=== PATIENT | male | born 1975 | race Caucasian/White ===

== ENCOUNTER 2017-03-20 07:12 | Emergency (ER) | payer BC ==
[~2017-03-20] VITALS: Ht 182.9 cm; Wt 77.1 kg
[~2017-03-20 07:12] MED LIST: HYDR-34 PO
[2017-03-20] MEDS ORDERED: ALTEPLASE 100 MG/VIAL (ACTIVASE) IV ONE ×2 (07:16→08:15)
[2017-03-20 07:35] LABS: BASOPHILS % (AUTO) 0 % (0-10); EOSINOPHILS # (AUTO) 0.2 10^3/uL (0.0-0.3); EOSINOPHILS % (AUTO) 2 % (0-10); LYMPHOCYTES # (AUTO) 3.6 X 10^3 (1.0-4.0); LYMPHOCYTES % (AUTO) 45 % (12-44); MEAN CORPUSCULAR HEMOGLOBIN 32 PG (25-34); MEAN CORPUSCULAR HGB CONC 35 G/DL (32-36); MEAN CORPUSCULAR VOLUME 90 FL (80-99); MEAN PLATELET VOLUME 10.1 FL (7.4-10.4); MONOCYTES # (AUTO) 0.6 X 10^3 (0.0-1.0); MONOCYTES % (AUTO) 8 % (0-12); NEUTROPHILS # (AUTO) 3.6 X 10^3 (1.8-7.8); NEUTROPHILS % (AUTO) 45 % (42-75); PLATELET COUNT 295 10^3/uL (130-400); RED BLOOD COUNT 5.49 10^6/uL (4.35-5.85); RED CELL DISTRIBUTION WIDTH 12.6 % (10.0-14.5)
[2017-03-20 07:51] LABS: PROTHROMBIN TIME PATIENT 13.3 SEC (12.2-14.7)
--- NOTE | 2017-03-20 07:51 | ED Neurological Problem ---
General Stated Complaint: POSS STROKE Source: patient, family, EMS Exam Limitations: physical impairment History of Present Illness Time seen by provider: 07:12 Initial Comments This 41-year-old Lebanese presents to the emergency room with acute strokelike symptoms that started abruptly at approximately 06:15. He had no symptoms upon waking this morning and developed these symptoms in the bathroom. Symptoms include right-sided gaze preference, draw of the head to the right, flaccid left upper extremity, and profound left-sided facial droop with dysarthria. Patient did fall after onset of symptoms but denies any injury. Stroke activation was paged prior to patient arrival based on EMS report. Patient was taken directly to CT upon arrival. Vital signs were stable. Fingerstick blood sugar was 140 per EMS. Allergies and Home Medications Allergies Coded Allergies: No Known Drug Allergies (Unverified , 12/28/09) Home Medications No Active Prescriptions or Reported Meds Constitutional: no symptoms reported Eyes: No Symptoms Reported Ears, Nose, Mouth, Throat: no symptoms reported Respiratory: no symptoms reported Cardiovascular: no symptoms reported Gastrointestinal: no symptoms reported Genitourinary: no symptoms reported Musculoskeletal: no symptoms reported Skin: no symptoms reported Psychiatric/Neurological: See HPI Endocrine: No Symptoms Reported Past Vvxxlzj-Dxamqd-Zzhqdg Hx Patient Social History Recent Foreign Travel: No Contact w/Someone Who Travel: No Surgeries History of Surgeries: Yes (cyst removed from chest) Surgeries: Abdominal (umbilical hernia repair) Respiratory History of Respiratory Disorde: No Cardiovascular History of Cardiac Disorders: Yes Cardiac Disorders: Deep Vein Thrombosis (after leg fracture) Neurological History of Neurological Disord: No Reproductive System Hx Reproductive Disorders: No Genitourinary History of Genitourinary Disor: No Gastrointestinal History of Gastrointestinal Di: No Endocrine History of Endocrine Disorders: Yes (hypo-testosterone) HEENT History of HEENT Disorders: No Cancer History of Cancer: No Psychosocial History of Psychiatric Problem: No Integumentary History of Skin or Integumenta: No Physical Exam Vital Signs Vital Sign - Last 12Hours 03/20/17 07:12 Temp 98.1 Pulse 79 Resp 18 B/P (MAP) 154/82 (106) Pulse Ox 98 Capillary Refill : General Appearance: WD/WN, mild distress HEENT: PERRL/EOMI, normal ENT inspection Neck: normal inspection Respiratory: lungs clear, normal breath sounds, no respiratory distress, no accessory muscle use Cardiovascular: regular rate, rhythm, no edema, no murmur Gastrointestinal: normal bowel sounds, non tender, soft Extremities: normal inspection, no pedal edema Neurologic/Psychiatric: alert, oriented x 3, abnormal executive director II-XII (left-sided facial droop causing dysarthria), EOM palsy (right-sided gaze preference, difficulty tracking to the left), facial droop, motor weakness (flaccid left upper extremity. Minimal weakness of the left leg) Crainal Nerves: normal hearing, PERRL, abnormal eye position, abnormal speech Coordination/Gait: ABN nose to finger (L) Motor/Sensory: sensory deficit (left upper extremity), weak motor strength LUE Skin: normal color, warm/dry Stroke NIH Stroke Scale Assessment Select: Initial Level of Consciousness: 0=Alert (0), Level of Consciousness- Questions: 0=Answers both month/age (0), LOC Commands: 0=Performs both tasks (0) , Gaze: Partial Gaze Palsy (1), Visual Disla: 2=Complete hemianopia (2), Facial Movement (Facial Paresis): 3=Complete paralysis (3), Motor Function-Arms Right: 0=No drift (0), Motor Function-Arms Left: 4=No movement (4), Motor Function-Legs Right: 0=No drift (0), Motor Function-Legs Left: 0=No drift (0), Limb Ataxia: 0=Absent (0), Sensory: 1=Mild to Moderate loss (1), Best Language: 0=No aphasia (0), Dysarthria: 1=Mild to moderate loss (1), Extinction & Inattention: 0=No abnormality (0), Total: 12 Progress/Results/Core Measures Results/Orders Lab Results Laboratory Tests Test 03/20/17 07:20 03/20/17 08:13 Range/Units White Blood Count 8.0 4.3-11.0 10^3/uL Red Blood Count 5.49 4.35-5.85 10^6/uL Hemoglobin 17.5 13.3-17.7 G/DL Hematocrit 50 40-54 % Mean Corpuscular Volume 90 80-99 FL Mean Corpuscular Hemoglobin 32 25-34 PG Mean Corpuscular Hemoglobin Concent 35 32-36 G/DL Red Cell Distribution Width 12.6 10.0-14.5 % Platelet Count 295 130-400 10^3/uL Mean Platelet Volume 10.1 7.4-10.4 FL Neutrophils (%) (Auto) 45 42-75 % Lymphocytes (%) (Auto) 45 H 12-44 % Monocytes (%) (Auto) 8 0-12 % Eosinophils (%) (Auto) 2 0-10 % Basophils (%) (Auto) 0 0-10 % Neutrophils # (Auto) 3.6 1.8-7.8 X 10^3 Lymphocytes # (Auto) 3.6 1.0-4.0 X 10^3 Monocytes # (Auto) 0.6 0.0-1.0 X 10^3 Eosinophils # (Auto) 0.2 0.0-0.3 10^3/uL Basophils # (Auto) 0.0 0.0-0.1 10^3/uL Prothrombin Time 13.3 12.2-14.7 SEC INR Comment 1.0 0.8-1.4 Activated Partial Thromboplast Time 23 L 24-35 SEC D-Dimer 0.50 H 0.00-0.49 UG/ML Sodium Level 139 135-145 MMOL/L Potassium Level 3.8 3.6-5.0 MMOL/L Chloride Level 105 98-107 MMOL/L Carbon Dioxide Level 22 21-32 MMOL/L Anion Gap 12 5-14 MMOL/L Blood Urea Nitrogen 14 7-18 MG/DL Creatinine 0.96 0.60-1.30 MG/DL Estimat Glomerular Filtration Rate > 60 BUN/Creatinine Ratio 15 Glucose Level 130 H 70-105 MG/DL Calcium Level 9.1 8.5-10.1 MG/DL Total Bilirubin 0.8 0.1-1.0 MG/DL Aspartate Amino Transf (AST/SGOT) 24 5-34 U/L Alanine Aminotransferase (ALT/SGPT) 35 0-55 U/L Alkaline Phosphatase 47 40-136 U/L Troponin I < 0.30 <0.30 NG/ML Total Protein 7.6 6.4-8.2 GM/DL Albumin 4.0 3.2-4.5 GM/DL Urine Color YELLOW Urine Clarity CLEAR Urine pH 7 5-9 Urine Specific Brownell 1.010 L 1.016-1.022 Urine Protein 1+ H NEGATIVE Urine Glucose (UA) NEGATIVE NEGATIVE Urine Ketones NEGATIVE NEGATIVE Urine Nitrite NEGATIVE NEGATIVE Urine Bilirubin NEGATIVE NEGATIVE Urine Urobilinogen NORMAL NORMAL MG/DL Urine Leukocyte Esterase 1+ H NEGATIVE Urine RBC (Auto) NEGATIVE NEGATIVE Urine RBC NONE /HPF Urine WBC RARE /HPF Urine Squamous Epithelial Cells RARE /HPF Urine Crystals NONE /LPF Urine Bacteria NEGATIVE /HPF Urine Casts NONE /LPF Urine Mucus NEGATIVE /LPF Urine Culture Indicated NO My Orders Orders - ANTHONY GRAVES MD Cbc With Automated Diff (03/20/17 07:16) Protime With Inr (03/20/17 07:16) Partial Thromboplastin Time (03/20/17 07:16) Comprehensive Metabolic Panel (03/20/17 07:16) Fibrin Degradation Products (03/20/17 07:16) Troponin I (03/20/17 07:16) Ua Culture If Indicated (03/20/17 07:16) Chest 1 View, Ap/Pa Only (03/20/17 07:16) Catheter(Urinary) Insert & Ass 03,15 (03/20/17 07:16) Ekg Tracing (03/20/17 07:16) Accucheck Stat ONCE (03/20/17 07:16) Saline Lock/Iv-Start (03/20/17 07:16) Saline Lock/Iv-Start (03/20/17 07:16) Vital Signs - Stroke Q15M (03/20/17 07:16) Ct Head Wo-R/O Stroke (03/20/17 07:16) O2 (03/20/17 07:16) Intake & Output 06,14,22 (03/20/17 07:16) Monitor-Rhythm Ecg Trace Only (03/20/17 07:16) Dysphagia Screening Tool (03/20/17 07:16) Post Thrombolytic Adminstratio (03/20/17 07:16) Alteplase (Activase) (Activase Injection (03/20/17 07:16) Ct Angio Head/Neck (03/20/17 07:19) Alteplase (Activase) (Activase Injection (03/20/17 08:15) Post Thrombolytic Adminstratio (03/20/17 08:03) Medications Given in ED Vital Signs/I&O Vital Sign - Last 12Hours 12/13/17 12/13/17 07:12 09:28 Temp 98.1 98.0 Pulse 79 81 Resp 18 16 B/P (MAP) 154/82 (106) Pulse Ox 98 97 ECG Initial ECG Impression Date: Mar 20, 2017 Initial ECG Impression Time: 07:41 Initial ECG Rate: 76 Initial ECG Rhythm: Normal Sinus Initial ECG Intervals: Normal Initial ECG Impression: Normal Comment Normal sinus rhythm with no ST elevation or depression. No abnormal intervals or axis deviation. Diagnostic Imaging Diagonstic Imaging: CT Plain Films/CT/US/NM/MRI: head Comments CT head viewed by me and report reviewed. See report below: NAME: [facility] REC#: [id number] PT STATUS: REG ER : 1975 PHYSICIAN: ANTHONY GRAVES MD ADMIT DATE: 03/20/17/ER Signed Date of Exam: 03/20/17 CT HEAD WO-R/O STROKE INDICATION: Right-sided deviation. Left-sided weakness. Drooling. Images of the head were obtained without contrast. The ventricles are normal in size, shape and position. There is no acute parenchymal hemorrhage, edema or mass. There is no extra-axial mass or hemorrhage. IMPRESSION: Normal CT of the head. Dictated by: Dictated on workstation # [id number] Dict: 03/20/17 075 Trans: 03/20/17 0755 Interpreted by: DAVID MICHAELS MD Electronically signed by: DAVID MICHAELS MD 03/20/17 0755 Diagonstic Imaging: Xray Plain Films/CT/US/NM/MRI: chest Comments NAME: [facility] REC#: [id number] PT STATUS: REG ER : 1975 PHYSICIAN: ANTHONY GRAVES MD ADMIT DATE: 03/20/17/ER Signed Date of Exam: 03/20/17 CHEST 1 VIEW, AP/PA ONLY EXAMINATION: Portable upright radiograph of the chest. INDICATION: Left-sided weakness. FINDINGS: There is slight rotation of the patient's position to the right side. The lungs are clear. The heart size is normal. No effusion or pneumothorax The mediastinum and lonny appear unremarkable. IMPRESSION: Unremarkable exam. Dictated by: Dictated on workstation # [id number] Dict: 03/20/17 08 Trans: 03/20/17852 Interpreted by: WENCESLAO BHAKTA MD Electronically signed by: WENCESLAO BHAKTA MD 03/20/1753 Diagonstic Imaging: CT Plain Films/CT/US/NM/MRI: other (angiogram of head and neck) Comments CT angiogram head and neck viewed by me and report reviewed. See report below: NAME: [facility] REC#: [id number] PT STATUS: REG ER : 1975 PHYSICIAN: ANTHONY GRAVES MD ADMIT DATE: 03/20/17/ER Signed Date of Exam: 03/20/17 CT ANGIO HEAD/NECK PROCEDURE: CT angiography of the head and CT angiography of the neck with and without contrast. TECHNIQUE: Contiguous noncontrast images were obtained from the skull base through the vertex. After intravenous contrast administration, helical CT angiography of the neck was performed. Source data was reformatted into multiple MIP projections. Delayed post contrast acquisition was also obtained. INDICATION: Right-sided weakness. Head is turned to the right. Muscle spasms. There are normal origins of the brachiocephalic vessels. The carotid and vertebral arteries are widely patent. There is no stenosis, occlusion or dissection in the cervical vessels. The right vertebral artery is diminutive compared to the left and appears to end in a PICA. Intracranial view shows the distal internal carotid and basilar arteries to be widely patent. There is no evidence for aneurysm, AVM, neovascularity or major vessel occlusion. The ventricles are normal in size, shape and position. There is no acute parenchymal hemorrhage, edema, mass or abnormal parenchymal enhancement. There is no extra-axial mass or hemorrhage. IMPRESSION: Normal CT angiography of the head and neck. Dictated by: Dictated on workstation # [id number] Dict: 03/20/17 0749 Trans: 03/20/17755 Interpreted by: DAVID MICHAELS MD Electronically signed by: DAVID MICHAELS MD 03/20/17755 Departure Impression Impression: Primary Impression: Acute right MCA stroke Disposition: 02 XFER SHT-TRM HOSP Condition: Stable Transfer Time Spoke to Accepting Phy: 08:03 Transfer Progress Notes 08:45 - Dr. Craven called back and stated patient does have an occlusion of the right M2 identified. Transfer to [facility] has been recommended. Patient and family agree and helicopter has been launched. Transfer Time: 09:28 Transfer Facility: [place], [place] Method of Transfer: Air Departure-Patient Inst. Referrals: EUSEBIA DEAL MD (PCP/Family) Primary Care Physician Scripts No Active Prescriptions or Reported Meds Critical Care Note Critical Care Start Time: 07:12 Progress 08:15 - Patient was taken immediately to CT scan upon arrival. CT was followed by CT angiogram of the head and neck. NIH stroke score was 12. TPA was immediately prepped. Stroke activation was paged prior to patient arrival. Patient cleared to the TPA exclusion criteria. CT of the head was read as normal. Risks and benefits of TPA were discussed with patient and his . Risks include up to a 6 percent chance of life-threatening bleed. They both expressed understanding and requested TPA administration. TPA is presently infusing. TPA bolus was administered at 08:04. I discussed the case with Dr. Craven, [facility] stroke neurologist. Results of imaging were reviewed with her. CT angiogram was also read as negative with no evidence of large vessel occlusion. Dr. Craven requested the images be clouded to her for review. That process is underway. 08:36 - Dr. Craven notified this provider that she identified no large thrombus on the CT angiogram. She will have the neuroradiologist review as well. Patient is having some improvement in head movement and sensation of the left upper extremity. 08:45 - Dr. Craven states the neuroradiologist at [facility] was able to identify an occlusion of the right TM 2. Patient has consented to transfer to [facility]. Symptoms are improving. 09:08 - Helicopter has just arrived for transfer. Most recent NIH was 5 and symptoms continue to improve. ANTHONY GRAVES MD Mar 20, 2017 07:51
--- NOTE | 2017-03-20 07:56 | Diagnostic Imaging Report ---
INDICATION: Right-sided deviation. Left-sided weakness. Drooling. Images of the head were obtained without contrast. The ventricles are normal in size, shape and position. There is no acute parenchymal hemorrhage, edema or mass. There is no extra-axial mass or hemorrhage. IMPRESSION: Normal CT of the head. Dictated by: Dictated on workstation # [id number]
--- NOTE | 2017-03-20 07:56 | Diagnostic Imaging Report ---
PROCEDURE: CT angiography of the head and CT angiography of the neck with and without contrast. TECHNIQUE: Contiguous noncontrast images were obtained from the skull base through the vertex. After intravenous contrast administration, helical CT angiography of the neck was performed. Source data was reformatted into multiple MIP projections. Delayed post contrast acquisition was also obtained. INDICATION: Right-sided weakness. Head is turned to the right. Muscle spasms. There are normal origins of the brachiocephalic vessels. The carotid and vertebral arteries are widely patent. There is no stenosis, occlusion or dissection in the cervical vessels. The right vertebral artery is diminutive compared to the left and appears to end in a PICA. Intracranial view shows the distal internal carotid and basilar arteries to be widely patent. There is no evidence for aneurysm, AVM, neovascularity or major vessel occlusion. The ventricles are normal in size, shape and position. There is no acute parenchymal hemorrhage, edema, mass or abnormal parenchymal enhancement. There is no extra-axial mass or hemorrhage. IMPRESSION: Normal CT angiography of the head and neck. Dictated by: Dictated on workstation # [id number]
[2017-03-20 07:57] LABS: ALANINE AMINOTRANSFERASE 35 U/L (0-55); ANION GAP 12 MMOL/L (5-14); ASPARTATE AMINO TRANSFERASE 24 U/L (5-34); BILIRUBIN,TOTAL 0.8 MG/DL (0.1-1.0); BLOOD UREA NITROGEN 14 MG/DL (7-18); BUN/CREATININE RATIO 15; CALCIUM 9.1 MG/DL (8.5-10.1); CARBON DIOXIDE 22 MMOL/L (21-32); CHLORIDE 105 MMOL/L (98-107); CREATININE SERUM 0.96 MG/DL (0.60-1.30); GFR ESTIMATED > 60; GLUCOSE 130 MG/DL (70-105); POTASSIUM 3.8 MMOL/L (3.6-5.0); SODIUM 139 MMOL/L (135-145); TOTAL PROTEIN 7.6 GM/DL (6.4-8.2)
[2017-03-20 08:03] LABS: TROPONIN I < 0.30 NG/ML (<0.30)
--- NOTE | 2017-03-20 08:03 | Diagnostic Imaging Report ---
EXAMINATION: Portable upright radiograph of the chest. INDICATION: Left-sided weakness. FINDINGS: There is slight rotation of the patient's position to the right side. The lungs are clear. The heart size is normal. No effusion or pneumothorax The mediastinum and lonny appear unremarkable. IMPRESSION: Unremarkable exam. Dictated by: Dictated on workstation # [id number]
[2017-03-20 08:25] LABS: BILIRUBIN,URINE NEGATIVE (NEGATIVE); KETONES,URINE NEGATIVE (NEGATIVE); LEUKOCYTE ESTERASE ,URINE 1+ (NEGATIVE); NITRITE,URINE NEGATIVE (NEGATIVE); PH,URINE 7 (5-9); PROTEIN,URINE 1+ (NEGATIVE); UROBILINOGEN,URINE NORMAL (NORMAL)
[2017-03-20 08:35] LABS: SQUAMOUS EPITHELIAL CELL,UR RARE /HPF; WBC,URINE RARE /HPF
[2017-03-20 09:28] VITALS: BP 143/85
== END 2017-03-20 09:28 | disposition short-term general hospital (02) ==
LOC: EDUNIT# 07:12 → ER 07:13
DX: I63.411 Cerebral infarction due to embolism of right middle cerebral artery (principal); Z87.19 Personal history of other diseases of the digestive system; Z86.718 Personal history of other venous thrombosis and embolism
CPT/HCPCS: 36415; 51702; 70450; 70496; 70498; 71010; 80053; 81000; 84484; 85025; 85379; 85610; 85730; 93005; 93041

== ENCOUNTER → 2017-07-24 | Day surgery (SDC) | payer BC ==
[~2017-07-24] VITALS: Ht 188 cm; Wt 76.2 kg
[~2017-07-24] MED LIST changes: +LIDOCAINE 1% INJ 50 ML (XYLOCAINE) VIAL ONE
--- OUTSIDE RECORDS SUMMARY | 2017-07-24 15:01 | XMS REPORT | Encounter Summary ---
Author Author [facility] Organization [facility] Address Unknown Phone Unavailable Care Team Providers Care Abrasive Mixer Name Role Phone No Pcp, Na PCP Unavailable Reason for Visit * Reason Comments Post-hospital Follow Up Encounter Details Date Type Department Care Team Description 05/23/2017 Office Visit [facility] Shruthi Santana MD Cerebral infarction due [facility] [address] to thrombosis of right [facility] 2012 middle cerebral artery [address] [place] [address] (HCC) (Primary Dx) [place], [place] [phone] [id number] Social History Tobacco Use Types Packs/Day Years Used Date Never Smoker Smokeless Tobacco: Never Used Alcohol Use Drinks/Week oz/Week Comments No Sex Assigned at Date Recorded Not on file as of this encounter Last Filed Vital Signs Vital Sign Reading Time Taken Blood Pressure 124/72 05/23/2017 1:26 PM CIVIL CLERK Pulse 64 05/23/2017 1:26 PM CIVIL CLERK Temperature - - Respiratory Rate - - Oxygen Saturation - - Inhaled Oxygen - - Concentration Weight 76.2 kg (168 lb) 05/23/2017 1:26 PM CIVIL CLERK Height 188 cm (6' 2") 05/23/2017 1:26 PM CIVIL CLERK Body Mass Index 21.57 05/23/2017 1:26 PM CIVIL CLERK in this encounter Functional Status Functional Status Response Date of Assessment Does the patient have a hearing impairment: No 03/29/2017 Does the patient have a visual impairment: Yes 03/28/2017 Does the patient have impaired ambulation: Yes 03/28/2017 Does the patient have an activity of daily living Yes 03/28/2017 (ADL) impairment: Does the patient have an instrumental activity of Yes 03/28/2017 daily living (IADL) impairment: Cognitive Status Response Date of Assessment Does the patient have a cognitive impairment: Yes 03/28/2017 as of this encounter Instructions * Patient Instructions - Shruthi Santana MD - 05/23/2017 1:30 PM CIVIL CLERK Increase gabapentin to 300 mg twice daily x 4 days, then increase to 300 mg three times daily. Email [email or web address], in this encounter Progress Notes * Shruthi Santana MD - 05/23/2017 1:30 PM CIVIL CLERK Formatting of this note may be different from the original. Date of Service: 05/23/2017 Subjective: Thomas Osei is a 41 y.o. male. Patient was admitted 03/20/17 to at [facility]. On 03/20 AM patient developed acute onset of left facial droop and left UE weakness, initial NIHSS 12. He received IV tPA and had a CTA showing right M2 occlusion. He was transferred to [facility] for mechanical thrombectomy, however unfortunately this was unsuccessful. He was taken to NEICU with an NIHSS of 19. Stroke remained cryptogenic after expanded work-up ( hypercoagulable panel negative, TTE unremarkable, NICKO unremarkable, OSH CTA H/N without significant atherosclerosis, telemetry without atrial fibrillation). Patient was discharged to Rehab on 03/28, with new prescriptions of ASA 325 mg, atorvastatin 40, fluoxetine 20 mg qday. At time of discharge to Rehab, patient continued to have 0/5 strength in LUE, LLE, left sided extinction, left visual field cut. History of Present Illness Discharged from Rehab 05/01/2017. He continues in outpatient therapies, seeing PT /OT/Speech three times per week. Remains on ASA 325 mg tablet daily and atorvastatin 40 mg qday, tolerating both. No significant return of movement of LUE proximally, distally he has some ability to extend his wrist now. Continues to have LLE weakness with foot drop, he received his AFO last week. Last Saturday noted that he had more difficulty with stiffness in the jaw; this gets worse the more he chews or the longer he is speaking. Continues to have sharp, shooting pains intermittently in his left lower extremity; sometimes these are to the point of preventing sleep. 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 Review of Systems Musculoskeletal: Pain Neurological: Positive for speech difficulty, weakness and numbness. All other systems reviewed and are negative. Objective: aspirin 325 mg tablet Take 1 tablet by mouth daily. Take with food. atorvastatin (LIPITOR) 40 mg tablet Take 1 tablet by mouth daily. baclofen (LIORESAL) 20 mg tablet Take 1 tablet by mouth three times daily. docusate (COLACE) 100 mg capsule Take 1 capsule by mouth twice daily. fluoxetine (PROZAC) 20 mg capsule Take 1 capsule by mouth daily. gabapentin (NEURONTIN) 300 mg capsule Take 1 capsule by mouth at bedtime daily. melatonin 5 mg tab Take 1 tablet by mouth at bedtime daily. methocarbamol (ROBAXIN) 750 mg tablet Take 1 tablet by mouth three times daily as needed for Spasms. pantoprazole DR (PROTONIX) 40 mg tablet Take 1 tablet by mouth daily. senna (SENOKOT) 8.6 mg tablet Take 1 tablet by mouth twice daily. traZODone (DESYREL) 50 mg tablet Take 1 tablet by mouth at bedtime as needed. Vitals: 05/23/17 1326 BP: 124/72 Pulse: 64 Weight: 76.2 kg (168 lb) Height: 188 cm (74") Body mass index is 21.57 kg/m. Physical Exam General: Alert, does not appear in acute distress. HEENT: EOMI, nares patent, oropharynx unobstructed. CV: Distal pulses palpable. Capillary refill <2 seconds. Lungs: Non-labored respirations. Symmetric chest rise. No audible wheezing. Abdomen: Soft, non-tender, non-distended. Extremities: No clubbing, cyanosis or edema. Skin: Warm, dry, intact. Neuro: Mentation: Alert, oriented x 4. Speech: Mild dysarthria, diminished prosody of speech, however fluent with intact comprehension, object naming intact. CN: Visual villatoro with restriction of left visual villatoro compared to right however improved from admission exam, EOMI without nystagmus, continued left lower facial droop and mild left upper facial weakness, hearing grossly intact to conversation, palatal elevation symmetric, no SCM/trapezius atrophy, tongue is midline without atrophy. Motor: Normal bulk bilaterally. Mild spasticity LUE, normal tone RUE/RLE. Strength remains 1/5 LUE proximally and distally, 2/5 LHF, could not test distal lower extremity with AFO. RUE/RLE 5/5 strength throughout. Sensation: Intact to light touch, neglect improved. Coordination: RUE finger to nose without ataxia, not tested on left. Reflexes: 3/4 hyper-reflexia on left biceps, brachioradialis, patellar. 2/4 throughout right. Gait: Not tested, patient primarily in wheelchair. Assessment: 41 y/o male with right M2 occlusion on 03/20 resulting in moderate right MCA distribution stroke. Patient received IV tPA initially however had unsuccessful thrombectomy, with ongoing deficits of left sided weakness face and arm > leg. Overall is stable and remains working with outpatient physical/occupation/ speech therapies. No significant return of movement on left side, and remains wheelchair bound. Spasticity and neuropathic pain has been an ongoing issue; patient complains of "tightness" in left jaw and more difficulty speaking and swallowing after prolonged activity. Believe this is more related to spasticity than affects of new stroke, however advised patient to contact if this does not improve or worsens and will need to reconsider imaging. Stroke work-up thus far , including expanded hypercoagulable panel has been negative. Patient is presently wearing a 30-day event monitor, discussed need for implantable loop recorder in the future. Plan: 1) Right MCA Stroke - Continue ASA 325 mg qday - Continue atorvastatin 40 mg qday, LDL 118 with goal <70 - HbA1c within goal at 5.2% - BP stable at 124/72, patient is not on any anti-hypertensives. Advised to spot -check this at home with BP monitor. - Never smoker, encouraged continued cessation - Continue baclofen 20 mg TID for post-stroke spasticity. Increase gabapentin to 300 mg TID. - Can increase melatonin to 10 mg QHS for insomnia. - Will discuss implantable loop recorder at next visit if 30-day event monitor is unremarkable. - Patient is to contact clinic if dsyarthria/dysphagia difficulties starting last Saturday do not improve for consideration of repeat MRI Brain. Patient seen and discussed with Dr. Bird. Shruthi Santana MD Stroke Fellow in this encounter Plan of Treatment Not on fileas of this encounter Visit Diagnoses Diagnosis Cerebral infarction due to thrombosis of right middle cerebral artery (HCC) - Primary Cerebral thrombosis with cerebral infarction
--- OUTSIDE RECORDS SUMMARY | 2017-07-24 15:01 | XMS REPORT | Encounter Summary ---
Author Author [facility] Organization [facility] Address Unknown Phone Unavailable Care Team Providers Care Foster Care Case Manager Name Role Phone No Pcp, Na PCP Unavailable Reason for Referral * Consult, Test & Treat (Routine) Status Reason Specialty Diagnoses / Referred By Referred To Procedures Contact Contact Closed Specialty Cardiology Diagnoses [facility] Cerebrovascular MD Kyler [address] Required accident (CVA) [address] due to embolism [address] of right middle MS 2011 [place] [address] (HCC) [phone] Phone: Scheduling Instructions Within the next 1-2 weeks. Encounter Details Date Type Department Care Team Description 07/09/2017 Orders Only [facility] Shruthi Santana MD Cerebrovascular accident Physicians-Neurology [address] (CVA) due to embolism of [facility] ON [address] [place] [address] right middle cerebral [address] [place] [address] artery (HCC) (Primary Dx) [place], [place] [phone] Social History Tobacco Use Types Packs/Day Years Used Date Never Smoker Smokeless Tobacco: Never Used Alcohol Use Drinks/Week oz/Week Comments No Sex Assigned at Date Recorded Not on file as of this encounter Functional Status Functional Status Response [...] impairment: Yes 03/28/2017 as of this encounter Plan of Treatment Name Priority Associated Diagnoses Order Schedule AMB REFERRAL TO ADULT CARDIOLOGY Routine Cerebrovascular accident Ordered: 07/09/2017 (CVA) due to embolism of right middle cerebral artery (HCC) as of this encounter Visit Diagnoses Diagnosis Cerebrovascular accident (CVA) due to embolism of right middle cerebral artery (HCC) - Primary
--- OUTSIDE RECORDS SUMMARY | 2017-07-24 15:01 | XMS REPORT | Encounter Summary ---
Author Author [facility] Organization [facility] Address Unknown Phone Unavailable Care Team Providers Care High Lighter Name Role Phone No Pcp, Na PCP Unavailable Encounter Details Date Type Department Care Team Description 06/18/2017 [facility] Cardiology Uvaldo Alas MD Encounter [address] [place] [address] [place] [address] MS [address] [place], [place] [phone] Social History Tobacco Use Types Packs/Day Years [...] impairment: Yes 03/28/2017 as of this encounter Medications at Time of Discharge Medication Sig. Disp. Refills Start Date End Date aspirin 325 mg tablet Take 1 tablet by mouth 03/28/2017 daily. Take with food. atorvastatin (LIPITOR) 40 Take 1 tablet by mouth 30 tablet 1 2017 mg tablet daily. baclofen (LIORESAL) 20 mg Take 1 tablet by mouth 90 tablet 1 2017 tablet three times daily. docusate (COLACE) 100 mg Take 1 capsule by mouth 180 capsule 3 2016 capsule twice daily. fluoxetine (PROZAC) 20 mg Take 1 capsule by mouth 30 capsule 1 2017 capsule daily. gabapentin (NEURONTIN) Take 1 capsule by mouth 30 capsule 2017 300 mg capsule at bedtime daily. melatonin 5 mg tab Take 1 tablet by mouth at 60 each 3 05/01/2017 bedtime daily. methocarbamol (ROBAXIN) Take 1 tablet by mouth 60 tablet 3 05/01/2017 750 mg tablet three times daily as needed for Spasms. pantoprazole DR Take 1 tablet by mouth 30 tablet 1 05/01/2017 (PROTONIX) 40 mg tablet daily. senna (SENOKOT) 8.6 mg Take 1 tablet by mouth 90 tablet 3 03/28/2017 tablet twice daily. traZODone (DESYREL) 50 mg Take 1 tablet by mouth at 90 tablet 3 2017 tablet bedtime as needed. as of this encounter Plan of Treatment Not on fileas of this encounter Visit Diagnoses Not on filein this encounter
--- OUTSIDE RECORDS SUMMARY | 2017-07-24 15:01 | XMS REPORT | Encounter Summary ---
Author Author [facility] Organization [facility] Address Unknown Phone Unavailable Care Team Providers Care Housekeeper/Laundry Assistant Name Role Phone No Pcp, Na PCP Unavailable Encounter Details Date Type Department Care Team Description 05/23/2017 Documentation [facility] Shruthi Santana MD Physicians-Neurology [address] [facility] [address] [place] [address] [place] [address] [place], [place] [phone] Social History Tobacco Use Types Packs/Day Years [...]
--- OUTSIDE RECORDS SUMMARY | 2017-07-24 15:01 | XMS REPORT | Encounter Summary ---
Author Author [facility] Organization [facility] Address Unknown Phone Unavailable Care Team Providers Care Cryptography Teacher Name Role Phone No Pcp, Na PCP Unavailable Reason for Visit * Reason Comments General Question Encounter Details Date Type Department Care Team Description 05/09/2017 Telephone [facility] - Alaina Holloway MD General Question Rehabilitation Medicine [address] [facility] [address] [place] [address] [address] [facility] MED [phone] [place] [address] Social History Tobacco Use Types Packs/Day Years [...] impairment: Yes 03/28/2017 as of this encounter Miscellaneous Notes * Telephone Encounter - Merly Sales MA - 05/09/2017 11:07 AM SHOE WORKER Received a call from lisa assembly repairer for mr mckeon asking a question about him being on a heart monitor. After reviewing the pts chart Dr Holloway was not involved with any cardiology care and I gave her the number to the cardiology department. She was fine with this information. Call ended. in this encounter Plan of Treatment Not on fileas of this encounter Visit Diagnoses Not on filein this encounter
--- OUTSIDE RECORDS SUMMARY | 2017-07-24 15:01 | XMS REPORT | Clinical Summary ---
Author Author [facility] Organization [facility] Address Unknown Phone Unavailable Care Team Providers Care French Drawer Name Role Phone No Pcp, Na PCP Unavailable Source Comments Some departments are not documenting in the electronic medical record. If you do not see the information that you expected, contact Release of Information in the Health Information Management department at [phone] for further assistance in locating additional records.[facility] Allergies No Known Allergies Current Medications Prescription Sig. Disp. Refills Start End Date Status Date aspirin 325 mg tablet Take 1 tablet by mouth 03/28/20 Active daily. Take with food. 17 docusate (COLACE) 100 mg Take 1 capsule by mouth 180 capsule 3 Active capsule twice daily. 17 senna (SENOKOT) 8.6 mg Take 1 tablet by mouth 90 tablet 3 03/28/20 Active tablet twice daily. 17 gabapentin (NEURONTIN) Take 1 capsule by mouth 30 capsule 1 05/01/19 Active 300 mg capsule at bedtime daily. 18 atorvastatin (LIPITOR) 40 Take 1 tablet by mouth 30 tablet 05/01/19 Active mg tablet daily. 18 baclofen (LIORESAL) 20 mg Take 1 tablet by mouth 90 tablet 1 05/01/19 Active tablet three times daily. 18 fluoxetine (PROZAC) 20 mg Take 1 capsule by mouth 30 capsule 1 Active capsule daily. [address] Take 1 tablet by mouth 30 tablet 1 05/01/19 Active (PROTONIX) 40 mg tablet daily. 18 melatonin 5 mg tab Take 1 tablet by mouth at 60 each 3 05/01/19 Active bedtime daily. 18 traZODone (DESYREL) 50 mg Take 1 tablet by mouth at 90 tablet 3 Active tablet bedtime as needed. 18 methocarbamol (ROBAXIN) Take 1 tablet by mouth 60 tablet 3 05/01/19 Active 750 mg tablet three times daily as 18 needed for Spasms. 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 Therefore he does not have an indication for therapeutic anticoagulation and should be continued on aspirin therapy. He can follow up with us on a PRN basis. Patient seen and discussed with Dr. Esparza. Left-sided neglect 03/28/2017 Impaired mobility and ADLs 03/28/2017 Left hemiparesis (HCC) 03/23/2017 Cerebrovascular accident (CVA) due to thrombosis of right middle cerebral artery (HCC) Stroke (cerebrum) (HCC) 03/20/2017 Resolved Problems Problem Noted Date Resolved Date Hyponatremia 03/29/2017 04/19/2017 UTI (urinary tract infection) 03/28/2017 04/19/2017 Urinary retention 03/28/2017 04/19/2017 Cerebral edema (HCC) 03/25/2017 03/28/2017 Clonus 03/23/2017 03/28/2017 Oropharyngeal dysphagia 03/23/2017 03/28/2017 Hypokalemia 03/23/2017 03/28/2017 DVT (deep venous thrombosis) (HCC) 03/21/2017 03/28/2017 Overview: Hx of left leg thrombus following traumatic fracture. Was on warfarin x 3 months. Encounters Date Type Specialty Care Team Description 07/09/2017 Telephone Neurology Shruthi Santana MD Referral 07/09/2017 Orders Only Neurology Shruthi Santana MD Cerebrovascular accident (CVA) due to embolism of right middle cerebral artery (HCC) (Primary Dx) 07/03/2017 Lucina Riggins, heel nailing machine operator Only 07/03/2017 Lucina Riggins RN Documentation Only 06/19/2017 Telephone Rehabilitation Medicine Alaina Holloway MD Records Request 06/18/2017 Hospital Cardiology Uvaldo Alas MD Encounter 05/23/2017 Office Visit Neurology Shruthi Santana MD Cerebral infarction due to thrombosis of right middle cerebral artery (HCC) (Primary Dx) 05/23/2017 Documentation Neurology Shruthi Santana MD 05/15/2017 Office Visit Oncology Melodie Esparza MD Cerebrovascular accident (CVA) due to thrombosis of right middle cerebral artery (HCC); History of DVT (deep vein thrombosis) 05/09/2017 Telephone Rehabilitation Medicine Alaina Holloway MD General Question 04/30/2017 Procedure Pass Rehabilitation 03/28/2017 Hospital Rehabilitation Alaina Holloway MD Cerebrovascular accident - Encounter (CVA) due to thrombosis 05/01/2017 of right middle cerebral artery (HCC) from Last 3 Months Family History Medical History Relation Name Comments Stroke Mother Relation Name Status Comments Father Alive Mother Alive Social History Tobacco Use Types Packs/Day Years Used Date Never Smoker Smokeless Tobacco: Never Used Alcohol Use Drinks/Week oz/Week Comments No Sex Assigned at Date Recorded Not on file Last Filed Vital Signs Vital Sign Reading Time Taken Blood Pressure 124/72 05/23/2017 1:26 PM PILLING MACHINE OPERATOR Pulse 64 05/23/2017 1:26 PM PILLING MACHINE OPERATOR Temperature 36.9 C (98.5 F) 05/15/2017 2:37 PM PILLING MACHINE OPERATOR Respiratory Rate 20 05/15/2017 2:37 PM PILLING MACHINE OPERATOR Oxygen Saturation 97% 05/01/2017 6:32 AM PILLING MACHINE OPERATOR Inhaled Oxygen - - Concentration Weight 76.2 kg (168 lb) 05/23/2017 1:26 PM PILLING MACHINE OPERATOR Height 188 cm (6' 2") 05/23/2017 1:26 PM PILLING MACHINE OPERATOR Body Mass Index 21.57 05/23/2017 1:26 PM PILLING MACHINE OPERATOR Plan of Treatment Health Maintenance Due Date Last Done Comments PHYSICAL (COMPREHENSIVE) 1984 EXAM PERTUSSIS VACCINE 1988 HIV SCREENING 1992 TETANUS VACCINE 1994 INFLUENZA VACCINE 01/06/2018 Implants Implanted Type Area Nuclear Medicine Medical Director Device Expiration Model / Identifier Date Serial / Lot Device Closure 70cm 8fr .038in Right: TERUMO:TERUMO [id number] 2017 [id number] / Angio-Seal Vip [employer]-Plus - Sn/A Femoral MED 1813 N/A / Implanted: Qty: 1 on 03/20/2017 by Artery [id number] Arben Diaz MD Results * EVENT MONITOR (06/18/2017 10:59 AM) Component Value Ref Range Referring Provider Iris Santana Specimen Performing Laboratory OTHER OUTSIDE LAB Narrative 1.The patient is monitored for 35 days with a cardio labs auto triggered looping event monitor for evaluation of bradycardia 2.There are 2 transmissions.No symptoms reported with either transmission.On both occasions the patient is in sinus bradycardia with heart rates of 55-60 bpm with no pauses.On one recording there are occasional PVCs. 3.There are no symptomatic recordings 4.There are no pauses.There is no bradycardia identified other than sinus bradycardia.There are no significant arrhythmias.There are only 2 transmissions Prabhjot Bates MD * UA REFLEX CULTURE LABEL (04/30/2017 5:45 PM) Component Value Ref Range UA Reflex Culture LAB LABEL Specimen Performing Laboratory [facility] [address] [place], [place] [id number] * URINALYSIS MICROSCOPIC REFLEX TO CULTURE (04/30/2017 5:45 PM) Component Value Ref Range WBCs,UA 0-2 0 - 2 /HPF RBCs,UA 0-2 0 - 3 /HPF Comment,UA Urine submitted for reflex culture if criteria are met:WBC>10, positive nitrite and/or >=1+ leukocyte esterase. If quantity is not sufficient, an addendum will follow. Hyaline Cast 0-2 Specimen Performing Laboratory U[facility] MAIN [facility] [address] [place] [id number] * URINALYSIS DIPSTICK REFLEX TO CULTURE (04/30/2017 5:45 PM) Component Value Ref Range Color,UA YELLOW Turbidity,UA CLEAR CLEAR-CLEAR Specific Hiko-Urine 1.019 1.003 - 1.035 pH,UA 6.0 5.0 - 8.0 Protein,UA NEG NEG-NEG Glucose,UA NEG NEG-NEG Ketones,UA NEG NEG-NEG Bilirubin,UA NEG NEG-NEG Blood,UA NEG NEG-NEG Urobilinogen,UA NORMAL NORM-NORMAL Nitrite,UA NEG NEG-NEG Leukocytes,UA NEG NEG-NEG Urine Ascorbic Acid, UA NEG NEG-NEG Specimen Performing Laboratory U[facility] MAIN LAB [address] [place] [id number] * CT HEAD WO CONTRAST (04/30/2017 11:12 AM) Specimen Performing Laboratory [facility] RAD RESULTS Impressions 1. Expected evolution of the large right subacute to chronic right MCA territory infarct with resolution of associated mass effect. 2. Subtle decreased density in the right thalamus is likely related to Wallerian degeneration. New right thalamic ischemia is considered less likely. Approved by Xiang Ruffin D.O. on 04/30/2017 11:53 AM By my electronic signature, I attest that I have personally reviewed the images for this examination and formulated the interpretations and opinions expressed in this report Finalized by Nathan Lazo M.D. on 04/30/2017 11:54 AM. Dictated by Xiang Ruffin D.O. on 04/30/2017 11:18 AM. Narrative EXAM: CT HEAD HISTORY: Male, 41 years old. Functional decline, increased difficulty with motor initiation. TECHNIQUE: Multiple contiguous axial images were obtained of the brain without intravenous contrast. COMPARISON: Multiple prior CT head examinations including the most recent dated 03/23/2017 FINDINGS: Expected evolution of the large now late subacute to chronic right MCA territory infarct, with resolution of mass effect and developing mild associated ex vacuo dilatation of the right lateral ventricle. Subtle decreased density in the right thalamus is likely related to Wallerian degeneration. Small posterior right cerebellar infarct is unchanged. There is no midline shift or mass effect. The lora white matter interfaces are otherwise maintained. The basal cisterns are patent. There is no evidence of acute intracranial hemorrhage or extra-axial fluid collection. The mastoid air cells and visualized paranasal sinuses are well-aerated. Procedure Note Interface, Radiant Results - 04/30/2017 11:57 AM PILLING MACHINE OPERATOR EXAM: CT HEAD HISTORY: Male, 41 years old. Functional decline, increased difficulty with motor initiation. TECHNIQUE: Multiple contiguous axial images were obtained of the brain without intravenous contrast. COMPARISON: Multiple prior CT head examinations including the most recent dated 03/23/2017 FINDINGS: Expected evolution of the large now late subacute to chronic right MCA territory infarct, with resolution of mass effect and developing mild associated ex vacuo dilatation of the right lateral ventricle. Subtle decreased density in the right thalamus is likely related to Wallerian degeneration. Small posterior right cerebellar infarct is unchanged. There is no midline shift or mass effect. The lora white matter interfaces are otherwise maintained. The basal cisterns are patent. There is no evidence of acute intracranial hemorrhage or extra-axial fluid collection. The mastoid air cells and visualized paranasal sinuses are well-aerated. IMPRESSION 1. Expected evolution of the large right subacute to chronic right MCA territory infarct with resolution of associated mass effect. 2. Subtle decreased density in the right thalamus is likely related to Wallerian degeneration. New right thalamic ischemia is considered less likely. Approved by Xiang Ruffin D.O. on 04/30/2017 11:53 AM By my electronic signature, I attest that I have personally reviewed the images for this examination and formulated the interpretations and opinions expressed in this report Finalized by Nathan Lazo M.D. on 04/30/2017 11:54 AM. Dictated by Xiang Ruffin D.O. on 04/30/2017 11:18 AM. * CBC (04/30/2017 8:47 AM) Component Value Ref Range White Blood Cells 5.8 4.5 - 11.0 K/UL RBC 5.12 4.4 - 5.5 M/UL Hemoglobin 16.3 13.5 - 16.5 GM/DL Hematocrit 47.7 40 - 50 % MCV 93.1 80 - 100 FL MCH 31.8 26 - 34 PG MCHC 34.2 32.0 - 36.0 G/DL RDW 12.9 11 - 15 % Platelet Count 200 150 - 400 K/UL MPV 8.5 7 - 11 FL Specimen Performing Laboratory Blood [facility] [address] [place] [id number] * BASIC METABOLIC PANEL (04/30/2017 8:47 AM) Component Value Ref Range Sodium 137 137 - 147 MMOL/L Potassium 3.7 3.5 - 5.1 MMOL/L Chloride 104 98 - 110 MMOL/L CO2 26 21 - 30 MMOL/L Anion Gap 7 3 - 12 Glucose 99 70 - 100 MG/DL Blood Urea Nitrogen 14 7 - 25 MG/DL Creatinine 0.84 0.4 - 1.24 MG/DL Calcium 9.8 8.5 - 10.6 MG/DL eGFR Non >60 >60 mL/min Comment: The eGFR is not validated for use in drug dosing adjustments.Continue to use estimated creatinine clearance per dosing reference text.Please contact the Clinical Pharmacist for questions. eGFR >60 >60 mL/min Comment: The eGFR is not validated for use in drug dosing adjustments.Continue to use estimated creatinine clearance per dosing reference text.Please contact the Clinical Pharmacist for questions. Specimen Performing Laboratory Blood [facility] [address] [place] [address] from Last 3 Months
--- OUTSIDE RECORDS SUMMARY | 2017-07-24 15:01 | XMS REPORT | Continuity of Care Document ---
Author Author [facility] Organization [facility] Address Unknown Phone Unavailable Care Team Providers Care Principal Software Engineer Name Role Phone [employer] Unavailable Unavailable Problems Medications Allergies, Adverse Reactions, Alerts Immunizations Results Vital Signs Encounters Location Location Details Encounter Type Encounter Number Reason For Visit Attending Provider ADM Date DC Date Status Source INPATIENT [id number] GRISELDA LOZANO 03/20/20172016 Active [facility] REHAB [id number] GEOVANNY LINK V 03/28/20172017 Active [facility] CA SERIES [id number] ABDMAHSA CAPRI 04/17/2017 Active [facility] [place] SER[place] [id number] ABDULRAGABRIELLEEM CAPRI 05/15/2017 Active [facility] OUTPATIENT [id number] GENARO FARMER 05/23/2017 Active [facility] OUTPATIENT [id number] MAU HICKMAN 05/28/2017 Active [facility] OUTPATIENT [id number] GRISELDA LOZANO 06/18/20172017 Active [facility] O GEOVANNY LINK V 07/29/2017 Active [facility] Procedures Plan of Care Social History Assessment and Plan Family History Advance Directives Functional Status
--- OUTSIDE RECORDS SUMMARY | 2017-07-24 15:01 | XMS REPORT | Encounter Summary ---
Author Author [facility] Organization [facility] Address Unknown Phone Unavailable Care Team Providers Care Economics Faculty Member Name Role Phone No Pcp, Na PCP Unavailable Reason for Visit * Reason Comments Records Request Encounter Details Date Type Department Care Team Description 06/19/2017 Telephone [facility] - Alaina Holloway MD Records Request Rehabilitation Medicine [address] [place] [address] MED [phone] [place] [address] Social History Tobacco Use Types [...] Telephone Encounter - Merly Sales MA - 06/19/2017 10:10 AM CDT Per pt request last 3 notes from when the pt was admitted sent over by fax to [phone]. in this encounter Plan of Treatment Not on fileas of this encounter Visit Diagnoses Not on filein this encounter
--- OUTSIDE RECORDS SUMMARY | 2017-07-24 15:01 | XMS REPORT | Encounter Summary ---
Author Author [facility] Organization [facility] Address Unknown Phone Unavailable Care Team Providers Care Liquid Natural Gas Plant Operator Name Role Phone No Pcp, Na PCP Unavailable Encounter Details Date Type Department Care Team Description 07/03/2017 Hosp [facility] Lucina Donnelly, community development manager [address] [place] [address] Social History Tobacco Use Types Packs/Day Years [...] impairment: Yes 03/28/2017 as of this encounter Progress Notes * Lucina Donnelly, CHARLIE - 07/03/2017 10:40 AM CDT 3 month follow up phone call completed with patient who reports that he has been attending day program at [facility] 3 days a week, planning to transition to outpatient therapy close to home in July. Patient is ambulating with a cane in last few weeks and doesn't need a wheelchair for mobility now. He has some return in his shoulder muscle of left arm, no use of left hand. His sets up his medications. He wore an event monitor but isn't sure whether he needs further cardiac rhythm assessment. Emailed Dr Santana/Pelon to inquire about further cardiac workup and medication frequency for gabapentin/baclofen. Reviewed stroke education. Estimated mRS of 3. in this encounter Plan of Treatment Not on fileas of this encounter Visit Diagnoses Not on filein this encounter
--- OUTSIDE RECORDS SUMMARY | 2017-07-24 15:01 | XMS REPORT | Encounter Summary ---
Author Author [facility] Organization [facility] Address Unknown Phone Unavailable Care Team Providers Care District Court Justice Name Role Phone No Pcp, Na PCP Unavailable Reason for Visit * Reason Comments Referral Encounter Details Date Type Department Care Team Description 07/09/2017 Telephone [facility] Shruthi Santana MD Referral Physicians-Neurology [address] [facility] [address] [place] [address] [place], [place] [phone] Social History Tobacco Use Types Packs/Day Years [...]
--- OUTSIDE RECORDS SUMMARY | 2017-07-24 15:01 | XMS REPORT | Encounter Summary ---
Author Author [facility] Organization [facility] Address Unknown Phone Unavailable Care Team Providers Care Historian Research Assistant Name Role Phone No Pcp, Na PCP Unavailable Encounter Details Date Type Department Care Team Description 07/03/2017 Hosp Medical Telemetry Lucina Donnelly RN Documentation [address] [place] [address] Social History Tobacco Use Types Packs/Day Years [...]
--- OUTSIDE RECORDS SUMMARY | 2017-07-24 15:01 | XMS REPORT | Encounter Summary ---
Author Author [facility] Organization [facility] Address Unknown Phone Unavailable Care Team Providers Care Disk Recoater Name Role Phone No Pcp, Na PCP Unavailable Reason for Visit * Reason Comments Heme/Onc Care New Patient * Consult, Test & Treat (Routine) Status Reason Specialty Diagnoses / Referred By Referred To Procedures Contact Contact New Request Internal Medicine Diagnoses Isaias Martino, / Oncology PAY, Dx: Melodie Peterson MD Hypercoag [employer] [address], [address] Referral: [address] [place] [address] [place], [address] Phone: Insurance: [facility] PPO EILEEN Scott [phone] P Fax: rocedures [phone] -NEW PATIENT Encounter Details Date Type Department Care Team Description 05/15/2017 Office Visit [facility] Melodie Esparza MD [facility] Exam [address] (CVA) due to thrombosis [address] [place] [address] [place] [address] artery (HCC); [phone] History of DVT (deep vein thrombosis) Social History Tobacco Use Types Packs/Day Years Used Date Never Smoker Smokeless Tobacco: Never Used Alcohol Use Drinks/Week oz/Week Comments No Sex Assigned at Date Recorded Not on file as of this encounter Last Filed Vital Signs Vital Sign Reading Time Taken Blood Pressure 136/82 05/15/2017 2:37 PM DIRECTOR OF ENTERTAINMENT Pulse 62 05/15/2017 2:37 PM DIRECTOR OF ENTERTAINMENT Temperature 36.9 C (98.5 F) 05/15/2017 2:37 PM DIRECTOR OF ENTERTAINMENT Respiratory Rate 20 05/15/2017 2:37 PM DIRECTOR OF ENTERTAINMENT Oxygen Saturation - - Inhaled Oxygen - - Concentration Weight - - Height 188 cm (6' 2") 05/15/2017 2:37 PM DIRECTOR OF ENTERTAINMENT Body Mass Index - - in this encounter Functional Status Functional Status [...] this encounter Instructions * Patient Instructions - Sil Johnson RN - 05/15/2017 2:40 PM DIRECTOR OF ENTERTAINMENT We understand that your time is important and want your visit to be as timely as possible. In order for your appointments to occur as closely as possible to the scheduled time, please review the following additional instructions. ? Please arrive 15 minutes prior to your first scheduled appointment time to complete the registration process. ? Bring your photo ID and insurance card with you to check in o If your first appointment is with lab (blood draw) or with your provider, check in on the second floor (Main level). o If your appointment is for lab (blood draw) only, check in on the third floor. in this encounter Progress Notes * Melodie Esparza MD - 05/15/2017 2:40 PM DIRECTOR OF ENTERTAINMENT Formatting of this note may be different from the original. Name: Thomas Osei : 1975 AGE: 41 y.o. DATE OF SERVICE: 05/15/2017 Subjective: Reason for Visit: Follow up stroke and thrombophilia workup Heme/Onc Care and New Patient Thomas Osei is a 41 y.o. male. No matching staging information was found for the patient. Mr. Osei is a 41 year old male with past medical history of remote provoked DVT LE after trauma to his leg. He was seen initially during 03/28 - hospitalization for development of a large right sided MCA stroke. It is unclear why this happened and patient had hemorrhagic conversion. He went to [facility] rehab afterwards and has had some improvement but still marked left sided weakness. He also has some left cheek and tongue numbness. Denies fever, chills , nausea or vomiting. He has no other symptoms today. He is here with his . Review of Systems HENT: Negative. Respiratory: Negative. Cardiovascular: Negative. Gastrointestinal: Negative. Genitourinary: Negative. Musculoskeletal: Negative. Skin: Negative. Neurological: Positive for weakness and numbness. Hematological: Negative. Psychiatric/Behavioral: Negative. Objective: aspirin 325 mg tablet Take 1 [...] by mouth at bedtime as needed. Vitals: 05/15/17 1437 BP: 136/82 Pulse: 62 Resp: 20 Temp: 36.9 C (98.5 F) Height: 188 cm (74") There is no height or weight on file to calculate BMI. Pain Score: Zero Pain Addressed: N/A Patient Evaluated for a Clinical Trial: Patient not eligible for a treatment trial (including not needing treatment, needs palliative care, in remission). Eastern Cooperative Oncology Group performance status is 0, Fully active, able to carry on all pre-disease performance without restriction.. Physical Exam Constitutional: He is oriented to person, place, and time. He appears well- developed and well-nourished. HENT: Head: Normocephalic and atraumatic. Eyes: EOM are normal. Pupils are equal, round, and reactive to light. Neck: Normal range of motion. Neck supple. Cardiovascular: Normal rate and regular rhythm. No murmur heard. Pulmonary/Chest: Effort normal and breath sounds normal. No respiratory distress. He has no wheezes. Abdominal: Soft. Bowel sounds are normal. He exhibits no distension. Musculoskeletal: Normal range of motion. He exhibits no edema. Neurological: He is alert and oriented to person, place, and time. Left sided UE 0/5 weakness and LE 1-2/5 weakness. Left cheek numbness. Some delayed speech. Skin: Skin is warm and dry. No erythema. Psychiatric: He has a normal mood and affect. 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 Therefore he does not have an indication for therapeutic anticoagulation and should be continued on aspirin therapy. He can follow up with us on a PRN basis. Patient seen and discussed with Dr. Esparza. ATTESTATION I personally performed the lima portions of the E/M visit, discussed case with resident and concur with resident documentation of history, physical exam, assessment, and treatment plan unless otherwise noted. Staff name: Melodie sEparza MD Date: 05/15/2017 in this encounter Miscellaneous Notes * Assessment & Plan Note - Krzysztof Hurtado DO - 05/15/2017 4:09 PM DIRECTOR OF ENTERTAINMENT Associated Problem(s): History of DVT (deep vein thrombosis) While he had an extensive acute CVA thrombophilia workup is negative. Therefore he does not have an indication for therapeutic anticoagulation and should be continued on aspirin therapy. He can follow up with us on a PRN basis. Patient seen and discussed with Dr. Esparza. in this encounter Plan of Treatment Not on fileas of this encounter Visit Diagnoses Diagnosis Cerebrovascular accident (CVA) due to thrombosis of right middle cerebral artery (HCC) History of DVT (deep vein thrombosis) Personal history of venous thrombosis and embolism
--- OUTSIDE RECORDS SUMMARY | 2017-07-24 15:04 | XMS REPORT | Encounter Summary ---
Author Author [facility] Organization [facility] Address Unknown Phone Unavailable Care Team Providers Care Fuel Injection Servicer Name Role Phone No Pcp, Na PCP Unavailable Reason for Visit * Auth/Cert Status Reason Specialty Diagnoses / Referred By Referred To Procedures Contact Contact Diagnoses STORKE Stroke (HCC) Encounter Details Date Type Department Care Team Description 03/28/2017 Hospital R ACUTE REHAB UNIT Geovanny Holloway MD Cerebrovascular accident - Encounter [address] (CVA) due to thrombosis 05/01/2017 [place] [address] of right middle cerebral [phone] artery (HCC) Social History Tobacco Use Types Packs/Day Years Used Date Never Smoker Smokeless Tobacco: Never Used Alcohol Use Drinks/Week oz/Week Comments No Sex Assigned at Date Recorded Not on file as of this encounter Last Filed Vital Signs Vital Sign Reading Time Taken Blood Pressure 144/89 05/01/2017 6:32 AM 3D MODELER Pulse 99 05/01/2017 6:32 AM 3D MODELER Temperature 36.6 C (97.9 F) 05/01/2017 6:32 AM 3D MODELER Respiratory Rate - - Oxygen Saturation 97% 05/01/2017 6:32 AM 3D MODELER Inhaled Oxygen - - Concentration Weight 77.6 kg (171 lb) 04/29/2017 6:00 AM 3D MODELER Height 188 cm (6' 2.02") 03/28/2017 3:28 PM 3D MODELER Body Mass Index 21.95 04/29/2017 6:00 AM 3D MODELER in this encounter Functional Status Functional Status [...] impairment: Yes 03/28/2017 as of this encounter Discharge Summaries * Brielle Rowe - 05/01/2017 11:15 AM 3D MODELER Formatting of this note may be different from the original. ATTESTATION: I have reviewed the discharge summary and agree with the resident's documentation. The patient was seen on the date of discharge and remained stable for discharge. The patient discharged home with assistance from family. Follow up instructions including appointments were provided and prescriptions were provided. Patient and/or family understands signs to look out for that would require to call a doctor(s) and/or call 911. 41 y.o. 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 Patient met overall goal of min assist with at household level by time of rehab discharge. Discharge to home with ongoing outpatient PT/OT/NURSING CARE PARTNER. Patient knows to follow up as detailed below. Patient knows not to drive or return to work until cleared by outpatient physicians. Family training was completed prior to discharge. Staff name: Geovanny Holloway MD Physician Discharge Summary Name: Thomas Osei Date Of : 1975 Age: 41 years Admit date: 03/28/2017 Discharge date: 05/01/2017 Attending Physician: Service: Rehab Medicine Physician Summary completed by: Luigi Galicia DO Reason for hospitalization: R MCA CVA Significant PMH: Past Medical History: Diagnosis Date DVT (deep venous thrombosis) (HCC) following traumatic leg fracture. completed 3 month course of warfarin Allergies: Patient has no known allergies. Admission Physical Exam notable for: Gen: Alert & Oriented X 3, No Acute Distress HEENT: NCAT, PERRL, MMM, L neglect Heart: Regular Rate & Rhythm, no m/g/r Lungs: Clear to auscultation bilaterally, no w/r/r Abdomen: Soft, non-tender, non-distended, +BS : no [place] Skin: no rashes or lesions present Ext: no c/c/e MS: Root Right Left Shoulder Abduction C5 5 0 Elbow Flexion C5 5 0 Elbow Extension C7 5 0 Wrist Extension C6 5 0 Finger Flexion C8 5 0 Finger Abduction T1 5 0 Hip Flexion L2 5 0 Knee Flexion L5/S1 5 0 Knee Extension L3 5 0 Dorsiflexion L4 5 0 Plantarflexion S1 5 0 Neuro: Cranial Nerves Left facial droop, left sided neglect [place] Normal on right Finger to Nose Normal on right Rapid Alternating Movements Normal on right Upper Extremity Tone Normal on BUE Lower Extremity Tone Normal on BLE Upper Extremity Sensation Intact to light touch on right, mildly decreased on left Lower Extremity Sensation Intact to light touch on right, mildly decreased on left Clonus Negative Bilaterally Memory/Cognition/Speech oriented x 3. Dysarthric speech. Some answers not entirely appropriate. Cognition appears poor. Admission Lab/Radiology studies notable for: Basic Metabolic Profile Lab Results Component Value Date/Time NA 133 (L) 03/28/2017 01:45 PM K 3.8 03/28/2017 05:10 AM CA 9.1 03/28/2017 05:10 AM CL 101 03/28/2017 05:10 AM CO2 26 03/28/2017 05:10 AM Lab Results Component Value Date/Time BUN 19 03/28/2017 05:10 AM CR 0.91 03/28/2017 05:10 AM GLU 114 (H) 03/28/2017 05:10 AM CBC w/Diff Lab Results Component Value Date/Time WBC 18.0 (H) 03/28/2017 05:10 AM RBC 5.00 03/28/2017 05:10 AM HGB 16.0 03/28/2017 05:10 AM HCT 45.5 03/28/2017 05:10 AM MCV 91.0 03/28/2017 05:10 AM MCH 32.0 03/28/2017 05:10 AM RDW 13.2 03/28/2017 05:10 AM PLTCT 239 03/28/2017 05:10 AM MPV 8.4 03/28/2017 05:10 AM Lab Results Component Value Date/Time NEUT 83 (H) 03/28/2017 05:10 AM ANC 14.80 (H) 03/28/2017 05:10 AM LYMA 8 (L) 03/28/2017 05:10 AM ALC 1.50 03/28/2017 05:10 AM IKE 9 03/28/2017 05:10 AM AMC 1.70 (H) 03/28/2017 05:10 AM EOSA 0 03/28/2017 05:10 AM AEC 0.00 03/28/2017 05:10 AM BASA 0 03/28/2017 05:10 AM ABC 0.00 03/28/2017 05:10 AM Brief Hospital Course: The patient was admitted and the following issues were addressed during this hospitalization: (with pertinent details). is a 41 y/o male who was admitted to [facility] after suffering R MCA stroke. Pt continued to make progress in therapies during his stay. Pt gained some function of his left upper and lower extremities prior to discharge. Pt had significant L sided spasms and eventually baclofen was titrated to 20mg TID. Their was some concern for regression in therapies around time of discharge CT head and UA were unremarkable for acute pathology. He was discharge home with the below functional assistance required and plans for ongoing outpatient therapies. Evaluation FIMS Current FIMS Eating FIM: 7 - Complete independence Grooming FIM: 4 - Minimal contact assistance, patient performs 75% or more of grooming/bathing/dressing/toileting tasks Bathing FIM: 1 - Total assistance, requires 2 staff to assist Dressing - Upper Body FIM: 2 - Maximal assistance, patient performs 25-49% of grooming/bathing/dressing/toileting tasks Dressing - Lower Body FIM: 1 - Total assistance, patient performs less than 25% of grooming/bathing/dressing/toileting tasks Toileting FIM: 1 - Total assistance, patient performs less than 25% of grooming/ bathing/dressing/toileting tasks Bladder FIM: 3 - Moderate assistance to maintain an external device Bowel FIM: 4 - Administering enema Transfers FIM: 1 - Total assistance, two or more people Toilet Transfers FIM: 1 - Total assistance, two or more people Shower Transfers FIM: 1 - Total assistance, two or more people Gait: 1 - Toal assistance, two or more people, < 50 feet Wheelchair FIM: 0 - Activity did not occur - Other (comment) Stairs FIM: 0 - Activity did not occur - Unable due to motor control Comprehension FIM: 6 - Modified independence - only mild difficulty understaing complex/abstract information, no prompting required Expression FIM: 6 - Modified independence - Able to express abstract information , mild difficulty but no prompting Social Interaction FIM: 6 - Modified independence - Able to interact in most situations and no prompting required Problem Solving FIM: 6 - Modified independence - Able to recognize problems with only mild difficulty, makes appropriate decisions, initiates and carries out a sequence of steps to solve complex problems, no prompting Memory FIM: 4 - Minimal prompting - Able to recognize people frequently encountered, remembers daily routines, responds to requests of others 50-74% of the time, needs promting less than half of the time Eating FIM: 6 - Modified independence - Extra Time (3 times normal) Grooming FIM: 6 - Modified independence - Extra Time (3 times normal) Bathing FIM: 4 - Minimal contact assistance, patient performs 75% or more of grooming/bathing/dressing/toileting tasks Dressing - Upper Body FIM: 6 - Modified independence - Extra Time (3 times normal) Dressing - Lower Body FIM: 6 - Modified independence - Extra Time (3 times normal) Toileting FIM: 6 - Modified independence - Safety Concern Bladder FIM: 5 - Supervision Bowel FIM: 6 - No bowel movement, medication Transfers FIM: 4 - Minimal assistance, patient performs 75% or more of transferring tasks Toilet Transfers FIM: 4 - Minimal assistance, patient performs 75% or more of transferring tasks Shower Transfers FIM: 3 - Moderate assistance, patient performs 50-74% of transferring tasks (lifting required) Gait: 4 - Minimal contact assistance, patient expends 75% or more effort, greater than or equal to 150 feet Wheelchair FIM: 6 - Modified independence - Wheelchair, greater than or equal to 150 feet Stairs FIM: 4 - Minimal assistance, patient expends 75% or more effort Comprehension FIM: 6 - Modified independence - only mild difficulty understaing complex/abstract information, no prompting required Expression FIM: 6 - Modified independence - Able to express abstract information , mild difficulty but no prompting Social Interaction FIM: 5 - Supervision required - Able to interact appropriately >90% of the time, prompting <10% Problem Solving FIM: 5 - Standby prompting - Able to recognize problems, make appropriate decisions, initiates and carries out a sequence of steps to solve routine problems >90% of the time, prompting <10% Memory FIM: 4 - Minimal prompting - Able to recognize people frequently encountered, remembers daily routines, responds to requests of others 50-74% of the time, needs promting less than half of the time Physical Therapy Current Recommendations/Plan/Goals Plan PT Plan: Balance/vestibular training, Bed mobility training, Body weight support , E-stim, Family / caregiver training, Gait training, Home program, Neuromuscular re-education, Soft tissue mobilization, Stair training, Therapeutic exercise, Transfer training, Wheelchair mobility Comments: facilitation of hamstring contraction, gait, reciprocal stairs for neuro re-ed, repeat sit to stands with forced LLE use, LLE forced use activities , standing balance, 4- point, tall kneeling, pivot transfers, pilates reformer Recommendations PT Discharge Recommendations: Home with Assistance, Day program Equipment Recommendations: Wheelchair cushion, Wheelchair - Manual Expected Discharge Date: 05/01/17 Weekly Goals Weekly Bed Mobility Goals: Patient will perform sit to supine with, Patient will perform supine to sit with Patient will perform sit to supine with: Modified independent, Achieved Patient will perform supine to sit with: Modified independent, Achieved Weekly Transfer Goals: Patient will complete sit to stand transfer with, Patient will complete stand to sit transfer with, Patient will complete stand pivot transfer with Patient will complete sit to stand transfer with: Stand by assistance, Adequate for discharge Patient will complete stand to sit transfer with: Stand by assistance, Adequate for discharge Patient will complete stand pivot transfer with: Minimum assistance, Achieved Weekly Ambulation/Stairs Goals: Patient will ambulate, Patient will ascend/ descend Patient will ambulate: 50 feet, Moderate assistance, Achieved Patient will ascend/descend: 2 stairs, Moderate assistance, No rail, Adequate for discharge Patient will propel manual wheelchair on level surfaces with: Modified Williams, Achieved Goal(s) for the Stay Patient will perform: household mobility, at wheelchair level, Minimum assistance, With caregiver assistance, Achieved Occupational Therapy Current Recommendations/Plan/Goals Recommendations OT Discharge Recommendations: Day program, To address deficits, maximize function and improve safety. OT Equipment Recommendations: Patient owns necessary equipment Expected Discharge Date: 05/01/17 Recommendations OT Discharge Recommendations: Day program, To address deficits, maximize function and improve safety. OT Equipment Recommendations: Patient owns necessary equipment Expected Discharge Date: 05/01/17 ADL Goals: Dressing UE, Dressing LE, Grooming, Eating Goals for the stay Pt will perform basic care and transfer with: Stand by assistance, Wheelchair level, Adequate for discharge Condition at Discharge: Stable Discharge Diagnoses: Problem List Active Problems * (Principal)Cerebrovascular accident (CVA) due to thrombosis of right middle cerebral artery (HCC) Stroke (cerebrum) (HCC) Left hemiparesis (HCC) Left-sided neglect Impaired mobility and ADLs Resolved Problems RESOLVED: Clonus RESOLVED: Oropharyngeal dysphagia RESOLVED: Hypokalemia RESOLVED: Cerebral edema (HCC) RESOLVED: UTI (urinary tract infection) RESOLVED: Urinary retention RESOLVED: Hyponatremia Surgical Procedures: None Significant Diagnostic Studies and Procedures: noted in brief hospital course Consults: None Patient Disposition: Home Patient instructions/medications: Activity as Tolerated It is important to keep increasing your activity level after you leave the hospital. Moving around can help prevent blood clots, lung infection (pneumonia ) and other problems. Gradually increasing the number of times you are up moving around will help you return to your normal activity level more quickly. Continue to increase the number of times you are up to the chair and walking daily to return to your normal activity level. Begin to work toward your normal activity level at discharge Report These Signs and Symptoms Please contact your doctor if you have any of the following symptoms: temperature higher than 100 degrees F, uncontrolled pain, persistent nausea and/ or vomiting, difficulty breathing, chest pain, severe abdominal pain or headache Questions About Your Stay For questions or concerns regarding your hospital stay. Call [phone] Discharging attending physician: GEOVANNY HOLLOWAY V [[id number]] Regular Diet You have no dietary restriction. Please continue with a healthy balanced diet. Current Discharge Medication List START taking these medications Details gabapentin (NEURONTIN) 300 mg capsule Take 1 capsule by mouth at bedtime daily. Qty: 30 capsule, Refills: 1 PRESCRIPTION TYPE: Normal This prescription was faxed to the pharmacy Pharmacy: [facility] [address] AT [address] [place] [address] (Ph #: [phone]) melatonin 5 mg tab Take 1 tablet by mouth at bedtime daily. Qty: 60 each, Refills: 3 PRESCRIPTION TYPE: Normal This prescription was faxed to the pharmacy Pharmacy: [facility] [address] AT [address] [place] [address] (Ph #: [phone]) methocarbamol (ROBAXIN) 750 mg tablet Take 1 tablet by mouth three times daily as needed for Spasms. Qty: 60 tablet, Refills: 3 PRESCRIPTION TYPE: Normal This prescription was faxed to the pharmacy Pharmacy: [address] AT [address] [place] [address] & [facility] (Ph #: [phone]) traZODone (DESYREL) 50 mg tablet Take 1 tablet by mouth at bedtime as needed. Qty: 90 tablet, Refills: 3 PRESCRIPTION TYPE: Normal This prescription was faxed to the pharmacy Pharmacy: [address] AT [address] [place] [address] & [facility] (Ph #: [phone]) CONTINUE these medications which have been CHANGED or REFILLED Details atorvastatin (LIPITOR) 40 mg tablet Take 1 tablet by mouth daily. Qty: 30 tablet, Refills: 1 PRESCRIPTION TYPE: Normal This prescription was faxed to the pharmacy Pharmacy: [address] AT [address] [place] [address] & [facility] (Ph #: [phone]) baclofen (LIORESAL) 20 mg tablet Take 1 tablet by mouth three times daily. Qty: 90 tablet, Refills: 1 PRESCRIPTION TYPE: Normal This prescription was faxed to the pharmacy Pharmacy: [address] AT [address] [place] [address] & [facility] (Ph #: [phone]) fluoxetine (PROZAC) 20 mg capsule Take 1 capsule by mouth daily. Qty: 30 capsule, Refills: 1 PRESCRIPTION TYPE: Normal This prescription was faxed to the pharmacy Pharmacy: [facility] [address] AT [address] [place] [address] & [facility] (Ph #: [phone]) pantoprazole DR (PROTONIX) 40 mg tablet Take 1 tablet by mouth daily. Qty: 30 tablet, Refills: 1 PRESCRIPTION TYPE: Normal This prescription was faxed to the pharmacy Pharmacy: [facility] [address] AT [address] [place] [address] & [facility] (Ph #: [phone]) CONTINUE these medications which have NOT CHANGED Details aspirin 325 mg tablet Take 1 tablet by mouth daily. Take with food. PRESCRIPTION TYPE: No Print docusate (COLACE) 100 mg capsule Take 1 capsule by mouth twice daily. Qty: 180 capsule, Refills: 3 PRESCRIPTION TYPE: No Print senna (SENOKOT) 8.6 mg tablet Take 1 tablet by mouth twice daily. Qty: 90 tablet, Refills: 3 PRESCRIPTION TYPE: No Print The following medications were removed from your list. This list includes medications discontinued this stay and those removed from your prior med list in our system bisacodyl (DULCOLAX) 10 mg rectal suppository doxazosin (CARDURA) 2 mg tablet fosfomycin tromethamine 3 gram packet lidocaine (LIDODERM) 5 % topical patch milk of magnesia (CONC) 2,400 mg/10 mL oral suspension naproxen (NAPROSYN) 250 mg tablet sodium chloride(#) inj for po 4 mEq/mL Scheduled appointments: May 15, 2017 2:40 PM 3D MODELER (Arrive by 2:25 PM) New Patient with Melodie Esparza MD [facility] Exam (CC Exam) [address] [facility] [id number] May 23, 2017 1:30 PM 3D MODELER Return Patient with Shruthi Santana MD [facility] ([facility] Neurology) [facility] [address] [facility] [phone] Jun 11, 2017 8:15 AM 3D MODELER Clinical Support with Oly Michaels MS [facility] ([facility] Psychiatry) 6th Floor Pod [address] [facility] Med Office [facility] [phone] Jul 29, 2017 1:30 PM CDT Return Patient with Geovanny Pierre MD [facility] - Rehabilitation Medicine ([facility] Rehab Medicine) 2nd Floor Pod [address] [facility] Med Office [facility] [phone] Pending items needing follow up: Signed: Luigi Galicia DO 05/03/2017 cc: Primary Care Physician: Na No PCP Verified Referring physicians: Self, Referral Additional provider(s): in this encounter Discharge Instructions * Rehab Team Tray Line Supervisor/Case Management Support/Ongoing Services/DME - MalgorzataaugustoLesa hung - 04/02/2017 9:05 AM 3D MODELER Pt will begin Ability [place] on 05/01/17 a few times a week. will provide consistent supervision to pt at home.Family has obtained needed dme and ramp. Type of Residence: Home, independent Living Arrangements: Spouse/significant other, Children (Pt lives with Dasia and their 2 dgts both 9.) Bathroom Shower / Tub: Tub/Shower Unit, Walk-in Shower (Pt will use tub/shower as walk in shower is very small.) Bathroom Toilet: Standard Bathroom Accessibility: Accessible via Walker (Pt's weber bath with tub/shower is rw accessible, however master fiber optic technician bath is not rw accessible, however will need to use at night for toileting.) How many levels in the residence?: 2 (Pt has 2 steps to enter home and 1 step to master fiber optic technician. Pt would like to climb 12 steps to reach dgt's fiber optic technician with bannister half way and no rail further.) Can patient live on one level if needed?: No (Pt has 1 step to fiber optic technician.) Support Systems: Spouse/Partner ( Dasia is primary support and she reports she can take some time off and do some network director upon initial dc. 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 Malcolm Childers in [place], [place] . DME DME at home: None Home Health Receiving home health: No * Rehab Team Physician - Luigi Galicia DO - 04/02/2017 8:21 AM 3D MODELER Dx: R MCA stroke Deficits: Left hemiplegia, Left neglect, Left facial droop, spasticity, cognitive impairment - Stroke: Unsure of cause. Cont ASA, atorvastatin, fluoxetine - Spasticity/spasms/neuropathic pain: baclofen 20mg TID, gabapentin 300mg qhs. - UTI: Completed Abx 04/04 - Urinary retention: tapered off doxazosin, no signs of retention - Hyponatremia: tapered off salt tabs - TMJ pain - stable, may need f/u with his dentist * Rehab Team Weekly Goals - Kirstin Balbuena - 03/31/2017 3:34 PM 3D MODELER Encourage attention/scanning to left side Proper positioning of LUE/LLE in chair/bed, please follow mally positioning sheet Encourage pt to perform dressing, grooming tasks Encourage pt to participate in all toileting tasks * Rehab Team PT Barriers and Concerns - Kirstin Balbuena - 03/31/2017 3:32 PM 3D MODELER Moderate burden of care for ADLs and related transfers Decreased initiation with transfers, has taken over 40 minutes to initiate 1 transfer from bed to wheelchair. Reports he will be alone at times while spouse is at work Continues to require assist for toileting, LE dressing tasks and tasks in standing Patient just informed therapists that bathroom door width is not wide enough for his wheelchair * Rehab Team PT Progression - Kirstin Balbuena - 03/31/2017 3:31 PM 3D MODELER Upper body dressing progressing to SBA/Megan (varied consistency with task); tavo good understanding of mally-dressing technique Improved visual scanning/attention to L side Stand pivot transfer with minimal assistance x1 Squat pivot transfer with standby assist x1 R biceps, adductors, internal rotation and grasp activation noted LLE muscle activation with closed chain and open chain activities Wheelchair propulsion is modified independent Continued family training for transfers/self-care tasks in standing, with pt progressing to Megan with caregiver assist Improved ease with toileting/toilet transfers with use of BSC placed over existing toilet to increase height and provide armrest support * Rehab Team DC Planning - Danielle Whitehead OT - 03/31/2017 12:58 PM 3D MODELER Plan Home with family assist and Day Program OT/PT/ST vs outpatient therapies if unable to secure housing in [place] area DME Manual wheelchair with cushion (eval completed), tub transfer bench, grab bars, BSC * Rehab Team Speech Therapy Progression - Joyce Trivedi MA - 03/31/2017 12:11 PM 3D MODELER Patient is aware of his deficits and understands left hemisphere dysfunction. When tasks are broken down into short segments and breaks are provided, performance notes mild improvement. * Rehab Team Speech Therapy Barriers and Concerns - Joyce Trivedi MA - 2016 12:10 PM 3D MODELER Reduced initiation and poor sustained attention impacts performance on cognitive tasks. Patient becomes frustrated easily when attention impacts his ability to perform simple tasks (such as simple single digit addition and subtraction). in this encounter Medications at Time of Discharge [...] capsule by mouth 30 capsule 1 2017 300 mg capsule at bedtime daily. [...] bedtime as needed. as of this encounter Progress Notes * Luigi Galicia DO - 05/01/2017 9:43 AM 3D MODELER Formatting of this note may be different from the original. Physical Medicine & Rehabilitation Progress Note Today's Date: 05/01/2017 Admission Date: 03/28/2017 LOS: 34 days Principal Problem: Cerebrovascular accident (CVA) due to thrombosis of right middle cerebral artery (HCC) Active Problems: Left hemiparesis (HCC) Left-sided neglect Impaired mobility and ADLs Assessment/Plan: Thomas Osei is a 41 y.o. male admitted to [facility] on 03/28/2017 with the following issues: stroke Rehabilitation Plan Rehabilitation Diagnosis: ischemic stroke Current Therapy: PT, OT, ST, neuropsych Goals: home; min-A Tentative discharge date: 05/01/17 Discharge Therapy: Day Program/Outpatient PT/OT DME: Manual wheelchair with cushion (eval completed), tub transfer bench, grab bars. -Due to patients functional limitations they require a manual wheelchair for independent mobility in the home. A therapy evaluation was completed during their inpatient rehab stay to assess the most appropriate wheelchair for the patient. He will be able to propel an ultralightweight wheelchair and cannot independently propel a standard wheelchair. Daily Functional Update: Transfers Device Sit to Stand Transfer: Assistive Device: None (04/28/2017 2:00 PM) No Data Recorded Gait Device Assist Required Distance Gait: Assistive Device: Quad Cane (R ankle wrapped for dorsiflexion) (04/30/2017 2:00 PM) No Data Recorded Gait Distance: 175 feet (04/30/2017 2:00 PM) Toileting Assist Required Equipment Toilet Transfer Toileting Assist: Minimal Assist (04/30/2017 7:00 AM) Toileting Equipment: Commode - bedside (04/22/2017 9:00 AM) Toilet Transfer Assist: Moderate assist (04/30/2017 7:00 AM) Dressing Lower Body LE Dressing Assist: Minimal Assist (04/30/2017 7:00 AM) Cognition - 04/25 Patient did not need cues to scan information to the left side of the page. Patient completed both pages by orally reading text and required x5 cues when he missed a sentence or was unable to resume reading information where he left of during discussion. Patient identified top 3 characteristics of RH injury as vision/vision neglect, difficulty with memory and learning and reasoning skills. Right MCA CVA (M2 occlusion) - cryptogenic, as per workup so far - ongoing left upper and lower extremity paresis, left facial droop, dysarthria , left neglect - LDL 118 - HbA1c- 5.2 - ECHO (TTE) - EF 55%, mild hypokinesis of basal to mid anteroseptal ji, normal atria size, no PFO - Hypercoagulable workup so far: Cardiolipin IgG :13, Cardiolipin IgM :13, Activated Protein C Resistance: 2.6, Factor 2 Mutation : negative, Negative immunophenotypic study, no evidence of paroxysmal nocturnal hemoglobinuria, BCR/ ABL1 normal - NICKO- no evidence of interarterial shunting. No thrombus. Plan: > ASA 325mg Qday > Atorvastatin 40mg Qday > Fluoxetine 20mgQday for motor recovery > Hematology follow up (Dr. Esparza 05/15/17) > Neurology stroke clinic follow up (05/23/17) > Rehab f/u with 07/29/17 Left sided hemiplegia Left neglect Impaired mobility and ADLs - PT/OT - on fluoxetine for motor recovery after stroke Regression in therapies -Therapy team concerned for regression in therapies during team meeting 04/30 -CT head 04/30 w/o evidence of acute pathology -UA w/o evidence of infection Muscle spasms Spasticity LLE shooting pain - baclofen 20mg TID - gabapentin 300mg qhs -Robaxin PRN Cognitive impairment - NURSING CARE PARTNER cognitive remediation Back Pain - acute on chronic > Lidocaine patches Pain Management: Scheduled tylenol 1g TID. Oxycodone, lidocaine, robaxin PRN . Skin: There are no pressure sores currently. Bowel: continent of bowel, constipated, may need enema today Bladder: continent of bladder, most recent BVIs without concern for urinary retention Nutrition: Current diet: regular Mental Health: consult neuropsychology to provide support / counseling DVT Prophylaxis: Regulo Galicia DO Pager [phone] Subjective No events overnight Pt in WC in room when seen this am. Pt eager to be d/c today and will be going straight to [facility] CT head an UA yesterday both negative. Pt had no concerns when seen. Pain well controlled. Objective Vital Signs: Last Filed Vital Signs: 24 Hour Range BP: 144/89 (05/01 631) Temp: 36.6 C (97.9 F) (05/01 631) Pulse: 99 (05/01 631) Respirations: 18 PER MINUTE (05/01 631) SpO2: 97 % (05/01 631) O2 Delivery: None (Room Air) (05/01 631) BP: (127-144)/(82-89) Temp: [36.6 C (97.8 F)-36.6 C (97.9 F)] Pulse: [68-99] Respirations: [16 PER MINUTE-18 PER MINUTE] SpO2: [97 %-98 %] O2 Delivery: None (Room Air) Vitals: 04/22/17 0606 04/23/17 0547 04/29/17 0600 Weight: 72.8 kg (160 lb 7.9 oz) 73.1 kg (161 lb 2.5 oz) 77.6 kg (171 lb) Intake/Output Summary: (Last 24 hours) Intake/Output Summary (Last 24 hours) at 05/01/17 0943 Last data filed at 04/30/17 1300 Gross per 24 hour Intake 240 ml Output 0 ml Net 240 ml Stool Occurrence: 1 Oral Diet Order: Regular Last BM Date: 04/29/17 Lab: Results for orders placed or performed during the hospital encounter of (from the past 24 hour(s)) URINALYSIS DIPSTICK REFLEX TO CULTURE Collection Time: 04/30/17 5:45 PM # # Low-High Color,UA YELLOW Turbidity,UA CLEAR CLEAR-CLEAR Specific Bradley-Urine 1.019 1.003 - 1.035 pH,UA 6.0 5.0 - 8.0 Protein,UA NEG NEG-NEG Glucose,UA NEG NEG-NEG Ketones,UA NEG NEG-NEG Bilirubin,UA NEG NEG-NEG Blood,UA NEG NEG-NEG Urobilinogen,UA NORMAL NORM-NORMAL Nitrite,UA NEG NEG-NEG Leukocytes,UA NEG NEG-NEG Urine Ascorbic Acid, UA NEG NEG-NEG URINALYSIS MICROSCOPIC REFLEX TO CULTURE Collection Time: 04/30/17 5:45 PM # # Low-High WBCs,UA 0-2 0 - 2 /HPF RBCs,UA 0-2 0 - 3 /HPF Comment,UA Urine submitted for reflex culture if criteria are met:WBC>10, positive nitrite and/or >=1+ leukocyte esterase. If quantity is not sufficient, an addendum will follow. Hyaline Cast 0-2 Physical Exam VS: BP 144/89 (BP Source: Arm, Right) | Pulse 99 | Temp 36.6 C (97.9 F) | Ht 188 cm (74.02") | Wt 77.6 kg (171 lb) | SpO2 97% | BMI 21.95 kg/m2 General: Patient appears stated age, in no acute distress HEENT: Normocephalic, atraumatic Neck: full AROM with improving right gaze preference Cardiovascular: Well perfused Pulmonary: Unlabored respirations Extremities: No cyanosis, clubbing, or edema Skin: Warm and dry Psychiatric: Appropriate mood and affect Musculoskeletal: No atrophy Neurologic: Mental Status: alert Cognition: normal processing speed for casual conversation Speech: mildly dysarthric but clear Cranial Nerves: L facial droop, L neglect improving - no cues to attend left Motor: Right sided strength 5/5, Extensor thrust present LLE Therapy Notes & Labs Reviewed. Luigi Galicia DO [id number] Associated attestation - Geovanny Holloway MD - 05/01/2017 9:34 PM 3D MODELER Formatting of this note may be different from the original. ATTESTATION I personally observed the resident performing the E/M, discussed case with resident, and concur with resident documentation of history, physical assessment and treatment plan unless otherwise noted. -Labs and vitals reviewed and stable. -patient seen today at bedside for discharge education, all questions answered -discharge arrangements coordinated with SW/ CM -medically and functionally stable for discharge Staff name: Geovanny Holloway MD Date: 05/01/2017 * Sindy Mccloud, PhD - 05/01/2017 9:02 AM 3D MODELER [id number] Pt was seen for follow-up with no family or significant others present. Pt was alert, oriented, and open/responsive to inquiry. The utility of this service was discussed and pt agreed to participate. Speech was WNL and thought processes were connected and logical to content of conversation. Eye contact was within social norms and non-verbal behaviors were appropriate to context. Mood and affect were congruent and euthymic. Pt discussed discharge to [facility]. Supportive therapy was provided to pt. I encouraged pt to meet with Rehab Psychology team at [facility], which he was open and agreeable to. Pts progress, utilization of coping skills, and goals for rehab therapies were supported. Julia Chakraborty, Ph.D. Neurorehabilitation Psychology Postdoctoral Fellow Pager #: [phone] ATTESTATION: I discussed this session and pt's care with the fellow and agree with her note above. Plan to see pt for outpatient neuropsych eval. Joann Mccloud, PhD, ABPP * Joyce Trivedi, STANTON - 04/30/2017 3:18 PM 3D MODELER SPEECH-LANGUAGE PATHOLOGY REHAB SPEECH DAILY/DISCHARGE NOTE SUMMARY: Patient was seen for two 30 min therapy sessions. Patient has made progress since admit. Mr. Skinner is now able to read fluently w/ min cues, improved insight/awareness of his deficits, beginning to utilize strategies to self correct, improved motivation. Short term memory, attention and mathematical reasoning skills continued to need to be addressed at the next level of care. Patient was discussed in team conference. PLAN: Patient is discharging home tomorrow with his . He will receive ongoing speech therapy at [facility] FREQUENCY TODAY: 2 ACTIVITIES FOR THE DAY: Sustained Attention/Visual Search: Crossword Puzzle: X2: 80% accy min cues. Identifying Differences in Abstract Designs: 4/10 w/ mod cues. (improved sustained attention) Divided Attention: Trails task x2: 80% accy min cues Provided feedback and discussed strategies/approach for each task. Patient requested additional activities he can work on over the weekend. Speech Care Home Goals Will improve attention skills necessary for safety in the home with: Achieved Will improve skills necessary for KENNY's and safety in the home with: Achieved Speech Short Term Goals Will demonstrate higher level reasoning skills for return home with: Achieved Will demonstrate mathematical problem solving skills for ADLs with: Adequate for discharge, Progressing Will demonstrate visual scanning skills with: Achieved Will demonstrate functional reading skills for ADLs with: Achieved Will demonstrate memory for safety sequences for transfer and ADLs with: Achieved Will demonstrate sustained attention for task performance with: Achieved Therapist: Joyce Akins/MAE/NURSING CARE PARTNER Date: 03/30/2017 * Luigi Galicia DO - 04/30/2017 3:06 PM 3D MODELER Formatting of this note may be different from the original. Physical Medicine & Rehabilitation Progress Note Today's Date: 04/30/2017 Admission Date: 03/28/2017 LOS: 33 days Principal Problem: Cerebrovascular accident (CVA) due to thrombosis of right middle cerebral artery (HCC) Active Problems: Left hemiparesis (HCC) Left-sided neglect Impaired mobility and ADLs Assessment/Plan: Thomas Osei is a 41 y.o. male admitted to [facility] on 03/28/2017 with the following issues: stroke Rehabilitation Plan Rehabilitation Diagnosis: ischemic stroke Current Therapy: PT, OT, ST, neuropsych Goals: home; min-A Tentative discharge date: 05/01/17 Discharge Therapy: Day Program/Outpatient PT/OT DME: Manual wheelchair with cushion (eval completed), tub transfer bench, grab bars. -Due to patients functional limitations they require a manual wheelchair for independent mobility in the home. A therapy evaluation was completed during their inpatient rehab stay to assess the most appropriate wheelchair for the patient. He will be able to propel an ultralightweight wheelchair and cannot independently propel a standard wheelchair. Daily Functional Update: Transfers Device Sit to Stand Transfer: Assistive Device: None (04/28/2017 2:00 PM) No Data Recorded Gait Device Assist Required Distance Gait: Assistive Device: None (04/28/2017 2:00 PM) No Data Recorded Gait Distance: 150 feet (x1, 100'x1, 25'x1) (04/28/2017 2:00 PM) Toileting Assist Required Equipment Toilet Transfer Toileting Assist: Minimal Assist (04/30/2017 7:00 AM) Toileting Equipment: Commode - bedside (04/22/2017 9:00 AM) Toilet Transfer Assist: Moderate assist (04/30/2017 7:00 AM) Dressing Lower Body LE Dressing Assist: Minimal Assist (04/25/2017 7:45 AM) Cognition - 04/25 Patient did not need cues to scan information to the left side of the page. Patient completed both pages by orally reading text and required x5 cues when he missed a sentence or was unable to resume reading information where he left of during discussion. Patient identified top 3 characteristics of RH injury as vision/vision neglect, difficulty with memory and learning and reasoning skills. Right MCA CVA (M2 occlusion) - cryptogenic, as per workup so far - ongoing left upper and lower extremity paresis, left facial droop, dysarthria , left neglect - LDL 118 - HbA1c- 5.2 - ECHO (TTE) - EF 55%, mild hypokinesis of basal to mid anteroseptal ji, normal atria size, no PFO - Hypercoagulable workup so far: Cardiolipin IgG :13, Cardiolipin IgM :13, Activated Protein C Resistance: 2.6, Factor 2 Mutation : negative, Negative immunophenotypic study, no evidence of paroxysmal nocturnal hemoglobinuria, BCR/ ABL1 normal - NICKO- no evidence of interarterial shunting. No thrombus. Plan: > ASA 325mg Qday > Atorvastatin 40mg Qday > Fluoxetine 20mgQday for motor recovery > Hematology follow up (Dr. Esparza 05/15/17) > Neurology stroke clinic follow up (05/23/17) Left sided hemiplegia Left neglect Impaired mobility and ADLs - PT/OT - on fluoxetine for motor recovery after stroke Regression in therapies -Therapy team concerned for regression in therapies during team meeting 04/30 -CT head 04/30 w/o evidence of acute pathology >F/u UA to r/o infection Muscle spasms Spasticity LLE shooting pain - baclofen 20mg TID - gabapentin 300mg qhs -Robaxin PRN Cognitive impairment - NURSING CARE PARTNER cognitive remediation Back Pain - acute on chronic > Lidocaine patches Pain Management: Scheduled tylenol 1g TID. Oxycodone, lidocaine, robaxin PRN . Skin: There are no pressure sores currently. Bowel: continent of bowel, constipated, may need enema today Bladder: continent of bladder, most recent BVIs without concern for urinary retention Nutrition: Current diet: regular Mental Health: consult neuropsychology to provide support / counseling DVT Prophylaxis: Regulo Galicia DO Pager [phone] Subjective No acute events overnight. Pt seen in in in hallway on rounds. Pt stated that he slept well last night, jaw pain and spasms stable. Concern raised during team meeting for regression in therapies. CT head obtained and unremarkable for acute pathology. F/u UA. Objective Vital Signs: Last Filed Vital Signs: 24 Hour Range BP: 127/82 (04/30 1500) Temp: 36.6 C (97.8 F) (04/30 1500) Pulse: 68 (04/30 1500) Respirations: 16 PER MINUTE (04/30 1500) SpO2: 98 % (04/30 1500) O2 Delivery: None (Room Air) (04/30 1499) BP: (122-134)/(66-82) Temp: [36.4 C (97.6 F)-36.7 C (98 F)] Pulse: [56-68] Respirations: [16 PER MINUTE-18 PER MINUTE] SpO2: [97 %-98 %] O2 Delivery: None (Room Air) Intensity Pain Scale 0-10 (Pain 1): 5 (04/29/172036) Vitals: 04/22/17 0606 04/23/17 0547 04/29/17 0600 Weight: 72.8 kg (160 lb 7.9 oz) 73.1 kg (161 lb 2.5 oz) 77.6 kg (171 lb) Intake/Output Summary: (Last 24 hours) Intake/Output Summary (Last 24 hours) at 04/30/17 1506 Last data filed at 04/30/17 1300 Gross per 24 hour Intake 480 ml Output 475 ml Net 5 ml Stool Occurrence: 1 Oral Diet Order: Regular Last BM Date: 04/29/17 Lab: Results for orders placed or performed during the hospital encounter of (from the past 24 hour(s)) CBC Collection Time: 04/30/17 8:47 AM # # Low-High White Blood Cells 5.8 4.5 - 11.0 K/UL RBC 5.12 4.4 - 5.5 M/UL Hemoglobin 16.3 13.5 - 16.5 GM/DL Hematocrit 47.7 40 - 50 % MCV 93.1 80 - 100 FL MCH 31.8 26 - 34 PG MCHC 34.2 32.0 - 36.0 G/DL RDW 12.9 11 - 15 % Platelet Count 200 150 - 400 K/UL MPV 8.5 7 - 11 FL BASIC METABOLIC PANEL Collection Time: 04/30/17 8:47 AM # # Low-High Sodium 137 137 - 147 MMOL/L Potassium 3.7 3.5 - 5.1 MMOL/L Chloride 104 98 - 110 MMOL/L CO2 26 21 - 30 MMOL/L Anion Gap 7 3 - 12 Glucose 99 70 - 100 MG/DL Blood Urea Nitrogen 14 7 - 25 MG/DL Creatinine 0.84 0.4 - 1.24 MG/DL Calcium 9.8 8.5 - 10.6 MG/DL eGFR Non >60 >60 mL/min eGFR >60 >60 mL/min Physical Exam VS: BP 127/82 (BP Source: Arm, Right) | Pulse 68 | Temp 36.6 C (97.8 F) | Ht 188 cm (74.02") | Wt 77.6 kg (171 lb) | SpO2 98% | BMI 21.95 kg/m2 General: Patient appears stated age, in no acute distress HEENT: Normocephalic, atraumatic Neck: full AROM with improving right gaze preference Cardiovascular: Well perfused Pulmonary: Unlabored respirations Extremities: No cyanosis, clubbing, or edema Skin: Warm and dry Psychiatric: Appropriate mood and affect Musculoskeletal: No atrophy Neurologic: Mental Status: alert Cognition: normal processing speed for casual conversation Speech: mildly dysarthric but clear Cranial Nerves: L facial droop, L neglect improving - no cues to attend left Motor: Right sided strength 5/5, Extensor thrust present LLE Therapy Notes & Labs Reviewed. Luigi Galicia DO 0037 Associated attestation - Geovanny Holloway MD - 04/30/2017 9:22 PM 3D MODELER Formatting of this note may be different from the original. ATTESTATION I personally observed the resident performing the E/M, discussed case with resident, and concur with resident documentation of history, physical assessment and treatment plan unless otherwise noted. -Labs and vitals reviewed and stable. -Therapy reporting increased difficulty with initiation over the last few days. Head CT obtained and was without acute changes. Will check UA to r/o recurrent UTI. Staff name: Geovanny Holloway MD Date: 04/30/2017 * Joyce Trivedi MA - 04/29/2017 12:17 PM 3D MODELER SPEECH-LANGUAGE PATHOLOGY REHAB SPEECH DAILY NOTE SUMMARY: Patient was seen for two 30 min therapy sessions. 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 FREQUENCY TODAY: 2 ACTIVITIES FOR THE DAY: Sustained Attention/Maintaining a Response: Single digit addition: 84% accy mod cues. Visual Scanning/Divided Attention: Trails task: 90% accy min to mod cues. Simple Crossword Puzzle x2: Task 1: 8/8 min cues. Task 2: 13/16 min to mod cues. Cues to initiate and respond. Oral Reading of News Articles x2: Scanning x2 each article. Retention of Material: 60% mod cues. Reading Weather Forecast: Response to questions: moderately delayed. Accuracy 80% accy Patient was seen for session 2 in the [facility] d/t patient unable to initiate a transfer with OT at the end of their session back into his wheelchair. At the end of speech therapy, OT returned and pt was able to initiate a transfer back into his wheelchair. Patient was able to verbalize what and why he is having so much difficulty. He stated is was like standing at "the edge of a diving board." Speech Campaign Worker Goals Will improve attention skills necessary for safety in the home with: Minimal to Moderate assist Will improve skills necessary for KENNY's and safety in the home with: Minimal to Moderate assist Speech Short Term Goals Will demonstrate higher level reasoning skills for return home with: Progressing Will demonstrate mathematical problem solving skills for ADLs with: Progressing Will demonstrate visual scanning skills with: Progressing Will demonstrate functional reading skills for ADLs with: Progressing Will demonstrate memory for safety sequences for transfer and ADLs with: Progressing Will demonstrate sustained attention for task performance with: Progressing Therapist: Joyce Akins/MAE/NURSING CARE PARTNER Date: 03/30/2017 * Geovanny Holloway MD - 04/29/2017 8:26 AM 3D MODELER Formatting of this note may be different from the original. ATTESTATION I personally observed the resident performing the E/M, discussed case with resident, and concur with resident documentation of history, physical assessment and treatment plan unless otherwise noted. Labs and vitals reviewed and stable. Progressing towards discharge 05/01. Jaw pain and spasms are improved. Staff name: Geovanny Holloway MD Date: 04/29/2017 Physical Medicine & Rehabilitation Progress Note Today's Date: 04/29/2017 Admission Date: 03/28/2017 LOS: 32 days Principal Problem: Cerebrovascular accident (CVA) due to thrombosis of right middle cerebral artery (HCC) Active Problems: Left hemiparesis (HCC) Left-sided neglect Impaired mobility and ADLs Assessment/Plan: Thomas Osei is a 41 y.o. male admitted to [facility] on 03/28/2017 with the following issues: stroke Rehabilitation Plan Rehabilitation Diagnosis: ischemic stroke Current Therapy: PT, OT, ST, neuropsych Goals: home; min-A Tentative discharge date: 05/01/17 Discharge Therapy: Day Program/Outpatient PT/OT DME: Manual wheelchair with cushion (eval completed), tub transfer bench, grab bars. -Due to patients functional limitations they require a manual wheelchair for independent mobility in the home. A therapy evaluation was completed during their inpatient rehab stay to assess the most appropriate wheelchair for the patient. He will be able to propel an ultralightweight wheelchair and cannot independently propel a standard wheelchair. Daily Functional Update: Transfers Device Sit to Stand Transfer: Assistive Device: None (04/28/2017 2:00 PM) No Data Recorded Gait Device Assist Required Distance Gait: Assistive Device: None (04/28/2017 2:00 PM) No Data Recorded Gait Distance: 150 feet (x1, 100'x1, 25'x1) (04/28/2017 2:00 PM) Toileting Assist Required Equipment Toilet Transfer Toileting Assist: Moderate Assist (04/22/2017 9:00 AM) Toileting Equipment: Commode - bedside (04/22/2017 9:00 AM) Toilet Transfer Assist: Moderate assist (04/23/2017 7:00 AM) Dressing Lower Body LE Dressing Assist: Minimal Assist (04/25/2017 7:45 AM) Cognition - 04/25 Patient did not need cues to scan information to the left side of the page. Patient completed both pages by orally reading text and required x5 cues when he missed a sentence or was unable to resume reading information where he left of during discussion. Patient identified top 3 characteristics of RH injury as vision/vision neglect, difficulty with memory and learning and reasoning skills. Right MCA CVA (M2 occlusion) - cryptogenic, as per workup so far - ongoing left upper and lower extremity paresis, left facial droop, dysarthria , left neglect - LDL 118 - HbA1c- 5.2 - ECHO (TTE) - EF 55%, mild hypokinesis of basal to mid anteroseptal ji, normal atria size, no PFO - Hypercoagulable workup so far: Cardiolipin IgG :13, Cardiolipin IgM :13, Activated Protein C Resistance: 2.6, Factor 2 Mutation : negative, Negative immunophenotypic study, no evidence of paroxysmal nocturnal hemoglobinuria, BCR/ ABL1 normal - NICKO- no evidence of interarterial shunting. No thrombus. Plan: > ASA 325mg Qday > Atorvastatin 40mg Qday > Fluoxetine 20mgQday for motor recovery > Hematology follow up (Dr. Esparza 05/15/17) > Neurology stroke clinic follow up (05/23/17) Left sided hemiplegia Left neglect Impaired mobility and ADLs - PT/OT - on fluoxetine for motor recovery after stroke Muscle spasms Spasticity LLE shooting pain - baclofen 20mg TID - gabapentin 300mg qhs -Robaxin PRN Cognitive impairment - NURSING CARE PARTNER cognitive remediation Back Pain - acute on chronic > Lidocaine patches Pain Management: Scheduled tylenol 1g TID. Oxycodone, lidocaine, robaxin PRN . Skin: There are no pressure sores currently. Bowel: continent of bowel, constipated, may need enema today Bladder: continent of bladder, most recent BVIs without concern for urinary retention Nutrition: Current diet: regular Mental Health: consult neuropsychology to provide support / counseling DVT Prophylaxis: Regulo Galicia DO Pager [phone] Subjective No acute events overnight or over the weekend. Pt seen in hallway in about to go to therapies this am. Pt complaining of TMJ pain over the weekend which he stated started some time last week. His stated he jaw pain was not present this am however. Stated spasms in his legs have improved. No other questions/ concerns when seen. Sleeping well, pain well controlled. Objective Vital Signs: Last Filed Vital Signs: 24 Hour Range BP: 135/82 (04/29 599) Temp: 36.5 C (97.7 F) (04/29 599) Pulse: 57 (04/29 599) Respirations: 18 PER MINUTE (04/29 599) SpO2: 96 % (04/29 599) O2 Delivery: None (Room Air) (04/29 599) BP: (127-135)/(82) Temp: [36.4 C (97.5 F)-36.5 C (97.7 F)] Pulse: [57-66] Respirations: [18 PER MINUTE] SpO2: [96 %-97 %] O2 Delivery: None (Room Air) Vitals: 04/22/17 0606 04/23/17 0547 04/29/17 0600 Weight: 72.8 kg (160 lb 7.9 oz) 73.1 kg (161 lb 2.5 oz) 77.6 kg (171 lb) Intake/Output Summary: (Last 24 hours) Intake/Output Summary (Last 24 hours) at 04/29/17 0826 Last data filed at 04/29/17 0600 Gross per 24 hour Intake 1040 ml Output 500 ml Net 540 ml Stool Occurrence: 1 Oral Diet Order: Regular Last BM Date: 04/28/17 Lab: No results found for this visit on 03/28/17 (from the past 24 hour(s)). Physical Exam VS: BP 135/82 (BP Source: Arm, Right) | Pulse 57 | Temp 36.5 C (97.7 F) | Ht 188 cm (74.02") | Wt 77.6 kg (171 lb) | SpO2 96% | BMI 21.95 kg/m2 General: Patient appears stated age, in no acute distress HEENT: Normocephalic, atraumatic Neck: full AROM with improving right gaze preference Cardiovascular: Well perfused Pulmonary: Unlabored respirations Extremities: No cyanosis, clubbing, or edema Skin: Warm and dry Psychiatric: Appropriate mood and affect Musculoskeletal: No atrophy Neurologic: Mental Status: alert Cognition: normal processing speed for casual conversation Speech: mildly dysarthric but clear Cranial Nerves: L facial droop, L neglect improving - no cues to attend left Motor: Right sided strength 5/5, Extensor thrust present LLE Therapy Notes & Labs Reviewed. Luigi Galicia DO [id number] * Zechariah Gutierrez - 04/28/2017 2:49 PM [facility] PHYSICAL THERAPY MOBILITY NOTE Patient participated in supplemental activity with a rehabilitation counsellor as directed by a rehabilitation therapist. Aide: Zechariah Gutierrez Date: 04/28/2017 * Alpa Danielle MD - 04/28/2017 11:25 AM [facility] Formatting of this note may be different from the original. Physical Medicine & Rehabilitation Progress Note Today's Date: 04/28/2017 Admission Date: 03/28/2017 LOS: 31 days Principal Problem: Cerebrovascular accident (CVA) due to thrombosis of right middle cerebral artery (HCC) Active Problems: Left hemiparesis (HCC) Left-sided neglect Impaired mobility and ADLs Assessment/Plan: Rehab Weekend Plan: Sat:NTD Sun: NTD Thomas Osei is a 41 y.o. male admitted to [facility] on 03/28/2017 with the following issues: stroke Rehabilitation Plan Rehabilitation Diagnosis: ischemic stroke Current Therapy: PT, OT, ST, neuropsych Goals: home; min-A Tentative discharge date: 05/01/17 Discharge Therapy: Day Program/Outpatient PT/OT DME: Manual wheelchair with cushion (eval completed), tub transfer bench, grab bars. -Due to patients functional limitations they require a manual wheelchair for independent mobility in the home. A therapy evaluation was completed during their inpatient rehab stay to assess the most appropriate wheelchair for the patient. He will be able to propel an ultralightweight wheelchair and cannot independently propel a standard wheelchair. Daily Functional Update: Transfers Device Sit to Stand Transfer: Assistive Device: None (04/25/2017 8:30 AM) No Data Recorded Gait Device Assist Required Distance Gait: Assistive Device: None (FreshOffice for LLE dorsiflexion assist) (04/26/2017 9 :15 AM) No Data Recorded Gait Distance: 175 feet (100 x 2) (04/26/2017 9:15 AM) Toileting Assist Required Equipment Toilet Transfer Toileting Assist: Moderate Assist (04/22/2017 9:00 AM) Toileting Equipment: Commode - bedside (04/22/2017 9:00 AM) Toilet Transfer Assist: Moderate assist (04/23/2017 7:00 AM) Dressing Lower Body LE Dressing Assist: Minimal Assist (04/25/2017 7:45 AM) Cognition - 04/25 Patient did not need cues to scan information to the left side of the page. Patient completed both pages by orally reading text and required x5 cues when he missed a sentence or was unable to resume reading information where he left of during discussion. Patient identified top 3 characteristics of RH injury as vision/vision neglect, difficulty with memory and learning and reasoning skills. Right MCA CVA (M2 occlusion) - cryptogenic, as per workup so far - ongoing left upper and lower extremity paresis, left facial droop, dysarthria , left neglect - LDL 118 - HbA1c- 5.2 - ECHO (TTE) - EF 55%, mild hypokinesis of basal to mid anteroseptal ji, normal atria size, no PFO - Hypercoagulable workup so far: Cardiolipin IgG :13, Cardiolipin IgM :13, Activated Protein C Resistance: 2.6, Factor 2 Mutation : negative, Negative immunophenotypic study, no evidence of paroxysmal nocturnal hemoglobinuria, BCR/ ABL1 normal - NICKO- no evidence of interarterial shunting. No thrombus. Plan: > ASA 325mg Qday > Atorvastatin 40mg Qday > Fluoxetine 20mgQday for motor recovery > Hematology follow up (Dr. Esparza 05/15/17) > Neurology stroke clinic follow up (05/23/17) Left sided hemiplegia Left neglect Impaired mobility and ADLs - PT/OT - on fluoxetine for motor recovery after stroke Muscle spasms Spasticity LLE shooting pain - baclofen 20mg TID - gabapentin 300mg qhs -Robaxin PRN Cognitive impairment - NURSING CARE PARTNER cognitive remediation Back Pain - acute on chronic > Lidocaine patches Pain Management: Scheduled tylenol 1g TID. Oxycodone, lidocaine, robaxin PRN . Skin: There are no pressure sores currently. Bowel: continent of bowel, constipated, may need enema today Bladder: continent of bladder, most recent BVIs without concern for urinary retention Nutrition: Current diet: regular Mental Health: consult neuropsychology to provide support / counseling DVT Prophylaxis: Regulo Danielle MD Subjective No acute events overnight. Having TMJ pain when he wakes up for the past week. No SOB, chest pain, nausea emesis, headache. Objective Vital Signs: Last Filed Vital Signs: 24 Hour Range BP: 116/65 (04/28 503) Temp: 36.2 C (97.2 F) (04/28 503) Pulse: 59 (04/28 503) Respirations: 16 PER MINUTE (04/28 503) SpO2: 97 % (04/28 503) O2 Delivery: None (Room Air) (04/28 503) BP: (116-122)/(65) Temp: [36.2 C (97.2 F)-36.7 C (98.1 F)] Pulse: [58-59] Respirations: [16 PER MINUTE] SpO2: [96 %-97 %] O2 Delivery: None (Room Air) Vitals: 04/21/17 0624 04/22/17 0606 04/23/17 0547 Weight: 73 kg (160 lb 15 oz) 72.8 kg (160 lb 7.9 oz) 73.1 kg (161 lb 2.5 oz) Intake/Output Summary: (Last 24 hours) Intake/Output Summary (Last 24 hours) at 04/28/17 1126 Last data filed at 04/28/17 0900 Gross per 24 hour Intake 340 ml Output 225 ml Net 115 ml Stool Occurrence: 1 Oral Diet Order: Regular Last BM Date: 04/26/17 Lab: No results found for this visit on 03/28/17 (from the past 24 hour(s)). Physical Exam VS: BP 116/65 (BP Source: Arm, Right) | Pulse 59 | Temp 36.2 C (97.2 F) | Ht 188 cm (74.02") | Wt 73.1 kg (161 lb 2.5 oz) | SpO2 97% | BMI 20.68 kg/m2 General: Patient appears stated age, in no acute distress HEENT: Normocephalic, atraumatic Neck: full AROM with improving right gaze preference Cardiovascular: Well perfused Pulmonary: Unlabored respirations Extremities: No cyanosis, clubbing, or edema Skin: Warm and dry Psychiatric: Appropriate mood and affect Musculoskeletal: No atrophy Neurologic: Mental Status: alert Cognition: normal processing speed for casual conversation Speech: mildly dysarthric but clear Cranial Nerves: L facial droop, L neglect improving - no cues to attend left Motor: Right sided strength 5/5, Extensor thrust present LLE Therapy Notes & Labs Reviewed. Alpa Danielle MD *[phone] Associated attestation - Joon Owen MD - 04/28/2017 7:23 PM [facility] Rehabilitation Medicine Attending Physician Attestation: I personally performed lima portions of the history and exam. I discussed the case with the resident and concur with the resident's documentation of history, physical assessment and treatment plan unless otherwise noted. Joon Owen MD * Zechariah Gutierrez - 04/27/2017 12:56 PM [facility] PHYSICAL THERAPY MOBILITY NOTE Patient participated in supplemental activity with a rehabilitation counsellor as directed by a rehabilitation therapist. Aide: Zechariah Gutierrez Date: 04/27/2017 * Alpa Danielle MD - 04/27/2017 11:18 AM [employer] Formatting of this note may be different from the original. Physical Medicine & Rehabilitation Progress Note Today's Date: 04/27/2017 Admission Date: 03/28/2017 LOS: 30 days Principal Problem: Cerebrovascular accident (CVA) due to thrombosis of right middle cerebral artery (HCC) Active Problems: Left hemiparesis (HCC) Left-sided neglect Impaired mobility and ADLs Assessment/Plan: Rehab Plan: Sat:NTD Thomas Osei is a 41 y.o. male admitted to [facility] on 03/28/2017 with the following issues: stroke Rehabilitation Plan Rehabilitation Diagnosis: ischemic stroke Current Therapy: PT, OT, ST, neuropsych Goals: home; min-A Tentative discharge date: 05/01/17 Discharge Therapy: Day Program/Outpatient PT/OT DME: Manual wheelchair with cushion (eval completed), tub transfer bench, grab bars. -Due to patients functional limitations they require a manual wheelchair for independent mobility in the home. A therapy evaluation was completed during their inpatient rehab stay to assess the most appropriate wheelchair for the patient. He will be able to propel an ultralightweight wheelchair and cannot independently propel a standard wheelchair. Daily Functional Update: Transfers Device Sit to Stand Transfer: Assistive Device: None (04/25/2017 8:30 AM) No Data Recorded Gait Device Assist Required Distance Gait: Assistive Device: None (FreshOffice for LLE dorsiflexion assist) (04/26/2017 9 :15 AM) No Data Recorded Gait Distance: 175 feet (100 x 2) (04/26/2017 9:15 AM) Toileting Assist Required Equipment Toilet Transfer Toileting Assist: Moderate Assist (04/22/2017 9:00 AM) Toileting Equipment: Commode - bedside (04/22/2017 9:00 AM) Toilet Transfer Assist: Moderate assist (04/23/2017 7:00 AM) Dressing Lower Body LE Dressing Assist: Minimal Assist (04/25/2017 7:45 AM) Cognition - 04/25 Patient did not need cues to scan information to the left side of the page. Patient completed both pages by orally reading text and required x5 cues when he missed a sentence or was unable to resume reading information where he left of during discussion. Patient identified top 3 characteristics of RH injury as vision/vision neglect, difficulty with memory and learning and reasoning skills. Right MCA CVA (M2 occlusion) - cryptogenic, as per workup so far - ongoing left upper and lower extremity paresis, left facial droop, dysarthria , left neglect - LDL 118 - HbA1c- 5.2 - ECHO (TTE) - EF 55%, mild hypokinesis of basal to mid anteroseptal ji, normal atria size, no PFO - Hypercoagulable workup so far: Cardiolipin IgG :13, Cardiolipin IgM :13, Activated Protein C Resistance: 2.6, Factor 2 Mutation : negative, Negative immunophenotypic study, no evidence of paroxysmal nocturnal hemoglobinuria, BCR/ ABL1 normal - NICKO- no evidence of interarterial shunting. No thrombus. Plan: > ASA 325mg Qday > Atorvastatin 40mg Qday > Fluoxetine 20mgQday for motor recovery > Hematology follow up (Dr. Esparza 05/15/17) > Neurology stroke clinic follow up (05/23/17) Left sided hemiplegia Left neglect Impaired mobility and ADLs - PT/OT - on fluoxetine for motor recovery after stroke Muscle spasms Spasticity LLE shooting pain - baclofen 20mg TID - gabapentin 300mg qhs -Robaxin PRN Cognitive impairment - NURSING CARE PARTNER cognitive remediation Back Pain - acute on chronic > Lidocaine patches Pain Management: Scheduled tylenol 1g TID. Oxycodone, lidocaine, robaxin PRN . Skin: There are no pressure sores currently. Bowel: continent of bowel, constipated, may need enema today Bladder: continent of bladder, most recent BVIs without concern for urinary retention Nutrition: Current diet: regular Mental Health: consult neuropsychology to provide support / counseling DVT Prophylaxis: Regulo Danielle MD Subjective No acute events overnight. No SOB, chest pain, nausea, emesis, headache. Objective Vital Signs: Last Filed Vital Signs: 24 Hour Range BP: 142/89 (04/26 1629) Temp: 36.6 C (97.9 F) (04/26 1629) Pulse: 59 (04/26 1629) Respirations: 16 PER MINUTE (04/26 1629) SpO2: 95 % (04/26 1629) O2 Delivery: None (Room Air) (04/26 1630) BP: (142)/(89) Temp: [36.6 C (97.9 F)] Pulse: [59] Respirations: [16 PER MINUTE] SpO2: [95 %] O2 Delivery: None (Room Air) Vitals: 04/21/17 0624 04/22/17 0606 04/23/17 0547 Weight: 73 kg (160 lb 15 oz) 72.8 kg (160 lb 7.9 oz) 73.1 kg (161 lb 2.5 oz) Intake/Output Summary: (Last 24 hours) Intake/Output Summary (Last 24 hours) at 04/27/17 1118 Last data filed at 04/27/17 1000 Gross per 24 hour Intake 480 ml Output 900 ml Net -420 ml Stool Occurrence: 1 Oral Diet Order: Regular Last BM Date: 04/26/17 Lab: No results found for this visit on 03/28/17 (from the past 24 hour(s)). Physical Exam VS: BP 142/89 (BP Source: Arm, Right) | Pulse 59 | Temp 36.6 C (97.9 F) | Ht 188 cm (74.02") | Wt 73.1 kg (161 lb 2.5 oz) | SpO2 95% | BMI 20.68 kg/m2 General: Patient appears stated age, in no acute distress HEENT: Normocephalic, atraumatic Neck: full AROM with improving right gaze preference Cardiovascular: Well perfused Pulmonary: Unlabored respirations Extremities: No cyanosis, clubbing, or edema Skin: Warm and dry Psychiatric: Appropriate mood and affect Musculoskeletal: No atrophy Neurologic: Mental Status: alert Cognition: normal processing speed for casual conversation Speech: mildly dysarthric but clear Cranial Nerves: L facial droop, L neglect improving - no cues to attend left Motor: Right sided strength 5/5, Extensor thrust present LLE Therapy Notes & Labs Reviewed. Alpa Danielle MD *[phone] Associated attestation - Joon Owen MD - 04/28/2017 1:34 AM [facility] Rehabilitation Medicine Attending Physician Attestation: I personally performed lima portions of the history and exam. I discussed the case with the resident and concur with the resident's documentation of history, physical assessment and treatment plan unless otherwise noted. Joon Owen MD * Luisa Rubyah - 04/26/2017 7:24 PM [facility] Activity Therapy Patient and therapist completed a 1:1 wellness session today to follow up on service dog information and discuss patients progress in therapy. * Joyce Trivedi MA - 04/26/2017 4:06 PM [facility] SPEECH-LANGUAGE PATHOLOGY REHAB SPEECH DAILY NOTE SUMMARY: Patient was seen for one 30 min therapy session by this clinician. Education with patient regarding right hemisphere dysfunction. 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 FREQUENCY TODAY: 2 ACTIVITIES FOR THE DAY: Patient verbalizing frustration with recovery from his CVA. Provided encouragement and suggestions for ongoing therapy. Worked the entire session on sustained/alteranting attention, having the patient perform simple single digit addition and subtraction problems. Moderate difficulty noted w/ alternating attention. 80% accy mod cues. Pt reported mild improvement over the course of the task with simple addition/ subtraction however sustaining attention was difficult. Provided feedback and support. Speech Campaign Worker Goals Will improve attention skills necessary for safety in the home with: Minimal to Moderate assist Will improve skills necessary for KENNY's and safety in the home with: Minimal to Moderate assist Speech Short Term Goals Will demonstrate higher level reasoning skills for return home with: Progressing Will demonstrate mathematical problem solving skills for ADLs with: Progressing Will demonstrate visual scanning skills with: Progressing Will demonstrate functional reading skills for ADLs with: Progressing Will demonstrate memory for safety sequences for transfer and ADLs with: Progressing Will demonstrate sustained attention for task performance with: Progressing Therapist: Joyce Akins/MAE/NURSING CARE PARTNER Date: 03/30/2017 * Елена Amaya - 04/26/2017 3:22 PM [facility] SPEECH-LANGUAGE PATHOLOGY REHAB SPEECH DAILY NOTE SUMMARY: Patient seen for 30 min of speech therapy this date by this clinician. PLAN: Continue current therapy plan. FREQUENCY TODAY: 1x by this NURSING CARE PARTNER ACTIVITIES FOR THE DAY: Completed reading comprehension tasks this date. No significant difficulty noted with scanning to L side of page during reading. Pt able to answer 75% (across 3 reading activities) of reading comprehension questions after independently reading mid-level reading material. Pt states he would like to continue to address reading, as he often has to read for work. Pt encouraged to read outside of therapy to maximize progress. Speech Campaign Worker Goals Will improve attention skills necessary for safety in the home with: Minimal to Moderate assist Will improve skills necessary for KENNY's and safety in the home with: Minimal to Moderate assist Speech Short Term Goals Will demonstrate higher level reasoning skills for return home with: Progressing Will demonstrate mathematical problem solving skills for ADLs with: Progressing Will demonstrate visual scanning skills with: Progressing Will demonstrate functional reading skills for ADLs with: Progressing Will demonstrate memory for safety sequences for transfer and ADLs with: Progressing Will demonstrate sustained attention for task performance with: Progressing Therapist: Marilyn Rodriguez/ORALIA-NURSING CARE PARTNER [phone] Date: 04/26/2017 * Asha Giron - 04/26/2017 2:12 PM [facility] CLINICAL NUTRITION Clinical Nutrition Re-Eval Summary Nutrition Assessment of Patient: Current Oral Intake: Adequate Oral Diet Order: Regular 41 yo M with no significant PMH, admitted to [facility] on 03/28/17 s/p stroke due to thrombosis of R middle cerebral artery. BMI 21 and LDL 118. Pt and spouse previously educated on heart healthy diet strategies. Pt continues to eat well with no nutrition concerns, consuming 80-100% of recent meals, 3 meals/day. Ate 90% of breakfast this morning. Pt reports appetite can be marginally affected by presence of canker sores in his mouth. Reports he is generally choosing softer foods but tolerated roast beef fine. Encouraged him to try protein shakes if chewing is too painful or between meals if needed. He denies n/v/d/c. LBM was this morning per pt. Bowel regimen onboard. Wt is -4.9 kg since admit with -11.8 L per I/Os. No pressure injuries or edema noted. Not currently at nutritional risk. Will continue to monitor. Recommendation: Continue currently ordered diet. Recommend Magic Mouthwash for reported mouth sores. Asha Giron, BS-NDTR Dietitian [employer] *[phone] * Geovanny Holloway MD - 04/26/2017 1:47 PM 3D [facility] Formatting of this note may be different from the original. ATTESTATION I personally observed the resident performing the E/M, discussed case with resident, and concur with resident documentation of history, physical assessment and treatment plan unless otherwise noted. Labs and vitals reviewed and stable. Progressing well towards discharge next week. New extensor thrust in the left lower limb now able to be volitionally activated in isolation outside of dynamic motor activity. Neglect and impaired insight improving. Staff name: Geovanny Holloway MD Date: 04/26/2017 Physical Medicine & Rehabilitation Progress Note Today's Date: 04/26/2017 Admission Date: 03/28/2017 LOS: 29 days Principal Problem: Cerebrovascular accident (CVA) due to thrombosis of right middle cerebral artery (HCC) Active Problems: Left hemiparesis (HCC) Left-sided neglect Impaired mobility and ADLs Assessment/Plan: Thomas Osei is a 41 y.o. male admitted to [facility] on 03/28/2017 with the following issues: stroke Rehabilitation Plan Rehabilitation Diagnosis: ischemic stroke Current Therapy: PT, OT, ST, neuropsych Goals: home; min-A Tentative discharge date: 05/01/17 Discharge Therapy: Day Program/Outpatient PT/OT DME: Manual wheelchair with cushion (eval completed), tub transfer bench, grab bars. -Due to patients functional limitations they require a manual wheelchair for independent mobility in the home. A therapy evaluation was completed during their inpatient rehab stay to assess the most appropriate wheelchair for the patient. He will be able to propel an ultralightweight wheelchair and cannot independently propel a standard wheelchair. Daily Functional Update: Transfers Device Sit to Stand Transfer: Assistive Device: None (04/25/2017 8:30 AM) No Data Recorded Gait Device Assist Required Distance Gait: Assistive Device: None (Murray wrap to LLE for dorsiflexion assist) (2017 8:30 AM) No Data Recorded Gait Distance: 30 feet (04/25/2017 8:30 AM) Toileting Assist Required Equipment Toilet Transfer Toileting Assist: Moderate Assist (04/22/2017 9:00 AM) Toileting Equipment: Commode - bedside (04/22/2017 9:00 AM) Toilet Transfer Assist: Moderate assist (04/23/2017 7:00 AM) Dressing Lower Body LE Dressing Assist: Minimal Assist (04/25/2017 7:45 AM) Cognition - 04/25 Patient did not need cues to scan information to the left side of the page. Patient completed both pages by orally reading text and required x5 cues when he missed a sentence or was unable to resume reading information where he left of during discussion. Patient identified top 3 characteristics of RH injury as vision/vision neglect, difficulty with memory and learning and reasoning skills. Right MCA CVA (M2 occlusion) - cryptogenic, as per workup so far - ongoing left upper and lower extremity paresis, left facial droop, dysarthria , left neglect - LDL 118 - HbA1c- 5.2 - ECHO (TTE) - EF 55%, mild hypokinesis of basal to mid anteroseptal ji, normal atria size, no PFO - Hypercoagulable workup so far: Cardiolipin IgG :13, Cardiolipin IgM :13, Activated Protein C Resistance: 2.6, Factor 2 Mutation : negative, Negative immunophenotypic study, no evidence of paroxysmal nocturnal hemoglobinuria, BCR/ ABL1 normal - NICKO- no evidence of interarterial shunting. No thrombus. Plan: > ASA 325mg Qday > Atorvastatin 40mg Qday > Fluoxetine 20mgQday for motor recovery > Hematology follow up (Dr. Esparza 05/15/17) > Neurology stroke clinic follow up (05/23/17) Left sided hemiplegia Left neglect Impaired mobility and ADLs - PT/OT - on fluoxetine for motor recovery after stroke Muscle spasms Spasticity LLE shooting pain - baclofen 20mg TID - gabapentin 300mg qhs -Robaxin PRN Cognitive impairment - NURSING CARE PARTNER cognitive remediation Back Pain - acute on chronic > Lidocaine patches Pain Management: Scheduled tylenol 1g TID. Oxycodone, lidocaine, robaxin PRN . Skin: There are no pressure sores currently. Bowel: continent of bowel, constipated, may need enema today Bladder: continent of bladder, most recent BVIs without concern for urinary retention Nutrition: Current diet: regular Mental Health: consult neuropsychology to provide support / counseling DVT Prophylaxis: Regulo Galicia DO Subjective No acute events overnight. Pt seen in gym about to start therapies when seen this am. Pt encouraged with strength he's gaining in his LLE. No concerns when seen. Spasms/pain well controlled. Objective Vital Signs: Last Filed Vital Signs: 24 Hour Range BP: 132/86 (04/26 436) Temp: 36.8 C (98.2 F) (04/26 436) Pulse: 57 (04/26 436) Respirations: 17 PER MINUTE (04/26 436) SpO2: 96 % (04/26 436) O2 Delivery: None (Room Air) (04/26 436) BP: (132-142)/(86-87) Temp: [36.8 C (98.2 F)-36.9 C (98.4 F)] Pulse: [57-61] Respirations: [17 PER MINUTE] SpO2: [95 %-96 %] O2 Delivery: None (Room Air) Vitals: 04/21/17 0624 04/22/17 0606 04/23/17 0547 Weight: 73 kg (160 lb 15 oz) 72.8 kg (160 lb 7.9 oz) 73.1 kg (161 lb 2.5 oz) Intake/Output Summary: (Last 24 hours) Intake/Output Summary (Last 24 hours) at 04/26/17 1347 Last data filed at 04/26/17 0900 Gross per 24 hour Intake 240 ml Output 350 ml Net -110 ml Stool Occurrence: 1 Oral Diet Order: Regular Last BM Date: 04/26/17 (per pt) Lab: No results found for this visit on 03/28/17 (from the past 24 hour(s)). Physical Exam VS: BP 132/86 (BP Source: Arm, Right) | Pulse 57 | Temp 36.8 C (98.2 F) | Ht 188 cm (74.02") | Wt 73.1 kg (161 lb 2.5 oz) | SpO2 96% | BMI 20.68 kg/m2 General: Patient appears stated age, in no acute distress HEENT: Normocephalic, atraumatic Neck: full AROM with improving right gaze preference Cardiovascular: Well perfused Pulmonary: Unlabored respirations Extremities: No cyanosis, clubbing, or edema Skin: Warm and dry Psychiatric: Appropriate mood and affect Musculoskeletal: No atrophy Neurologic: Mental Status: alert Cognition: normal processing speed for casual conversation Speech: mildly dysarthric but clear Cranial Nerves: L facial droop, L neglect improving - no cues to attend left Motor: Right sided strength 5/5, Extensor thrust present LLE Therapy Notes & Labs Reviewed. Luigi Galicia DO * Kortney Ruby - 04/25/2017 6:53 PM 3D MODELER Activity Therapy At 1405 therapist completed a 1:1 with patient to assist in gathering information about qualifying for and acquiring a service dog. * Kortney Ruby - 04/25/2017 6:50 PM 3D MODELER Activity Therapy At 1400 patient participated in a pet therapy session with a volunteer, volunteers dog and this activity therapist. * Geovanny Holloway MD - 04/25/2017 9:57 AM 3D MODELER Formatting of this note may be different from the original. ATTESTATION I personally performed the lima portions of the E/M visit, discussed case with resident and concur with resident documentation of history, physical exam, assessment, and treatment plan unless otherwise noted. Labs and vitals reviewed and stable. Staff name: Geovanny Holloway MD Date: 04/25/2017 Physical Medicine & Rehabilitation Progress Note Today's Date: 04/25/2017 Admission Date: 03/28/2017 LOS: 28 days Principal Problem: Cerebrovascular accident (CVA) due to thrombosis of right middle cerebral artery (HCC) Active Problems: Left hemiparesis (HCC) Left-sided neglect Impaired mobility and ADLs Assessment/Plan: Thomas Osei is a 41 y.o. male admitted to [facility] on 03/28/2017 with the following issues: stroke Rehabilitation Plan Rehabilitation Diagnosis: ischemic stroke Current Therapy: PT, OT, ST, neuropsych Goals: home; min-A Tentative discharge date: 05/01/17 Discharge Therapy: Day Program/Outpatient PT/OT DME: Manual wheelchair with cushion (eval completed), tub transfer bench, grab bars. -Due to patients functional limitations they require a manual wheelchair for independent mobility in the home. A therapy evaluation was completed during their inpatient rehab stay to assess the most appropriate wheelchair for the patient. He will be able to propel an ultralightweight wheelchair and cannot independently propel a standard wheelchair. Daily Functional Update: Transfers Device Sit to Stand Transfer: Assistive Device: None (04/22/2017 2:30 PM) No Data Recorded Gait Device Assist Required Distance Gait: Assistive Device: None (bioness) (04/24/2017 8:30 AM) No Data Recorded Gait Distance: 150 feet (04/24/2017 8:30 AM) Toileting Assist Required Equipment Toilet Transfer Toileting Assist: Moderate Assist (04/22/2017 9:00 AM) Toileting Equipment: Commode - bedside (04/22/2017 9:00 AM) Toilet Transfer Assist: Moderate assist (04/23/2017 7:00 AM) Dressing Lower Body LE Dressing Assist: Minimal Assist (04/23/2017 7:00 AM) Cognition - 04/18 Sustained/Alternating Attention/Visual Scanning: Single digit "+" and "-" 1) 03/27 correct, errors x5 in left field. Impulsive responding, did not pay attention to the sign. 2) 1820 correct, max cues to attend to the sign. *Patient exhibited difficulty with adding numbers that resulted in double digits. Right MCA CVA (M2 occlusion) - cryptogenic, as per workup so far - ongoing left upper and lower extremity paresis, left facial droop, dysarthria , left neglect - LDL 118 - HbA1c- 5.2 - ECHO (TTE) - EF 55%, mild hypokinesis of basal to mid anteroseptal ji, normal atria size, no PFO - Hypercoagulable workup so far: Cardiolipin IgG :13, Cardiolipin IgM :13, Activated Protein C Resistance: 2.6, Factor 2 Mutation : negative, Negative immunophenotypic study, no evidence of paroxysmal nocturnal hemoglobinuria, BCR/ ABL1 normal - NICKO- no evidence of interarterial shunting. No thrombus. Plan: > ASA 325mg Qday > Atorvastatin 40mg Qday > Fluoxetine 20mgQday for motor recovery > Hematology follow up (Dr. Esparza 05/15/17) > Neurology stroke clinic follow up (05/23/17) Left sided hemiplegia Left neglect Impaired mobility and ADLs - PT/OT - on fluoxetine for motor recovery after stroke Muscle spasms Spasticity LLE shooting pain - baclofen 20mg TID - gabapentin 300mg qhs - Restart robaxin PRN 2/2 persistent spasms Cognitive impairment - NURSING CARE PARTNER cognitive remediation UTI - resolved Urinary retention - resolved - likely related to UTI, last cath 03/27 > s/p cipro, ended 04/04 > D/c doxazosin 04/10; Repeat BVI's 04/15 w/o retention Back Pain - acute on chronic > Lidocaine patches Pain Management: Scheduled tylenol 1g TID. Oxycodone, lidocaine, robaxin PRN . Skin: There are no pressure sores currently. Bowel: continent of bowel, constipated, may need enema today Bladder: continent of bladder, most recent BVIs without concern for urinary retention Nutrition: Current diet: regular Mental Health: consult neuropsychology to provide support / counseling DVT Prophylaxis: Regulo Galicia, Subjective No issues/events overnight. Pt seen in in the gym this am. Pt inquired about scheduled maalox which he has been taking for heart burn. Pt stated he is no longer having heartburn, will make maalox prn. Pt continued to endorse spasms in his LLE but improved after he stretches it. No other concerns when seen. Objective Vital Signs: Last Filed Vital Signs: 24 Hour Range BP: 119/82 (04/25 943) Temp: 36.4 C (97.6 F) (04/25 555) Pulse: 56 (04/25 555) Respirations: 18 PER MINUTE (04/25 555) SpO2: 100 % (04/25 555) O2 Delivery: None (Room Air) (04/25 555) BP: (119-131)/(76-83) Temp: [36.4 C (97.6 F)-36.7 C (98 F)] Pulse: [56-63] Respirations: [18 PER MINUTE] SpO2: [97 %-100 %] O2 Delivery: None (Room Air) Vitals: 04/21/17 0624 04/22/17 0606 04/23/17 0547 Weight: 73 kg (160 lb 15 oz) 72.8 kg (160 lb 7.9 oz) 73.1 kg (161 lb 2.5 oz) Intake/Output Summary: (Last 24 hours) Intake/Output Summary (Last 24 hours) at 04/25/17 0957 Last data filed at 04/25/17 0900 Gross per 24 hour Intake 440 ml Output 300 ml Net 140 ml Stool Occurrence: 1 Oral Diet Order: Regular Last BM Date: 04/24/17 Lab: No results found for this visit on 03/28/17 (from the past 24 hour(s)). Physical Exam VS: BP 119/82 (BP Source: Arm, Right) | Pulse 56 | Temp 36.4 C (97.6 F) | Ht 188 cm (74.02") | Wt 73.1 kg (161 lb 2.5 oz) | SpO2 100% | BMI 20.68 kg/m2 General: Patient appears stated age, in no acute distress HEENT: Normocephalic, atraumatic Neck: full AROM with improving right gaze preference Cardiovascular: Well perfused Pulmonary: Unlabored respirations Extremities: No cyanosis, clubbing, or edema Skin: Warm and dry Psychiatric: Appropriate mood and affect Musculoskeletal: No atrophy Neurologic: Mental Status: alert Cognition: normal processing speed for casual conversation Speech: mildly dysarthric but clear Cranial Nerves: L facial droop, L neglect improving - needs some cues to attend left - improving Motor: Right sided strength 5/5, Left sided strength 0/5 in all myotomes (some dynamic movement noted) Gait: able to walk with x1 assistance with therapies. Eversion of L foot after he gets tired Therapy Notes & Labs Reviewed. Luigi Galicia DO * Sindy Mccloud, PhD - 04/25/2017 9:45 AM 3D MODELER [phone] Pt was seen for follow-up with no family or significant others present. Pt was alert, oriented, and open/responsive to inquiry. The utility of this service was discussed and pt agreed to participate. Speech was grossly WNL and thought processes were connected and logical to content of conversation. Eye contact was within social norms and non-verbal behaviors were appropriate to context. Mood and affect were congruent and euthymic. Pt reported noticing some improvement in his physical functioning and noted he has been tracking intermittently some of his daily progress via [employer] (speech to text) for some things on his cell phone. He discussed goals of returning to work and some of the accommodations that may be necessary when he does return to work. He reported some of his co-workers would be visiting him this afternoon. He examined some of his goals for returning to work that may enhance his work-life balance. He discussed engaging in self-reflection at night before going to sleep. Supportive and processing therapy was provided to pt. Cognitive behavioral strategies were used to review and reinforce pt's goals. Pt's coping strategies were reinforced and reviewed and I encouraged pt to practice coping skills such as relaxed breathing and mindfulness techniques as needed. Pts progress, utilization of coping skills, and goals for rehab therapies were supported. Will continue to follow and assess cognition, mood, pain management, and coping. Julia Chakraborty, Ph.D. Neurorehabilitation Psychology Postdoctoral Fellow Pager #: [phone] ATTESTATION: I discussed this session and pt's care with the fellow and agree with her note above. We will continue to follow prn until [facility] d/c. Joann Mccloud, PhD, ABPP * Myranda Steele MA - 04/25/2017 7:43 AM 3D MODELER SPEECH-LANGUAGE PATHOLOGY REHAB SPEECH DAILY NOTE SUMMARY: Patient seen for 1 hour of speech therapy this date. PLAN: Continue current therapy plan. FREQUENCY TODAY: 1x ACTIVITIES FOR THE DAY: Reviewed session from yesterday to see if patient had opportunity to reflect on organization task related to return to work; patient continues to focus on return to work intently. Per patient report, he wants to ask physician for a date; discussed that per previous report, the physicians at [facility] program will be determining the return date and encouraged patient to focus on skills needed for optimal recovery at this time Provided patient with Krames education for Right Hemisphere Brain Damage in which print had been enlarged to assist patient with reading information.Patient did not need cues to scan information to the left side of the page. Patient completed both pages by orally reading text and required x5 cues when he missed a sentence or was unable to resume reading information where he left of during discussion. Patient identified top 3 characteristics of RH injury as vision/vision neglect, difficulty with memory and learning and reasoning skills. Provided examples of each of these. Patient demonstrated good insight into situations in which these might occur but they always pertain to work; encouraged the patient to think about situations currently "in order to practice" some of these skills (difficulty with memory) such as writing information down "to clear" his mind while he increases focused attention on tasks. Patient appears resistive to use of compensatory strategies at this time even though he reports that "I know I will have to write more things down when I am at work". Patient requested copies of the information to share with his co-workers Speech Campaign Worker Goals Will improve attention skills necessary for safety in the home with: Minimal to Moderate assist Will improve skills necessary for KENNY's and safety in the home with: Minimal to Moderate assist Speech Short Term Goals Will demonstrate higher level reasoning skills for return home with: Progressing Will demonstrate mathematical problem solving skills for ADLs with: Progressing Will demonstrate visual scanning skills with: Progressing Will demonstrate functional reading skills for ADLs with: Progressing Will demonstrate memory for safety sequences for transfer and ADLs with: Progressing Will demonstrate sustained attention for task performance with: Progressing Therapist: STANTON Villalobos/CCC-NURSING CARE PARTNER Date: 04/25/2017 * Luigi Galicia DO - 04/24/2017 2:48 PM 3D MODELER Formatting of this note may be different from the original. Physical Medicine & Rehabilitation Progress Note Today's Date: 04/24/2017 Admission Date: 03/28/2017 LOS: 27 days Principal Problem: Cerebrovascular accident (CVA) due to thrombosis of right middle cerebral artery (HCC) Active Problems: Left hemiparesis (HCC) Left-sided neglect Impaired mobility and ADLs Assessment/Plan: Thomas Osei is a 41 y.o. male admitted to [facility] on 03/28/2017 with the following issues: stroke Rehabilitation Plan Rehabilitation Diagnosis: ischemic stroke Current Therapy: PT, OT, ST, neuropsych Goals: home; min-A Tentative discharge date: 05/01/17 Discharge Therapy: Day Program/Outpatient PT/OT DME: Manual wheelchair with cushion (eval completed), tub transfer bench, grab bars. -Due to patients functional limitations they require a manual wheelchair for independent mobility in the home. A therapy evaluation was completed during their inpatient rehab stay to assess the most appropriate wheelchair for the patient. He will be able to propel an ultralightweight wheelchair and cannot independently propel a standard wheelchair. Daily Functional Update: Transfers Device Sit to Stand Transfer: Assistive Device: None (04/22/2017 2:30 PM) No Data Recorded Gait Device Assist Required Distance Gait: Assistive Device: None (bioness) (04/24/2017 8:30 AM) No Data Recorded Gait Distance: 150 feet (04/24/2017 8:30 AM) Toileting Assist Required Equipment Toilet Transfer Toileting Assist: Moderate Assist (04/22/2017 9:00 AM) Toileting Equipment: Commode - bedside (04/22/2017 9:00 AM) Toilet Transfer Assist: Moderate assist (04/23/2017 7:00 AM) Dressing Lower Body LE Dressing Assist: Minimal Assist (04/23/2017 7:00 AM) Cognition - 04/18 Sustained/Alternating Attention/Visual Scanning: Single digit "+" and "-" 1) 12/20 correct, errors x5 in left field. Impulsive responding, did not pay attention to the sign. 2) 18/20 correct, max cues to attend to the sign. *Patient exhibited difficulty with adding numbers that resulted in double digits. Right MCA CVA (M2 occlusion) - cryptogenic, as per workup so far - ongoing left upper and lower extremity paresis, left facial droop, dysarthria , left neglect - LDL 118 - HbA1c- 5.2 - ECHO (TTE) - EF 55%, mild hypokinesis of basal to mid anteroseptal ji, normal atria size, no PFO - Hypercoagulable workup so far: Cardiolipin IgG :13, Cardiolipin IgM :13, Activated Protein C Resistance: 2.6, Factor 2 Mutation : negative, Negative immunophenotypic study, no evidence of paroxysmal nocturnal hemoglobinuria, BCR/ ABL1 normal - NICKO- no evidence of interarterial shunting. No thrombus. Plan: > ASA 325mg Qday > Atorvastatin 40mg Qday > Fluoxetine 20mgQday for motor recovery > Hematology follow up (Dr. Esparza 04/17/17) > Neurology stroke clinic follow up Left sided hemiplegia Left neglect Impaired mobility and ADLs - PT/OT - on fluoxetine for motor recovery after stroke Muscle spasms Spasticity LLE shooting pain - baclofen 20mg TID - gabapentin 300mg qhs - Restart robaxin PRN 2/2 persistent spasms Cognitive impairment - NURSING CARE PARTNER cognitive remediation UTI - resolved Urinary retention - resolved - likely related to UTI, last cath 03/27 > s/p cipro, ended 04/04 > D/c doxazosin 04/10; Repeat BVI's 04/15 w/o retention Back Pain - acute on chronic > Lidocaine patches Pain Management: Scheduled tylenol 1g TID. Oxycodone, lidocaine, robaxin PRN . Skin: There are no pressure sores currently. Bowel: continent of bowel, constipated, may need enema today Bladder: continent of bladder, most recent BVIs without concern for urinary retention Nutrition: Current diet: regular Mental Health: consult neuropsychology to provide support / counseling DVT Prophylaxis: Regulo Galicia, DO Subjective No acute events overnight. Pt seen in gym about to trial E-stim to help with dorsiflexion to his L foot. Pt informed that his d/c pushed back to 05/01 due to his great progress shown in therapies. Pt continued to complain of spasm in his L ankle but stated that they were tolerable. No other concerns when seen. Objective Vital Signs: Last Filed Vital Signs: 24 Hour Range BP: 134/85 (04/24 599) Temp: 36.7 C (98 F) (04/24 599) Pulse: 63 (04/24 599) Respirations: 18 PER MINUTE (04/24 599) SpO2: 97 % (04/24 599) O2 Delivery: None (Room Air) (04/24 599) BP: (132-134)/(85-87) Temp: [36.7 C (98 F)-36.8 C (98.2 F)] Pulse: [59-63] Respirations: [17 PER MINUTE-18 PER MINUTE] SpO2: [97 %] O2 Delivery: None (Room Air) Vitals: 04/21/17 0624 04/22/17 0606 04/23/17 0547 Weight: 73 kg (160 lb 15 oz) 72.8 kg (160 lb 7.9 oz) 73.1 kg (161 lb 2.5 oz) Intake/Output Summary: (Last 24 hours) Intake/Output Summary (Last 24 hours) at 04/24/17 1448 Last data filed at 04/24/17 1300 Gross per 24 hour Intake 600 ml Output 950 ml Net -350 ml Stool Occurrence: 1 Oral Diet Order: Regular Last BM Date: 04/23/17 Lab: No results found for this visit on 03/28/17 (from the past 24 hour(s)). Physical Exam VS: BP 134/85 (BP Source: Arm, Right) | Pulse 63 | Temp 36.7 C (98 F) | Ht 188 cm (74.02") | Wt 73.1 kg (161 lb 2.5 oz) | SpO2 97% | BMI 20.68 kg/m2 General: Patient appears stated age, in no acute distress, seen resting in bed. HEENT: Normocephalic, atraumatic Neck: full AROM with right gaze preference Cardiovascular: Well perfused Pulmonary: Unlabored respirations Extremities: No cyanosis, clubbing, or edema Skin: Warm and dry Psychiatric: Appropriate mood and affect Musculoskeletal: No atrophy Neurologic: Mental Status: alert Cognition: normal processing speed for casual conversation Speech: mildly dysarthric but clear Cranial Nerves: L facial droop, L neglect improving - needs some cues to attend left - improving Motor: Right sided strength 5/5, Left sided strength 0/5 in all myotomes Gait: able to walk with x1 assistance with therapies. Eversion of L foot after he gets tired Therapy Notes & Labs Reviewed. Luigi Galicia DO Associated attestation - Geovanny Holloway MD - 04/24/2017 9:34 PM 3D MODELER Formatting of this note may be different from the original. ATTESTATION I personally observed the resident performing the E/M, discussed case with resident, and concur with resident documentation of history, physical assessment and treatment plan unless otherwise noted. Labs and vitals reviewed and stable. Patient continues to have motor return positive affecting gait. Gait mechanics respond well to left lower limb e-stim supporting ankle dorsiflexion. Staff name: Geovanny Holloway MD Date: 04/24/2017 * Myranda Steele MA - 04/24/2017 12:32 PM 3D MODELER SPEECH-LANGUAGE PATHOLOGY REHAB SPEECH DAILY NOTE SUMMARY: Patient was seen for 1 hour of speech therapy this date in ST office. PLAN: Continue current therapy plan. FREQUENCY TODAY: 1x ACTIVITIES FOR THE DAY: Patient reported that he discussed with medical providers re: return to work and when that date might be. Per patient report, he was told that patient's physician at [facility] would make that determination. Patient was very interested in when he is able to return to work. In effort to assist with task for organization of steps involved with return to work, the following information was formulated by patient with focus on current challenges to return to work at this time 1. Transportation: it is likely patient may not be driving at the time he may be returning to work and discussed how he would get to work; per his report, he and drive to work together; patient reported that he might have difficulty with getting the door open to his work and would need to have assistance with that; this is assuming that he may still be in a wheel chair 2. When he gets into work , there is a ramp in which he can get to his office; once he is in his office, he likely would have difficulty getting access to his computer on his desk as it "is a tight fit"; discussed ways office furniture may be re-arranged and what type of assistance he might need to accomplish this 3. Discussed if patient might need assistance with toileting needs depending upon how functional transfers are at that time and how he might access the restroom at work 4. Discussed that he might want to consider initiating a schedule for 1/2 days at the beginning as he may not have full return of endurance and stamina; patient is used to working 12 hour days and not taking lunch or snacks; discussed that he might want to consider a healthier lifestyle change including lunch and snacks to have maximal energy 5. Patient stated "I think I am going to have to help people understand where I am now"; this is considered very insightful by this patient. He reported that staff are used to "popping in my office and telling me something and I was able to remember everything and follow-up"; discussed what other ways he could manage this and he said to keep a calendar with requests by staff and writing everything down; this was positively reinforced as this is an excellent strategy to recall information and then not have to "keep everything" in his head. Discussed how he might communicate with staff about the changes and he discussed either by e-mail and/or by personal contact or both; also he discussed that staff is used to scanning information to him via computer but we also discussed that he may have to flag some of this information as he may be getting lots of information to sort through; patient reported that he is concerned about his lack of attention to detail at this time; 6. Discussed using a reference point on his computer of a bright post-it along the left rim of the computer screen to encourage him to scan to the left side consistently; he discussed that he could use bold parameters on spread sheet to highlight items on the left side 7. Patient also discussed importance of "having patience with myself" and others "having patience" with me; this appears to be challenging for this patient 8. Overall focus of discussion was "you want to be successful when you return to work so you may have to do things differently than you did previously" so you can be successful Patient appreciated the discussion and beginning to formulate a plan to return to work Speech Care Home Goals Will improve attention skills necessary for safety in the home with: Minimal to Moderate assist Will improve skills necessary for KENNY's and safety in the home with: Minimal to Moderate assist Speech Short Term Goals Will demonstrate higher level reasoning skills for return home with: Progressing Will demonstrate mathematical problem solving skills for ADLs with: Progressing Will demonstrate visual scanning skills with: Progressing Will demonstrate functional reading skills for ADLs with: Progressing Will demonstrate memory for safety sequences for transfer and ADLs with: Progressing Will demonstrate sustained attention for task performance with: Progressing Therapist: STANTON Villalobos/CCC-NURSING CARE PARTNER Date: 04/24/2017 * Julia Chakraborty - 04/24/2017 9:15 AM 3D MODELER 0915 Attempted follow-up with pt for follow-up; however, pt was in gym for therapies. Will attempt to follow-up with pt at a later time. Julia Chakraborty, PhD Neurorehabilitation Psychology Postdoctoral Fellow Pager: [phone] * Geovanny Holloway MD - 04/23/2017 2:07 PM 3D MODELER Formatting of this note may be different from the original. ATTESTATION I personally observed the resident performing the E/M, discussed case with resident, and concur with resident documentation of history, physical assessment and treatment plan unless otherwise noted. -Labs and vitals reviewed and stable. -Patient observed during therapy with voluntary dynamic activation of hip flexion during gait activities. Patient is making significant functional gains and stay will be extended to 05/01 due to these gains. Staff name: Geovanny Holloway MD Date: 04/23/2017 Physical Medicine & Rehabilitation Progress Note Today's Date: 04/23/2017 Admission Date: 03/28/2017 LOS: 26 days Principal Problem: Cerebrovascular accident (CVA) due to thrombosis of right middle cerebral artery (HCC) Active Problems: Left hemiparesis (HCC) Left-sided neglect Impaired mobility and ADLs Assessment/Plan: Thoams Osei is a 41 y.o. male admitted to [facility] on 03/28/2017 with the following issues: stroke Rehabilitation Plan Rehabilitation Diagnosis: ischemic stroke Current Therapy: PT, OT, ST, neuropsych Goals: home; min-A Tentative discharge date: 04/26/17 Discharge Therapy: Day Program/Outpatient PT/OT DME: Shower chair, wheelchair -Due to patients functional limitations they require a manual wheelchair for independent mobility in the home. A therapy evaluation was completed during their inpatient rehab stay to assess the most appropriate wheelchair for the patient. He will be able to propel an ultralightweight wheelchair and cannot independently propel a standard wheelchair. Daily Functional Update: Transfers Device Sit to Stand Transfer: Assistive Device: None (04/22/2017 2:30 PM) No Data Recorded Gait Device Assist Required Distance Gait: Assistive Device: None (Murray wrap for ankle) (04/22/2017 2:30 PM) No Data Recorded Gait Distance: 200 feet (04/22/2017 2:30 PM) Toileting Assist Required Equipment Toilet Transfer Toileting Assist: Moderate Assist (04/22/2017 9:00 AM) Toileting Equipment: Commode - bedside (04/22/2017 9:00 AM) Toilet Transfer Assist: Moderate assist (04/22/2017 9:00 AM) Dressing Lower Body LE Dressing Assist: Minimal Assist (04/19/2017 7:00 AM) Cognition - 04/18 Sustained/Alternating Attention/Visual Scanning: Single digit "+" and "-" 1) 12/20 correct, errors x5 in left field. Impulsive responding, did not pay attention to the sign. 2) 18/20 correct, max cues to attend to the sign. *Patient exhibited difficulty with adding numbers that resulted in double digits. Right MCA CVA (M2 occlusion) - cryptogenic, as per workup so far - ongoing left upper and lower extremity paresis, left facial droop, dysarthria , left neglect - LDL 118 - HbA1c- 5.2 - ECHO (TTE) - EF 55%, mild hypokinesis of basal to mid anteroseptal ji, normal atria size, no PFO - Hypercoagulable workup so far: Cardiolipin IgG :13, Cardiolipin IgM :13, Activated Protein C Resistance: 2.6, Factor 2 Mutation : negative, Negative immunophenotypic study, no evidence of paroxysmal nocturnal hemoglobinuria, BCR/ ABL1 normal - NICKO- no evidence of interarterial shunting. No thrombus. Plan: > ASA 325mg Qday > Atorvastatin 40mg Qday > Fluoxetine 20mgQday for motor recovery > Hematology follow up (Dr. Esparza 04/17/17) > Neurology stroke clinic follow up Left sided hemiplegia Left neglect Impaired mobility and ADLs - PT/OT - on fluoxetine for motor recovery after stroke Muscle spasms Spasticity LLE shooting pain - baclofen 20mg TID - gabapentin 300mg qhs - Restart robaxin PRN 2/2 persistent spasms Cognitive impairment - NURSING CARE PARTNER cognitive remediation UTI - resolved Urinary retention - resolved - likely related to UTI, last cath 03/27 > s/p cipro, ended 04/04 > D/c doxazosin 04/10; Repeat BVI's 04/15 w/o retention Back Pain - acute on chronic > Lidocaine patches > Naproxen Sodium Pain Management: Scheduled tylenol 1g TID. Oxycodone, lidocaine, robaxin PRN . Skin: There are no pressure sores currently. Bowel: continent of bowel, constipated, may need enema today Bladder: continent of bladder, most recent BVIs without concern for urinary retention Nutrition: Current diet: regular Mental Health: consult neuropsychology to provide support / counseling DVT Prophylaxis: Regulo Galicia, DO Subjective No issues overnight. Pt seen in gym working with therapies on gait when seen on rounds. Pt able to ambulate with x1 helper, per therapies he is able to activate his LLE. Pt continued to endorse pain/spasms in his L shoulder and L ankle but overall controlled on current regimen. No other complaints when seen. Objective Vital Signs: Last Filed Vital Signs: 24 Hour Range BP: 135/89 (04/23 546) Temp: 36.6 C (97.9 F) (04/23 546) Pulse: 60 (04/23 546) Respirations: 18 PER MINUTE (04/23 546) SpO2: 96 % (04/23 546) O2 Delivery: None (Room Air) (04/23 546) BP: (135)/(89) Temp: [36.6 C (97.9 F)] Pulse: [60] Respirations: [18 PER MINUTE] SpO2: [96 %] O2 Delivery: None (Room Air) Intensity Pain Scale 0-10 (Pain 1): 6 (04/23/17 1200) Vitals: 04/21/17 0624 04/22/17 0606 04/23/17 0547 Weight: 73 kg (160 lb 15 oz) 72.8 kg (160 lb 7.9 oz) 73.1 kg (161 lb 2.5 oz) Intake/Output Summary: (Last 24 hours) Intake/Output Summary (Last 24 hours) at 04/23/17 1407 Last data filed at 04/23/17 1200 Gross per 24 hour Intake 680 ml Output 500 ml Net 180 ml Stool Occurrence: 1 Oral Diet Order: Regular Last BM Date: 04/23/17 Lab: No results found for this visit on 03/28/17 (from the past 24 hour(s)). Physical Exam VS: BP 135/89 (BP Source: Arm, Right) | Pulse 60 | Temp 36.6 C (97.9 F) | Ht 188 cm (74.02") | Wt 73.1 kg (161 lb 2.5 oz) | SpO2 96% | BMI 20.68 kg/m2 General: Patient appears stated age, in no acute distress, seen resting in bed. HEENT: Normocephalic, atraumatic Neck: full AROM with right gaze preference Cardiovascular: Well perfused Pulmonary: Unlabored respirations Extremities: No cyanosis, clubbing, or edema Skin: Warm and dry Psychiatric: Appropriate mood and affect Musculoskeletal: No atrophy Neurologic: Mental Status: alert Cognition: normal processing speed for casual conversation Speech: mildly dysarthric but clear Cranial Nerves: L facial droop, L neglect improving - needs some cues to attend left - improving Motor: Right sided strength 5/5, Left sided strength 0/5 in all myotomes Clonus at ankle on left side Therapy Notes & Labs Reviewed. DO Tess Ferrari Candice, MA - 04/23/2017 8:54 AM 3D MODELER SPEECH-LANGUAGE PATHOLOGY REHAB SPEECH DAILY NOTE SUMMARY: Patient was seen for 1 hour of speech therapy this date. Education continued with patient regarding R hemisphere dysfunction. PLAN: Continue current therapy plan. 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 FREQUENCY TODAY: 1x ACTIVITIES FOR THE DAY: Reading short news article: requested that patient read as much as needed with goal of answering 5 questions without looking back at the article; patient read x1 (1 minute 10 seconds) and did refer several times to the article; 80% accy 2/ 2 to patient not answering 1 of the questions; asked patient what he might do differently next time and he reported "I was not interested in the topic"; discussed that focus is on using strategies/techniques to generalize to work tasks (reading carefully and slowly and repeating if necessary, focusing on lima concepts) Functional Reading from [facility] [employer] luz: 90% accy and mild cues on level 1 task; increased difficulty to level 2 and completed with 60% accy; reviewed how to improve and discussed that perhaps reading questions aloud might be of help Patient appeared very stressed and reported that he is a type A personality and he is contacting staff at work to see "how things are going"; he reported that his boss requested that he not do this; reinforced importance of patient focusing on his recovery at this time which appears to be difficult for him to do Speech Campaign Worker Goals Will improve attention skills necessary for safety in the home with: Minimal to Moderate assist Will improve skills necessary for KENNY's and safety in the home with: Minimal to Moderate assist Speech Short Term Goals Will demonstrate higher level reasoning skills for return home with: Progressing Will demonstrate mathematical problem solving skills for ADLs with: Progressing Will demonstrate visual scanning skills with: Progressing Will demonstrate functional reading skills for ADLs with: Progressing Will demonstrate memory for safety sequences for transfer and ADLs with: Progressing Will demonstrate sustained attention for task performance with: Progressing Therapist: STANTON Villalobos/MAE-NURSING CARE PARTNER Date: 04/23/2017 * Lindsey Frey - 04/22/2017 4:26 PM 3D MODELER SPEECH-LANGUAGE PATHOLOGY REHAB SPEECH DAILY NOTE SUMMARY: Patient was seen for two 30 min therapy sessions. Education with patient regarding right hemisphere dysfunction. 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 FREQUENCY TODAY: 2 ACTIVITIES FOR THE DAY: Pt reports difficulty with [employer] Sl[employer] Expander Luz: encouraged pt to explore luz this evening and then provide NURSING CARE PARTNER w/ questions tomorrow. Additionally provided education on possibly utilizing [id number] that should be available on his phone. Per previous NURSING CARE PARTNER note, pt was able to utilize luz to make a call, text, and access his calendar. Functional math from constant therapy luz: 44% with moderate cues: pt demonstrated difficulty w/ attention & reasoning, along with self-monitoring of errors/typing on calculator Reading short news article w/ questions: Pt required moderate cues to read full paragraph, initially was unable to answer 0/5 questions on first article, however with second reading and use of article, was able to answer 5/5, pt answered 5/5 questions correctly for second article with article available for reference. Speech Campaign Worker Goals Will improve attention skills necessary for safety in the home with: Minimal to Moderate assist Will improve skills necessary for KENNY's and safety in the home with: Minimal to Moderate assist Speech Short Term Goals Will demonstrate higher level reasoning skills for return home with: Progressing Will demonstrate mathematical problem solving skills for ADLs with: Progressing Will demonstrate visual scanning skills with: Progressing Will demonstrate functional reading skills for ADLs with: Progressing Will demonstrate memory for safety sequences for transfer and ADLs with: Progressing Will demonstrate sustained attention for task performance with: Progressing Therapist: Lindsey Frey M.A. CF-NURSING CARE PARTNER Pager: [phone] Weekend Acute Pager: [phone] Date: 04/22/2016 * Елена Looney MD - 04/22/2017 8:47 AM 3D MODELER Formatting of this note may be different from the original. Physical Medicine & Rehabilitation Progress Note Today's Date: 04/22/2017 Admission Date: 03/28/2017 LOS: 25 days Principal Problem: Cerebrovascular accident (CVA) due to thrombosis of right middle cerebral artery (HCC) Active Problems: Left hemiparesis (HCC) Left-sided neglect Impaired mobility and ADLs Assessment/Plan: Thomas Osei is a 41 y.o. male admitted to [facility] on 03/28/2017 with the following issues: stroke Rehabilitation Plan Rehabilitation Diagnosis: ischemic stroke Current Therapy: PT, OT, ST, neuropsych Goals: home; min-A Tentative discharge date: 04/26/17 Discharge Therapy: Day Program/Outpatient PT/OT DME: Shower chair, wheelchair -Due to patients functional limitations they require a manual wheelchair for independent mobility in the home. A therapy evaluation was completed during their inpatient rehab stay to assess the most appropriate wheelchair for the patient. He will be able to propel an ultralightweight wheelchair and cannot independently propel a standard wheelchair. Daily Functional Update: Transfers Device Sit to Stand Transfer: Assistive Device: None (04/21/2017 12:00 PM) No Data Recorded Gait Device Assist Required Distance Gait: Assistive Device: None (Murray wrap to assist dorsiflexion) (04/19/2017 9:15 AM) No Data Recorded Gait Distance: 60 feet (x1, 50'x1) (04/21/2017 12:00 PM) Toileting Assist Required Equipment Toilet Transfer Toileting Assist: Maximum Assist (04/21/2017 10:00 AM) Toileting Equipment: Commode - bedside (04/21/2017 10:00 AM) Toilet Transfer Assist: Moderate assist (04/21/2017 10:00 AM) Dressing Lower Body LE Dressing Assist: Minimal Assist (04/19/2017 7:00 AM) Cognition - 04/18 Sustained/Alternating Attention/Visual Scanning: Single digit "+" and "-" 1) 03/27 correct, errors x5 in left field. Impulsive responding, did not pay attention to the sign. 2) correct, max cues to attend to the sign. *Patient exhibited difficulty with adding numbers that resulted in double digits. Right MCA CVA (M2 occlusion) - cryptogenic, as per workup so far - ongoing left upper and lower extremity paresis, left facial droop, dysarthria , left neglect - LDL 118 - HbA1c- 5.2 - ECHO (TTE) - EF 55%, mild hypokinesis of basal to mid anteroseptal ji, normal atria size, no PFO - Hypercoagulable workup so far: Cardiolipin IgG :13, Cardiolipin IgM :13, Activated Protein C Resistance: 2.6, Factor 2 Mutation : negative, Negative immunophenotypic study, no evidence of paroxysmal nocturnal hemoglobinuria, BCR/ ABL1 normal - NICKO- no evidence of interarterial shunting. No thrombus. Plan: > ASA 325mg Qday > Atorvastatin 40mg Qday > Fluoxetine 20mgQday for motor recovery > Hematology follow up (Dr. Esparza 04/17/17) > Neurology stroke clinic follow up Left sided hemiplegia Left neglect Impaired mobility and ADLs - PT/OT - on fluoxetine for motor recovery after stroke Muscle spasms Spasticity LLE shooting pain - baclofen 20mg TID - gabapentin 300mg qhs - 04/16 D/c robaxin (hasn't been using) Cognitive impairment - NURSING CARE PARTNER cognitive remediation UTI - resolved Urinary retention - resolved - likely related to UTI, last cath 03/27 > s/p cipro, ended 04/04 > D/c doxazosin 04/10; Repeat BVI's 04/15 w/o retention Back Pain - acute on chronic > Lidocaine patches > Naproxen Sodium Pain Management: Scheduled tylenol 1g TID. Oxycodone, robaxin, lidocaine patch , robaxin, naproxen all are prn Skin: There are no pressure sores currently. Bowel: continent of bowel, constipated, may need enema today Bladder: continent of bladder, most recent BVIs without concern for urinary retention Nutrition: Current diet: regular Mental Health: consult neuropsychology to provide support / counseling DVT Prophylaxis: Regulo Looney MD Saturday: No changes. Saturday: add lidocaine patch to L shoulder. D/c docusate and decreased senna to 1 tablet. Saturday: no changes. Ankle spasms overnight. Subjective Patient seen in his room this morning eating breakfast. Reports lidoderm patch improved pain yesterday, as well as massage with PT. Reports spasms in his ankle this morning that improved with stretching. Last BM 04/20. Objective Vital Signs: Last Filed Vital Signs: 24 Hour Range BP: 130/71 (04/22 605) Temp: 36.6 C (97.8 F) (04/22 605) Pulse: 87 (04/22 605) Respirations: 18 PER MINUTE (04/22 605) SpO2: 97 % (04/22 605) O2 Delivery: None (Room Air) (04/22 605) BP: (130-134)/(68-71) Temp: [36.6 C (97.8 F)-36.7 C (98.1 F)] Pulse: [58-87] Respirations: [18 PER MINUTE] SpO2: [97 %-98 %] O2 Delivery: None (Room Air) Vitals: 04/20/17 0623 04/21/17 0624 04/22/17 0606 Weight: 72.2 kg (159 lb 2.8 oz) 73 kg (160 lb 15 oz) 72.8 kg (160 lb 7.9 oz) Intake/Output Summary: (Last 24 hours) Intake/Output Summary (Last 24 hours) at 04/22/17 0847 Last data filed at 04/22/17 0607 Gross per 24 hour Intake 120 ml Output 650 ml Net -530 ml Stool Occurrence: 1 Oral Diet Order: Regular Last BM Date: 04/20/17 Lab: No results found for this visit on 03/28/17 (from the past 24 hour(s)). Physical Exam VS: BP 130/71 (BP Source: Arm, Right) | Pulse 87 | Temp 36.6 C (97.8 F) | Ht 188 cm (74.02") | Wt 72.8 kg (160 lb 7.9 oz) | SpO2 97% | BMI 20.6 kg/m2 General: Patient appears stated age, in no acute distress, seen resting in bed. HEENT: Normocephalic, atraumatic Neck: full AROM with right gaze preference Cardiovascular: Well perfused Pulmonary: Unlabored respirations Extremities: No cyanosis, clubbing, or edema Skin: Warm and dry Psychiatric: Appropriate mood and affect Musculoskeletal: No atrophy Neurologic: Mental Status: alert Cognition: normal processing speed for casual conversation Speech: mildly dysarthric but clear Cranial Nerves: L facial droop, L neglect improving - needs some cues to attend left - improving Motor: Right sided strength 5/5, Left sided strength 0/5 in all myotomes Clonus at ankle on left side Therapy Notes & Labs Reviewed. Елена Looney MD Associated attestation - Geovanny Holloway MD - 04/22/2017 6:00 PM 3D MODELER Formatting of this note may be different from the original. ATTESTATION I personally performed the lima portions of the E/M visit, discussed case with resident and concur with resident documentation of history, physical exam, assessment, and treatment plan unless otherwise noted. PT manual therapy helped left shoulder pain. -Exam: stable left hemiplegia, ttp left rhomboids and trap -Lab and vitals reviewed and stable. -Patient remains medically and functionally stable for continued rehabilitation participation. Staff name: Geovanny Holloway MD Date: 04/22/2017 * Zechariah uGtierrez - 04/21/2017 4:19 PM 3D MODELER PHYSICAL THERAPY MOBILITY NOTE Patient participated in supplemental activity with a rehabilitation counsellor as directed by a rehabilitation therapist. Aide: Zechariah Gutierrez Date: 04/21/2017 * Kortney Ruby - 04/21/2017 12:52 PM 3D MODELER Activity Therapy At 11:55 patient participated in a pet therapy session with a volunteer, volunteers dog and this activity therapist. * Елена Looney MD - 04/21/2017 9:13 AM 3D MODELER Formatting of this note may be different from the original. Physical Medicine & Rehabilitation Progress Note Today's Date: 04/21/2017 Admission Date: 03/28/2017 LOS: 24 days Principal Problem: Cerebrovascular accident (CVA) due to thrombosis of right middle cerebral artery (HCC) Active Problems: Left hemiparesis (HCC) Left-sided neglect Impaired mobility and ADLs Assessment/Plan: Thomas Osei is a 41 y.o. male admitted to [facility] on 03/28/2017 with the following issues: stroke Rehabilitation Plan Rehabilitation Diagnosis: ischemic stroke Current Therapy: PT, OT, ST, neuropsych Goals: home; min-A Tentative discharge date: 04/26/17 Discharge Therapy: Day Program/Outpatient PT/OT DME: Shower chair, wheelchair -Due to patients functional limitations they require a manual wheelchair for independent mobility in the home. A therapy evaluation was completed during their inpatient rehab stay to assess the most appropriate wheelchair for the patient. He will be able to propel an ultralightweight wheelchair and cannot independently propel a standard wheelchair. Daily Functional Update: Transfers Device Sit to Stand Transfer: Assistive Device: None (04/19/2017 9:15 AM) No Data Recorded Gait Device Assist Required Distance Gait: Assistive Device: None (Murray wrap to assist dorsiflexion) (04/19/2017 9:15 AM) No Data Recorded Gait Distance: 150 feet (04/19/2017 9:15 AM) Toileting Assist Required Equipment Toilet Transfer Toileting Assist: Minimal Assist (04/19/2017 7:00 AM) No Data Recorded Toilet Transfer Assist: Maximum assist (04/19/2017 7:00 AM) Dressing Lower Body LE Dressing Assist: Minimal Assist (04/19/2017 7:00 AM) Cognition - 04/18 Sustained/Alternating Attention/Visual Scanning: Single digit "+" and "-" 1) 03/27 correct, errors x5 in left field. Impulsive responding, did not pay attention to the sign. 2) 18/20 correct, max cues to attend to the sign. *Patient exhibited difficulty with adding numbers that resulted in double digits. Right MCA CVA (M2 occlusion) - cryptogenic, as per workup so far - ongoing left upper and lower extremity paresis, left facial droop, dysarthria , left neglect - LDL 118 - HbA1c- 5.2 - ECHO (TTE) - EF 55%, mild hypokinesis of basal to mid anteroseptal ji, normal atria size, no PFO - Hypercoagulable workup so far: Cardiolipin IgG :13, Cardiolipin IgM :13, Activated Protein C Resistance: 2.6, Factor 2 Mutation : negative, Negative immunophenotypic study, no evidence of paroxysmal nocturnal hemoglobinuria, BCR/ ABL1 normal - NICKO- no evidence of interarterial shunting. No thrombus. Plan: > ASA 325mg Qday > Atorvastatin 40mg Qday > Fluoxetine 20mgQday for motor recovery > Hematology follow up (Dr. Esparza 04/17/17) > Neurology stroke clinic follow up Left sided hemiplegia Left neglect Impaired mobility and ADLs - PT/OT - on fluoxetine for motor recovery after stroke Muscle spasms Spasticity LLE shooting pain - baclofen 20mg TID - gabapentin 300mg qhs - 04/16 D/c robaxin (hasn't been using) Cognitive impairment - NURSING CARE PARTNER cognitive remediation UTI - resolved Urinary retention - resolved - likely related to UTI, last cath 03/27 > s/p cipro, ended 04/04 > D/c doxazosin 04/10; Repeat BVI's 04/15 w/o retention Back Pain - acute on chronic > Lidocaine patches > Naproxen Sodium Pain Management: Scheduled tylenol 1g TID. Oxycodone, robaxin, lidocaine patch , robaxin, naproxen all are prn Skin: There are no pressure sores currently. Bowel: continent of bowel, constipated, may need enema today Bladder: continent of bladder, most recent BVIs without concern for urinary retention Nutrition: Current diet: regular Mental Health: consult neuropsychology to provide support / counseling DVT Prophylaxis: Regulo Looney MD Saturday: No changes. Saturday: add lidocaine patch to L shoulder. D/c docusate and decreased senna to 1 tablet. Subjective Patient seen in the weber this morning with therapy. Reports increased shoulder pain, says it is a chronic issue. Agrees to lidocaine patch. Reported diarrhea and asked to decrease bowel regimen. Objective Vital Signs: Last Filed Vital Signs: 24 Hour Range BP: 126/85 (04/21 623) Temp: 36.3 C (97.3 F) (04/21 623) Pulse: 63 (04/21 623) Respirations: 18 PER MINUTE (04/21 623) SpO2: 97 % (04/21 623) O2 Delivery: None (Room Air) (04/21 623) BP: (126-133)/(84-85) Temp: [36.3 C (97.3 F)-36.9 C (98.5 F)] Pulse: [60-63] Respirations: [18 PER MINUTE] SpO2: [97 %] O2 Delivery: None (Room Air) Vitals: 04/19/17 0615 04/20/17 0623 04/21/17 0624 Weight: 75.2 kg (165 lb 12.6 oz) 72.2 kg (159 lb 2.8 oz) 73 kg (160 lb 15 oz) Intake/Output Summary: (Last 24 hours) Intake/Output Summary (Last 24 hours) at 04/21/17 0913 Last data filed at 04/20/17 2225 Gross per 24 hour Intake 0 ml Output 200 ml Net -200 ml Stool Occurrence: 1 Oral Diet Order: Regular Last BM Date: 04/20/17 Lab: No results found for this visit on 03/28/17 (from the past 24 hour(s)). Physical Exam VS: BP 126/85 (BP Source: Arm, Right) | Pulse 63 | Temp 36.3 C (97.3 F) | Ht 188 cm (74.02") | Wt 73 kg (160 lb 15 oz) | SpO2 97% | BMI 20.65 kg/m2 General: Patient appears stated age, in no acute distress, seen resting in bed. HEENT: Normocephalic, atraumatic Neck: full AROM with right gaze preference Cardiovascular: Well perfused Pulmonary: Unlabored respirations Extremities: No cyanosis, clubbing, or edema Skin: Warm and dry Psychiatric: Appropriate mood and affect Musculoskeletal: No atrophy Neurologic: Mental Status: alert Cognition: normal processing speed for casual conversation Speech: mildly dysarthric but clear Cranial Nerves: L facial droop, L neglect improving - needs some cues to attend left - improving Motor: Right sided strength 5/5, Left sided strength 0/5 in all myotomes Clonus at ankle on left side Therapy Notes & Labs Reviewed. Елена Looney MD Associated attestation - Geovanny Holloway MD - 04/21/2017 9:52 PM 3D MODELER Formatting of this note may be different from the original. ATTESTATION I personally performed the lima portions of the E/M visit, discussed case with resident and concur with resident documentation of history, physical exam, assessment, and treatment plan unless otherwise noted. Complains of left shoulder pain. Would like his stool softeners decreased. -Exam: left hemiplegia stable, left shoulder subluxation -Lab and vitals reviewed and stable. -Start lidocaine patch for left shoulder. -Patient remains medically and functionally stable for continued rehabilitation participation. Staff name: Geovanny Holloway MD Date: 04/21/2017 * Kortney Ruby - 04/20/2017 5:24 PM 3D MODELER Activity Therapy From 13:30 to 14:30 patient attended workshop group today with this activity therapist and other patients to complete a simple furnature assembly task. * Zechariah Gutierrez - 04/20/2017 9:07 AM 3D MODELER PHYSICAL THERAPY MOBILITY NOTE Patient participated in supplemental activity with a rehabilitation counsellor as directed by a rehabilitation therapist. Aide: Zechariah Gutierrez Date: 04/20/2017 * Елена Looney MD - 04/20/2017 8:48 AM 3D MODELER Formatting of this note may be different from the original. Physical Medicine & Rehabilitation Progress Note Today's Date: 04/20/2017 Admission Date: 03/28/2017 LOS: 23 days Principal Problem: Cerebrovascular accident (CVA) due to thrombosis of right middle cerebral artery (HCC) Active Problems: Left hemiparesis (HCC) Left-sided neglect Impaired mobility and ADLs Assessment/Plan: Thomas Osei is a 41 y.o. male admitted to [facility] on 03/28/2017 with the following issues: stroke Rehabilitation Plan Rehabilitation Diagnosis: ischemic stroke Current Therapy: PT, OT, ST, neuropsych Goals: home; min-A Tentative discharge date: 04/26/17 Discharge Therapy: Day Program/Outpatient PT/OT DME: Shower chair, wheelchair -Due to patients functional limitations they require a manual wheelchair for independent mobility in the home. A therapy evaluation was completed during their inpatient rehab stay to assess the most appropriate wheelchair for the patient. He will be able to propel an ultralightweight wheelchair and cannot independently propel a standard wheelchair. Daily Functional Update: Transfers Device Sit to Stand Transfer: Assistive Device: None (04/19/2017 9:15 AM) No Data Recorded Gait Device Assist Required Distance Gait: Assistive Device: None (Murray wrap to assist dorsiflexion) (04/19/2017 9:15 AM) No Data Recorded Gait Distance: 150 feet (04/19/2017 9:15 AM) Toileting Assist Required Equipment Toilet Transfer Toileting Assist: Minimal Assist (04/19/2017 7:00 AM) No Data Recorded Toilet Transfer Assist: Maximum assist (04/19/2017 7:00 AM) Dressing Lower Body LE Dressing Assist: Minimal Assist (04/19/2017 7:00 AM) Cognition - 04/18 Sustained/Alternating Attention/Visual Scanning: Single digit "+" and "-" 1) 03/27 correct, errors x5 in left field. Impulsive responding, did not pay attention to the sign. 2) correct, max cues to attend to the sign. *Patient exhibited difficulty with adding numbers that resulted in double digits. Right MCA CVA (M2 occlusion) - cryptogenic, as per workup so far - ongoing left upper and lower extremity paresis, left facial droop, dysarthria , left neglect - LDL 118 - HbA1c- 5.2 - ECHO (TTE) - EF 55%, mild hypokinesis of basal to mid anteroseptal ji, normal atria size, no PFO - Hypercoagulable workup so far: Cardiolipin IgG :13, Cardiolipin IgM :13, Activated Protein C Resistance: 2.6, Factor 2 Mutation : negative, Negative immunophenotypic study, no evidence of paroxysmal nocturnal hemoglobinuria, BCR/ ABL1 normal - NICKO- no evidence of interarterial shunting. No thrombus. Plan: > ASA 325mg Qday > Atorvastatin 40mg Qday > Fluoxetine 20mgQday for motor recovery > Hematology follow up (Dr. Esparza 04/17/17) > Neurology stroke clinic follow up Left sided hemiplegia Left neglect Impaired mobility and ADLs - PT/OT - on fluoxetine for motor recovery after stroke Muscle spasms Spasticity LLE shooting pain - baclofen 20mg TID - gabapentin 300mg qhs - 04/16 D/c robaxin (hasn't been using) Cognitive impairment - NURSING CARE PARTNER cognitive remediation UTI - resolved Urinary retention - resolved - likely related to UTI, last cath 03/27 > s/p cipro, ended 04/04 > D/c doxazosin 04/10; Repeat BVI's 04/15 w/o retention Back Pain - acute on chronic > Lidocaine patches > Naproxen Sodium Pain Management: Scheduled tylenol 1g TID. Oxycodone, robaxin, lidocaine patch , robaxin, naproxen all are prn Skin: There are no pressure sores currently. Bowel: continent of bowel, constipated, may need enema today Bladder: continent of bladder, most recent BVIs without concern for urinary retention Nutrition: Current diet: regular Mental Health: consult neuropsychology to provide support / counseling DVT Prophylaxis: Regulo Looney MD Saturday: No changes. Subjective Patient seen in bed this AM. No acute overnight events. Denies nausea, vomiting , diarrhea, constipation, CP, or SOB. Discussed baclofen and recommended that he stay on the amount he has. Objective Vital Signs: Last Filed Vital Signs: 24 Hour Range BP: 129/79 (04/20 631) Temp: 36.4 C (97.6 F) (04/20 631) Pulse: 55 (04/20 631) Respirations: 18 PER MINUTE (04/20 631) SpO2: 97 % (04/20 631) O2 Delivery: None (Room Air) (04/20 631) BP: (129)/(79) Temp: [36.4 C (97.6 F)] Pulse: [55] Respirations: [18 PER MINUTE] SpO2: [97 %] O2 Delivery: None (Room Air) Vitals: 04/18/17 0500 04/19/17 0615 04/20/17 0623 Weight: 75.4 kg (166 lb 3.2 oz) 75.2 kg (165 lb 12.6 oz) 72.2 kg (159 lb 2.8 oz ) Intake/Output Summary: (Last 24 hours) Intake/Output Summary (Last 24 hours) at 04/20/17 0848 Last data filed at 04/19/17 1300 Gross per 24 hour Intake 280 ml Output 0 ml Net 280 ml Stool Occurrence: 1 Oral Diet Order: Regular Last BM Date: 04/19/17 Lab: No results found for this visit on 03/28/17 (from the past 24 hour(s)). Physical Exam VS: BP 129/79 (BP Source: Arm, Right) | Pulse 55 | Temp 36.4 C (97.6 F) | Ht 188 cm (74.02") | Wt 72.2 kg (159 lb 2.8 oz) | SpO2 97% | BMI 20.43 kg/m2 General: Patient appears stated age, in no acute distress, seen resting in bed. HEENT: Normocephalic, atraumatic Neck: full AROM with right gaze preference Cardiovascular: Well perfused Pulmonary: Unlabored respirations Extremities: No cyanosis, clubbing, or edema Skin: Warm and dry Psychiatric: Appropriate mood and affect Musculoskeletal: No atrophy Neurologic: Mental Status: alert Cognition: normal processing speed for casual conversation Speech: mildly dysarthric but clear Cranial Nerves: L facial droop, L neglect improving - needs some cues to attend left - improving Motor: Right sided strength 5/5, Left sided strength 0/5 in all myotomes Clonus at ankle on left side Therapy Notes & Labs Reviewed. Елена Looney MD Associated attestation - Geovanny Holloway MD - 04/20/2017 6:55 PM 3D MODELER Formatting of this note may be different from the original. ATTESTATION I personally performed the lima portions of the E/M visit, discussed case with resident and concur with resident documentation of history, physical exam, assessment, and treatment plan unless otherwise noted. -Exam: stable left hemiplegia -Lab and vitals reviewed and stable. -Patient remains medically and functionally stable for continued rehabilitation participation. Staff name: Geovanny Holloway MD Date: 04/20/2017 * FloriKortney - 04/19/2017 7:24 PM 3D MODELER Activity Therapy Patient participated in an activity therapy 1:1 for wellness through conversation about personal interests. * Kortney Ruby - 04/19/2017 7:22 PM 3D MODELER Activity Therapy Patient participated in cooking a pasta dinner with this activity therapist and other patients from 16:30-18:30. * Joyce Trivedi MA - 04/19/2017 4:46 PM 3D MODELER SPEECH-LANGUAGE PATHOLOGY REHAB SPEECH DAILY NOTE SUMMARY: Patient was seen for two 30 min therapy sessions. Education with patient regarding right hemisphere dysfunction. 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 FREQUENCY TODAY: 2 ACTIVITIES FOR THE DAY: Discussed journaling to assist with memory and suggestion from neuropsych to work on coping strategies. Mr. Osei has refused a journal or memory book. Identified [employer] Luz as a possible avenue for journaling daily. Mr. Osei downloaded luz on his phone and pad. Practiced using the luz to make a call, text and access his calendar. Task took mod cueing. Steps needed to be simplified.Recommended patient download a free note luz which he will need to be able to access to make note daily about things he needs to remember, journal and set goals for himself. Directed Cognitive Task: Alternating Word Ordering: Level 1: 65% accy mod to max cues. Speech Care Home Goals Will improve attention skills necessary for safety in the home with: Minimal to Moderate assist Will improve skills necessary for KENNY's and safety in the home with: Minimal to Moderate assist Speech Short Term Goals Will demonstrate higher level reasoning skills for return home with: Progressing Will demonstrate mathematical problem solving skills for ADLs with: Progressing Will demonstrate visual scanning skills with: Progressing Will demonstrate functional reading skills for ADLs with: Progressing Will demonstrate memory for safety sequences for transfer and ADLs with: Progressing Will demonstrate sustained attention for task performance with: Progressing Therapist: Joyce Akins/MAE/NURSING CARE PARTNER Date: 03/30/2017 * Theodora Gabriel - 04/19/2017 4:22 PM 3D MODELER CLINICAL NUTRITION Clinical Nutrition Re-Eval Summary Nutrition Assessment of Patient: Current Oral Intake: Adequate Oral Diet Order: Regular 41 yo M with no significant PMH, admitted to [facility] on 03/28/17 s/p stroke due to thrombosis of R middle cerebral artery. BMI 21 and LDL 118. Pt and spouse previously educated on heart healthy diet strategies. Pt continues to eat well with no nutrition concerns (PO intakes 90-100% x most meals, 3 meals/day). Weight is stable with previous weight; overall decreased from admit, but reflective in Net I/O of -10.7L. No pressure injuries. Last BM 04/19; bowel meds on board. Labs/meds reviewed. Pt continues not be a risk. Will continue to monitor. Recommendation: Recommendation: Continue current diet. Theodora Gabriel, RD, LD *[id number] * Flori Kortney - 04/19/2017 3:29 PM 3D MODELER Activity Therapy At 1420 patient participated in a pet therapy session with a volunteer, volunteers dog and this activity therapist. * Geovanny Holloway MD - 04/19/2017 2:23 PM 3D MODELER Formatting of this note may be different from the original. ATTESTATION I personally observed the resident performing the E/M, discussed case with resident, and concur with resident documentation of history, physical assessment and treatment plan unless otherwise noted. Labs and vitals reviewed and stable. Staff name: Geovanny Holloway MD Date: 04/19/2017 Physical Medicine & Rehabilitation Progress Note Today's Date: 04/19/2017 Admission Date: 03/28/2017 LOS: 22 days Principal Problem: Cerebrovascular accident (CVA) due to thrombosis of right middle cerebral artery (HCC) Active Problems: Left hemiparesis (HCC) Left-sided neglect Impaired mobility and ADLs Assessment/Plan: Thomas Osei is a 41 y.o. male admitted to [facility] on 03/28/2017 with the following issues: stroke Rehabilitation Plan Rehabilitation Diagnosis: ischemic stroke Current Therapy: PT, OT, ST, neuropsych Goals: home; min-A Tentative discharge date: 04/26/17 Discharge Therapy: Day Program/Outpatient PT/OT DME: Shower chair, wheelchair -Due to patients functional limitations they require a manual wheelchair for independent mobility in the home. A therapy evaluation was completed during their inpatient rehab stay to assess the most appropriate wheelchair for the patient. He will be able to propel an ultralightweight wheelchair and cannot independently propel a standard wheelchair. Daily Functional Update: Transfers Device Sit to Stand Transfer: Assistive Device: None (04/18/2017 9:00 AM) No Data Recorded Gait Device Assist Required Distance Gait: Assistive Device: Hand Hold Assist (Murray wrap to LLE for dorsiflexion) (04/15 10:00 AM) No Data Recorded Gait Distance: 100 feet (75) (04/18/2017 9:00 AM) Toileting Assist Required Equipment Toilet Transfer Toileting Assist: Minimal Assist (04/19/2017 7:00 AM) No Data Recorded Toilet Transfer Assist: Maximum assist (04/19/2017 7:00 AM) Dressing Lower Body LE Dressing Assist: Minimal Assist (04/19/2017 7:00 AM) Cognition - 04/18 Sustained/Alternating Attention/Visual Scanning: Single digit "+" and "-" 1) 03/27 correct, errors x5 in left field. Impulsive responding, did not pay attention to the sign. 2) correct, max cues to attend to the sign. *Patient exhibited difficulty with adding numbers that resulted in double digits. Right MCA CVA (M2 occlusion) - cryptogenic, as per workup so far - ongoing left upper and lower extremity paresis, left facial droop, dysarthria , left neglect - LDL 118 - HbA1c- 5.2 - ECHO (TTE) - EF 55%, mild hypokinesis of basal to mid anteroseptal ji, normal atria size, no PFO - Hypercoagulable workup so far: Cardiolipin IgG :13, Cardiolipin IgM :13, Activated Protein C Resistance: 2.6, Factor 2 Mutation : negative, Negative immunophenotypic study, no evidence of paroxysmal nocturnal hemoglobinuria, BCR/ ABL1 normal - NICKO- no evidence of interarterial shunting. No thrombus. Plan: > ASA 325mg Qday > Atorvastatin 40mg Qday > Fluoxetine 20mgQday for motor recovery > Hematology follow up (Dr. Esparza 04/17/17) > Neurology stroke clinic follow up Left sided hemiplegia Left neglect Impaired mobility and ADLs - PT/OT - on fluoxetine for motor recovery after stroke Muscle spasms Spasticity LLE shooting pain - baclofen 20mg TID - gabapentin 300mg qhs - 04/16 D/c robaxin (hasn't been using) Cognitive impairment - NURSING CARE PARTNER cognitive remediation UTI - resolved Urinary retention - resolved - likely related to UTI, last cath 03/27 > s/p cipro, ended 04/04 > D/c doxazosin 04/10; Repeat BVI's 04/15 w/o retention Back Pain - acute on chronic > Lidocaine patches > Naproxen Sodium Pain Management: Scheduled tylenol 1g TID. Oxycodone, robaxin, lidocaine patch , robaxin, naproxen all are prn Skin: There are no pressure sores currently. Bowel: continent of bowel, constipated, may need enema today Bladder: continent of bladder, most recent BVIs without concern for urinary retention Nutrition: Current diet: regular Mental Health: consult neuropsychology to provide support / counseling DVT Prophylaxis: Lovenox Luigi Galicia, DO Subjective No issues overnight. Pt resting comfortably in WC when seen on rounds this am. Pt stated that he slept throughout the night and didn't wake up in the middle of night which had happened the previous 2 nights. Pt did endorse some spasms in this L foot which was tolerable. Denied generalized pain, insomnia. Objective Vital Signs: Last Filed Vital Signs: 24 Hour Range BP: 123/68 (04/19 614) Temp: 36.4 C (97.5 F) (04/19 614) Pulse: 57 (04/19 614) Respirations: 18 PER MINUTE (04/19 614) SpO2: 95 % (04/19 614) O2 Delivery: None (Room Air) (04/19 614) BP: (123-137)/(68-79) Temp: [36.4 C (97.5 F)-36.7 C (98 F)] Pulse: [57-62] Respirations: [18 PER MINUTE] SpO2: [95 %-98 %] O2 Delivery: None (Room Air) Vitals: 04/17/17 0400 04/18/17 0500 04/19/17 0615 Weight: 74.5 kg (164 lb 3.9 oz) 75.4 kg (166 lb 3.2 oz) 75.2 kg (165 lb 12.6 oz ) Intake/Output Summary: (Last 24 hours) Intake/Output Summary (Last 24 hours) at 04/19/17 1423 Last data filed at 04/19/17 1300 Gross per 24 hour Intake 600 ml Output 350 ml Net 250 ml Stool Occurrence: 1 Oral Diet Order: Regular Last BM Date: 04/19/17 Lab: No results found for this visit on 03/28/17 (from the past 24 hour(s)). Physical Exam VS: BP 123/68 (BP Source: Arm, Right) | Pulse 57 | Temp 36.4 C (97.5 F) | Ht 188 cm (74.02") | Wt 75.2 kg (165 lb 12.6 oz) | SpO2 95% | BMI 21.28 kg/m2 General: Patient appears stated age, in no acute distress, seen in manual wheelchair in room HEENT: Normocephalic, atraumatic Neck: full AROM with right gaze preference Cardiovascular: Well perfused Pulmonary: Unlabored respirations Extremities: No cyanosis, clubbing, or edema Skin: Warm and dry Psychiatric: Appropriate mood and affect Musculoskeletal: No atrophy Neurologic: Mental Status: alert Cognition: normal processing speed for casual conversation Speech: mildly dysarthric but clear Cranial Nerves: L facial droop, L neglect improving - needs some cues to attend left - improving Motor: Right sided strength 5/5, Left sided strength 0/5 in all myotomes Clonus at wrist and ankle on left side Therapy Notes & Labs Reviewed. Luigi Galicia DO * Kortney Ruby - 04/18/2017 7:10 PM 3D MODELER Activity Therapy At 18:00 today patient participated in an activity therapy discussion about patients personal interests, and level of desire to participate in activity therapy program while on rehabilitation unit. * Geovanny Holloway MD - 04/18/2017 11:18 AM 3D MODELER Formatting of this note may be different from the original. ATTESTATION I personally performed the lima portions of the E/M visit, discussed case with resident and concur with resident documentation of history, physical exam, assessment, and treatment plan unless otherwise noted. Labs and vitals reviewed and stable. Staff name: Geovanny Holloway MD Date: 04/18/2017 Physical Medicine & Rehabilitation Progress Note Today's Date: 04/18/2017 Admission Date: 03/28/2017 LOS: 21 days Principal Problem: Cerebrovascular accident (CVA) due to thrombosis of right middle cerebral artery (HCC) Active Problems: Left hemiparesis (HCC) UTI (urinary tract infection) Urinary retention Left-sided neglect Impaired mobility and ADLs Hyponatremia Assessment/Plan: Thomas Osei is a 41 y.o. male admitted to [facility] on 03/28/2017 with the following issues: stroke Rehabilitation Plan Rehabilitation: Patient will continue with comprehensive therapies including physical therapy, occupational therapy, speech & language pathology, specialized rehab nursing, neuropsychology and physiatry oversight. Goals: min-A Tentative discharge date: 04/26/17 Plan: Home with family assist and Day Program/Outpatient PT/OT DME: Shower chair, wheelchair -Due to patients functional limitations they require a manual wheelchair for independent mobility in the home. A therapy evaluation was completed during their inpatient rehab stay to assess the most appropriate wheelchair for the patient. He will be able to propel an ultralightweight wheelchair and cannot independently propel a standard wheelchair. Daily Functional Update: Transfers Device Sit to Stand Transfer: Assistive Device: None (04/17/2017 1:45 PM) No Data Recorded Gait Device Assist Required Distance Gait: Assistive Device: Hand Hold Assist (Murray wrap to LLE for dorsiflexion) (04/15 10:00 AM) No Data Recorded Gait Distance: 120 feet (04/17/2017 1:45 PM) Toileting Assist Required Equipment Toilet Transfer Toileting Assist: Moderate Assist (04/17/2017 7:00 AM) No Data Recorded Toilet Transfer Assist: Moderate assist (04/17/2017 7:00 AM) Dressing Lower Body LE Dressing Assist: Moderate Assist (04/16/2017 7:00 AM) Cognition - 04/11 Remembering Numbers: 7.50 sec. 4/8. 50% accy. 3.00 sec. 04/27 5% accy. 5 sec. 01/17 83% accy. Right MCA CVA (M2 occlusion) - cryptogenic, as per workup so far - ongoing left upper and lower extremity paresis, left facial droop, dysarthria , left neglect - LDL 118 - HbA1c- 5.2 - ECHO (TTE) - EF 55%, mild hypokinesis of basal to mid anteroseptal ji, normal atria size, no PFO - Hypercoagulable workup so far: Cardiolipin IgG :13, Cardiolipin IgM :13, Activated Protein C Resistance: 2.6, Factor 2 Mutation : negative, Negative immunophenotypic study, no evidence of paroxysmal nocturnal hemoglobinuria, BCR/ ABL1 normal - NICKO- no evidence of interarterial shunting. No thrombus. Plan: > ASA 325mg Qday > Atorvastatin 40mg Qday > Fluoxetine 20mgQday for motor recovery > Hematology follow up (Dr. Esparza 04/17/17) > Neurology stroke clinic follow up Left sided hemiplegia Left neglect Impaired mobility and ADLs - PT/OT - on fluoxetine for motor recovery after stroke Muscle spasms Spasticity LLE shooting pain - baclofen 20mg TID - gabapentin 300mg qhs - 04/16 D/c robaxin (hasn't been using) Cognitive impairment - NURSING CARE PARTNER cognitive remediation UTI - resolved > s/p cipro, ended 04/04 Urinary retention - resolved - likely related to UTI - last cath 03/27 > D/c doxazosin 1/3 > Repeat x3 BVI's to r/o retention: volumes 233, 38 mL and 282. Repeat BVI's 04/15 w/o retention Hyponatremia - resolved - secondary to CVA > NaCl d/c 04/09 > Will monitor Back Pain - acute on chronic > Lidocaine patches > Naproxen Sodium Pain Management: Scheduled tylenol 1g TID. Oxycodone, robaxin, lidocaine patch , robaxin, naproxen all are prn Skin: There are no pressure sores currently. Bowel: continent of bowel, constipated, may need enema today Bladder: continent of bladder, BVIs 03/28-03/29 without concern for urinary retention Nutrition: Current diet: regular Mental Health: consult neuropsychology to provide support / counseling DVT Prophylaxis: Regulo Galicia, DO Subjective No acute events overnight. Pt seen working with therapies on e-stimm to his LUE. Pt stated he slept better last night, didn't wake up in the middle of the night. Pain and spasms well controlled. Objective Vital Signs: Last Filed Vital Signs: 24 Hour Range BP: 121/63 (04/18 499) Temp: 36.6 C (97.8 F) (04/18 499) Pulse: 55 (04/18 499) Respirations: 18 PER MINUTE (04/18 499) SpO2: 94 % (04/18 499) O2 Delivery: None (Room Air) (04/18 499) BP: (121)/(63) Temp: [36.6 C (97.8 F)] Pulse: [55] Respirations: [18 PER MINUTE] SpO2: [94 %] O2 Delivery: None (Room Air) Vitals: 04/16/17 0433 04/17/17 0400 04/18/17 0500 Weight: 75.5 kg (166 lb 7.2 oz) 74.5 kg (164 lb 3.9 oz) 75.4 kg (166 lb 3.2 oz) Intake/Output Summary: (Last 24 hours) Intake/Output Summary (Last 24 hours) at 04/18/17 1118 Last data filed at 04/18/17 0710 Gross per 24 hour Intake 680 ml Output 650 ml Net 30 ml Stool Occurrence: 1 Oral Diet Order: Regular Last BM Date: 04/17/17 Lab: Results for orders placed or performed during the hospital encounter of (from the past 24 hour(s)) BASIC METABOLIC PANEL Collection Time: 04/18/17 8:10 AM # # Low-High Sodium 137 137 - 147 MMOL/L Potassium 4.0 3.5 - 5.1 MMOL/L Chloride 102 98 - 110 MMOL/L CO2 27 21 - 30 MMOL/L Anion Gap 8 3 - 12 Glucose 99 70 - 100 MG/DL Blood Urea Nitrogen 25 7 - 25 MG/DL Creatinine 0.92 0.4 - 1.24 MG/DL Calcium 9.7 8.5 - 10.6 MG/DL eGFR Non >60 >60 mL/min eGFR >60 >60 mL/min CBC Collection Time: 04/18/17 8:10 AM # # Low-High White Blood Cells 6.0 4.5 - 11.0 K/UL RBC 5.29 4.4 - 5.5 M/UL Hemoglobin 16.2 13.5 - 16.5 GM/DL Hematocrit 47.9 40 - 50 % MCV 90.6 80 - 100 FL MCH 30.7 26 - 34 PG MCHC 33.9 32.0 - 36.0 G/DL RDW 12.9 11 - 15 % Platelet Count 316 150 - 400 K/UL MPV 7.6 7 - 11 FL Physical Exam VS: BP 121/63 (BP Source: Arm, Right) | Pulse 55 | Temp 36.6 C (97.8 F) | Ht 188 cm (74.02") | Wt 75.4 kg (166 lb 3.2 oz) | SpO2 94% | BMI 21.33 kg/m2 General: Patient appears stated age, in no acute distress HEENT: Normocephalic, atraumatic Neck: No thyroidmegaly Cardiovascular: Well perfused Pulmonary: Unlabored respirations Extremities: No cyanosis, clubbing, or edema Skin: Warm and dry Psychiatric: Appropriate mood and affect Musculoskeletal: No atrophy Neurologic: Mental Status: alert Cognition: normal processing speed for casual conversation Speech: mildly dysarthric but clear Cranial Nerves: L facial droop, L neglect improving - still needs some cues to attend left - improving Motor: Right sided strength 5/5, Left sided strength 0/5 in all myotomes Clonus at wrist and ankle on left side Therapy Notes & Labs Reviewed. Luigi Galicia DO * Sindy Mccolud, PhD - 04/18/2017 11:17 AM 3D MODELER [phone]; [phone] Pt was seen for follow-up with no family or significant others present. Pt was alert, oriented, and open/responsive to inquiry. The utility of this service was discussed and pt agreed to participate. Speech was grossly WNL and thought processes were connected and logical to content of conversation. Eye contact was within social norms and non-verbal behaviors were appropriate to context. Mood and affect were congruent and euthymic. Pt reported feeling frustrated with his progress in therapies and expressed that he has some discrepancy between his rate of recovery and the rate at which he had hoped to recover. He indicated he is choosing to be active in the recovery process and putting forth his best effort in therapies. He discussed that he tends to hold himself to high standards and can place high demands on himself, which sometimes impacts his view of success and failure. He reported he "can be hard on himself." He reported he is very goal-oriented and that he benefits from progress indicators. He reported using coping strategies of self- reflection. Supportive therapy was provided to pt. Cognitive behavioral strategies were used to examine and challenge some of pt's core beliefs related to success/ failure. We discussed evidence for and against pt's beliefs to increase discrepancy to encourage pt to practice acceptance and self-compassion. Pt's locus of control was also discussed, and I encouraged pt to reflect on and acknowledge his intentional choice and efforts put forth during the recovery process to increase feelings of internal locus of control. Mindfulness strategies were explored and I encouraged pt to practice acceptance-based strategies to increase contact with the present such as identifying 3 daily gratitudes or finding one thing each day to highlight gains in the recovery process. Pt was open and agreeable to trying this. I also encouraged pt to consider keeping record of his recovery journey as a reliable method to reflect on growth made in therapies. I also provided pt with information regarding outpatient Neuropsychology evaluation with Dr. Sindy Mccloud on 06/13/17, 8:15 am in [facility] [place] 6th floor Psychiatry , to which he was open and agreeable to. Pts progress, utilization of coping skills, and goals for rehab therapies were supported. Will continue to follow and assess cognition, mood, pain management, and coping. Julia Chakraborty, Ph.D. Neurorehabilitation Psychology Postdoctoral Fellow Pager #: [phone] ATTESTATION: I discussed this session and pt's care with the fellow and agree with her note as amended above. We will continue to follow prn until [facility] d/ c. Joann Mccloud, PhD, ABPP * Joyce Trivedi MA - 04/18/2017 9:32 AM 3D MODELER SPEECH-LANGUAGE PATHOLOGY REHAB SPEECH DAILY NOTE SUMMARY: Patient was seen for two 30 min therapy sessions. Education with patient regarding right hemisphere dysfunction. 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 FREQUENCY TODAY: Continue plan of care. ACTIVITIES FOR THE DAY: Sustained/Alternating Attention/Visual Scanning: Single digit "+" and "-" 1) 12/20 correct, errors x5 in left field. Impulsive responding, did not pay attention to the sign. 2) 18/20 correct, max cues to attend to the sign. *Patient exhibited difficulty with adding numbers that resulted in double digits. Functional Reading/Scanning: Calendar Tasks: 1) 09/11 2) Filling in dates/ appointments: 80% accy mod cues to input on left side in box on calendar. * Patient uses [employer] calendar. Discussed which days of the week he will more apt to miss appointments (early in the week/items on the left). Patient will need to use an anchor to help him scan left. Math/money problems for ADL's. Mod cues to perform the math. Ongoing Speech Care Home Goals Will improve attention skills necessary for safety in the home with: Minimal to Moderate assist Will improve skills necessary for KENNY's and safety in the home with: Minimal to Moderate assist Speech Short Term Goals Will demonstrate higher level reasoning skills for return home with: Progressing Will demonstrate mathematical problem solving skills for ADLs with: Progressing Will demonstrate visual scanning skills with: Progressing Will demonstrate functional reading skills for ADLs with: Progressing Will demonstrate memory for safety sequences for transfer and ADLs with: Progressing Will demonstrate sustained attention for task performance with: Progressing Therapist: Joyce Akins/MAE/NURSING CARE PARTNER Date: 03/30/2017 * Kortney Lennon MD - 04/17/2017 11:48 AM 3D MODELER Formatting of this note may be different from the original. ATTESTATION I personally performed the lima portions of the E/M visit, discussed case with resident and concur with resident documentation of history, physical exam, assessment, and treatment plan unless otherwise noted. Staff name: Kortney Lennon MD Date: 04/17/2017 Physical Medicine & Rehabilitation Progress Note Today's Date: 04/17/2017 Admission Date: 03/28/2017 LOS: 20 days Principal Problem: Cerebrovascular accident (CVA) due to thrombosis of right middle cerebral artery (HCC) Active Problems: Left hemiparesis (HCC) UTI (urinary tract infection) Urinary retention Left-sided neglect Impaired mobility and ADLs Hyponatremia Assessment/Plan: Thomas Osei is a 41 y.o. male admitted to [facility] on 03/28/2017 with the following issues: stroke Rehabilitation Plan Rehabilitation: Patient will continue with comprehensive therapies including physical therapy, occupational therapy, speech & language pathology, specialized rehab nursing, neuropsychology and physiatry oversight. Goals: min-A Tentative discharge date: 04/26/17 Plan: Home with family assist and Day Program/Outpatient PT/OT DME: Shower chair, wheelchair -Due to patients functional limitations they require a manual wheelchair for independent mobility in the home. A therapy evaluation was completed during their inpatient rehab stay to assess the most appropriate wheelchair for the patient. He will be able to propel an ultralightweight wheelchair and cannot independently propel a standard wheelchair. Daily Functional Update: Transfers Device Sit to Stand Transfer: Assistive Device: None (04/16/2017 11:00 AM) No Data Recorded Gait Device Assist Required Distance Gait: Assistive Device: Hand Hold Assist (Murray wrap to LLE for dorsiflexion) (04/15 10:00 AM) No Data Recorded Gait Distance: 60 feet (04/15/2017 10:00 AM) Toileting Assist Required Equipment Toilet Transfer Toileting Assist: Maximum Assist (04/15/2017 7:30 AM) No Data Recorded Toilet Transfer Assist: Maximum assist (04/15/2017 7:30 AM) Dressing Lower Body LE Dressing Assist: Moderate Assist (04/16/2017 7:00 AM) Cognition - 04/11 Remembering Numbers: 7.50 sec. 4/8. 50% accy. 3.00 sec. 04/27 5% accy. 5 sec. 01/17 83% accy. Right MCA CVA (M2 occlusion) - cryptogenic, as per workup so far - ongoing left upper and lower extremity paresis, left facial droop, dysarthria , left neglect - LDL 118 - HbA1c- 5.2 - ECHO (TTE) - EF 55%, mild hypokinesis of basal to mid anteroseptal ji, normal atria size, no PFO - Hypercoagulable workup so far: Cardiolipin IgG :13, Cardiolipin IgM :13, Activated Protein C Resistance: 2.6, Factor 2 Mutation : negative, Negative immunophenotypic study, no evidence of paroxysmal nocturnal hemoglobinuria, BCR/ ABL1 normal - NICKO- no evidence of interarterial shunting. No thrombus. Plan: > ASA 325mg Qday > Atorvastatin 40mg Qday > Fluoxetine 20mgQday for motor recovery > Hematology follow up (Dr. Esparza 05/15/17) > Neurology stroke clinic follow up Left sided hemiplegia Left neglect Impaired mobility and ADLs - PT/OT - on fluoxetine for motor recovery after stroke Muscle spasms Spasticity LLE shooting pain - baclofen 20mg TID - gabapentin 300mg qhs - Robaxin discontinued 04/16 Cognitive impairment - NURSING CARE PARTNER cognitive remediation UTI - resolved > s/p cipro, ended 04/04 Urinary retention - resolved - likely related to UTI - last cath 03/27 > D/c doxazosin 04/10 > Repeat x3 BVI's to r/o retention: volumes 233, 38 mL and 282. Repeat BVI's 04/15 w/o retention Hyponatremia - resolved - secondary to CVA > NaCl d/c 04/09 > Will monitor Back Pain - acute on chronic > Lidocaine patches > Naproxen Sodium Pain Management: Scheduled tylenol 1g TID. lidocaine patch. Gabapentin Skin: There are no pressure sores currently. Bowel: continent of bowel, constipated, may need enema today Bladder: continent of bladder, BVIs 03/28-03/29 without concern for urinary retention Nutrition: Current diet: regular Mental Health: consult neuropsychology to provide support / counseling DVT Prophylaxis: Regulo Galicia, Subjective No acute events overnight. Pt stated that he didn't sleep great last night. A nurse walked into his room around 2 am at their was a light on in his room which made it difficult for him to sleep. Pt endorsed mild L shoulder spasms. No other questions or concerns when seen. Pain well controlled. Objective Vital Signs: Last Filed Vital Signs: 24 Hour Range BP: 120/82 (04/17 307) Temp: 36.7 C (98.1 F) (04/17 307) Pulse: 67 (04/17 307) Respirations: 18 PER MINUTE (04/17 307) SpO2: 94 % (04/17 307) O2 Delivery: None (Room Air) (04/17 307) BP: (119-120)/(82-91) Temp: [36.7 C (98.1 F)] Pulse: [67] Respirations: [18 PER MINUTE] SpO2: [94 %] O2 Delivery: None (Room Air) Intensity Pain Scale 0-10 (Pain 1): 8 (04/16/172016) Vitals: 04/14/17 0600 04/16/17 0433 04/17/17 0400 Weight: 75.5 kg (166 lb 7.2 oz) 75.5 kg (166 lb 7.2 oz) 74.5 kg (164 lb 3.9 oz) Intake/Output Summary: (Last 24 hours) Intake/Output Summary (Last 24 hours) at 04/17/17 1150 Last data filed at 04/17/17 0900 Gross per 24 hour Intake 360 ml Output 1425 ml Net -1065 ml Stool Occurrence: 1 (with therapy) BVI (Bladder Scan)(mL): 59 milliliters (PVI) (04/17/17 0637) Oral Diet Order: Regular Last BM Date: 04/16/17 Lab: No results found for this visit on 03/28/17 (from the past 24 hour(s)). Physical Exam VS: BP 120/82 (BP Source: Arm, Right) | Pulse 67 | Temp 36.7 C (98.1 F) | Ht 188 cm (74.02") | Wt 74.5 kg (164 lb 3.9 oz) | SpO2 94% | BMI 21.08 kg/m2 General: Patient appears stated age, in no acute distress HEENT: Normocephalic, atraumatic Neck: No thyroidmegaly Cardiovascular: Well perfused Pulmonary: Unlabored respirations Extremities: No cyanosis, clubbing, or edema. Sling to L shoulder Skin: Warm and dry Psychiatric: Appropriate mood and affect Musculoskeletal: No atrophy Neurologic: Mental Status: alert Cognition: normal processing speed for casual conversation Speech: mildly dysarthric but clear Cranial Nerves: L facial droop, L neglect improving - still needs some cues to attend left - improving Motor: Right sided strength 5/5, Left sided strength 0/5 in all myotomes Clonus at wrist and ankle on left side Therapy Notes & Labs Reviewed. DO Tess Ferrari Diane, MA - 04/17/2017 9:36 AM 3D MODELER SPEECH-LANGUAGE PATHOLOGY REHAB SPEECH DAILY NOTE SUMMARY: Patient was seen for two 30 min therapy sessions. Education with patient regarding right hemisphere dysfunction. 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 FREQUENCY TODAY: Continue plan of care. ACTIVITIES FOR THE DAY: Talked about goals and progress. Patient frustrated that he was unable to find information on his disability form. Identified information was slightly past midline on left. Continued with scanning of information on forms. Patient exhibited mild difficulty with information in center field. Discussed use of anchors and scanning strategies. Mr. Mayen having some difficulty that strategies will be his new norm for awhile. Continued with visual scanning tasks. Provided strategy to use to improve performance from yesterday. Alternating Symbol Matching: Level 2: 89% accy min cues. Clock Reading: Level 2: 100% accy mild response delay Functional Reading: Level 2: 100% accy min cues. Simple Word Math Problems: 0/3. Patient exhibited difficulty with simple carry function. Significant response delay Worked with patient on using his cell phone. Patient reported difficulty texting and locating numbers. Practiced voice activation to text and make calls. Patient had difficulty, wanting to return to what he had done prior to his stroke. Situational problem solving: locating his doctors number to cancel an appointment. Problem solving was poor, required mod cues to identify ways he could find the number. Speech Campaign Worker Goals Will improve attention skills necessary for safety in the home with: Minimal to Moderate assist Will improve skills necessary for KENNY's and safety in the home with: Minimal to Moderate assist Speech Short Term Goals Will demonstrate higher level reasoning skills for return home with: Progressing Will demonstrate mathematical problem solving skills for ADLs with: Progressing Will demonstrate visual scanning skills with: Progressing Will demonstrate functional reading skills for ADLs with: Progressing Will demonstrate memory for safety sequences for transfer and ADLs with: Progressing Will demonstrate sustained attention for task performance with: Progressing Therapist: Joyce Akins/MAE/NURSING CARE PARTNER Date: 03/30/2017 * Kortney Lennon MD - 04/16/2017 3:34 PM 3D MODELER Formatting of this note may be different from the original. ATTESTATION I personally performed the lima portions of the E/M visit, discussed case with resident and concur with resident documentation of history, physical exam, assessment, and treatment plan unless otherwise noted. Labs and VS reviewed and stable. Pain and spasms controlled on current meds. Not taking robaxin or oxy, so d/c. Per d/w rehab team at conference, patient making progress towards goal of SBA with manual wheelchair. Tentative discharge date 04/26/17. Progress this week, max A toileting, SBA UE dressing, min to mod A transfers, improving L neglect. Recommending Day rehab therapies at time of discharge from rehab. Staff name: Kortney Lennon MD Date: 04/16/2017 Physical Medicine & Rehabilitation Progress Note Today's Date: 04/16/2017 Admission Date: 03/28/2017 LOS: 19 days Principal Problem: Cerebrovascular accident (CVA) due to thrombosis of right middle cerebral artery (HCC) Active Problems: Left hemiparesis (HCC) UTI (urinary tract infection) Urinary retention Left-sided neglect Impaired mobility and ADLs Hyponatremia Assessment/Plan: Thomas Osei is a 41 y.o. male admitted to [facility] on 03/28/2017 with the following issues: stroke Rehabilitation Plan Rehabilitation: Patient will continue with comprehensive therapies including physical therapy, occupational therapy, speech & language pathology, specialized rehab nursing, neuropsychology and physiatry oversight. Goals: min-A Tentative discharge date: 04/26/17 Plan: Home with family assist and Day Program/Outpatient PT/OT DME: Shower chair, wheelchair -Due to patients functional limitations they require a manual wheelchair for independent mobility in the home. A therapy evaluation was completed during their inpatient rehab stay to assess the most appropriate wheelchair for the patient. He will be able to propel an ultralightweight wheelchair and cannot independently propel a standard wheelchair. Daily Functional Update: Transfers Device Sit to Stand Transfer: Assistive Device: None (04/16/2017 11:00 AM) No Data Recorded Gait Device Assist Required Distance Gait: Assistive Device: Hand Hold Assist (Murray wrap to LLE for dorsiflexion) (04/15 10:00 AM) No Data Recorded Gait Distance: 60 feet (04/15/2017 10:00 AM) Toileting Assist Required Equipment Toilet Transfer Toileting Assist: Maximum Assist (04/15/2017 7:30 AM) No Data Recorded Toilet Transfer Assist: Maximum assist (04/15/2017 7:30 AM) Dressing Lower Body LE Dressing Assist: Moderate Assist (04/16/2017 7:00 AM) Cognition - 04/11 Remembering Numbers: 7.50 sec. 4/8. 50% accy. 3.00 sec. 04/27 5% accy. 5 sec. 01/17 83% accy. Right MCA CVA (M2 occlusion) - cryptogenic, as per workup so far - ongoing left upper and lower extremity paresis, left facial droop, dysarthria , left neglect - LDL 118 - HbA1c- 5.2 - ECHO (TTE) - EF 55%, mild hypokinesis of basal to mid anteroseptal ji, normal atria size, no PFO - Hypercoagulable workup so far: Cardiolipin IgG :13, Cardiolipin IgM :13, Activated Protein C Resistance: 2.6, Factor 2 Mutation : negative, Negative immunophenotypic study, no evidence of paroxysmal nocturnal hemoglobinuria, BCR/ ABL1 normal - NICKO- no evidence of interarterial shunting. No thrombus. Plan: > ASA 325mg Qday > Atorvastatin 40mg Qday > Fluoxetine 20mgQday for motor recovery > Hematology follow up (Dr. Esparza 04/17/17) > Neurology stroke clinic follow up Left sided hemiplegia Left neglect Impaired mobility and ADLs - PT/OT - on fluoxetine for motor recovery after stroke Muscle spasms Spasticity LLE shooting pain - baclofen 20mg TID - gabapentin 300mg qhs - 04/16 D/c robaxin (hasn't been using) Cognitive impairment - NURSING CARE PARTNER cognitive remediation UTI - resolved > s/p cipro, ended 04/04 Urinary retention - resolved - likely related to UTI - last cath 03/27 > D/c doxazosin 04/10 > Repeat x3 BVI's to r/o retention: volumes 233, 38 mL and 282. Repeat BVI's 04/15 w/o retention Hyponatremia - resolved - secondary to CVA > NaCl d/c 04/09 > Will monitor Back Pain - acute on chronic > Lidocaine patches > Naproxen Sodium Pain Management: Scheduled tylenol 1g TID. Oxycodone, robaxin, lidocaine patch , robaxin, naproxen all are prn Skin: There are no pressure sores currently. Bowel: continent of bowel, constipated, may need enema today Bladder: continent of bladder, BVIs 03/28-03/29 without concern for urinary retention Nutrition: Current diet: regular Mental Health: consult neuropsychology to provide support / counseling DVT Prophylaxis: Regulo Galicia, Subjective No events overnight. Pt seen in gym working with therapies on stairs. Pt overall encouraged with his progress in therapies. Pain and spasms well controlled, will d/c robaxin as he hasn't been using it. No questions/concerns when seen. Objective Vital Signs: Last Filed Vital Signs: 24 Hour Range BP: 119/91 (04/16 1200) Temp: 36.7 C (98.1 F) (04/16 412) Pulse: 54 (04/16 412) Respirations: 18 PER MINUTE (04/16 412) SpO2: 96 % (04/16 412) O2 Delivery: None (Room Air) (04/16 412) BP: (119-128)/(79-91) Temp: [36.7 C (98.1 F)] Pulse: [54-65] Respirations: [18 PER MINUTE] SpO2: [96 %] O2 Delivery: None (Room Air) Intensity Pain Scale 0-10 (Pain 1): 0 (04/16/17 1030) Vitals: 04/13/17 0600 04/14/17 0600 04/16/17 0433 Weight: 75.3 kg (166 lb) 75.5 kg (166 lb 7.2 oz) 75.5 kg (166 lb 7.2 oz) Intake/Output Summary: (Last 24 hours) Intake/Output Summary (Last 24 hours) at 04/16/17 1534 Last data filed at 04/16/17 0900 Gross per 24 hour Intake 980 ml Output 1025 ml Net -45 ml Stool Occurrence: 1 (with therapy) Oral Diet Order: Regular Last BM Date: 04/16/17 Lab: No results found for this visit on 03/28/17 (from the past 24 hour(s)). Physical Exam VS: BP (!) 119/91 (BP Source: Arm, Right) Comment: RN notified | Pulse 54 | Temp 36.7 C (98.1 F) | Ht 188 cm (74.02") | Wt 75.5 kg (166 lb 7.2 oz) | SpO2 96% | BMI 21.36 kg/m2 General: Patient appears stated age, in no acute distress HEENT: Normocephalic, atraumatic Neck: No thyroidmegaly Cardiovascular: Well perfused Pulmonary: Unlabored respirations Extremities: No cyanosis, clubbing, or edema Skin: Warm and dry Psychiatric: Appropriate mood and affect Musculoskeletal: No atrophy Neurologic: Mental Status: alert Cognition: normal processing speed for casual conversation Speech: mildly dysarthric but clear Cranial Nerves: L facial droop, L neglect improving - still needs some cues to attend left - improving Motor: Right sided strength 5/5, Left sided strength 0/5 in all myotomes Clonus at wrist and ankle on left side Therapy Notes & Labs Reviewed. DO Tess Ferrari Diane, MA - 04/16/2017 1:02 PM 3D MODELER SPEECH-LANGUAGE PATHOLOGY REHAB SPEECH DAILY NOTE SUMMARY: Patient was seen for one 60 min therapy session. Education with patient regarding right hemisphere dysfunction. Patient was discussed in team conference. 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 FREQUENCY TODAY: Continue plan of care. ACTIVITIES FOR THE DAY: Administered two sub-tests from the APT (Attention Process Training Test): Sustained Attention - Level 1: (Mean for patient's age=29.9) Complex Sustained Attention - Level 2 10/05 (Mean for patient's age=25.1) Visual Scanning - Sustained Attention: Alternating Symbol Matching: CT Luz. - Visual Task 1) Level 1: 92% accy modcues. 2) Level 2: 79% accy mod to max cues. 3) Level 2: 89% accy mod cues. 4) Level 2: 87% accy min cues. Visual Reasonin% accy. Auditory Commands: Level 2: 83% accy. Working Memory: 60% accy mod cues. Speech Campaign Worker Goals Will improve attention skills necessary for safety in the home with: Minimal to Moderate assist Will improve skills necessary for KENNY's and safety in the home with: Minimal to Moderate assist Speech Short Term Goals Will demonstrate higher level reasoning skills for return home with: Progressing Will demonstrate mathematical problem solving skills for ADLs with: Progressing Will demonstrate visual scanning skills with: Progressing Will demonstrate functional reading skills for ADLs with: Progressing Will demonstrate memory for safety sequences for transfer and ADLs with: Progressing Will demonstrate sustained attention for task performance with: Progressing Therapist: Joyce Akins/MAE/NURSING CARE PARTNER Date: 03/30/2017 * Joyce Trivedi MA - 04/15/2017 11:53 AM 3D MODELER SPEECH-LANGUAGE PATHOLOGY REHAB SPEECH DAILY NOTE SUMMARY: Patient was seen for one 60 min therapy session. Education with patient regarding right hemisphere dysfunction. 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 FREQUENCY TODAY: Continue plan of care. ACTIVITIES FOR THE DAY: Visual Scanning - Functional Task: Balancing Registers: Distractible. Mod cues to place items in the correct place. Patient stopped mid task, reportedly he had difficulty maintaining attention. Word Problems with Pictures: 3/5 min to mod cues. Written Calendar: 90% accy min cues. Calendar Task: CT Luz: level 2: 100% accy min cues. Patient required breaks during the session today. *Patient completed homework assignments from the weekend, visual scanning and functional math problems:100% accy. Patient reported everything has been a struggle today, even scanning left to locate items on his food tray. Speech Campaign Worker Goals Will improve attention skills necessary for safety in the home with: Minimal to Moderate assist Will improve skills necessary for KENNY's and safety in the home with: Minimal to Moderate assist Speech Short Term Goals Will demonstrate higher level reasoning skills for return home with: Progressing Will demonstrate mathematical problem solving skills for ADLs with: Progressing Will demonstrate visual scanning skills with: Progressing Will demonstrate functional reading skills for ADLs with: Progressing Will demonstrate memory for safety sequences for transfer and ADLs with: Progressing Will demonstrate sustained attention for task performance with: Progressing Therapist: Joyce Akins/CCC/NURSING CARE PARTNER Date: 03/30/2017 * Kortney Lennon MD - 04/15/2017 8:15 AM 3D MODELER Formatting of this note may be different from the original. ATTESTATION I personally performed the lima portions of the E/M visit, discussed case with resident and concur with resident documentation of history, physical exam, assessment, and treatment plan unless otherwise noted. Labs and VS reviewed and stable. Monitor cognition, fatigue on current dose baclofen. BVIs negative. SW working on outpatient therapy plan. Cont PT, OT, NURSING CARE PARTNER. Staff name: Kortney Lennon MD Date: 04/15/2017 Physical Medicine & Rehabilitation Progress Note Today's Date: 04/15/2017 Admission Date: 03/28/2017 LOS: 18 days Principal Problem: Cerebrovascular accident (CVA) due to thrombosis of right middle cerebral artery (HCC) Active Problems: Left hemiparesis (HCC) UTI (urinary tract infection) Urinary retention Left-sided neglect Impaired mobility and ADLs Hyponatremia Assessment/Plan: Thomas Osei is a 41 y.o. male admitted to [facility] on 03/28/2017 with the following issues: stroke Rehabilitation Plan Rehabilitation: Patient will continue with comprehensive therapies including physical therapy, occupational therapy, speech & language pathology, specialized rehab nursing, neuropsychology and physiatry oversight. Goals: min-A Tentative discharge date: 04/26/17 Plan: Home with family assist and Day Program/Outpatient PT/OT DME: Shower chair, wheelchair TBD Daily Functional Update: Transfers Device Sit to Stand Transfer: Assistive Device: None (04/14/2017 5:00 PM) No Data Recorded Gait Device Assist Required Distance Gait: Assistive Device: Hand Hold Assist (MURRAY wrapped on LLE for dorsiflexion assist) (04/14/2017 5:00 PM) No Data Recorded Gait Distance: 60 feet (x2) (04/14/2017 5:00 PM) Toileting Assist Required Equipment Toilet Transfer Toileting Assist: Maximum Assist (04/09/2017 10:30 AM) No Data Recorded Toilet Transfer Assist: Maximum assist (04/09/2017 10:30 AM) Dressing Lower Body LE Dressing Assist: Moderate Assist (04/14/2017 10:45 AM) Cognition - 04/11 Remembering Numbers: 7.50 sec. 4/8. 50% accy. 3.00 sec. 04/27 5% accy. 5 sec. 01/17 83% accy. Right MCA CVA (M2 occlusion) - cryptogenic, as per workup so far - ongoing left upper and lower extremity paresis, left facial droop, dysarthria , left neglect - LDL 118 - HbA1c- 5.2 - ECHO (TTE) - EF 55%, mild hypokinesis of basal to mid anteroseptal ji, normal atria size, no PFO - Hypercoagulable workup so far: Cardiolipin IgG :13, Cardiolipin IgM :13, Activated Protein C Resistance: 2.6, Factor 2 Mutation : negative, Negative immunophenotypic study, no evidence of paroxysmal nocturnal hemoglobinuria, BCR/ ABL1 normal - NICKO- no evidence of interarterial shunting. No thrombus. Plan: > ASA 325mg Qday > Atorvastatin 40mg Qday > Fluoxetine 20mgQday for motor recovery > Hematology follow up (Dr. Esparza 04/17/17) > Neurology stroke clinic follow up Left sided hemiplegia Left neglect Impaired mobility and ADLs - PT/OT - on fluoxetine for motor recovery after stroke Muscle spasms Spasticity LLE shooting pain - baclofen 20mg TID - gabapentin 300mg qhs - robaxin TID prn Cognitive impairment - NURSING CARE PARTNER cognitive remediation UTI - resolved > s/p cipro, ended 04/04 Urinary retention - resolved - likely related to UTI - last cath 03/27 > D/c doxazosin 04/10 > Repeat x3 BVI's to r/o retention: volumes 233, 38 mL and 282. Repeat BVI's 04/15 Hyponatremia - resolved - secondary to CVA > NaCl d/c 04/09 > Will monitor Back Pain - acute on chronic > Lidocaine patches > Naproxen Sodium Pain Management: Scheduled tylenol 1g TID. Oxycodone, robaxin, lidocaine patch , robaxin, naproxen all are prn Skin: There are no pressure sores currently. Bowel: continent of bowel, constipated, may need enema today Bladder: continent of bladder, BVIs 03/28-03/29 without concern for urinary retention Nutrition: Current diet: regular Mental Health: consult neuropsychology to provide support / counseling DVT Prophylaxis: Lovenox Luigi Galicia, DO Subjective No events overnight. Pt resting in bed with at bedside when seen on rounds. Pt stated that he felt more tired today this am, wasn't sure if it was related therapies at 7am today. Will continue to monitor. Pain and spasms tolerable. Objective Vital Signs: Last Filed Vital Signs: 24 Hour Range BP: 130/72 (04/15 539) Temp: 36.9 C (98.4 F) (04/15 539) Pulse: 64 (04/15 539) Respirations: 18 PER MINUTE (04/15 539) SpO2: 98 % (04/15 539) O2 Delivery: None (Room Air) (04/15 539) BP: (126-130)/(72-73) Temp: [36.8 C (98.3 F)-36.9 C (98.4 F)] Pulse: [62-64] Respirations: [18 PER MINUTE] SpO2: [96 %-98 %] O2 Delivery: None (Room Air) Vitals: 04/12/17 0401 04/13/17 0600 04/14/17 0600 Weight: 74.6 kg (164 lb 7.4 oz) 75.3 kg (166 lb) 75.5 kg (166 lb 7.2 oz) Intake/Output Summary: (Last 24 hours) Intake/Output Summary (Last 24 hours) at 04/15/17 0815 Last data filed at 04/14/17 1900 Gross per 24 hour Intake 1300 ml Output 0 ml Net 1300 ml Stool Occurrence: 1 Oral Diet Order: Regular Last BM Date: 04/14/17 Lab: No results found for this visit on 03/28/17 (from the past 24 hour(s)). Physical Exam VS: BP 130/72 (BP Source: Arm, Right) | Pulse 64 | Temp 36.9 C (98.4 F) | Ht 188 cm (74.02") | Wt 75.5 kg (166 lb 7.2 oz) | SpO2 98% | BMI 21.36 kg/m2 General: Patient appears stated age, in no acute distress HEENT: Normocephalic, atraumatic Neck: No thyroidmegaly Cardiovascular: Well perfused Pulmonary: Unlabored respirations Extremities: No cyanosis, clubbing, or edema Skin: Warm and dry Psychiatric: Appropriate mood and affect Musculoskeletal: No atrophy Neurologic: Mental Status: alert Cognition: normal processing speed for casual conversation Speech: mildly dysarthric but clear Cranial Nerves: L facial droop, L neglect improving - still needs some cues to attend left - improving Motor: Right sided strength 5/5, Left sided strength 0/5 in all myotomes Clonus at wrist and ankle on left side Therapy Notes & Labs Reviewed. Luigi Galicia DO * Abril, Nathan Wiley DO - 04/14/2017 8:33 AM 3D MODELER Formatting of this note may be different from the original. Physical Medicine & Rehabilitation Progress Note Today's Date: 04/14/2017 Admission Date: 03/28/2017 LOS: 17 days Principal Problem: Cerebrovascular accident (CVA) due to thrombosis of right middle cerebral artery (HCC) Active Problems: Left hemiparesis (HCC) UTI (urinary tract infection) Urinary retention Left-sided neglect Impaired mobility and ADLs Hyponatremia Assessment/Plan: Thomas Osei is a 41 y.o. male admitted to [facility] on 03/28/2017 with the following issues: stroke Rehabilitation Plan Rehabilitation: Patient will continue with comprehensive therapies including physical therapy, occupational therapy, speech & language pathology, specialized rehab nursing, neuropsychology and physiatry oversight. Goals: min-A Tentative discharge date: 04/26/17 Plan: Home with family assist and Day Program/Outpatient PT/OT DME: Shower chair, wheelchair TBD Daily Functional Update: Transfers Device Sit to Stand Transfer: Assistive Device: None (04/12/2017 11:15 AM) No Data Recorded Gait Device Assist Required Distance Gait: Assistive Device: Hand Hold Assist (04/12/2017 11:15 AM) No Data Recorded Gait Distance: 45 feet (x2) (04/12/2017 11:15 AM) Toileting Assist Required Equipment Toilet Transfer Toileting Assist: Maximum Assist (04/09/2017 10:30 AM) No Data Recorded Toilet Transfer Assist: Maximum assist (04/09/2017 10:30 AM) Dressing Lower Body LE Dressing Assist: Moderate Assist (04/10/2017 8:45 AM) Cognition - 04/11 Remembering Numbers: 7.50 sec. 4/8. 50% accy. 3.00 sec. 04/27 5% accy. 5 sec. 01/17 83% accy. Right MCA CVA (M2 occlusion) - cryptogenic, as per workup so far - ongoing left upper and lower extremity paresis, left facial droop, dysarthria , left neglect - LDL 118 - HbA1c- 5.2 - ECHO (TTE) - EF 55%, mild hypokinesis of basal to mid anteroseptal ji, normal atria size, no PFO - Hypercoagulable workup so far: Cardiolipin IgG :13, Cardiolipin IgM :13, Activated Protein C Resistance: 2.6, Factor 2 Mutation : negative, Negative immunophenotypic study, no evidence of paroxysmal nocturnal hemoglobinuria, BCR/ ABL1 normal - NICKO- no evidence of interarterial shunting. No thrombus. Plan: > ASA 325mg Qday > Atorvastatin 40mg Qday > Fluoxetine 20mgQday for motor recovery > Hematology follow up (Dr. Esparza 04/17/17) > Neurology stroke clinic follow up Left sided hemiplegia Left neglect Impaired mobility and ADLs - PT/OT - on fluoxetine for motor recovery after stroke Muscle spasms Possible spasticity LLE shooting pain - baclofen 20mg TID - gabapentin 300mg qhs - robaxin TID prn Cognitive impairment - NURSING CARE PARTNER cognitive remediation UTI - resolved > s/p cipro, ended 04/04 Urinary retention - resolved - likely related to UTI - last cath 03/27 > D/c doxazosin 04/10 > Repeat x3 BVI's to r/o retention: volumes 233 and 38 mL, will trend Hyponatremia - resolved - secondary to CVA > NaCl d/c 04/09 > Will monitor Back Pain - acute on chronic > Lidocaine patches > Naproxen Sodium Pain Management: Scheduled tylenol 1g TID. Oxycodone, robaxin, lidocaine patch , robaxin, naproxen all are prn Skin: There are no pressure sores currently. Bowel: continent of bowel, constipated, may need enema today Bladder: continent of bladder, BVIs 03/28-03/29 without concern for urinary retention Nutrition: Current diet: regular Mental Health: consult neuropsychology to provide support / counseling DVT Prophylaxis: Lovenox No change to plan. Nathan Samuels, Subjective Patient seen resting comfortably at bedside this morning without any signs of acute distress. No significant events noted overnight by nursing staff. Patient denies headache, chest pain, shortness of breath, abdominal pain, or myalgia. Objective Vital Signs: Last Filed Vital Signs: 24 Hour Range BP: 125/80 (04/14 599) Temp: 36.5 C (97.7 F) (04/14 599) Pulse: 54 (04/14 599) Respirations: 18 PER MINUTE (04/14 599) SpO2: 97 % (04/14 599) O2 Delivery: None (Room Air) (04/14 599) BP: (125)/(80) Temp: [36.5 C (97.7 F)] Pulse: [54] Respirations: [18 PER MINUTE] SpO2: [97 %] O2 Delivery: None (Room Air) Vitals: 04/12/17 0401 04/13/17 0600 04/14/17 0600 Weight: 74.6 kg (164 lb 7.4 oz) 75.3 kg (166 lb) 75.5 kg (166 lb 7.2 oz) Intake/Output Summary: (Last 24 hours) Intake/Output Summary (Last 24 hours) at 04/14/17 0833 Last data filed at 04/13/17 1541 Gross per 24 hour Intake 600 ml Output 905 ml Net -305 ml Stool Occurrence: 1 Oral Diet Order: Regular Last BM Date: 04/12/17 Lab: No results found for this visit on 03/28/17 (from the past 24 hour(s)). Physical Exam VS: BP 125/80 (BP Source: Arm, Right) | Pulse 54 | Temp 36.5 C (97.7 F) | Ht 188 cm (74.02") | Wt 75.5 kg (166 lb 7.2 oz) | SpO2 97% | BMI 21.36 kg/m2 General: Patient appears stated age, in no acute distress HEENT: Normocephalic, atraumatic Neck: No thyroidmegaly Cardiovascular: Well perfused Pulmonary: Unlabored respirations Extremities: No cyanosis, clubbing, or edema Skin: Warm and dry Psychiatric: Appropriate mood and affect Musculoskeletal: No atrophy Neurologic: Mental Status: alert Cognition: normal processing speed for casual conversation Speech: mildly dysarthric but clear Cranial Nerves: L facial droop, L neglect improving - still needs some cues to attend left - improving Motor: Right sided strength 5/5, Left sided strength 0/5 in all myotomes Clonus on left persists No change on examination today. Therapy Notes & Labs Reviewed. DO Tess Calloway Marcus - 04/13/2017 12:21 PM 3D [facility]DEL[facility] PHYSICAL THERAPY MOBILITY NOTE Patient participated in supplemental activity with a rehabilitation counsellor as directed by a rehabilitation therapist. Aide: Zechariah Gutierrez Date: 04/13/2017 * Nathan Samuels DO - 04/13/2017 8:47 AM 3D MODELER Formatting of this note may be different from the original. Physical Medicine & Rehabilitation Progress Note Today's Date: 04/13/2017 Admission Date: 03/28/2017 LOS: 16 days Principal Problem: Cerebrovascular accident (CVA) due to thrombosis of right middle cerebral artery (HCC) Active Problems: Left hemiparesis (HCC) UTI (urinary tract infection) Urinary retention Left-sided neglect Impaired mobility and ADLs Hyponatremia Assessment/Plan: Thomas Osei is a 41 y.o. male admitted to [facility] on 03/28/2017 with the following issues: stroke Rehabilitation Plan Rehabilitation: Patient will continue with comprehensive therapies including physical therapy, occupational therapy, speech & language pathology, specialized rehab nursing, neuropsychology and physiatry oversight. Goals: min-A Tentative discharge date: 04/26/17 Plan: Home with family assist and Day Program/Outpatient PT/OT DME: Shower chair, wheelchair TBD Daily Functional Update: Transfers Device Sit to Stand Transfer: Assistive Device: None (04/12/2017 8:45 AM) No Data Recorded Gait Device Assist Required Distance Gait: Assistive Device: None (L ankle wrapped) (04/10/2017 1:45 PM) No Data Recorded Gait Distance: 30 feet (04/11/2017 9:15 AM) Toileting Assist Required Equipment Toilet Transfer Toileting Assist: Maximum Assist (04/09/2017 10:30 AM) No Data Recorded Toilet Transfer Assist: Maximum assist (04/09/2017 10:30 AM) Dressing Lower Body LE Dressing Assist: Moderate Assist (04/10/2017 8:45 AM) Cognition - 04/11 Remembering Numbers: 7.50 sec. 4/8. 50% accy. 3.00 sec. 04/27 5% accy. 5 sec. 01/17 83% accy. Right MCA CVA (M2 occlusion) - cryptogenic, as per workup so far - ongoing left upper and lower extremity paresis, left facial droop, dysarthria , left neglect - LDL 118 - HbA1c- 5.2 - ECHO (TTE) - EF 55%, mild hypokinesis of basal to mid anteroseptal ji, normal atria size, no PFO - Hypercoagulable workup so far: Cardiolipin IgG :13, Cardiolipin IgM :13, Activated Protein C Resistance: 2.6, Factor 2 Mutation : negative, Negative immunophenotypic study, no evidence of paroxysmal nocturnal hemoglobinuria, BCR/ ABL1 normal - NICKO- no evidence of interarterial shunting. No thrombus. Plan: > ASA 325mg Qday > Atorvastatin 40mg Qday > Fluoxetine 20mgQday for motor recovery > Hematology follow up (Dr. Esparza 04/17/17) > Neurology stroke clinic follow up Left sided hemiplegia Left neglect Impaired mobility and ADLs - PT/OT - on fluoxetine for motor recovery after stroke Muscle spasms Possible spasticity LLE shooting pain - baclofen 20mg TID - gabapentin 300mg qhs - robaxin TID prn Cognitive impairment - NURSING CARE PARTNER cognitive remediation UTI - resolved > s/p cipro, ended 04/04 Urinary retention - resolved - likely related to UTI - last cath 03/27 > D/c doxazosin 04/10 > Repeat x3 BVI's to r/o retention: volumes 233 and 38 mL, will trend Hyponatremia - resolved - secondary to CVA > NaCl d/c 04/09 > Will monitor Back Pain - acute on chronic > Lidocaine patches > Naproxen Sodium Pain Management: Scheduled tylenol 1g TID. Oxycodone, robaxin, lidocaine patch , robaxin, naproxen all are prn Skin: There are no pressure sores currently. Bowel: continent of bowel, constipated, may need enema today Bladder: continent of bladder, BVIs 03/28-03/29 without concern for urinary retention Nutrition: Current diet: regular Mental Health: consult neuropsychology to provide support / counseling DVT Prophylaxis: Lovenox No change to plan DO Thomas Calloway Patient seen during therapy this morning without any signs of acute distress. No significant events noted overnight by nursing staff. Patient denies headache , chest pain, shortness of breath, abdominal pain, or myalgia. Objective Vital Signs: Last Filed Vital Signs: 24 Hour Range BP: 123/68 (04/13 599) Temp: 36.7 C (98.1 F) (04/13 599) Pulse: 60 (04/13 599) Respirations: 18 PER MINUTE (04/13 599) SpO2: 96 % (04/13 599) O2 Delivery: None (Room Air) (04/13 599) BP: (123)/(68) Temp: [36.7 C (98.1 F)] Pulse: [60] Respirations: [18 PER MINUTE] SpO2: [96 %] O2 Delivery: None (Room Air) Vitals: 04/11/17 0600 04/12/17 0401 04/13/17 0600 Weight: 74.7 kg (164 lb 10.9 oz) 74.6 kg (164 lb 7.4 oz) 75.3 kg (166 lb) Intake/Output Summary: (Last 24 hours) Intake/Output Summary (Last 24 hours) at 04/13/17 0847 Last data filed at 04/12/17 2013 Gross per 24 hour Intake 560 ml Output 500 ml Net 60 ml Stool Occurrence: 1 BVI (Bladder Scan)(mL): 282 milliliters (04/12/17 1409) Oral Diet Order: Regular Last BM Date: 04/12/17 Lab: No results found for this visit on 03/28/17 (from the past 24 hour(s)). Physical Exam VS: BP 123/68 (BP Source: Arm, Right) | Pulse 60 | Temp 36.7 C (98.1 F) | Ht 188 cm (74.02") | Wt 75.3 kg (166 lb) | SpO2 96% | BMI 21.3 kg/m2 General: Patient appears stated age, in no acute distress HEENT: Normocephalic, atraumatic Neck: No thyroidmegaly Cardiovascular: Well perfused Pulmonary: Unlabored respirations Extremities: No cyanosis, clubbing, or edema Skin: Warm and dry Psychiatric: Appropriate mood and affect Musculoskeletal: No atrophy Neurologic: Mental Status: alert Cognition: normal processing speed for casual conversation Speech: mildly dysarthric but clear Cranial Nerves: L facial droop, L neglect improving - still needs some cues to attend left - improving Motor: Right sided strength 5/5, Left sided strength 0/5 in all myotomes Clonus on left persists Therapy Notes & Labs Reviewed. DO Tess Calloway Tara - 04/12/2017 3:08 PM 3D [facility]DEL[facility] CLINICAL NUTRITION Clinical Nutrition Re-Eval Summary Nutrition Assessment of Patient: Current Oral Intake: Adequate Oral Diet Order: Regular 41 yo M with no significant PMH, admitted to [facility] on 03/28/17 s/p stroke of unknown etiology. BMI 21 and LDL 118. Pt and spouse previously educated on heart healthy diet strategies per request. Pt continues to eat well with no nutrition concerns. Weight is down 8#, but is reflective in Net I/O of -11.9L since admit. No pressure injuries. Last BM 04/10; bowel meds on board. Hyponatremia resolving; Na+ @ 136. Pt continues not be a risk. Will continue to monitor. Recommendation: Recommendation: Continue current diet order Theodora Gabriel RD, LD *[id number] * Joyce Trivedi MA - 04/12/2017 10:58 AM 3D MODELER SPEECH-LANGUAGE PATHOLOGY REHAB SPEECH DAILY NOTE SUMMARY: Patient was seen for two 30 min therapy sessions. Education with patient regarding right hemisphere dysfunction. 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 FREQUENCY TODAY: Continue plan of care. ACTIVITIES FOR THE DAY: Visual Scanning - Functional Task: Sustained Attention/Visual Scanning: Oral Reading News Articles: Large print, material was highlighted 1) Cued x4 to continue reading, patient stopped reading frequently requiring cues to continue. Scanning left did not appear to be a problem. Response to questions: 3/3 2) Cued x1 left. Mild to moderate difficulty with maintaining left/right scanning. Response to questions: 3/3. 3) Cued x2. left. Response to questions: 3/3. 4) Cued x3 let. Response to questions: 3/3. Patient reported chest pains. Informed RN, vitals were normal. Suspected problems with indigestion. Assisted patient back to bed. Continued attention tasks with working memory: 90% accy mod cues. Patient was able to self correct majority of errors. *Patient was provided with functional reading activities to complete over the weekend. Speech Campaign Worker Goals Will improve attention skills necessary for safety in the home with: Minimal to Moderate assist Will improve skills necessary for KENNY's and safety in the home with: Minimal to Moderate assist Speech Short Term Goals Will demonstrate higher level reasoning skills for return home with: Progressing Will demonstrate mathematical problem solving skills for ADLs with: Progressing Will demonstrate visual scanning skills with: Progressing Will demonstrate functional reading skills for ADLs with: Progressing Will demonstrate memory for safety sequences for transfer and ADLs with: Progressing Will demonstrate sustained attention for task performance with: Progressing Therapist: Joyce Akins/MAE/NURSING CARE PARTNER Date: 03/30/2017 * Geovanny Holloway MD - 04/12/2017 10:01 AM 3D MODELER Formatting of this note may be different from the original. ATTESTATION I personally performed the lima portions of the E/M visit, discussed case with resident and concur with resident documentation of history, physical exam, assessment, and treatment plan unless otherwise noted. Labs and vitals reviewed and stable. Follow-up repeat BVIs since discontinuation of Cardura. Staff name: Geovanny Holloway MD Date: 04/12/2017 Physical Medicine & Rehabilitation Progress Note Today's Date: 04/12/2017 Admission Date: 03/28/2017 LOS: 15 days Principal Problem: Cerebrovascular accident (CVA) due to thrombosis of right middle cerebral artery (HCC) Active Problems: Left hemiparesis (HCC) UTI (urinary tract infection) Urinary retention Left-sided neglect Impaired mobility and ADLs Hyponatremia Assessment/Plan: Thomas Osei is a 41 y.o. male admitted to [facility] on 03/28/2017 with the following issues: stroke Rehabilitation Plan Rehabilitation: Patient will continue with comprehensive therapies including physical therapy, occupational therapy, speech & language pathology, specialized rehab nursing, neuropsychology and physiatry oversight. Goals: min-A Tentative discharge date: 04/26/17 Plan: Home with family assist and Day Program/Outpatient PT/OT DME: Shower chair, wheelchair TBD Daily Functional Update: Transfers Device Sit to Stand Transfer: Assistive Device: None (04/11/2017 9:15 AM) No Data Recorded Gait Device Assist Required Distance Gait: Assistive Device: None (L ankle wrapped) (04/10/2017 1:45 PM) No Data Recorded Gait Distance: 30 feet (04/11/2017 9:15 AM) Toileting Assist Required Equipment Toilet Transfer Toileting Assist: Maximum Assist (04/09/2017 10:30 AM) No Data Recorded Toilet Transfer Assist: Maximum assist (04/09/2017 10:30 AM) Dressing Lower Body LE Dressing Assist: Moderate Assist (04/10/2017 8:45 AM) Cognition - 04/11 Remembering Numbers: 7.50 sec. 4/8. 50% accy. 3.00 sec. 04/27 5% accy. 5 sec. 01/17 83% accy. Right MCA CVA (M2 occlusion) - cryptogenic, as per workup so far - ongoing left upper and lower extremity paresis, left facial droop, dysarthria , left neglect - LDL 118 - HbA1c- 5.2 - ECHO (TTE) - EF 55%, mild hypokinesis of basal to mid anteroseptal ji, normal atria size, no PFO - Hypercoagulable workup so far: Cardiolipin IgG :13, Cardiolipin IgM :13, Activated Protein C Resistance: 2.6, Factor 2 Mutation : negative, Negative immunophenotypic study, no evidence of paroxysmal nocturnal hemoglobinuria, BCR/ ABL1 normal - NICKO- no evidence of interarterial shunting. No thrombus. Plan: > ASA 325mg Qday > Atorvastatin 40mg Qday > Fluoxetine 20mgQday for motor recovery > Hematology follow up (Dr. Esparza 04/17/17) > Neurology stroke clinic follow up Left sided hemiplegia Left neglect Impaired mobility and ADLs - PT/OT - on fluoxetine for motor recovery after stroke Muscle spasms Possible spasticity LLE shooting pain - baclofen 20mg TID - gabapentin 300mg qhs - robaxin TID prn Cognitive impairment - NURSING CARE PARTNER cognitive remediation UTI - resolved > s/p cipro, ended 04/04 Urinary retention - resolved - likely related to UTI - last cath 03/27 > D/c doxazosin 1/3 > Repeat x3 BVI's to r/o retention: volumes 233 and 38 mL, will trend Hyponatremia - resolved - secondary to CVA > NaCl d/c 1/2 > Will monitor Back Pain - acute on chronic > Lidocaine patches > Naproxen Sodium Pain Management: Scheduled tylenol 1g TID. Oxycodone, robaxin, lidocaine patch , robaxin, naproxen all are prn Skin: There are no pressure sores currently. Bowel: continent of bowel, constipated, may need enema today Bladder: continent of bladder, BVIs 03/28-03/29 without concern for urinary retention Nutrition: Current diet: regular Mental Health: consult neuropsychology to provide support / counseling DVT Prophylaxis: Regulo Galicia, DO Subjective No issues overnight. Pt sitting up in chair watching dog the [employer]. 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 Pain well controlled, denied insomnia. Objective Vital Signs: Last Filed Vital Signs: 24 Hour Range BP: 137/73 (04/12 400) Temp: 36.4 C (97.6 F) (04/12 400) Pulse: 59 (04/12 400) Respirations: 18 PER MINUTE (04/12 400) SpO2: 99 % (04/12 400) O2 Delivery: None (Room Air) (04/12 400) BP: (134-137)/(73-75) Temp: [36.4 C (97.6 F)-36.6 C (97.9 F)] Pulse: [57-59] Respirations: [16 PER MINUTE-18 PER MINUTE] SpO2: [98 %-99 %] O2 Delivery: None (Room Air) Intensity Pain Scale 0-10 (Pain 1): 0 (04/11/17 1555) Vitals: 04/10/17 0611 04/11/17 0600 04/12/17 0401 Weight: 75 kg (165 lb 5.5 oz) 74.7 kg (164 lb 10.9 oz) 74.6 kg (164 lb 7.4 oz) Intake/Output Summary: (Last 24 hours) Intake/Output Summary (Last 24 hours) at 04/12/17 1001 Last data filed at 04/12/17 0830 Gross per 24 hour Intake 540 ml Output 1700 ml Net -1160 ml Stool Occurrence: 1 BVI (Bladder Scan)(mL): 38 milliliters (04/11/17 1625) Oral Diet Order: Regular Last BM Date: 04/10/17 Lab: Results for orders placed or performed during the hospital encounter of (from the past 24 hour(s)) CBC Collection Time: 04/12/17 8:35 AM # # Low-High White Blood Cells 8.6 4.5 - 11.0 K/UL RBC 5.13 4.4 - 5.5 M/UL Hemoglobin 15.9 13.5 - 16.5 GM/DL Hematocrit 47.0 40 - 50 % MCV 91.7 80 - 100 FL MCH 30.9 26 - 34 PG MCHC 33.7 32.0 - 36.0 G/DL RDW 12.4 11 - 15 % Platelet Count 388 150 - 400 K/UL MPV 7.6 7 - 11 FL BASIC METABOLIC PANEL Collection Time: 04/12/17 8:35 AM # # Low-High Sodium 136 (L) 137 - 147 MMOL/L Potassium 4.0 3.5 - 5.1 MMOL/L Chloride 103 98 - 110 MMOL/L CO2 24 21 - 30 MMOL/L Anion Gap 9 3 - 12 Glucose 99 70 - 100 MG/DL Blood Urea Nitrogen 24 7 - 25 MG/DL Creatinine 0.85 0.4 - 1.24 MG/DL Calcium 9.6 8.5 - 10.6 MG/DL eGFR Non >60 >60 mL/min eGFR >60 >60 mL/min Physical Exam VS: BP 137/73 (BP Source: Arm, Right) | Pulse 59 | Temp 36.4 C (97.6 F) | Ht 188 cm (74.02") | Wt 74.6 kg (164 lb 7.4 oz) | SpO2 99% | BMI 21.11 kg/m2 GEN: awake, alert, NAD HEAD: normocephalic, atraumatic CV: RRR, no murmur RESP: CTAB, no w/r ABD: non-distended, +BS EXT: no edema or erythema in bilateral lower limbs SKIN: skin tears C/D/I NEURO: Mental Status: alert Cognition: normal processing speed for casual conversation Speech: mildly dysarthric but clear Cranial Nerves: L facial droop, L neglect improving - still needs some cues to attend left - improving Motor: Right sided strength 5/5, Left sided strength 0/5 in all myotomes Clonus on left persists Therapy Notes & Labs Reviewed. Luigi Galicia DO * Kortney Ruby - 04/11/2017 3:55 PM 3D MODELER Activity Therapy Patient participated in a pet therapy session with a volunteer, volunteers dog and this activity therapist. * Joyce Trivedi MA - 04/11/2017 10:25 AM 3D MODELER SPEECH-LANGUAGE PATHOLOGY REHAB SPEECH DAILY NOTE SUMMARY: Patient was seen for two 30 min therapy sessions. Education with patient regarding right hemisphere dysfunction. 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 FREQUENCY TODAY: Continue plan of care. ACTIVITIES FOR THE DAY: Visual Scanning - Functional Task: Sustained Attention: Auditory Commands: CT Luz - Level 2: 2-part commands: 98% accy mod cues to wait to respond. Moderate impulsivity. Level 3: 3-part commands: 82% accy moderate - max cues to wait and listen to commands. Level 3: 3-part commands: 94% accy no cues. Level 4: 2 part commands with conditions: 90% no cues. Education on sustained attention and strategies. Provided literature on Memory and Attention. Patient to read by tomorrow's session. Fit Brains: Count Rain Drops: Auditory/Visual Memory-Attention: Response Time: 3.44 sec. 8/10 80% accy. 2.69 sec. 6/10 60% accy. Remembering Numbers: 7.50 sec. 4/8. 50% accy. 3.00 sec. 1/20 5% accy. 5 sec. 10/12 83% accy. Feedback regarding therapy activities and performance. Provided strategies and encouragement. Speech Campaign Worker Goals Will improve attention skills necessary for safety in the home with: Minimal to Moderate assist Will improve skills necessary for KENNY's and safety in the home with: Minimal to Moderate assist Speech Short Term Goals Will demonstrate higher level reasoning skills for return home with: Progressing Will demonstrate mathematical problem solving skills for ADLs with: Progressing Will demonstrate visual scanning skills with: Progressing Will demonstrate functional reading skills for ADLs with: Progressing Will demonstrate memory for safety sequences for transfer and ADLs with: Progressing Will demonstrate sustained attention for task performance with: Progressing Therapist: Joyce Akins/MAE/SP Date: 03/30/2017 * Geovanny Holloway MD - 04/11/2017 9:19 AM 3D MODELER Formatting of this note may be different from the original. ATTESTATION I personally performed the lima portions of the E/M visit, discussed case with resident and concur with resident documentation of history, physical exam, assessment, and treatment plan unless otherwise noted. Labs and vitals reviewed and stable. Patient with skin tears related to kinesiotape, will provide daily dressing change with non-adherent dressing and loose tape to protect from further local injury. Staff name: Geovanny Holloway MD Date: 04/11/2017 Physical Medicine & Rehabilitation Progress Note Today's Date: 04/11/2017 Admission Date: 03/28/2017 LOS: 14 days Principal Problem: Cerebrovascular accident (CVA) due to thrombosis of right middle cerebral artery (HCC) Active Problems: Left hemiparesis (HCC) UTI (urinary tract infection) Urinary retention Left-sided neglect Impaired mobility and ADLs Hyponatremia Assessment/Plan: Thomas Osei is a 41 y.o. male admitted to [facility] on 03/28/2017 with the following issues: stroke Rehabilitation Plan Rehabilitation: Patient will continue with comprehensive therapies including physical therapy, occupational therapy, speech & language pathology, specialized rehab nursing, neuropsychology and physiatry oversight. Goals: min-A Tentative discharge date: 04/26/17 Plan: Home with family assist and Day Program/Outpatient PT/OT DME: Shower chair, wheelchair TBD Daily Functional Update: Transfers Device Sit to Stand Transfer: Assistive Device: None (04/10/2017 1:45 PM) No Data Recorded Gait Device Assist Required Distance Gait: Assistive Device: None (L ankle wrapped) (04/10/2017 1:45 PM) No Data Recorded Gait Distance: 30 feet (04/10/2017 1:45 PM) Toileting Assist Required Equipment Toilet Transfer Toileting Assist: Maximum Assist (04/09/2017 10:30 AM) No Data Recorded Toilet Transfer Assist: Maximum assist (04/09/2017 10:30 AM) Dressing Lower Body LE Dressing Assist: Moderate Assist (04/10/2017 8:45 AM) Cognition - 04/04 Patient up in the chair for his AM session. Reported back pain, informed nursing. Visual-Spatial: Writing Practice to Left Margin: Personal bio information - 6/7 min cues. Bold margin provided as a visual cue Sustained Attention/Working Memory: Simple - unscrambling 3 letters to form a word: 10/10 (noted increased difficulty and delayed response by 8th response. Visual Attention/Scanning: Right vs Left Hemisphere Luz Sorted Sequences: Trial 1: Level 1: 5/10 max cues. Trial 2: Level 1: 7/10 mod cues. Trial 3: Level 1: 9/10 min to mod cues Visual Scanning Luz: 2 targets: Trial 1: 76% accy 1 min 1 sec. 26 targets. Trial 2: Elevated Scanning Material: Min to mod cues ~60% accy patient missed last 3 rows and discontinued task. Oral Reading - Large Print short articles 1-3 short paragraphs: Articles x10, cued left x5. Response to questions: 80% accy min cues Map Readin% accy max cues. Speech Campaign Worker Goals Will improve attention skills necessary for safety in the home with: Minimal to Moderate assist. Progressing Will improve skills necessary for KENNY's and safety in the home with: Minimal to Moderate assist. Progressing Right MCA CVA (M2 occlusion) - cryptogenic, as per workup so far - ongoing left upper and lower extremity paresis, left facial droop, dysarthria , right gaze preference - LDL 118 - HbA1c- 5.2 - ECHO (TTE) - EF 55%, mild hypokinesis of basal to mid anteroseptal ji, normal atria size, no PFO - Hypercoagulable workup so far: Cardiolipin IgG :13, Cardiolipin IgM :13, Activated Protein C Resistance: 2.6, Factor 2 Mutation : negative, Negative immunophenotypic study, no evidence of paroxysmal nocturnal hemoglobinuria, BCR/ ABL1 normal - NICKO- no evidence of interarterial shunting. No thrombus. Plan: > ASA 325mg Qday > Atorvastatin 40mg Qday > Fluoxetine 20mgQday for motor recovery > Hematology follow up (Dr. Esparza 04/17/17) > Neurology stroke clinic follow up Left sided hemiplegia Left neglect Impaired mobility and ADLs - PT/OT - on fluoxetine for motor recovery after stroke Muscle spasms Possible spasticity LLE shooting pain - baclofen 20mg TID - gabapentin 300mg qhs - robaxin TID prn Cognitive impairment - NURSING [employer]ARE [employer]NER cognitive remediation UTI - resolved > s/p cipro, ended 04/04 Urinary retention - resolved - likely related to UTI - last cath 03/27 > D/c doxazosin 04/10 > Repeat x3 BVI's to r/o retention Hyponatremia - resolved - secondary to CVA > NaCl d/c 04/09 > Will monitor Back Pain - acute on chronic > Lidocaine patches > Naproxen Sodium Pain Management: Scheduled tylenol 1g TID. Oxycodone, robaxin, lidocaine patch , robaxin, naproxen all are prn Skin: There are no pressure sores currently. Bowel: continent of bowel, constipated, may need enema today Bladder: continent of bladder, BVIs 03/28-03/29 without concern for urinary retention Nutrition: Current diet: regular Mental Health: consult neuropsychology to provide support / counseling DVT Prophylaxis: Lovenox Luigi Galicia DO Subjective No acute events overnight. Pt and SO sleeping in room when seen on rounds. Pt nor SO had any questions or concerns when seen. Slept well last night, pain controlled. Objective Vital Signs: Last Filed Vital Signs: 24 Hour Range BP: 121/63 (04/11 599) Temp: 36.7 C (98 F) (04/11 599) Pulse: 58 (04/11 599) Respirations: 18 PER MINUTE (04/11 599) SpO2: 96 % (04/11 599) O2 Delivery: None (Room Air) (04/11 599) BP: (121-124)/(63-74) Temp: [36.1 C (97 F)-36.7 C (98 F)] Pulse: [58-62] Respirations: [18 PER MINUTE] SpO2: [96 %-98 %] O2 Delivery: None (Room Air) Vitals: 04/09/17 0543 04/10/17 0611 04/11/17599 Weight: 75.1 kg (165 lb 9.1 oz) 75 kg (165 lb 5.5 oz) 74.7 kg (164 lb 10.9 oz) Intake/Output Summary: (Last 24 hours) Intake/Output Summary (Last 24 hours) at 04/11/17 0920 Last data filed at 04/11/17 0900 Gross per 24 hour Intake 240 ml Output 0 ml Net 240 ml Stool Occurrence: 1 Oral Diet Order: Regular Last BM Date: 04/10/17 Lab: No results found for this visit on 03/28/17 (from the past 24 hour(s)). Physical Exam VS: BP 121/63 (BP Source: Arm, Right) | Pulse 58 | Temp 36.7 C (98 F) | Ht 188 cm (74.02") | Wt 74.7 kg (164 lb 10.9 oz) | SpO2 96% | BMI 21.14 kg/m2 GEN: awake, alert, NAD HEAD: normocephalic, atraumatic CV: RRR, no murmur RESP: CTAB, no w/r ABD: non-distended, +BS EXT: no edema or erythema in bilateral lower limbs SKIN: no obvious rashes or lesions NEURO: Mental Status: alert Cognition: normal processing speed for casual conversation Speech: mildly dysarthric but clear Cranial Nerves: L facial droop, L neglect improving - still needs some cues to attend left - improving Motor: Right sided strength 5/5, Left sided strength 0/5 in all myotomes Clonus on left persists Therapy Notes & Labs Reviewed. Luigi Galicia DO * Geovanny Holloway MD - 04/10/2017 10:37 AM 3D MODELER Formatting of this note may be different from the original. ATTESTATION I personally observed the resident performing the E/M, discussed case with resident, and concur with resident documentation of history, physical assessment and treatment plan unless otherwise noted. Labs and vitals reviewed and stable. Na 138. Discussed prognosis after stroke and discharge planning with patient and . Patient no longer with urinary retention, will discontinue Cardura and repeat bladder scans. Staff name: Geovanny Holloway MD Date: 04/10/2017 Physical Medicine & Rehabilitation Progress Note Today's Date: 04/10/2017 Admission Date: 03/28/2017 LOS: 13 days Principal Problem: Cerebrovascular accident (CVA) due to thrombosis of right middle cerebral artery (HCC) Active Problems: Left hemiparesis (HCC) UTI (urinary tract infection) Urinary retention Left-sided neglect Impaired mobility and ADLs Hyponatremia Assessment/Plan: Thomas Osei is a 41 y.o. male admitted to [facility] on 03/28/2017 with the following issues: stroke Rehabilitation Plan Rehabilitation: Patient will continue with comprehensive therapies including physical therapy, occupational therapy, speech & language pathology, specialized rehab nursing, neuropsychology and physiatry oversight. Goals: min-A Tentative discharge date: 04/26/17 Plan: Home with family assist and Day Program/Outpatient PT/OT DME: Shower chair, wheelchair TBD Daily Functional Update: Transfers Device Sit to Stand Transfer: Assistive Device: None (04/09/2017 8:35 AM) No Data Recorded Gait Device Assist Required Distance Gait: Assistive Device: Hand Hold Assist (on right) (04/09/2017 8:35 AM) No Data Recorded Gait Distance: 20 feet (04/09/2017 8:35 AM) Toileting Assist Required Equipment Toilet Transfer Toileting Assist: Maximum Assist (04/09/2017 10:30 AM) No Data Recorded Toilet Transfer Assist: Maximum assist (04/09/2017 10:30 AM) Dressing Lower Body LE Dressing Assist: Maximum Assist (04/08/2017 10:30 AM) Cognition - 04/04 Patient up in the chair for his AM session. Reported back pain, informed nursing. Visual-Spatial: Writing Practice to Left Margin: Personal bio information - 6/7 min cues. Bold margin provided as a visual cue Sustained Attention/Working Memory: Simple - unscrambling 3 letters to form a word: 10/10 (noted increased difficulty and delayed response by 8th response. Visual Attention/Scanning: Right vs Left Hemisphere Luz Sorted Sequences: Trial 1: Level 1: 5/10 max cues. Trial 2: Level 1: 7/10 mod cues. Trial 3: Level 1: 9/10 min to mod cues Visual Scanning Luz: 2 targets: Trial 1: 76% accy 1 min 1 sec. 26 targets. Trial 2: Elevated Scanning Material: Min to mod cues ~60% accy patient missed last 3 rows and discontinued task. Oral Reading - Large Print short articles 1-3 short paragraphs: Articles x10, cued left x5. Response to questions: 80% accy min cues Map Readin% accy max cues. Speech Care Home Goals Will improve attention skills necessary for safety in the home with: Minimal to Moderate assist. Progressing Will improve skills necessary for KENNY's and safety in the home with: Minimal to Moderate assist. Progressing Right MCA CVA (M2 occlusion) - cryptogenic, as per workup so far - ongoing left upper and lower extremity paresis, left facial droop, dysarthria , right gaze preference - LDL 118 - HbA1c- 5.2 - ECHO (TTE) - EF 55%, mild hypokinesis of basal to mid anteroseptal ji, normal atria size, no PFO - Hypercoagulable workup so far: Cardiolipin IgG :13, Cardiolipin IgM :13, Activated Protein C Resistance: 2.6, Factor 2 Mutation : negative, Negative immunophenotypic study, no evidence of paroxysmal nocturnal hemoglobinuria, BCR/ ABL1 normal - NICKO- no evidence of interarterial shunting. No thrombus. Plan: > ASA 325mg Qday > Atorvastatin 40mg Qday > Fluoxetine 20mgQday for motor recovery > Hematology follow up (Dr. Esparza 04/17/17) > Neurology stroke clinic follow up Left sided hemiplegia Left neglect Impaired mobility and ADLs - PT/OT - on fluoxetine for motor recovery after stroke Muscle spasms Possible spasticity LLE shooting pain - baclofen 20mg TID - gabapentin 300mg qhs - robaxin TID prn Cognitive impairment - NURSING [employer]ARE [employer]NER cognitive remediation UTI - resolved > s/p cipro, ended 04/04 Urinary retention - resolved - likely related to UTI - last cath 03/27 > D/c doxazosin, will likely repeat x3 BVI's 04/11 Hyponatremia - resolved - secondary to CVA > NaCl d/c 04/09 > will monitor Back Pain - acute on chronic > Lidocaine patches > Naproxen Sodium Pain Management: Scheduled tylenol 1g TID. Oxycodone, robaxin, lidocaine patch , robaxin, naproxen all are prn Skin: There are no pressure sores currently. Bowel: continent of bowel, constipated, may need enema today Bladder: continent of bladder, BVIs 03/28-03/29 without concern for urinary retention Nutrition: Current diet: regular Mental Health: consult neuropsychology to provide support / counseling DVT Prophylaxis: Lovenox Luigi Galicia, DO Subjective No events overnight. Pt resting in WC with family at bedside in room when seen on rounds. Pt informed that he would no longer have to take salt supplementation which he was excited about. Pt had several questions regarding his stroke which were all answered. No other questions or concerns when seen. Objective Vital Signs: Last Filed Vital Signs: 24 Hour Range BP: 123/65 (04/10 610) Temp: 36.7 C (98.1 F) (04/10 610) Pulse: 56 (04/10 610) Respirations: 17 PER MINUTE (04/10 610) SpO2: 97 % (04/10 610) O2 Delivery: None (Room Air) (04/10 610) BP: (123-124)/(65-79) Temp: [36.4 C (97.5 F)-36.7 C (98.1 F)] Pulse: [56-62] Respirations: [16 PER MINUTE-17 PER MINUTE] SpO2: [97 %-99 %] O2 Delivery: None (Room Air) Vitals: 04/08/17 0657 04/09/17 0543 04/10/1711 Weight: 73.1 kg (161 lb 3.2 oz) 75.1 kg (165 lb 9.1 oz) 75 kg (165 lb 5.5 oz) Intake/Output Summary: (Last 24 hours) Intake/Output Summary (Last 24 hours) at 04/10/17 1038 Last data filed at 04/10/17 0900 Gross per 24 hour Intake 480 ml Output 0 ml Net 480 ml Stool Occurrence: 1 Oral Diet Order: Regular Last BM Date: 04/08/17 Lab: Results for orders placed or performed during the hospital encounter of (from the past 24 hour(s)) CBC Collection Time: 04/10/17 7:58 AM # # Low-High White Blood Cells 8.3 4.5 - 11.0 K/UL RBC 4.77 4.4 - 5.5 M/UL Hemoglobin 14.9 13.5 - 16.5 GM/DL Hematocrit 44.4 40 - 50 % MCV 93.1 80 - 100 FL MCH 31.3 26 - 34 PG MCHC 33.7 32.0 - 36.0 G/DL RDW 12.6 11 - 15 % Platelet Count 375 150 - 400 K/UL MPV 7.3 7 - 11 FL BASIC METABOLIC PANEL Collection Time: 04/10/17 7:58 AM # # Low-High Sodium 138 137 - 147 MMOL/L Potassium 4.2 3.5 - 5.1 MMOL/L Chloride 104 98 - 110 MMOL/L CO2 27 21 - 30 MMOL/L Anion Gap 7 3 - 12 Glucose 97 70 - 100 MG/DL Blood Urea Nitrogen 19 7 - 25 MG/DL Creatinine 0.85 0.4 - 1.24 MG/DL Calcium 9.4 8.5 - 10.6 MG/DL eGFR Non >60 >60 mL/min eGFR >60 >60 mL/min Physical Exam VS: BP 123/65 (BP Source: Arm, Right) | Pulse 56 | Temp 36.7 C (98.1 F) | Ht 188 cm (74.02") | Wt 75 kg (165 lb 5.5 oz) | SpO2 97% | BMI 21.22 kg/m2 GEN: awake, alert, NAD HEAD: normocephalic, atraumatic CV: RRR, no murmur RESP: CTAB, no w/r ABD: non-distended, +BS EXT: no edema or erythema in bilateral lower limbs SKIN: no obvious rashes or lesions NEURO: Mental Status: alert Cognition: normal processing speed for casual conversation Speech: mildly dysarthric but clear Cranial Nerves: L facial droop, L neglect improving - still needs some cues to attend left - improving Motor: Right sided strength 5/5, Left sided strength 0/5 in all myotomes Clonus on left Therapy Notes & Labs Reviewed. Luigi Galicia DO * Joyce Trivedi MA - 04/10/2017 10:17 AM 3D MODELER SPEECH-LANGUAGE PATHOLOGY REHAB SPEECH DAILY NOTE SUMMARY: Patient was seen for two 30 min therapy sessions. Education with patient regarding right hemisphere dysfunction. 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 FREQUENCY TODAY: Continue plan of care. ACTIVITIES FOR THE DAY: Visual Scanning - Functional Task: Writing Practice: Writing a check x2: 1) 4/6 w/ min cues. 2) 5/6 min cues. Checkbook Management/Balancin/3. Feedback provided. Patient verbalized concern regarding the difficulty he had on this task. Visual Reasoning/Attention: Which Shape is Different - complex shapes. 3/10 mod to max cues. Response time was slow. Task was difficult for pt. Patient verbalized concern with difficulty of task and expressed worry about returning to work. Sustained Attention: Word Math Problems: 81% accy. Patient required repetition of math problems an average of 2-3 times. Mr. Osei was able to use a calculator *Awareness training and education ongoing. Speech Care Home Goals Will improve attention skills necessary for safety in the home with: Minimal to Moderate assist Will improve skills necessary for KENNY's and safety in the home with: Minimal to Moderate assist Speech Short Term Goals Will demonstrate higher level reasoning skills for return home with: Progressing Will demonstrate mathematical problem solving skills for ADLs with: Progressing Will demonstrate visual scanning skills with: Progressing Will demonstrate functional reading skills for ADLs with: Progressing Will demonstrate memory for safety sequences for transfer and ADLs with: Progressing Will demonstrate sustained attention for task performance with: Progressing Therapist: Joyce Akins/MAE/SP Date: 03/30/2017 * Joyce Trivedi, STANTON - 04/09/2017 9:38 AM 3D MODELER SPEECH-LANGUAGE PATHOLOGY REHAB SPEECH DAILY NOTE SUMMARY: Patient was seen for two 30 min therapy sessions. Education with patient regarding right hemisphere dysfunction. Patient discussed in team conference. 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 FREQUENCY TODAY: Continue plan of care. ACTIVITIES FOR THE DAY: Visual Scanning - Functional Task: Writing Practice: Thank You Note: no difficulty going to the left margin. Spelling errors x2. Patient able to correct when cued. Short paragraph about his children: Patient formulated 2 sentences. Minor spelling errors, patient self corrected. Ticket Number: Right vs Left Hemisphere Luz: level 1: 5/5 min cues. Level 2: 3/5. Sustained Attention: Quick Count: Level 2-1: 05/18. Level 1-2: 09/15. Which Side has More: Level 1: 12/16. Level 1-2: 12/16. Level 2-3: 12/16 Oral Reading of lengthy news article: Scanning errors x5. Recall of information: 70% accy.min to mod cues. Feedback provided each session regarding rationale for tasks and performance. Education ongoing regarding RHD. Speech Care Home Goals Will improve attention skills necessary for safety in the home with: Minimal to Moderate assist Will improve skills necessary for KENNY's and safety in the home with: Minimal to Moderate assist Speech Short Term Goals Will demonstrate higher level reasoning skills for return home with: Progressing Will demonstrate mathematical problem solving skills for ADLs with: Progressing Will demonstrate visual scanning skills with: Progressing Will demonstrate functional reading skills for ADLs with: Progressing Will demonstrate memory for safety sequences for transfer and ADLs with: Progressing Will demonstrate sustained attention for task performance with: Progressing Therapist: Joyce Akins/MAE/SP Date: 03/30/2017 * Geovanny Holloway MD - 04/09/2017 9:28 AM 3D MODELER Formatting of this note may be different from the original. ATTESTATION I personally observed the resident performing the E/M, discussed case with resident, and concur with resident documentation of history, physical assessment and treatment plan unless otherwise noted. Labs and vitals reviewed and stable. Tolerating hand splint. Na improved, will discontinue NaCl. Left hemiplegia, stable. Staff name: Geovanny Holloway MD Date: 04/09/2017 Physical Medicine & Rehabilitation Progress Note Today's Date: 04/09/2017 Admission Date: 03/28/2017 LOS: 12 days Principal Problem: Cerebrovascular accident (CVA) due to thrombosis of right middle cerebral artery (HCC) Active Problems: Left hemiparesis (HCC) UTI (urinary tract infection) Urinary retention Left-sided neglect Impaired mobility and ADLs Hyponatremia Assessment/Plan: Thomas Osei is a 41 y.o. male admitted to [facility] on 03/28/2017 with the following issues: stroke Rehabilitation Plan Rehabilitation: Patient will continue with comprehensive therapies including physical therapy, occupational therapy, speech & language pathology, specialized rehab nursing, neuropsychology and physiatry oversight. Goals: min-A Tentative discharge date: 04/26/17 Plan: Home with family assist and Day Program/Outpatient PT/OT DME: Shower chair, wheelchair TBD Daily Functional Update: Transfers Device Sit to Stand Transfer: Assistive Device: None (04/08/2017 4:00 PM) No Data Recorded Gait Device Assist Required Distance Gait: Assistive Device: Hand Hold Assist;Shopping Cart (Ambulation around elevated mat with RUE) (04/03/2017 8:30 AM) No Data Recorded Gait Distance: 50 feet (04/04/2017 8:30 AM) Standing Balance Static Dynamic No Data Recorded No Data Recorded Toileting Assist Required Equipment Toilet Transfer Toileting Assist: Maximum Assist (04/03/2017 8:45 AM) No Data Recorded Toilet Transfer Assist: Maximum assist (block R knee, weightshifting, verbal cues) (04/03/2017 8:45 AM) Dressing Lower Body LE Dressing Assist: Maximum Assist (04/08/2017 10:30 AM) Cognition - 04/04 Patient up in the chair for his AM session. Reported back pain, informed nursing. Visual-Spatial: Writing Practice to Left Margin: Personal bio information - 6/7 min cues. Bold margin provided as a visual cue Sustained Attention/Working Memory: Simple - unscrambling 3 letters to form a word: 10/10 (noted increased difficulty and delayed response by 8th response. Visual Attention/Scanning: Right vs Left Hemisphere Luz Sorted Sequences: Trial 1: Level 1: 5/10 max cues. Trial 2: Level 1: 7/10 mod cues. Trial 3: Level 1: 9/10 min to mod cues Visual Scanning Luz: 2 targets: Trial 1: 76% accy 1 min 1 sec. 26 targets. Trial 2: Elevated Scanning Material: Min to mod cues ~60% accy patient missed last 3 rows and discontinued task. Oral Reading - Large Print short articles 1-3 short paragraphs: Articles x10, cued left x5. Response to questions: 80% accy min cues Map Readin% accy max cues. Speech Care Home Goals Will improve attention skills necessary for safety in the home with: Minimal to Moderate assist. Progressing Will improve skills necessary for KENNY's and safety in the home with: Minimal to Moderate assist. Progressing Right MCA CVA (M2 occlusion) - cryptogenic, as per workup so far - ongoing left upper and lower extremity paresis, left facial droop, dysarthria , right gaze preference - LDL 118 - HbA1c- 5.2 - ECHO (TTE) - EF 55%, mild hypokinesis of basal to mid anteroseptal ji, normal atria size, no PFO - Hypercoagulable workup so far: Cardiolipin IgG :13, Cardiolipin IgM :13, Activated Protein C Resistance: 2.6, Factor 2 Mutation : negative, Negative immunophenotypic study, no evidence of paroxysmal nocturnal hemoglobinuria, BCR/ ABL1 normal - NICKO- no evidence of interarterial shunting. No thrombus. Plan: > ASA 325mg Qday > Atorvastatin 40mg Qday > Fluoxetine 20mgQday for motor recovery > Hematology follow up (Dr. Esparza 04/17/17) > Neurology stroke clinic follow up Left sided hemiplegia Left neglect Impaired mobility and ADLs - PT/OT - on fluoxetine for motor recovery after stroke Muscle spasms Possible spasticity LLE shooting pain - baclofen 20mg TID - gabapentin 300mg qhs - robaxin TID prn Cognitive impairment - NURSING CARE PARTNER cognitive remediation UTI - resolved - WBC 18 on 03/28 - Afebrile, no tachycardia noted, no other signs of infection - CXR - normal - UA - many bacteria, 1+ leukocytes, nitrite neg - Started Fosfomycin at acute hospitalization - Urine cx jimenez sensitive Plan > due to male sex and straight caths required from urinary retention, will treat this as complicated UTI > s/p cipro, ended 04/04 Urinary retention - resolved - likely related to UTI - last cath 03/27 > doxazosin 2mg PO Qday; may wean as able Hyponatremia - improving - secondary to CVA > Na 04/09 138. Will d/c NaCl 17meq qday > will monitor > can titrate off completely starting 04/09/17 Back Pain - acute on chronic > Lidocaine patches > Naproxen Sodium Pain Management: Scheduled tylenol 1g TID. Oxycodone, robaxin, lidocaine patch , robaxin, naproxen all are prn Skin: There are no pressure sores currently. Bowel: continent of bowel, constipated, may need enema today Bladder: continent of bladder, BVIs 03/28-03/29 without concern for urinary retention Nutrition: Current diet: regular Mental Health: consult neuropsychology to provide support / counseling DVT Prophylaxis: Regulo Galicia, DO Subjective No events overnight. Pt seen in hallway working with therapies. Pt stated he has been wearing his night splint all night and it has been fitting well. No other complaints when seen. Objective Vital Signs: Last Filed Vital Signs: 24 Hour Range BP: 129/69 (04/09 531) Temp: 36.2 C (97.2 F) (04/09 531) Pulse: 55 (04/09 531) Respirations: 18 PER MINUTE (04/09 531) SpO2: 95 % (04/09 531) O2 Delivery: None (Room Air) (04/09 531) BP: (129-134)/(69-82) Temp: [36.2 C (97.2 F)-36.5 C (97.7 F)] Pulse: [55-67] Respirations: [18 PER MINUTE] SpO2: [95 %-98 %] O2 Delivery: None (Room Air) Vitals: 04/07/17 0700 04/08/17 0657 04/09/17 0543 Weight: 77 kg (169 lb 12.1 oz) 73.1 kg (161 lb 3.2 oz) 75.1 kg (165 lb 9.1 oz) Intake/Output Summary: (Last 24 hours) Intake/Output Summary (Last 24 hours) at 04/09/17 0929 Last data filed at 04/09/17 0758 Gross per 24 hour Intake 440 ml Output 350 ml Net 90 ml Stool Occurrence: 1 Oral Diet Order: Regular Last BM Date: 04/07/17 Lab: No results found for this visit on 03/28/17 (from the past 24 hour(s)). Physical Exam VS: BP 129/69 (BP Source: Arm, Right) | Pulse 55 | Temp 36.2 C (97.2 F) | Ht 188 cm (74.02") | Wt 75.1 kg (165 lb 9.1 oz) | SpO2 95% | BMI 21.25 kg/m2 No changes in exam from yesterday GEN: awake, alert, NAD HEAD: normocephalic, atraumatic CV: RRR, no murmur RESP: CTAB, no w/r ABD: non-distended, +BS EXT: no edema or erythema in bilateral lower limbs SKIN: no obvious rashes or lesions MSK: MAS 1 L shoulder, MAS 2+ L HF, 1+ L KE and WE NEURO: Mental Status: alert Orientation: fully oriented Cognition: normal processing speed for casual conversation Speech: mildly dysarthric but clear Cranial Nerves: L facial droop, L neglect improving - still needs some cues to attend left - improving Motor: Right sided strength 5/5, Left sided strength 0/5 in all myotomes Clonus on left Therapy Notes & Labs Reviewed. Luigi Galicia DO * Lindsey Frey - 04/08/2017 1:15 PM 3D [facility]DEL[facility] SPEECH-LANGUAGE PATHOLOGY REHAB SPEECH DAILY NOTE SUMMARY: Patient was seen for one 60 min therapy sessions. 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 FREQUENCY TODAY: Continue plan of care. ACTIVITIES FOR THE DAY: Alternating Attention: Pt completed card sorting task sorting even/odd cards. NURSING CARE PARTNER instructed pt to begin with placing only even cards down and then when NURSING CARE PARTNER said "switch" to then only place odd cards down. Pt completed task with 70% accuracy and moderate cues Functional reading task on Constant therapy luz: 90% accuracy with minimal cues Inference reading task: 85% accuracy with minimal cues Visual-spatial/attention Word search targeting neglect: 85% completed independently with min-mod cues Pattern recreation: 78% with moderate-max cues: pt demonstrated difficulty with impulsivity Symbol matching constant therapy: 92% with mod cues, symbol matching worksheet: 8/10 with minimal cues Speech Short Term Goals Will demonstrate higher level reasoning skills for return home with: Progressing Will demonstrate mathematical problem solving skills for ADLs with: Progressing Will demonstrate visual scanning skills with: Progressing Will demonstrate functional reading skills for ADLs with: Progressing Will demonstrate memory for safety sequences for transfer and ADLs with: Progressing Will demonstrate sustained attention for task performance with: Progressing Therapist: Lindsey Frey M.A. [facility]ARE [facility] Pager: [phone] Date: 04/08/17 * Kortney Lennon MD - 04/08/2017 7:00 AM 3D [employer]DEL[employer] Formatting of this note may be different from the original. ATTESTATION I personally performed the lima portions of the E/M visit, discussed case with resident and concur with resident documentation of history, physical exam, assessment, and treatment plan unless otherwise noted. Labs and VS reviewed and stable. L WHO overnight and at rest. Staff name: Kortney Lennon MD Date: 04/08/2017 Physical Medicine & Rehabilitation Progress Note Today's Date: 04/08/2017 Admission Date: 03/28/2017 LOS: 11 days Principal Problem: Cerebrovascular accident (CVA) due to thrombosis of right middle cerebral artery (HCC) Active Problems: Left hemiparesis (HCC) UTI (urinary tract infection) Urinary retention Left-sided neglect Impaired mobility and ADLs Hyponatremia 04/06: Will work with OT to get a brace wearing schedule for his L hand splint. 04/07: No changes 04/08: No changes Assessment/Plan: Thomas Osei is a 41 y.o. male admitted to [facility] on 03/28/2017 with the following issues: stroke Rehabilitation Plan Rehabilitation: Patient will continue with comprehensive therapies including physical therapy, occupational therapy, speech & language pathology, specialized rehab nursing, neuropsychology and physiatry oversight. Goals: min-A Tentative discharge date: 04/26/17 Plan: Home with family assist and Day Program/Outpatient PT/OT DME: Shower chair, wheelchair TBD Daily Functional Update: Transfers Device Sit to Stand Transfer: Assistive Device: None (04/07/2017 11:00 AM) No Data Recorded Gait Device Assist Required Distance Gait: Assistive Device: Hand Hold Assist;Shopping Cart (Ambulation around elevated mat with RUE) (04/03/2017 8:30 AM) No Data Recorded Gait Distance: 50 feet (04/04/2017 8:30 AM) Standing Balance Static Dynamic No Data Recorded No Data Recorded Toileting Assist Required Equipment Toilet Transfer Toileting Assist: Maximum Assist (04/03/2017 8:45 AM) No Data Recorded Toilet Transfer Assist: Maximum assist (block R knee, weightshifting, verbal cues) (04/03/2017 8:45 AM) Dressing Lower Body LE Dressing Assist: Moderate Assist (04/07/2017 9:30 AM) Cognition - 04/04 Patient up in the chair for his AM session. Reported back pain, informed nursing. Visual-Spatial: Writing Practice to Left Margin: Personal bio information - 6/7 min cues. Bold margin provided as a visual cue Sustained Attention/Working Memory: Simple - unscrambling 3 letters to form a word: 10/10 (noted increased difficulty and delayed response by 8th response. Visual Attention/Scanning: Right vs Left Hemisphere Luz Sorted Sequences: Trial 1: Level 1: 5/10 max cues. Trial 2: Level 1: 7/10 mod cues. Trial 3: Level 1: 9/10 min to mod cues Visual Scanning Luz: 2 targets: Trial 1: 76% accy 1 min 1 sec. 26 targets. Trial 2: Elevated Scanning Material: Min to mod cues ~60% accy patient missed last 3 rows and discontinued task. Oral Reading - Large Print short articles 1-3 short paragraphs: Articles x10, cued left x5. Response to questions: 80% accy min cues Map Readin% accy max cues. Speech Campaign Worker Goals Will improve attention skills necessary for safety in the home with: Minimal to Moderate assist. Progressing Will improve skills necessary for KENNY's and safety in the home with: Minimal to Moderate assist. Progressing Right MCA CVA (M2 occlusion) - cryptogenic, as per workup so far - ongoing left upper and lower extremity paresis, left facial droop, dysarthria , right gaze preference - LDL 118 - HbA1c- 5.2 - ECHO (TTE) - EF 55%, mild hypokinesis of basal to mid anteroseptal ji, normal atria size, no PFO - Hypercoagulable workup so far: Cardiolipin IgG :13, Cardiolipin IgM :13, Activated Protein C Resistance: 2.6, Factor 2 Mutation : negative, Negative immunophenotypic study, no evidence of paroxysmal nocturnal hemoglobinuria, BCR/ ABL1 normal - NICKO- no evidence of interarterial shunting. No thrombus. Plan: > ASA 325mg Qday > Atorvastatin 40mg Qday > Fluoxetine 20mgQday for motor recovery > Hematology follow up (Dr. Esparza 04/17/17) > Neurology stroke clinic follow up Left sided hemiplegia Left neglect Impaired mobility and ADLs - PT/OT - on fluoxetine for motor recovery after stroke Muscle spasms Possible spasticity LLE shooting pain - baclofen 20mg TID - gabapentin 300mg qhs - robaxin TID prn Cognitive impairment - NURSING CARE PARTNER cognitive remediation UTI - resolved - WBC 18 on 03/28 - Afebrile, no tachycardia noted, no other signs of infection - CXR - normal - UA - many bacteria, 1+ leukocytes, nitrite neg - Started Fosfomycin at acute hospitalization - Urine cx jimenez sensitive Plan > due to male sex and straight caths required from urinary retention, will treat this as complicated UTI > s/p cipro, ended 04/04 Urinary retention - resolved - likely related to UTI - last cath 03/27 > doxazosin 2mg PO Qday; may wean as able Hyponatremia - improving - secondary to CVA > NaCl 17meq qday > will monitor > can titrate off completely starting 04/09/17 Back Pain - acute on chronic > Lidocaine patches > Naproxen Sodium Pain Management: Scheduled tylenol 1g TID. Oxycodone, robaxin, lidocaine patch , robaxin, naproxen all are prn Skin: There are no pressure sores currently. Bowel: continent of bowel, constipated, may need enema today Bladder: continent of bladder, BVIs 03/28-03/29 without concern for urinary retention Nutrition: Current diet: regular Mental Health: consult neuropsychology to provide support / counseling DVT Prophylaxis: Heparin Jomar Sargent MD Subjective NEON. Pt reports having a good night, slept well. He had some muscle spasms in his leg that woke him up, but was able to fall back asleep. He's wearing his wrist brace overnight - it's going well. Objective Vital Signs: Last Filed Vital Signs: 24 Hour Range BP: 114/67 (04/08 599) Temp: 36.7 C (98.1 F) (04/08 599) Pulse: 80 (04/08 599) Respirations: 18 PER MINUTE (04/08 599) SpO2: 98 % (04/08 599) O2 Delivery: None (Room Air) (04/08 599) BP: (110-114)/(67-69) Temp: [36.7 C (98.1 F)-36.9 C (98.5 F)] Pulse: [75-80] Respirations: [16 PER MINUTE-18 PER MINUTE] SpO2: [95 %-98 %] O2 Delivery: None (Room Air) Intensity Pain Scale 0-10 (Pain 1): 6 (04/07/17 0815) Vitals: 04/06/17 0500 04/07/17 0700 04/08/17 0657 Weight: 79.4 kg (175 lb) 77 kg (169 lb 12.1 oz) 73.1 kg (161 lb 3.2 oz) Intake/Output Summary: (Last 24 hours) Intake/Output Summary (Last 24 hours) at 04/08/17 0700 Last data filed at 04/08/17 0200 Gross per 24 hour Intake 240 ml Output 1060 ml Net -820 ml Stool Occurrence: 1 Oral Diet Order: Regular Last BM Date: 04/07/17 Lab: No results found for this visit on 03/28/17 (from the past 24 hour(s)). Physical Exam VS: BP 114/67 (BP Source: Arm, Right) | Pulse 80 | Temp 36.7 C (98.1 F) | Ht 188 cm (74.02") | Wt 73.1 kg (161 lb 3.2 oz) | SpO2 98% | BMI 20.69 kg/m2 No changes in exam from yesterday GEN: awake, alert, NAD HEAD: normocephalic, atraumatic CV: RRR, no murmur RESP: CTAB, no w/r ABD: non-distended, +BS EXT: no edema or erythema in bilateral lower limbs SKIN: no obvious rashes or lesions MSK: MAS 1 L shoulder, MAS 2+ L HF, 1+ L KE and WE NEURO: Mental Status: alert Orientation: fully oriented Cognition: normal processing speed for casual conversation Speech: mildly dysarthric but clear Cranial Nerves: L facial droop, L neglect improving - still needs some cues to attend left - improving Motor: Right sided strength 5/5, Left sided strength 0/5 in all myotomes Clonus on left Therapy Notes & Labs Reviewed. Jomar Sargent MD * Kortney Lennon MD - 04/07/2017 7:00 AM 3D [employer]DEL[employer] Formatting of this note may be different from the original. ATTESTATION I personally performed the lima portions of the E/M visit, discussed case with resident and concur with resident documentation of history, physical exam, assessment, and treatment plan unless otherwise noted. Staff name: Kortney Lennon MD Date: 04/07/2017 Physical Medicine & Rehabilitation Progress Note Today's Date: 04/07/2017 Admission Date: 03/28/2017 LOS: 10 days Principal Problem: Cerebrovascular accident (CVA) due to thrombosis of right middle cerebral artery (HCC) Active Problems: Left hemiparesis (HCC) UTI (urinary tract infection) Urinary retention Left-sided neglect Impaired mobility and ADLs Hyponatremia 04/06: Will work with OT to get a brace wearing schedule for his L hand splint. 04/07: No changes Assessment/Plan: Thomas Osei is a 41 y.o. male admitted to [facility] on 03/28/2017 with the following issues: stroke Rehabilitation Plan Rehabilitation: Patient will continue with comprehensive therapies including physical therapy, occupational therapy, speech & language pathology, specialized rehab nursing, neuropsychology and physiatry oversight. Goals: min-A Tentative discharge date: 04/26/17 Plan: Home with family assist and Day Program/Outpatient PT/OT DME: Shower chair, wheelchair TBD Daily Functional Update: Transfers Device Sit to Stand Transfer: Assistive Device: None (04/05/2017 8:30 AM) No Data Recorded Gait Device Assist Required Distance Gait: Assistive Device: Hand Hold Assist;Shopping Cart (Ambulation around elevated mat with RUE) (04/03/2017 8:30 AM) No Data Recorded Gait Distance: 50 feet (04/04/2017 8:30 AM) Standing Balance Static Dynamic No Data Recorded No Data Recorded Toileting Assist Required Equipment Toilet Transfer Toileting Assist: Maximum Assist (04/03/2017 8:45 AM) No Data Recorded Toilet Transfer Assist: Maximum assist (block R knee, weightshifting, verbal cues) (04/03/2017 8:45 AM) Dressing Lower Body LE Dressing Assist: Moderate Assist (04/03/2017 8:45 AM) Cognition - 04/04 Patient up in the chair for his AM session. Reported back pain, informed nursing. Visual-Spatial: Writing Practice to Left Margin: Personal bio information - 6/7 min cues. Bold margin provided as a visual cue Sustained Attention/Working Memory: Simple - unscrambling 3 letters to form a word: 10/10 (noted increased difficulty and delayed response by 8th response. Visual Attention/Scanning: Right vs Left Hemisphere Luz Sorted Sequences: Trial 1: Level 1: 5/10 max cues. Trial 2: Level 1: 7/10 mod cues. Trial 3: Level 1: 9/10 min to mod cues Visual Scanning Luz: 2 targets: Trial 1: 76% accy 1 min 1 sec. 26 targets. Trial 2: Elevated Scanning Material: Min to mod cues ~60% accy patient missed last 3 rows and discontinued task. Oral Reading - Large Print short articles 1-3 short paragraphs: Articles x10, cued left x5. Response to questions: 80% accy min cues Map Readin% accy max cues. Speech Campaign Worker Goals Will improve attention skills necessary for safety in the home with: Minimal to Moderate assist. Progressing Will improve skills necessary for KENNY's and safety in the home with: Minimal to Moderate assist. Progressing Right MCA CVA (M2 occlusion) - cryptogenic, as per workup so far - ongoing left upper and lower extremity paresis, left facial droop, dysarthria , right gaze preference - LDL 118 - HbA1c- 5.2 - ECHO (TTE) - EF 55%, mild hypokinesis of basal to mid anteroseptal ji, normal atria size, no PFO - Hypercoagulable workup so far: Cardiolipin IgG :13, Cardiolipin IgM :13, Activated Protein C Resistance: 2.6, Factor 2 Mutation : negative, Negative immunophenotypic study, no evidence of paroxysmal nocturnal hemoglobinuria, BCR/ ABL1 normal - NICKO- no evidence of interarterial shunting. No thrombus. Plan: > ASA 325mg Qday > Atorvastatin 40mg Qday > Fluoxetine 20mgQday for motor recovery > Hematology follow up (Dr. Esparza 04/17/17) > Neurology stroke clinic follow up Left sided hemiplegia Left neglect Impaired mobility and ADLs - PT/OT - on fluoxetine for motor recovery after stroke Muscle spasms Possible spasticity LLE shooting pain - baclofen 20mg TID - gabapentin 300mg qhs - robaxin TID prn Cognitive impairment - NURSING CARE PARTNER cognitive remediation UTI - resolved - WBC 18 on 03/28 - Afebrile, no tachycardia noted, no other signs of infection - CXR - normal - UA - many bacteria, 1+ leukocytes, nitrite neg - Started Fosfomycin at acute hospitalization - Urine cx jimenez sensitive Plan > due to male sex and straight caths required from urinary retention, will treat this as complicated UTI > s/p cipro, ended 04/04 Urinary retention - resolved - likely related to UTI - last cath 03/27 > doxazosin 2mg PO Qday; may wean as able Hyponatremia - improving - secondary to CVA > NaCl 17meq qday > will monitor > can titrate off completely starting 04/09/17 Back Pain - acute on chronic > Lidocaine patches > Naproxen Sodium Pain Management: Scheduled tylenol 1g TID. Oxycodone, robaxin, lidocaine patch , robaxin, naproxen all are prn Skin: There are no pressure sores currently. Bowel: continent of bowel, constipated, may need enema today Bladder: continent of bladder, BVIs 03/28-03/29 without concern for urinary retention Nutrition: Current diet: regular Mental Health: consult neuropsychology to provide support / counseling DVT Prophylaxis: Heparin Jomar Sargent MD Subjective NEON. Seen sleeping this morning, reports being a little tired today. Denies any other acute complaints. Objective Vital Signs: Last Filed Vital Signs: 24 Hour Range BP: 130/74 (04/07 644) Temp: 36.6 C (97.8 F) (04/07 644) Pulse: 53 (04/07 644) Respirations: 18 PER MINUTE (04/07 644) SpO2: 96 % (04/07 644) O2 Delivery: None (Room Air) (04/07 644) BP: (130-146)/(74-78) Temp: [36.5 C (97.7 F)-36.6 C (97.8 F)] Pulse: [53-65] Respirations: [18 PER MINUTE] SpO2: [96 %-97 %] O2 Delivery: None (Room Air) Intensity Pain Scale 0-10 (Pain 1): 10 (04/06/17 0830) Vitals: 04/04/17 0450 04/05/17 0438 04/06/17 0500 Weight: 71.4 kg (157 lb 6.5 oz) 73.4 kg (161 lb 13.1 oz) 79.4 kg (175 lb) Intake/Output Summary: (Last 24 hours) Intake/Output Summary (Last 24 hours) at 04/07/17 0700 Last data filed at 04/07/17 0644 Gross per 24 hour Intake 580 ml Output 1050 ml Net -470 ml Stool Occurrence: 1 Oral Diet Order: Regular Last BM Date: 04/06/17 Lab: No results found for this visit on 03/28/17 (from the past 24 hour(s)). Physical Exam VS: BP 130/74 (BP Source: Arm, Right) | Pulse 53 | Temp 36.6 C (97.8 F) | Ht 188 cm (74.02") | Wt 79.4 kg (175 lb) | SpO2 96% | BMI 22.46 kg/m2 No changes in exam from yesterday GEN: awake, alert, NAD HEAD: normocephalic, atraumatic CV: RRR, no murmur RESP: CTAB, no w/r ABD: non-distended, +BS EXT: no edema or erythema in bilateral lower limbs SKIN: no obvious rashes or lesions MSK: MAS 1 L shoulder, MAS 2+ L HF, 1+ L KE and WE NEURO: Mental Status: alert Orientation: fully oriented Cognition: normal processing speed for casual conversation Speech: mildly dysarthric but clear Cranial Nerves: L facial droop, L neglect improving - still needs some cues to attend left Motor: Right sided strength 5/5, Left sided strength 0/5 in all myotomes Clonus on left Therapy Notes & Labs Reviewed. Jomar Sargent MD * Kortney Lennon MD - 04/06/2017 7:14 AM 3D MODELER Formatting of this note may be different from the original. ATTESTATION I personally performed the lima portions of the E/M visit, discussed case with resident and concur with resident documentation of history, physical exam, assessment, and treatment plan unless otherwise noted. Staff name: Kortney Lennon MD Date: 04/06/2017 Physical Medicine & Rehabilitation Progress Note Today's Date: 04/06/2017 Admission Date: 03/28/2017 LOS: 9 days Principal Problem: Cerebrovascular accident (CVA) due to thrombosis of right middle cerebral artery (HCC) Active Problems: Left hemiparesis (HCC) UTI (urinary tract infection) Urinary retention Left-sided neglect Impaired mobility and ADLs Hyponatremia 04/06: Will work with OT to get a brace wearing schedule for his L hand splint. Assessment/Plan: Thomas Osei is a 41 y.o. male admitted to [facility] on 03/28/2017 with the following issues: stroke Rehabilitation Plan Rehabilitation: Patient will continue with comprehensive therapies including physical therapy, occupational therapy, speech & language pathology, specialized rehab nursing, neuropsychology and physiatry oversight. Goals: min-A Tentative discharge date: 04/26/17 Plan: Home with family assist and Day Program/Outpatient PT/OT DME: Shower chair, wheelchair TBD Daily Functional Update: Transfers Device Sit to Stand Transfer: Assistive Device: None (04/05/2017 8:30 AM) No Data Recorded Gait Device Assist Required Distance Gait: Assistive Device: Hand Hold Assist;Shopping Cart (Ambulation around elevated mat with RUE) (04/03/2017 8:30 AM) No Data Recorded Gait Distance: 50 feet (04/04/2017 8:30 AM) Standing Balance Static Dynamic No Data Recorded No Data Recorded Toileting Assist Required Equipment Toilet Transfer Toileting Assist: Maximum Assist (04/03/2017 8:45 AM) No Data Recorded Toilet Transfer Assist: Maximum assist (block R knee, weightshifting, verbal cues) (04/03/2017 8:45 AM) Dressing Lower Body LE Dressing Assist: Moderate Assist (04/03/2017 8:45 AM) Cognition - 04/04 Patient up in the chair for his AM session. Reported back pain, informed nursing. Visual-Spatial: Writing Practice to Left Margin: Personal bio information - 6/7 min cues. Bold margin provided as a visual cue Sustained Attention/Working Memory: Simple - unscrambling 3 letters to form a word: 10/10 (noted increased difficulty and delayed response by 8th response. Visual Attention/Scanning: Right vs Left Hemisphere Luz Sorted Sequences: Trial 1: Level 1: 5/10 max cues. Trial 2: Level 1: 7/10 mod cues. Trial 3: Level 1: 9/10 min to mod cues Visual Scanning Ulz: 2 targets: Trial 1: 76% accy 1 min 1 sec. 26 targets. Trial 2: Elevated Scanning Material: Min to mod cues ~60% accy patient missed last 3 rows and discontinued task. Oral Reading - Large Print short articles 1-3 short paragraphs: Articles x10, cued left x5. Response to questions: 80% accy min cues Map Readin% accy max cues. Speech Care Home Goals Will improve attention skills necessary for safety in the home with: Minimal to Moderate assist. Progressing Will improve skills necessary for KENNY's and safety in the home with: Minimal to Moderate assist. Progressing Right MCA CVA (M2 occlusion) - cryptogenic, as per workup so far - ongoing left upper and lower extremity paresis, left facial droop, dysarthria , right gaze preference - LDL 118 - HbA1c- 5.2 - ECHO (TTE) - EF 55%, mild hypokinesis of basal to mid anteroseptal ji, normal atria size, no PFO - Hypercoagulable workup so far: Cardiolipin IgG :13, Cardiolipin IgM :13, Activated Protein C Resistance: 2.6, Factor 2 Mutation : negative, Negative immunophenotypic study, no evidence of paroxysmal nocturnal hemoglobinuria, BCR/ ABL1 normal - NICKO- no evidence of interarterial shunting. No thrombus. Plan: > ASA 325mg Qday > Atorvastatin 40mg Qday > Fluoxetine 20mgQday for motor recovery > Hematology follow up (Dr. Esparza 04/17/17) > Neurology stroke clinic follow up Left sided hemiplegia Left neglect Impaired mobility and ADLs - PT/OT - on fluoxetine for motor recovery after stroke Muscle spasms Possible spasticity LLE shooting pain - baclofen 20mg TID - gabapentin 300mg qhs - robaxin TID prn Cognitive impairment - NURSING CARE PARTNER cognitive remediation UTI - resolved - WBC 18 on 03/28 - Afebrile, no tachycardia noted, no other signs of infection - CXR - normal - UA - many bacteria, 1+ leukocytes, nitrite neg - Started Fosfomycin at acute hospitalization - Urine cx jimenez sensitive Plan > due to male sex and straight caths required from urinary retention, will treat this as complicated UTI > s/p cipro, ended 04/04 Urinary retention - resolved - likely related to UTI - last cath 03/27 > doxazosin 2mg PO Qday; may wean as able Hyponatremia - improving - secondary to CVA > NaCl 17meq qday > will monitor > can titrate off completely starting 04/09/17 Back Pain - acute on chronic > Lidocaine patches > Naproxen Sodium Pain Management: Scheduled tylenol 1g TID. Oxycodone, robaxin, lidocaine patch , robaxin, naproxen all are prn Skin: There are no pressure sores currently. Bowel: continent of bowel, constipated, may need enema today Bladder: continent of bladder, BVIs 03/28-03/29 without concern for urinary retention Nutrition: Current diet: regular Mental Health: consult neuropsychology to provide support / counseling DVT Prophylaxis: Heparin Jomar Sargent MD Subjective NEON. Pt feels good this morning. Pain/spasms doing better. Reports having his hand close more - wore splint overnight. Denies any other acute complaints. Objective Vital Signs: Last Filed Vital Signs: 24 Hour Range BP: 117/66 (04/06 0500) Temp: 36.4 C (97.5 F) (04/06 0500) Pulse: 52 (04/06 0500) Respirations: 18 PER MINUTE (04/06 0500) SpO2: 98 % (04/06 0500) O2 Delivery: None (Room Air) (04/06 0500) BP: (117-135)/(66-79) Temp: [36.4 C (97.5 F)-36.6 C (97.9 F)] Pulse: [52-57] Respirations: [18 PER MINUTE] SpO2: [98 %] O2 Delivery: None (Room Air) Intensity Pain Scale 0-10 (Pain 1): 10 (04/05/17 0830) Vitals: 04/04/17 0450 04/05/17 0438 04/06/17 0500 Weight: 71.4 kg (157 lb 6.5 oz) 73.4 kg (161 lb 13.1 oz) 79.4 kg (175 lb) Intake/Output Summary: (Last 24 hours) Intake/Output Summary (Last 24 hours) at 04/06/17 0714 Last data filed at 04/06/17 0500 Gross per 24 hour Intake 240 ml Output 1630 ml Net -1390 ml Stool Occurrence: 1 Oral Diet Order: Regular Last BM Date: 04/05/17 Lab: Results for orders placed or performed during the hospital encounter of (from the past 24 hour(s)) CBC Collection Time: 04/05/17 7:56 AM # # Low-High White Blood Cells 9.6 4.5 - 11.0 K/UL RBC 4.75 4.4 - 5.5 M/UL Hemoglobin 14.9 13.5 - 16.5 GM/DL Hematocrit 44.2 40 - 50 % MCV 93.1 80 - 100 FL MCH 31.4 26 - 34 PG MCHC 33.7 32.0 - 36.0 G/DL RDW 12.5 11 - 15 % Platelet Count 399 150 - 400 K/UL MPV 7.4 7 - 11 FL BASIC METABOLIC PANEL Collection Time: 04/05/17 7:56 AM # # Low-High Sodium 133 (L) 137 - 147 MMOL/L Potassium 3.9 3.5 - 5.1 MMOL/L Chloride 101 98 - 110 MMOL/L CO2 24 21 - 30 MMOL/L Anion Gap 8 3 - 12 Glucose 112 (H) 70 - 100 MG/DL Blood Urea Nitrogen 20 7 - 25 MG/DL Creatinine 0.85 0.4 - 1.24 MG/DL Calcium 9.3 8.5 - 10.6 MG/DL eGFR Non >60 >60 mL/min eGFR >60 >60 mL/min Physical Exam VS: BP 117/66 (BP Source: Arm, Right) | Pulse 52 | Temp 36.4 C (97.5 F) | Ht 188 cm (74.02") | Wt 79.4 kg (175 lb) | SpO2 98% | BMI 22.46 kg/m2 No changes in exam from yesterday GEN: awake, alert, NAD HEAD: normocephalic, atraumatic CV: RRR, no murmur RESP: CTAB, no w/r ABD: non-distended, +BS EXT: no edema or erythema in bilateral lower limbs SKIN: no obvious rashes or lesions MSK: MAS 1 L shoulder, MAS 2+ L HF, 1+ L KE and WE NEURO: Mental Status: alert Orientation: fully oriented Cognition: normal processing speed for casual conversation Speech: mildly dysarthric but clear Cranial Nerves: L facial droop, L neglect improving - still needs some cues to attend left Motor: Right sided strength 5/5, Left sided strength 0/5 in all myotomes Clonus on left Therapy Notes & Labs Reviewed. Jomar Sargent MD * Theodora Gabriel - 04/05/2017 3:24 PM 3D [facility] CLINICAL NUTRITION Clinical Nutrition Education & Re-Eval Summary Nutrition Assessment of Patient: Current Oral Intake: Adequate Oral Diet Order: Regular 41 yo M with no significant PMH, admitted to [facility] on 03/28/17 s/p stroke of unknown etiology. Per previous RD notes, pt spouse with request for nutrition education. Some education received on acute side. Followed up today for further education and was present. Encouraged increased healthy fats, limiting saturated fats, increased fiber with fruits, vegetables, and whole grains, and using the MyPlate method for building meals. Provided tips/examples of quick meal ideas for pt with stressful, busy work schedule and skipped lunches. Left materials and RD contact info. Pt with healthy BMI of 21 and no wt loss to report. 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 PO intakes of 90-100% x 3 meals/day. No shakes needed. Pt has no nutrition concerns. No pressure injuries or GI distress. Trace edema present. Labs/meds reviewed. Pt is not an acute nutrition risk; will continue to monitor. Recommendation: Continue current diet. Intervention / Plan: Provided follow up stroke education for pt and spouse Theodora Gabriel RD, LD *[id number] * Joyce Trivedi MA - 04/05/2017 8:32 AM 3D MODEL[facility] SPEECH-LANGUAGE PATHOLOGY REHAB SPEECH DAILY NOTE SUMMARY: Patient was seen for two 30 min therapy sessions. Education with patient regarding right hemisphere dysfunction. 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 FREQUENCY TODAY: Continue plan of care. ACTIVITIES FOR THE DAY: Patient up in the chair for both therapy sessions. Reported back pain, informed nursing during AM session. No report of pain during session 2. Visual-Spatial/Reasoning: Visual Reasoning: Matching shapes field of 4 - 90% accy Word Search: 1) 6 words, 6x6 grid: 100% accy mod cues. 2) 9 words, 6x6 grid: 9/9 mod cues. 3) 8 words 6x6 grid: 8/8 mod cues Visual Scanning - Functional Task: Oral reading articles of interest to the patient (cycling) Articles x4 1) Smaller print that was slightly enlarged. Moderate- max cues to scan left. Patient distracted by article because he was interested in the material. 2) Print was slightly larger: Moderate cues, scanning slightly improved. Good retention of material. 3) No change in size of font, shorter article, mod cues to attend and complete, continued to be distracted because of interest in article. 4) No change in size of font, shorter paragraphs: Min to mod cues to scan left. *Good activity for patient when articles of interest to him. Noted improvement in visual scanning over trials. Speech Short Term Goals Will demonstrate higher level reasoning skills for return home with: Progressing Will demonstrate mathematical problem solving skills for ADLs with: Progressing Will demonstrate visual scanning skills with: Progressing Will demonstrate functional reading skills for ADLs with: Progressing Will demonstrate memory for safety sequences for transfer and ADLs with: Progressing Will demonstrate sustained attention for task performance with: Progressing Therapist: Joyce Akins/MAE/SP Date: 03/30/2017 * Geovanny Holloway MD - 04/05/2017 7:17 AM 3D MODEL[employer] Formatting of this note may be different from the original. ATTESTATION I personally observed the resident performing the E/M, discussed case with resident, and concur with resident documentation of history, physical assessment and treatment plan unless otherwise noted. Labs and vitals reviewed and stable. Left sided pain still a barrier, titrating baclofen and Neurontin. Continue modalities, taping, positioning, stretching with therapy. Staff name: Geovanny Holloway MD Date: 04/05/2017 Physical Medicine & Rehabilitation Progress Note Today's Date: 04/05/2017 Admission Date: 03/28/2017 LOS: 8 days Principal Problem: Cerebrovascular accident (CVA) due to thrombosis of right middle cerebral artery (HCC) Active Problems: Left hemiparesis (HCC) UTI (urinary tract infection) Urinary retention Left-sided neglect Impaired mobility and ADLs Hyponatremia Assessment/Plan: Thomas Osei is a 41 y.o. male admitted to [facility] on 03/28/2017 with the following issues: stroke Rehabilitation Plan Rehabilitation: Patient will continue with comprehensive therapies including physical therapy, occupational therapy, speech & language pathology, specialized rehab nursing, neuropsychology and physiatry oversight. Goals: min-A Tentative discharge date: 04/26/17 Plan: Home with family assist and Day Program/Outpatient PT/OT DME: Shower chair, wheelchair TBD Daily Functional Update: Transfers Device Sit to Stand Transfer: Assistive Device: None (04/04/2017 8:30 AM) No Data Recorded Gait Device Assist Required Distance Gait: Assistive Device: Hand Hold Assist;Shopping Cart (Ambulation around elevated mat with RUE) (04/03/2017 8:30 AM) No Data Recorded Gait Distance: 50 feet (04/04/2017 8:30 AM) Standing Balance Static Dynamic No Data Recorded No Data Recorded Toileting Assist Required Equipment Toilet Transfer Toileting Assist: Maximum Assist (04/03/2017 8:45 AM) No Data Recorded Toilet Transfer Assist: Maximum assist (block R knee, weightshifting, verbal cues) (04/03/2017 8:45 AM) Dressing Lower Body LE Dressing Assist: Moderate Assist (04/03/2017 8:45 AM) Cognition - 04/04 Patient up in the chair for his AM session. Reported back pain, informed nursing. Visual-Spatial: Writing Practice to Left Margin: Personal bio information - 6/7 min cues. Bold margin provided as a visual cue Sustained Attention/Working Memory: Simple - unscrambling 3 letters to form a word: 10/10 (noted increased difficulty and delayed response by 8th response. Visual Attention/Scanning: Right vs Left Hemisphere Luz Sorted Sequences: Trial 1: Level 1: 5/10 max cues. Trial 2: Level 1: 7/10 mod cues. Trial 3: Level 1: 9/10 min to mod cues Visual Scanning Luz: 2 targets: Trial 1: 76% accy 1 min 1 sec. 26 targets. Trial 2: Elevated Scanning Material: Min to mod cues ~60% accy patient missed last 3 rows and discontinued task. Oral Reading - Large Print short articles 1-3 short paragraphs: Articles x10, cued left x5. Response to questions: 80% accy min cues Map Readin% accy max cues. Speech Campaign Worker Goals Will improve attention skills necessary for safety in the home with: Minimal to Moderate assist. Progressing Will improve skills necessary for KENNY's and safety in the home with: Minimal to Moderate assist. Progressing Right MCA CVA (M2 occlusion) - cryptogenic, as per workup so far - ongoing left upper and lower extremity paresis, left facial droop, dysarthria , right gaze preference - LDL 118 - HbA1c- 5.2 - ECHO (TTE) - EF 55%, mild hypokinesis of basal to mid anteroseptal ji, normal atria size, no PFO - Hypercoagulable workup so far: Cardiolipin IgG :13, Cardiolipin IgM :13, Activated Protein C Resistance: 2.6, Factor 2 Mutation : negative, Negative immunophenotypic study, no evidence of paroxysmal nocturnal hemoglobinuria, BCR/ ABL1 normal - NICKO- no evidence of interarterial shunting. No thrombus. Plan: > ASA 325mg Qday > Atorvastatin 40mg Qday > Fluoxetine 20mgQday for motor recovery > Hematology follow up (Dr. Esparza 04/17/17) > Neurology stroke clinic follow up Left sided hemiplegia Left neglect Impaired mobility and ADLs - PT/OT - on fluoxetine for motor recovery after stroke Muscle spasms Possible spasticity LLE shooting pain - baclofen 20mg TID - gabapentin 300mg qhs - robaxin TID prn Cognitive impairment - NURSING CARE PARTNER cognitive remediation UTI - resolved - WBC 18 on 03/28 - Afebrile, no tachycardia noted, no other signs of infection - CXR - normal - UA - many bacteria, 1+ leukocytes, nitrite neg - Started Fosfomycin at acute hospitalization - Urine cx jimenez sensitive Plan > due to male sex and straight caths required from urinary retention, will treat this as complicated UTI > s/p cipro, ended 04/04 Urinary retention - resolved - likely related to UTI - last cath 03/27 > doxazosin 2mg PO Qday; may wean as able Hyponatremia - improving - secondary to CVA > NaCl 17meq qday > will monitor > can titrate off completely starting 04/09/17 Back Pain - acute on chronic > Lidocaine patches > Naproxen Sodium Pain Management: Scheduled tylenol 1g TID. Oxycodone, robaxin, lidocaine patch , robaxin, naproxen all are prn Skin: There are no pressure sores currently. Turn patient every 2 hours while in bed and perform pressure relief in wheelchair every 20 minutes for 20 seconds. Bowel: continent of bowel, constipated, may need enema today Bladder: continent of bladder, BVIs 03/28-03/29 without concern for urinary retention Nutrition: Current diet: regular Mental Health: consult neuropsychology to provide support / counseling DVT Prophylaxis: Heparin Jomar Sargent MD Subjective No overnight events. Patient denies any spasms last night. Pt had large BM after prn bowel meds given. Pt without any other complaints this morning. Objective Vital Signs: Last Filed Vital Signs: 24 Hour Range BP: 125/72 (04/05 438) Temp: 36.7 C (98.1 F) (04/05 438) Pulse: 53 (04/05 438) Respirations: 18 PER MINUTE (04/05 438) SpO2: 96 % (04/05 438) O2 Delivery: None (Room Air) (04/05 438) BP: (124-133)/(72-94) Temp: [36.4 C (97.5 F)-36.7 C (98.1 F)] Pulse: [53-88] Respirations: [18 PER MINUTE] SpO2: [96 %] O2 Delivery: None (Room Air) Intensity Pain Scale 0-10 (Pain 1): 2 (04/04/17 1200) Vitals: 04/02/17 0600 04/04/17 0450 04/05/17 0438 Weight: 77.1 kg (169 lb 15.6 oz) 71.4 kg (157 lb 6.5 oz) 73.4 kg (161 lb 13.1 oz ) Intake/Output Summary: (Last 24 hours) Intake/Output Summary (Last 24 hours) at 04/05/17 0717 Last data filed at 04/05/17 0700 Gross per 24 hour Intake 600 ml Output 2000 ml Net -1400 ml Stool Occurrence: 1 Last BM Date: 04/04/17 Lab: Results for orders placed or performed during the hospital encounter of (from the past 24 hour(s)) CBC Collection Time: 04/05/17 7:56 AM # # Low-High White Blood Cells 9.6 4.5 - 11.0 K/UL RBC 4.75 4.4 - 5.5 M/UL Hemoglobin 14.9 13.5 - 16.5 GM/DL Hematocrit 44.2 40 - 50 % MCV 93.1 80 - 100 FL MCH 31.4 26 - 34 PG MCHC 33.7 32.0 - 36.0 G/DL RDW 12.5 11 - 15 % Platelet Count 399 150 - 400 K/UL MPV 7.4 7 - 11 FL BASIC METABOLIC PANEL Collection Time: 04/05/17 7:56 AM # # Low-High Sodium 133 (L) 137 - 147 MMOL/L Potassium 3.9 3.5 - 5.1 MMOL/L Chloride 101 98 - 110 MMOL/L CO2 24 21 - 30 MMOL/L Anion Gap 8 3 - 12 Glucose 112 (H) 70 - 100 MG/DL Blood Urea Nitrogen 20 7 - 25 MG/DL Creatinine 0.85 0.4 - 1.24 MG/DL Calcium 9.3 8.5 - 10.6 MG/DL eGFR Non >60 >60 mL/min eGFR >60 >60 mL/min Physical Exam VS: BP 125/72 (BP Source: Arm, Right) | Pulse 53 | Temp 36.7 C (98.1 F) | Ht 188 cm (74.02") | Wt 73.4 kg (161 lb 13.1 oz) | SpO2 96% | BMI 20.77 kg/m2 GEN: awake, alert, NAD, seen working with therapy HEAD: normocephalic, atraumatic CV: RRR, no murmur RESP: CTAB, no w/r ABD: non-distended, +BS EXT: no edema or erythema in bilateral lower limbs SKIN: no obvious rashes or lesions MSK: MAS 1 L shoulder, MAS 2+ L HF, 1+ L KE and WE NEURO: Mental Status: alert Orientation: fully oriented Cognition: normal processing speed for casual conversation Speech: mildly dysarthric but clear Cranial Nerves: L facial droop, L neglect improving - still needs some cues to attend left Motor: Right sided strength 5/5, Left sided strength 0/5 in all myotomes Clonus on left Therapy Notes & Labs Reviewed. Jomar Sargent MD * Julia Chakraborty - 04/04/2017 10:20 AM 3D MODELER [id number] Pt was seen for mood and cog screening with no family or significant others present. Pt was alert, oriented, and open/responsive to inquiry. The utility of testing was discussed and pt agreed to participate. Pt was cooperative and appeared to put forth adequate effort. Speech was WNL and thought processes were connected and logical to content of conversation. Pt was distractible at times, but benefited from reminders or cues to task at hand. Eye contact was within social norms and non-verbal behaviors were appropriate to context. Mood and affect were congruent and euthymic. Pt reported mood as "okay." He discussed spending [place] with his family in the hospital and reported spending time with his family as a pleasant, relaxing experience. He reported his legs have been cramping at night, which has resulted in some difficulty relaxing. He reported having a "positive mindset" and cited "getting back to normal" as one of his goals for recovery. The [place] Cognitive Assessment (MoCA) was administered and indicated mild cognitive impairment (MoCA=20/30) with errors in cognitive switching, figure copy, clock drawing, auditory attention (serial 7s, go/no go), sentence repetition, verbal fluency, delayed recall (3/5; pt improved with category/ multiple choice cuing), and orientation to day of week. Screen of anxiety and depressive symptomology was administered and results were unremarkable (KANG-7=4; GDS-15=1). Pt endorsed anxiety symptoms over the last 2 weeks of difficulty controlling worries nearly every day and feeling nervous for several days. He reported depression symptoms over the last week of loss of interest. Screening feedback was provided to pt and pt was open and receptive to feedback. Cognitive compensatory strategies were reviewed and discussed to include using environmental cues to assist with orientation, memory book or chunking of information, taking notes or asking for handouts, taking breaks as needed, and breaking tasks into smaller pieces. Pt's coping strategies were reinforced and reviewed and I encouraged pt to practice coping skills such as relaxed breathing as needed. Pts progress, utilization of coping skills, and goals for rehab therapies were supported. Will continue to follow and assess cognition, mood, pain management, and coping. Diagnosis: R41.89 Cognitive Impairment; I63.311 CVA d/t thrombosis of R middle cerebral artery Recommendations: 1) Post discharge pt will need to follow up with provider(s) regarding cognitive impairment. Pt should not return to work or driving until/unless cleared by physician(s). 2) Pt should not be expected to remember detailed information, make complex decisions without assistance, or independently report on physical/mental health. Pt may benefit from reminders to use cognitive compensatory strategies ( such as a memory book, taking additional time, breaking tasks into smaller steps , or chunking of information). Julia Chakraborty, Ph.D. Neurorehabilitation Psychology Postdoctoral Fellow Pager #: [phone] * Joyce Trivedi MA - 04/04/2017 8:02 AM 3D [employer] SPEECH-LANGUAGE PATHOLOGY REHAB SPEECH DAILY NOTE SUMMARY: Patient was seen for two 30 min therapy sessions. Education with patient regarding right hemisphere dysfunction. 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 FREQUENCY TODAY: Continue plan of care. ACTIVITIES FOR THE DAY: Patient up in the chair for his AM session. Reported back pain, informed nursing. Visual-Spatial: Writing Practice to Left Margin: Personal bio information - 6/7 min cues. Bold margin provided as a visual cue Sustained Attention/Working Memory: Simple - unscrambling 3 letters to form a word: 10/10 (noted increased difficulty and delayed response by 8th response. Visual Attention/Scanning: Right vs Left Hemisphere Luz Sorted Sequences: Trial 1: Level 1: 5/10 max cues. Trial 2: Level 1: 7/10 mod cues. Trial 3: Level 1: 9/10 min to mod cues Visual Scanning Luz: 2 targets: Trial 1: 76% accy 1 min 1 sec. 26 targets. Trial 2: Elevated Scanning Material: Min to mod cues ~60% accy patient missed last 3 rows and discontinued task. Oral Reading - Large Print short articles 1-3 short paragraphs: Articles x10, cued left x5. Response to questions: 80% accy min cues Map Readin% accy max cues. Speech Campaign Worker Goals Will improve attention skills necessary for safety in the home with: Minimal to Moderate assist. Progressing Will improve skills necessary for KENNY's and safety in the home with: Minimal to Moderate assist. Progressing Speech Short Term Goals Will demonstrate higher level reasoning skills for return home with: Progressing Will demonstrate mathematical problem solving skills for ADLs with: Progressing Will demonstrate visual scanning skills with: Progressing Will demonstrate functional reading skills for ADLs with: Progressing Will demonstrate memory for safety sequences for transfer and ADLs with: Progressing Will demonstrate sustained attention for task performance with: Progressing Therapist: Joyce Akins/MAE/SP Date: 03/30/2017 * Geovanny Holloway MD - 04/04/2017 7:12 AM 3D [employer]DEL[employer] Formatting of this note may be different from the original. ATTESTATION I personally performed the lima portions of the E/M visit, discussed case with resident and concur with resident documentation of history, physical exam, assessment, and treatment plan unless otherwise noted. Labs and vitals reviewed and stable. Patient slept better last night with the increase in baclofen and initiation of Neurontin. Staff name: Geovanny Holloway MD Date: 04/04/2017 Physical Medicine & Rehabilitation Progress Note Today's Date: 04/04/2017 Admission Date: 03/28/2017 LOS: 7 days Principal Problem: Cerebrovascular accident (CVA) due to thrombosis of right middle cerebral artery (HCC) Active Problems: Left hemiparesis (HCC) UTI (urinary tract infection) Urinary retention Left-sided neglect Impaired mobility and ADLs Hyponatremia Assessment/Plan: Thomas Osei is a 41 y.o. male admitted to [facility] on 03/28/2017 with the following issues: stroke Rehabilitation Plan Rehabilitation: Patient will continue with comprehensive therapies including physical therapy, occupational therapy, speech & language pathology, specialized rehab nursing, neuropsychology and physiatry oversight. Goals: min-A Tentative discharge date: 04/26/17 Plan: Home with family assist and Day Program/Outpatient PT/OT DME: Shower chair, wheelchair TBD Daily Functional Update: Transfers Device Sit to Stand Transfer: Assistive Device: None (04/03/2017 8:45 AM) No Data Recorded Gait Device Assist Required Distance Gait: Assistive Device: Hand Hold Assist;Shopping Cart (Ambulation around elevated mat with RUE) (04/03/2017 8:30 AM) No Data Recorded Gait Distance: 30 feet (x2 AM session, x3 PM session and 45 feet x 1 pM) (2016 8:30 AM) Standing Balance Static Dynamic No Data Recorded No Data Recorded Toileting Assist Required Equipment Toilet Transfer Toileting Assist: Maximum Assist (04/03/2017 8:45 AM) No Data Recorded Toilet Transfer Assist: Maximum assist (block R knee, weightshifting, verbal cues) (04/03/2017 8:45 AM) Dressing Lower Body LE Dressing Assist: Moderate Assist (04/03/2017 8:45 AM) Cognition - 04/02 Discussed right hemisphere dysfunction at the onset of the session, reviewed again at the end of each session. Working with patient on awareness training of impulsive responding and left neglect. Visual-Spatial: Right vs Left Hemisphere Luz: Delivery Route: Trial 1: Level 2: 0/4. Level 1:09/11. Trial 2: Level 2: 0/3. Level 1: 05/15 Sorted Sequences: 4/10 mod cues. Right MCA CVA (M2 occlusion) - cryptogenic, as per workup so far - ongoing left upper and lower extremity paresis, left facial droop, dysarthria , right gaze preference - LDL 118 - HbA1c- 5.2 - ECHO (TTE) - EF 55%, mild hypokinesis of basal to mid anteroseptal ji, normal atria size, no PFO - Hypercoagulable workup so far: Cardiolipin IgG :13, Cardiolipin IgM :13, Activated Protein C Resistance: 2.6, Factor 2 Mutation : negative, Negative immunophenotypic study, no evidence of paroxysmal nocturnal hemoglobinuria, BCR/ ABL1 normal - NICKO- no evidence of interarterial shunting. No thrombus. Plan: > ASA 325mg Qday > Atorvastatin 40mg Qday > Fluoxetine 20mgQday for motor recovery > Hematology follow up (Dr. Esparza 04/17/17) > Neurology stroke clinic follow up Left sided hemiplegia Left neglect Impaired mobility and ADLs - PT/OT - on fluoxetine for motor recovery after stroke Muscle spasms Possible spasticity LLE shooting pain - baclofen 20mg TID - gabapentin 300mg qhs Cognitive impairment - [facility]SING [employer]ARE [employer]NER cognitive remediation UTI - WBC 18 on 03/28 - Afebrile, no tachycardia noted, no other signs of infection - CXR - normal - UA - many bacteria, 1+ leukocytes, nitrite neg - Started Fosfomycin at acute hospitalization - Urine cx jimenez sensitive Plan > due to male sex and straight caths required from urinary retention, will treat this as complicated UTI > ciprofloxacin 500mg BID x 7 days, to end 04/04 Urinary retention - resolved - likely related to UTI - last cath 03/27 > doxazosin 2mg PO Qday; may wean as able Hyponatremia - improving - secondary to CVA > NaCl 17meq BID > will monitor Back Pain - acute on chronic > Lidocaine patches > Naproxen Sodium Pain Management: Scheduled tylenol 1g TID. Oxycodone, robaxin, lidocaine patch , robaxin, naproxen all are prn Skin: There are no pressure sores currently. Turn patient every 2 hours while in bed and perform pressure relief in wheelchair every 20 minutes for 20 seconds. Bowel: continent of bowel, constipated, may need enema today Bladder: continent of bladder, BVIs 03/28-03/29 without concern for urinary retention Nutrition: Current diet: regular Mental Health: consult neuropsychology to provide support / counseling DVT Prophylaxis: Heparin Jomar Sargent MD Subjective Continued left leg spasms overnight - will discuss anything further we can do. Still no BM, last was 03/30. Will give prn meds and if none by this afternoon, he will likely need an enema. Pt without any other complaints this morning. Objective Vital Signs: Last Filed Vital Signs: 24 Hour Range BP: 126/82 (12/28 0450) Temp: 36.8 C (98.2 F) (04/04 450) Pulse: 122 (04/04 450) Respirations: 18 PER MINUTE (04/04 450) SpO2: 96 % (04/04 450) O2 Delivery: None (Room Air) (04/04 450) BP: (121-126)/(73-82) Temp: [36.6 C (97.9 F)-36.8 C (98.2 F)] Pulse: [63-122] Respirations: [16 PER MINUTE-18 PER MINUTE] SpO2: [96 %-98 %] O2 Delivery: None (Room Air) Vitals: 04/01/17 0450 04/02/17 0600 04/04/17449 Weight: 77 kg (169 lb 12.1 oz) 77.1 kg (169 lb 15.6 oz) 71.4 kg (157 lb 6.5 oz) Intake/Output Summary: (Last 24 hours) Intake/Output Summary (Last 24 hours) at 04/04/17 0712 Last data filed at 04/04/17 0450 Gross per 24 hour Intake 462 ml Output 2425 ml Net -1963 ml Stool Occurrence: 0 Last BM Date: 03/30/17 Lab: No results found for this visit on 03/28/17 (from the past 24 hour(s)). Physical Exam VS: BP 126/82 (BP Source: Arm, Left) | Pulse (!) 122 | Temp 36.8 C (98.2 F) | Ht 188 cm (74.02") | Wt 71.4 kg (157 lb 6.5 oz) | SpO2 96% | BMI 20.2 kg/m2 GEN: awake, alert, NAD, seen at breakfast HEAD: normocephalic, atraumatic CV: RRR, no murmur RESP: CTAB, no w/r ABD: non-distended, +BS EXT: no edema or erythema in bilateral lower limbs SKIN: no obvious rashes or lesions MSK: MAS 1 shoulder hypertonicity, MAS 2+ L HF, 1+ L KE. L hemiplegia NEURO: Mental Status: alert Orientation: fully oriented Cognition: normal processing speed for casual conversation Speech: mildly dysarthric but clear Cranial Nerves: L facial droop, L neglect improving - crossed midline with extraocular eye movement testing Motor: Right sided strength 5/5, Left sided strength 0/5 in all myotomes Clonus on left Therapy Notes & Labs Reviewed. Jomar Sargent MD * Joyce Trivedi MA - 04/03/2017 8:32 AM 3D MODELER SPEECH-LANGUAGE PATHOLOGY REHAB SPEECH DAILY NOTE SUMMARY: Patient was seen for two 30 min therapy sessions. Education with patient regarding right hemisphere dysfunction. 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 FREQUENCY TODAY: Continue plan of care. ACTIVITIES FOR THE DAY: Discussed right hemisphere dysfunction at the onset of the session, reviewed again at the end of each session. Working with patient on awareness training of impulsive responding and left neglect. Visual-Spatial: Right vs Left Hemisphere Luz: Delivery Route: Trial 1: Level 2: 0/4. Level 1:6/6. Trial 2: Level 2: 0/3. Level 1: 2/7 Sorted Sequences: 4/10 mod cues. and his two daughters were bedside at the onset of the session. Patient had received a smart watch for [employer]. Assisted patient in setting up voice activation on his cell phone and identifying capabilities of his new watch. Patient observed to be impulsive in responding and and pushing buttons. Voice activation will assist patient in being able to make calls using hands free technology, as well as setting a timer and keeping trach of the time. Speech Campaign Worker Goals Will improve attention skills necessary for safety in the home with: Minimal to Moderate assist Will improve skills necessary for KENNY's and safety in the home with: Minimal to Moderate assist Speech Short Term Goals Will demonstrate higher level reasoning skills for return home with: Progressing Will demonstrate mathematical problem solving skills for ADLs with: Progressing Will demonstrate visual scanning skills with: Progressing Will demonstrate functional reading skills for ADLs with: Progressing Will demonstrate memory for safety sequences for transfer and ADLs with: Progressing Therapist: Joyce Akins/MAE/SP Date: 03/30/2017 * Geovanny Holloway MD - 04/03/2017 7:38 AM 3D MODELER Formatting of this note may be different from the original. ATTESTATION I personally observed the resident performing the E/M, discussed case with resident, and concur with resident documentation of history, physical assessment and treatment plan unless otherwise noted. Labs and vitals reviewed and stable. Left sided pain remains a barrier in therapy. Patient describes painful spasms. Will increase baclofen and start Neurontin. Staff name: Geovanny Holloway MD Date: 04/03/2017 Physical Medicine & Rehabilitation Progress Note Today's Date: 04/03/2017 Admission Date: 03/28/2017 LOS: 6 days Principal Problem: Cerebrovascular accident (CVA) due to thrombosis of right middle cerebral artery (HCC) Active Problems: Left hemiparesis (HCC) UTI (urinary tract infection) Urinary retention Left-sided neglect Impaired mobility and ADLs Hyponatremia Assessment/Plan: Thomas Osei is a 41 y.o. male admitted to [facility] on 03/28/2017 with the following issues: stroke Rehabilitation Plan Rehabilitation: Patient will continue with comprehensive therapies including physical therapy, occupational therapy, speech & language pathology, specialized rehab nursing, neuropsychology and physiatry oversight. Goals: min-A Tentative discharge date: 04/26/17 Plan: Home with family assist and Day Program/Outpatient PT/OT DME: Shower chair, wheelchair TBD Daily Functional Update: Transfers Device Sit to Stand Transfer: Assistive Device: None (04/02/2017 8:30 AM) No Data Recorded Gait Device Assist Required Distance Gait: Assistive Device: Rail;Wheelchair Follow (03/29/2017 9:00 AM) No Data Recorded Gait Distance: 15 feet (03/29/2017 9:00 AM) Standing Balance Static Dynamic No Data Recorded No Data Recorded Toileting Assist Required Equipment Toilet Transfer Toileting Assist: Total Assist (03/29/2017 1:00 PM) No Data Recorded No Data Recorded Dressing Lower Body LE Dressing Assist: Moderate Assist (04/02/2017 10:15 AM) Cognition - 04/02 Patient consistently looked left when people entered his room. Eye contact, when clinician was on the left, inconsistent. Patient would immediately correct when cued. was bedside for education regarding Right Hemisphere Dysfunction. Discussed goals and progress in therapy. Right MCA CVA (M2 occlusion) - cryptogenic, as per workup so far - ongoing left upper and lower extremity paresis, left facial droop, dysarthria , right gaze preference - LDL 118 - HbA1c- 5.2 - ECHO (TTE) - EF 55%, mild hypokinesis of basal to mid anteroseptal ji, normal atria size, no PFO - Hypercoagulable workup so far: Cardiolipin IgG :13, Cardiolipin IgM :13, Activated Protein C Resistance: 2.6, Factor 2 Mutation : negative, Negative immunophenotypic study, no evidence of paroxysmal nocturnal hemoglobinuria, BCR/ ABL1 normal - NICKO- no evidence of interarterial shunting. No thrombus. Plan: > ASA 325mg Qday > Atorvastatin 40mg Qday > Fluoxetine 20mgQday for motor recovery > Hematology follow up (Dr. Esparza 04/17/17) > Neurology stroke clinic follow up Left sided hemiplegia Left neglect Impaired mobility and ADLs - PT/OT - on fluoxetine for motor recovery after stroke Muscle spasms Possible spasticity LLE shooting pain - baclofen 20mg TID - gabapentin 300mg qhs Cognitive impairment - [facility]SING [employer]ARE [employer]NER cognitive remediation Hiccups - improving - discharged from acute hospitalization on baclofen 20mg TID UTI - WBC 18 on 03/28 - Afebrile, no tachycardia noted, no other signs of infection - CXR - normal - UA - many bacteria, 1+ leukocytes, nitrite neg - Started Fosfomycin at acute hospitalization - Urine cx jimenez sensitive Plan > due to male sex and straight caths required from urinary retention, will treat this as complicated UTI > ciprofloxacin 500mg BID x 7 days, to end 04/04 Urinary retention - resolved - likely related to UTI - last cath 03/27 > doxazosin 2mg PO Qday -may wean as able Hyponatremia - improving - secondary to CVA > NaCl 17meq BID > will monitor Back Pain - acute on chronic > Lidocaine patches > Naproxen Sodium Pain Management: Scheduled tylenol 1g TID. Oxycodone, robaxin, lidocaine patch , robaxin, naproxen all are prn Skin: There are no pressure sores currently. Turn patient every 2 hours while in bed and perform pressure relief in wheelchair every 20 minutes for 20 seconds. Bowel: continent of bowel Bladder: continent of bladder, BVIs x3 until <125ml and ISC for >300ml Nutrition: Current diet: regular Mental Health: consult neuropsychology to provide support / counseling DVT Prophylaxis: Heparin Jomar Sargent MD Subjective No overnight events. Patient claims of having some muscle spasms in the left foot and some left shooting pain down his leg in the evening. We will increase his baclofen and start gabapentin 300 mg at night. Otherwise, the patient reports no acute complaints. Still having some constipation, will give as needed bowel meds today. Objective Vital Signs: Last Filed Vital Signs: 24 Hour Range BP: 130/82 (04/03 533) Temp: 36.3 C (97.3 F) (04/03 533) Pulse: 63 (04/03 533) Respirations: 18 PER MINUTE (04/03 533) SpO2: 98 % (04/03 533) O2 Delivery: None (Room Air) (04/03 533) BP: (118-130)/(68-82) Temp: [36.3 C (97.3 F)-36.3 C (97.4 F)] Pulse: [63-80] Respirations: [17 PER MINUTE-18 PER MINUTE] SpO2: [98 %] O2 Delivery: None (Room Air) Vitals: 03/31/17 0435 04/01/17 0450 04/02/17 0600 Weight: 72.8 kg (160 lb 7.9 oz) 77 kg (169 lb 12.1 oz) 77.1 kg (169 lb 15.6 oz) Intake/Output Summary: (Last 24 hours) Intake/Output Summary (Last 24 hours) at 04/03/17 0738 Last data filed at 04/03/17 0533 Gross per 24 hour Intake 790 ml Output 2100 ml Net -1310 ml Stool Occurrence: 0 Last BM Date: 03/30/17 Lab: Results for orders placed or performed during the hospital encounter of (from the past 24 hour(s)) CBC Collection Time: 04/02/17 7:40 AM # # Low-High White Blood Cells 10.6 4.5 - 11.0 K/UL RBC 4.84 4.4 - 5.5 M/UL Hemoglobin 15.3 13.5 - 16.5 GM/DL Hematocrit 44.3 40 - 50 % MCV 91.5 80 - 100 FL MCH 31.6 26 - 34 PG MCHC 34.6 32.0 - 36.0 G/DL RDW 12.7 11 - 15 % Platelet Count 291 150 - 400 K/UL MPV 7.6 7 - 11 FL BASIC METABOLIC PANEL Collection Time: 04/02/17 7:40 AM # # Low-High Sodium 136 (L) 137 - 147 MMOL/L Potassium 4.1 3.5 - 5.1 MMOL/L Chloride 103 98 - 110 MMOL/L CO2 23 21 - 30 MMOL/L Anion Gap 10 3 - 12 Glucose 150 (H) 70 - 100 MG/DL Blood Urea Nitrogen 22 7 - 25 MG/DL Creatinine 0.80 0.4 - 1.24 MG/DL Calcium 9.3 8.5 - 10.6 MG/DL eGFR Non >60 >60 mL/min eGFR >60 >60 mL/min Physical Exam VS: BP 130/82 (BP Source: Arm, Right) | Pulse 63 | Temp 36.3 C (97.3 F) | Ht 188 cm (74.02") | Wt 77.1 kg (169 lb 15.6 oz) | SpO2 98% | BMI 21.81 kg/m2 GEN: awake, alert, NAD HEAD: normocephalic, atraumatic CV: RRR, no murmur RESP: CTAB, no w/r ABD: non-distended, +BS EXT: no edema or erythema in bilateral lower limbs SKIN: no obvious rashes or lesions MSK: MAS 1 shoulder hypertonicity, MAS 2+ L HF, 1+ L KE. L hemiplegia NEURO: Mental Status: alert Orientation: fully oriented Cognition: normal processing speed for casual conversation Speech: mildly dysarthric but clear Cranial Nerves: L facial droop, L neglect improving - crossed midline with extraocular eye movement testing Motor: Right sided strength 5/5, Left sided strength 0/5 in all myotomes Clonus on left Therapy Notes & Labs Reviewed. Jomar Sargent MD * Joyce Trivedi MA - 04/02/2017 9:05 AM 3D MODEL[employer] SPEECH-LANGUAGE PATHOLOGY REHAB SPEECH DAILY NOTE SUMMARY: Patient was seen for two 30 min therapy sessions. Patient discussed in team conference. 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 FREQUENCY TODAY: Pt seen for 2, 30 minute sessions. ACTIVITIES FOR THE DAY: Patient consistently looked left when people entered his room. Eye contact, when clinician was on the left, inconsistent. Patient would immediately correct when cued. was bedside for education regarding Right Hemisphere Dysfunction. Discussed goals and progress in therapy. Visual-Spatial: Visual Scanning: Test - 1 target: 100% accy. 2 targets: 92% accy. Symbol Matching: CT Luz: Level 1: 92% accy mod cues. Level 1: Trial 2: 100% accy no cues. Counting Currency: Level 4: 50% accy mod to max cues. Avg. Response Time: 97.4 sec. Patient highly distractible. Patient with poor insight/awareness, stated he has always had problems with attention. Provided support and education regarding cognitive impairment associated with right hemisphere stroke. Speech Campaign Worker Goals Will improve attention skills necessary for safety in the home with: Minimal to Moderate assist Will improve skills necessary for KENNY's and safety in the home with: Minimal to Moderate assist Speech Short Term Goals Will demonstrate higher level reasoning skills for return home with: Progressing Will demonstrate mathematical problem solving skills for ADLs with: Progressing Will demonstrate visual scanning skills with: Progressing Will demonstrate functional reading skills for ADLs with: Progressing Will demonstrate memory for safety sequences for transfer and ADLs with: Progressing Therapist: Joyce Akins/MAE/SP Date: 03/30/2017 * Jomar Sargent MD - 04/02/2017 8:22 AM 3D MODELER Formatting of this note may be different from the original. Physical Medicine & Rehabilitation Progress Note Today's Date: 04/02/2017 Admission Date: 03/28/2017 LOS: 5 days Principal Problem: Cerebrovascular accident (CVA) due to thrombosis of right middle cerebral artery (HCC) Active Problems: Left hemiparesis (HCC) UTI (urinary tract infection) Urinary retention Left-sided neglect Impaired mobility and ADLs Hyponatremia Assessment/Plan: Thomas Osei is a 41 y.o. male admitted to [facility] on 03/28/2017 with the following issues: stroke Rehabilitation Plan Rehabilitation: Patient will continue with comprehensive therapies including physical therapy, occupational therapy, speech & language pathology, specialized rehab nursing, neuropsychology and physiatry oversight. Goals: TBD Tentative discharge date: 04/26/17 Recommended therapy and equipment: TBD Daily Functional Update: Transfers Device Sit to Stand Transfer: Assistive Device: None (03/31/2017 2:00 PM) No Data Recorded Gait Device Assist Required Distance Gait: Assistive Device: Rail;Wheelchair Follow (03/29/2017 9:00 AM) No Data Recorded Gait Distance: 15 feet (03/29/2017 9:00 AM) Standing Balance Static Dynamic No Data Recorded No Data Recorded Toileting Assist Required Equipment Toilet Transfer Toileting Assist: Total Assist (03/29/2017 1:00 PM) No Data Recorded No Data Recorded Dressing Lower Body LE Dressing Assist: Total Assist (03/31/2017 2:00 PM) Right MCA CVA (M2 occlusion) - cryptogenic, as per workup so far - ongoing left upper and lower extremity paresis, left facial droop, dysarthria , right gaze preference - LDL 118 - HbA1c- 5.2 - ECHO (TTE) - EF 55%, mild hypokinesis of basal to mid anteroseptal ji, normal atria size, no PFO - Hypercoagulable workup so far: Cardiolipin IgG :13, Cardiolipin IgM :13, Activated Protein C Resistance: 2.6, Factor 2 Mutation : negative, Negative immunophenotypic study, no evidence of paroxysmal nocturnal hemoglobinuria, BCR/ ABL1 normal - NICKO- no evidence of interarterial shunting. No thrombus. Plan: > ASA 325mg Qday > Atorvastatin 40mg Qday > Fluoxetine 20mgQday for motor recovery > Hematology follow up (Dr. 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 Hiccups - improving - discharged from acute hospitalization on baclofen 20mg TID UTI - WBC 18 on 03/28 - Afebrile, no tachycardia noted, no other signs of infection - CXR - normal - UA - many bacteria, 1+ leukocytes, nitrite neg - Started Fosfomycin at acute hospitalization - Urine cx jimenez sensitive Plan > due to male sex and straight caths required from urinary retention, will treat this as complicated UTI > ciprofloxacin 500mg BID x 7 days, to end 04/04 Urinary retention - resolved - likely related to UTI - last cath 03/27 > doxazosin 2mg PO Qday Hyponatremia - improving - secondary to CVA > NaCl 17meq BID > will monitor Back Pain - acute on chronic > Lidocaine patches > Naproxen Sodium Pain Management: Scheduled tylenol 1g TID. Oxycodone, robaxin, lidocaine patch , robaxin, naproxen all are prn Skin: There are no pressure sores currently. Turn patient every 2 hours while in bed and perform pressure relief in wheelchair every 20 minutes for 20 seconds. Bowel: continent of bowel Bladder: continent of bladder, BVIs x3 until <125ml and ISC for >300ml Nutrition: Current diet: regular Mental Health: consult neuropsychology to provide support / counseling DVT Prophylaxis: Heparin Jomar Sargent MD Subjective No events overnight. Patient having some muscle spasms - increased baclofen to 15mg TID. No other acute complaints this morning. Objective Vital Signs: Last Filed Vital Signs: 24 Hour Range BP: 126/78 (04/02 546) Temp: 36.6 C (97.8 F) (04/02 546) Pulse: 55 (04/02 546) Respirations: 17 PER MINUTE (04/02 546) SpO2: 98 % (04/02 546) O2 Delivery: None (Room Air) (04/02 546) BP: (126-139)/(74-78) Temp: [36.6 C (97.8 F)-36.9 C (98.4 F)] Pulse: [55-73] Respirations: [17 PER MINUTE-18 PER MINUTE] SpO2: [95 %-98 %] O2 Delivery: None (Room Air) Vitals: 03/31/17 0435 04/01/17 0450 04/02/17 0600 Weight: 72.8 kg (160 lb 7.9 oz) 77 kg (169 lb 12.1 oz) 77.1 kg (169 lb 15.6 oz) Intake/Output Summary: (Last 24 hours) Intake/Output Summary (Last 24 hours) at 04/02/17 0822 Last data filed at 04/02/17 0546 Gross per 24 hour Intake 1440 ml Output 2180 ml Net -740 ml Stool Occurrence: 0 Last BM Date: 03/30/17 Lab: Results for orders placed or performed during the hospital encounter of (from the past 24 hour(s)) CBC Collection Time: 04/01/17 9:05 AM # # Low-High White Blood Cells 7.6 4.5 - 11.0 K/UL RBC 4.65 4.4 - 5.5 M/UL Hemoglobin 14.6 13.5 - 16.5 GM/DL Hematocrit 42.4 40 - 50 % MCV 91.3 80 - 100 FL MCH 31.5 26 - 34 PG MCHC 34.5 32.0 - 36.0 G/DL RDW 12.8 11 - 15 % Platelet Count 231 150 - 400 K/UL MPV 7.9 7 - 11 FL BASIC METABOLIC PANEL Collection Time: 04/01/17 9:05 AM # # Low-High Sodium 135 (L) 137 - 147 MMOL/L Potassium 3.8 3.5 - 5.1 MMOL/L Chloride 103 98 - 110 MMOL/L CO2 25 21 - 30 MMOL/L Anion Gap 7 3 - 12 Glucose 139 (H) 70 - 100 MG/DL Blood Urea Nitrogen 20 7 - 25 MG/DL Creatinine 0.96 0.4 - 1.24 MG/DL Calcium 8.9 8.5 - 10.6 MG/DL eGFR Non >60 >60 mL/min eGFR >60 >60 mL/min Physical Exam VS: BP 126/78 (BP Source: Arm, Right) | Pulse 55 | Temp 36.6 C (97.8 F) | Ht 188 cm (74.02") | Wt 77.1 kg (169 lb 15.6 oz) | SpO2 98% | BMI 21.81 kg/m2 GEN: awake, alert, NAD HEAD: normocephalic, atraumatic CV: RRR, no murmur RESP: CTAB, no w/r ABD: non-distended, +BS EXT: no edema or erythema in bilateral lower limbs SKIN: no obvious rashes or lesions MSK: mild shoulder hypertonicity, L hemiplegia NEURO: Mental Status: alert Orientation: fully oriented Cognition: normal processing speed for casual conversation Speech: mildly dysarthric but clear Cranial Nerves: L facial droop, L neglect improving - crossed midline with extraocular eye movement testing Motor: Right sided strength 5/5, Left sided strength 0/5 in all myotomes Therapy Notes & Labs Reviewed. Jomar Sargent MD Associated attestation - Maximo Sheriff MD - 04/02/2017 12:11 PM 3D MODELER Rehabilitation Medicine Attending Physician Attestation: I personally performed lima portions of the history and exam. I discussed the case with the resident and agree with the resident's documentation of history, physical assessment and treatment plan unless otherwise noted. Thank you for allowing us to participate in the care of this patient. Maximo Sheriff MD 04/02/2017 12:11 PM Attending physician * Catalina Menchaca - 04/01/2017 5:47 PM 3D MODELER Structural Designer me twiht patient and his family this evening. Structural Designer provided a blessing candle and discussion on the holiday evening. Structural Designer met children and and offered encouragement and blessing. * Kyler Zamarripa, CHARLIE - 04/01/2017 4:53 PM 3D MODELER Pt eating , drinking better, Improved mood noted. He has been using his phone to communicate with family and friends a lot today. Family in room at this time. extremely supportive. He was able to feed self today, with set up assist, some supervision. Pt states that the heat pad on left upper leg, knee area has helped with his spasms. He did take his lidoderm patch on lower back today, states some relief. He has required encouragement to take the Heparin injection , this afternoon, he declined his Heparin shot.He has a dressing on the right side of neck from old PICC, continues in place., guaze and tegaderm * Luigi Galicia DO - 04/01/2017 8:33 AM 3D MODELER Formatting of this note may be different from the original. Physical Medicine & Rehabilitation Progress Note Today's Date: 04/01/2017 Admission Date: 03/28/2017 LOS: 4 days Principal Problem: Cerebrovascular accident (CVA) due to thrombosis of right middle cerebral artery (HCC) Active Problems: Left hemiparesis (HCC) UTI (urinary tract infection) Urinary retention Left-sided neglect Impaired mobility and ADLs Hyponatremia 03/30 - Had multiple large BM's (first since 03/24). Urine Cx jimenez sensitive. 03/31 - increased QHS baclofen to 15mg 04/01 - no changes Assessment/Plan: Thomas Osei is a 41 y.o. male admitted to [facility] on 03/28/2017 with the following issues: stroke Rehabilitation Plan Rehabilitation: Patient will continue with comprehensive therapies including physical therapy, occupational therapy, speech & language pathology, specialized rehab nursing, neuropsychology and physiatry oversight. Goals: TBD Tentative discharge date: TBD Recommended therapy and equipment: TBD Daily Functional Update: Transfers Device Sit to Stand Transfer: Assistive Device: None (03/31/2017 2:00 PM) No Data Recorded Gait Device Assist Required Distance Gait: Assistive Device: Rail;Wheelchair Follow (03/29/2017 9:00 AM) No Data Recorded Gait Distance: 15 feet (03/29/2017 9:00 AM) Standing Balance Static Dynamic No Data Recorded No Data Recorded Toileting Assist Required Equipment Toilet Transfer Toileting Assist: Total Assist (03/29/2017 1:00 PM) No Data Recorded No Data Recorded Dressing Lower Body LE Dressing Assist: Total Assist (03/31/2017 2:00 PM) Right MCA CVA (M2 occlusion) - cryptogenic, as per workup so far - ongoing left upper and lower extremity paresis, left facial droop, dysarthria , right gaze preference - LDL 118 - HbA1c- 5.2 - ECHO (TTE) - EF 55%, mild hypokinesis of basal to mid anteroseptal ji, normal atria size, no PFO - Hypercoagulable workup so far: Cardiolipin IgG :13, Cardiolipin IgM :13, Activated Protein C Resistance: 2.6, Factor 2 Mutation : negative, Negative immunophenotypic study, no evidence of paroxysmal nocturnal hemoglobinuria, BCR/ ABL1 normal - NICKO- no evidence of interarterial shunting. No thrombus. Plan: > ASA 325mg Qday > Atorvastatin 40mg Qday > Fluoxetine 20mgQday for motor recovery > Hematology follow up (Dr. Esparza 04/17/17) > Neurology stroke clinic follow up Left sided hemiplegia Left neglect Impaired mobility and ADLs - PT/OT - on fluoxetine for motor recovery after stroke Cognitive impairment - NURSING [facility]ARE [employer]NER cog eval and remediation Hiccups - discharged from acute hospitalization on baclofen 20mg TID > decreased to 10mg TID 03/29 UTI - WBC 18 on 03/28 - Afebrile, no tachycardia noted, no other signs of infection - CXR - normal - UA - many bacteria, 1+ leukocytes, nitrite neg - Started Fosfomycin at acute hospitalization - Urine cx jimenez sensitive Plan > due to male sex and straight caths required from urinary retention, will treat this as complicated UTI > ciprofloxacin 500mg BID x 7 days Urinary retention - likely related to UTI - requiring multiple straight catheterizations > doxazosin 2mg PO Qday Hyponatremia - secondary to CVA > NaCl 17meq BID > will monitor. May consider fluid restriction if worsens Back Pain - acute on chronic > Lidocaine patches > Naproxen Sodium Pain Management: Scheduled tylenol 1g TID. Oxycodone, robaxin, lidocaine patch , robaxin, naproxen all are prn Skin: There are no pressure sores currently. Turn patient every 2 hours while in bed and perform pressure relief in wheelchair every 20 minutes for 20 seconds. Bowel: continent of bowel Bladder: continent of bladder, BVIs x3 until <125ml and ISC for >300ml Nutrition: Current diet: regular Mental Health: consult neuropsychology to provide support / counseling DVT Prophylaxis: Heparin Luigi Galicia, DO Subjective No events overnight. Pt stated he couldn't tell a difference with increased dose of baclofen last night. Stated however his spasms/pain improved with heating pad. No other complaints when seen. Objective Vital Signs: Last Filed Vital Signs: 24 Hour Range BP: 125/75 (04/01 450) Temp: 36.8 C (98.2 F) (04/01 450) Pulse: 55 (04/01 450) Respirations: 18 PER MINUTE (04/01 450) SpO2: 96 % (04/01 450) O2 Delivery: None (Room Air) (04/01 450) BP: (106-125)/(57-75) Temp: [36.5 C (97.7 F)-36.8 C (98.2 F)] Pulse: [55-62] Respirations: [18 PER MINUTE] SpO2: [96 %-98 %] O2 Delivery: None (Room Air) Vitals: 03/30/17 0700 03/31/17 0435 04/01/17 0450 Weight: 80 kg (176 lb 5.9 oz) 72.8 kg (160 lb 7.9 oz) 77 kg (169 lb 12.1 oz) Intake/Output Summary: (Last 24 hours) Intake/Output Summary (Last 24 hours) at 04/01/17 0833 Last data filed at 04/01/17 0500 Gross per 24 hour Intake 662 ml Output 2430 ml Net -1768 ml Stool Occurrence: 0 Last BM Date: 03/30/17 Lab: No results found for this visit on 03/28/17 (from the past 24 hour(s)). Physical Exam VS: BP 125/75 (BP Source: Arm, Right) | Pulse 55 | Temp 36.8 C (98.2 F) | Ht 188 cm (74.02") | Wt 77 kg (169 lb 12.1 oz) | SpO2 96% | BMI 21.79 kg/m2 GEN: awake, alert, NAD HEAD: normocephalic, atraumatic CV: RRR, no murmur RESP: CTAB, no w/r ABD: non-distended, +BS EXT: no edema or erythema in bilateral lower limbs SKIN: no obvious rashes or lesions MSK: no hypo/hypertonicity noted, L hemiplegia, pain L shoulder with PROM NEURO: Mental Status: alert Orientation: fully oriented Cognition: normal processing speed for casual conversation Speech: mildly dysarthric but clear Cranial Nerves: L facial droop, L neglect improving Motor: Right sided strength 5/5, Left sided strength 0/5 in all myotomes Therapy Notes & Labs Reviewed. Luigi Galicia DO Associated attestation - Carlos Boothe MD - 04/02/2017 11:40 AM 3D MODELER Formatting of this note may be different from the original. ATTESTATION I personally observed the resident performing the E/M, discussed case with resident, and concur with resident documentation of history, physical assessment and treatment plan unless otherwise noted. Leg spasms were not helped by medication, but were helped by heating pad. He reports feeling better. Staff name: Carlos Boothe MD Date: 04/01/2017 * Tiarra Jose - 03/31/2017 9:29 AM 3D MODELER SPEECH-LANGUAGE PATHOLOGY REHAB SPEECH DAILY NOTE SUMMARY: Cognitive tx completed this date to address RHD. Moderate latency in response time with flat affected noted. Continued left neglect. 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 FREQUENCY TODAY: Pt seen for one 60-minute sessions. ACTIVITIES FOR THE DAY: Math/Time Concepts: 2/2 Latent responses Visual-Spatial: Visual scanning tasks, pt requiring moderate-maximal cueing to "go to left". Max cues to look at the daily schedule in his room. Pt also demo' ed difficulty with read paragraph level tasks. He required moderate cues to look left and achieved 6/8 accy. Drawing line to left or placing object to left , reading items aloud, and using paper to block other lines were successful in increasing accuracy. Speech Campaign Worker Goals Will improve attention skills necessary for safety in the home with: Minimal to Moderate assist Will improve skills necessary for KENNY's and safety in the home with: Minimal to Moderate assist Speech Short Term Goals Will demonstrate higher level reasoning skills for return home with: 80% accuracy, Minimal to Moderate cues Will demonstrate mathematical problem solving skills for ADLs with: 80% accuracy , Minimal to Moderate cues Will demonstrate visual scanning skills with: 80% accuracy, Minimal to Moderate cues Will demonstrate functional reading skills for ADLs with: 80% accuracy, Minimal to Moderate cues Will demonstrate memory for safety sequences for transfer and ADLs with: 80% accuracy, Minimal to Moderate cues Therapist: Tiarra Jose MS, L/CCC-NURSING CARE [facility]NER, [id number] Date: 03/30/2017 * Luigi Galicia, - 03/31/2017 8:44 AM 3D MODELER Formatting of this note may be different from the original. Physical Medicine & Rehabilitation Progress Note Today's Date: 03/31/2017 Admission Date: 03/28/2017 LOS: 3 days Principal Problem: Cerebrovascular accident (CVA) due to thrombosis of right middle cerebral artery (HCC) Active Problems: Left hemiparesis (HCC) UTI (urinary tract infection) Urinary retention Left-sided neglect Impaired mobility and ADLs Hyponatremia 03/30 - Had multiple large BM's (first since 03/24). Urine Cx jimenez sensitive. 03/31 - increased QHS baclofen to 15mg Assessment/Plan: Thomas Osei is a 41 y.o. male admitted to [facility] on 03/28/2017 with the following issues: stroke Rehabilitation Plan Rehabilitation: Patient will continue with comprehensive therapies including physical therapy, occupational therapy, speech & language pathology, specialized rehab nursing, neuropsychology and physiatry oversight. Goals: TBD Tentative discharge date: TBD Recommended therapy and equipment: TBD Daily Functional Update: Transfers Device Sit to Stand Transfer: Assistive Device: None (03/30/2017 11:00 AM) No Data Recorded Gait Device Assist Required Distance Gait: Assistive Device: Rail;Wheelchair Follow (03/29/2017 9:00 AM) No Data Recorded Gait Distance: 15 feet (03/29/2017 9:00 AM) Standing Balance Static Dynamic No Data Recorded No Data Recorded Toileting Assist Required Equipment Toilet Transfer Toileting Assist: Total Assist (03/29/2017 1:00 PM) No Data Recorded No Data Recorded Dressing Lower Body LE Dressing Assist: Total Assist (03/30/2017 10:00 AM) Right MCA CVA (M2 occlusion) - cryptogenic, as per workup so far - ongoing left upper and lower extremity paresis, left facial droop, dysarthria , right gaze preference - LDL 118 - HbA1c- 5.2 - ECHO (TTE) - EF 55%, mild hypokinesis of basal to mid anteroseptal ji, normal atria size, no PFO - Hypercoagulable workup so far: Cardiolipin IgG :13, Cardiolipin IgM :13, Activated Protein C Resistance: 2.6, Factor 2 Mutation : negative, Negative immunophenotypic study, no evidence of paroxysmal nocturnal hemoglobinuria, BCR/ ABL1 normal - NICKO- no evidence of interarterial shunting. No thrombus. Plan: > ASA 325mg Qday > Atorvastatin 40mg Qday > Fluoxetine 20mgQday for motor recovery > Hematology follow up (Dr. Esparza 04/17/17) > Neurology stroke clinic follow up Left sided hemiplegia Left neglect Impaired mobility and ADLs - PT/OT - on fluoxetine for motor recovery after stroke Cognitive impairment - [facility] [employer]ARE [employer]NER cog eval and remediation Hiccups - discharged from acute hospitalization on baclofen 20mg TID > decreased to 10mg TID 03/29 UTI - WBC 18 on 03/28 - Afebrile, no tachycardia noted, no other signs of infection - CXR - normal - UA - many bacteria, 1+ leukocytes, nitrite neg - Started Fosfomycin at acute hospitalization - Urine cx jimenez sensitive Plan > due to male sex and straight caths required from urinary retention, will treat this as complicated UTI > ciprofloxacin 500mg BID x 7 days Urinary retention - likely related to UTI - requiring multiple straight catheterizations > doxazosin 2mg PO Qday Hyponatremia - secondary to CVA > NaCl 17meq BID > will monitor. May consider fluid restriction if worsens Back Pain - acute on chronic > Lidocaine patches > Naproxen Sodium Pain Management: Scheduled tylenol 1g TID. Oxycodone, robaxin, lidocaine patch , robaxin, naproxen all are prn Skin: There are no pressure sores currently. Turn patient every 2 hours while in bed and perform pressure relief in wheelchair every 20 minutes for 20 seconds. Bowel: continent of bowel Bladder: continent of bladder, BVIs x3 until <125ml and ISC for >300ml Nutrition: Current diet: regular Mental Health: consult neuropsychology to provide support / counseling DVT Prophylaxis: Heparin Luigi Grayson, DO Subjective No events overnight. Pt resting comfortably in chair when seen this am. Pt stated that he much more comfortably after having multiple BM's yesterday. No other concerns when seen. Objective Vital Signs: Last Filed Vital Signs: 24 Hour Range BP: 122/72 (03/31 435) Temp: 36.7 C (98 F) (03/31 435) Pulse: 60 (03/31 435) Respirations: 18 PER MINUTE (03/31 435) SpO2: 95 % (03/31 435) O2 Delivery: None (Room Air) (03/31 435) BP: (122-124)/(66-72) Temp: [36.3 C (97.3 F)-36.7 C (98 F)] Pulse: [60-73] Respirations: [18 PER MINUTE] SpO2: [95 %-97 %] O2 Delivery: None (Room Air) Vitals: 03/28/17 1528 03/30/17 0700 03/31/17 0435 Weight: 78 kg (172 lb) 80 kg (176 lb 5.9 oz) 72.8 kg (160 lb 7.9 oz) Intake/Output Summary: (Last 24 hours) Intake/Output Summary (Last 24 hours) at 03/31/17 0845 Last data filed at 03/31/17 0652 Gross per 24 hour Intake 1360 ml Output 1640 ml Net -280 ml Stool Occurrence: 0 Last BM Date: 03/30/17 Lab: Results for orders placed or performed during the hospital encounter of (from the past 24 hour(s)) CBC Collection Time: 03/31/17 7:15 AM # # Low-High White Blood Cells 6.0 4.5 - 11.0 K/UL RBC 4.70 4.4 - 5.5 M/UL Hemoglobin 14.8 13.5 - 16.5 GM/DL Hematocrit 42.7 40 - 50 % MCV 90.8 80 - 100 FL MCH 31.4 26 - 34 PG MCHC 34.5 32.0 - 36.0 G/DL RDW 12.7 11 - 15 % Platelet Count 233 150 - 400 K/UL MPV 7.8 7 - 11 FL BASIC METABOLIC PANEL Collection Time: 03/31/17 7:15 AM # # Low-High Sodium 133 (L) 137 - 147 MMOL/L Potassium 4.0 3.5 - 5.1 MMOL/L Chloride 101 98 - 110 MMOL/L CO2 25 21 - 30 MMOL/L Anion Gap 7 3 - 12 Glucose 112 (H) 70 - 100 MG/DL Blood Urea Nitrogen 20 7 - 25 MG/DL Creatinine 0.83 0.4 - 1.24 MG/DL Calcium 9.1 8.5 - 10.6 MG/DL eGFR Non >60 >60 mL/min eGFR >60 >60 mL/min Physical Exam VS: BP 122/72 (BP Source: Arm, Right) | Pulse 60 | Temp 36.7 C (98 F) | Ht 188 cm (74.02") | Wt 72.8 kg (160 lb 7.9 oz) | SpO2 95% | BMI 20.6 kg/m2 GEN: awake, alert, NAD HEAD: normocephalic, atraumatic CV: RRR, no murmur RESP: CTAB, no w/r ABD: non-distended, +BS EXT: no edema or erythema in bilateral lower limbs SKIN: no obvious rashes or lesions MSK: no hypo/hypertonicity noted, L hemiplegia, pain L shoulder with PROM NEURO: Mental Status: alert Orientation: fully oriented Cognition: normal processing speed for casual conversation Speech: mildly dysarthric but clear Cranial Nerves: L facial droop, L neglect improving Motor: Right sided strength 5/5, Left sided strength 0/5 in all myotomes Therapy Notes & Labs Reviewed. Luigi Galicia DO Associated attestation - Carlos Boothe MD - 04/01/2017 1:15 PM 3D MODELER Formatting of this note may be different from the original. ATTESTATION I personally observed the resident performing the E/M, discussed case with resident, and concur with resident documentation of history, physical assessment and treatment plan unless otherwise noted. Leg spasms worse at night. Will increase medication offered as well as heating pat. Staff name: Carlos Boothe MD Date: 03/31/2017 * Kyler Zamarripa RN - 03/30/2017 6:53 PM 3D MODELER Pt had several large bowel movements today, states he feels a lot better. Continues with sad affect, but has smiled some today. supportive, pt had dark urine and poor appetite this am, but has eaten 100 % supper and taken a lot more fluids this afternoon. * Celina Jade - 03/30/2017 8:30 AM 3D MODELER SPEECH-LANGUAGE PATHOLOGY REHAB SPEECH DAILY NOTE SUMMARY: Patient and spouse reporting abdominal discomfort but patient participating in treatment session. Moderate latency in response time with flat affected noted. Continued left neglect. 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 FREQUENCY TODAY: Pt seen for 2, 30 minute sessions. ACTIVITIES FOR THE DAY: Sequencing/Organization: Attempted to organize detailed steps to "putting gas in car." Pt able to list 8 appropriate details, however, poor topic maintenance 2/2 limited attention at end of session as pt stated "transverse approach". When questioned, pt unsure of statement. Problem Solving: (Divergent): Latency in response time. 3/3 accuracy for abstract task. Pt demonstrating some perseveration as continued to offer choices despite completing at 3. (Convergent): 1/2 (Safety): 9/10 accuracy for safety problem solving questions. Latency in response time. No eye contact. Reasoning: (General): 5/5 (Inductive): 3/3 Latent responses (Abstract Analogies): 1/2 (Inferences): 1/3 Math/Time Concepts: 2/6 Latent responses Reading Comprehension: Pt able to read 5 words aloud without difficulty. Pt read 3 paragraphs of information, only 4/10 accuracy in responses Visual-Spatial: Visual scanning tasks, pt requiring moderate-maximal cueing to "go to left". 16 errors on first puzzle. 3 errors on matching letters and 3 for matching words when blow supports were added. Pt demonstrating errors on missing parts of sentence 20% of time, stating, my eyes are darting around. Drawing line to left or placing object to left, reading items aloud, and using paper to block other lines were successful in increasing accuracy. Speech Campaign Worker Goals Will improve attention skills necessary for safety in the home with: Minimal to Moderate assist Will improve skills necessary for KENNY's and safety in the home with: Minimal to Moderate assist Speech Short Term Goals Will demonstrate higher level reasoning skills for return home with: 80% accuracy, Minimal to Moderate cues Will demonstrate mathematical problem solving skills for ADLs with: 80% accuracy , Minimal to Moderate cues Will demonstrate visual scanning skills with: 80% accuracy, Minimal to Moderate cues Will demonstrate functional reading skills for ADLs with: 80% accuracy, Minimal to Moderate cues Will demonstrate memory for safety sequences for transfer and ADLs with: 80% accuracy, Minimal to Moderate cues Therapist: Celina Jade MA, L/CCC-NURSING CARE PARTNER [phone] Date: 03/30/2017 * Luigi Galicia DO - 03/30/2017 8:27 AM 3D MODELER Formatting of this note may be different from the original. Physical Medicine & Rehabilitation Progress Note Today's Date: 03/30/2017 Admission Date: 03/28/2017 LOS: 2 days Principal Problem: Cerebrovascular accident (CVA) due to thrombosis of right middle cerebral artery (HCC) Active Problems: Left hemiparesis (HCC) UTI (urinary tract infection) Urinary retention Left-sided neglect Impaired mobility and ADLs Hyponatremia 03/30 - Had multiple large BM's (first since 03/24). Urine Cx jimenez sensitive. Assessment/Plan: Thomas Osei is a 41 y.o. male admitted to [facility] on 03/28/2017 with the following issues: stroke Rehabilitation Plan Rehabilitation: Patient will continue with comprehensive therapies including physical therapy, occupational therapy, speech & language pathology, specialized rehab nursing, neuropsychology and physiatry oversight. Goals: TBD Tentative discharge date: TBD Recommended therapy and equipment: TBD Daily Functional Update: Transfers Device Sit to Stand Transfer: Assistive Device: None (03/29/2017 9:00 AM) No Data Recorded Gait Device Assist Required Distance Gait: Assistive Device: Rail;Wheelchair Follow (03/29/2017 9:00 AM) No Data Recorded Gait Distance: 15 feet (03/29/2017 9:00 AM) Standing Balance Static Dynamic No Data Recorded No Data Recorded Toileting Assist Required Equipment Toilet Transfer Toileting Assist: Total Assist (03/29/2017 1:00 PM) No Data Recorded No Data Recorded Dressing Lower Body LE Dressing Assist: Total Assist (03/29/2017 1:00 PM) Right MCA CVA (M2 occlusion) - cryptogenic, as per workup so far - ongoing left upper and lower extremity paresis, left facial droop, dysarthria , right gaze preference - LDL 118 - HbA1c- 5.2 - ECHO (TTE) - EF 55%, mild hypokinesis of basal to mid anteroseptal ji, normal atria size, no PFO - Hypercoagulable workup so far: Cardiolipin IgG :13, Cardiolipin IgM :13, Activated Protein C Resistance: 2.6, Factor 2 Mutation : negative, Negative immunophenotypic study, no evidence of paroxysmal nocturnal hemoglobinuria, BCR/ ABL1 normal - NICKO- no evidence of interarterial shunting. No thrombus. Plan: > ASA 325mg Qday > Atorvastatin 40mg Qday > Fluoxetine 20mgQday for motor recovery > Hematology follow up (Dr. Esparza 04/17/17) > Neurology stroke clinic follow up Left sided hemiplegia Left neglect Impaired mobility and ADLs - PT/OT - on fluoxetine for motor recovery after stroke Cognitive impairment - NURSING CARE PARTNER cog eval and remediation Hiccups - discharged from acute hospitalization on baclofen 20mg TID > decreased to 10mg TID 03/29 UTI - WBC 18 on 03/28 - Afebrile, no tachycardia noted, no other signs of infection - CXR - normal - UA - many bacteria, 1+ leukocytes, nitrite neg - Started Fosfomycin at acute hospitalization - Urine cx jimenez sensitive Plan > due to male sex and straight caths required from urinary retention, will treat this as complicated UTI > ciprofloxacin 500mg BID x 7 days Urinary retention - likely related to UTI - requiring multiple straight catheterizations > doxazosin 2mg PO Qday Hyponatremia - secondary to CVA > NaCl 17meq BID > will monitor. May consider fluid restriction if worsens Back Pain - acute on chronic > Lidocaine patches > Naproxen Sodium Pain Management: Scheduled tylenol 1g TID. Oxycodone, robaxin, lidocaine patch , robaxin, naproxen all are prn Skin: There are no pressure sores currently. Turn patient every 2 hours while in bed and perform pressure relief in wheelchair every 20 minutes for 20 seconds. Bowel: continent of bowel Bladder: continent of bladder, BVIs x3 until <125ml and ISC for >300ml Nutrition: Current diet: regular Mental Health: consult neuropsychology to provide support / counseling DVT Prophylaxis: Heparin Luigi Grayson, DO Subjective No events overnight. Pt seen working with therapies in gym this am. Pt concerned about not having BM since 03/24. Pt eventually had BM later in the morning. Objective Vital Signs: Last Filed Vital Signs: 24 Hour Range BP: 130/70 (03/30 810) Temp: 36.8 C (98.3 F) (03/30 810) Pulse: 63 (03/30 0810) Respirations: 18 PER MINUTE (03/30 810) SpO2: 95 % (03/30 810) O2 Delivery: None (Room Air) (03/30 810) BP: (125-149)/(70-85) Temp: [36.3 C (97.3 F)-37.4 C (99.3 F)] Pulse: [63-94] Respirations: [16 PER MINUTE-18 PER MINUTE] SpO2: [93 %-98 %] O2 Delivery: None (Room Air) Intensity Pain Scale 0-10 (Pain 1): 6 (03/30/17 0500) Vitals: 03/28/17 1528 03/30/17 0700 Weight: 78 kg (172 lb) 80 kg (176 lb 5.9 oz) Intake/Output Summary: (Last 24 hours) Intake/Output Summary (Last 24 hours) at 03/30/17 0827 Last data filed at 03/29/17 2000 Gross per 24 hour Intake 350 ml Output 925 ml Net -575 ml Stool Occurrence: 0 BVI (Bladder Scan)(mL): 43 milliliters (PV) (03/29/17 1110) Last BM Date: 03/24/17 Lab: No results found for this visit on 03/28/17 (from the past 24 hour(s)). Physical Exam VS: BP 130/70 (BP Source: Arm, Right) | Pulse 63 | Temp 36.8 C (98.3 F) | Ht 188 cm (74.02") | Wt 80 kg (176 lb 5.9 oz) | SpO2 95% | BMI 22.63 kg/m2 GEN: awake, alert, NAD HEAD: normocephalic, atraumatic CV: RRR, no murmur RESP: CTAB, no w/r ABD: non-distended, +BS EXT: no edema or erythema in bilateral lower limbs SKIN: no obvious rashes or lesions MSK: no hypo/hypertonicity noted, L hemiplegia, pain L shoulder with PROM NEURO: Mental Status: alert Orientation: fully oriented Cognition: normal processing speed for casual conversation Speech: mildly dysarthric but clear Cranial Nerves: L facial droop, L neglect improving Motor: Right sided strength 5/5, Left sided strength 0/5 in all myotomes Therapy Notes & Labs Reviewed. Luigi Galicia DO Associated attestation - Carlos Boothe MD - 03/31/2017 11:36 AM 3D MODELER Formatting of this note may be different from the original. ATTESTATION I personally observed the resident performing the E/M, discussed case with resident, and concur with resident documentation of history, physical assessment and treatment plan unless otherwise noted. No BM since 03/24/17 and feeling sick. Tried commode just after rounding and productive, so no need for changes in bowel regimen. Staff name: Carlos Boothe MD Date: 03/30/2017 * Sara Razo RN - 03/30/2017 3:26 AM 3D MODELER No solid Bm this far, only smear as recorded in the doc flow sheet. No complains of discomfort at this time. * Sammie Selby, CHARLIE - 03/29/2017 4:34 PM 3D MODELER No documented BM since 03/24. PRN suppository, MOM, and all stool softeners given. Fleets enema given at 1610. Small liquid BM - most likely the saline from enema. Attempted BSC several times with no results. Pt became diaphoretic and uncomfortable - transferred back to bed with max assist x2. Vitals WNL, see doc flowsheet. Paged salesperson sewing machines MD. Orders to give magnesium citrate. 1840 - still no BM, only passing liquid. Paged MD for possible KUB. * Joyce Trivedi MA - 03/29/2017 12:06 PM 3D MODELER SPEECH-LANGUAGE PATHOLOGY COGNITIVE ASSESSMENT EVALUATION SUMMARY Summary* Overall Cognitive Severity Level: Mod Cog Func Summary: Patient was seen for a cognitive-linguistic evaluation. Results suggest moderate cognitive impairment primarily with attention, mathematical reasoning and left sided neglect, consistent with right hemisphere stroke. Patient exhibited significant fatigue during this evaluation. Assessment will be ongoing and treatment objects outlined with patient. Dysarthria appears to be resolving. Speech intelligibility was >95%. Patient exhibited a flax affect and speech was monotone. Reduced awareness/insight into his cognitive deficits however patient verbalized motivation to address cognitive deficits. Prognosis: Good (patient with good motivation.) Plan: Continue Treatment Daily, 60 min per day. Results Reported to Physician: (EMR) PRAGMATICS Comments*: Reduced initiation and topic maintenance most likely associated with fatigue. Patient however judged to have mild pragmatic impairment associated with his stroke. BEHAVIOR Comments*: Affect was flat, reduced insight/awareness. Patient was very fatigued however wanting to participate. AUDITORY COMPREHENSION Comments*: No focal language deficits. Followed simple 1-2 part commands, demonstrated comprehension for simple task instructions during the evaluation. Impaired attention skills will impact auditory comprehension as input increases in length and complexity. ORIENTATION Comments*: Oriented to person, place and mostly to time. Patient verbalized some awareness of his current deficits. Patient open to education. AUDITORY ATTENTION/WORKING MEMORY Comments*: Moderate impairment noted with auditory attention and working memory. Digits Forward: 5. Reversed: 2. Counting by Intervals: unable to complete due to the number of errors. Mild to moderate difficulty performing complex automatic sequence tasks. 3 word memory: immediate: 3/3 no cues. Delayed 3 min: 3/3 no cues. AUDITORY MEMORY/SUSTAINED ATTENTION Comments*: WFL's for short paragraphs: 48 words: 4/4. 57 words: 4/5. Discontinued passages of increasing length and complexity on this date due to fatigue. NEW LEARNING: Comments*: To be assessed. Informal assessment suggests due to deficits with attention patient will need much repetition and practice. SEQUENCING/ORGANIZATION Comments*: No difficulty noted with simple functional sequences for ADL's. Abstract sequencing noted increased difficulty due to deficits with working memory: 2/4. Word Fluency: patient generated 17 concrete items within 1 min ( 15=WNL's) Mild perseveration observed. PROBLEM SOLVING Comments*: Verbal problem solving, Hypothetical Questions: 10/13. Thought flexibility judged to be fair+ on verbal problem solving task. REASONING Comments*: Patient performed WFL's on concrete reasoning tasks for ADL's. Deductive Reasonin/4. Inductive Reasonin/6. Figurative Language/ Abstract Reasonin/4. Analogies: 08/10. Idioms: 07/10. MATH/MONEY SKILLS Comments*: Mode anny impairment with mathematical reasoning skills: word math problems: 04/11. Assessment ongoing due to patient fatigue. VISUAL PERCEPTUAL Comments*: Left neglect was apparent. Patient wears glasses. He was asked to read single words: mild to moderate difficulty seeing material. Able to read large print words: 09/11. Sentences: read midline to end, neglecting first part of the sentence. Objective* Relevant Med Background: Information taken from the medical record. The patient is 41 y.o. male with PMH of DVT who was admitted upon transfer from [facility] after developing acute onset left sided weakness on 03/20/2017. He underwent IV tPa and was found to have concerns for right M2 occlusion on imaging studies. He was transferred to [facility] and underwent emergent cerebral angiography which confirmed right M1 and M2 occlusion, although thrombectomy was attempted and unsuccessful. He has experienced an acute right MCA stroke, with resulting dense left flaccid hemiplegia, left sensory deficits, right gaze preference, dysarthria, dysphagia, likely cognitive deficits and significant functional deficits as noted. HEAD CT W/O CONTRAST 03/23/17 FINDINGS: Large subacute right MCA territory infarct is not significantly changed. No evidence of obvious hemorrhagic transformation. There is continued mass effect in the right cerebral hemisphere with diffuse sulcal effacement, effacement of the lateral ventricles, and right to left midline shift measuring approximately 5 mm, previously 4 to 5 mm. Hyperdense right M1 and M2 segments are again noted, consistent with thrombosis. Stable old right cerebellar infarct is noted. Scalp electrodes remain in place, contributing to mild streak artifact which mildly limits evaluation of the jose-white interfaces. No evidence of acute intracranial hemorrhage or extra-axial fluid collection. Visualized paranasal sinuses and mastoid air cells are well aerated. IMPRESSION 1. No significant change in large subacute right MCA territory infarct with unchanged mass effect and mild midline shift. 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 Psychosocial Status: Willing and Cooperative to Participate Persons Present: None Subjective* Pain: Patient has no complaint of pain Trach Presence: No Feeding Tube Present During Eval: None Education* Persons Educated: Patient Barriers To Learning: Cognitive Deficits, Family Not Present Teaching Methods: Verbal Topics: Memory, Discussed cognitive deficits typically associated with right hemisphere stroke Patient Response: Verbalized Understanding, More Instruction Required Goal Formulation: With Patient Speech Campaign Worker Goals Will improve attention skills necessary for safety in the home with: Minimal to Moderate assist Will improve skills necessary for KENNY's and safety in the home with: Minimal to Moderate assist Speech Short Term Goals Will demonstrate higher level reasoning skills for return home with: 80% accuracy, Minimal to Moderate cues Will demonstrate mathematical problem solving skills for ADLs with: 80% accuracy , Minimal to Moderate cues Will demonstrate visual scanning skills with: 80% accuracy, Minimal to Moderate cues Will demonstrate functional reading skills for ADLs with: 80% accuracy, Minimal to Moderate cues Will demonstrate memory for safety sequences for transfer and ADLs with: 80% accuracy, Minimal to Moderate cues Therapist: JACK Prakash/MAE/NURSING CARE PARTNER Date: 03/29/2017 * Geovanny Holloway MD - 03/29/2017 6:50 AM 3D MODELER Formatting of this note may be different from the original. ATTESTATION I personally observed the resident performing the E/M, discussed case with resident, and concur with resident documentation of history, physical assessment and treatment plan unless otherwise noted. -Labs and vitals reviewed and stable. Leukocytosis improved to 14.3. Na stable 132. -Urinary Tract Infection: treating with ciprofloxacin, follow-up sensitivities Staff name: Geovanny Holloway MD Date: 03/29/2017 Physical Medicine & Rehabilitation Progress Note Today's Date: 03/29/2017 Admission Date: 03/28/2017 LOS: 1 day Principal Problem: Cerebrovascular accident (CVA) due to thrombosis of right middle cerebral artery (HCC) Active Problems: Left hemiparesis (HCC) UTI (urinary tract infection) Urinary retention Left-sided neglect Impaired mobility and ADLs Hyponatremia Assessment/Plan: Thomas Osei is a 41 y.o. male admitted to [facility] on 03/28/2017 with the following issues: stroke Rehabilitation Plan Rehabilitation: Patient will continue with comprehensive therapies including physical therapy, occupational therapy, speech & language pathology, specialized rehab nursing, neuropsychology and physiatry oversight. Goals: TBD Tentative discharge date: TBD Recommended therapy and equipment: TBD Daily Functional Update: Transfers Device Sit to Stand Transfer: Assistive Device: None (03/27/2017 1:00 PM) No Data Recorded Gait Device Assist Required Distance Gait: Assistive Device: Hand Hold Assist (03/21/2017 10:00 AM) No Data Recorded Gait Distance: 10 feet (03/21/2017 10:00 AM) Standing Balance Static Dynamic No Data Recorded No Data Recorded Toileting Assist Required Equipment Toilet Transfer Toileting Assist: Total Assist (03/27/2017 3:00 PM) No Data Recorded No Data Recorded Dressing Lower Body No Data Recorded Right MCA CVA (M2 occlusion) - cryptogenic, as per workup so far - ongoing left upper and lower extremity paresis, left facial droop, dysarthria , right gaze preference - LDL 118 - HbA1c- 5.2 - ECHO (TTE) - EF 55%, mild hypokinesis of basal to mid anteroseptal ji, normal atria size, no PFO - Hypercoagulable workup so far: Cardiolipin IgG :13, Cardiolipin IgM :13, Activated Protein C Resistance: 2.6, Factor 2 Mutation : negative, Negative immunophenotypic study, no evidence of paroxysmal nocturnal hemoglobinuria, BCR/ ABL1 normal - NICKO- no evidence of interarterial shunting. No thrombus. Plan: > ASA 325mg Qday > Atorvastatin 40mg Qday > Fluoxetine 20mgQday for motor recovery > Hematology follow up (Dr. Esparza 04/17/17) > Neurology stroke clinic follow up Left sided hemiplegia Left neglect Impaired mobility and ADLs - PT/OT - on fluoxetine for motor recovery after stroke Cognitive impairment - NURSING CARE PARTNER cog eval and remediation Hiccups - discharged from acute hospitalization on baclofen 20mg TID > decreased to 10mg TID 03/29 UTI - WBC 18 on 03/28 - Afebrile, no tachycardia noted, no other signs of infection - CXR - normal - UA - many bacteria, 1+ leukocytes, nitrite neg - Started Fosfomycin at acute hospitalization Plan > due to male sex and straight caths required from urinary retention, will treat this as complicated UTI > ciprofloxacin 500mg BID x 7 days > will f/u with cultures Urinary retention - likely related to UTI - requiring multiple straight catheterizations > doxazosin 2mg PO Qday Hyponatremia - secondary to CVA > NaCl 17meq BID > will monitor. May consider fluid restriction if worsens Back Pain - acute on chronic > Lidocaine patches > Naproxen Sodium Pain Management: Scheduled tylenol 1g TID. Oxycodone, robaxin, lidocaine patch , robaxin, naproxen all are prn Skin: There are no pressure sores currently. Turn patient every 2 hours while in bed and perform pressure relief in wheelchair every 20 minutes for 20 seconds. Bowel: continent of bowel Bladder: continent of bladder, BVIs x3 until <125ml and ISC for >300ml Nutrition: Current diet: regular Mental Health: consult neuropsychology to provide support / counseling DVT Prophylaxis: Heparin Jomar Sargent MD Pager [phone] Subjective No overnight events. Patient didn't sleep very well overnight. He complains of some L hip and L shoulder pain today. No other acute complaints. He's ready to get working with therapy today. Objective Vital Signs: Last Filed Vital Signs: 24 Hour Range BP: 129/69 (03/29 413) Temp: 36.3 C (97.3 F) (03/29 413) Pulse: 65 (03/29 413) Respirations: 18 PER MINUTE (03/29 413) SpO2: 96 % (03/29 413) O2 Delivery: None (Room Air) (03/29 413) Height: 188 cm (74.02") (03/28 1528) BP: (112-135)/(60-75) Temp: [36.3 C (97.3 F)-37.1 C (98.7 F)] Pulse: [65-79] Respirations: [16 PER MINUTE-18 PER MINUTE] SpO2: [96 %-98 %] O2 Delivery: None (Room Air) Intensity Pain Scale 0-10 (Pain 1): 4 (03/28/17 1900) Vitals: 03/28/17 1528 Weight: 78 kg (172 lb) Intake/Output Summary: (Last 24 hours) Intake/Output Summary (Last 24 hours) at 03/29/17 0650 Last data filed at 03/29/17 0437 Gross per 24 hour Intake 400 ml Output 800 ml Net -400 ml Stool Occurrence: 0 BVI (Bladder Scan)(mL): 5 milliliters (03/29/17 0437) Last BM Date: 03/25/17 Lab: No results found for this visit on 03/28/17 (from the past 24 hour(s)). Physical Exam VS: BP 129/69 (BP Source: Arm, Right) | Pulse 65 | Temp 36.3 C (97.3 F) | Ht 188 cm (74.02") | Wt 78 kg (172 lb) | SpO2 96% | BMI 22.07 kg/m2 GEN: awake, alert, NAD HEAD: normocephalic, atraumatic CV: RRR, no murmur RESP: CTAB, no w/r ABD: non-distended, +BS EXT: no edema or erythema in bilateral lower limbs SKIN: no obvious rashes or lesions MSK: no hypo/hypertonicity noted, L hemiplegia, pain L shoulder with PROM NEURO: Mental Status: alert Orientation: fully oriented Cognition: normal processing speed for casual conversation Speech: mildly dysarthric but clear Cranial Nerves: L facial droop, L neglect improving Motor: Right sided strength 5/5, Left sided strength 0/5 in all myotomes Therapy Notes & Labs Reviewed. Jomar Sargent MD * Dasia Sheth, RT - 03/28/2017 5:24 PM 3D MODELER Formatting of this note may be different from the original. RESPIRATORY THERAPY ADULT PROTOCOL EVALUATION RESPIRATORY PROTOCOL PLAN Medications Note: If indicated by protocol, medication orders will be placed by therapist. Procedures PATIENT EVALUATION RESULTS Chart Review * Pulmonary Hx: No pulmonary diagnosis OR no smoking hx * Surgical Hx: No surgery OR last surgery > 6 weeks ago OR trach/stoma (BA) * Chest X-Ray: Clear OR not available * PFT/Oxygenation: FEV1, PEFR > 80% predicted OR physically unable to perform OR Pa02 >80 RA OR Sp02 >95% RA Patient Assessment * Respiratory Pattern: Regular pattern and rate OR good chest excursion with deep breathing * Breath Sounds: Clear and able to auscultate bases posteriorly * Cough / Sputum: Strong, effective cough OR nonproductive * Mental Status: Alert, oriented, cooperative * Activity Level: Ambulatory with assistance Priority Index Total Points: 1 Points * Priority Index: 1 PRIORITY INDEX GUIDELINES* Priority Points 1 0-9 points 2 9-18 points 3 > 18 points + Pulm Dx or Home Rx *Higher points indicate higher acuity. Therapist: DASIA SHETH, RT Date: 03/28/2017 [place] AC=Airway clearance AM=Aerosolized medication BA=Sunol aerosol DB&C=Deep breathe & cough FEV1=Forced expiratory volume in first second) IC=Inspiratory capacity LE=Lung expansion MDI=Metered dose inhaler Neb=Nebulizer O2=Oxygen Oxim=Oximetry PEFR=Peak expiratory flow rate TAX PROFESSIONAL=Rapid Response Team * Timbo Nichols RN - 03/28/2017 3:47 PM 3D MODELER Patient arrived on unit via EMS accompanied by EMS personel. . Patient transferred to the bed with assistance. Assessment completed, refer to flowsheet for details. Orders released, reviewed, and implemented as appropriate. Oriented to surroundings, call light within reach. Plan of care reviewed. Will continue to monitor and assess. in this encounter H&P Notes * Geovanny Holloway MD - 03/28/2017 3:57 PM 3D MODELER Formatting of this note may be different from the original. ATTESTATION I personally performed the lima portions of the E/M visit, discussed case with resident and concur with resident documentation of history, physical exam, assessment, and treatment plan unless otherwise noted. The patient was seen and personally examined by me within 24 hours of admission to the inpatient rehabilitation unit. The patient was seen by me on 03/28/2017 at 4:30 PM. I have made adjustments and additions directly to the text below when indicated. I have the following additional comments: In brief summary, this is a 41 y.o. male without a past significant past medical history who presents for inpatient rehabilitation s/p R MCA stroke. The prior functional status was independent. Current impairments include left hemiparesis, left neglect/ visual field cut, dysarthria. Patient is currently requiring max assist for basic mobility and self-care. This patient meets medical necessity and has functional deficits requiring the intensity of therapy available at an IRF level of care. The patient can participate in and can fully benefit from the services offered in the IRF setting including 24 hour rehabilitation nursing, daily physician oversight, and complex interdisciplinary rehabilitation including PT, OT, ST totaling at 3 hours per day, 5 days per week of therapy. The ELOS is 14-21 days with a goal for a modified impendent to min assist functional level at the time of discharge. Their rehab potential is good and I do not expect their medical co- morbidities to interfere with full rehabilitation participation. Staff name: Geovanny Holloway MD Date: 03/28/2017 Physical Medicine & Rehabilitation History & Physical Note Date of Service: 03/28/2017 Thomas Osei is a 41 y.o. male. : 1975 Primary Insurance: [employer] Financial Class: [employer] Date of Admission: 03/28/2017 Precautions: Fall Weight bearing Precautions: none Active Problems Principal Problem: Cerebrovascular accident (CVA) due to thrombosis of right middle cerebral artery (HCC) Active Problems: Left hemiparesis (HCC) UTI (urinary tract infection) Urinary retention Left-sided neglect Impaired mobility and ADLs Assessment & Plan Thomas Osei is a 41 y.o. male admitted to [facility] on 03/28/2017 with the following issues: stroke Impairments: cognitive impairments, dysarthria, hemiplegia, neglect, neurogenic bladder, poor activity tolerance and spasticity Activity Limitations: grooming, bathing, dressing - lower, toileting, transfers , ambulation, wheelchair, stairs, comprehension and problem solving Participation Restrictions: unable to return home safely Rehabilitation Plan Patient will be admitted to inpatient rehabilitation for comprehensive therapies to include Physical therapy, Occupational therapy and Speech therapy Rehabilitation Prognosis: Fair to good Tolerance for three hours of therapy a day: Fair to good Goals/Barriers/Facilitators Family / Patient Goals: return home with family assistance Mobility Goals: min-A Activities of Daily Living (ADLs) Goals: min-A Cognition / Communication Goals: Speech therapy will evaluate and treat cognition and communication deficits and assess for safe swallow Barriers: High burden of care and Poor family/social support Facilitators: patient motivation, improving strength / endurance and improving medical condition Current Medical Problems/Risks of Medical Complications/Management Hospital problems and plan: Right MCA CVA (M2 occlusion) - cryptogenic, as per workup so far - ongoing left upper and lower extremity paresis, left facial droop, dysarthria , right gaze preference - LDL 118 - HbA1c- 5.2 - ECHO (TTE) - EF 55%, mild hypokinesis of basal to mid anteroseptal ji, normal atria size, no PFO - Hypercoagulable workup so far: Cardiolipin IgG :13, Cardiolipin IgM :13, Activated Protein C Resistance: 2.6, Factor 2 Mutation : negative, Negative immunophenotypic study, no evidence of paroxysmal nocturnal hemoglobinuria, BCR/ ABL1 normal - NICKO- no evidence of interarterial shunting. No thrombus. Plan: > ASA 325mg Qday > Atorvastatin 40mg Qday > Fluoxetine 20mg Qday for motor recovery > Hematology follow up ( Dr Esparza 04/17/17) > Neurology stroke clinic follow up Left sided hemiplegia Left neglect Impaired mobility and ADLs - PT/OT -consider SSRI (fluoxetine) for motor recovery after stroke Cognitive impairment - NURSING CARE PARTNER cog eval and remediation ? Spasticity - discharged from acute hospitalization on baclofen 20mg TID - will continue for now, though on admission exam, pt is fairly loose UTI - WBC 18 this am (10 yesterday) - Afebrile, no tachycardia noted, no other signs of infection - CXR - normal - UA - many bacteria, 1+ leukocytes, nitrite neg - Started Fosfomycin at acute hospitalization Plan > due to male sex and straight caths required from urinary retention, will treat this as complicated UTI > ciprofloxacin 500mg BID x 7 days > will f/u with cultures Urinary retention - likely related to UTI - requiring multiple straight catheterizations > doxazosin 2mg PO Qday Hyponatremia - secondary to CVA > NaCl 17meq BID > will monitor. May consider fluid restriction if worsens Back Pain - acute on chronic > Lidocaine patches > Naproxen Sodium Pain Management: tylenol, norco, lidocain patch, robaxin, naproxen all on JUN Skin: There are no pressure sores currently. and Turn patient every 2 hours while in bed and perform pressure relief in wheerchair every 20 minutes for 20 seconds. Bowel: continent of bowel Bladder: continent of bladder, BVIs x3 until <125ml and ISC for >300ml Nutrition: Current diet: regular Mental Health: consult neuropsychology to provide support / counseling DVT Prophylaxis: Heparin History of Present Illness Hospital Course: Mr. Osei is a 41 year old male with no significant PMH with sudden onset left sided weakness, facial droop, dysarthria, presented to [facility] on 03/20. Found to have a right M2 occlusion there. Received tPA, which briefly improved symptoms during transport to . On arrival here, NIHSS fluctuated 6-12. Thrombectomy attempted, but unsuccessful. Today, the patient is complaining of some chronic low back pain. Otherwise, he denies any COY, CP, SOB, n/v/abdominal pain. He does endorse difficulty with constipation and also urinary retention. Progressed to regular diet. He is frustrated with continued left sided weakness. Past Medical History Past Medical History: Diagnosis Date DVT (deep venous thrombosis) (HCC) following traumatic leg fracture. completed 3 month course of warfarin Past Surgical History No past surgical history on file. Family\\Social History Social History Social History Marital status: Spouse name: N/A Number of children: 2 Years of education: N/A Social History Main Topics Smoking status: Never Smoker Smokeless tobacco: Never Used Alcohol use Not on file Drug use: Not on file Sexual activity: Not on file Other Topics Concern Not on file Social History Narrative Family History Problem Relation Age of Onset Stroke Mother Medications: [START ON 03/29/2017] aspirin tablet 325 mg 325 mg Oral QDAY [START ON 03/29/2017] atorvastatin (LIPITOR) tablet 40 mg 40 mg Oral QDAY baclofen (LIORESAL) tablet 20 mg 20 mg Oral TID ciprofloxacin (CIPRO) tablet 500 mg 500 mg Oral BID(02-26) docusate (COLACE) capsule 100 mg 100 mg Oral BID [START ON 03/29/2017] doxazosin (CARDURA) tablet 2 mg 2 mg Oral QDAY [START ON 03/29/2017] fluoxetine (PROZAC) capsule 20 mg 20 mg Oral QDAY heparin (porcine) PF syringe 5,000 Units 5,000 Units Subcutaneous Q8H [START ON 03/29/2017] lidocaine (LIDODERM) 5 % topical patch 1-2 patch 1-2 patch Topical QDAY methocarbamol (ROBAXIN) tablet 1,000 mg 1,000 mg Oral TID pantoprazole DR (PROTONIX) tablet 40 mg 40 mg Oral QDAY() senna (SENOKOT) tablet 2 tablet 2 tablet Oral QHS sodium chloride(#) inj for po solution 17 mEq 17 mEq Oral BID PRN Medications: acetaminophen Q4H PRN, aluminum/magnesium hydroxide Q4H PRN, bisacodyl QDAY PRN , HYDROcodone/acetaminophen Q6H PRN, milk of magnesia (CONC) Q4H PRN, naproxen BID PRN, ondansetron Q4H PRN Allergies: No Known Allergies Prior Level of Function Self-Care/ADLs: independent Mobility: independent Home Environment Home Situation: Lives with Family (03/27/2017 1:00 PM) Patient Owned Equipment: None (03/27/2017 1:00 PM) Type of Home: House (03/27/2017 1:00 PM) Entry Stairs: 1-2 Stairs (03/27/2017 1:00 PM) In-Home Stairs: 1-2 Stairs (03/27/2017 1:00 PM) Comments: Patient was independent prior to admission with no history of falls. Patient and spouse have 2 - 9year old daugthters. (03/21/2017 10:00 AM) No Data Recorded Support System: Lives with spouse and young daughter Current Level of Function Physical Therapy: Mobility Progressive Mobility Level: Sit on edge of bed Level of Assistance: Assist X1 Assistive Device: None Time Tolerated: 31-60 minutes Activity Limited By: Weakness;Fatigue;Patient request to stop Bed Mobility/Transfers Bed Mobility: Rolling: Maximum Assist Bed Mobility: Supine to Sit: Maximum Assist Bed Mobility: Sit to Supine: Maximum Assist Transfer Type: Sit to/from Stand (1/2 stand) Transfer: Assistance Level: From;Bed;Maximal Assist Transfer: Assistive Device: None Transfers: Type Of Assistance: For Strength Deficit;For Balance Occupational Therapy: ADL's Grooming Assist: Stand By Assist Grooming Deficits: Wash/Dry Face Toileting Assist: Total Assist Functional Transfer Assist: Total Assist Comment: Assists with rolling but requires assist X2, dependent lift transfer to chair. Pt impulsive and requires repeated cueing to lean back in chair as pt suddenly reaching/pulling self forward or to side before brakes of chair are locked and before pillows positioned for postural support. Once positioned, pt washed face, then requested to be reclined in chair. This was done. PADS alarm set, [place] strap in place and call light in reach. Speech Therapy: Summary: A motor speech evaluation and dysphagia tx session were completed this date w/ pt's spouse present. Pt presents w/ mild dysarthria and characteristics observed appear to be most consistent with unilateral upper motor neuron dysarthria. Pt currently presenting w/ mild oropharyngeal dysphagia 2* impaired ROM and weakness. Please see below for additional documentation. RECOMMENDATIONS: Advance to regular solids & continue w/ thin liquids given 100% supervision w/ p.o. intake to ensure pt following swallow strategies. Pills w/ thin liquids. Ongoing speech tx for dysphagia, cognitive, and dysarthria tx 3-5x/wk during acute hospitalization & at next level of care. Good oral care to minimize pt's risk of aspirating bacteria in oral secretions. Discussed pt w/ RN and primary team paged. Consistent supervision recommendedupon dischargeas anticipate patient's impaired memory &attention will potentially impacthissafety. Assist w/ finance & medication management and meal preparation upon discharge secondary topatient'simpaired attention and/or memory. Review of Systems A 10 point review of systems was negative except for: those stated in HPI. Physical Exam BP: 131/67 (03/28 1528) Temp: 36.7 C (98 F) (03/28 1528) Pulse: 70 (03/28 152) Respirations: 18 PER MINUTE (03/28 1528) SpO2: 96 % (03/28 152) O2 Delivery: None (Room Air) (03/28 1528) Height: 188 cm (74.02") (03/28 1528) Body mass index is 22.07 kg/(m^2). Gen: Alert & Oriented X 3, No Acute Distress HEENT: NCAT, PERRL, MMM, L neglect Heart: Regular Rate & Rhythm, no m/g/r Lungs: Clear to auscultation bilaterally, no w/r/r Abdomen: Soft, non-tender, non-distended, +BS : no [place] Skin: no rashes or lesions present Ext: no c/c/e MS: Root Right Left Shoulder Abduction C5 5 0 Elbow Flexion C5 5 0 Elbow Extension C7 5 0 Wrist Extension C6 5 0 Finger Flexion C8 5 0 Finger Abduction T1 5 0 Hip Flexion L2 5 0 Knee Flexion L5/S1 5 0 Knee Extension L3 5 0 Dorsiflexion L4 5 0 Plantarflexion S1 5 0 Neuro: Cranial Nerves Left facial droop, left sided neglect [place] Normal on right Finger to Nose Normal on right Rapid Alternating Movements Normal on right Upper Extremity Tone Normal on BUE Lower Extremity Tone Normal on BLE Upper Extremity Sensation Intact to light touch on right, mildly decreased on left Lower Extremity Sensation Intact to light touch on right, mildly decreased on left Clonus Negative Bilaterally Memory/Cognition/Speech oriented x 3. Dysarthric speech. Some answers not entirely appropriate. Cognition appears poor. Intake/Output Summary: No intake or output data in the 24 hours ending 03/28/17 1557 Stool Occurrence: 1 (03/24/2017 7:00 AM) Last BM Date: 03/25/17 (03/28/2017 9:03 AM) BVI (Bladder Scan)(mL): 0 milliliters (03/28/2017 3:49 AM) Straight Cath (mL): 350 (03/27/2017 4:14 PM) Bowel Accident: 1 (03/24/2017 7:00 AM) No Data Recorded Oral Diet Order: Full Liquid;Lampeter Thick Liquids (NPO prior to procedure) ( 2:00 PM) Basic Metabolic Profile Lab Results Component Value Date/Time NA 133 (L) 03/28/2017 01:45 PM K 3.8 03/28/2017 05:10 AM CA 9.1 03/28/2017 05:10 AM CL 101 03/28/2017 05:10 AM CO2 26 03/28/2017 05:10 AM Lab Results Component Value Date/Time BUN 19 03/28/2017 05:10 AM CR 0.91 03/28/2017 05:10 AM GLU 114 (H) 03/28/2017 05:10 AM CBC w/Diff Lab Results Component Value Date/Time WBC 18.0 (H) 03/28/2017 05:10 AM RBC 5.00 03/28/2017 05:10 AM HGB 16.0 03/28/2017 05:10 AM HCT 45.5 03/28/2017 05:10 AM MCV 91.0 03/28/2017 05:10 AM MCH 32.0 03/28/2017 05:10 AM RDW 13.2 03/28/2017 05:10 AM PLTCT 239 03/28/2017 05:10 AM MPV 8.4 03/28/2017 05:10 AM Lab Results Component Value Date/Time NEUT 83 (H) 03/28/2017 05:10 AM ANC 14.80 (H) 03/28/2017 05:10 AM LYMA 8 (L) 03/28/2017 05:10 AM ALC 1.50 03/28/2017 05:10 AM IKE 9 03/28/2017 05:10 AM AMC 1.70 (H) 03/28/2017 05:10 AM EOSA 0 03/28/2017 05:10 AM AEC 0.00 03/28/2017 05:10 AM BASA 0 03/28/2017 05:10 AM ABC 0.00 03/28/2017 05:10 AM Radiology: 03/20 CT head IMPRESSION 1. Right lateral frontal and insular decreased cerebral blood volume corresponding to loss of jose-white differentiation compatible with completed infarct. This is less than one third of the right MCA vascular distribution. 2. Large right MCA distribution decreased cerebral blood flow suggesting tissue at risk. 3. Hyperdense vessel in the right sylvian fissure most likely right middle cerebral artery thrombus within an M2 branch. 03/20 MRI head IMPRESSION 1. Subacute (6 hours to 7 days in age) right MCA distribution infarct without mass effect or hemorrhagic transformation. 2. Loss of normal flow voids within the right sylvian fissure compatible with thrombus. 3. Old right cerebellar lacunar infarcts. 03/23 CT head IMPRESSION 1. No significant change in large subacute right MCA territory infarct with unchanged mass effect and mild midline shift. 03/28 CXR IMPRESSION Table chest radiograph demonstrating no acute cardiopulmonary abnormalities. 03/28 CT maxifacial/sinus IMPRESSION 1. Several tiny maxillary sinus mucus retention cysts or polyps. 2. No significant change in the large subacute right MCA territory infarct. 03/26 ECHO Normal chamber sizes, Normal LVEF 55% Mild basal to mid anteroseptal hypokinesis noted No intracardiac or LA appendage thrombus visualized Normal cardiac valve structure and function Bubble study or color flow demonstrated no evidence of interatrial shunting. Late appearance of bubbles in the RA is likely 2/2 transpulmonary shunting as part of normal physiology. in this encounter Consult Notes * Sindy Mccloud, PhD - 03/29/2017 5:21 PM 3D MODELER Associated Order(s): CONSULT NEUROREHABILITATION PSYCHOLOGY Pt seen b/s [id number] with his also present and participating in initial clinical interview with pt's consent. Dx: I63.311 CVA due to thrombus of R MCA; r/o cognitive impairment Requesting Physician: Buddy Reason for Request: coping Relevant History: The following history was taken from available medical records unless otherwise indicated. Pt is a 41 year old male with no significant PMH with sudden onset left sided weakness, facial droop, dysarthria , who initially presented to [facility] on 03/20. He was found to have a right M2 occlusion and received tPA, which briefly improved symptoms during transport to . On arrival here, NIHSS fluctuated 6-12. Thrombectomy attempted , but unsuccessful. He was transferred to [facility] on 03/28/17 for continued acute medical management, nursing cares, and comprehensive therapy services. Medical/Surgical History: unremarkable Family Medical History: Unremarkable per pt Social/Vocational History: Pt lives with his and their two 9 yo daughters. 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 He was previously very active (swimming, cycling). He does not smoke, consume alcohol, or use illicit drugs. Psychiatric history is reportedly negative for formal diagnosis or treatment. Findings: Pt was awake, alert, pleasant, and cooperative. He appeared to be able to provide details regarding his personal history without difficulty and his corroborated and provided collateral information. At times, pt was slow to respond. He had quiet voice. Thought processes appeared logical and goal-oriented. Affect was somewhat blunted. Pt reported no changes or difficulties regarding mood. He said his pain is managed okay, but he has problems with sleep due to spasms and restlessness at night. They said a sedative medication was added for him to trial tonight; he said he trialed melatonin and it was not helpful. He reported chronic LBP and some recent hip pain. He was having significant headaches after admission but those have been mild and tolerable recently and his said that leaving the lights off or low helps to reduce his spotty vision and therefore his headaches. He reported trouble initiating his thoughts and responses at times, which he said he shared with ST who did a cog eval earlier today. He reported no difficulties with appetite. I described and recommended relaxed breathing and visualization (both of which he was familiar with, as well as biofeedback) to assist with pain management. He verbalized understanding and agreement to trial. His was interested in use of these techniques as well. The purpose and method of the neurorehabilitation psychology service was described to the pt and his . He verbalized understanding and agreement to participate. Rehabilitation Recommendations: 1. Pt's mood, coping, and pain management will be monitored with treatment initiated as indicated. 2. Pt and his family will be provided with feedback and education as appropriate. 3. This service will return to administer cognitive and mood screens ( described to pt and and they agreed to this). 4. He may benefit from reminders to use relaxation techniques to assist with pain management. Expected Outcomes. 1. Pt will participate appropriately in rehabilitation therapy services. 2. Pt will likely require assistance at home to be provided by family. Thank you for asking our advice and opinion regarding the care of this pleasant pt. Please contact me at [phone] if I can assist further. Joann Mccloud, PhD, ABPP in this encounter Miscellaneous Notes * Case Mgmt DC Plan - Lesa Henry - 04/30/2017 5:41 PM 3D MODELER Case Management Progress Note NAME:Thomas Osei : AGE: 41 y.o. ADMISSION DATE: 03/28/2017 DAYS ADMITTED: LOS: 33 days Todays Date: 04/30/2017 Plan Anticipated dc to home tomorrow 05/01at amb level min A with wc near 11am. [facility] and travel a few times a week for therapy. Pt will receive PT/OT/ST. Interventions ? Support Support: Pt/Family Updates re:POC or DC Plan LIVIER spoke with pt to finalize dc plans. LIVIER addressed all questions and concerns. LIVIER contacted pt's Dasia [phone] to finalize dc plans. SW confirmed plan to arrive here after dropping kids off at school. Dasia stated she will likely arrive near 10:30am and they will dc directly to [facility] for evaluation. Dasia requested medications be sent to [facility] in [place]. confirmed she has needed dme and ramp at home. ? Info or Referral Information or Referral to Community Resources: Lodging and/or Detention, General Community Resources (LIVIER provided family with [employer] application, lodging resources and short lease apartment resources. SW also provided family with private duty caregiver list.) ? Discharge Planning Discharge Planning: Durable Medical Equipment and Supplies ([facility] PT/OT/ST) ? Medication Needs ? Financial ? Legal ? Other Disposition ? Expected Discharge Expected Discharge Date: 05/01/17 Expected Discharge Time: 1100 ? Discharge Disposition Lesa Henry [facility] *[phone] * Rehab Team Conference - Kortney Gonsalves - 04/30/2017 10:06 AM 3D MODELER Formatting of this note may be different from the original. Team Conference Note Date of Admission: 03/28/2017 Date of Team Conference: 04/30/2017 Thomas Osei is a 41 y.o. male. : 1975 Team Conference Attendees:Geovanny Holloway MD, Attending Physician; Grayson Meyers MD Resident Physician; Alpa Danielle MD, Resident Physician; Lesa Henry [facility], Social Work; Cornelius Fragoso RNfire lieutenant marine; Kortney Gonsalves TAQUERIA/Marilyn LE, Criminal Intelligence Analyst; Jazz Richmond RN, Nurse Ticketing Agent; Karolina Boss RN, Rehab Top Precipitator Operator Helper Sindy Mccloud PhD, ABPP, Neuropsychology; Julia Chakraborty PhD, Post Doctoral Fellow, Neuropsychology;Viji Cota MA, Institutional Custodian; Oly Rodriguez PharmD, Pharmacy;Theodora Gabriel RD LD, Dietary ; Asha Garcia NURSING CARE PARTNER, Speech Therapy; Danielle Whitehead OTR, Occupational Therapy; Kirstin Baker DPT, Physical Therapy; Dunia Meraz RN, Nursing Medical Update: Dx: R MCA stroke Deficits: Left hemiplegia, Left neglect, Left facial droop, spasticity, cognitive impairment - Stroke: Unsure of cause. Cont ASA, atorvastatin, fluoxetine - Spasticity/spasms/neuropathic pain: baclofen 20mg TID, gabapentin 300mg qhs. - UTI: Completed Abx 04/04 - Urinary retention: tapered off doxazosin, no signs of retention - Hyponatremia: tapered off salt tabs - TMJ pain - stable, may need f/u with his dentist Team Goal: Patient will perform: household mobility, at wheelchair level, Minimum assistance, With caregiver assistance Pt will perform basic care and transfer with: Stand by assistance, Progressing Discharge Planning Discharge Date: 05/01/17 Pt will begin [facility] [place] on 05/01/17 a few times a week. will provide consistent supervision to pt at home.Family has obtained needed dme and ramp. Type of Residence: Home, independent Living Arrangements: Spouse/significant other, Children (Pt lives with Dasia and their 2 dgts both 9.) Bathroom Shower / Tub: Tub/Shower Unit, Walk-in Shower (Pt will use tub/shower as walk in shower is very small.) Bathroom Toilet: Standard Bathroom Accessibility: Accessible via Walker (Pt's weber bath with tub/shower is rw accessible, however master fiber optic technician bath is not rw accessible, however will need to use at night for toileting.) How many levels in the residence?: 2 (Pt has 2 steps to enter home and 1 step to master fiber optic technician. Pt would like to climb 12 steps to reach dgt's fiber optic technician with bannister half way and no rail further.) Can patient live on one level if needed?: No (Pt has 1 step to fiber optic technician.) Support Systems: Spouse/Partner ( Dasia is primary support and she reports she can take some time off and do some network director upon initial dc. 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 Malcolm Childers in [place], [place] . DME DME at home: None Home Health Receiving home health: No Plan Home with family assist and Day Program OT/PT/ST vs outpatient therapies if unable to secure housing in [place] area. Neuropsych eval DME Manual wheelchair with cushion (eval completed), tub transfer bench, grab bars, BSC Rehabilitation Plan Progress Upper body dressing progressing to SBA/Megan (varied consistency with task); demos good understanding of mally-dressing technique Improved visual scanning/attention to L side Stand pivot transfer with minimal assistance x1 Squat pivot transfer with standby assist x1 R biceps, adductors, internal rotation and grasp activation noted LLE muscle activation with closed chain and open chain activities Wheelchair propulsion is modified independent Continued family training for transfers/self-care tasks in standing, with pt progressing to Megan with caregiver assist Improved ease with toileting/toilet transfers with use of BSC placed over existing toilet to increase height and provide armrest support Patient is aware of his deficits and understands left hemisphere dysfunction. When tasks are broken down into short segments and breaks are provided, performance notes mild improvement. Barriers/Concerns Moderate burden of care for ADLs and related transfers Decreased initiation with transfers, has taken over 40 minutes to initiate 1 transfer from bed to wheelchair. Reports he will be alone at times while spouse is at work Continues to require assist for toileting, LE dressing tasks and tasks in standing Patient just informed therapists that bathroom door width is not wide enough for his wheelchair Reduced initiation and poor sustained attention impacts performance on cognitive tasks. Patient becomes frustrated easily when attention impacts his ability to perform simple tasks (such as simple single digit addition and subtraction). Plan facilitation of hamstring contraction, gait, reciprocal stairs for neuro re-ed, repeat sit to stands with forced LLE use, LLE forced use activities, standing balance, 4- point, tall kneeling, pivot transfers, pilates reformer Speech therapy will continue to follow for Right Hemisphere Dysfunction Spasms to the left arm and left leg, prn robaxin.Patient requests not to take Tylenol. CT of head due to decreased initiation. Encourage attention/scanning to left side Proper positioning of LUE/LLE in chair/bed, please follow mally positioning sheet Encourage pt to perform dressing, grooming tasks Encourage pt to participate in all toileting tasks Monitor mood and coping Graduation Day today Goals Speech Campaign Worker Goals Will improve attention skills necessary for safety in the home with: Minimal to Moderate assist Will improve skills necessary for KENNY's and safety in the home with: Minimal to Moderate assist Weekly Goals Weekly Bed Mobility Goals: Patient will perform sit to supine with, Patient will perform supine to sit with Patient will perform sit to supine with: Modified independent, Progressing Patient will perform supine to sit with: Modified independent, Progressing Weekly Transfer Goals: Patient will complete sit to stand transfer with, Patient will complete stand to sit transfer with, Patient will complete stand pivot transfer with Patient will complete sit to stand transfer with: Stand by assistance, Progressing Patient will complete stand to sit transfer with: Stand by assistance, Progressing Patient will complete stand pivot transfer with: Minimum assistance, Achieved Weekly Ambulation/Stairs Goals: Patient will ambulate, Patient will ascend/ descend Patient will ambulate: 50 feet, Moderate assistance, Achieved Patient will ascend/descend: 2 stairs, Moderate assistance, No rail, Progressing Patient will propel manual wheelchair on level surfaces with: Modified Williams, Achieved Weekly Goals ADL Goals: Dressing UE, Dressing LE, Grooming, Eating Patient Will Perform Eating: w/ Stand By Assist, Met, Modified Williams Patient Will Perform UE Dressing: w/ Minimum Assist, Met, Modified Independent Patient Will Perform LE Dressing: w/ Maximum Assist, Met, w/ Minimum Assist Patient Will Perform Grooming: Met, in Chair, w/ Stand By Assist Pt will demonstrate simple kitchen management with ___ at ___: Minimum assistance, Progressing Pt will scan environment: 100% of the time, With minimal cues, Progressing Speech Short Term Goals Will demonstrate higher level reasoning skills for return home with: Progressing Will demonstrate mathematical problem solving skills for ADLs with: Progressing Will demonstrate visual scanning skills with: Progressing Will demonstrate functional reading skills for ADLs with: Progressing Will demonstrate memory for safety sequences for transfer and ADLs with: Progressing Will demonstrate sustained attention for task performance with: Progressing Nursing Short Term Goals Bladder Management: Yes Patient / Caregiver will verbalize signs & symptoms of urinary tract infection and what action to do with: Progressing Patient will follow time voiding program independently with: Progressing Bowel Management: Yes Will be able to verbalize dietary regimen that will regulate bowel function with : Progressing Medication Management: Yes Will verbalize reason for medication with: Progressing Skin Integrity: Yes Will be free of Stage 1 Pressure Ulcers by performing positioning techniques with: Progressing Will verbalize optimal skin care routine with: Progressing Will verbalize 2-3 risk factors for pressure ulcers with: Progressing Pain Management: Yes Will verbalize pain level at or between ____ at rest: Progressing, 0 Safety: Yes Will demonstrate understanding of mobility precautions with: Progressing Will demonstrate understanding of own limitations with: Progressing Disease Knowledge: Yes Will verbalize risk factors of disease process with: Progressing Nutrition: Yes Patient / Caregiver will be able to verbalize knowledge of proper nutrition to prevent fluid overload with: Progressing Functional Williams Measures Eating FIM: 5 - Set up with containers Grooming FIM: 6 - Modified independence - Extra Time (3 times normal) Bathing FIM: 4 - Minimal contact assistance, patient performs 75% or more of grooming/bathing/dressing/toileting tasks Dressing - Upper Body FIM: 5 - Verbal cues or coaxing Dressing - Lower Body FIM: 4 - Minimal contact assistance, patient performs 75% or more of grooming/bathing/dressing/toileting tasks Toileting FIM: 4 - Minimal contact assistance, patient performs 75% or more of grooming/bathing/dressing/toileting tasks Bladder FIM: 5 - Supervision Bowel FIM: 6 - No bowel movement, medication Transfers FIM: 4 - Minimal assistance, patient performs 75% or more of transferring tasks Toilet Transfers FIM: 3 - Moderate assistance, patient performs 50-74% of transferring tasks (lifting required) Shower Transfers FIM: 3 - Moderate assistance, patient performs 50-74% of transferring tasks (lifting required) Gait: 3 - Moderate assistance, patient expends 50-74% effort, greater than or equal to 150 feet Wheelchair FIM: 6 - Modified independence - Wheelchair, greater than or equal to 150 feet Stairs FIM: 0 - Activity did not occur - Other (comment) (not performed this date) Comprehension FIM: 6 - Modified independence - only mild difficulty understaing complex/abstract information, no prompting required Expression FIM: 5 - Standy prompting - Able to express abstract and/or basic information >90% of the time, prompting <10% Social Interaction FIM: 5 - Supervision required - Able to interact appropriately >90% of the time, prompting <10% Problem Solving FIM: 5 - Standby prompting - Able to recognize problems, make appropriate decisions, initiates and carries out a sequence of steps to solve routine problems >90% of the time, prompting <10% Memory FIM: 5 - Supervision - Able to recognize people frequently encountered, remembers daily routines, responds to requests of others requiring prompting only under stressful or unfamiliar conditions, no more than 10% of time Associated attestation - Geovanny Holloway MD - 04/30/2017 10:14 AM 3D MODELER I personally led the interdisciplinary team meeting and concur with all decisions made by the interdisciplinary team. Geovanny Holloway MD * Case Mgmt DC Ciarra - Lesa Henry - 04/25/2017 4:20 PM 3D MODELER Case Management Progress Note NAME:Thomas Osei : AGE: 41 y.o. ADMISSION DATE: 03/28/2017 DAYS ADMITTED: LOS: 28 days Todays Date: 04/25/2017 Plan Anticipated dc to home on 05/01 at amb level min A with wc. Pt will dc directly to [facility] assessment on 05/01 and travel a few times a week for therapy. Pt will receive PT/OT/ST. Interventions ? Support Support: Pt/Family Updates re:POC or DC Plan LIVIER spoke with pt's Dasia and she verbalized agreement with plan for dc on and transition to [facility] for evaluation on day of dc. Dasia explained she will arrive on rehab unit on 05/01 near 10:30am after dropping their girls off at school. ? Info or Referral Information or Referral to Community Resources: Lodging and/or Detention, General Community Resources (SW provided family with [employer] application, lodging resources and short lease apartment resources. SW also provided family with private duty caregiver list.) ? Discharge Planning Discharge Planning: Durable Medical Equipment and Supplies ([facility] PT/OT/ST) ? Medication Needs ? Financial ? Legal ? Other Disposition ? Expected Discharge Expected Discharge Date: 05/01/17 ? Discharge Disposition Lesa Henry LMSW *[phone] * Case Mgmt DC Plan - Lesa Henry - 04/24/2017 2:20 PM 3D MODELER Case Management Progress Note NAME:Thomas Osei : AGE: 41 y.o. ADMISSION DATE: 03/28/2017 DAYS ADMITTED: LOS: 27 days Todays Date: 04/24/2017 Plan Anticipated dc to home on 05/01 at amb level min A with wc. Pt will dc directly to [facility] assessment on 05/01 and travel a few times a week for therapy. Pt will receive PT/OT/ST. Interventions ? Support Support: Pt/Family Updates re:POC or DC Plan LIVIER met with pt and he shared he spoke with his Dasia and she will need to drop the kids off at school on 05/01 prior to picking him up and taking him to [facility], however they are in agreement with dcing on 05/01 directly to [facility]. Pt shared they plan to get a hotel room on 05/01 to go to therapy the following day. LIVIER met with pt and [facility] liaison Brock and she will clarify with their staff pt can arrive later then originally planned as will likely not arrive on unit until 10:30 or 11am after dropping the kids at school. Brock stated they will try to do what they can to accommodate pt and family needs due to the long distance they are traveling. SW will f/u with pt and pt's Dasia once start time determined at [facility]. Pt scheduled for neuropsych follow up with Dr. Mccloud. ? Info or Referral Information or Referral to Community Resources: Lodging and/or Detention, General Community Resources (SW provided family with [employer] application, lodging resources and short lease apartment resources. SW also provided family with private duty caregiver list.) ? Discharge Planning Discharge Planning: Durable Medical Equipment and Supplies ([facility] PT/OT/ST) ? Medication Needs ? Financial ? Legal ? Other Disposition ? Expected Discharge Expected Discharge Date: 05/02/17 ? Discharge Disposition Lesa Henry [facility] *[phone] * Rehab Team Conference - Kortney Gonsalves - 04/23/2017 10:12 AM 3D MODELER Formatting of this note may be different from the original. Team Conference Note Date of Admission: 03/28/2017 Date of Team Conference: 04/23/2017 Thomas Osei is a 41 y.o. male. : 1975 Team Conference Attendees:Geovanny Holloway MD, Attending Physician; Grayson Meyers MD Resident Physician; Alpa Danielle MD, Resident Physician; Lesa Henry [facility], Social Work; Cornelius Fragoso RNfire lieutenant marine; Kortney MENG/Marilyn LE, Forester Aide; Jazz Richmond RN, Nurse Ticketing Agent; Sindy Mccloud PhD, ABPP, Neuropsychology; Julia Chakraborty PhD, Post Doctoral Fellow, Neuropsychology; Oly Rodriguez PharmD, Pharmacy;Theodora Gabriel RD LD, Dietary ; Asha Garcia NURSING CARE PARTNER, Speech Therapy; Danielle Whitehead OTR, Occupational Therapy; Kirstin Baker DPT, Physical Therapy; Dunia Meraz RN, Nursing Medical Update: Dx: R MCA stroke Deficits: Left hemiplegia, Left neglect, Left facial droop, spasticity, cognitive impairment - Stroke: Unsure of cause. Cont ASA, atorvastatin, fluoxetine - Spasticity/spasms/neuropathic pain: baclofen 20mg TID, gabapentin 300mg qhs. D /c robaxin - UTI: Completed Abx 04/04 - Urinary retention: tapered off doxazosin, no signs of retention - Hyponatremia: tapered off salt tabs - Wearing hand splint at night Team Goal: Patient will perform: household mobility, at wheelchair level, Minimum assistance, With caregiver assistance Pt will perform basic care and transfer with: Stand by assistance, Progressing Discharge Planning Discharge Date: 05/01/17 Pt will begin [facility] on 05/01/17 a few times a week. will provide consistent supervision to pt at home. Type of Residence: Home, independent Living Arrangements: Spouse/significant other, Children (Pt lives with marley Gonzalez and their 2 dgts both 9.) Bathroom Shower / Tub: Tub/Shower Unit, Walk-in Shower (Pt will use tub/shower as walk in shower is very small.) Bathroom Toilet: Standard Bathroom Accessibility: Accessible via Walker (Pt's weber bath with tub/shower is rw accessible, however master fiber optic technician bath is not rw accessible, however will need to use at night for toileting.) How many levels in the residence?: 2 (Pt has 2 steps to enter home and 1 step to master fiber optic technician. Pt would like to climb 12 steps to reach dgt's fiber optic technician with bannister half way and no rail further.) Can patient live on one level if needed?: No (Pt has 1 step to fiber optic technician.) Support Systems: Spouse/Partner ( Dasia is primary support and she reports she can take some time off and do some network director upon initial dc. 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 Malcolm Childers in [place], [place] . DME DME at home: None Home Health Receiving home health: No Plan Home with family assist and Day Program OT/PT/ST vs outpatient therapies if unable to secure housing in [facility] Neuropsych evaluation DME Manual wheelchair with cushion (eval completed), tub transfer bench, grab bars. Rehabilitation Plan Progress Upper body dressing progressing to SBA/Megan (varied consistency with task); demos good understanding of mally-dressing technique Improved visual scanning/attention to L side Stand pivot transfer with moderate assistance x1 Squat pivot transfer with standby assist x1 R biceps, adductors, internal rotation and grasp activation noted LLE muscle activation with closed chain and open chain activities Wheelchair propulsion is modified independent Continued family training for transfers/self-care tasks in standing, with pt progressing to Megan with caregiver assist Patient's spouse reporting ramp to be put in this week Improved ease with toileting/toilet transfers with use of BSC placed over existing toilet to increase height and provide armrest support Improved ability to attend to task with less distractibility Improved frequency of self correction on visual scanning tasks. Patient is beginning to self monitor and identify when he is losing focused attention. Completes assigned tasks from therapist: I.e. Downloading [employer] luz. Skin tear to left shoulder in healing stage Barriers/Concerns Moderate burden of care for ADLs and related transfers Impulsive in standing at times (i.e. Sits abruptly) Reports he will be alone at times while spouse is at work Continues to require assist for toileting, LE dressing tasks and tasks in standing Pt reports securing housing in [facility] is cost-prohibitive at this time Patient verbalizes awareness of his deficits. He exhibits difficulty the understanding of the full impact on return to work at this time Patient continues to display difficulty with simple sustained attention. Plan family training and car transfer, gait, reciprocal stairs for neuro re-ed with assist of 2, repeat sit to stands with forced LLE use, LLE forced use activities , wheelchair propulsion, standing balance, 4- point, tall kneeling, pivot transfers, pilates reformer Pt follows commands well with cues and extra time, pt needs safety cues due to impulsiveness however motiviated to be independent Speech therapy will continue to follow for Right Hemisphere Dysfunction Encourage attention/scanning to left side Proper positioning of LUE/LLE in chair/bed, please follow mally positioning sheet Encourage pt to perform dressing, grooming tasks Up to chair for 3/3 meals Encourage fluid intake Goals Speech Care Home Goals Will improve attention skills necessary for safety in the home with: Minimal to Moderate assist Will improve skills necessary for KENNY's and safety in the home with: Minimal to Moderate assist Weekly Goals Weekly Bed Mobility Goals: Patient will perform sit to supine with, Patient will perform supine to sit with Patient will perform sit to supine with: Minimum assistance, Achieved, Modified independent Patient will perform supine to sit with: Minimum assistance, Achieved, Modified independent Weekly Transfer Goals: Patient will complete sit to stand transfer with, Patient will complete stand to sit transfer with, Patient will complete stand pivot transfer with Patient will complete sit to stand transfer with: Minimum assistance, Achieved, Stand by assistance Patient will complete stand to sit transfer with: Minimum assistance, Achieved, Stand by assistance Patient will complete stand pivot transfer with: Minimum assistance, Progressing Weekly Ambulation/Stairs Goals: Patient will ambulate, Patient will ascend/ descend Patient will ambulate: 50 feet, Maximum assistance, Achieved, Moderate assistance Patient will ascend/descend: 2 stairs, Moderate assistance, No rail, Progressing Patient will propel manual wheelchair on level surfaces with: Minimum assistance , Achieved, Modified Williams Weekly Goals ADL Goals: Dressing UE, Dressing LE, Grooming, Eating Patient Will Perform Eating: w/ Stand By Assist, Met, Modified Williams Patient Will Perform UE Dressing: w/ Minimum Assist, Met, Modified Independent Patient Will Perform LE Dressing: w/ Maximum Assist, Met, w/ Minimum Assist Patient Will Perform Grooming: Met, in Chair, w/ Stand By Assist Pt will demonstrate simple kitchen management with ___ at ___: Minimum assistance, Progressing Pt will scan environment: 100% of the time, With minimal cues, Progressing Speech Short Term Goals Will demonstrate higher level reasoning skills for return home with: Progressing Will demonstrate mathematical problem solving skills for ADLs with: Progressing Will demonstrate visual scanning skills with: Progressing Will demonstrate functional reading skills for ADLs with: Progressing Will demonstrate memory for safety sequences for transfer and ADLs with: Progressing Will demonstrate sustained attention for task performance with: Progressing Nursing Short Term Goals Bladder Management: Yes Patient / Caregiver will verbalize signs & symptoms of urinary tract infection and what action to do with: Minimum verbal cues, Progressing Patient will follow time voiding program independently with: Progressing, No verbal cues Bowel Management: Yes Will be able to verbalize dietary regimen that will regulate bowel function with : Minimum verbal cues, Progressing Medication Management: Yes Will verbalize reason for medication with: Progressing Skin Integrity: Yes Will be free of Stage 1 Pressure Ulcers by performing positioning techniques with: Minimum verbal cues, Progressing Will verbalize optimal skin care routine with: Minimum verbal cues, Progressing Will verbalize 2-3 risk factors for pressure ulcers with: Minimum verbal / written cues, Progressing Pain Management: Yes Will verbalize pain level at or between ____ at rest: Progressing Safety: Yes Will demonstrate understanding of mobility precautions with: Minimum verbal cues , Progressing Will demonstrate understanding of own limitations with: Minimum verbal cues, Progressing Disease Knowledge: Yes Will verbalize risk factors of disease process with: Progressing Nutrition: Yes Patient / Caregiver will be able to verbalize knowledge of proper nutrition to prevent fluid overload with: Progressing Functional Williams Measures Eating FIM: 5 - Set up with containers Grooming FIM: 6 - Modified independence - Extra Time (3 times normal) Bathing FIM: 4 - Minimal contact assistance, patient performs 75% or more of grooming/bathing/dressing/toileting tasks Dressing - Upper Body FIM: 4 - Minimal contact assistance, patient performs 75% or more of grooming/bathing/dressing/toileting tasks Dressing - Lower Body FIM: 4 - Minimal contact assistance, patient performs 75% or more of grooming/bathing/dressing/toileting tasks Toileting FIM: 3 - Moderate assistance, patient performs 50-74% or more of grooming/bathing/dressing/toileting tasks Bladder FIM: 5 - Emptying device by staff Bowel FIM: 6 - No bowel movement, medication Transfers FIM: 4 - Minimal assistance, patient performs 75% or more of transferring tasks Toilet Transfers FIM: 3 - Moderate assistance, patient performs 50-74% of transferring tasks (lifting required) Shower Transfers FIM: 3 - Moderate assistance, patient performs 50-74% of transferring tasks (lifting required) Gait: 2 - Maximal assistance, patient expends 25-49% effort, requires one person assist, greater than or equal to 50-149 feet Wheelchair FIM: 6 - Modified independence - Wheelchair, greater than or equal to 150 feet Stairs FIM: 3 - Moderate assitance, patient expends 50-74% effort, greater than or equal to 12 stairs Comprehension FIM: 5 - Standby prompting. Understands abstract and/or basic information greater than 90% of the time, prompting less than 10% Expression FIM: 5 - Standy prompting - Able to express abstract and/or basic information >90% of the time, prompting <10% Social Interaction FIM: 6 - Modified independence - Able to interact in most situations and no prompting required Problem Solving FIM: 5 - Standby prompting - Able to recognize problems, make appropriate decisions, initiates and carries out a sequence of steps to solve routine problems >90% of the time, prompting <10% Memory FIM: 5 - Supervision - Able to recognize people frequently encountered, remembers daily routines, responds to requests of others requiring prompting only under stressful or unfamiliar conditions, no more than 10% of time Associated attestation - Geovanny Holloway MD - 04/23/2017 8:38 PM 3D MODELER I personally led the interdisciplinary team meeting and concur with all decisions made by the interdisciplinary team. Geovanny Holloway MD * Case Mgmt DC Plan - Lesa Henry - 04/19/2017 1:22 PM 3D MODELER Case Management Progress Note NAME:Thomas Osei : AGE: 41 y.o. ADMISSION DATE: 03/28/2017 DAYS ADMITTED: LOS: 22 days Todays Date: 04/19/2017 Plan Anticipated dc to home on 04/26 at [facility] level min A with wc. Pt will dc home and travel to [facility] a few times a week for therapy with start date of 05/01/17. Pt will receive PT/OT/St and neuropsych. Interventions ? Support Support: Pt/Family Updates re:POC or DC Plan ? Info or Referral Information or Referral to Community Resources: Lodging and/or Detention, General Community Resources (LIVIER provided family with [employer] application, lodging resources and short lease apartment resources. LIVIER also provided family with private duty caregiver list.) ? Discharge Planning Discharge Planning: Durable Medical Equipment and Supplies ([facility] PT/OT/ST) LIVIER faxed updated clinical to [facility] F:[phone] per request. Pt will begin on 05/01/17. ? Medication Needs ? Financial ? Legal ? Other Disposition ? Expected Discharge Expected Discharge Date: 04/26/17 ? Discharge Disposition Lesa Henry LMSW *[phone] * Case Mgmt DC Plan - Cornelius Fragoso RN - 04/18/2017 1:23 PM 3D MODELER Case Management Progress Note NAME:Thomas Osei : AGE: 41 y.o. ADMISSION DATE: 03/28/2017 DAYS ADMITTED: LOS: 21 days Todays Date: 04/18/2017 Plan DME planning Interventions ? Support Support: Pt/Family Updates re:POC or DC Plan NCM spoke with patient about Discharge Equipment needs NCM provided patient with [facility] for Access, , form to get Equipment before discharge Pt will need TTB and GB for d/c. NCm will continue to assess and follow for any new Equipment needs before discharge Cornelius Fragoso RN- [phone] ? Info or Referral Information or Referral to Community Resources: Lodging and/or Detention, General Community Resources (SW provided family with [employer] application, lodging resources and short lease apartment resources. SW also provided family with private duty caregiver list.) ? Discharge Planning Discharge Planning: Durable Medical Equipment and Supplies ([facility] PT/OT/ST) ? Medication Needs ? Financial ? Legal ? Other Disposition ? Discharge Preparation When ready for discharge, who will be responsible for transporting?: Type of Residence: Private residence Patient expects to be discharged to: Private residence Was the patient receiving home care services?: No ? Expected Discharge Expected Discharge Date: 04/26/17 ? Discharge Disposition ? Next Level Care * Case Mgmt DC Plan - Lesa Henry - 04/18/2017 1:11 PM 3D MODELER Case Management Progress Note NAME:Thomas Osei : AGE: 41 y.o. ADMISSION DATE: 03/28/2017 DAYS ADMITTED: LOS: 21 days Todays Date: 04/18/2017 Plan Anticipated dc to home on 04/26 at [facility] level min A with wc. Pt and are considering dcing home and traveling back and forth for [facility] therapy in [place]. Pt recommended for PT/OT/ST and neuropsych(will need to f/u with Dr. Mccloud if not going to [facility]). Interventions ? Support Support: Pt/Family Updates re:POC or DC Plan SW returned Dasia's call to provide team conference updates. Dasia explained she is working on obtaining tub transfer bench and grab bars for the shower. SW provided recommendation to check with [employer] on whether they may assist with donating some lumbar for the ramp. Dasia explained she has friends to help build this. Dasia shared she and her friend who is a NURSING CARE PARTNER visited [place] outpt yesterday and were impressed, but still feel [facility] would be more beneficial 3 days a week. Dasia inquired if pt could go to [place] following [facility]. SW educated it is likely pt can as long as he still have therapy days available, however SW educated they would contact [facility] to clarify. SW will f/u with once information is obtained. ? Info or Referral Information or Referral to Community Resources: Lodging and/or Detention, General Community Resources (SW provided family with [employer] application, lodging resources and short lease apartment resources. SW also provided family with private duty caregiver list.) ? Discharge Planning Discharge Planning: Durable Medical Equipment and Supplies ([facility] PT/OT/ST) SW spoke with Brock of [facility] and inquired about pt transitioning to [place] following their services. Brock shared pt has a combined 90 visits for PT/OT/ST and they will need to check with insurance to see how they will bill and how many visits they will use with visiting 3 days a week. Brock verbalized she would have their insurance individual double check tomorrow when she is back in the office and Brock stated she will call pt's Dasia to update. ? Medication Needs ? Financial ? Legal ? Other Disposition ? Expected Discharge Expected Discharge Date: 04/26/17 ? Discharge Disposition Lesa Henry LMSW *[phone] * Case Mgmt DC Plan - Lesa Henry - 04/17/2017 3:26 PM 3D MODELER Case Management Progress Note NAME:Thomas Osei : AGE: 41 y.o. ADMISSION DATE: 03/28/2017 DAYS ADMITTED: LOS: 20 days Todays Date: 04/17/2017 Plan Anticipated dc to home on 04/26 at [facility] level min A with wc. Pt and are considering dcing home and traveling back and forth for [facility] therapy in [place]. Pt recommended for PT/OT/ST and neuropsych(will need to f/u with Dr. Mccloud if not going to [facility]). Interventions ? Support Support: Pt/Family Updates re:POC or DC Plan SW met with pt to provide team conference updates. Pt verbalized his is busy touring therapy locations today and SW will f/u will her tomorrow to give updates. Pt explained a ramp is getting installed and his is purchasing the tub transfer bench and grab bars. SW also assisted pt with questions related to [employer] Disability. ? Info or Referral Information or Referral to Community Resources: Lodging and/or Detention, General Community Resources (SW provided family with [employer] application, lodging resources and short lease apartment resources. SW also provided family with private duty caregiver list.) ? Discharge Planning Discharge Planning: Durable Medical Equipment and Supplies ([facility] PT/OT/ST) ? Medication Needs ? Financial SW contacted [employer] [phone] to check on whether they needed further documentation for pt's disability. Sw provided Medical records fax number, no other needs were identified. ? Legal ? Other Disposition ? Expected Discharge Expected Discharge Date: 04/26/17 ? Discharge Disposition Lesa Henry [facility] *[phone] * Rehab Team Conference - Kortney Gonsalves - 04/16/2017 10:10 AM 3D MODELER Formatting of this note may be different from the original. Team Conference Note Date of Admission: 03/28/2017 Date of Team Conference: 04/16/2017 Thomas Osei is a 41 y.o. male. : 1975 Team Conference Attendees: Kortney Lennon MD, Attending Physician; Attending Physician; Grayson Meyers MD Resident Physician; Alpa Danielle MD, Resident Physician; Lesa Henry [facility], Social Work; Cornelius Fragoso RNfire lieutenant marine; Kortney MENG/Marilyn LE, Forester Aide;Kailyn Jama RN, Clinical Television Repair Teacher; Jazz Richmond RN, Nurse Ticketing Agent; Karolina Boss RN, Rehab Top Precipitator Operator Helper; Sindy Mccloud PhD, ABPP, Neuropsychology; Julia Chakraborty PhD , Post Doctoral Fellow, Neuropsychology; Sy Denny PhD, Neuropsychology Fellow ; Oly Rodriguez PharmD, Pharmacy Joyce Trivedi NURSING CARE PARTNER, Speech Therapy; Danielle Whitehead OTR, Occupational Therapy; Kirstin Baker DPT, Physical Therapy; Akua Medrano RN, Nursing Medical Update: Dx: R MCA stroke Deficits: Left hemiplegia, Left neglect, Left facial droop, ?spasticity, cognitive impairment - UTI: Completed Abx 04/04 - Urinary retention: tapered off doxazosin, no signs of retention - Hyponatremia: tapered off salt tabs - h/o back pain - Wearing hand splint at night Team Goal: Patient will perform: household mobility, at wheelchair level, Minimum assistance, With caregiver assistance Pt will perform basic care and transfer with: Stand by assistance, Progressing Discharge Planning Discharge Date: 04/26/17 Pt and family are considering [facility] and will travel back and forth from [place] vs outpt therapy at [facility] in [place] closer to their home. plans to provide consistent supervision to pt. Type of Residence: Home, independent Living Arrangements: Spouse/significant other, Children (Pt lives with marley Gonzalez and their 2 dgts both 9.) Bathroom Shower / Tub: Tub/Shower Unit, Walk-in Shower (Pt will use tub/shower as walk in shower is very small.) Bathroom Toilet: Standard Bathroom Accessibility: Accessible via Walker (Pt's weber bath with tub/shower is rw accessible, however master fiber optic technician bath is not rw accessible, however will need to use at night for toileting.) How many levels in the residence?: 2 (Pt has 2 steps to enter home and 1 step to master fiber optic technician. Pt would like to climb 12 steps to reach dgt's fiber optic technician with bannister half way and no rail further.) Can patient live on one level if needed?: No (Pt has 1 step to fiber optic technician.) Support Systems: Spouse/Partner (Marley Gonzalez is primary support and she reports she can take some time off and do some network director upon initial dc. 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 Malcolm Childers in [place], [place] . DME DME at home: None Home Health Receiving home health: No Plan Home with family assist and Day Program OT/PT/ST vs outpatient therapies if unable to secure housing in area Outpatient Neuropsychology assessment DME Manual wheelchair with cushion (scheduling a wheelchair eval), tub transfer bench, grab bars. Rehabilitation Plan Progress Upper body dressing consistently stand by assist Improved visual scanning/attention to L side Stand pivot transfer with maximal assistance x1 Squat pivot transfer with min assist x1 R biceps activation noted following e-stim treatment, pt reports shoulder internal rotation activation LLE muscle activation consistently noted during pilates exercises Improved LLE weightbearing during gait activities Able to propel manual wheelchair standby assist 150 feet Have initiated family training for transfers Patient's spouse reporting that they are getting a ramp for the house Improved frequency of self correction on visual scanning tasks. Patient is beginning to self monitor and identify when he is losing focused attention. Completes assigned tasks from therapist. Patient verbalizes awareness of his deficits. Barriers/Concerns Distractible requiring consistent redirection to task High burden of care for ADLs and related transfers Impulsive in standing at times (i.e. Sits abruptly) Decrease safety awareness with squat pivot transfers due to L inattention 2 person assist to complete stairs Patient exhibits difficulty the understanding of the full impact on return to work at this time Patient continues to display difficulty with simple sustained attention. Plan gait with assist of 2, stairs with assist of 2, repeat sit to stands with forced LLE use, LLE forced use activities, wheelchair propulsion, standing balance, 4- point, tall kneeling, pivot transfers, pilates reformer, vector Speech therapy will continue to follow for Right Hemisphere Dysfunction Scheduled tylenol. Dsg to LUE intact, prafo boot to LLE and a spllint to LUE, Q 2hr turn. . Encourage attention/scanning to left side Proper positioning of LUE/LLE in chair/bed, please follow mally positioning sheet Encourage pt to perform dressing, grooming tasks Encourage patient to perform perihygiene with toileting Up to chair for 3/3 meals Monitor mood/coping Goals Speech Campaign Worker Goals Will improve attention skills necessary for safety in the home with: Minimal to Moderate assist Will improve skills necessary for KENNY's and safety in the home with: Minimal to Moderate assist Weekly Goals Weekly Bed Mobility Goals: Patient will perform sit to supine with, Patient will perform supine to sit with Patient will perform sit to supine with: Minimum assistance, Progressing Patient will perform supine to sit with: Minimum assistance, Progressing Weekly Transfer Goals: Patient will complete sit to stand transfer with, Patient will complete stand to sit transfer with, Patient will complete stand pivot transfer with Patient will complete sit to stand transfer with: Minimum assistance, Progressing Patient will complete stand to sit transfer with: Minimum assistance, Progressing Patient will complete stand pivot transfer with: Minimum assistance, Progressing Weekly Ambulation/Stairs Goals: Patient will ambulate, Patient will ascend/ descend Patient will ambulate: 50 feet, Maximum assistance, Progressing Patient will ascend/descend: 2 stairs, Moderate assistance, No rail, Progressing Patient will propel manual wheelchair on level surfaces with: Minimum assistance , Achieved, Modified Williams Weekly Goals ADL Goals: Dressing UE, Dressing LE, Grooming, Eating Patient Will Perform Eating: w/ Stand By Assist, Met, Modified Williams Patient Will Perform UE Dressing: w/ Minimum Assist, Met, Modified Independent Patient Will Perform LE Dressing: w/ Maximum Assist, Met, w/ Minimum Assist Patient Will Perform Grooming: w/ Stand By Assist, in Chair, Not Met Pt will demonstrate simple kitchen management with ___ at ___: Minimum assistance, Progressing Pt will scan environment: 100% of the time, With minimal cues, Progressing Speech Short Term Goals Will demonstrate higher level reasoning skills for return home with: Progressing Will demonstrate mathematical problem solving skills for ADLs with: Progressing Will demonstrate visual scanning skills with: Progressing Will demonstrate functional reading skills for ADLs with: Progressing Will demonstrate memory for safety sequences for transfer and ADLs with: Progressing Will demonstrate sustained attention for task performance with: Progressing Nursing Short Term Goals Bladder Management: Yes Patient / Caregiver will verbalize signs & symptoms of urinary tract infection and what action to do with: Minimum verbal cues, Progressing Patient will follow time voiding program independently with: Minimum verbal cues , Progressing Bowel Management: Yes Will be able to verbalize dietary regimen that will regulate bowel function with : Minimum verbal cues, Progressing Medication Management: Yes Will verbalize reason for medication with: Minimum verbal / written cues, Progressing Skin Integrity: Yes Will be free of Stage 1 Pressure Ulcers by performing positioning techniques with: Minimum verbal cues, Progressing Will verbalize optimal skin care routine with: Minimum verbal cues, Progressing Will verbalize 2-3 risk factors for pressure ulcers with: Minimum verbal / written cues, Progressing Pain Management: Yes Will verbalize pain level at or between ____ at rest: 1-3, Progressing Safety: Yes Will demonstrate understanding of mobility precautions with: Minimum verbal cues , Progressing Will demonstrate understanding of own limitations with: Minimum verbal cues, Progressing Disease Knowledge: Yes Will verbalize risk factors of disease process with: Minimum verbal cues, Progressing Nutrition: Yes Patient / Caregiver will be able to verbalize knowledge of proper nutrition to prevent fluid overload with: Progressing Functional Williams Measures Eating FIM: 5 - Set up with containers Grooming FIM: 3 - Moderate assistance, patient performs 50-74% or more of grooming/bathing/dressing/toileting tasks Bathing FIM: 3 - Moderate assistance, patient performs 50-74% or more of grooming/bathing/dressing/toileting tasks Dressing - Upper Body FIM: 5 - Set up Dressing - Lower Body FIM: 3 - Moderate assistance, patient performs 50-74% or more of grooming/bathing/dressing/toileting tasks Toileting FIM: 2 - Maximal assistance, patient performs 25-49% of grooming/ bathing/dressing/toileting tasks Bladder FIM: 5 - Emptying device by staff Bowel FIM: 6 - Modified independence - Medication Transfers FIM: 2 - Maximal assistance, patient performs 25-49% of transferring tasks Toilet Transfers FIM: 2 - Maximal assistance, patient performs 25-49% of transferring tasks Shower Transfers FIM: 2 - Maximal assistance, patient performs 25-49% of transferring tasks Gait: 1 - Toal assistance, two or more people, < 50 feet Wheelchair FIM: 5 - Supervision, greater than or equal to 150 feet Stairs FIM: 1 - Total assistance, requires two or more people Comprehension FIM: 5 - Standby prompting. Understands abstract and/or basic information greater than 90% of the time, prompting less than 10% Expression FIM: 5 - Standy prompting - Able to express abstract and/or basic information >90% of the time, prompting <10% Social Interaction FIM: 5 - Supervision required - Able to interact appropriately >90% of the time, prompting <10% Problem Solving FIM: 4 - Minimal prompting - Able to solve routine problems 75- 90% Memory FIM: 4 - Minimal prompting - Able to recognize people frequently encountered, remembers daily routines, responds to requests of others 50-74% of the time, needs promting less than half of the time Associated attestation - Kortney Lennon MD - 04/16/2017 3:07 PM 3D MODELER I personally led the interdisciplinary team meeting and concur with all decisions made by the interdisciplinary team. Kortney Lennon MD * Case Mgmt DC Plan - Lesa Henry - 04/15/2017 1:20 PM 3D MODELER Case Management Progress Note NAME:Thomas Osei : AGE: 41 y.o. ADMISSION DATE: 03/28/2017 DAYS ADMITTED: LOS: 18 days Todays Date: 04/15/2017 Plan Anticipated dc to home on 04/26 at [facility] level min A with wc. Pt and are considering dcing home and traveling back and forth for [facility] vs [facility] outpt therapy in [place]. Interventions ? Support Support: Pt/Family Updates re:POC or DC Plan LIVIER met with pt's Dasia and provided her with only resource LIVIER was able to find in [facility] for financial support. Dasia verbalized she was aware of the resource LIVIER provided, however knows they are not eligible. Dasia explained they plan to visit [facility] outpt therapy in [place] to see whether it compares at all to [facility] and if not they will make it work to travel back and forth to [facility] a few times a week. 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 Dasia verbalized now that she will network director she wouldn't need to travel as they live in [place]. Dasia verbalized no further concerns at this time. LIVIER offered support and reminded her of contact information for LIVIER. ? Info or Referral Information or Referral to Community Resources: Lodging and/or Detention, General Community Resources (SW provided family with [facility] application, lodging resources and short lease apartment resources. SW also provided family with private duty caregiver list.) ? Discharge Planning Discharge Planning: Durable Medical Equipment and Supplies ([facility] PT/OT/ST) ? Medication Needs ? Financial ? Legal ? Other Disposition ? Expected Discharge Expected Discharge Date: 04/26/17 ? Discharge Disposition Lesa Carl [facility] *[phone] * Case Mgmt DC Plan - Lesa Henry - 04/10/2017 11:08 AM 3D MODELER Case Management Progress Note NAME:Thomas Osei : AGE: 41 y.o. ADMISSION DATE: 03/28/2017 DAYS ADMITTED: LOS: 13 days Todays Date: 04/10/2017 Plan Anticipated dc to home or potential friend's home in area on 04/26 at amb level min A with wc. Pt and are considering speaking with a friend regarding staying in [facility] or finding lodging to attend [facility]. Interventions ? Support Support: Pt/Family Updates re:POC or DC Plan LIVIER met with pt and pt's Dasia to provide team conference updates. Dasia and pt verbalized understanding of need for assistance at home due to pt's impulsivity and physical assistance. Dasia explained she does not have any support and she is unsure what they are going to do. Dasia verbalized she wants him to go to [facility], however there is no one in the area who would be able to get him up and around and transport him to [facility]. Dasia also expressed they do not have a place to stay. LIVIER inquired into whether they could potentially hire someone to assist or if they may want to speak with financial counseling to check on medicaid eligibility. Dasia explained they would not qualify for medicaid, however verbalized interest in private duty caregiver list. SW also offered and supplied with [facility] [place] [facility], as well as, community lodging and [facility] application(pt requires local address for application). Dasia also asked about financial assistance and LIVIER suggested she call the phone number on the medical bill and explain they are having a financial hardship and they can assist with a payment plan. ? Info or Referral Information or Referral to Community Resources: Lodging and/or Detention, General Community Resources (SW provided family with [employer] application, lodging resources and short lease apartment resources. SW also provided family with private duty caregiver list.) ? Discharge Planning Discharge Planning: Durable Medical Equipment and Supplies ([facility] PT/OT/ST) ? Medication Needs ? Financial ? Legal ? Other Disposition ? Expected Discharge Expected Discharge Date: 04/26/17 ? Discharge Disposition Lesa Henry LMSW *[phone] * Rehab Team Conference - Geovanny Holloway MD - 04/09/2017 10:07 AM 3D MODELER Formatting of this note may be different from the original. I personally led the interdisciplinary team meeting and concur with all decisions made by the interdisciplinary team. Geovanny Holloway MD Team Conference Note Date of Admission: 03/28/2017 Date of Team Conference: 04/09/2017 Thomas Osei is a 41 y.o. male. : 1975 Team Conference Attendees: Geovanny Holloway MD, Attending Physician; Grayson Meyers MD Resident Physician; Alpa Danielle MD, Resident Physician; Lesa Henry [facility], Social Work; Cornelius Fragoso RNfire lieutenant marine; Kortney MENG/Marilyn LE, Forester Aide; Theodora Gabriel RD LD, Dietary; Jazz Richmond RN, Nurse Ticketing Agent; Karolina Boss RN, Rehab Top Precipitator Operator Helper;Sindy Mccloud PhD, ABPP, Neuropsychology; Julia Chakraborty PhD, Post Doctoral Fellow, Neuropsychology ; Joyce Trivedi NURSING CARE PARTNER, Speech Therapy; Danielle Whitehead OTR, Occupational Therapy; Kirstin Baker DPT, Physical Therapy; Gianfranco Jones RN, Nursing Medical Update: Dx: R MCA stroke Deficits: Left hemiplegia, Left neglect, Left facial droop, ?spasticity, cognitive impairment - UTI: complicated, on cipro 500mg BID, cxs pending - Urinary retention: likely d/t stroke and UTI, on cipro and doxazosin - Hyponatremia: NaCl 17meq BID - h/o back pain - Wearing hand splint at night NeuroPsych: Patient did not endorse mood symptoms. Team Goal: Patient will perform: household mobility, Minimum assistance, at wheelchair level, With caregiver assistance, Progressing Pt will perform basic care and transfer with: Stand by assistance Discharge Planning Discharge Date: 04/26/17 Pt and family are considering [facility] if they are able to identify someone to stay with in [place] area. Type of Residence: Home, independent Living Arrangements: Spouse/significant other, Children (Pt lives with marley Gonzalez and their 2 dgts both 9.) Bathroom Shower / Tub: Tub/Shower Unit, Walk-in Shower (Pt will use tub/shower as walk in shower is very small.) Bathroom Toilet: Standard Bathroom Accessibility: Accessible via Walker (Pt's weber bath with tub/shower is rw accessible, however master fiber optic technician bath is not rw accessible, however will need to use at night for toileting.) How many levels in the residence?: 2 (Pt has 2 steps to enter home and 1 step to master fiber optic technician. Pt would like to climb 12 steps to reach dgt's fiber optic technician with bannister half way and no rail further.) Can patient live on one level if needed?: No (Pt has 1 step to fiber optic technician.) Support Systems: Spouse/Partner ( Dasia is primary support and she reports she can take some time off and do some network director upon initial dc. 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 Malcolm Childers in [place], [place] . DME DME at home: None Home Health Receiving home health: No Plan Home with family assist and Day Program OT/PT/ST DME Manual wheelchair with cushion, Shower chair, TBD Rehabilitation Plan Progress Upper body dressing consistently minimal assistance Improved visual scanning/attention to L side Stand pivot transfer with maximal assistance x1 LLE muscle activation consistently noted during pilates exercises (most prominently in hamstrings, glutes, hip adductors) Improved LLE weightbearing during gait activities Able to propel manual wheelchair 150 feet with minimal assist Improved visual scanning for reading and environmental awareness. Mild improvement with eye contact during conversation. Barriers/Concerns Distractible requiring consistent redirection to task Unable to elicit active movement in LUE - c/o pain during external rotation High burden of care for ADLs and related transfers Impulsive in standing at times (i.e. Sits abruptly) L-sided in attention causes patient to run wheelchair into ji/door frames Have been unable to progress to trial of stairs and has two to enter his home Limited awareness of deficits. Staff can assist by continuing to provide education re: RHD. Plan repeat sit to stands with forced LLE use, LLE forced use activities, wheelchair propulsion, standing balance, 4- point, tall kneeling, pivot transfers, pilates reformer, vector Speech therapy will continue to follow for Right Hemisphere Dysfunction C/o cramps /spasms on the LLE taking PRN and scheduled muscle relaxants . Encourage attention/scanning to left side Proper positioning of LUE/LLE in chair/bed, please follow mally positioning sheet Up to chair for 3/3 meals Hand splint at night. Goals Speech Campaign Worker Goals Will improve attention skills necessary for safety in the home with: Minimal to Moderate assist Will improve skills necessary for KENNY's and safety in the home with: Minimal to Moderate assist Weekly Goals Weekly Bed Mobility Goals: Patient will perform sit to supine with, Patient will perform supine to sit with Patient will perform sit to supine with: Moderate assistance, Achieved (new goal , min assist) Patient will perform supine to sit with: Moderate assistance, Achieved (new goal , min assist) Weekly Transfer Goals: Patient will complete sit to stand transfer with, Patient will complete stand to sit transfer with, Patient will complete stand pivot transfer with Patient will complete sit to stand transfer with: Moderate assistance, Achieved (new goal, min assist) Patient will complete stand to sit transfer with: Moderate assistance, Achieved (new goal, min assist) Patient will complete stand pivot transfer with: Moderate assistance, Achieved ( though inconsistently, new goal, min assist) Weekly Ambulation/Stairs Goals: Patient will ambulate, Patient will ascend/ descend Patient will ambulate: 50 feet, Maximum assistance, Progressing Patient will ascend/descend: 2 stairs, Moderate assistance, No rail, Progressing Patient will propel manual wheelchair on level surfaces with: Minimum assistance Weekly Goals ADL Goals: Dressing UE, Dressing LE, Grooming, Eating Patient Will Perform Eating: w/ Stand By Assist Patient Will Perform UE Dressing: w/ Minimum Assist Patient Will Perform LE Dressing: w/ Maximum Assist Patient Will Perform Grooming: w/ Stand By Assist, in Chair Pt will demonstrate simple kitchen management with ___ at ___: Minimum assistance Pt will scan environment: 100% of the time, With minimal cues Speech Short Term Goals Will demonstrate higher level reasoning skills for return home with: Progressing Will demonstrate mathematical problem solving skills for ADLs with: Progressing Will demonstrate visual scanning skills with: Progressing Will demonstrate functional reading skills for ADLs with: Progressing Will demonstrate memory for safety sequences for transfer and ADLs with: Progressing Will demonstrate sustained attention for task performance with: Progressing Nursing Short Term Goals Bladder Management: Yes Patient / Caregiver will verbalize signs & symptoms of urinary tract infection and what action to do with: No verbal cues, Progressing Patient will follow time voiding program independently with: No verbal cues, Progressing Bowel Management: Yes Will be able to verbalize dietary regimen that will regulate bowel function with : Minimum verbal cues, Progressing Medication Management: Yes Will verbalize reason for medication with: Minimum verbal / written cues, Progressing Skin Integrity: Yes Will be free of Stage 1 Pressure Ulcers by performing positioning techniques with: Minimum verbal cues, Progressing Will verbalize optimal skin care routine with: Minimum verbal cues, Progressing Will verbalize 2-3 risk factors for pressure ulcers with: Minimum verbal / written cues, Progressing Pain Management: Yes Will verbalize pain level at or between ____ at rest: Not progressing (chronic back pain per pt) Safety: Yes Will demonstrate understanding of mobility precautions with: Minimum verbal cues , Progressing Will demonstrate understanding of own limitations with: Minimum verbal cues, Progressing Disease Knowledge: Yes Will verbalize risk factors of disease process with: Minimum verbal cues, Progressing Nutrition: Yes Patient / Caregiver will be able to verbalize knowledge of proper nutrition to prevent fluid overload with: No verbal cues, Progressing Functional Williams Measures Eating FIM: 5 - Supervision Grooming FIM: 5 - Verbal cues or coaxing Bathing FIM: 3 - Moderate assistance, patient performs 50-74% or more of grooming/bathing/dressing/toileting tasks Dressing - Upper Body FIM: 3 - Moderate assistance, patient performs 50-74% or more of grooming/bathing/dressing/toileting tasks Dressing - Lower Body FIM: 3 - Moderate assistance, patient performs 50-74% or more of grooming/bathing/dressing/toileting tasks Toileting FIM: 1 - Total assistance, patient performs less than 25% of grooming/ bathing/dressing/toileting tasks Bladder FIM: 5 - Emptying device by staff Bowel FIM: 6 - Modified independence - Medication Transfers FIM: 2 - Maximal assistance, lifting assistance to initiate and complete transfer Toilet Transfers FIM: 1 - Total assistance, two or more people Shower Transfers FIM: 1 - Total assistance, two or more people Gait: 0 - Activity did not occur - Other Wheelchair FIM: 4 - Minimal contact assistance, patient expends 75% or more effort, greater than or equal to 150 feet Stairs FIM: 0 - Activity did not occur - Unable due to motor control Comprehension FIM: 4 - Minimal prompting. Understands directions/conversation about basic daily needs 75-90% Expression FIM: 4 - Minimal prompting - Expresses directions/conversation about basic daily needs 75-90% Social Interaction FIM: 5 - Supervision required - Able to interact appropriately >90% of the time, prompting <10% Problem Solving FIM: 4 - Minimal prompting - Able to solve routine problems 75- 90% Memory FIM: 4 - Minimal prompting - Able to recognize people frequently encountered, remembers daily routines, responds to requests of others 50-74% of the time, needs promting less than half of the time * Case Mgmt DC Plan - Lesa Henry - 04/02/2017 3:12 PM 3D MODELER Case Management Progress Note NAME:Thomas Osei : AGE: 41 y.o. ADMISSION DATE: 03/28/2017 DAYS ADMITTED: LOS: 5 days Todays Date: 04/02/2017 Plan Anticipated dc to home or potential friend's home in area on 04/26 at amb level min A with least restrictive device vs wc. Pt and are considering speaking with a friend regarding staying in area to attend Ability . Interventions ? Support Support: Pt/Family Updates re:POC or DC Plan SW met with pt and pt's Dasia and 2 children to provide team conference updates. Pt verbalized he wants to go soon, however also verbalized understanding he requires for therapy to become more independent. verbalized agreement with plan and wants pt to be as independent as possible. SW discussed recommendation of [facility] [place] and pt and plan to check with family or friends in [place] area to see whether they can stay with them. Pt and agreed to SW sending referral and setting up visit wit Darrius FONSECA. and pt h ad no further questions at this time. ? Info or Referral ? Discharge Planning Discharge Planning: Durable Medical Equipment and Supplies (Darrius FONSECA PT/OT/ST) SW sent referral to [facility] [place] and liaison plans to meet with pt on 04/04 at 4pm. ? Medication Needs ? Financial ? Legal ? Other Disposition ? Expected Discharge Expected Discharge Date: 04/26/17 ? Discharge Disposition Lesa Henry [facility] [place] [facility] *[phone] * Rehab Team Conference - MajorLuisaah - 04/02/2017 9:04 AM 3D MODELER Formatting of this note may be different from the original. Team Conference Note Date of Admission: 03/28/2017 Date of Team Conference: 04/02/2017 Thomas Osei is a 41 y.o. male. : 1975 Team Conference Attendees: Maximo Collier MD, Attending Physician; Jomar Sargent MD Resident Physician; Lesa Henry [facility] [place], Social Work; Cornelius Fragoso RNfire lieutenant marine; Kortney MENG/Marilyn LE, Forester Aide; Theodora Gabriel RD LD, Dietary; Jazz Richmond RN, Nurse Ticketing Agent; Joyce Trivedi NURSING CARE PARTNER, Speech Therapy; Danielle Whitehead OTR, Occupational Therapy; Kirstin Baker DPT, Physical Therapy; Sophie Cazares, RN, Nursing Medical Update: Dx: R MCA stroke Deficits: Left hemiplegia, Left neglect, Left facial droop, ?spasticity, cognitive impairment - UTI: complicated, on cipro 500mg BID, cxs pending - Urinary retention: likely d/t stroke and UTI, on cipro and doxazosin - Hyponatremia: NaCl 17meq BID - h/o back pain Team Goal: Patient will perform: household mobility, at ambulation level, Minimum assistance Pt will perform basic care and transfer with: Stand by assistance Discharge Planning Discharge Date: 04/26/17 Type of Residence: Home, independent Living Arrangements: Spouse/significant other, Children (Pt lives with Dasia and their 2 dgts both 9.) Bathroom Shower / Tub: Tub/Shower Unit, Walk-in Shower (Pt will use tub/shower as walk in shower is very small.) Bathroom Toilet: Standard Bathroom Accessibility: Accessible via Walker (Pt's weber bath with tub/shower is rw accessible, however master fiber optic technician bath is not rw accessible, however will need to use at night for toileting.) How many levels in the residence?: 2 (Pt has 2 steps to enter home and 1 step to master fiber optic technician. Pt would like to climb 12 steps to reach dgt's fiber optic technician with bannister half way and no rail further.) Can patient live on one level if needed?: No (Pt has 1 step to fiber optic technician.) Support Systems: Spouse/Partner ( Dasia is primary support and she reports she can take some time off and do some network director upon initial dc. 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 Malcolm Childers in [place], [place] . DME DME at home: None Home Health Receiving home health: No Plan Home with family assist and Day Program/Outpatient PT/OT DME Shower chair, wheelchair TBD Rehabilitation Plan Progress Bathing has progressed from total to moderate assistance. Upper body dressing improved from maximal to moderate assistance. Squat pivot transfer max assist x 1, prior need for 2 people assist Progressing with all goals Barriers/Concerns Flaccid LUE/LLE and left sided inattention Frequent spasms in left LE, throughout entire extremity - pt states often prior to sleeping Flat affect Symptomatic orthostasis Left glute pain - pt states "feels like it is torn" Limited awareness of deficits. Staff can assist by continuing to provide education re: RHD. Decreased sensation on the left side of body Plan outcome measure, orientation to midline, left attention, forced use of left side , vector, gait training, pilates, transfer training Pt follows commands well with cues and extra time, pt needs safety cues due to impulsiveness however motiviated to be independent Speech therapy will continue to follow for Right Hemisphere Dysfunction Pt c/o left leg spasms and cramps that are helped by scheduled and PRN muscle relaxants Encourage attention/scanning to left side Proper positioning of LUE/LLE in chair/bed, please follow mally positioning sheet Goals Speech Care Home Goals Will improve attention skills necessary for safety in the home with: Minimal to Moderate assist Will improve skills necessary for KENNY's and safety in the home with: Minimal to Moderate assist Weekly Goals Weekly Bed Mobility Goals: Patient will perform sit to supine with, Patient will perform supine to sit with Patient will perform sit to supine with: Moderate assistance Patient will perform supine to sit with: Moderate assistance Weekly Transfer Goals: Patient will complete sit to stand transfer with, Patient will complete stand to sit transfer with, Patient will complete stand pivot transfer with Patient will complete sit to stand transfer with: Moderate assistance Patient will complete stand to sit transfer with: Moderate assistance Patient will complete stand pivot transfer with: Moderate assistance Weekly Ambulation/Stairs Goals: Patient will ambulate, Patient will ascend/ descend Patient will ambulate: 50 feet, Maximum assistance Patient will ascend/descend: 2 stairs, Moderate assistance, No rail Weekly Goals ADL Goals: Dressing UE, Dressing LE, Grooming, Eating Patient Will Perform Eating: w/ Stand By Assist Patient Will Perform UE Dressing: w/ Minimum Assist Patient Will Perform LE Dressing: w/ Maximum Assist Patient Will Perform Grooming: w/ Stand By Assist, in Chair Pt will demonstrate simple kitchen management with ___ at ___: Minimum assistance Pt will scan environment: 100% of the time, With minimal cues Speech Short Term Goals Will demonstrate higher level reasoning skills for return home with: Progressing Will demonstrate mathematical problem solving skills for ADLs with: Progressing Will demonstrate visual scanning skills with: Progressing Will demonstrate functional reading skills for ADLs with: Progressing Will demonstrate memory for safety sequences for transfer and ADLs with: Progressing Nursing Short Term Goals Bladder Management: Yes Patient / Caregiver will verbalize signs & symptoms of urinary tract infection and what action to do with: Progressing Patient will follow time voiding program independently with: Progressing Bowel Management: Yes Will be able to verbalize dietary regimen that will regulate bowel function with : Moderate verbal cues Medication Management: Yes Will verbalize reason for medication with: Progressing Skin Integrity: Yes Will be free of Stage 1 Pressure Ulcers by performing positioning techniques with: Moderate verbal cues Will verbalize optimal skin care routine with: Moderate verbal cues Will verbalize 2-3 risk factors for pressure ulcers with: Moderate verbal / written cues Pain Management: Yes Will verbalize pain level at or between ____ at rest: Progressing Safety: Yes Will demonstrate understanding of mobility precautions with: Moderate verbal cues Will demonstrate understanding of own limitations with: Moderate verbal cues Disease Knowledge: Yes Will verbalize risk factors of disease process with: Progressing Nutrition: Yes Patient / Caregiver will be able to verbalize knowledge of proper nutrition to prevent fluid overload with: Progressing Functional Williams Measures Eating FIM: 5 - Set up with containers Grooming FIM: 1 - Total assistance, requires 2 staff to assist Bathing FIM: 3 - Moderate assistance, patient performs 50-74% or more of grooming/bathing/dressing/toileting tasks Dressing - Upper Body FIM: 3 - Moderate assistance, patient performs 50-74% or more of grooming/bathing/dressing/toileting tasks Dressing - Lower Body FIM: 1 - Total assistance, patient performs less than 25% of grooming/bathing/dressing/toileting tasks Toileting FIM: 1 - Total assistance, requires 2 staff to assist Bladder FIM: 3 - Moderate assistance to maintain an external device Bowel FIM: 6 - Modified independence - Medication Transfers FIM: 2 - Maximal assistance, lifting assistance to initiate and complete transfer Toilet Transfers FIM: 2 - Maximal assistance, lifting assistance to initiate and complete transfer Shower Transfers FIM: 1 - Total assistance, two or more people Gait: 0 - Activity did not occur - Unable due to motor control Wheelchair FIM: 0 - Acitivity did not occur - Unable due to motor control Stairs FIM: 0 - Activity did not occur - Unable due to motor control Comprehension FIM: 5 - Standby prompting. Understands abstract and/or basic information greater than 90% of the time, prompting less than 10% Expression FIM: 5 - Standy prompting - Able to express abstract and/or basic information >90% of the time, prompting <10% Social Interaction FIM: 5 - Supervision required - Requires encouragement to initiate participation Problem Solving FIM: 3 - Moderate prompting - Able to solve routine problems 50- 74%. Needs direction less than half of the time to initiate, plan or complete daily activities Memory FIM: 3 - Moderate promting - Able to recognize people frequently encountered, remembers daily routines, responds to requests of others 50-74% of the time, needs prompting less than half of the time Associated attestation - Maximo Sheriff MD - 04/02/2017 11:54 AM 3D MODELER I personally led the interdisciplinary team meeting and concur with all decisions made by the interdisciplinary team. Maximo Sheriff MD * Case Mgmt DC Plan - MalgorzatarandolphLesa bedoya - 03/29/2017 1:29 PM 3D MODELER Formatting of this note may be different from the original. Case Management Admission Assessment NAME:Thomas Osei : AGE: 41 y.o. ADMISSION DATE: 03/28/2017 DAYS ADMITTED: LOS: 1 day Todays Date: 03/29/2017 Source of Information: Patient and Dasia Plan Plan: CM Assessment, Assist PRN with /NCM Services, Discharge Planning for Home Anticipated Emergency Contact Extended Emergency Contact Information Primary Emergency Contact: Dasia Weber Address: [address] [place] [address] Relation: Spouse DPOA None, not interested at this time. Transportation Does the patient need discharge transport arranged?: No Transportation Name, Phone and Availability #1: marley Gonzalez [phone] Does the patient use Medicaid Transportation?: No Expected Discharge Expected Discharge Date: 04/26/17 Living Situation Prior to Admission ? Living Arrangements Type of Residence: Home, independent Living Arrangements: Spouse/significant other, Children (Pt lives with Dasia and their 2 dgts both 9.) Bathroom Shower / Tub: Tub/Shower Unit, Walk-in Shower (Pt will use tub/shower as walk in shower is very small.) Bathroom Toilet: Standard Bathroom Accessibility: Accessible via Walker (Pt's weber bath with tub/shower is rw accessible, however master fiber optic technician bath is not rw accessible, however will need to use at night for toileting.) How many levels in the residence?: 2 (Pt has 2 steps to enter home and 1 step to master fiber optic technician. Pt would like to climb 12 steps to reach dgt's fiber optic technician with bannister half way and no rail further.) Can patient live on one level if needed?: No (Pt has 1 step to fiber optic technician.) Support Systems: Spouse/Partner ( Dasia is primary support and she reports she can take some time off and do some network director upon initial dc. states there is no other family in the area to assist.) Assistance Needed: Yes Who provides assistance or could if needed?: Dasia initially Are they in good health?: Yes Can support system provide 24/7 care if needed?: Yes ( Dasia can provide initially, however not retirement.) Home Care Services: No ? 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 Cognitive Abilities Cognitive Abilities: Alert and Oriented, Continue to Assess Financial Resources ? Coverage Primary Insurance: Commercial insurance (BCBS) Secondary Insurance: No insurance Additional Coverage: RX ? 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 Financial Assistance Needed? None Current/Previous Services ? PCP Pt sees Dr. Malcolm Childers in [place], [place] . ? DME DME at home: None ? Home Health Receiving home health: No ? HD or PD Undergoing hemodialysis or peritoneal dialysis: No ? Tube/Enteral Feeds Receive tube/enteral feeds: No ? Infusion Receive infusions: No ? Private Duty Private duty help used: No ? HCBS Home and community based services: No ? Thomas White Thomas White: N/A ? Hospice Hospice: No ? Outpatient Therapy PT: No OT: No NURSING CARE PARTNER: No ? SNF/NH SNF: No NH: No ? IPR IPR: No ? LTACH LTACH: No ? Acute Hospital Stay Acute Hospital Stay: Yes Was patient's stay within the last 30 days?: Yes When did patient receive care?: 03/20/17 until transfer to [facility] Name of hospital: [facility] Psychosocial Needs ? Mental Health Mental Health History: No ( reports pt is hard on himself so the stroke has been hard on him. 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 Substance History History Smoking Status Never Smoker Smokeless Tobacco Never Used History Alcohol Use No History Drug Use No ? Abuse/Sexual Assault Have You Ever Been Hit, Hurt Or Threatened In Any Way In The Past 5 Years?: Unable to Assess Lesa Henry LMSW *[phone] in this encounter Plan of Treatment Not on fileas of this encounter Results * UA REFLEX CULTURE LABEL (04/30/2017 5:45 PM) Component Value Ref Range UA Reflex Culture LAB LABEL Specimen Performing Laboratory [facility] [address] [place] [address] * URINALYSIS MICROSCOPIC REFLEX TO CULTURE (04/30/2017 5:45 PM) Component Value Ref Range WBCs,UA 0-2 0 - 2 /HPF RBCs,UA 0-2 0 - 3 /HPF Comment,UA Urine submitted for reflex culture if criteria are met:WBC>10, positive nitrite and/or >=1+ leukocyte esterase. If quantity is not sufficient, an addendum will follow. Hyaline Cast 0-2 Specimen Performing Laboratory Urine [facility] [address] [place] [address] * URINALYSIS DIPSTICK REFLEX TO CULTURE (04/30/2017 5:45 PM) Component Value Ref Range Color,UA YELLOW Turbidity,UA CLEAR CLEAR-CLEAR Specific Bradley-Urine 1.019 1.003 - 1.035 pH,UA 6.0 5.0 - 8.0 Protein,UA NEG NEG-NEG Glucose,UA NEG NEG-NEG Ketones,UA NEG NEG-NEG Bilirubin,UA NEG NEG-NEG Blood,UA NEG NEG-NEG Urobilinogen,UA NORMAL NORM-NORMAL Nitrite,UA NEG NEG-NEG Leukocytes,UA NEG NEG-NEG Urine Ascorbic Acid, UA NEG NEG-NEG Specimen Performing Laboratory [facility] [address] [place] [address] * CT HEAD WO CONTRAST (04/30/2017 11:12 [...] no midline shift or mass effect. The jose white matter interfaces are otherwise maintained. The basal cisterns are patent. There is no evidence of acute intracranial hemorrhage or extra-axial fluid collection. The mastoid air cells and visualized paranasal sinuses are well-aerated. Procedure Note Interface, Radiant Results - 04/30/2017 11:57 AM 3D MODELER EXAM: CT HEAD HISTORY: Male, 41 years [...] no midline shift or mass effect. The jose white matter interfaces are otherwise maintained. The [...] Ruffin D.O. on 04/30/2017 11:18 AM. * BASIC METABOLIC PANEL (04/30/2017 8:47 AM) [...] Pharmacist for questions. Specimen Performing Laboratory [facility] [address] [place] [address] * CBC (04/30/2017 8:47 AM) Component Value [...] - 11 FL Specimen Performing Laboratory [facility] [address] [place] [address] * CBC (04/22/2017 8:24 AM) Component Value Ref Range White Blood Cells 5.8 4.5 - 11.0 K/UL RBC 5.01 4.4 - 5.5 M/UL Hemoglobin 15.6 13.5 - 16.5 GM/DL Hematocrit 45.7 40 - 50 % MCV 91.3 80 - 100 FL MCH 31.0 26 - 34 PG MCHC 34.0 32.0 - 36.0 G/DL RDW 12.8 11 - 15 % Platelet Count 231 150 - 400 K/UL MPV 8.0 7 - 11 FL Specimen Performing Laboratory [facility] [address] [place] [address] * BASIC METABOLIC PANEL (04/22/2017 8:24 AM) Component Value Ref Range Sodium 139 137 - 147 MMOL/L Potassium 4.3 3.5 - 5.1 MMOL/L Chloride 105 98 - 110 MMOL/L CO2 29 21 - 30 MMOL/L Anion Gap 5 3 - 12 Glucose 99 70 - 100 MG/DL Blood Urea Nitrogen 16 7 - 25 MG/DL Creatinine 0.99 0.4 - 1.24 MG/DL Calcium 9.4 8.5 - 10.6 MG/DL eGFR Non >60 [...] Pharmacist for questions. Specimen Performing Laboratory [facility] [address] [place] [address] * CBC (04/18/2017 8:10 AM) Component Value Ref Range White Blood Cells 6.0 4.5 - 11.0 K/UL RBC 5.29 4.4 - 5.5 M/UL Hemoglobin 16.2 13.5 - 16.5 GM/DL Hematocrit 47.9 40 - 50 % MCV 90.6 80 - 100 FL MCH 30.7 26 - 34 PG MCHC 33.9 32.0 - 36.0 G/DL RDW 12.9 11 - 15 % Platelet Count 316 150 - 400 K/UL MPV 7.6 7 - 11 FL Specimen Performing Laboratory [facility] [address] [place] [address] * BASIC METABOLIC PANEL (04/18/2017 8:10 AM) Component Value Ref Range Sodium 137 137 - 147 MMOL/L Potassium 4.0 3.5 - 5.1 MMOL/L Chloride 102 98 - 110 MMOL/L CO2 27 21 - 30 MMOL/L Anion Gap 8 3 - 12 Glucose 99 70 - 100 MG/DL Blood Urea Nitrogen 25 7 - 25 MG/DL Creatinine 0.92 0.4 - 1.24 MG/DL Calcium 9.7 8.5 - 10.6 MG/DL eGFR Non >60 [...] Pharmacist for questions. Specimen Performing Laboratory [facility] [address] [place] [address] * CBC (04/15/2017 8:20 AM) Component Value Ref Range White Blood Cells 5.9 4.5 - 11.0 K/UL RBC 4.85 4.4 - 5.5 M/UL Hemoglobin 15.6 13.5 - 16.5 GM/DL Hematocrit 44.6 40 - 50 % MCV 92.1 80 - 100 FL MCH 32.3 26 - 34 PG MCHC 35.0 32.0 - 36.0 G/DL RDW 12.5 11 - 15 % Platelet Count 318 150 - 400 K/UL MPV 7.3 7 - 11 FL Specimen Performing Laboratory [facility] [address] [place] [address] * BASIC METABOLIC PANEL (04/15/2017 8:20 AM) Component Value Ref Range Sodium 139 137 - 147 MMOL/L Potassium 4.1 3.5 - 5.1 MMOL/L Chloride 104 98 - 110 MMOL/L CO2 29 21 - 30 MMOL/L Anion Gap 6 3 - 12 Glucose 95 70 - 100 MG/DL Blood Urea Nitrogen 22 7 - 25 MG/DL Creatinine 0.89 0.4 - 1.24 MG/DL Calcium 9.6 8.5 - 10.6 MG/DL eGFR Non >60 [...] Pharmacist for questions. Specimen Performing Laboratory [facility] [address] [place] [address] * BASIC METABOLIC PANEL (04/12/2017 8:35 AM) Component Value Ref Range Sodium 136 (L) 137 - 147 MMOL/L Potassium 4.0 3.5 - 5.1 MMOL/L Chloride 103 98 - 110 MMOL/L CO2 24 21 - 30 MMOL/L Anion Gap 9 3 - 12 Glucose 99 70 - 100 MG/DL Blood Urea Nitrogen 24 7 - 25 MG/DL Creatinine 0.85 0.4 - 1.24 MG/DL Calcium 9.6 8.5 - 10.6 MG/DL eGFR Non >60 [...] Pharmacist for questions. Specimen Performing Laboratory [facility] [address] [place] [address] * CBC (04/12/2017 8:35 AM) Component Value Ref Range White Blood Cells 8.6 4.5 - 11.0 K/UL RBC 5.13 4.4 - 5.5 M/UL Hemoglobin 15.9 13.5 - 16.5 GM/DL Hematocrit 47.0 40 - 50 % MCV 91.7 80 - 100 FL MCH 30.9 26 - 34 PG MCHC 33.7 32.0 - 36.0 G/DL RDW 12.4 11 - 15 % Platelet Count 388 150 - 400 K/UL MPV 7.6 7 - 11 FL Specimen Performing Laboratory [facility] [address] [place] [address] * BASIC METABOLIC PANEL (04/10/2017 7:58 AM) Component Value Ref Range Sodium 138 137 - 147 MMOL/L Potassium 4.2 3.5 - 5.1 MMOL/L Chloride 104 98 - 110 MMOL/L CO2 27 21 - 30 MMOL/L Anion Gap 7 3 - 12 Glucose 97 70 - 100 MG/DL Blood Urea Nitrogen 19 7 - 25 MG/DL Creatinine 0.85 0.4 - 1.24 MG/DL Calcium 9.4 8.5 - 10.6 MG/DL eGFR Non >60 [...] Pharmacist for questions. Specimen Performing Laboratory [facility] [address] [place] [address] * CBC (04/10/2017 7:58 AM) Component Value Ref Range White Blood Cells 8.3 4.5 - 11.0 K/UL RBC 4.77 4.4 - 5.5 M/UL Hemoglobin 14.9 13.5 - 16.5 GM/DL Hematocrit 44.4 40 - 50 % MCV 93.1 80 - 100 FL MCH 31.3 26 - 34 PG MCHC 33.7 32.0 - 36.0 G/DL RDW 12.6 11 - 15 % Platelet Count 375 150 - 400 K/UL MPV 7.3 7 - 11 FL Specimen Performing Laboratory [facility] [address] [place] [address] * BASIC METABOLIC PANEL (04/08/2017 8:29 AM) Component Value Ref Range Sodium 138 137 - 147 MMOL/L Potassium 4.2 3.5 - 5.1 MMOL/L Chloride 105 98 - 110 MMOL/L CO2 24 21 - 30 MMOL/L Anion Gap 9 3 - 12 Glucose 110 (H) 70 - 100 MG/DL Blood Urea Nitrogen 22 7 - 25 MG/DL Creatinine 0.93 0.4 - 1.24 MG/DL Calcium 9.1 8.5 - 10.6 MG/DL eGFR Non >60 [...] Pharmacist for questions. Specimen Performing Laboratory [facility] [address] [place] [address] * CBC (04/08/2017 8:29 AM) Component Value Ref Range White Blood Cells 9.9 4.5 - 11.0 K/UL RBC 4.85 4.4 - 5.5 M/UL Hemoglobin 15.3 13.5 - 16.5 GM/DL Hematocrit 44.6 40 - 50 % MCV 92.0 80 - 100 FL MCH 31.5 26 - 34 PG MCHC 34.2 32.0 - 36.0 G/DL RDW 12.6 11 - 15 % Platelet Count 417 (H) 150 - 400 K/UL MPV 7.2 7 - 11 FL Specimen Performing Laboratory [facility] [address] [place] [address] * BASIC METABOLIC PANEL (04/05/2017 7:56 AM) Component Value Ref Range Sodium 133 (L) 137 - 147 MMOL/L Potassium 3.9 3.5 - 5.1 MMOL/L Chloride 101 98 - 110 MMOL/L CO2 24 21 - 30 MMOL/L Anion Gap 8 3 - 12 Glucose 112 (H) 70 - 100 MG/DL Blood Urea Nitrogen 20 7 - 25 MG/DL Creatinine 0.85 0.4 - 1.24 MG/DL Calcium 9.3 8.5 - 10.6 MG/DL eGFR Non >60 [...] Pharmacist for questions. Specimen Performing Laboratory [facility] [address] [place] [address] * CBC (04/05/2017 7:56 AM) Component Value Ref Range White Blood Cells 9.6 4.5 - 11.0 K/UL RBC 4.75 4.4 - 5.5 M/UL Hemoglobin 14.9 13.5 - 16.5 GM/DL Hematocrit 44.2 40 - 50 % MCV 93.1 80 - 100 FL MCH 31.4 26 - 34 PG MCHC 33.7 32.0 - 36.0 G/DL RDW 12.5 11 - 15 % Platelet Count 399 150 - 400 K/UL MPV 7.4 7 - 11 FL Specimen Performing Laboratory [facility] [address] [place] [address] * BASIC METABOLIC PANEL (04/03/2017 7:51 AM) Component Value Ref Range Sodium 135 (L) 137 - 147 MMOL/L Potassium 4.1 3.5 - 5.1 MMOL/L Chloride 101 98 - 110 MMOL/L CO2 27 21 - 30 MMOL/L Anion Gap 7 3 - 12 Glucose 118 (H) 70 - 100 MG/DL Blood Urea Nitrogen 16 7 - 25 MG/DL Creatinine 0.77 0.4 - 1.24 MG/DL Calcium 9.3 8.5 - 10.6 MG/DL eGFR Non >60 [...] Pharmacist for questions. Specimen Performing Laboratory [facility] [address] [place] [address] * CBC (04/03/2017 7:51 AM) Component Value Ref Range White Blood Cells 10.4 4.5 - 11.0 K/UL RBC 4.82 4.4 - 5.5 M/UL Hemoglobin 15.4 13.5 - 16.5 GM/DL Hematocrit 43.9 40 - 50 % MCV 91.1 80 - 100 FL MCH 31.9 26 - 34 PG MCHC 35.0 32.0 - 36.0 G/DL RDW 12.5 11 - 15 % Platelet Count 331 150 - 400 K/UL MPV 7.8 7 - 11 FL Specimen Performing Laboratory [facility] [address] [place] [address] * BASIC METABOLIC PANEL (04/02/2017 7:40 AM) Component Value Ref Range Sodium 136 (L) 137 - 147 MMOL/L Potassium 4.1 3.5 - 5.1 MMOL/L Chloride 103 98 - 110 MMOL/L CO2 23 21 - 30 MMOL/L Anion Gap 10 3 - 12 Glucose 150 (H) 70 - 100 MG/DL Blood Urea Nitrogen 22 7 - 25 MG/DL Creatinine 0.80 0.4 - 1.24 MG/DL Calcium 9.3 8.5 - 10.6 MG/DL eGFR Non >60 [...] Pharmacist for questions. Specimen Performing Laboratory [facility] [address] [place] [address] * CBC (04/02/2017 7:40 AM) Component Value Ref Range White Blood Cells 10.6 4.5 - 11.0 K/UL RBC 4.84 4.4 - 5.5 M/UL Hemoglobin 15.3 13.5 - 16.5 GM/DL Hematocrit 44.3 40 - 50 % MCV 91.5 80 - 100 FL MCH 31.6 26 - 34 PG MCHC 34.6 32.0 - 36.0 G/DL RDW 12.7 11 - 15 % Platelet Count 291 150 - 400 K/UL MPV 7.6 7 - 11 FL Specimen Performing Laboratory [facility] [address] [place] [address] * BASIC METABOLIC PANEL (04/01/2017 9:05 AM) Component Value Ref Range Sodium 135 (L) 137 - 147 MMOL/L Potassium 3.8 3.5 - 5.1 MMOL/L Chloride 103 98 - 110 MMOL/L CO2 25 21 - 30 MMOL/L Anion Gap 7 3 - 12 Glucose 139 (H) 70 - 100 MG/DL Blood Urea Nitrogen 20 7 - 25 MG/DL Creatinine 0.96 0.4 - 1.24 MG/DL Calcium 8.9 8.5 - 10.6 MG/DL eGFR Non >60 [...] Pharmacist for questions. Specimen Performing Laboratory [facility] [address] [place] [address] * CBC (04/01/2017 9:05 AM) Component Value Ref Range White Blood Cells 7.6 4.5 - 11.0 K/UL RBC 4.65 4.4 - 5.5 M/UL Hemoglobin 14.6 13.5 - 16.5 GM/DL Hematocrit 42.4 40 - 50 % MCV 91.3 80 - 100 FL MCH 31.5 26 - 34 PG MCHC 34.5 32.0 - 36.0 G/DL RDW 12.8 11 - 15 % Platelet Count 231 150 - 400 K/UL MPV 7.9 7 - 11 FL Specimen Performing Laboratory [facility] [address] [place] [address] * BASIC METABOLIC PANEL (03/31/2017 7:15 AM) Component Value Ref Range Sodium 133 (L) 137 - 147 MMOL/L Potassium 4.0 3.5 - 5.1 MMOL/L Chloride 101 98 - 110 MMOL/L CO2 25 21 - 30 MMOL/L Anion Gap 7 3 - 12 Glucose 112 (H) 70 - 100 MG/DL Blood Urea Nitrogen 20 7 - 25 MG/DL Creatinine 0.83 0.4 - 1.24 MG/DL Calcium 9.1 8.5 - 10.6 MG/DL eGFR Non >60 [...] Pharmacist for questions. Specimen Performing Laboratory [facility] [address] [place] [address] * CBC (03/31/2017 7:15 AM) Component Value Ref Range White Blood Cells 6.0 4.5 - 11.0 K/UL RBC 4.70 4.4 - 5.5 M/UL Hemoglobin 14.8 13.5 - 16.5 GM/DL Hematocrit 42.7 40 - 50 % MCV 90.8 80 - 100 FL MCH 31.4 26 - 34 PG MCHC 34.5 32.0 - 36.0 G/DL RDW 12.7 11 - 15 % Platelet Count 233 150 - 400 K/UL MPV 7.8 7 - 11 FL Specimen Performing Laboratory [facility] [address] [place] [address] * BASIC METABOLIC PANEL (03/30/2017 8:11 AM) Component Value Ref Range Sodium 132 (L) 137 - 147 MMOL/L Potassium 4.1 3.5 - 5.1 MMOL/L Chloride 101 98 - 110 MMOL/L CO2 23 21 - 30 MMOL/L Anion Gap 8 3 - 12 Glucose 136 (H) 70 - 100 MG/DL Blood Urea Nitrogen 27 (H) 7 - 25 MG/DL Creatinine 0.86 0.4 - 1.24 MG/DL Calcium 9.1 8.5 - 10.6 MG/DL eGFR Non >60 [...] Performing Laboratory [facility] [address] [place] [address] * CBC (03/30/2017 8:11 AM) Component Value Ref Range White Blood Cells 9.5 4.5 - 11.0 K/UL RBC 4.91 4.4 - 5.5 M/UL Hemoglobin 15.6 13.5 - 16.5 GM/DL Hematocrit 45.2 40 - 50 % MCV 92.0 80 - 100 FL MCH 31.7 26 - 34 PG MCHC 34.4 32.0 - 36.0 G/DL RDW 13.3 11 - 15 % Platelet Count 239 150 - 400 K/UL MPV 7.8 7 - 11 FL Specimen Performing Laboratory [facility] [address] [place] [address] * ABDOMEN AP ONLY (03/29/2017 7:25 PM) Specimen Performing Laboratory [facility] RAD RESULTS Impressions Scattered gas-filled loops of large and small bowel throughout the abdomen with mildly prominent gas-filled loops of small bowel within the left upper quadrant. Findings are likely due to an ileus. Approved by Rachel Hudson M.D. on 03/30/2017 8:37 AM By my electronic signature, I attest that I have personally reviewed the images for this examination and formulated the interpretations and opinions expressed in this report Finalized by JORGE LUIS QUEVEDO M.D. on 03/30/2017 10:51 AM. Dictated by Rachel Hudson M.D. on 03/30/2017 7:03 AM. Narrative Procedure: ABDOMEN AP ONLY Clinical Indication: No bowel movement for 5 days Comparison: AP abdomen 03/21/2017 Findings: Scattered gas-filled loops of large and small bowel are noted throughout the abdomen with mildly prominent gas filled loops of small bowel within the left upper quadrant. No obvious pneumoperitoneum. Procedure Note Interface, Radiant Results - 03/30/2017 10:54 AM 3D MODELER Procedure: ABDOMEN AP ONLY Clinical Indication: No bowel movement for 5 days Comparison: AP abdomen 03/21/2017 Findings: Scattered gas-filled loops of large and small bowel are noted throughout the abdomen with mildly prominent gas filled loops of small bowel within the left upper quadrant. No obvious pneumoperitoneum. IMPRESSION Scattered gas-filled loops of large and small bowel throughout the abdomen with mildly prominent gas-filled loops of small bowel within the left upper quadrant. Findings are likely due to an ileus. Approved by Rachel Hudson M.D. on 03/30/2017 8:37 AM By my electronic signature, I attest that I have personally reviewed the images for this examination and formulated the interpretations and opinions expressed in this report Finalized by JORGE LUIS QUEVEDO M.D. on 03/30/2017 10:51 AM. Dictated by Rachel Hudson M.D. on 03/30/2017 7:03 AM. * HIP 2-3 VIEWS W PELVIS LT (03/29/2017 12:10 PM) Specimen Performing Laboratory [facility] RESULTS Impressions Findings/Impression: No acute fracture or dislocation identified. Bilateral hip joint alignment is normal. Joint spaces are maintained. Approved by Ramírez Finch M.D. on 03/29/2017 2:47 PM By my electronic signature, I attest that I have personally reviewed the images for this examination and formulated the interpretations and opinions expressed in this report Finalized by Yan Wolfe M.D. on 03/29/2017 5:30 PM. Dictated by Ramírez Finch M.D. on 03/29/2017 1:19 PM. Narrative HIP 2-3 VIEWS W PELVIS LT Clinical Indication: Male, 41 years old. Left hip pain. Comparison: None Procedure Note Interface, Radiant Results - 03/29/2017 5:33 PM 3D MODELER HIP 2-3 VIEWS W PELVIS LT Clinical Indication: Male, 41 years old. Left hip pain. Comparison: None IMPRESSION Findings/Impression: No acute fracture or dislocation identified. Bilateral hip joint alignment is normal. Joint spaces are maintained. Approved by Ramírez Finch M.D. on 03/29/2017 2:47 PM By my electronic signature, I attest that I have personally reviewed the images for this examination and formulated the interpretations and opinions expressed in this report Finalized by Yan Wolfe M.D. on 03/29/2017 5:30 PM. Dictated by Ramírez Finch M.D. on 03/29/2017 1:19 PM. * BASIC METABOLIC PANEL (03/29/2017 7:48 AM) Component Value Ref Range Sodium 132 (L) 137 - 147 MMOL/L Potassium 3.8 3.5 - 5.1 MMOL/L Chloride 102 98 - 110 MMOL/L CO2 23 21 - 30 MMOL/L Anion Gap 7 3 - 12 Glucose 98 70 - 100 MG/DL Blood Urea Nitrogen 24 7 - 25 MG/DL Creatinine 0.75 0.4 - 1.24 MG/DL Calcium 8.8 8.5 - 10.6 MG/DL eGFR Non >60 [...] Performing Laboratory [facility] [address] [place] [address] * CBC (03/29/2017 7:48 AM) Component Value Ref Range White Blood Cells 14.3 (H) 4.5 - 11.0 K/UL RBC 4.83 4.4 - 5.5 M/UL Hemoglobin 15.2 13.5 - 16.5 GM/DL Hematocrit 45.1 40 - 50 % MCV 93.4 80 - 100 FL MCH 31.5 26 - 34 PG MCHC 33.7 32.0 - 36.0 G/DL RDW 12.6 11 - 15 % Platelet Count 235 150 - 400 K/UL MPV 8.4 7 - 11 FL Specimen Performing Laboratory [facility] [address] [place] [address] in this encounter Visit Diagnoses Diagnosis Cerebrovascular accident (CVA) due to thrombosis of right middle cerebral artery (HCC) - Primary Impaired mobility and ADLs Mechanical problems with limbs Left hemiparesis (HCC) Hemiplegia, unspecified, affecting unspecified side Left-sided neglect Neurological neglect syndrome UTI (urinary tract infection) Urinary tract infection, site not specified Urinary retention Retention of urine, unspecified Hyponatremia Hyposmolality and/or hyponatremia Admitting Diagnoses Diagnosis STORKE Stroke (HCC) Administered Medications Medication Order MAR Action Action Date Dose Rate Site acetaminophen (TYLENOL) tablet 1,000 mg Given 04/29/2017 1,000 mg 1,000 mg, Oral, EVERY 8 HOURS, First 06:28 3D [facility]DELER dose on Sat03/29/17 at 1400, Until Discontinued, TOTAL ACETAMINOPHEN DOSE NOT TO EXCEED 4GM DAILY Given 04/29/2017 1,000 mg 14:57 3D MODELER Given 04/29/2017 1,000 mg 20:40 3D MODELER acetaminophen (TYLENOL) tablet 1,000 mg 1,000 mg, Oral, EVERY 8 HOURS PRN, Starting Sat04/30/17 at 1000, Until Sat05/01/17 at 1318, Pain non-opioid: may be used alone or in combination with opioid analgesia, TOTAL ACETAMINOPHEN DOSE NOT TO EXCEED 4GM DAILY aluminum/magnesium hydroxide (MAALOX) Given 03/28/2017 30 mL oral suspension 30 mL 17:50 3D MODELER 30 mL, Oral, EVERY 4 HOURS PRN, Starting Tanya 03/28/17 at 1545, Until Sat03/29/17 at 0923, Indigestion/Heartburn Given 03/29/2017 30 mL 07:55 3D MODELER aluminum/magnesium hydroxide (MAALOX) Given 04/24/2017 30 mL oral suspension 30 mL 12:28 3D MODELER 30 mL, Oral, THREE TIMES DAILY WITH MEALS, First dose on Sat03/29/17 at 1200, Until Discontinued Given 04/24/2017 30 mL 17:35 3D MODELER Given 04/25/2017 30 mL 07:51 3D MODELER aluminum/magnesium hydroxide (MAALOX) Given 04/27/2017 30 mL oral suspension 30 mL 09:19 3D MODELER 30 mL, Oral, THREE TIMES DAILY WITH MEALS PRN, Starting Tanya 18 at 1100, Until Sat05/01/17 at 1318, Indigestion/Heartburn aspirin tablet 325 mg Given 04/29/2017 325 mg 325 mg, Oral, DAILY, First dose on Sat 08:07 3D [facility]DELER 03/29/17 at 0900, Until Discontinued Given 04/30/2017 325 mg 08:28 3D MODELER Given 05/01/2017 325 mg 09:50 3D MODELER atorvastatin (LIPITOR) tablet 40 mg Given 04/29/2017 40 mg 40 mg, Oral, DAILY, First dose on Sat 08:07 3D [facility]DELER 03/29/17 at 0900, Until Discontinued Given 04/30/2017 40 mg 08:28 3D MODELER Given 05/01/2017 40 mg 09:50 3D MODELER baclofen (LIORESAL) tablet 10 mg Given 03/30/2017 10 mg 10 mg, Oral, THREE TIMES DAILY, First 14:15 3D MODELER dose on Sat03/29/17 at 1500, Until Discontinued Given 03/30/2017 10 mg 20:08 3D MODELER Given 03/31/2017 10 mg 08:13 3D MODELER baclofen (LIORESAL) tablet 10 mg Given 04/01/2017 10 mg 10 mg, Oral, TWICE DAILY, First dose on 08:04 3[facility] MODELER 03/31/17 at 1500, Until Discontinued Given 04/01/2017 10 mg 14:14 3D MODELER Given 04/02/2017 10 mg 09:22 3D MODELER baclofen (LIORESAL) tablet 15 mg Given 03/31/2017 15 mg 15 mg, Oral, AT BEDTIME DAILY, First 21:15 3D MODELER dose on Sat03/31/17 at 2100, Until Discontinued Given 04/01/2017 15 mg 20:16 3D MODELER baclofen (LIORESAL) tablet 15 mg Given 04/02/2017 15 mg 15 mg, Oral, THREE TIMES DAILY, First 14:15 3D MODELER dose on Tu04/02/17 at 1500, Until Discontinued Given 04/02/2017 15 mg 21:47 3D MODELER Given 04/03/2017 15 mg 08:41 3D MODELER baclofen (LIORESAL) tablet 20 mg Given 03/28/2017 20 mg 20 mg, Oral, THREE TIMES DAILY, First 20:10 3D MODELER dose on Tanya 03/28/17 at 2100, Until Discontinued baclofen (LIORESAL) tablet 20 mg Given 04/30/2017 20 mg 20 mg, Oral, THREE TIMES DAILY, First 15:48 3D MODELER dose on Sat04/03/17 at 1500, Until Discontinued Given 04/30/2017 20 mg 21:41 3D MODELER Given 05/01/2017 20 mg 09:50 3D MODELER bisacodyl (DULCOLAX) rectal suppository Given 03/29/2017 10 mg 10 mg 14:04 3D MODELER 10 mg, Rectal, DAILY PRN, Starting Tanya 03/28/17 at 1551, Until Sat05/01/17 at 1318, Constipation [place], Do not order suppository for neutropenic and/or thrombocytopenic patients. carboxymethylcellulose (REFRESH PLUS) Given 04/02/2017 1 drop 0.5 % ophthalmic solution 1 drop 06:44 3D MODELER 1 drop, Both Eyes, DAILY PRN, Starting 04/02/17 at 0606, Until Sat05/01/17 at 1318, Dry Eyes, Irritated Eyes ciprofloxacin (CIPRO) tablet 500 mg Given 04/03/2017 500 mg 500 mg, Oral, TWICE DAILY, 14 doses, 10:14 3D MODELER First dose on Tanya 03/28/17 at 2100, Last dose on Tanya 04/04/17 at 1100, NURSING: Please educate patient and document: Give 1 hour before or 2 hours after meals. If patient is receiving tube feedings, hold tube feedings 1 hour before and 2 hours after dose. Do not give within 2 hours of antacids, magnesium, calcium, iron, zinc, or vitamins containing these minerals. Given 04/03/2017 500 mg 21:38 3D MODELER Given 04/04/2017 500 mg 10:51 3D MODELER docusate (COLACE) capsule 100 mg Given 04/20/2017 100 mg 100 mg, Oral, TWICE DAILY, First dose on 08:46 3D [facility] 03/28/17 at 2100, Until Discontinued, Hold for loose stools Given 04/20/2017 100 mg 21:00 3D MODELER Given 04/21/2017 100 mg 08:35 3D MODELER doxazosin (CARDURA) tablet 2 mg Given 04/08/2017 2 mg 2 mg, Oral, DAILY, First dose on Sat 08:38 3D MODELER 03/29/17 at 0900, Until Discontinued Given 04/09/2017 2 mg 09:24 3D MODELER Given 04/10/2017 2 mg 08:29 3D MODELER enoxaparin (LOVENOX) syringe 40 mg Given 04/28/2017 40 mg Abdominal 40 mg, Subcutaneous, DAILY, First dose 21:22 3D MODELER Tissue on 04/06/17 at 2100, Until Discontinued, For patients undergoing surgery: Consult physician in advance -- enoxaparin is an anticoagulant and may need to be held for 12hr prior to surgery or invasive procedures. NOTE: This is a HIGH ALERT Medication. Given 04/29/2017 40 mg Abdomen:RUQ 20:40 3D MODELER Given 04/30/2017 40 mg Abdomen:RLQ 21:41 3D MODELER fluoxetine (PROZAC) capsule 20 mg Given 04/29/2017 20 mg 20 mg, Oral, DAILY, First dose on Sat 08:07 3D MODELER 03/29/17 at 0900, Until Discontinued Given 04/30/2017 20 mg 08:28 3D MODELER Given 05/01/2017 20 mg 09:50 3D MODELER gabapentin (NEURONTIN) capsule 300 mg Given 04/28/2017 300 mg 300 mg, Oral, AT BEDTIME DAILY, First 21:22 3D MODELER dose on Sat04/03/17 at 2100, Until Discontinued Given 04/29/2017 300 mg 20:41 3D MODELER Given 04/30/2017 300 mg 21:41 3D MODELER heparin (porcine) PF syringe 5,000 Units Given 04/05/2017 5,000 Units Arm, Right 5,000 Units, Subcutaneous, EVERY 8 06:41 3D MODELER HOURS, 25 doses, First dose on Tanya 03/28/17 at 2200, Last dose on Sat04/05/17 at 2200, NOTE: This is a HIGH ALERT Medication. Given 04/05/2017 5,000 Units Abdominal 14:51 3D MODELER Tissue Given 04/05/2017 5,000 Units Arm, Right 22:05 3D MODELER HYDROcodone/acetaminophen (NORCO) 5/325 Given 03/28/2017 1 tablet mg tablet 1 tablet 19:28 3D MODELER 1 tablet, Oral, EVERY 6 HOURS PRN, Starting Tanya 03/28/17 at 1529, Until Sat03/29/17 at 0923, Pain PO, TOTAL ACETAMINOPHEN DOSE NOT TO EXCEED 4GM DAILY NOTE: This is a HIGH ALERT Medication. Given 03/29/2017 1 tablet 06:53 3D MODELER lidocaine (LIDODERM) 5 % topical patch 1 Patch 04/29/2017 1 patch Shoulder, patch Applied 08:10 3D MODELER Left 1 patch, Topical, Administer over 12 Hours, DAILY, First dose on 04/21/17 at 1030, Until Discontinued, NURSING PLEASE NOTE: Apply patch ONCE DAILY to L shoulder and REMOVE after designated duration. Apply only to intact skin. Patch may be cut to fit affected area. Patch Applied 04/30/2017 1 patch Shoulder, 08:28 3D MODELER Left Patch Applied 05/01/2017 1 patch Shoulder, 09:50 3D MODELER Left lidocaine (LIDODERM) 5 % topical patch Patch 04/20/2017 1 patch Back, Upper 1-2 patch Applied 08:46 3D MODELER Left 1-2 patch, Topical, Administer over 12 Hours, DAILY, First dose on Sat03/29/17 at 0900, Until Discontinued, NURSING PLEASE NOTE: Apply patch ONCE DAILY to lower back or shoulder and REMOVE after designated duration. Apply only to intact skin. Patch may be cut to fit affected area. Patch Applied 04/21/2017 1 patch Back, Lower 08:34 3D MODELER Left Patch Applied 04/22/2017 1 patch Back, Lower 08:48 3D MODELER Left magnesium citrate oral solution 296 mL Given 03/29/2017 296 mL 296 mL, Oral, ONCE, 1 dose, Sat03/29/17 17:29 3D MODELER at 1730 melatonin tablet 5 mg Given 04/28/2017 5 mg 5 mg, Oral, AT BEDTIME DAILY, First dose 21:22 3D MODELER on Sat03/29/17 at 2100, Until Discontinued Given 04/29/2017 5 mg 20:40 3D MODELER Given 04/30/2017 5 mg 21:41 3D MODELER methocarbamol (ROBAXIN) tablet 1,000 mg Given 03/28/2017 1,000 mg 1,000 mg, Oral, THREE TIMES DAILY, First 20:09 3D MODELER dose on Tanay 03/28/17 at 2000, Until Discontinued Given 03/29/2017 1,000 mg 03:52 3D MODELER methocarbamol (ROBAXIN) tablet 1,000 mg Given 03/31/2017 1,000 mg 1,000 mg, Oral, THREE TIMES DAILY PRN, 22:51 3D MODELER Starting Sat03/29/17 at 0800, Until Sat04/16/17 at 1009, Muscle Cramps, Spasms Given 04/01/2017 1,000 mg 20:16 3D MODELER Given 04/04/2017 1,000 mg 02:11 3D MODELER methocarbamol (ROBAXIN) tablet 750 mg Given 04/29/2017 750 mg 750 mg, Oral, TWICE DAILY PRN, Starting 20:40 3D MODELER Sat04/23/17 at 1407, Until Sat05/01/17 at 1318, Spasms milk of magnesia (CONC) oral suspension Given 03/29/2017 10 mL 10 mL 20:48 3D MODELER 10 mL, Oral, EVERY 4 HOURS PRN, Starting Tanya 03/28/17 at 1551, Until Sat05/01/17 at 1318, Constipation PO, 10 mL CONC=30 mL MOM Given 04/03/2017 10 mL 13:49 3D MODELER Given 04/04/2017 10 mL 10:51 3D MODELER naproxen (NAPROSYN) tablet 250 mg Given 04/11/2017 250 mg 250 mg, Oral, TWICE DAILY PRN, Starting 06:37 3D MODELER Tanya 03/28/17 at 1530, Until Sat04/23/17 at 1016, Pain non-opioid: may be used alone or in combination with opioid analgesia, back pain Given 04/12/2017 250 mg 08:40 3D MODELER Given 04/12/2017 250 mg 18:30 3D MODELER oxyCODONE (ROXICODONE, OXY-IR) tablet 5 Given 03/30/2017 5 mg mg 05:01 3D MODELER 5 mg, Oral, EVERY 4 HOURS PRN, Starting Sat03/29/17 at 0917, Until Sat04/16/17 at 1009, Pain PO pantoprazole DR (PROTONIX) tablet 40 mg Given 04/28/2017 40 mg 40 mg, Oral, DAILY, First dose on Tanya :22 3D MODELER 03/28/17 at 2100, Until Discontinued, Do not crush or chew tablet. Given 04/29/2017 40 mg 20:41 3D MODELER Given 04/30/2017 40 mg 21:41 3D MODELER polyethylene glycol 3350 (MIRALAX) Given 04/24/2017 17 g packet 17 g 21:28 3D MODELER 17 g (1 packet), Oral, TWICE DAILY, First dose on Sat04/04/17 at 0900, Until Discontinued, 8.5 GRAMS=0.5 PACKET 17 GRAMS=1 PACKET 34 GRAMS=2 PACKETS Given 04/25/2017 17 g 09:46 3D MODELER Given 04/25/2017 17 g 21:09 3D MODELER polyethylene glycol 3350 (MIRALAX) packet 17 g 17 g (1 packet), Oral, TWICE DAILY PRN, Starting Sat04/26/17 at 1615, Until Sat05/01/17 at 1318, Constipation PO, 8.5 GRAMS=0.5 PACKET 17 GRAMS=1 PACKET 34 GRAMS=2 PACKETS senna (SENOKOT) tablet 1 tablet Given 04/27/2017 1 tablet 1 tablet, Oral, AT BEDTIME DAILY, First 22:06 3D MODELER dose on Sat04/21/17 at 2100, Until Discontinued, Hold for loose stools Given 04/28/2017 1 tablet 21:22 3D MODELER Given 04/29/2017 1 tablet 20:41 3D MODELER senna (SENOKOT) tablet 1 tablet 1 tablet, Oral, AT BEDTIME PRN, Starting Sat04/30/17 at 1000, Until Sat05/01/17 at 1318, Constipation PO, Hold for loose stools senna (SENOKOT) tablet 2 tablet Given 04/18/2017 2 tablets 2 tablet, Oral, AT BEDTIME DAILY, First 22:03 3D MODELER dose on Sat03/28/17 at 2100, Until Discontinued, Hold for loose stools Given 04/19/2017 2 tablets 21:57 3D MODELER Given 04/20/2017 2 tablets 21:00 3D MODELER sodium chloride(#) inj for po solution Given 04/03/2017 17 mEq 17 mEq 21:37 3D MODELER 17 mEq, Oral, TWICE DAILY, First dose on Tanya 03/28/17 at 2100, Until Discontinued Given 04/04/2017 17 mEq 08:33 3D MODELER Given 04/04/2017 17 mEq 21:29 3D MODELER sodium chloride(#) inj for po solution Given 04/07/2017 17 mEq 17 mEq 08:02 3D MODELER 17 mEq, Oral, DAILY, First dose on Sat04/05/17 at 0900, Until Discontinued Given 04/08/2017 17 mEq 08:38 3D MODELER Given 04/09/2017 17 mEq 09:26 3D MODELER traZODone (DESYREL) tablet 50 mg Given 04/28/2017 50 mg 50 mg, Oral, AT BEDTIME PRN, Starting 21:26 3D MODELER Sat03/29/17 at 0922, Until Sat05/01/17 at 1318, Insomnia Given 04/29/2017 50 mg 20:52 3D MODELER Given 04/30/2017 50 mg 21:41 3D MODELER in this encounter
--- OUTSIDE RECORDS SUMMARY | 2017-07-24 15:05 | XMS REPORT | Encounter Summary ---
Author Author [facility] Organization [facility] Address Unknown Phone Unavailable Care Team Providers Care Franchise Broker Name Role Phone No Pcp, Na PCP Unavailable Encounter Details Date Type Department Care Team Description 04/30/2017 Procedure Pass [facility] [address] [place] [address] Social History Tobacco Use Types Packs/Day Years [...]
--- OUTSIDE RECORDS SUMMARY | 2017-07-24 15:05 | XMS REPORT ---
Author Author Nathan Childers [facility] Address [address] [place], [place] [id number] Care Team Providers Care Construction Superintendent Name Role Phone Nathan Childers PCP Unavailable Nathan Childers PreferredProvider Unavailable Allergies and Adverse Reactions Name Reaction Notes NO KNOWN DRUG ALLERGIES Bee Stings Plan of Treatment Not available. Medications Active Name Start Date Estimated Completion Date SIG Comments testosterone cypionate 200 mg/mL intramuscular oil 08/16/2016 inject 1 ml monthly Name Start Date Expiration Date SIG Comments Claritin Oral tablet 10 mg take 1 tablet (10 mg) by oral route once daily Zithromax Z-Hunter oral tablet 250 mg 03/09/2013 03/14/2013 take 2 tablets (500 mg) by oral route once daily for 1 day then 1 tablet (250 mg) by oral route once daily for 4 days Problem List Description Status Onset Testosterone deficiency Active Vital Signs Date Time BP-Sys(mm[Hg] BP-Pricilla(mm[Hg]) HR(bpm) RR(rpm) Temp WT HT HC BMI BSA BMI Percentile O2 Sat(%) 07/31/2016 8:35:00 AM 122 mmHg 68 mmHg 57 bpm 18 rpm 98 F 173.5 lbs 74 in 22.28 kg/m2 2.03 m2 100 % 12/15/2012 8:39:00 AM 124 mmHg 76 mmHg 56 bpm 16 rpm 98.2 F 158 lbs 74 in 20.2858 kg/m 1.9344 m 04/17/2010 1:33:00 PM 120 mmHg 76 mmHg 70 bpm 98.5 F Social History Name Description Comments Tobacco Never smoker denies smoking denies alcohol use History of Procedures Date Ordered Description Order Status 07/31/2016 12:00 AM COMPLETE CBC W/AUTO DIFF WBC Reviewed 07/31/2016 12:00 AM COMPREHEN METABOLIC PANEL Reviewed 07/31/2016 12:00 AM LIPID PANEL Reviewed 07/31/2016 12:00 AM ASSAY THYROID STIM HORMONE Reviewed 07/31/2016 12:00 AM VITAMIN B-12 Reviewed 07/31/2016 12:00 AM ASSAY OF TOTAL TESTOSTERONE Reviewed 07/31/2016 12:00 AM ASSAY OF FREE TESTOSTERONE Reviewed 12/15/2012 12:00 AM COMPLETE CBC W/AUTO DIFF WBC Reviewed 12/15/2012 12:00 AM COMPREHEN METABOLIC PANEL Reviewed 12/15/2012 12:00 AM ASSAY OF FREE TESTOSTERONE Reviewed 12/15/2012 12:00 AM ASSAY OF TOTAL TESTOSTERONE Reviewed Results Summary Date and Description Results 12/15/2012 9:15 AM WBC 5.8 RBC 5.04 HGB 16.10 g/dLHCT 46.10 %MCV 92.0 fLMCH 31.90 pgMCHC 34.90 g/dLRDW SD 41 RDW CV 12.30 %MPV 9.90 fLPLT 245 NRBC# 0.00 NRBC% 0.0 %NEUT 51.10 %%LYMP 37.90 %%MONO 7.10 %%EOS 3.60 %%BASO 0.30 %#NEUT 2.97 #LYMP 2.20 #MONO 0.41 #EOS 0.21 #BASO 0.02 MANUAL DIFF NOT IND GLUCOSE 70.0 mg/dLSODIUM 139.0 mmol/LPOTASSIUM 3.80 mmol/LCHLORIDE 103.0 mmol/LCO2 28.0 mmol/LBUN 17.0 mg/dLCREATININE 0.80 mg/dLSGOT/AST 25.0 IU/LSGPT/ALT 27.0 IU/ LALK PHOS 72.0 IU/LTOTAL PROTEIN 7.50 g/dLALBUMIN 4.10 g/dLTOTAL BILI 1.0 mg/ dLCALCIUM 9.30 mg/dLAGE 36 GFR NonAA 111 GFR AA 135 eGFR 60 eGFR AA* 60 07/31/2016 9:00 AM GLUCOSE 105.0 mg/dLSODIUM 138.0 mmol/LPOTASSIUM 3.80 mmol/ LCHLORIDE 101.0 mmol/LCO2 24.0 mmol/LBUN 14.0 mg/dLCREATININE 1.0 mg/dLSGOT/AST 28.0 IU/LSGPT/ALT 35.0 IU/LALK PHOS 71.0 IU/LTOTAL PROTEIN 8.70 g/dLALBUMIN 4.60 g/dLTOTAL BILI 1.10 mg/dLCALCIUM 9.70 mg/dLAGE 40 GFR NonAA 84 GFR AA 102 eGFR >60 mL/min/1.73meGFR AA* >60 TRIGLYCERIDES 196.0 mg/dLCHOLESTEROL 229.0 mg/dLHDL 47.0 mg/dLTOT CHOL/HDL 4.9 LDL (CALC) 143.0 mg/dLTSH 1.690 uIU/mLWBC 6.1 RBC 5.71 HGB 18.10 g/dLHCT 51.60 %MCV 90.0 fLMCH 31.70 pgMCHC 35.10 g/dLRDW SD 39 RDW CV 12.0 %MPV 9.60 fLPLT 300 NRBC# 0.00 NRBC% 0.0 %NEUT 54.70 %%LYMP 36.70 %%MONO 5.90 %%EOS 2.10 %%BASO 0.30 %#NEUT 3.33 #LYMP 2.24 #MONO 0.36 #EOS 0.13 #BASO 0.02 MANUAL DIFF SEE BELOW SEGS 58 BANDS 0 LYMPHS 37 MONOS 4 EOS 1.0 %VITAMIN B12 646.0 pg/mLTestosterone, Serum 230.0 ng/dLTestosterone,Free 7.38 ng /dL% Free Testosterone 3.210 % History Of Immunizations Not available. History of Past Illness Name Date of Onset Comments Seasonal Allergies Testosterone deficiency Bronchitis Apr 17 2010 1:40PM Low Testosterone Dec 15 2012 8:46AM Fatigue Dec 15 2012 8:46AM Fatigue Jul 31 2016 8:36AM Ischemic heart disease screen Jul 31 2016 8:36AM Low testosterone Jul 31 2016 8:36AM Payers Insurance Name Company Name Plan Name Plan Number Policy Number Policy Group Number Start Date [facility] [id number] N/A [employer] 0 N/A [facility] [id number] N/A History of Encounters Visit Date Visit Type Provider 07/31/2016 Office visit Nathan Childers MD 12/15/2012 Office visit Nathan Childers MD 04/17/2010 Office visit Tim Corley PA-C
--- OUTSIDE RECORDS SUMMARY | 2017-07-24 15:05 | XMS REPORT ---
Author Author Raina Foley [facility] Address [address] [place], [place] [id number] Care Team Providers Care Chief Librarian Branch Or Department Name Role Phone Raina Foley PCP Unavailable Nathan Childers PreferredProvider Unavailable Allergies and Adverse Reactions Name Reaction Notes NO KNOWN DRUG ALLERGIES Bee Stings Plan of Treatment Not available. Medications Active Name Start Date Estimated Completion Date SIG Comments testosterone cypionate 200 mg/mL intramuscular oil 08/16/2016 inject 1 ml monthly Bactrim DS 800-160 mg oral tablet 10/11/2016 10/18/2016 take 1 tablet by oral route every 12 hours for 7 days mupirocin 2 % topical ointment 10/11/2016 apply a small amount to the affected area by topical route 3 times per day Name Start Date Expiration Date SIG Comments [...] HC BMI BSA BMI Percentile O2 Sat(%) 10/11/2016 11:03:00 AM 130 mmHg 73 mmHg 60 bpm 18 rpm 98.1 F 177 lbs 74 in 22.73 kg/m2 2.05 m2 98 % 07/31/2016 8:35:00 AM 122 mmHg 68 mmHg 57 bpm 18 rpm 98 F 173.5 lbs 74 in 22.2759 kg/m 2.0271 m 100 % 12/15/2012 8:39:00 AM 124 mmHg 76 mmHg 56 bpm 16 rpm 98.2 F 158 lbs 74 in 20.29 kg/m2 1.93 m2 04/17/2010 1:33:00 PM 120 mmHg 76 mmHg [...] Testosterone deficiency Bronchitis Apr 17 2010 1:40PM MRSA Low Testosterone Dec 15 2012 8:46AM Fatigue Dec 15 2012 8:46AM Fatigue Jul 31 2016 8:36AM Ischemic heart disease screen Jul 31 2016 8:36AM Low testosterone Jul 31 2016 8:36AM Cellulitis of left lower extremity Oct 11 2016 11:05AM Payers Insurance Name Company Name Plan Name Plan Number Policy Number Policy Group Number [id number]A History of Encounters Visit Date Visit Type Provider 10/11/2016 Office visit Raina Foley APRN 07/31/2016 Office visit Nathan Childers MD 12/15/2012 Office visit Nathan Childers MD 04/17/2010 Office visit Tim Corley PA-C
--- OUTSIDE RECORDS SUMMARY | 2017-07-24 15:05 | XMS REPORT ---
Author Author Nathan Childers [facility] Address [address] [place], [place] [id number] Care Team Providers Care Visual Presentation Manager Name Role Phone Nathan Childers PCP Unavailable Allergies and Adverse Reactions Name Reaction Notes NO KNOWN DRUG ALLERGIES Bee Stings Plan of Treatment Planned Activity Comments Planned Date Planned Time Plan/Goal CBC With Auto Differential 07/31/2016 12:00 AM CMP 07/31/2016 12:00 AM Lipid profile 07/31/2016 12:00 AM Thyroid stimulating hormone (TSH) 07/31/2016 12:00 AM Vitamin B12 07/31/2016 12:00 AM TESTOSTERONE TOTAL 07/31/2016 12:00 AM TESTOSTERONE FREE 07/31/2016 12:00 AM Medications Name Start Date Expiration Date SIG Comments Claritin Oral tablet 10 mg take 1 tablet (10 mg) by oral route once daily Zithromax Z-Hunter oral tablet 250 mg 03/09/2013 03/14/2013 take 2 tablets (500 mg) by oral route once daily for 1 day then 1 tablet (250 mg) by oral route once daily for 4 days Problem List Not available. Vital Signs Date Time BP-Sys(mm[Hg] BP-Pricilla(mm[Hg]) HR(bpm) [...] of Procedures Date Ordered Description Order Status 12/15/2012 12:00 AM COMPLETE CBC W/AUTO DIFF WBC Reviewed 12/15/2012 12:00 AM COMPREHEN METABOLIC PANEL Reviewed 12/15/2012 12:00 AM ASSAY OF FREE TESTOSTERONE Reviewed 12/15/2012 12:00 AM ASSAY OF TOTAL TESTOSTERONE Reviewed Results Summary Data and Description Results 12/15/2012 9:15 AM WBC [...] AA 135 eGFR 60 eGFR AA* 60 History Of Immunizations Not available. History of [...] Policy Number Policy Group Number Start Date [facility] [id number] N/A [employer] [facility] 0 N/A [facility] [id number] N/A History of Encounters Visit Date Visit Type Provider 07/31/2016 Office visit Nathan Childers MD 12/15/2012 Office visit Nathan Childers MD 04/17/2010 Office visit Tim Corley PA-C
--- OUTSIDE RECORDS SUMMARY | 2017-07-24 15:06 | XMS REPORT | Continuity of Care Document ---
Author Author [facility] Organization [facility] Address Unknown Phone Unavailable Allergies Active Description Code Type Severity Reaction Onset Reported/Identified Relationship to Patient Clinical Status Yes No Known Drug Allergies [id number] Drug Allergy Unknown N/A 12/28/2009 Medications There is no data. Problems Date Dx Coded Attending Type Code Diagnosis Diagnosed By 03/20/2017 ISH CRAWFORD APRN Ot 789.00 ABDOMINAL PAIN, UNSPECIFIED SITE 03/20/2017 ISH CRAWFORD APRN Ot 789.2 SPLENOMEGALY 03/20/2017 ISH CRAWFORD APRN Ot 789.00 ABDOMINAL PAIN, UNSPECIFIED SITE 03/20/2017 ISH CRAWFORD APRN Ot 793.6 NOSP (ABN) FINDINGS ON RADIOLOGICAL OT 03/20/2017 ANTHONY GRAVES MD Ot I63.411 CEREB INFRC DUE TO EMBOLISM OF RIGHT MID 03/20/2017 ANTHONY GRAVES MD Ot R29.818 OTHER SYMPTOMS AND SIGNS INVOLVING THE N 03/20/2017 ANTHONY GRAVES MD Ot Z86.718 PERSONAL HISTORY OF OTHER VENOUS THROMBO 03/20/2017 ANTHONY GRAVES MD, Ot Z87.19 PERSONAL HISTORY OF OTHER DISEASES OF TH Procedures There is no data. Results Test Result Range Complete blood count (CBC) with automated white blood cell (WBC) differential - 03/20/17 07:20 Blood leukocytes automated count (number/volume) 8.0 10*3/uL 4.3-11.0 Blood erythrocytes automated count (number/volume) 5.49 10*6/uL 4.35-5.85 Venous blood hemoglobin measurement (mass/volume) 17.5 g/dL 13.3-17.7 Blood hematocrit (volume fraction) 50 % 40-54 Automated erythrocyte mean corpuscular volume 90 [foz_us] 80-99 Automated erythrocyte mean corpuscular hemoglobin (mass per erythrocyte) 32 pg 25-34 Automated erythrocyte mean corpuscular hemoglobin concentration measurement ( mass/volume) 35 g/dL 32-36 Automated erythrocyte distribution width ratio 12.6 % 10.0-14.5 Automated blood platelet count (count/volume) 295 10*3/uL 130-400 Automated blood platelet mean volume measurement 10.1 [foz_us] 7.4-10.4 Automated blood neutrophils/100 leukocytes 45 % 42-75 Automated blood lymphocytes/100 leukocytes 45 % 12-44 Blood monocytes/100 leukocytes 8 % 0-12 Automated blood eosinophils/100 leukocytes 2 % 0-10 Automated blood basophils/100 leukocytes 0 % 0-10 Blood neutrophils automated count (number/volume) 3.6 10*3 1.8-7.8 Blood lymphocytes automated count (number/volume) 3.6 10*3 1.0-4.0 Blood monocytes automated count (number/volume) 0.6 10*3 0.0-1.0 Automated eosinophil count 0.2 10*3/uL 0.0-0.3 Automated blood basophil count (count/volume) 0.0 10*3/uL 0.0-0.1 Comprehensive metabolic panel - 03/20/17 07:20 Serum or plasma sodium measurement (moles/volume) 139 mmol/L 135-145 Serum or plasma potassium measurement (moles/volume) 3.8 mmol/L 3.6-5.0 Serum or plasma chloride measurement (moles/volume) 105 mmol/L 98-107 Carbon dioxide 22 mmol/L 21-32 Serum or plasma anion gap determination (moles/volume) 12 mmol/L 5-14 Serum or plasma urea nitrogen measurement (mass/volume) 14 mg/dL 7-18 Serum or plasma creatinine measurement (mass/volume) 0.96 mg/dL 0.60-1.30 Serum or plasma urea nitrogen/creatinine mass ratio 15 NRG Serum or plasma creatinine measurement with calculation of estimated glomerular filtration rate > NRG Serum or plasma glucose measurement (mass/volume) 130 mg/dL 70-105 Serum or plasma calcium measurement (mass/volume) 9.1 mg/dL 8.5-10.1 Serum or plasma total bilirubin measurement (mass/volume) 0.8 mg/dL 0.1-1.0 Serum or plasma alkaline phosphatase measurement (enzymatic activity/volume) 47 U/L 40-136 Serum or plasma aspartate aminotransferase measurement (enzymatic activity/ volume) 24 U/L 5-34 Serum or plasma alanine aminotransferase measurement (enzymatic activity/volume ) 35 U/L 0-55 Serum or plasma protein measurement (mass/volume) 7.6 g/dL 6.4-8.2 Serum or plasma albumin measurement (mass/volume) 4.0 g/dL 3.2-4.5 PT panel in platelet poor plasma by coagulation assay - 03/20/17 07:20 Prothrombin time (PT) in platelet poor plasma by coagulation assay 13.3 s 12.2-14.7 INR in platelet poor plasma or blood by coagulation assay 1.0 0.8-1.4 Activated partial thromboplastin time (aPTT) in platelet poor plasma bycoagulation assay - 03/20/17 07:20 Activated partial thromboplastin time (aPTT) in platelet poor plasma bycoagulation assay 23 s 24-35 Fibrin D-dimer FEU measurement in platelet poor plasma (mass/volume) - 07:20 Fibrin D-dimer FEU measurement in platelet poor plasma (mass/volume) 0.50 ug/mL 0.00-0.49 Serum or plasma troponin i.cardiac measurement (mass/volume) - 03/20/17 07:20 Serum or plasma troponin i.cardiac measurement (mass/volume) < ng/ mL <0.30 Complete urinalysis with reflex to culture - 03/20/17 08:13 Urine color determination YELLOW NRG Urine clarity determination CLEAR NRG Urine pH measurement by test strip 7 5-9 Specific gravity of urine by test strip 1.010 1.016- 1.022 Urine protein assay by test strip, semi-quantitative 1+ NEGATIVE Urine glucose detection by automated test strip NEGATIVE NEGATIVE Erythrocytes detection in urine sediment by light microscopy NEGATIVE NEGATIVE Urine ketones detection by automated test strip NEGATIVE NEGATIVE Urine nitrite detection by test strip NEGATIVE NEGATIVE Urine total bilirubin detection by test strip NEGATIVE NEGATIVE Urine urobilinogen measurement by automated test strip (mass/volume) NORMAL NORMAL Urine leukocyte esterase detection by dipstick 1+ NEGATIVE Automated urine sediment erythrocyte count by microscopy (number/high power field) NONE NRG Automated urine sediment leukocyte count by microscopy (number/high power field ) RARE NRG Bacteria detection in urine sediment by light microscopy NEGATIVE NRG Squamous epithelial cells detection in urine sediment by light microscopy RARE NRG Crystals detection in urine sediment by light microscopy NONE NRG Casts detection in urine sediment by light microscopy NONE NRG Mucus detection in urine sediment by light microscopy NEGATIVE NRG Complete urinalysis with reflex to culture NO NRG Encounters ACCT No. Visit Date/Time Discharge Status Pt. Type Provider Facility Loc./Unit Complaint [id number] 04/25/2017 15:20:00 04/25/2017 23:59:59 CLS Preadmit OTHER, UNLISTED [facility] REHAB CVA [id number] 03/20/2017 07:13:00 03/20/2017 09:28:00 DIS Emergency ELY RANGEL, ANTHONY [place] [facility] ER POSS STROKE [id number] 11/11/2013 14:18:00 11/11/2013 23:59:59 CLS Outpatient ISH CRAWFORD APRN [facility] RAD ABD PAIN [id number] 11/11/2013 06:51:00 11/11/2013 23:59:59 CLS Outpatient ISH CRAWFORD APRN [facility] RAD ABD PAIN [id number] 10/11/2016 12:01:17 10/11/2016 23:59:59 CLS Outpatient Raina Foley [id number] 07/31/2016 09:24:08 07/31/2016 23:59:59 CLS Outpatient Nathan Childers
[2017-07-24 15:33] VITALS: BP 142/96
--- NOTE | 2017-07-24 16:03 | Implantation of Loop Monitor ---
Implant of Loop Monitior IMPLANTATION OF LOOP MONITOR REPORT DATE OF PROCEDURE: 07/24/17 PREOP DIAGNOSIS: cryptogenic stroke POSTOP DIAGNOSIS: cryptogenic stroke PROCEDURE DETAILS: The patient is a 41 male with history of paroxysmal atrial fibrillation requiring long-term surveillance. Therefore implantable loop recorder was discussed and agreed with the patient. Informed consent was taken. All risks and complications were discussed at length. The patient was draped and prepped in the usual sterile fashion. Local anesthesia was lidocaine, which was given in the substernal area close to the 4th intercostal space. Loop monitor [employer] with serial number [id number] implanted according to the protocol. Steri-Strips were placed at the end of the procedure. There were no complications and the patient tolerated the procedure well. The device was interrogated with a voltage of. ANESTHESIA: Local anesthesia with lidocaine. COMPLICATIONS: None CONTRAST/FLUOROSCOPY: None CONCLUSION: successful reveal Linq device implantation with no complication FINAL DIAGNOSIS: cryptogenic stroke ALFREDO SU MD Jul 24, 2017 16:03
== END | disposition home or self-care (01) ==
LOC: CATH 14:55
PROVIDERS: ATTEND Internal Medicine Cardiovascular Disease
DX: I63.9 Cerebral infarction, unspecified (principal); I48.0 Paroxysmal atrial fibrillation; Z86.718 Personal history of other venous thrombosis and embolism; E78.5 Hyperlipidemia, unspecified; K21.9 Gastro-esophageal reflux disease without esophagitis
CPT/HCPCS: 33282

== ENCOUNTER 2017-12-26 17:18 | Emergency (ER) | payer BC ==
[~2017-12-26] VITALS: Ht 188 cm; Wt 74.4 kg
[~2017-12-26 17:18] MED LIST changes: -LIDOCAINE 1% INJ 50 ML (XYLOCAINE) VIAL ONE
--- OUTSIDE RECORDS SUMMARY | 2017-12-26 17:22 | XMS REPORT | Clinical Summary ---
Author Author [facility] Organization [facility] Address Unknown Phone Unavailable Care Team Providers Care Key Attendant Name Role Phone Nathan Lee MD PCP Source Comments Some departments are not documenting in the electronic medical record. If you do not see the information that you expected, contact Release of Information in the Health Information Management department at [phone] for further assistance in locating additional records.[facility] Allergies No Known Allergies Current Medications Prescription Sig. Disp. Refills Start End Date Status Date aspirin 325 mg tablet Take 1 tablet by mouth 03/28/20 Active daily. Take with food. 17 gabapentin (NEURONTIN) Take 1 capsule by mouth 30 capsule 1 05/01/19 Active 300 mg capsule at bedtime daily. 18 atorvastatin (LIPITOR) 40 Take 1 tablet by mouth 30 tablet 05/01/19 Active mg tablet daily. 18 baclofen (LIORESAL) 20 mg Take 1 tablet by mouth 90 tablet 1 05/01/19 Active tablet three times daily. [address] Take 1 tablet by mouth 30 tablet 1 05/01/19 Active (PROTONIX) 40 mg tablet daily. 18 traZODone (DESYREL) 50 mg Take 1 tablet by mouth at 90 tablet 3 Active tablet bedtime as needed. 18 methocarbamol (ROBAXIN) Take 1 tablet by mouth 60 tablet 3 05/01/19 Active 750 mg tablet three times daily as 18 needed for Spasms. fluoxetine (PROZAC) 40 mg Take 1 capsule by mouth 30 capsule 1 Active capsule daily. 18 other medication 1 Dose. Hemp oil 2x day Active Hospital, Clinic, or Ordered Dose Route Frequency Start End Date Status Other Facility Date Administered Medication botulinum toxin A (BOTOX) 200 Units IM ONCE 12/03/19 12/03/19 Ended injection 200 18 18 UnitsIndications: Spasticity Active Problems Problem Noted Date History of DVT (deep vein thrombosis) 05/15/2017 Overview: - Hx of LE DVT provoked after injury in -> reported thrombophilia workup at that time negative - No family history of clots or miscarraiges - Presented to [facility] with R MCA artery thrombosis - Hematology was consulted while inpatient and performed thrombophilia workup - Activated Protein C, PNH flow, JAK2, BCRABL, Prothrombin gene mutation, [id number], anti cardiolipin, and lupus anticoagulant all negative [...] Encounters Date Type Specialty Care Team Description 12/25/2017 Hospital Radiology Cameron Ruffin MD Arrived Encounter 12/25/2017 Office Visit Rehabilitation Medicine Alaina Vazquez Adhesive capsulitis of MD [facility] left shoulder (Primary Cameron Ruffin MD Dx); Chronic left shoulder pain; Spastic hemiplegia affecting left nondominant side, unspecified etiology (HCC); Decreased range of motion of left shoulder 12/02/2017 Procedure visit Rehabilitation Medicine Alaina Vazquez Spasticity (Primary Dx); MD [facility] Left spastic hemiparesis (HCC); Cerebrovascular accident (CVA) due to thrombosis of right middle cerebral artery (HCC); Chronic left shoulder pain 12/02/2017 Orders Only Rehabilitation Medicine Alaina Vazquez Spasticity (Primary Dx) MD Jewel 11/28/2017 Refill Rehabilitation Medicine Alaina Vazquez MD 11/13/2017 Telephone Rehabilitation Medicine Alaina Vazquez Letter (return to MD Jewel driving) 09/30/2017 Office Visit Rehabilitation Medicine Alaina Vazquez Left spastic hemiparesis MD Jewel (HCC) (Primary Dx); Cognitive impairment; Depression, unspecified depression type; Cerebrovascular accident (CVA) due to thrombosis of right middle cerebral artery (HCC) from [...] Vital Sign Reading Time Taken Blood Pressure 123/81 12/25/2017 2:07 PM CDT Pulse 68 12/25/2017 2:07 PM CDT Temperature 37.1 C (98.8 F) 08/26/2017 12:29 PM CDT Respiratory Rate 20 12/25/2017 2:07 PM CDT Oxygen Saturation 94% 12/25/2017 2:07 PM CDT Inhaled Oxygen - - Concentration Weight 75.8 kg (167 lb) 12/25/2017 2:07 PM CDT Height 188 cm (6' 2") 12/25/2017 2:07 PM CDT Body Mass Index 21.44 12/25/2017 2:07 PM CDT Plan of Treatment Health Maintenance Due Date Last Done Comments PHYSICAL (COMPREHENSIVE) 1984 EXAM PERTUSSIS VACCINE 1988 HIV SCREENING 1992 TETANUS VACCINE 1994 INFLUENZA VACCINE 01/06/2018 Implants Implanted Type Area Pickle Pumper Device Expiration Model / Identifier Date Serial / Lot Device Closure 70cm 8fr .038in Right: TERUMO:TERUMO [id number] 2017 [id number] / Angio-Seal Vip [employer]-Plus - Sn/A Femoral MED [id number] N/A / Implanted: Qty: 1 on 03/20/2017 by Artery [id number] Arben Diaz MD Procedures Procedure Name Priority Date/Time Associated Diagnosis Comments SHOULDER MIN 2 VIEWS LEFT Routine 12/25/2017 Adhesive capsulitis of Results for this 3:04 PM CDT left shoulder procedure are in the Chronic left shoulder results section. pain IA CHEMODENERVATION 1 Routine 12/02/2017 Left spastic hemiparesis Results for this EXTREMITY EA ADDL 1-4 2:00 PM CDT ([facility]) procedure are in the MUSCLE Spasticity results section. IA CHEMODENERVATION 1 Routine 12/02/2017 Left spastic hemiparesis Results for this EXTREMITY 5 OR MORE 2:00 PM CDT ([facility]) procedure are in the MUSCLES Spasticity results section. IA NEEDLE EMG GUID Routine 12/02/2017 Left spastic hemiparesis Results for this W/CHEMODENERVATION 2:00 PM CDT ([facility]) procedure are in the Spasticity results section. from Last 3 Months Results * SHOULDER MIN 2 VIEWS LEFT (12/25/2017 3:04 PM) Impressions Performed At Acromioclavicular and glenohumeral joints are preserved. [facility] Osseous structures are intact without evidence of acute fracture or dislocation. Visualized left-sided ribs and left lung are within the normal limits. Suspect serpentine appearing subchondral sclerosis within the humeral head. If AVN is of clinical concern, consider follow-up with MRI. Finalized by TRANG MUSTAFA on 12/25/2017 3:47 PM. Dictated by TRANG MUSTAFA on 12/25/2017 3:45 PM. Narrative Performed At SHOULDER MIN 2 VIEWS LEFT [facility] Indication: shoulder pain Comparison: None Technique: 3 views Procedure Note Interface, Radiant Results - 12/25/2017 3:50 PM CDT SHOULDER MIN 2 VIEWS LEFT Indication: shoulder pain Comparison: None Technique: 3 views IMPRESSION Acromioclavicular and glenohumeral joints are preserved. Osseous structures are intact without evidence of acute fracture or dislocation. Visualized left-sided ribs and left lung are within the normal limits. Suspect serpentine appearing subchondral sclerosis within the humeral head. If AVN is of clinical concern, consider follow-up with MRI. Finalized by TRANG MUSTAFA on 12/25/2017 3:47 PM. Dictated by TRANG MUSTAFA on 12/25/2017 3:45 PM. Performing Organization Address City/State/Zipcode Phone Number [facility] * CHEMODENERVATION (12/02/2017 2:00 PM) Narrative Performed At Alaina Vazquez MD 12/02/20173:40 PM IN CLINIC Neurorehabilitation Medicine - Procedure Visit Physical Medicine & Rehabilitation [facility] Date of Service: 12/02/2017 Date of last botulinum toxin injection (any body site): 08/26/2017 Complications or side effects with last injections: No Current or recent fevers, chills, cough, difficulty breathing: No Currently taking antibiotics: No Brief History/ Exam: Patient reports that in the last 2 weeks he has really noticed the botulinum toxin injections wearing off in his arm.He would like the same injection pattern as last time.He would like to add his left leg to the injection regimen this week.He is hopeful it will help the effectiveness of his stretching regimen. He notes that his left shoulder pain is a limiting agent with regard to left arm motion.He is worried that he is "tearing something" in his left shoulder and would like further evaluation. He continues to work with PT.He did have a fall a few weeks ago when he attempted to ride his daughter's bicycle in the grass.He is able to ride his stationary bicycle at home which he uses for exercise. On exam he has persistent left spastic hemiparesis with left shoulder subluxation.He has no significant active movement in the left upper limb.He has Mod Alonzo 2 spasticity during left elbow extension and supination.There is tenderness on palpation of the posterior left shoulder and pain with left shoulder PROM. Vitals: 12/02/17 1410 BP: 135/77 Pulse: 83 Weight: 75.8 kg (167 lb) PROCEDURE NOTE - Botulinum Toxin Injection Procedure Date: 12/02/2017 Procedure: Botulinum Toxin Injections Indication/ Diagnosis: 1. SpasticityCHEMODENERVATION 2. Left spastic hemiparesis (HCC)CHEMODENERVATION 3. Cerebrovascular accident (CVA) due to thrombosis of right middle cerebral artery (HCC) Prior to beginning the procedure, the risks (pain, bleeding, infection, muscle weakness, allergic reaction, dysphagia/ dyspnea) and benefits (spasticity reduction, pain reduction, improved positioning, improved splint tolerance) were explained and the patient verbally consented to onabotulinumtoxin A injections of the left arm and leg . A written consent form was also completed and signed by the patient. Medication: Onabotulinumtoxin A Lot Number: [id number] Expiration Date: 06/2020 Total Amount Reconstituted: 300 Units Dilution: 1:1 The botulinum toxin was reconstituted in 3 mL of preservative free saline (Lot # [id number], Exp 06/2019) in a 100 Units to 1 mL ratio.A time out was performed to locate and confirm the correct limb for injection.The skin was prepped with alcohol prior to each injection.Audible EMG guidance was used to localize the desired muscles.The below listed amounts of botulinum toxin were injected into the below listed muscles with aspiration prior to each injection.The procedure was well tolerated with minimal bleeding that resolved after brief pressure was applied. Muscles Injected: Left Upper Limb Left Pectoralis Major 25 Units Left Biceps Brachii 25 Units Left Pronator Teres 25 Units Left Flexor Carpi Radialis 37.5 Units Left Flexor Carpi Ulnaris 37.5 Units Left Flexor Digitorum Superficialis 37.5 Units Left Flexor Digitorum Profundus 37.5 Units Left Lower Limb: Left Medial Gastrocnemius 33.3 Units Left Lateral Gastrocnemius 33.3 Units Left Soleus 33.3 Units Total Dose: 300 Units, no botulinum toxin was wasted PLAN: -The patient will be eligible for repeat botulinum toxin injections in 3 months if clinically indicated. -Consider increasing dose in the left biceps for next round of injections. -Continue therapy. -Continue home exercise program with appropriate safety and fall precautions. -Referral placed to my musculoskeletal colleagues, Dr. Ruffin or Dr. Samuels, for consideration of ultrasound guided left shoulder sub-acromial steroid injection for pain control.Patient also interested in further discussion of whether or not an MRI would be a useful diagnostic study to further evaluate his left shoulder pain. Alaina Vazquez M.D. Performing Organization Address City/State/Zipcode Phone Number IN CLINIC from Last 3 Months
--- OUTSIDE RECORDS SUMMARY | 2017-12-26 17:22 | XMS REPORT | Encounter Summary ---
Author Author [facility] Organization [facility] Address Unknown Phone Unavailable Care Team Providers Care Bioinformatics Developer Name Role Phone Nathan Lee MD PCP Encounter Details Date Type Department Care Team Description 12/25/2017 Hospital [facility] Cameron Ruffin MD Arrived Encounter [facility] [address] [place] [address] [place] [address] [phone] Social History Tobacco Use Types Packs/Day Years Used Date Never Smoker Smokeless Tobacco: Never Used Alcohol Use Drinks/Week oz/Week Comments No Sex Assigned at Date Recorded Not on file as of this encounter Functional Status Functional Status Response Date of Assessment Does the patient have a hearing impairment: No 12/25/2017 Does the patient have a visual impairment: Yes 12/25/2017 Does the patient have impaired ambulation: Yes 12/25/2017 Does the patient have an activity of daily living No 12/25/2017 (ADL) impairment: Does the patient have an instrumental activity of No 12/25/2017 daily living (IADL) impairment: Cognitive Status Response Date of Assessment Does the patient have a cognitive impairment: No 12/25/2017 as of this encounter Plan of Treatment Not on fileas of this encounter Procedures Procedure Name Priority Date/Time Associated Diagnosis Comments SHOULDER MIN 2 VIEWS LEFT Routine 12/25/2017 Adhesive capsulitis of Results for this 3:04 PM CDT left shoulder procedure are in the Chronic left shoulder results section. pain in this encounter Visit Diagnoses Not on filein this encounter
--- OUTSIDE RECORDS SUMMARY | 2017-12-26 17:23 | XMS REPORT | Encounter Summary ---
Author Author [facility] Organization [facility] Address Unknown Phone Unavailable Care Team Providers Care Batch Freezer Name Role Phone Nathan Lee MD PCP Reason for Referral * Pain Authorization (Routine) Status Reason Specialty Diagnoses / Referred By Referred To Procedures Contact Contact No Auth Needed Rehabilitation Diagnoses Cameron Ruffin [facility] Adhesive MD [facility] capsulitis of [address] [place], [place] Chronic left [address] [phone] shoulder pain [place], [place] Phone: P [phone] rocedures Phone: [facility] [phone] LARGE JOINT Fax: DRAIN/INJECT [phone] Reason for Visit * Reason Comments Pain * Consult, Test & Treat (Routine) Status Reason Specialty Diagnoses / Referred By Referred To Procedures Contact Contact No Auth Needed Specialty Rehabilitation Diagnoses Israel Vazquez Sp[facility] Rehab Med Services Medicine Chronic left Alaina Cl Required shoulder pain MD [facility] [address] [place] [address] Phone: Fax: Encounter Details Date Type Department Care Team Description 12/25/2017 Office Visit Les VazquezAlaina Adhesive capsulitis of Rehabilitative Medicine MD [facility] left shoulder (Primary Medical Office [address] Dx); [address] [place] [address] Chronic left shoulder [address] [phone] pain; [place] [address] Spastic hemiplegia [phone] S affecting left Cameron fitch MD nondominant side, [address] unspecified etiology [address] (HCC); [place] [address] Decreased range of motion [phone] of left shoulder Social History Tobacco Use Types Packs/Day Years Used Date Never Smoker Smokeless Tobacco: Never Used Alcohol Use Drinks/Week oz/Week Comments No Sex Assigned at Date Recorded Not on file as of this encounter Last Filed Vital Signs Vital Sign Reading Time Taken Blood Pressure 123/81 12/25/2017 2:07 PM CDT Pulse 68 12/25/2017 2:07 PM CDT Temperature - - Respiratory Rate 20 12/25/2017 2:07 PM CDT Oxygen Saturation 94% 12/25/2017 2:07 PM CDT Inhaled Oxygen - - Concentration Weight 75.8 kg (167 lb) 12/25/2017 2:07 PM CDT Height 188 cm (6' 2") 12/25/2017 2:07 PM CDT Body Mass Index 21.44 12/25/2017 2:07 PM CDT in this encounter Functional Status Functional Status [...] impairment: No 12/25/2017 as of this encounter Progress Notes * Cameron Ruffin MD - 12/25/2017 1:45 PM CDT Formatting of this note may be different from the original. [facility] HISTORY AND PHYSICAL Chief Complaint Patient presents with Left Shoulder - Pain Subjective HISTORY OF PRESENT ILLNESS: Mr. Osei is a 42-year-old male with history of stroke and deep vein thrombosis who presents for evaluation treatment of left shoulder pain. Patient is unsure when the pain initially began, but believes this is been since he had a stroke. Temporally, pain is intermittent. Quality pain is sharp. His pain is worse with moving his arm. Pain is better with immobility. He denies radiation. He denies numbness or tingling. He denies weakness. He denies loss of bowel or bladder function. Pain is not worse at night. VAS pain score is rated 9/10. He has not had imaging. Past Medical History: Diagnosis Date DVT (deep venous thrombosis) ([facility]) following traumatic leg fracture. completed 3 month course of warfarin Stroke (HCC) Past Surgical History: Procedure Laterality Date BREAST SURGERY Left mass removed HX HERNIA REPAIR family history includes Stroke in his mother. Social History Social History Marital status: Spouse name: N/A Number of children: 2 Years of education: N/A Occupational History Not on file. Social History Main Topics Smoking status: Never Smoker Smokeless tobacco: Never Used Alcohol use No Drug use: No Sexual activity: Not on file Other Topics Concern Not on file Social History Narrative No narrative on file No Known Allergies Current Outpatient Prescriptions on File Prior to Visit Medication Sig Dispense Refill aspirin 325 mg tablet Take 1 tablet by mouth daily. Take with food. atorvastatin (LIPITOR) 40 mg tablet Take 1 tablet by mouth daily. 30 tablet 1 baclofen (LIORESAL) 20 mg tablet Take 1 tablet by mouth three times daily. 90 tablet 1 fluoxetine (PROZAC) 40 mg capsule Take 1 capsule by mouth daily. 30 capsule 1 gabapentin (NEURONTIN) 300 mg capsule Take 1 capsule by mouth at bedtime daily. (Patient taking differently: Take 300 mg by mouth twice daily.) 30 capsule 1 methocarbamol (ROBAXIN) 750 mg tablet Take 1 tablet by mouth three times daily as needed for Spasms. 60 tablet 3 other medication 1 Dose. Hemp oil 2x day pantoprazole DR (PROTONIX) 40 mg tablet Take 1 tablet by mouth daily. 30 tablet 1 traZODone (DESYREL) 50 mg tablet Take 1 tablet by mouth at bedtime as needed. 90 tablet 3 No current facility-administered medications on file prior to visit. Vitals: 12/25/17 1407 BP: 123/81 Pulse: 68 Resp: 20 SpO2: 94% Weight: 75.8 kg (167 lb) Height: 188 cm (74") Oswestry Total Score:: 12 No Data Recorded Is a controlled substance agreement on file?No Pain Score: Four Body mass index is 21.44 kg/m. Review of Systems Musculoskeletal: Positive for arthralgias. All other systems reviewed and are negative. PHYSICAL EXAM: General: 42 y.o. male appears stated age, in no acute distress HEENT: Normocephalic, atraumatic Neck: No thyroidmegaly Cardiovascular: Well perfused Pulmonary: Unlabored respirations Extremities: No cyanosis, clubbing, or edema Skin: Warm and dry Psychiatric: Appropriate mood and affect Musculoskeletal: Decreased range of motion with left shoulder abduction and external rotation, both passively and actively. Passive range of motion with shoulder abduction is to 45. External rotation to 30. Tender palpation at left supraspinatus and left deltoid. Positive Guy maneuver. I will perform other provocative maneuvers due to hemiplegia. Neurologic: Left upper extremity myotomes are 2/5 on the left and 5/5 on the right. Upper extremity dermatomes are all intact to light touch. Deep tendon reflexes are symmetric at biceps, triceps, and brachioradialis. RADIOGRAPHIC EVALUATION: No imaging to review today. IMPRESSION: 1. Adhesive capsulitis of left shoulder 2. Chronic left shoulder pain 3. Spastic hemiplegia affecting left nondominant side, unspecified etiology (HCC ) 4. Decreased range of motion of left shoulder Mr. Osei is a 42-year-old male with history of right-sided stroke and resultant left spastic hemiplegia, presents with left shoulder pain and decreased range of motion. History and physical examination are consistent with left adhesive capsulitis. PLAN: 1. Lifestyle modification. I encouraged patient to continue active and passive range of motion. We discussed modified wall walking. He will be on a views of his fingers due to weakness, but I do think that the utilizing the wall to help increase support for range of motion would be benefit. 2. Medication. May continue with medications previously prescribed. 3. Therapy. I would encourage continued physical therapy. I think that post injection would provide the most benefit. 4. Interventions. I recommend a left glenohumeral joint injection under ultrasound guidance. I will schedule a [facility]. 5. Follow. Patient to follow-up for procedure. Thank you Dr. Vazquez for the opportunity to take part in the care of this very pleasant patient. Please feel free to call with questions or concerns. in this encounter Plan of Treatment Name Priority Associated Diagnoses Order Schedule [facility] LARGE JOINT DRAIN/INJECT Routine Adhesive capsulitis of 3 Occurrences starting left shoulder 12/25/2017 until Chronic left shoulder 03/26/2018 pain as of this encounter Procedures Procedure Name Priority Date/Time Associated Diagnosis Comments SHOULDER MIN 2 VIEWS LEFT Routine 12/25/2017 Adhesive capsulitis of Results for this 3:04 PM CDT left shoulder procedure are in the Chronic left shoulder results section. pain in this encounter Results * SHOULDER MIN 2 VIEWS LEFT [...] Address City/State/Zipcode Phone Number [facility] in this encounter Visit Diagnoses Diagnosis Adhesive capsulitis of left shoulder - Primary Adhesive capsulitis of shoulder Chronic left shoulder pain Pain in joint, shoulder region Spastic hemiplegia affecting left nondominant side, unspecified etiology (HCC) Decreased range of motion of left shoulder
--- OUTSIDE RECORDS SUMMARY | 2017-12-26 17:23 | XMS REPORT | Encounter Summary ---
Author Author [facility] Organization [facility] Address Unknown Phone Unavailable Care Team Providers Care Sheet Metal Worker Helper Name Role Phone No Pcp, Na PCP Unavailable Nathan Lee MD PCP Reason for Visit * Reason Comments Medication Refill Encounter Details Date Type Department Care Team Description 11/28/2017 Refill [facility] - Alaina Vazquez Rehabilitation Medicine MD [facility] [address] [place] [address] [phone] [place] [address] Social History Tobacco Use Types [...]
--- OUTSIDE RECORDS SUMMARY | 2017-12-26 17:23 | XMS REPORT | Encounter Summary ---
Author Author [facility] Organization [facility] Address Unknown Phone Unavailable Care Team Providers Care Refinery Operator Helper Crude Unit Name Role Phone No Pcp, Na PCP Unavailable Encounter Details Date Type Department Care Team Description 12/02/2017 Orders Only [facility] - Alaina Vazquez Spasticity (Primary Dx) Rehabilitation Medicine MD [facility] [address] [place] [address] [phone] [place] [address] Social History Tobacco Use Types [...] fileas of this encounter Visit Diagnoses Diagnosis Spasticity - Primary Abnormal involuntary movements
--- OUTSIDE RECORDS SUMMARY | 2017-12-26 17:23 | XMS REPORT | Encounter Summary ---
Author Author [facility] Organization [facility] Address Unknown Phone Unavailable Care Team Providers Care Charge Master Specialist Name Role Phone No Pcp, Na PCP Unavailable Reason for Visit * Reason Comments Letter return to driving Encounter Details Date Type Department Care Team Description 11/13/2017 Telephone [facility] - Alaina Vazquez Letter ( return to Rehabilitation Medicine MD Jewel driving) [facility] Medical [address] [place] [address] [phone] [place] [address] Social History Tobacco Use Types [...] Telephone Encounter - Merly Sales MA - 11/13/2017 3:08 PM CDT Spoke with patient about returning to drive. I inform pt that Dr Holloway in her note did not specify if she wanted pt to return to clinic before driving. I also informed him that since the driving report does not show that you have passed he should wait until his next appt to go over new recommendations Mr mckeon was fine with this plan and will discuss eval at next appt Call ended in this encounter Plan of Treatment Not on fileas of this encounter Visit Diagnoses Not on filein this encounter
--- OUTSIDE RECORDS SUMMARY | 2017-12-26 17:23 | XMS REPORT | Encounter Summary ---
Author Author [facility] Organization [facility] Address Unknown Phone Unavailable Care Team Providers Care Lining Layer Name Role Phone No Pcp, Na PCP Unavailable Reason for Referral * Consult, Test & Treat Status Reason Specialty Diagnoses / Referred By Referred To Procedures Contact Contact New Request Specialty Diagnoses Abimaelckx, Services Left spastic Aliana Required hemiparesis MD Jewel ([facility]) [address] impairment [place], [place] Cerebrovascular [address] accident (CVA) Phone: due to [phone] thrombosis of Fax: right middle [phone] cerebral artery (HCC) * Consult, Test & Treat Status Reason Specialty Diagnoses / Referred By Referred To Procedures Contact Contact New Request Specialty Diagnoses Arickx, Services Cerebrovascular Alaina Required accident (CVA) MD Jewel due to [address] right middle [place], [place] cerebral artery [address] (HCC) Phone: Depression, unspecified Fax: depression type [phone] Reason for Visit * Reason Comments Spasticity Encounter Details Date Type Department Care Team Description 09/30/2017 Office Visit [facility] - Alaina Vazquez Left spastic hemiparesis Rehabilitation Medicine MD Jewel ([facility]) (Primary Dx); Ortho and Medical [address] Cognitive impairment; [address] [place] [address] Depression, unspecified [address] [phone] depression type; [place], [place] Cerebrovascular accident [phone] (CVA) due to thrombosis [phone] of right middle cerebral artery (HCC) Social History Tobacco Use Types Packs/Day Years Used Date Never Smoker Smokeless Tobacco: Never Used Alcohol Use Drinks/Week oz/Week Comments No Sex Assigned at Date Recorded Not on file as of this encounter Last Filed Vital Signs Vital Sign Reading Time Taken Blood Pressure 130/76 09/30/2017 2:40 PM CDT Pulse 80 09/30/2017 2:40 PM CDT Temperature - - Respiratory Rate - - Oxygen Saturation - - Inhaled Oxygen - - Concentration Weight 76.2 kg (168 lb) 09/30/2017 2:40 PM CDT Height 188 cm (6' 2") 09/30/2017 2:40 PM CDT Body Mass Index 21.57 09/30/2017 2:40 PM CDT in this encounter Functional Status [...] this encounter Instructions * Patient Instructions - Alaina Vazquez MD - 09/30/2017 2:00 PM CDT This website may have helpful resources: [email or web address] Mood Swings and Depression After a Stroke After a stroke, a person may feel sudden or extreme emotions. Sadness and depression are common. These feelings may be due to damage in the brain. Or they may be a response to the persons awareness of what has happened. Coping with mood swings One common effect of stroke is lability. This problem makes people less able to control their emotions. Lability may cause a sudden mood shift that is out of context with what is going on. A person may suddenly cry or laugh. You can help Stay calm. Accept the behavior and go on with what you were doing. If the person apologizes, acknowledge the behavior as a result of the stroke. Don't criticize. Treatthe person with respect at all times. Dealing with depression A person may feel depressed after having a stroke. This may be due to brain damage. Changes in body image and grieving for lost skills, such as speech or freedom of movement, may also cause depression. You can help Ask the doctor whether medicine can help reduce the depression. You may need to take your loved one to see a psychiatrist or psychologist if he or she has severe depression. Help the person stay active. Play games, watch TV, take a walk, or listen to music together. Ask friends to visit if the person is willing to see them. Don't discount depression by telling the person to cheer up. Date Last Reviewed: 11/06/201619994289-[address] [employer] [place] [address]. All rights reserved. This information is not intended as a substitute for professional medical care. Always follow your healthcare professional's instructions. in this encounter Progress Notes * Alaina Vazquez MD - 09/30/2017 2:00 PM CDT Formatting of this note may be different from the original. Established Clinic Visit Brain Injury Medicine Physical Medicine & Rehabilitation [facility] Date of Service: 09/30/2017 Chief Complaint Patient presents with Spasticity HPI: Thomas Osei is a 41 y.o. male who presents to clinic in follow-up for residual functional deficits after R MCA Stroke in 03/2017. He is accompanied by His who assists with the history. The patient participated in a course of inpatient rehabilitation from 03/28-05/01/2017 and was discharge to home with assistance from his and ongoing outpatient therapy. Plan at Last Appointment: Botulinum Toxin Injections 08/26/2017 Left Upper Limb Left Pectoralis Major 25 Units Left Biceps Brachii 25 Units Left Pronator Teres 25 Units Left Flexor Carpi Radialis 37.5 Units Left Flexor Carpi Ulnaris 37.5 Units Left Flexor Digitorum Superficialis 25 Units Left Flexor Digitorum Profundus 25 Units Total Dose: 200 Units, no botulinum toxin was wasted INTERVAL HISTORY: The patient reports overall good response to botulinum toxin injections. He is however frustrated because he feels that the injections did not help his shoulder much. The pain has migrated in the left shoulder to the back of the shoulder. 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 He does not wish to increase any dosing of the fingers. He does think he could use more medicine in the wrist. He has some ongoing sessions with therapy and the potential to schedule more in the future. Over the last several weeks he has felt a little bit foggy but reports this is overall better in recent days. Approximately 3-4 weeks ago he had worsening motivation and severe depression. This seems to be related to adjustment and frustration with ongoing impairment. He reports that fortunately these feelings have improved recently although he does feel somewhat depressed still. He denies any suicidal ideation. He has started ambulating with a quad cane and left AFO. He is working with his therapist and [facility] on a functional e-stim system for ambulation assistance. He is amenable to botulinum toxin injections to assist with ambulation and left AFO fit. Current Therapies: Physical Therapy: 2 times per week Occupational Therapy: 2 times per week Speech Therapy: 2 times per week Social History/Current Functional Status: Living Situation: lives with ADLs: decreasing amounts of assistance required IADLs: needs assist Mobility: ambulates with a left AFO and a quad cane Review of Systems: Endorses: left shoulder pain, left sided weakness, gait impairment, frustration with continued impairment, depression, balance impairment, "fogginess" Denies: chest pain, shortness of breath, nausea, vomiting, change in bowel/ bladder habits, recent falls, vision change, seizures Past Medical History: Diagnosis Date DVT (deep venous thrombosis) ([facility]) following traumatic leg fracture. completed 3 month course of warfarin Stroke (HCC) Past Surgical History: Procedure Laterality Date BREAST SURGERY Left mass removed HX HERNIA REPAIR Allergies: No Known Allergies Medications: Current Outpatient Prescriptions on File Prior to Visit Medication Sig Dispense Refill aspirin 325 mg tablet Take 1 tablet by mouth daily. Take with food. atorvastatin (LIPITOR) 40 mg tablet Take 1 tablet by mouth daily. 30 tablet 1 baclofen (LIORESAL) 20 mg tablet Take 1 tablet by mouth three times daily. 90 tablet 1 gabapentin (NEURONTIN) 300 mg capsule Take 1 capsule by mouth at bedtime daily. (Patient taking differently: Take 300 mg by mouth twice daily.) 30 capsule 1 methocarbamol (ROBAXIN) 750 mg tablet Take 1 tablet by mouth three times daily as needed for Spasms. [address] (PROTONIX) 40 mg tablet Take 1 tablet by mouth daily. 30 tablet 1 traZODone (DESYREL) 50 mg tablet Take 1 tablet by mouth at bedtime as needed. 90 tablet 3 No current facility-administered medications on file prior to visit. PHYSICAL EXAM: Vitals: 09/30/17 1440 BP: 130/76 Pulse: 80 Weight: 76.2 kg (168 lb) Height: 188 cm (74") GEN: alert and conversant, no acute distress HEAD: normocephalic, atraumatic EYES: Sclera anicteric, conjunctiva not injected; EOMI MOUTH: mucous membranes moist NECK: full AROM CV: limbs warm and well perfused RESP: respirations easy and regular, no respiratory distress ABD: non-distended MSK: limited PROM left ankle during ADF PSYCH: mood and affect congruent, no emotional lability or irritability NEURO: Mental Status: alert and conversant Speech: fluent improved dysarthria Cognition: improved processing speed Cranial Nerves: left facial weakness improved Tone: Modified Fang Scores Upper Limb during Shoulder Abd during Elbow Exten During wrist Ext during Finger Ext During left ADF LEFT 1+ 1+ 2, mild clonus at end range 1+ clonus Motor: Manual Muscle Testing Upper Limb Shoulder Abduction Elbow Flexion Elbow Extension Wrist Extension Radio Host Right 5 5 5 5 5 Left 0 Trace in synergy pattern 0 0 trace Lower Limb Hip Flexion Knee Extension Ankle Dorsiflexion Right 5 5 5 Left 4 5- trace GAIT: ambulates with left flat foot strike with AFO and quad cane ASSESSMENT: Thomas Osei is a 41 y.o. male s/p right MCA Stroke in 03/2017 with persistent left spastic hemiparesis, cognitive-linguistic impairment resulting in ongoing moiblity, ADLs, IADL impairment. He continues to make progress in outpatient therapies. His recent recovery course has been complicated by depression. 1. Left spastic hemiparesis (HCC) AMB REFERRAL FOR DRIVING ASSESSMENT 2. Cognitive impairment AMB REFERRAL FOR DRIVING ASSESSMENT 3. Depression, unspecified depression type AMB REFERRAL TO PSYCHOLOGY 4. Cerebrovascular accident (CVA) due to thrombosis of right middle cerebral artery (HCC) AMB REFERRAL TO PSYCHOLOGY AMB REFERRAL FOR DRIVING ASSESSMENT PLAN: -Continue outpatient PT, OT, ST -Spasticity Management: A. Stretching, splinting, and therapy: -continue PT, OT, left AFO, stretching B. Oral anti-spasticity pharmacologic agents: -continue baclofen 20 mg TID C. Botulinum toxin injections: increase dose to 400 Units as follows Left Pectoralis Major 50 Units Left Biceps Brachii 25 Units Left Pronator Teres 25 Units Left Flexor Carpi Radialis 62.5 Units Left Flexor Carpi Ulnaris 62.5 Units Left Flexor Digitorum Superficialis 25 Units Left Flexor Digitorum Profundus 25 Units Left Gastrocnemius and Soleus Complex 100 Units, divided in 3 sites *25 Units to allocate on date of injection -prescriptions signed for functional electrical stimulation to the left lower limbs -increase fluoxetine to 40 mg daily due to poorly controlled depression -advised patient to get counseling/ psychotherapy due to poorly controlled depression -education on depression after stroke provided -patient not able to return to work at this time due to ongoing physical and cognitive impairments -patient requesting driving evaluation, referral made accordingly, denies seizure activity -resources provided for [facility] Stroke and discussed other community resources *Follow-up in this clinic for next regularly scheduled botulinum toxin injections at 3 month intervals. Alaina Holloway M.D. in this encounter Plan of Treatment Name Priority Associated Diagnoses Order Schedule AMB REFERRAL TO PSYCHOLOGY Routine Cerebrovascular accident Ordered: (CVA) due to thrombosis of right middle cerebral artery (HCC) Depression, unspecified depression type AMB REFERRAL FOR DRIVING ASSESSMENT Routine Left spastic hemiparesis Ordered: 09/30/2017 (HCC) Cognitive impairment Cerebrovascular accident (CVA) due to thrombosis of right middle cerebral artery (HCC) as of this encounter Visit Diagnoses Diagnosis Left spastic hemiparesis (HCC) - Primary Spastic hemiplegia affecting unspecified side Cognitive impairment Unspecified persistent mental disorders due to conditions classified elsewhere Depression, unspecified depression type Cerebrovascular accident (CVA) due to thrombosis of right middle cerebral artery (HCC)
--- OUTSIDE RECORDS SUMMARY | 2017-12-26 17:23 | XMS REPORT | Encounter Summary ---
Author Author [facility] Organization [facility] Address Unknown Phone Unavailable Care Team Providers Care Manager Competitive Intelligence Name Role Phone No Pcp, Na PCP Unavailable Reason for Referral * Consult, Test & Treat (Routine) Status Reason Specialty Diagnoses / Referred By Referred To Procedures Contact Contact No Auth Needed Specialty Rehabilitation Diagnoses Israel Vazquez Spn Rehab Med Services Medicine Chronic left Alaina Cl Required shoulder pain MD Jewel [facility] [address] [address] [place] [address] Phone: Fax: * Consult, Test & Treat (Routine) Status Reason Specialty Diagnoses / Referred By Referred To Procedures Contact Contact Closed Specialty Sports Medicine Diagnoses Taylor, Nathan Samuels, DO Services Chronic left Alaina [address] Required shoulder pain MD Jewel [place], [place] [address] [address] [address] Phone: [place], [place] [phone] Reason for Visit * Reason Comments Follow Up botulinum toxin injections; left shoulder pain Encounter Details Date Type Department Care Team Description 12/02/2017 Procedure visit [facility] - Alaina Vazquez Spasticity (Primary Dx); Rehabilitation Medicine MD Jewel Left spastic hemiparesis Ortho and Medical [address] (HCC); [address] [place] [address] Cerebrovascular accident [address] [phone] (CVA) due to thrombosis [place] of right middle cerebral [address] artery (HCC); [phone] Chronic left shoulder pain Social History Tobacco Use Types Packs/Day Years Used Date Never Smoker Smokeless Tobacco: Never Used Alcohol Use Drinks/Week oz/Week Comments No Sex Assigned at Date Recorded Not on file as of this encounter Last Filed Vital Signs Vital Sign Reading Time Taken Blood Pressure 135/77 12/02/2017 2:10 PM CDT Pulse 83 12/02/2017 2:10 PM CDT Temperature - - Respiratory Rate - - Oxygen Saturation - - Inhaled Oxygen - - Concentration Weight 75.8 kg (167 lb) 12/02/2017 2:10 PM CDT Height - - Body Mass Index 21.44 12/02/2017 2:10 PM CDT in this encounter Functional Status [...] impairment: Yes 03/28/2017 as of this encounter Procedure Notes * Alaina Vazquez MD - 12/02/2017 2:00 PM CDT Associated Order(s): CHEMODENERVATION Procedure(s): MN CHEMODENERVATION 1 EXTREMITY EA ADDL 1-4 MUSCLE; MN CHEMODENERVATION 1 EXTREMITY 5 OR MORE MUSCLES; MN NEEDLE EMG GUID W/ CHEMODENERVATION Pre-Procedure Diagnose(s): Spasticity; Left spastic hemiparesis (HCC) Post-Procedure Diagnose(s): Spasticity; Left spastic hemiparesis (HCC) Formatting of this note may be different from the original. Neurorehabilitation Medicine - Procedure Visit Physical Medicine & Rehabilitation [facility] Date of Service: 12/02/2017 Date of last botulinum toxin injection (any body site): 08/26/2017 Complications or side effects with last injections: No Current or recent fevers, chills, cough, difficulty breathing: No Currently taking antibiotics: No Brief History/ Exam: Patient reports that in the last 2 weeks he has really noticed the botulinum toxin injections wearing off in his arm. He would like the same injection pattern as last time. He would like to add his left leg to the injection regimen this week. He is hopeful it will help the effectiveness of his stretching regimen. He notes that his left shoulder pain is a limiting agent with regard to left arm motion. He is worried that he is "tearing something" in his left shoulder and would like further evaluation. He continues to work with PT. He did have a fall a few weeks ago when he attempted to ride his daughter's bicycle in the grass. He is able to ride his stationary bicycle at home which he uses for exercise. On exam he has persistent left spastic hemiparesis with left shoulder subluxation. He has no significant active movement in the left upper limb. He has Mod Alonzo 2 spasticity during left elbow extension and supination. There is tenderness on palpation of the posterior left shoulder and pain with left shoulder PROM. Vitals: 12/02/17 1410 BP: 135/77 Pulse: 83 Weight: 75.8 kg (167 lb) PROCEDURE NOTE - Botulinum Toxin Injection Procedure Date: 12/02/2017 Procedure: Botulinum Toxin Injections Indication/ Diagnosis: 1. Spasticity CHEMODENERVATION 2. Left spastic hemiparesis (HCC) CHEMODENERVATION 3. Cerebrovascular accident (CVA) due to thrombosis [...] the patient. Medication: Onabotulinumtoxin A Lot Number: [id number] Expiration Date: 06/2020 Total Amount Reconstituted: 300 Units Dilution: 1:1 The botulinum toxin was reconstituted in 3 mL of preservative free saline (Lot # [id number], Exp 06/2019) in a 100 Units to 1 mL ratio. A time out was performed to locate and confirm the correct limb for injection. The skin was prepped with alcohol prior to each injection. Audible EMG guidance was used to localize the desired muscles. The below listed amounts of botulinum toxin were injected into the below listed muscles with aspiration prior to each injection. The procedure was well tolerated with minimal bleeding [...] left shoulder sub-acromial steroid injection for pain control. Patient also interested in further discussion of whether or not an MRI would be a useful diagnostic study to further evaluate his left shoulder pain. Alaina Vazquez M.D. in this encounter Plan of Treatment Name Priority Associated Diagnoses Order Schedule AMB REFERRAL TO PHYSICAL MEDICINE REHAB Routine Chronic left shoulder Ordered: 12/02/2017 pain AMB REFERRAL TO PHYSICAL MEDICINE REHAB Routine Chronic left shoulder Ordered: 12/02/2017 pain as of this encounter Procedures Procedure Name Priority Date/Time Associated Diagnosis Comments MN CHEMODENERVATION 1 Routine 12/02/2017 Left spastic hemiparesis Results for this EXTREMITY EA ADDL 1-4 2:00 PM CDT ([facility]) procedure are in the MUSCLE Spasticity results section. MN CHEMODENERVATION 1 Routine 12/02/2017 Left spastic hemiparesis Results for this EXTREMITY 5 OR MORE 2:00 PM CDT ([facility]) procedure are in the MUSCLES Spasticity results section. MN NEEDLE EMG GUID Routine 12/02/2017 Left spastic hemiparesis Results for this W/CHEMODENERVATION 2:00 PM CDT ([facility]) procedure are in the Spasticity results section. in this encounter Results * CHEMODENERVATION (12/02/2017 2:00 PM) Narrative Performed At Alaina Vazquez MD 12/02/20173:40 PM IN CLINIC Neurorehabilitation Medicine - Procedure Visit Physical Medicine & Rehabilitation [facility] Date of Service: 12/02/2017 Date of [...] the patient. Medication: Onabotulinumtoxin A Lot Number: [id number] Expiration Date: 06/2020 Total Amount Reconstituted: 300 Units Dilution: 1:1 The botulinum toxin was reconstituted in 3 mL of preservative free saline (Lot # [id number], Exp 06/2019) in a 100 Units to [...] Organization Address City/State/Zipcode Phone Number IN CLINIC in this encounter Visit Diagnoses Diagnosis Spasticity - Primary Abnormal involuntary movements Left spastic hemiparesis (HCC) Spastic hemiplegia affecting unspecified side Cerebrovascular accident (CVA) due to thrombosis of right middle cerebral artery (HCC) Chronic left shoulder pain Pain in joint, shoulder region Administered Medications Medication Order MAR Action Action Date Dose Rate Site botulinum toxin A (BOTOX) injection 200 Given 12/02/2017 300 Units Other Units 14:51 CDT 200 Units, Intramuscular, ONCE, 1 dose, 12/02/17 at 0915 in this encounter
--- OUTSIDE RECORDS SUMMARY | 2017-12-26 17:24 | XMS REPORT | Continuity of Care Document ---
Author Author [facility] Organization [facility] Address Unknown Phone Unavailable Allergies Active Description Code Type Severity Reaction Onset Reported/Identified Relationship to Patient Clinical Status Yes No Known Drug Allergies [id number] Drug Allergy Unknown N/A 12/28/2009 Medications There [...] PERSONAL HISTORY OF OTHER DISEASES OF TH 07/25/2017 ALFREDO SU MD, Ot E78.5 HYPERLIPIDEMIA, UNSPECIFIED 07/25/2017 ALFREDO SU MD, Ot I48.0 PAROXYSMAL ATRIAL FIBRILLATION 07/25/2017 ALFREDO SU MD, Ot I63.9 CEREBRAL INFARCTION, UNSPECIFIED 07/25/2017 ALFREDO SU MD, Ot K21.9 GASTRO-ESOPHAGEAL REFLUX DISEASE WITHOUT 07/25/2017 ALFREDO SU MD, Ot Z86.718 PERSONAL HISTORY OF OTHER VENOUS THROMBO 07/25/2017 ALFREDO SU MD, Ot E78.5 HYPERLIPIDEMIA, UNSPECIFIED 07/25/2017 ALFREDO SU MD, Ot I48.0 PAROXYSMAL ATRIAL FIBRILLATION 07/25/2017 ALFREDO SU MD, Ot I63.9 CEREBRAL INFARCTION, UNSPECIFIED 07/25/2017 ALFREDO SU MD, Ot K21.9 GASTRO-ESOPHAGEAL REFLUX DISEASE WITHOUT 07/25/2017 ALFREDO SU MD, Ot Z86.718 PERSONAL HISTORY OF OTHER VENOUS THROMBO 08/14/2017 ALFREDO SU MD, Ot E78.5 HYPERLIPIDEMIA, UNSPECIFIED 08/14/2017 ALFREDO SU MD, Ot I48.0 PAROXYSMAL ATRIAL FIBRILLATION 08/14/2017 ALFREDO SU MD, Ot I63.9 CEREBRAL INFARCTION, UNSPECIFIED 08/14/2017 ALFREDO SU MD, Ot K21.9 GASTRO-ESOPHAGEAL REFLUX DISEASE WITHOUT 08/14/2017 ALFREDO SU MD, Ot Z86.718 PERSONAL HISTORY OF OTHER VENOUS THROMBO Procedures There is no data. Results Test [...] Status Pt. Type Provider Facility Loc./Unit Complaint [id number] 10/11/2016 12:01:17 10/11/2016 23:59:59 CLS Outpatient Raina Foley [id number] 07/31/2016 09:24:08 07/31/2016 23:59:59 CLS Outpatient Nathan Childers [id number] 07/24/2017 14:55:00 07/24/2017 23:59:59 CLS Outpatient GEORGES RANGEL, ALFREDO Solis [facility] [id number] 04/25/2017 15:20:00 04/25/2017 23:59:59 CLS Preadmit OTHER, UNLISTED [facility] REHAB CVA [id number] 03/20/2017 07:13:00 03/20/2017 09:28:00 DIS Emergency ELY RANGEL, ANTHONY [place] [facility] ER POSS STROKE [id number] 11/11/2013 14:18:00 11/11/2013 23:59:59 CLS 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
--- NOTE | 2017-12-26 17:43 | ED Neurological Problem ---
General Stated Complaint: LOSS OF CONSCIOUSNESS,POSS SEIZURE,HX OF STROKE Source: patient Exam Limitations: no limitations (KATLYN ENGLE APRN) History of Present Illness Date Seen by Provider: Dec 26, 2017 Time Seen by Provider: 17:38 Initial Comments To ER with reports of loss of consciousness and left arm shaking. This began this morning at about 11 AM when he got up to have a bowel movement. He was sitting on the toilet when he awakened and found himself to be slumped forward with the right side of his head leaning on the toilet paper gutierrez and shaking in his left arm which is is hemiplegic side. Unsure why he lost consciousness. He had an acute infarct secondary to a right MCA (M2) occlusion on March 202016. He was seen here for this, given thrombolytics and flown to the [facility]. His residual deficits include a cognitive processing delay , hemiplegia of the left side. At this time his only new symptoms are that he feels "off" which she describes as "foggy" which he states is in intermittent problem since the stroke and states "I don't trust myself walking like my perception is off". Since 11 AM he has had no residual unusual twitching or movements of his left arm. He denies headache. He denies any other symptoms. His stroke was cryptogenic in nature, he's since had an implanted link device as paroxysmal A. fib was considered a possible etiology. His only anticoagulant is aspirin. Timing/Duration: 4-6 hours Associated Symptoms: No fatigue, No fever/chills, No nausea/vomiting; trouble walking (KATLYN ENGLE APRN) Allergies and Home Medications Allergies Coded Allergies: No Known Drug Allergies (Unverified , 12/28/09) Home Medications Levetiracetam 500 Mg Tablet, 500 MG PO BID PRN Prescribed by: ANTHONY PANDEY on 12/26/171957 Patient Home Medication List Home Medication List Reviewed: Yes (KATLYN ENGLE APRN) Home Medication List Reviewed: Yes (ANTHONY GRAVES MD) Review of Systems Review of Systems Constitutional: see HPI Eyes: No Symptoms Reported Ears, Nose, Mouth, Throat: no symptoms reported Respiratory: no symptoms reported Cardiovascular: no symptoms reported Genitourinary: no symptoms reported Musculoskeletal: see HPI Skin: no symptoms reported Psychiatric/Neurological: See HPI, Cognitive Dysfunction, Other ("foggy") Endocrine: No Symptoms Reported Hematologic/Lymphatic: No Symptoms Reported (KATLYN ENGLE APRN) Past Wcovsrl-Yfgmoo-Tttzqq Hx Patient Social History Recent Foreign Travel: No Contact w/Someone Who Travel: No Recent Hopitalizations: No (KATLYN ENGLE APRN) Past Medical History Surgeries: Yes (cyst removed from chest) Abdominal Respiratory: No Cardiac: Yes Deep Vein Thrombosis Neurological: No Reproductive Disorders: No Genitourinary: No Gastrointestinal: No Musculoskeletal: No Endocrine: Yes (hypo-testosterone) HEENT: No Cancer: No Psychosocial: No Integumentary: No Blood Disorders: No (KATLYN ENGLE APRN) Neurological: Yes Stroke (ANTHONY GRAVES MD) Physical Exam Vital Signs Vital Signs - First Documented 12/26/17 17:22 Temp 98.9 Pulse 75 Resp 17 B/P (MAP) 123/87 (99) Pulse Ox 96 O2 Delivery Room Air (ANTHONY GRAVES MD) Vital Signs Capillary Refill : (KATLYN ENGLE APRN) Height, Weight, BMI Height: 6'2.00" Weight: 168lbs. 0.0oz. 76.983294th; 21.6 BMI Method:Stated General Appearance: WD/WN, no apparent distress HEENT: PERRL/EOMI, normal ENT inspection, TMs normal Neck: non-tender, full range of motion Respiratory: normal breath sounds, no respiratory distress, no accessory muscle use Cardiovascular: regular rate, rhythm, no murmur Gastrointestinal: normal bowel sounds, non tender, soft Extremities: other (left leg in AFO brace. ) Neurologic/Psychiatric: alert, normal mood/affect, oriented x 3 Crainal Nerves: normal hearing, normal speech, PERRL, other (He is from [facility] so he does have an accent. ) Coordination/Gait: abnormal gait Motor/Sensory: weak motor strength LUE, weak motor strength LLE Skin: normal color, warm/dry (KATLYN ENGLE APRN) Stroke NIH Stroke Scale Assessment Gaze: Partial Gaze Palsy (1), Total: 1 Stroke Thrombolytic Exclusion Age 18 or Over: Yes Intracranial Neoplasm/Aneurysm: No (KATLYN ENGLE APRN) Progress/Results/Core Measures Results/Orders Lab Results Laboratory Tests Test 12/26/17 17:35 12/26/17 17:58 12/26/17 19:24 Range/Units White Blood Count 15.3 H 4.3-11.0 10^3/uL Red Blood Count 5.14 4.35-5.85 10^6/uL Hemoglobin 16.9 13.3-17.7 G/DL Hematocrit 46 40-54 % Mean Corpuscular Volume 89 80-99 FL Mean Corpuscular Hemoglobin 33 25-34 PG Mean Corpuscular Hemoglobin Concent 37 H 32-36 G/DL Red Cell Distribution Width 12.6 10.0-14.5 % Platelet Count 291 130-400 10^3/uL Mean Platelet Volume 10.1 7.4-10.4 FL Neutrophils (%) (Auto) 80 H 42-75 % Lymphocytes (%) (Auto) 15 12-44 % Monocytes (%) (Auto) 5 0-12 % Eosinophils (%) (Auto) 0 0-10 % Basophils (%) (Auto) 0 0-10 % Neutrophils # (Auto) 12.3 H 1.8-7.8 X 10^3 Lymphocytes # (Auto) 2.3 1.0-4.0 X 10^3 Monocytes # (Auto) 0.8 0.0-1.0 X 10^3 Eosinophils # (Auto) 0.0 0.0-0.3 10^3/uL Basophils # (Auto) 0.0 0.0-0.1 10^3/uL Neutrophils % (Manual) 72 % Lymphocytes % (Manual) 21 % Monocytes % (Manual) 5 % Eosinophils % (Manual) 0 % Basophils % (Manual) 0 % Band Neutrophils 2 % Blood Morphology Comment NORMAL Prothrombin Time 13.9 12.2-14.7 SEC INR Comment 1.1 0.8-1.4 Activated Partial Thromboplast Time 26 24-35 SEC D-Dimer 0.96 H 0.00-0.49 UG/ML Sodium Level 139 135-145 MMOL/L Potassium Level 3.6 3.6-5.0 MMOL/L Chloride Level 105 98-107 MMOL/L Carbon Dioxide Level 24 21-32 MMOL/L Anion Gap 10 5-14 MMOL/L Blood Urea Nitrogen 17 7-18 MG/DL Creatinine 0.84 0.60-1.30 MG/DL Estimat Glomerular Filtration Rate > 60 BUN/Creatinine Ratio 20 Glucose Level 133 H 70-105 MG/DL Calcium Level 9.5 8.5-10.1 MG/DL Corrected Calcium 9.3 8.5-10.1 MG/DL Magnesium Level 2.4 1.8-2.4 MG/DL Total Bilirubin 0.8 0.1-1.0 MG/DL Aspartate Amino Transf (AST/SGOT) 25 5-34 U/L Alanine Aminotransferase (ALT/SGPT) 58 H 0-55 U/L Alkaline Phosphatase 64 40-136 U/L Total Creatine Kinase 242 H 30-200 U/L Troponin I < 0.30 <0.30 NG/ML C-Reactive Protein High Sensitivity 0.06 0.00-0.50 MG/DL Total Protein 7.7 6.4-8.2 GM/DL Albumin 4.3 3.2-4.5 GM/DL Glucometer 122 H 70-110 MG/DL Urine Color YELLOW Urine Clarity CLEAR Urine pH 6.5 5-9 Urine Specific [place] 1.015 L 1.016-1.022 Urine Protein NEGATIVE NEGATIVE Urine Glucose (UA) NEGATIVE NEGATIVE Urine Ketones NEGATIVE NEGATIVE Urine Nitrite NEGATIVE NEGATIVE Urine Bilirubin NEGATIVE NEGATIVE Urine Urobilinogen 4 H NORMAL MG/DL Urine Leukocyte Esterase 1+ H NEGATIVE Urine RBC (Auto) NEGATIVE NEGATIVE Urine RBC NONE /HPF Urine WBC 0-2 /HPF Urine Crystals NONE /LPF Urine Bacteria NONE /HPF Urine Casts NONE /LPF Urine Mucus SMALL H /LPF Urine Culture Indicated NO (ANTHONY GRAVES MD) My Orders Orders - ANTHONY GRAVES MD Creatine Kinase (12/26/17 18:18) Hs C Reactive Protein (12/26/17 18:18) Chest 1 View, Ap/Pa Only (12/26/17 18:21) Magnesium (12/26/17 18:25) Ketorolac Injection (Toradol Injection) (12/26/17 19:15) Levetiracetam Tablet (Keppra Tablet) (12/26/17 19:15) (ANTHONY GRAVES MD) Medications Given in ED Current Medications Medications Dose Ordered Sig/Troy Route Start Time Stop Time Status Last Admin Dose Admin Ketorolac Tromethamine 15 mg ONCE ONCE IVP 12/26/17 19:15 12/26/17 19:16 DC 12/26/17 19:28 15 MG Levetiracetam 500 mg ONCE ONCE PO 12/26/17 19:15 12/26/17 19:16 DC 12/26/17 19:28 500 MG (ANTHONY GRAVES MD) Vital Signs/I&O 12/26/17 12/26/17 17:22 20:00 Temp 98.9 Pulse 75 57 Resp 17 18 B/P (MAP) 123/87 (99) 126/83 Pulse Ox 96 94 O2 Delivery Room Air Room Air (ANTHONY GRAVES MD) Progress Progress Note #1: Time: 18:43 Progress Note Care of this patient was transitioned to me from Katlyn Engle APRN, at 17:55. I have personally interviewed and examined the patient and his . Patient reports sitting on the stool at around 11:00 when his left arm suddenly began to convulse in the large violent movements to the extent and even went over his head. This is unusual as he does not have any involuntary movements on a normal basis and is generally nearly flaccid in the left upper extremity. He could not stop her control the movements. Patient then had a lapse of time and woke with his face pressed against the toilet paper gutierrez. He does have a bruise and some soreness on the cheek just below the right eye. Patient also complains of neck pain and has tenderness just left of the cervical spine on the left. A c-collar was placed during my assessment. Patient has had no prior seizure like activity. He does report some occasional twitching of the left leg in the night. He reported having headaches the past 2 mornings but did not have a headache this morning. I contacted Dr. Wylie, stroke neurologist at [facility]. He and I agree that symptoms sound suspicious for a "anniversary seizure." The seizure likely started as a focal seizure and then became generalized. Dr. Wylie agreed with obtaining CT. Unless there were findings on the CT that suggested need for clarification with MRI, he did not recommend following the CT with an MRI. Patient does have a leukocytosis but no other signs or symptoms of acute infectious illness. Chest x-ray was obtained and appears normal. UA will also be obtained. The leukocytosis etiology will further be assessed by obtaining a CRP and CK to determine if it appears infectious or related to physiologic stress. My exam is as follows: Gen.: Alert, oriented, no acute distress HEENT: normocephalic, bruising and tenderness just below the right eye, mucous membranes moist, extraocular movements intact Heart: Regular rate and rhythm without murmur Lungs: Clear to auscultation bilaterally with normal effort Neuro: Alert, oriented, chronic unchanged weakness in the left lower and left upper extremities. Sensation intact. Subtle facial droop on the left. Progress Note #2: Time: 19:48 Progress Note No source of infection was found. CRP was unremarkable. Patient was given oral Keppra 500 mg and IV Toradol for pain management. He was dismissed in stable condition. (ANTHONY GRAVES MD) Initial ECG Impression Date: Dec 26, 2017 Initial ECG Impression Time: 17:33 Initial ECG Rate: 67 Initial ECG Rhythm: Normal Sinus Initial ECG Intervals: Normal Initial ECG Impression: Normal (KATLYN ENGLE APRN) Diagnostic Imaging Diagonstic Imaging: Xray Plain Films/CT/US/NM/MRI: chest Comments Chest x-ray viewed by me and report reviewed. See report below: NAME: SVEN MICHELE [facility] REC#: [id number] PT STATUS: REG ER : 1975 PHYSICIAN: ANTHONY GRAVES MD ADMIT DATE: 12/26/17/ER Draft Date of Exam:12/26/17 CHEST 1 VIEW, AP/PA ONLY INDICATION: Seizure-like activity. FINDINGS: A loop recorder overlies the left chest. The lungs are clear. The heart size and vascularity are normal. There is no effusion or pneumothorax. IMPRESSION: No acute-appearing abnormality. Dictated on workstation # [id number] Dict: 12/26/17 1837 Trans: 12/26/17 1843 [id number] Interpreted by: LOBITO ROSA Diagonstic Imaging: CT Plain Films/CT/US/NM/MRI: c-spine, head Comments CT head and cervical spine viewed by me and report reviewed. See report below: (ANTHONY GRAVES MD) Departure Impression Primary Impression: Syncopal episodes Qualified Codes: R55 - Syncope and collapse Additional Impressions: Seizure-like activity Leukocytosis Qualified Codes: D72.829 - Elevated white blood cell count, unspecified Neck pain Disposition: 01 HOME, SELF-CARE Condition: Improved Departure-Patient Inst. Decision time for Depature: 19:14 (ANTHONY GRAVES MD) Referrals: EUSEBIA DEAL MD (PCP/Family) Primary Care Physician Patient Instructions: Seizures Add. Discharge Instructions: Start Keppra as prescribed for seizure prevention. Please place a call into your neurologist tomorrow for follow-up instructions. Return to care if you have any further problems or concerns. Drink plenty of clear liquids. You may take ibuprofen up to 600 mg every 6 hours as needed for pain. Add Tylenol (acetaminophen) up to 1000 mg every 6 hours as needed for additional pain relief. Scripts Levetiracetam (Keppra) 500 Mg Tablet 500 MG PO BID PRN, #60 TAB Prov: ANTHONY GRAVES MD 12/26/17 Copy Copies To 1: EUSEBIA DEAL MD, PETER J APRN Dec 26, 2017 17:43 ANTHONY GRAVES MD Dec 26, 2017 18:50
[2017-12-26 17:45] LABS: BASOPHILS % (AUTO) 0 % (0-10); EOSINOPHILS % (AUTO) 0 % (0-10); HEMATOCRIT 46 % (40-54); HEMOGLOBIN 16.9 G/DL (13.3-17.7); LYMPHOCYTES # (AUTO) 2.3 X 10^3 (1.0-4.0); LYMPHOCYTES % (AUTO) 15 % (12-44); MEAN CORPUSCULAR HEMOGLOBIN 33 PG (25-34); MEAN CORPUSCULAR HGB CONC 37 G/DL (32-36); MEAN CORPUSCULAR VOLUME 89 FL (80-99); MEAN PLATELET VOLUME 10.1 FL (7.4-10.4); MONOCYTES # (AUTO) 0.8 X 10^3 (0.0-1.0); MONOCYTES % (AUTO) 5 % (0-12); NEUTROPHILS # (AUTO) 12.3 X 10^3 (1.8-7.8); NEUTROPHILS % (AUTO) 80 % (42-75); PLATELET COUNT 291 10^3/uL (130-400); RED BLOOD COUNT 5.14 10^6/uL (4.35-5.85); RED CELL DISTRIBUTION WIDTH 12.6 % (10.0-14.5); WHITE BLOOD COUNT 15.3 10^3/uL (4.3-11.0)
[2017-12-26 18:02] LABS: FIBRIN DEGRADATION PRODUCTS 0.96 UG/ML (0.00-0.49); INR 1.1 (0.8-1.4); PROTHROMBIN TIME PATIENT 13.9 SEC (12.2-14.7)
[2017-12-26 18:03] LABS: ALANINE AMINOTRANSFERASE 58 U/L (0-55); ALBUMIN 4.3 GM/DL (3.2-4.5); ALKALINE PHOSPHATASE 64 U/L (40-136); BILIRUBIN,TOTAL 0.8 MG/DL (0.1-1.0); BUN/CREATININE RATIO 20; CALCIUM 9.5 MG/DL (8.5-10.1); CARBON DIOXIDE 24 MMOL/L (21-32); CHLORIDE 105 MMOL/L (98-107); CREATININE SERUM 0.84 MG/DL (0.60-1.30); GFR ESTIMATED > 60; GLUCOSE 133 MG/DL (70-105); POTASSIUM 3.6 MMOL/L (3.6-5.0); SODIUM 139 MMOL/L (135-145); TOTAL PROTEIN 7.7 GM/DL (6.4-8.2)
[2017-12-26] MEDS ORDERED: ATOR40TA70 (18:03)
[2017-12-26] MEDS ORDERED: GABA-488 (18:03)
[2017-12-26] MEDS ORDERED: UBID10CA5 PO (18:03)
[2017-12-26] MEDS ORDERED: METH750T3 (18:03)
[2017-12-26] MEDS ORDERED: PANT40TA3 (18:03)
[2017-12-26] MEDS ORDERED: OMEG-160 PO (18:03)
[2017-12-26] MEDS ORDERED: NIAC500T24 PO (18:03)
[2017-12-26] MEDS ORDERED: FLUO40CA (18:03)
[2017-12-26] MEDS ORDERED: BACL20TA (18:03)
[2017-12-26] MEDS ORDERED: TRAZ-189 (18:03)
[2017-12-26 18:09] LABS: BAND NEUTROPHILS 2 %; BASOPHILS % (MANUAL) 0 %; EOSINOPHILS % (MANUAL) 0 %; LYMPHOCYTES % (MANUAL) 21 %; MONOCYTES % (MANUAL) 5 %; NEUTROPHILS % (MANUAL) 72 %; RBC MORPH NORMAL
--- NOTE | 2017-12-26 18:44 | Diagnostic Imaging Report ---
INDICATION: Seizure-like activity. FINDINGS: A loop recorder overlies the left chest. The lungs are clear. The heart size and vascularity are normal. There is no effusion or pneumothorax. IMPRESSION: No acute-appearing abnormality. Dictated by: Dictated on workstation # [id number]
--- NOTE | 2017-12-26 18:59 | Diagnostic Imaging Report ---
CLINICAL INDICATION: Possible seizure this morning. Patient has head neck pain. Patient has history of stroke and left-sided weakness. EXAM: Head CT without IV contrast. Axial CT scan of the cervical spine with sagittal and coronal reformations. COMPARISON: CT angiogram of the head/neck dated 03/20/2017. FINDINGS: Head CT: There is interval development of a moderate-sized chronic cerebral infarct involving the lateral right frontal lobe/lateral superior right temporal lobe, right basal ganglia, right insular region and anterior aspect of the right parietal lobe. There is mild ex vacuo dilation of the right lateral ventricle. There is no brain herniation or midline shift. There is no CT evidence of interval acute cerebral infarct. There is no intracranial hemorrhage. There is no hydrocephalus. The remainder of the brain parenchyma appears appropriate for patient's age. Basal cisterns are unremarkable. The extracranial soft tissue, skull, and orbits are unremarkable. Paranasal sinuses are clear. Temporal bone structures show no significant abnormality. Cervical spine: There is no acute cervical spine fracture or dislocation. There is slight excessive lordosis of the lower cervical spine at the C6-C7 level. There is no significant bony central canal or neuroforaminal narrowing. The neck soft tissue structures show no significant abnormality. Visualized upper lung villatoro are clear. IMPRESSION: 1: There is no CT evidence of acute intracranial process. 2: There is interval development of a moderate-sized chronic cerebral infarct involving the right cerebral hemisphere. 3: There is no acute cervical spine fracture or dislocation. Dictated by: Dictated on workstation # [id number]
[2017-12-26] MEDS ORDERED: LEVETIRACETAM 500 MG (KEPPRA) TAB PO ONE (19:15)
[2017-12-26] MEDS ORDERED: KETOROLAC 30 MG/ML VIAL IVP ONE (19:15)
[2017-12-26] MEDS ORDERED: LEVE500T99 PO ×2 (19:16→19:58)
[2017-12-26 19:32] LABS: BILIRUBIN,URINE NEGATIVE (NEGATIVE); CLARITY,URINE CLEAR; COLOR,URINE YELLOW; GLUCOSE, URINE (UA) NEGATIVE (NEGATIVE); KETONES,URINE NEGATIVE (NEGATIVE); LEUKOCYTE ESTERASE ,URINE 1+ (NEGATIVE); NITRITE,URINE NEGATIVE (NEGATIVE); PH,URINE 6.5 (5-9); PROTEIN,URINE NEGATIVE (NEGATIVE); UROBILINOGEN,URINE 4 MG/DL (NORMAL)
[2017-12-26 19:41] LABS: WBC,URINE 0-2 /HPF
[2017-12-26 20:00] VITALS: BP 126/83
== END 2017-12-26 20:00 | disposition home or self-care (01) ==
LOC: EDUNIT# 17:18 → ER 17:19
DX: R55 Syncope and collapse (principal); R25.8 Other abnormal involuntary movements; D72.829 Elevated white blood cell count, unspecified; M54.2 Cervicalgia; Z86.73 Personal history of transient ischemic attack (TIA), and cerebral infarction without residual deficits; Z79.82 Long term (current) use of aspirin; Z86.718 Personal history of other venous thrombosis and embolism
CPT/HCPCS: 36415; 70450; 71045; 72125; 80053; 81000; 82550; 82962; 83735; 84484; 85007; 85027; 85379; 85610; 85730; 86141; 93005; 93041; 96374

== ENCOUNTER 2017-12-31 12:40 | Day surgery (SDC) | payer BC ==
[2017-12-31] VITALS (8 sets, daily range): BP systolic 119–143; BP diastolic 72–91
[~2017-12-31] VITALS: Ht 188 cm; Wt 72.6 kg
[~2017-12-31 12:40] MED LIST changes: -CEFU500T63 PO; -OXYC1TAB87 PO
[2017-12-31] MEDS ORDERED: NS IV 1000 ML 1,000 ML IV ONE (12:43)
[2017-12-31] MEDS ORDERED: HEParin (CATH LAB) 1,000 ML IV ONE (12:44)
[2017-12-31] MEDS ORDERED: LIDOCAINE 1% INJ 20 ML 20 ML VIAL ONE (12:44)
--- OUTSIDE RECORDS SUMMARY | 2017-12-31 12:44 | XMS REPORT | Encounter Summary ---
Author Author [facility] Organization [facility] Address Unknown Phone Unavailable Care Team Providers Care Metal Lather Name Role Phone Nathan Lee MD PCP Encounter Details Date Type Department Care Team Description 12/31/2017 Documentation Cameron Felder MD Rehabilitative Medicine [address] [place] [address] [place] [address] [place] [address] [phone] Social History Tobacco Use Types Packs/Day Years [...]
--- OUTSIDE RECORDS SUMMARY | 2017-12-31 12:44 | XMS REPORT | Clinical Summary ---
Author Author [facility] Organization [facility] Address Unknown Phone Unavailable Care Team Providers Care Territory Sales Professional Name Role Phone Nathan Lee MD PCP Source Comments Some departments are not documenting in the electronic medical record. If you do not see the information that you expected, contact Release of Information in the Health Information Management department at [phone] for further assistance in locating additional records.[facility] Allergies No Known Allergies Current Medications Prescription [...] of clots or miscarraiges - Presented to [facility] with R MCA artery thrombosis - Hematology was consulted while inpatient and performed thrombophilia workup - Activated Protein C, PNH flow, JAK2, BCRABL, Prothrombin gene mutation, [id number], anti cardiolipin, and lupus anticoagulant all negative [...] Encounters Date Type Specialty Care Team Description 12/31/2017 Documentation Rehabilitation Medicine Cameron Ruffin MD 12/27/2017 Orders Only Rehabilitation Medicine Cameron Ruffin MD Chronic left shoulder pain (Primary Dx); Adhesive capsulitis of left shoulder 12/27/2017 Telephone Rehabilitation Medicine Cameron Ruffin MD Care Coordination 12/25/2017 Hospital Radiology Cameron Ruffin MD Arrived Encounter 12/25/2017 Office Visit Rehabilitation Medicine Alaina Vazquez Adhesive capsulitis of MD Jewel left shoulder (Primary RuffinCameron MD Dx); Chronic left shoulder pain; Spastic hemiplegia affecting left nondominant side, unspecified etiology (HCC); Decreased range of motion of left shoulder 12/02/2017 Procedure visit Rehabilitation Medicine Alaina Vazquez Spasticity (Primary Dx); MD Jewel Left spastic hemiparesis (HCC); Cerebrovascular accident (CVA) due to thrombosis of right middle cerebral artery (HCC); Chronic left shoulder pain 12/02/2017 Orders Only Rehabilitation Medicine Alaina Vzaquez Spasticity (Primary Dx) MD Jewel 11/28/2017 Refill [...] INFLUENZA VACCINE 01/06/2018 Implants Implanted Type Area Rn Vascular Device Expiration Model / Identifier Date Serial / Lot Device Closure 70cm 8fr .038in Right: TERUMO:TERUMO [id number] 2017 [id number] / Angio-Seal Vip [employer]-Plus - Sn/A Femoral MED 1813 N/A / Implanted: Qty: 1 on 03/20/2017 by Artery [id number] Arben Diaz MD Procedures Procedure Name Priority Date/Time Associated Diagnosis Comments SHOULDER MIN 2 VIEWS LEFT Routine 12/25/2017 Adhesive capsulitis of Results for this 3:04 PM CDT left shoulder procedure are in the Chronic left shoulder results section. pain OR CHEMODENERVATION 1 Routine 12/02/2017 Left spastic hemiparesis Results for this EXTREMITY EA ADDL 1-4 2:00 PM CDT ([facility] procedure are in the MUSCLE Spasticity results section. OR CHEMODENERVATION 1 Routine 12/02/2017 Left spastic hemiparesis Results for this EXTREMITY 5 OR MORE 2:00 PM CDT ([facility]) procedure are in the MUSCLES Spasticity results section. OR NEEDLE EMG GUID Routine 12/02/2017 Left spastic hemiparesis Results for this W/CHEMODENERVATION 2:00 PM CDT ([facility]) procedure are in the Spasticity results section. [...] Visit Physical Medicine & Rehabilitation [facility] Date of Service: 12/02/2017 Date of [...] the patient. Medication: Onabotulinumtoxin A Lot Number: [id number] Expiration Date: 06/2020 Total Amount Reconstituted: 300 Units Dilution: 1:1 The botulinum toxin was reconstituted in 3 mL of preservative free saline (Lot # [id number], Exp 06/2019) in a 100 Units to [...]
[2017-12-31] MEDS ORDERED: BACITRACIN INJECTION 50,000 UNIT, SODIUM CHLORIDE 0.9% IRRIGATIO 500 ML IR ONE ×2 (12:45)
[2017-12-31] MEDS ORDERED: ceFAZolin 1,000 MG/10 ML (ANCEF) VIAL IV ONE (12:45)
--- OUTSIDE RECORDS SUMMARY | 2017-12-31 12:45 | XMS REPORT | Encounter Summary ---
Author Author [facility] Organization [facility] Address Unknown Phone Unavailable Care Team Providers Care Document Management Consultant Name Role Phone No Pcp, Na PCP Unavailable Reason for Referral * Consult, Test & Treat (Routine) Status Reason Specialty Diagnoses / Referred By Referred To Procedures Contact Contact No Auth Needed Specialty Rehabilitation Diagnoses Israel Vazquez Spn Rehab Med Services Medicine Chronic left Alaina Cl Required shoulder pain MD Jewel [address] [place] [address] Phone: * Consult, Test & Treat (Routine) Status Reason Specialty Diagnoses / Referred By Referred To Procedures Contact Contact Closed Specialty Sports Medicine Diagnoses Abril Vazquez, Nathan Wiley, DO Services Chronic left Alaina [address] Required shoulder pain MD Jewel [place], [place] [address] [address] Phone: [place] [phone] Reason for Visit * Reason Comments Follow Up botulinum toxin injections; left shoulder pain Encounter Details Date Type Department Care Team Description 12/02/2017 Procedure visit [facility] - Alaina Vazquez Spasticity (Primary Dx); Rehabilitation Medicine MD Jewel Left spastic hemiparesis Ortho [facility] Medical [address] (HCC); [address] [place] [address] Cerebrovascular accident [address] [phone] (CVA) due to thrombosis [place] of right middle cerebral [address] artery (HCC); [phone] Chronic left shoulder pain Social History Tobacco [...] 2:00 PM CDT Associated Order(s): CHEMODENERVATION Procedure(s): MS CHEMODENERVATION 1 EXTREMITY EA ADDL 1-4 MUSCLE; MS CHEMODENERVATION 1 EXTREMITY 5 OR MORE MUSCLES; MS NEEDLE EMG GUID W/ CHEMODENERVATION Pre-Procedure Diagnose(s): Spasticity; Left spastic hemiparesis (HCC) Post-Procedure Diagnose(s): Spasticity; Left spastic hemiparesis (HCC) Formatting of this note may be different from the original. Neurorehabilitation Medicine - Procedure Visit Physical Medicine & Rehabilitation [facility] Date of Service: 12/02/2017 [...] the patient. Medication: Onabotulinumtoxin A Lot Number: [id number] Expiration Date: 06/2020 Total Amount Reconstituted: 300 Units Dilution: 1:1 The botulinum toxin was reconstituted in 3 mL of preservative free saline (Lot # [id number], Exp 06/2019) in a 100 Units to [...] Procedure Name Priority Date/Time Associated Diagnosis Comments MS CHEMODENERVATION 1 Routine 12/02/2017 Left spastic hemiparesis Results for this EXTREMITY EA ADDL 1-4 2:00 PM CDT ([facility]) procedure are in the MUSCLE Spasticity results section. MS CHEMODENERVATION 1 Routine 12/02/2017 Left spastic hemiparesis Results for this EXTREMITY 5 OR MORE 2:00 PM CDT ([facility]) procedure are in the MUSCLES Spasticity results section. MS NEEDLE EMG GUID Routine 12/02/2017 Left spastic hemiparesis Results for this W/CHEMODENERVATION 2:00 PM CDT ([facility]) procedure are in the Spasticity results section. in this encounter Results * CHEMODENERVATION (12/02/2017 2:00 PM) Narrative Performed At Alaina Vazquez MD 12/02/20173:40 PM IN CLINIC Neurorehabilitation Medicine - Procedure Visit Physical Medicine & Rehabilitation [facility] Date of Service: 12/02/2017 [...] the patient. Medication: Onabotulinumtoxin A Lot Number: [id number] Expiration Date: 06/2020 Total Amount Reconstituted: 300 Units Dilution: 1:1 The botulinum toxin was reconstituted in 3 mL of preservative free saline (Lot # [id number], Exp 06/2019) in a 100 Units to [...]
--- OUTSIDE RECORDS SUMMARY | 2017-12-31 12:45 | XMS REPORT | Encounter Summary ---
Author Author [facility] Organization [facility] Address Unknown Phone Unavailable Care Team Providers Care Running Specialist Name Role Phone No Pcp, Na PCP Unavailable Reason for Referral * Consult, Test & Treat Status Reason Specialty Diagnoses / Referred By Referred To Procedures Contact Contact New Request Specialty Diagnoses Abimaelckx, Services Left spastic Alaina Required hemiparesis MD Jewel ([facility]) [address] impairment [place], [place] Cerebrovascular [address] accident (CVA) Phone: due to [phone] thrombosis of Fax: right middle [phone] cerebral artery (HCC) * Consult, Test & Treat Status Reason Specialty Diagnoses / Referred By Referred To Procedures Contact Contact New Request Specialty Diagnoses Arickx, Services Cerebrovascular Alaina Required accident (CVA) MD Jewel due to [address] right middle [place], [place] cerebral artery [address] (HCC) Phone: Depression, unspecified Fax: depression type [phone] Reason for Visit * Reason Comments Spasticity Encounter Details Date Type Department Care Team Description 09/30/2017 Office Visit [facility] - Alaina Vazquez Left spastic hemiparesis Rehabilitation Medicine MD Jewel ([facility]) (Primary Dx); Ortho and Medical [address] Cognitive impairment; Pav[address] Level [address] [place] [address] Depression, unspecified [address] [phone] depression type; [place], [place] Cerebrovascular accident [id number] (CVA) due to thrombosis [phone] of right middle cerebral artery (HCC) Social [...] CDT This website may have helpful resources: [email or web address].org Mood Swings and Depression After a Stroke [...] person to cheer up. Date Last Reviewed: 11/06/201619998308-[address] [employer] [place] [address]. All rights reserved. This information is not intended as a substitute for professional medical care. Always follow your healthcare professional's instructions. in this encounter Progress Notes * Alaina Vazquez MD - 09/30/2017 2:00 PM CDT Formatting of this note may be different from the original. Established Clinic Visit Brain Injury Medicine Physical Medicine & Rehabilitation [facility] Date of Service: 09/30/2017 Chief [...] is beneficial and helps him with functional paralegal legal secretary. He does not wish to increase any [...] He is working with his therapist and [employer] [facility] on a functional e-stim system for ambulation [...] History: Diagnosis Date DVT (deep venous thrombosis) ([facility]) following traumatic leg fracture. completed 3 month [...] Abduction Elbow Flexion Elbow Extension Wrist Extension Gang Drill Operator Right 5 5 5 5 5 Left [...]
--- OUTSIDE RECORDS SUMMARY | 2017-12-31 12:45 | XMS REPORT | Encounter Summary ---
Author Author [facility] Organization [facility] Address Unknown Phone Unavailable Care Team Providers Care Welder Assembler Name Role Phone Nathan Lee MD PCP Reason for Referral * Pain Authorization (Routine) Status Reason Specialty Diagnoses / Referred By Referred To Procedures Contact Contact No Auth Needed Rehabilitation Diagnoses Cameron Ruffin [facility] Rehab Med Medicine Adhesive MD [place] [facility] capsulitis of [address] [place], [place] Chronic left [address] [phone] shoulder pain [place], [place] Phone: P [phone] rocedures Phone: [facility] SPINE [phone] LARGE JOINT Fax: DRAIN/INJECT [phone] Reason for Visit * Reason Comments Pain * Consult, Test & Treat (Routine) Status Reason Specialty Diagnoses / Referred By Referred To Procedures Contact Contact No Auth Needed Specialty Rehabilitation Diagnoses Israel Vazquez Spn Rehab Med Services Medicine Chronic left Alaina Cl Required shoulder pain MD Jewel [address] [place] [address] Phone: Encounter Details Date Type Department Care Team Description 12/25/2017 Office Visit Les Gannon Alaina Vazquez Adhesive capsulitis of Rehabilitative Medicine MD Jewel left shoulder (Primary [address] Dx); [place] [address] [place] [address] Chronic left shoulder [phone] pain; Spastic hemiplegia S affecting left Cameron fitch MD nondominant side, [address] unspecified etiology [place] [address] ([facility]); [place] [address] Decreased range of motion [phone] of left shoulder Social History Tobacco Use [...] under ultrasound guidance. I will schedule a [facility]. 5. Follow. Patient to follow-up for procedure. Thank you Dr. Vazquez for the opportunity to take part in the care of this very pleasant patient. Please feel free to call with questions or concerns. in this encounter Plan of Treatment Name Priority Associated Diagnoses Order Schedule [facility] SPINE LARGE JOINT DRAIN/INJECT Routine Adhesive capsulitis [...]
--- OUTSIDE RECORDS SUMMARY | 2017-12-31 12:45 | XMS REPORT | Encounter Summary ---
Author Author [facility] Organization [facility] Address Unknown Phone Unavailable Care Team Providers Care Type Caster Name Role Phone Nathan Lee MD PCP Encounter Details Date Type Department Care Team Description 12/25/2017 Hospital [facility] Cameron Ruffin MD Arrived Encounter [facility] [address] [place] [address] [place] [address] [phone] Social History Tobacco Use Types Packs/Day Years [...] impairment: No 12/25/2017 as of this encounter Medications at Time of Discharge Medication Sig. Disp. Refills Start Date End Date aspirin 325 mg tablet Take 1 tablet by mouth 03/28/2017 daily. Take with food. atorvastatin (LIPITOR) 40 Take 1 tablet by mouth 30 tablet 1 2017 mg tablet daily. baclofen (LIORESAL) 20 mg Take 1 tablet by mouth 90 tablet 1 2017 tablet three times daily. fluoxetine (PROZAC) 40 mg Take 1 capsule by mouth 30 capsule 1 2017 capsule daily. gabapentin (NEURONTIN) Take 1 capsule by mouth 30 capsule 1 2017 300 mg capsule at bedtime daily. methocarbamol (ROBAXIN) Take 1 tablet by mouth 60 tablet 3 05/01/2017 750 mg tablet three times daily as needed for Spasms. other medication 1 Dose. Hemp oil 2x day pantoprazole DR Take 1 tablet by mouth 30 tablet 1 05/01/2017 (PROTONIX) 40 mg tablet daily. traZODone (DESYREL) 50 mg Take 1 [...]
--- OUTSIDE RECORDS SUMMARY | 2017-12-31 12:45 | XMS REPORT | Encounter Summary ---
Author Author [facility] Organization [facility] Address Unknown Phone Unavailable Care Team Providers Care Farebox Repairer Name Role Phone Nathan Lee MD PCP Reason for Visit * Reason Comments Care Coordination Encounter Details Date Type Department Care Team Description 12/27/2017 Telephone [employer] Bhatia MD Care Coordination Rehabilitative Medicine [address] [place] [address] [place] [address] [phone] Social History Tobacco Use Types Packs/Day Years [...] impairment: No 12/25/2017 as of this encounter Miscellaneous Notes * Telephone Encounter - Anu Delgado RN - 12/27/2017 5:26 PM CDT Formatting of this note may be different from the original. Message Received: Yesterday Message Contents Cameron Ruffin MD Pepin, Chantel, RN I need to call the patient to see about getting an MRI scheduled prior to our injection. I tried the number listed, but could not get it to work. I attempted the number listed for his work, but they said he no longer works there and they have no contact information. RN called Thomas, let him know Dr. Ruffin wants patient to have MRI prior to injection scheduled 01/[address] [facility]. Patient is agreeable to this plan, did say that he was in the ER last night because he had another seizure early yesterday. Patient is feeling better today, they changed his anti-seizure medication to Kepra twice daily. RN to discuss POC with Dr Ruffin Saturday & f/u with patient by phone. Will likely need to reschedule injection for later date to allow time for patient to have MRI (patient would like to have the MRI at [facility] in [place]). in this encounter Plan of Treatment Not on fileas of this encounter Visit Diagnoses Not on filein this encounter
--- OUTSIDE RECORDS SUMMARY | 2017-12-31 12:45 | XMS REPORT | Encounter Summary ---
Author Author [facility] Organization [facility] Address Unknown Phone Unavailable Care Team Providers Care Cash Application Representative Name Role Phone Nathan Lee MD PCP Reason for Referral * Radiology Services (Routine) Status Reason Specialty Diagnoses / Referred By Referred To Procedures Contact Contact Authorized Radiology Diagnoses Cameron uRffin, Princess left MD shoulder pain [address] capsulitis of [place] [address] [place], [place] P [address] rocedures Phone: MRI UPPER EXTREM [phone] WO CONT LEFT Encounter Details Date Type Department Care Team Description 12/27/2017 Orders Only Cameron Felder MD Chronic left shoulder Rehabilitative Medicine [address] pain (Primary Dx); [address] [place] [address] [place] [address] left shoulder [phone] Social History Tobacco Use Types Packs/Day Years [...] Treatment Name Priority Associated Diagnoses Order Schedule MRI UPPER EXTREM WO CONT LEFT Routine Chronic left shoulder Expected: , pain Expires: 12/27/2018 Adhesive capsulitis of left shoulder as of this encounter Visit Diagnoses Diagnosis Chronic left shoulder pain - Primary Pain in joint, shoulder region Adhesive capsulitis of left shoulder Adhesive capsulitis of shoulder
--- OUTSIDE RECORDS SUMMARY | 2017-12-31 12:45 | XMS REPORT | Encounter Summary ---
Author Author [facility] Organization [facility] Address Unknown Phone Unavailable Care Team Providers Care Wallet Assembler Name Role Phone No Pcp, Na PCP Unavailable Reason for Visit * Reason Comments Letter return to driving Encounter Details Date Type Department Care Team Description 11/13/2017 Telephone [facility] - Alaina Vazquez Letter ( return to Rehabilitation Medicine MD Jewel driving) Ortho and Medical [address] [place] [address] [phone] [place] [address] Social History Tobacco Use Types [...]
--- OUTSIDE RECORDS SUMMARY | 2017-12-31 12:45 | XMS REPORT | Encounter Summary ---
Author Author [facility] Organization [facility] Address Unknown Phone Unavailable Care Team Providers Care Customer Service Assistant Name Role Phone No Pcp, Na PCP Unavailable Encounter Details Date Type Department Care Team Description 12/02/2017 Orders Only [facility] - Alaina Vazquez Spasticity (Primary Dx) Rehabilitation Medicine MD Jewel Ortho and Medical [address] [place] [address] [phone] [place] [address] Social History Tobacco Use Types [...]
--- OUTSIDE RECORDS SUMMARY | 2017-12-31 12:45 | XMS REPORT | Encounter Summary ---
Author Author [facility] Organization [facility] Address Unknown Phone Unavailable Care Team Providers Care Industrial Chemicals Supervisor Name Role Phone No Pcp, Na PCP Unavailable Nathan Lee MD PCP Reason for Visit * Reason Comments Medication Refill Encounter Details Date Type Department Care Team Description 11/28/2017 Refill [facility] - Alaina Vazquez Rehabilitation Medicine MD Jewel Ortho and Medical [address] [place] [address] [phone] [place] [address] Social History Tobacco Use Types [...]
--- OUTSIDE RECORDS SUMMARY | 2017-12-31 12:46 | XMS REPORT | Continuity of Care Document ---
Author Author [facility] Organization [facility] Address Unknown Phone Unavailable Allergies Active Description Code Type Severity Reaction Onset Reported/Identified Relationship to Patient Clinical Status Yes No Known Drug Allergies [id number] Drug Allergy Unknown N/A 12/28/2009 Medications There [...] Z86.718 PERSONAL HISTORY OF OTHER VENOUS THROMBO 12/30/2017 ANTHONY GRAVES MD, Ot D72.829 ELEVATED WHITE BLOOD CELL COUNT, UNSPECI 12/30/2017 ANTHONY GRAVES MD, Ot M54.2 CERVICALGIA 12/30/2017 ANTHONY GRAVES MD, Ot R25.8 OTHER ABNORMAL INVOLUNTARY MOVEMENTS 12/30/2017 ANTHONY GRAVES MD, Ot R55 SYNCOPE AND COLLAPSE 12/30/2017 ANTHONY GRAVES MD, Ot Z79.82 FDC (CURRENT) USE OF ASPIRIN 12/30/2017 ANTHONY GRAVES MD, Ot Z86.718 PERSONAL HISTORY OF OTHER VENOUS THROMBO 12/30/2017 ANTHONY GRAVES MD, Ot Z86.73 PRSNL HX OF TIA (TIA), AND CEREB INFRC W Procedures There is no data. Results Test [...] urinalysis with reflex to culture NO NRG Complete blood count (CBC) with automated white blood cell (WBC) differential - 12/26/17 17:35 Blood leukocytes automated count (number/volume) 15.3 10*3/uL 4.3-11.0 Blood erythrocytes automated count (number/volume) 5.14 10*6/uL 4.35-5.85 Venous blood hemoglobin measurement (mass/volume) 16.9 g/dL 13.3-17.7 Blood hematocrit (volume fraction) 46 % 40-54 Automated erythrocyte mean corpuscular volume 89 [foz_us] 80-99 Automated erythrocyte mean corpuscular hemoglobin (mass per erythrocyte) 33 pg 25-34 Automated erythrocyte mean corpuscular hemoglobin concentration measurement ( mass/volume) 37 g/dL 32-36 Automated erythrocyte distribution width ratio 12.6 % 10.0-14.5 Automated blood platelet count (count/volume) 291 10*3/uL 130-400 Automated blood platelet mean volume measurement 10.1 [foz_us] 7.4-10.4 Automated blood neutrophils/100 leukocytes 80 % 42-75 Automated blood lymphocytes/100 leukocytes 15 % 12-44 Blood monocytes/100 leukocytes 5 % 0-12 Automated blood eosinophils/100 leukocytes 0 % 0-10 Automated blood basophils/100 leukocytes 0 % 0-10 Blood neutrophils automated count (number/volume) 12.3 10*3 1.8-7.8 Blood lymphocytes automated count (number/volume) 2.3 10*3 1.0-4.0 Blood monocytes automated count (number/volume) 0.8 10*3 0.0-1.0 Automated eosinophil count 0.0 10*3/uL 0.0-0.3 Automated blood basophil count (count/volume) 0.0 10*3/uL 0.0-0.1 PT panel in platelet poor plasma by coagulation assay - 12/26/17 17:35 Prothrombin time (PT) in platelet poor plasma by coagulation assay 13.9 s 12.2-14.7 INR in platelet poor plasma or blood by coagulation assay 1.1 0.8-1.4 Activated partial thromboplastin time (aPTT) in platelet poor plasma bycoagulation assay - 12/26/17 17:35 Activated partial thromboplastin time (aPTT) in platelet poor plasma bycoagulation assay 26 s 24-35 Fibrin D-dimer FEU measurement in platelet poor plasma (mass/volume) - 17:35 Fibrin D-dimer FEU measurement in platelet poor plasma (mass/volume) 0.96 ug/mL 0.00-0.49 Comprehensive metabolic panel - 12/26/17 17:35 Serum or plasma sodium measurement (moles/volume) 139 mmol/L 135-145 Serum or plasma potassium measurement (moles/volume) 3.6 mmol/L 3.6-5.0 Serum or plasma chloride measurement (moles/volume) 105 mmol/L 98-107 Carbon dioxide 24 mmol/L 21-32 Serum or plasma anion gap determination (moles/volume) 10 mmol/L 5-14 Serum or plasma urea nitrogen measurement (mass/volume) 17 mg/dL 7-18 Serum or plasma creatinine measurement (mass/volume) 0.84 mg/dL 0.60-1.30 Serum or plasma urea nitrogen/creatinine mass ratio 20 NRG Serum or plasma creatinine measurement with calculation of estimated glomerular filtration rate > NRG Serum or plasma glucose measurement (mass/volume) 133 mg/dL 70-105 Serum or plasma calcium measurement (mass/volume) 9.5 mg/dL 8.5-10.1 Serum or plasma total bilirubin measurement (mass/volume) 0.8 mg/dL 0.1-1.0 Serum or plasma alkaline phosphatase measurement (enzymatic activity/volume) 64 U/L 40-136 Serum or plasma aspartate aminotransferase measurement (enzymatic activity/ volume) 25 U/L 5-34 Serum or plasma alanine aminotransferase measurement (enzymatic activity/volume ) 58 U/L 0-55 Serum or plasma protein measurement (mass/volume) 7.7 g/dL 6.4-8.2 Serum or plasma albumin measurement (mass/volume) 4.3 g/dL 3.2-4.5 CALCIUM CORRECTED 9.3 mg/dL 8.5-10.1 Blood manual differential performed detection - 12/26/17 17:35 Blood monocytes/100 leukocytes 5 % NRG Manual blood segmented neutrophils/100 leukocytes 72 % NRG Blood band neutrophils/100 leukocytes 2 % NRG Manual blood lymphocytes/100 leukocytes 21 % NRG Manual eosinophils/100 leukocytes in nose 0 % NRG Manual blood basophils/100 leukocytes 0 % NRG Blood erythrocyte morphology finding identification NORMAL NRG Serum or plasma troponin i.cardiac measurement (mass/volume) - 12/26/17 17:35 Serum or plasma troponin i.cardiac measurement (mass/volume) < ng/ mL <0.30 Serum or plasma creatine kinase measurement (enzymatic activity/volume) - 12/26 17:35 Serum or plasma creatine kinase measurement (enzymatic activity/volume) 242 U/L 30-200 Serum or plasma C reactive protein measurement (mass/volume) - 12/26/17 17:35 Serum or plasma C reactive protein measurement (mass/volume) 0.06 mg /dL 0.00-0.50 Magnesium - 12/26/17 17:35 Magnesium 2.4 mg/dL 1.8-2.4 Capillary blood glucose measurement by glucometer (mass/volume) - 12/26/17 17: 58 Capillary blood glucose measurement by glucometer (mass/volume) 122 mg/dL 70-110 Complete urinalysis with reflex to culture - 12/26/17 19:24 Urine color determination YELLOW NRG Urine clarity determination CLEAR NRG Urine pH measurement by test strip 6.5 5-9 Specific gravity of urine by test strip 1.015 1.016- 1.022 Urine protein assay by test strip, semi-quantitative NEGATIVE NEGATIVE Urine glucose detection by automated test strip NEGATIVE NEGATIVE Erythrocytes detection in urine sediment by light microscopy NEGATIVE NEGATIVE Urine ketones detection by automated test strip NEGATIVE NEGATIVE Urine nitrite detection by test strip NEGATIVE NEGATIVE Urine total bilirubin detection by test strip NEGATIVE NEGATIVE Urine urobilinogen measurement by automated test strip (mass/volume) 4 mg/dL NORMAL Urine leukocyte esterase detection by dipstick 1+ NEGATIVE Automated urine sediment erythrocyte count by microscopy (number/high power field) NONE NRG Automated urine sediment leukocyte count by microscopy (number/high power field ) [HPF] NRG Bacteria detection in urine sediment by light microscopy NONE NRG Crystals detection in urine sediment by light microscopy NONE NRG Casts detection in urine sediment by light microscopy NONE NRG Mucus detection in urine sediment by light microscopy SMALL NRG Complete urinalysis with reflex to culture NO NRG Encounters ACCT No. Visit Date/Time Discharge Status Pt. Type Provider Facility Loc./Unit Complaint [id number] 10/11/2016 12:01:17 10/11/2016 23:59:59 CLS Outpatient Raina Foley [id number] 07/31/2016 09:24:08 07/31/2016 23:59:59 CLS Outpatient Nathan Childers [id number] 12/26/2017 17:19:00 12/26/2017 20:00:00 DIS Outpatient ELY RANGEL, ANTHONY [place] [facility] ER LOSS OF CONSCIOUSNESS,POSS SEIZURE,HX OF STROKE [id number] 07/24/2017 14:55:00 07/24/2017 23:59:59 CLS Outpatient GEORGES RANGEL, ALFREDO [facility] CATH CVA [id number] 04/25/2017 15:20:00 04/25/2017 23:59:59 CLS Preadmit OTHER, UNLISTED [facility] REHAB CVA [id number] 03/20/2017 07:13:00 03/20/2017 09:28:00 DIS Emergency ELY RANGEL, ANTHONY [place] [facility] ER POSS STROKE [id number] 11/11/2013 14:18:00 11/11/2013 23:59:59 CLS Outpatient ISH CRAWFORD APRN [facility] RAD ABD PAIN [id number] 11/11/2013 06:51:00 11/11/2013 23:59:59 CLS Outpatient ISH CRAWFORD APRN [facility] RAD ABD PAIN
[2017-12-31 13:14] LABS: HEMOGLOBIN 16.3 G/DL (13.3-17.7); MEAN PLATELET VOLUME 9.9 FL (7.4-10.4); RED BLOOD COUNT 5.01 10^6/uL (4.35-5.85); RED CELL DISTRIBUTION WIDTH 12.6 % (10.0-14.5); WHITE BLOOD COUNT 9.1 10^3/uL (4.3-11.0)
[2017-12-31 13:28] LABS: INR 1.1 (0.8-1.4); PROTHROMBIN TIME PATIENT 13.9 SEC (12.2-14.7)
[2017-12-31] MEDS ORDERED: FLU QUADRIvalent (5+ YOA) 2018-2019 (AFLURIA) 0.5 ML IM ONE (13:30)
[2017-12-31 13:36] LABS: ALANINE AMINOTRANSFERASE 57 U/L (0-55); ALBUMIN 4.3 GM/DL (3.2-4.5); ALKALINE PHOSPHATASE 64 U/L (40-136); BUN/CREATININE RATIO 18; CALCIUM 9.3 MG/DL (8.5-10.1); CARBON DIOXIDE 29 MMOL/L (21-32); CHLORIDE 106 MMOL/L (98-107); CHOLESTEROL 121 MG/DL (< 200); CREATININE SERUM 0.91 MG/DL (0.60-1.30); GFR ESTIMATED > 60; GLUCOSE 79 MG/DL (70-105); HDL CHOLESTEROL 38 MG/DL (40-60); POTASSIUM 4.3 MMOL/L (3.6-5.0); SODIUM 140 MMOL/L (135-145); TOTAL PROTEIN 7.6 GM/DL (6.4-8.2); TRIGLYCERIDES 108 MG/DL (<150); VLDL CHOLESTEROL 22 MG/DL (5-40)
[2017-12-31] MEDS ORDERED: NS (IVPB) 50 ML ONE (14:12)
[2017-12-31] MEDS ORDERED: fentaNYL INJECTION 100 MCG/2 ML AMP ONE (15:27)
[2017-12-31] MEDS ORDERED: MIDAZOLAM 5 MG/5 ML (VERSED) VIAL ONE ×2 (15:27→16:48)
--- NOTE | 2017-12-31 15:47 | Cardiac Procedure Note-CS/ASA ---
Pre-Procedure Note Pre-Op Procedure Note H&P Reviewed The H&P was reviewed, patient examined and no changes noted. Date H&P Reviewed: Dec 31, 2017 Time H&P Reviewed: 15:47 Conscious Sedation Pre-Proced Time 15:47 ASA Score 3 For ASA 3 and 4: Consider anesthesia and medical clearance. Also, for patients with a history of failed moderate sedation consider anesthesia. Airway Lungs Heart ASA score ASA 1: a normal healthy patient ASA 2: a patient with a mild systemic disease (mid diabetes, controlled hypertension, obesity x ASA 3: a patient with a severe systemic disease that limits activity (angina , COPD, prior Myocardial infarction) ASA 4: a patient with an incapacitating disease that is a constant threat to life (CHF, renal failure) ASA 5: a moribund patient not expected to survive 24 hrs. (ruptured aneurysm) ASA 6: a declared brain patient whose organs are being harvested. For emergent operations, add the letter E after the classification Mallampati Classification Grade 3 Sedation Plan Analgesia, Amnesia, Plan communicated to team members, Discussed options with patient/fam, Discussed risks with patient/fam The patient is an appropriate candidate to undergo the planned procedure, sedation, and anesthesia. The patient immediately re-assessed prior to indication. ALFREDO SU MD Dec 31, 2017 15:47
[2017-12-31] MEDS ORDERED: NEO/POLY/BAC (NEOSPORIN) OINT 15 GM TUBE ONE (17:25)
[2017-12-31] MEDS ORDERED: NS IV 1000 ML 1,000 ML IV SCH (17:50)
--- NOTE | 2017-12-31 17:58 | Permanent Pacemaker Implant ---
Dual Chamber Pacemaker Implant PROCEDURE PHYSICIAN: Alfredo An DUAL CHAMBER PACEMAKER IMPLANTATION: DATE OF PROCEDURE: 12/31/17 INDICATION: Sick sinus syndrome 42 years old gentleman with history of CVA, had a reveal device implanted, reported syncopal episode with myoclonic seizure-like activity, interrogation of his reveal device showed multiple episodes of bradycardia with sinus pause up to 14 seconds, heart rate around 10/m. Resolved spontaneously. Patient went to the emergency room. We decided to proceed with dual-chamber pacemaker implant PREOPERATIVE DIAGNOSIS: Syncope, sick sinus syndrome POSTOPERATIVE DIAGNOSIS: Syncope, sick sinus syndrome HISTORY: Dual-chamber permanent pacemaker was recommended. PROCEDURE PERFORMED: 1. Dual-chamber permanent pacemaker implantation. 2. Fluoroscopy. 3. Central venous access. ANESTHESIA: Local anesthesia, conscious sedation. COMPLICATIONS: None. ESTIMATED BLOOD LOSS:20 mL. SPECIMENS: None. ORAL ANTICOAGULATION: None. FLUOROSCOPY TIME: FLUOROSCOPY DOSE: CONTRAST DOSE: PROCEDURE DETAILS: The patient is a 42 male and after all of the patients questions were answered, the patient was brought to the EP Lab. The patient's left chest was prepped and draped in sterile fashion. A 2 inch horizontal incision was made 1 cm below the clavicle and dissection carried down to the pectoralis fascia. Using the modified Seldinger technique and under fluoroscopy guidance, the anterior aspect of the left axillary vein was accessed 2 times. The J wires were secured to the drapes with a mosquito clamp. A 7-Jamaican sheath was introduced over one of the J-wires. The RV lead was then inserted. The RV lead was directed across the tricuspid valve to the apical septal portion of the right ventricle. The position was checked in PERUVIAN and ZULUAGA views. The screw was deployed and the lead connected to the business programmer. Close sensing and pacing thresholds were obtained. Diaphragmatic pacing was ruled out. The lead was secured with 2-0 silk ties to the underlying muscle and fascia. Next, a 7-Jamaican sheath was introduced through the remaining J-wire. An atrial lead was then introduced and guided to the level of the right appendage. The screw was deployed and the lead was connected to the interrogator. Good sensing and pacing thresholds were obtained. Diaphragmatic pacing was ruled out. The leads were secured with 2-0 silk ties to the underlying muscle and fascia. The leads were connected to the device in a hermetic fashion. The device and leads were placed in the pocket. Aggressive irrigation with saline solution was done. The device was secured to the underlying muscle and fascia with a 2-0 silk tie. interrogation of the device revealed good integrity of all the leads and good connections. The wound was then closed using 2 layers. The first layer was interrupted 2-0 absorbable Vicryl suture. The last layer was a single subcuticular layer with 4- 0 Vicryl suture. Half inch Steri-Strips and a small dressing were then applied to the wound. The patient tolerated the procedure well and was returned to the recovery room in stable condition with stable vital signs. DEVICE INFORMATION: RA LEAD: Medtronic serial number [id number] RV LEAD: Medtronic serial number [id number] IMMEDIATE POSTOPERATIVE DEVICE INTERROGATION: Open Me IPG [id number] NANDINI CALIX SERIAL NUMBER [id number] PLAN: The patient transferred to the ICU. We will continue with two more doses of IV antibiotics. We will check a chest x-ray and interrogate the device in the morning. The patient will continue on oral antibiotics for 5 days. CONCLUSION: Successful chamber pacemaker implantation with no complication FINAL DIAGNOSIS: Syncope Sinus node dysfunction Bradycardia CVA ALFREDO AN MD Dec 31, 2017 5:58 pm
[2017-12-31] MEDS ORDERED: PATIENT MAY USE OWN MEDS, ALL PO SCH (18:00)
--- NOTE | 2017-12-31 18:44 | Diagnostic Imaging Report ---
INDICATION: Pacemaker placement. TIME OF EXAM: 7:20 PM COMPARISON: Correlation is made with prior study 12/26/2017. FINDINGS: Dual-lead left subclavian cardiac pacemaker has been placed. Pacemaker leads appear to be in the region of the right atrium and right ventricle. The lungs are clear. No pneumothorax is seen. No effusion or pneumothorax is detected. IMPRESSION: Pacemaker placement. No acute abnormality is identified. Dictated by: Dictated on workstation # [id number]
[2017-12-31] MEDS: oxyCODONE/APAP 5/325MG (PERCOCET 5) TABLET PO PRN (20:18)
[2017-12-31] MEDS: ceFAZolin INJECTION 1,000 MG in NS (IVPB) 50 ML IV SCH (20:19)
--- NOTE | 2017-12-31 22:07 | OPERATIVE REPORT ---
DATE OF SERVICE: 12/31/2017 REVEAL DEVICE EXTRACTION REPORT SURGEON: Alfredo An MD BRIEF HISTORY: The patient is a 42-year-old gentleman who had history of CVA, had a Reveal device implanted and recently had a syncopal episode with sinus pause up to 14 seconds, multiple episodes of bradycardia and multiple pauses 4 to 5 seconds. He was scheduled for dual chamber pacemaker implantation and after the implantation, I proceeded with Reveal device extraction. PROCEDURE NOTE: After explaining the procedure to the patient and his , consent was obtained. The patient was sedated for the dual chamber pacemaker implant. Local anesthesia applied. A small skin incision was made. Then, the Reveal device was extracted. Two sutures were made and manual pressure applied. No complication noted. CONCLUSION: Successful Reveal device extraction with no complication. Job ID: [id number] DocumentID: [id number] Dictated Date: 12/31/2017 18:00:18 Ceramic Coater Date: 12/31/2017 22:07:29 Dictated By: ALFREDO AN MD
[2017-12-31] MEDS: BACLOFEN 10 MG (LIORESAL) TAB PO SCH (23:45)
[2017-12-31] MEDS: GABAPENTIN 300 MG (NEURONTIN) CAP PO SCH (23:45)
[2018-01-01 00:30] VITALS: BP 127/79
[2018-01-01] MEDS: oxyCODONE/APAP 5/325MG (PERCOCET 5) TABLET PO PRN ×3 (01:18→09:41)
[2018-01-01 03:48] VITALS: BP 120/74
[2018-01-01] MEDS: ceFAZolin INJECTION 1,000 MG in NS (IVPB) 50 ML IV SCH (05:42)
[2018-01-01] MEDS ORDERED: PANTOPRAZOLE 40 MG (PROTONIX) TAB PO SCH (07:00)
[2018-01-01] MEDS ORDERED: CEFU500T63 PO (07:40)
[2018-01-01] MEDS: GABAPENTIN 300 MG (NEURONTIN) CAP PO SCH (07:40)
[2018-01-01] MEDS: BACLOFEN 10 MG (LIORESAL) TAB PO SCH (07:40)
[2018-01-01 08:00] VITALS: BP 137/83
--- NOTE | 2018-01-01 08:33 | Cardiology Progress Note ---
Subjective Date Seen by Provider: Jan 01, 2018 Time Seen by Provider: 08:31 Subjective/Events-last exam Patient is laying down in bed, feeling well, complaining of neck and shoulder pain. No chest pain Review of Systems General: No Chills, No Night Sweats, No Fatigue, No Malaise, No Appetite, No Other HEENT: No Head Aches, No Visual Changes, No Eye Pain, No Ear Pain, No Dysphasia , No Sinus Congestion, No Post Nasal Drip, No Sore Throat, No Other Pulmonary: No Dyspnea, No Cough, No Pleuritic Chest Pain, No Other Cardiovascular: No: Chest Pain, Palpitations, Orthopnea, Paroxysmal Noc. Dyspnea, Edema, Lt Headedness, Other Objective-Cardiology Exam Last Set of Vital Signs Vital Signs 01/01/18 01/01/18 03:48 07:00 Temp 97.9 Pulse 69 Resp 17 B/P (MAP) 120/74 (89) Pulse Ox 93 O2 Delivery Room Air Capillary Refill : I&O Intake and Output 01/01/18 00:00 Intake Total 680 ml Balance 680 ml Intake Oral 680 ml # Voids 1 Daily Weight Change No General: Alert, Oriented X3, Cooperative HEENT: Atraumatic, PERRLA Neck: Supple, No JVD, No Thyromegaly Lungs: Clear to Auscultation, Normal Air Movement Heart: Regular Rate, Normal S1, Normal S2, No Murmurs Abdomen: Normal Bowel Sounds, Soft, No Tenderness, No Hepatosplenomegaly, No Masses Extremities: No Clubbing, No Cyanosis, No Edema, Normal Pulses, No Tenderness/ Swelling Skin: No Rashes, No Breakdown, No Significant Lesion Neuro: Other (Left-sided weakness and aphasia) Psych/Mental Status: Mental Status NL, Mood NL Results Lab Laboratory Tests 12/31/17 13:07 A/P-Cardiology Admission Diagnosis Syncope Sinus node dysfunction Bradycardia CVA Assessment/Plan Sick sinus syndrome, sinus pause for 14 seconds, severe bradycardia resulted in syncope and seizure like activity. A proceeded with dual-chamber pacemaker implant, doing well, I instructed him to stop antiseizure medication for now. History of CVA, had a reveal device for cryptogenic stroke which detected his bradycardia and syncope. It was extracted during the procedure. Weakness, left-sided weakness, receiving physical therapy. Hyperlipidemia Hypertension Planning to continue current medication monitor Clinical Quality Measures DVT/VTE Risk/Contraindication: Risk Factor Score Per Nursin RFS Level Per Nursing on Admit: 1=Low/No VTE PPX ALFREDO SU MD Jan 01, 2018 08:33
[2018-01-01] MEDS ORDERED: OXYC1TAB87 PO (09:33)
[2018-01-01 09:53] VITALS: BP 137/83
== END 2018-01-01 09:53 | disposition home or self-care (01) ==
LOC: CATH 12:40 → 4TH 18:35 → CATH 01-01 09:53
PROVIDERS: ATTEND Internal Medicine Cardiovascular Disease
DX: I49.5 Sick sinus syndrome (principal); R55 Syncope and collapse; E78.2 Mixed hyperlipidemia; I10 Essential (primary) hypertension; I69.354 Hemiplegia and hemiparesis following cerebral infarction affecting left non-dominant side; R00.1 Bradycardia, unspecified; Z86.718 Personal history of other venous thrombosis and embolism; K21.9 Gastro-esophageal reflux disease without esophagitis; Z79.899 Other long term (current) drug therapy
CPT/HCPCS: 33208; 33284; 36415; 71045; 80053; 80061; 85027; 85610; 85730; 87081; 93005

== ENCOUNTER → 2017-12-31 | Outpatient (CLI) | payer BC ==
[~2017-12-31] MED LIST changes: +ATOR40TA70; +BACL20TA; +CEFU500T63 PO; +FLUO40CA; +GABA-488; +LEVE500T99 PO; +METH750T3; +NIAC500T24 PO; +OMEG-160 PO; +OXYC1TAB87 PO; +PANT40TA3; +TRAZ-189; +UBID10CA5 PO
--- NOTE | 2017-12-31 15:10 | Diagnostic Imaging Report ---
PROCEDURE: MRI left upper extremity without contrast. Technique: Multiplanar, multisequence MR imaging of the left shoulder was performed without contrast. Comparison: None available. Indication: Left-sided shoulder pain and weakness. Findings: Rotator cuff: No high-grade partial or full-thickness rotator cuff tear. Mild tendinopathy of the supraspinatus is present without superimposed tearing. No rotator cuff muscle atrophy or denervation edema. Glenoid labrum: By non-arthrogram imaging, the glenoid labrum appears intact. No para-labral cyst. Long head of biceps: Long head of biceps is normally positioned within the bicipital groove. The intracapsular segment is intact. Bones and cartilage: Humeral head is normal in morphology without fracture or focal osseous lesion. No glenohumeral chondromalacia. The acromioclavicular joint is normal in alignment without significant degenerative change. Soft tissues: No glenohumeral joint effusion. No MRI findings to suggest adhesive capsulitis. No fluid or inflammatory like signal within the subacromial/subdeltoid space to indicate bursitis. IMPRESSION: 1. No rotator cuff tear or muscle atrophy. Mild tendinopathy of the supraspinatus. 2. Long head of biceps is normal. 3. By non-arthrogram imaging, there is no glenoid labral tear. Dictated by: Dictated on workstation # [id number]
== END ==
LOC: RAD 11:07
PROVIDERS: ATTEND Student in an Organized Health Care Education/Training Program
DX: M75.82 Other shoulder lesions, left shoulder (principal); M75.02 Adhesive capsulitis of left shoulder
CPT/HCPCS: 73221

== ENCOUNTER 2018-01-24 12:24 | Observation (INO) | payer BC ==
[~2018-01-24] VITALS: Ht 188 cm; Wt 74.8 kg
[~2018-01-24 12:24] MED LIST changes: +CEFU500T63 PO; +OXYC1TAB87 PO
--- OUTSIDE RECORDS SUMMARY | 2018-01-24 12:30 | XMS REPORT | Encounter Summary ---
Author Author [facility] Organization [facility] Address Unknown Phone Unavailable Care Team Providers Care Commissioned Security Officer Name Role Phone Nathan Lee MD PCP Encounter Details Date Type Department Care Team Description 01/15/2018 Ancillary Rad Outpatient, Radiologist Diagnosis unknown Orders [address] [place] [address] Social History Tobacco Use Types Packs/Day Years [...] on fileas of this encounter Results * GENERAL RAD CHEST EXTERNAL IMAGING (12/31/2017 7:20 PM) Narrative Performed At This order has been auto finalized and does not contain a result. * MRI UPPER EXT EXTERNAL IMAGING (12/31/2017 11:35 AM) Narrative Performed At This order has been auto finalized and does not contain a result. in this encounter Visit Diagnoses Diagnosis Diagnosis unknown Other unknown and unspecified cause of morbidity or mortality
--- OUTSIDE RECORDS SUMMARY | 2018-01-24 12:30 | XMS REPORT | Encounter Summary ---
Author Author [facility] Organization [facility] Address Unknown Phone Unavailable Care Team Providers Care Manager Career Name Role Phone Nathan Lee MD PCP Encounter Details Date Type Department Care Team Description 12/31/2017 Documentation Cameron Felder MD Rehabilitative Medicine [address] [place] [address] [place] [address] [place] [address] [phone] Social History Tobacco Use Types Packs/Day Years [...] as of this encounter Progress Notes * Anu Delgado RN - 12/31/2017 9:50 AM CDT RN received call from CHARLIE Arnold for Dr. An - cardiology clinic at [facility] in [place]. This patient had 14.5 second cardiac pause & they are planning to implant pacemaker today. Patient was concerned about shoulder MRI ordered by Dr. Ruffin as he will be unable to have this post op for at least [address] Ruffin spoke with Dr. An - agreed if PA was obtained for shoulder MRI today they would perform this US at [facility] prior to pacemaker implant. RN checked with precert, authorization was obtained - the PA & the order were faxed to [phone] nadine Arnold RN. in this encounter Plan of Treatment Not on fileas of this encounter Visit Diagnoses Not on filein this encounter
--- OUTSIDE RECORDS SUMMARY | 2018-01-24 12:30 | XMS REPORT | Encounter Summary ---
Author Author [facility] Organization [facility] Address Unknown Phone Unavailable Care Team Providers Care Corrosion Control Engineer Name Role Phone Nathan Lee MD PCP Encounter Details Date Type Department Care Team Description 01/01/2018 Documentation Cameron Felder MD Rehabilitative Medicine [address] [place] [address] [place] [address] [place] [address] [phone] Social History Tobacco Use Types Packs/Day Years [...] Progress Notes * Anu Delgado RN - 01/01/2018 10:36 AM CDT RN faxed request for imaging Left Shoulder MRI to [facility] , requested images be clouded or mailed by disc and report be faxed to [phone], confirmation fax received. in this encounter Plan of Treatment Not on fileas of this encounter Visit Diagnoses Not on filein this encounter
--- OUTSIDE RECORDS SUMMARY | 2018-01-24 12:30 | XMS REPORT | Encounter Summary ---
Author Author [facility] Organization [facility] Address Unknown Phone Unavailable Care Team Providers Care Forming Process Worker Name Role Phone Nathan Lee MD PCP Reason for Visit * Reason Comments Shoulder Pain Lt * Pain Authorization (Routine) Status Reason Specialty Diagnoses / Referred By Referred To Procedures Contact Contact No Auth Needed Rehabilitation Diagnoses Cameron Ruffin [facility] Re[facility] Med Medicine Adhesive [facility] capsulitis of [address] [place], [place] Chronic left [place] [address] [phone] shoulder pain [place], [place] Phone: [phone] rocedures Phone: [facility]B SPINE [phone] LARGE JOINT Fax: DRAIN/INJECT [phone] Encounter Details Date Type Department Care Team Description 01/09/2018 Procedure visit [facility] Cameron Ruffin MD Chronic left shoulder Physicians - Rehab [address] pain (Primary Dx); Medicine [address] Adhesive capsulitis [place] [address] left [address] [phone] [place] [address] [phone] Social History Tobacco Use Types Packs/Day Years Used Date Never Smoker Smokeless Tobacco: Never Used Alcohol Use Drinks/Week oz/Week Comments No Sex Assigned at Date Recorded Not on file as of this encounter Last Filed Vital Signs Vital Sign Reading Time Taken Blood Pressure 132/82 01/09/2018 1:19 PM CDT Pulse 67 01/09/2018 1:19 PM CDT Temperature 36.6 C (97.8 F) 01/09/2018 1:19 PM CDT Respiratory Rate 8 01/09/2018 1:19 PM CDT Oxygen Saturation - - Inhaled Oxygen - - Concentration Weight 74.6 kg (164 lb 8 oz) 01/09/2018 1:19 PM CDT Height 188 cm (6' 2") 01/09/2018 1:19 PM CDT Body Mass Index 21.12 01/09/2018 1:19 PM CDT in this encounter Functional Status [...] Progress Notes * Cameron Ruffin MD - 01/09/2018 12:15 PM CDT Formatting of this note may be different from the original. [facility] INTERVENTIONAL PAIN PROCEDURE HISTORY AND PHYSICAL Chief Complaint Patient presents with Shoulder Pain Lt HISTORY OF PRESENT ILLNESS: Thomas Osei is a 42 y.o. year old male who presents for injection. Denies fevers, chills, or recent hospitalizations. Past Medical History: Diagnosis Date DVT (deep venous thrombosis) ([facility]) following traumatic leg fracture. completed 3 month course of warfarin Stroke ([facility]) Past Surgical History: Procedure Laterality Date PACEMAKER PLACEMENT 12/31/2017 BREAST SURGERY Left mass removed HX HERNIA [...] No narrative on file No Known Allergies Vitals: 01/09/18 1319 BP: 132/82 Pulse: 67 Resp: 8 Temp: 36.6 C (97.8 F) TempSrc: Oral Weight: 74.6 kg (164 lb 8 oz) Height: 188 cm (74") REVIEW OF SYSTEMS: 10 point ROS obtained and negative except left shoulder pain and recent PPM implantation PHYSICAL EXAM: General: 42 y.o. male appears stated age, in no acute distress HEENT: Normocephalic, atraumatic Neck: No thyroidmegaly Cardiovascular: Well perfused Pulmonary: Unlabored respirations Extremities: No cyanosis, clubbing, or edema Skin: Warm and dry Psychiatric: Appropriate mood and affect Musculoskeletal: No atrophy Neurologic: Antigravity strength in all extremities IMPRESSION: 1. Chronic left shoulder pain 2. Adhesive capsulitis of left shoulder PLAN: Left glenohumeral joint injection under US in this encounter Procedure Notes * Cameron Ruffin MD - 01/09/2018 12:15 PM CDT Associated Order(s): [facility] LARGE JOINT DRAIN/INJECT Post-Procedure Diagnose(s): Chronic left shoulder pain; Adhesive capsulitis of left shoulder Formatting of this note may be different from the original. Attending Surgeon: Cameron Ruffin MD Anesthesia: Local Pre-Procedure Diagnosis: 1. Chronic left shoulder pain 2. Adhesive capsulitis of left shoulder Post-Procedure Diagnosis: 1. Chronic left shoulder pain 2. Adhesive capsulitis of left shoulder Large Joint Drain/Inject Location: shoulder L glenohumeral Consent: Consent obtained: verbal and written Consent given by: patient Risks discussed: bleeding, damage to surrounding structures, hyperglycemia, infection, pain, skin discoloration and soft tissue reaction Discussed with patient the purpose of the treatment/procedure, other ways of treating my condition, including no treatment/ procedure and the risks and benefits of the alternatives. Patient has decided to proceed with treatment/ procedure. Doyle Protocol: Relevant documents: relevant documents present and verified Test results: test results available and properly labeled Imaging studies: imaging studies available Required items: required blood products, implants, devices, and special equipment available Site marked: the operative site was marked Patient identity confirmed: Patient identify confirmed verbally with patient. Time out: Immediately prior to procedure a "time out" was called to verify the correct patient, procedure, equipment, sales support rep and site/side marked as required Procedures Details: Indications: pain and diagnostic evaluation Prep: 2% chlorhexidine Guidance: ultrasound Justification for use of ultrasound guidance: The use of direct sonographic visualization of the needle was required to ensure accurate injection placement for diagnostic specificity, to maximize clinical efficacy and for safety purposes to minimize risk of bleeding or injury to nearby neurovascular structures Needle size: 25 G Approach: lateral Medications administered: 3 mL lidocaine PF 1% (10 mg/mL); 40 mg triamcinolone acetonide 40 mg/mL Patient tolerance: Patient tolerated the procedure well with no immediate complications. Pressure was applied, and hemostasis was accomplished. Estimated blood loss: none or minimal Specimens: none Patient tolerated the procedure well with no immediate complications. Pressure was applied, and hemostasis was accomplished. After written and verbal consent was obtained, the patient was provided with a left glenohumeral joint injection under ultrasound guidance. The glenohumeral joint was visualized with a curvilinear transducer. The area was marked and cleaned with chlorhexidine. Placing the curvilinear transducer in long access, a 2-inch 25-gauge needle was then inserted from lateral to medial. Once the needle was visualized to be within the joint, a solution containing 3 mL of 1% lidocaine and 40 mg triamcinolone was injected. Needle was removed and the area was cleaned. Band-Aid was applied. The patient was instructed to avoid swimming pools, bath tubs, or hot tubs for two to three days. in this encounter Plan of Treatment Not on fileas of this encounter Procedures Procedure Name Priority Date/Time Associated Diagnosis Comments [place] ARTHROCENTESIS Routine 01/09/2018 Chronic left shoulder Results for this ASPIR&/INJ MAJOR JT/BURSA 12:15 PM CDT pain procedure are in the W/US Adhesive capsulitis of results section. left shoulder in this encounter Results * [facility] LARGE JOINT DRAIN/INJECT (01/09/2018 12:15 PM) Narrative Performed At Cameron Ruffin MD 01/09/20181:55 PM OTHER OUTSIDE LAB Large Joint Drain/Inject Location: shoulder L glenohumeral Consent: Consent obtained: verbal and written Consent given by: patient Risks discussed: bleeding, damage to surrounding structures, hyperglycemia, infection, pain, skin discoloration and soft tissue reaction Discussed with patient the purpose of the treatment/procedure, other ways of treating my condition, including no treatment/ procedure and the risks and benefits of the alternatives. Patient has decided to proceed with treatment/procedure. Doyle Protocol: Relevant documents: relevant documents present and verified Test results: test results available and properly labeled Imaging studies: imaging studies available Required items: required blood products, implants, devices, and special equipment available Site marked: the operative site was marked Patient identity confirmed: Patient identify confirmed verbally with patient. Time out: Immediately prior to procedure a "time out" was called to verify the correct patient, procedure, equipment, sales support rep and site/side marked as required Procedures Details: Indications: pain and diagnostic evaluation Prep: 2% chlorhexidine Guidance: ultrasound Justification for use of ultrasound guidance: The use of direct sonographic visualization of the needle was required to ensure accurate injection placement for diagnostic specificity, to maximize clinical efficacy and for safety purposes to minimize risk of bleeding or injury to nearby neurovascular structures Needle size: 25 G Approach: lateral Medications administered: 3 mL lidocaine PF 1% (10 mg/mL); 40 mg triamcinolone acetonide 40 mg/mL Patient tolerance: Patient tolerated the procedure well with no immediate complications. Pressure was applied, and hemostasis was accomplished. Performing Organization Address City/State/Zipcode Phone Number OTHER OUTSIDE LAB in this encounter Visit Diagnoses Diagnosis Chronic left shoulder pain - Primary Pain in joint, shoulder region Adhesive capsulitis of left shoulder Adhesive capsulitis of shoulder Administered Medications Medication Order MAR Action Action Date Dose Rate Site lidocaine PF 1% (10 mg/mL) injection 3 Given 01/09/2018 3 mL mL 13:55 CDT 3 mL, Injection, ONCE PRN, 1 dose, Starting Tanya 01/09/18 at 1355, Until Tanya 01/09/18 at 1355 triamcinolone acetonide (KENALOG-40) Given 01/09/2018 40 mg injection 40 mg 13:55 CDT 40 mg, Injection, ONCE PRN, 1 dose, Starting Tanya 01/09/18 at 1355, Until Tanya 01/09/18 at 1355 in this encounter
--- OUTSIDE RECORDS SUMMARY | 2018-01-24 12:30 | XMS REPORT | Clinical Summary ---
Author Author [facility] Organization [facility] Address Unknown Phone Unavailable Care Team Providers Care Clip Coater Name Role Phone Nathan Lee MD PCP Source Comments Some departments are not documenting in the electronic medical record. If you do not see the information that you expected, contact Release of Information in the Health Information Management department at [phone] for further assistance in locating additional records.[facility] Allergies No Known Allergies Current Medications Prescription Sig. Disp. Refills Start End Date Status Date aspirin 325 mg tablet Take 1 tablet by mouth 03/28/20 Active daily. Take with food. 17 gabapentin (NEURONTIN) Take 1 capsule by mouth 30 capsule 05/01/19 Active 300 mg capsule at bedtime daily. 18 atorvastatin (LIPITOR) 40 Take 1 tablet by mouth 30 tablet 05/01/19 Active mg tablet daily. 18 baclofen (LIORESAL) 20 mg Take 1 tablet by mouth 90 tablet 1 05/01/19 Active tablet three times daily. [address] Take 1 tablet by mouth 30 tablet 05/01/19 Active (PROTONIX) 40 mg tablet daily. [...] 1 Dose. Hemp oil 2x day Active docosahexanoic acid/epa Take by mouth daily. Active (FISH OIL PO) COQ10 (UBIQUINOL) PO Take by mouth daily. Active NIACIN POIndications: Take by mouth daily. Active Unknown dose oxyCODONE/acetaminophen Take 1 tablet by mouth Active (PERCOCET; ENDOCET; every 4 hours as needed ROXICET) 5/325 mg tablet for Pain Active Problems Problem Noted Date History of DVT (deep vein thrombosis) 05/15/2017 Overview: - Hx of LE DVT provoked after injury in -> reported thrombophilia workup at that time negative - No family history of clots or miscarraiges - Presented to [facility] with R MCA artery thrombosis - Hematology was consulted while inpatient and performed thrombophilia workup - Activated Protein C, PNH flow, JAK2, BCRABL, Prothrombin gene mutation, [id number], anti cardiolipin, and lupus anticoagulant all negative [...] Encounters Date Type Specialty Care Team Description 01/15/2018 Ancillary Radiology Outpatient, Radiologist Diagnosis unknown Orders 01/09/2018 Procedure visit Rehabilitation Medicine Cameron Ruffin MD Chronic left shoulder pain (Primary Dx); Adhesive capsulitis of left shoulder 01/02/2018 Telephone Rehabilitation Medicine Cameron Ruffin MD Care Coordination 01/01/2018 Documentation Rehabilitation Medicine Cameron Ruffin MD 12/31/2017 Hospital Radiology Encounter 12/31/2017 Hospital Radiology Encounter 12/31/2017 Documentation Rehabilitation Medicine Cameron Ruffin MD 12/27/2017 Orders Only Rehabilitation Medicine Cameron Ruffin MD Chronic left shoulder pain (Primary Dx); Adhesive capsulitis of left shoulder 12/27/2017 Telephone Rehabilitation Medicine Cameron Ruffin MD Care Coordination 12/25/2017 Hospital Radiology Cameron Ruffin MD Encounter 12/25/2017 Office Visit Rehabilitation Medicine Alaina Vazquez Adhesive capsulitis of MD Jewel left shoulder (Primary Cameron Ruffin MD Dx); Chronic left shoulder pain; Spastic hemiplegia affecting left nondominant side, unspecified etiology (HCC); Decreased range of motion of left shoulder 12/02/2017 Procedure visit Rehabilitation Alaina Bess Spasticity (Primary Dx); MD Jewel Left spastic hemiparesis (HCC); Cerebrovascular accident (CVA) due to thrombosis of right middle cerebral artery (HCC); Chronic left shoulder pain 12/02/2017 Orders Only Rehabilitation Alaina Bess Spasticity (Primary Dx) MD Jewel 11/28/2017 Refill Rehabilitation Medicine Alaina Vazquez MD 11/13/2017 Telephone Rehabilitation Medicine Alaina Vazquez Letter (return to MD Jewel driving) from Last 3 Months Family History Medical [...] 8 01/09/2018 1:19 PM CDT Oxygen Saturation 94% 12/25/2017 2:07 PM CDT Inhaled Oxygen - - Concentration Weight 74.6 kg (164 lb 8 oz) 01/09/2018 1:19 PM CDT Height 188 cm (6' 2") 01/09/2018 1:19 PM CDT Body Mass Index 21.12 01/09/2018 1:19 PM CDT Plan of Treatment Health Maintenance Due Date Last Done Comments PHYSICAL (COMPREHENSIVE) 1984 EXAM PERTUSSIS VACCINE 1988 HIV SCREENING 1992 TETANUS VACCINE 1994 INFLUENZA VACCINE 11/06/2017 Implants Implanted Type Area Cigar Head Perforator Device Expiration Model / Identifier Date Serial / Lot Device Closure 70cm 8fr .038in Right: TERUMO:TERUMO [id number] 2017 [id number] / Angio-Seal Vip [employer]-Plus - Sn/A Femoral MED 1813 N/A / Implanted: Qty: 1 on 03/20/2017 by Artery [id number] Arben Diaz MD Procedures Procedure Name Priority Date/Time Associated Diagnosis Comments OK ARTHROCENTESIS Routine 01/09/2018 Chronic left shoulder Results for this ASPIR&/INJ MAJOR JT/BURSA 12:15 PM CDT pain procedure are in the W/US Adhesive capsulitis of results section. left shoulder GENERAL RAD CHEST Routine 12/31/2017 Diagnosis unknown Results for this EXTERNAL IMAGING 7:20 PM CDT procedure are in the results section. MRI UPPER EXT EXTERNAL Routine 12/31/2017 Diagnosis unknown Results for this IMAGING 11:35 AM CDT procedure are in the results section. SHOULDER MIN 2 VIEWS LEFT Routine 12/25/2017 Adhesive capsulitis of Results for this 3:04 PM CDT left shoulder procedure are in the Chronic left shoulder results section. pain OK CHEMODENERVATION 1 Routine 12/02/2017 Left spastic hemiparesis Results for this EXTREMITY EA ADDL 1-4 2:00 PM CDT ([facility]) procedure are in the MUSCLE Spasticity results section. OK CHEMODENERVATION 1 Routine 12/02/2017 Left spastic hemiparesis Results for this EXTREMITY 5 OR MORE 2:00 PM CDT ([facility]) procedure are in the MUSCLES Spasticity results section. OK NEEDLE EMG GUID Routine 12/02/2017 Left spastic hemiparesis Results for this W/CHEMODENERVATION 2:00 PM CDT ([facility]) procedure are in the Spasticity results section. from Last 3 Months Results * [facility] LARGE JOINT [...] Patient has decided to proceed with treatment/procedure. [facility] Protocol: Relevant documents: relevant documents present and [...] to verify the correct patient, procedure, equipment, clinical support associate and site/side marked as required Procedures Details: [...] Address City/State/Zipcode Phone Number OTHER OUTSIDE LAB * GENERAL RAD CHEST EXTERNAL IMAGING (12/31/2017 7:20 PM) Narrative Performed At This order has been auto finalized and does not contain a result. * MRI UPPER EXT EXTERNAL IMAGING (12/31/2017 11:35 AM) Narrative Performed At This order has been auto finalized and does not contain a result. * SHOULDER MIN 2 VIEWS LEFT (12/25/2017 [...] Procedure Visit Physical Medicine & Rehabilitation [facility] Date of Service: 12/02/2017 Date of last [...] the patient. Medication: Onabotulinumtoxin A Lot Number: [id number] Expiration Date: 06/2020 Total Amount Reconstituted: 300 Units Dilution: 1:1 The botulinum toxin was reconstituted in 3 mL of preservative free saline (Lot # [id number], Exp 06/2019) in a 100 Units to [...]
--- OUTSIDE RECORDS SUMMARY | 2018-01-24 12:30 | XMS REPORT | Encounter Summary ---
Author Author [facility] Organization [facility] Address Unknown Phone Unavailable Care Team Providers Care Service Captain Name Role Phone Nathan Lee MD PCP Reason for Visit * Reason Comments Care Coordination Encounter Details Date Type Department Care Team Description 01/02/2018 Telephone [place] Care Coordination Rehabilitative Medicine [address] [place] [address] [place] [address] [phone] Social History Tobacco Use Types Packs/Day Years [...] Telephone Encounter - Anu Delgado RN - 01/02/2018 3:12 PM CDT CHARLIE s/w Thomas, let him know Dr. Ruffin reviewed his shoulder MRI done at [facility] & said he is OK to proceed with POC, left shoulder injection 01/09/18 at [facility]. Patient said he is doing OK, recovering after his procedure to implant pacemaker but says his left shoulder is really sore since the procedure. Patient v/u the injection will be at [facility] and denies further needs at this time. in this encounter Plan of Treatment Not on fileas of this encounter Visit Diagnoses Not on filein this encounter
--- OUTSIDE RECORDS SUMMARY | 2018-01-24 12:30 | XMS REPORT | Encounter Summary ---
Author Author [facility] Organization [facility] Address Unknown Phone Unavailable Care Team Providers Care Custom Furrier Name Role Phone Nathan Lee MD PCP Encounter Details Date Type Department Care Team Description 12/31/2017 Hospital [facility] Encounter Hospital Radiology [facility] [address] [place] [address] Social History Tobacco Use Types Packs/Day Years [...] Take 1 tablet by mouth 90 tablet 2017 tablet three times daily. fluoxetine (PROZAC) [...] Procedure Name Priority Date/Time Associated Diagnosis Comments GENERAL RAD CHEST Routine 12/31/2017 Diagnosis unknown Results for this EXTERNAL IMAGING 7:20 PM CDT procedure are in the results section. in this encounter Results * GENERAL RAD CHEST EXTERNAL IMAGING (12/31/2017 7:20 PM) Narrative Performed At This order has been auto finalized and does not contain a result. in this encounter Visit Diagnoses Diagnosis Diagnosis unknown Other unknown and unspecified cause of morbidity or mortality
--- OUTSIDE RECORDS SUMMARY | 2018-01-24 12:30 | XMS REPORT | Encounter Summary ---
Author Author [facility] Organization [facility] Address Unknown Phone Unavailable Care Team Providers Care Marble Setter Helper Name Role Phone Nathan Lee MD PCP Encounter Details Date Type Department Care Team Description 12/31/2017 Hospital [facility] Encounter Hospital Radiology [facility] [address] [place] [address] Social History Tobacco Use Types Packs/Day Years [...] Procedure Name Priority Date/Time Associated Diagnosis Comments MRI UPPER EXT EXTERNAL Routine 12/31/2017 Diagnosis unknown Results for this IMAGING 11:35 AM CDT procedure are in the results section. in this encounter Results * MRI UPPER EXT EXTERNAL IMAGING (12/31/2017 11:35 AM) Narrative Performed At This order has been auto finalized and does not contain a result. in this encounter Visit Diagnoses Diagnosis Diagnosis unknown Other unknown and unspecified cause of morbidity or mortality
--- OUTSIDE RECORDS SUMMARY | 2018-01-24 12:31 | XMS REPORT | Encounter Summary ---
Author Author [facility] Organization [facility] Address Unknown Phone Unavailable Care Team Providers Care Email Administrator Name Role Phone Nathan Lee MD PCP Reason for Visit * Reason Comments Care Coordination Encounter Details Date Type Department Care Team Description 12/27/2017 Telephone [place] Care Coordination Rehabilitative Medicine [address] [place] [address] [place] [address] [phone] Social History Tobacco Use Types Packs/Day Years [...] MRI prior to injection scheduled 01/02 at [facility]. Patient is agreeable to this plan, did [...] would like to have the MRI at [facility] in [place]). in this encounter Plan of Treatment Not on fileas of this encounter Visit Diagnoses Not on filein this encounter
--- OUTSIDE RECORDS SUMMARY | 2018-01-24 12:31 | XMS REPORT | Encounter Summary ---
Author Author [facility] Organization [facility] Address Unknown Phone Unavailable Care Team Providers Care Candy Spreader Helper Name Role Phone No Pcp, Na PCP Unavailable Reason for Visit * Reason Comments Letter return to driving Encounter Details Date Type Department Care Team Description 11/13/2017 Telephone [facility] - Alaina Vazquez Letter ( return to Rehabilitation Medicine MD Jewel driving) Ortho and Medical [address] [place] [address] [phone] [place] [address] Social History Tobacco Use Types [...]
--- OUTSIDE RECORDS SUMMARY | 2018-01-24 12:31 | XMS REPORT | Encounter Summary ---
Author Author [facility] Organization [facility] Address Unknown Phone Unavailable Care Team Providers Care Auto Damage Adjuster Name Role Phone Nathan Lee MD PCP Encounter Details Date Type Department Care Team Description 12/25/2017 [facility] Cameron Ruffin MD Encounter [place] [facility] [address] [place] [address] [place] [address] [phone] Social History Tobacco Use Types Packs/Day Years [...]
--- OUTSIDE RECORDS SUMMARY | 2018-01-24 12:31 | XMS REPORT | Encounter Summary ---
Author Author [facility] Organization [facility] Address Unknown Phone Unavailable Care Team Providers Care Statement Services Representative Name Role Phone Nathan Lee MD PCP Reason for Referral * Pain Authorization (Routine) Status Reason Specialty Diagnoses / Referred By Referred To Procedures Contact Contact No Auth Needed Rehabilitation Diagnoses Cameron Ruffin [facility] Rehab Med Medicine Adhesive MD [place] [facility] capsulitis of [address] [place], [place] Chronic left [address] [phone] shoulder pain [place], [place] Phone: P [address] rocedures Phone: [facility] [phone] LARGE JOINT Fax: DRAIN/INJECT [phone] Reason for Visit * Reason Comments Pain * Consult, Test & Treat (Routine) Status Reason Specialty Diagnoses / Referred By Referred To Procedures Contact Contact No Auth Needed Specialty Rehabilitation Diagnoses Israel Vazquez Spn Rehab Med Services Medicine Chronic left Alaina Cl Required shoulder pain MD Jewel [address] [place] [address] Phone: Encounter Details Date Type Department Care Team Description 12/25/2017 Office Visit [facility] Alaina Vazquez Adhesive capsulitis of Rehabilitative Medicine MD Jewel left shoulder (Primary [address] Dx); [place] [address] [place] [address] Chronic left shoulder [phone] pain; Spastic hemiplegia S affecting left Cameron fitch MD nondominant side, [address] unspecified etiology [address] ([facility]); [place] [address] Decreased range of motion [phone] of left shoulder Social History Tobacco Use [...] under ultrasound guidance. I will schedule a [facility]. 5. Follow. Patient to follow-up for procedure. Thank you Dr. Vazquez for the opportunity to take part in the care of this very pleasant patient. Please feel free to call with questions or concerns. Addendum: MRI of the left shoulder from 12/31/2017 was personally viewed demonstrated mild tendinopathy of the supraspinatus. No evidence of labral tear. No osseous lesions. in this encounter Plan of Treatment Name [...]
--- OUTSIDE RECORDS SUMMARY | 2018-01-24 12:31 | XMS REPORT | Encounter Summary ---
Author Author [facility] Organization [facility] Address Unknown Phone Unavailable Care Team Providers Care Head Of Physics Name Role Phone No Pcp, Na PCP Unavailable Encounter Details Date Type Department Care Team Description 12/02/2017 Orders Only [facility] - Alaina Vazquez Spasticity (Primary Dx) Rehabilitation Medicine MD Jewel Ortho and Medical [address] [place] [address] [phone] [place] [address] Social History Tobacco Use Types [...]
--- OUTSIDE RECORDS SUMMARY | 2018-01-24 12:31 | XMS REPORT | Encounter Summary ---
Author Author [facility] Organization [facility] Address Unknown Phone Unavailable Care Team Providers Care Mine Geologist Name Role Phone No Pcp, Na PCP Unavailable Reason for Referral * Consult, Test & Treat (Routine) Status Reason Specialty Diagnoses / Referred By Referred To Procedures Contact Contact No Auth Needed Specialty Rehabilitation Diagnoses Israel Vazquez Spn Rehab Med Services Medicine Chronic left Alaina Cl Required shoulder pain MD Jewel [address] [place] [address] Phone: * Consult, Test & Treat (Routine) Status Reason Specialty Diagnoses / Referred By Referred To Procedures Contact Contact Closed Specialty Sports Medicine Diagnoses Abril Vazquez, Nathan Wiley, DO Services Chronic left Laaina [address] Required shoulder pain MD Jewel [place], [place] [address] [address] Phone: [place], [place] [phone] Reason for Visit * Reason Comments Follow Up botulinum toxin injections; left shoulder pain Encounter Details Date Type Department Care Team Description 12/02/2017 [facility] Alaina Vazquez Spasticity (Primary Dx); Rehabilitation Medicine MD Jewel Left spastic hemiparesis Ortho and Medical [address] (HCC); [address] [place] [address] Cerebrovascular accident [address] [phone] (CVA) due to thrombosis [place], [place] of right middle cerebral [address] artery (HCC); [phone] Chronic left shoulder pain Social History Tobacco [...] 2:00 PM CDT Associated Order(s): CHEMODENERVATION Procedure(s): IA CHEMODENERVATION 1 EXTREMITY EA ADDL 1-4 MUSCLE; IA CHEMODENERVATION 1 EXTREMITY 5 OR MORE MUSCLES; IA NEEDLE EMG GUID W/ CHEMODENERVATION Pre-Procedure Diagnose(s): Spasticity; Left spastic hemiparesis (HCC) Post-Procedure Diagnose(s): Spasticity; Left spastic hemiparesis (HCC) Formatting of this note may be different from the original. Neurorehabilitation Medicine - Procedure Visit Physical Medicine & Rehabilitation [facility] Date of Service: 12/02/2017 Date of last [...] the patient. Medication: Onabotulinumtoxin A Lot Number: [id number] Expiration Date: 06/2020 Total Amount Reconstituted: 300 Units Dilution: 1:1 The botulinum toxin was reconstituted in 3 mL of preservative free saline (Lot # [id number], Exp 06/2019) in a 100 Units to [...] Procedure Name Priority Date/Time Associated Diagnosis Comments IA CHEMODENERVATION 1 Routine 12/02/2017 Left spastic hemiparesis Results for this EXTREMITY EA ADDL 1-4 2:00 PM CDT ([facility]) procedure are in the MUSCLE Spasticity results section. IA CHEMODENERVATION 1 Routine 12/02/2017 Left spastic hemiparesis Results for this EXTREMITY 5 OR MORE 2:00 PM CDT ([facility]) procedure are in the MUSCLES Spasticity results section. IA NEEDLE EMG GUID Routine 12/02/2017 Left spastic hemiparesis Results for this W/CHEMODENERVATION 2:00 PM CDT ([facility]) procedure are in the Spasticity results section. in this encounter Results * CHEMODENERVATION (12/02/2017 2:00 PM) Narrative Performed At Alaina Vazquez MD 12/02/20173:40 PM IN CLINIC Neurorehabilitation Medicine - Procedure Visit Physical Medicine & Rehabilitation [facility] Date of Service: 12/02/2017 Date of last [...] the patient. Medication: Onabotulinumtoxin A Lot Number: [id number] Expiration Date: 06/2020 Total Amount Reconstituted: 300 Units Dilution: 1:1 The botulinum toxin was reconstituted in 3 mL of preservative free saline (Lot # [id number], Exp 06/2019) in a 100 Units to [...]
--- OUTSIDE RECORDS SUMMARY | 2018-01-24 12:31 | XMS REPORT | Encounter Summary ---
Author Author [facility] Organization [facility] Address Unknown Phone Unavailable Care Team Providers Care Glass Checker Name Role Phone Nathan Lee MD PCP Reason for Referral * Radiology Services (Routine) Status Reason Specialty Diagnoses / Referred By Referred To Procedures Contact Contact Authorized Radiology Diagnoses Cameron Ruffin, Princess left MD shoulder pain [address] capsulitis of [place] [address] [place] P [address] rocedures Phone: MRI UPPER EXTREM [phone] WO CONT LEFT Encounter Details Date Type Department Care Team Description 12/27/2017 Orders Only Cameron Felder MD Chronic left shoulder Rehabilitative Medicine [address] pain (Primary Dx); [address] [place] [address] [place] [address] left shoulder [phone] Social History Tobacco Use Types Packs/Day Years [...]
--- OUTSIDE RECORDS SUMMARY | 2018-01-24 12:31 | XMS REPORT | Encounter Summary ---
Author Author [facility] Organization [facility] Address Unknown Phone Unavailable Care Team Providers Care Seed Potato Cutter Name Role Phone No Pcp, Na PCP Unavailable Nathan Lee MD PCP Reason for Visit * Reason Comments Medication Refill Encounter Details Date Type Department Care Team Description 11/28/2017 Refill [facility] - Alaina Vazquez Rehabilitation Medicine MD Jewel Ortho and Medical [address] [place] [address] [phone] [place] [address] Social History Tobacco Use Types [...]
--- OUTSIDE RECORDS SUMMARY | 2018-01-24 12:32 | XMS REPORT | Continuity of Care Document ---
Author Author [facility] Organization [facility] Address Unknown Phone Unavailable Allergies Active Description Code Type Severity Reaction Onset Reported/Identified Relationship to Patient Clinical Status Yes No Known Drug Allergies [id number] Drug Allergy Unknown N/A 12/28/2009 Medications There [...] I48.0 PAROXYSMAL ATRIAL FIBRILLATION 07/25/2017 ALFREDO SU MD Ot I63.9 CEREBRAL INFARCTION, UNSPECIFIED 07/25/2017 ALFREDO SU MD Ot K21.9 GASTRO-ESOPHAGEAL REFLUX DISEASE WITHOUT 07/25/2017 ALFREDO SU MD Ot Z86.718 PERSONAL HISTORY OF OTHER VENOUS THROMBO 08/14/2017 ALFREDO SU MD Ot E78.5 HYPERLIPIDEMIA, UNSPECIFIED 08/14/2017 ALFREDO SU MD Ot I48.0 PAROXYSMAL ATRIAL FIBRILLATION 08/14/2017 ALFREDO SU MD Ot I63.9 CEREBRAL INFARCTION, UNSPECIFIED 08/14/2017 ALFREDO SU MD Ot K21.9 GASTRO-ESOPHAGEAL REFLUX DISEASE WITHOUT 08/14/2017 ALFREDO SU MD, Ot Z86.718 PERSONAL HISTORY OF OTHER VENOUS THROMBO 12/26/2017 ANTHONY GRAVES MD Ot D72.829 ELEVATED WHITE BLOOD CELL COUNT, UNSPECI 12/26/2017 ANTHONY GRAVES MD Ot M54.2 CERVICALGIA 12/26/2017 ANTHONY GRAVES MD Ot R25.8 OTHER ABNORMAL INVOLUNTARY MOVEMENTS 12/26/2017 ANTHONY GRAVES MD Ot R55 SYNCOPE AND COLLAPSE 12/26/2017 ANTHONY GRAVES MD Ot Z79.82 [facility] (CURRENT) USE OF ASPIRIN 12/26/2017 ANTHONY GRAVES MD Ot Z86.718 PERSONAL HISTORY OF OTHER VENOUS THROMBO 12/26/2017 ANTHONY GRAVES MD Ot Z86.73 PRSNL HX OF TIA (TIA), AND CEREB INFRC W 12/30/2017 ANTHONY GRAVES MD Ot D72.829 ELEVATED WHITE BLOOD CELL COUNT, UNSPECI 12/30/2017 ANTHONY GRAVES MD Ot M54.2 CERVICALGIA 12/30/2017 ANTHONY GRAVES MD Ot R25.8 OTHER ABNORMAL INVOLUNTARY MOVEMENTS 12/30/2017 ANTHONY GRAVES MD Ot R55 SYNCOPE AND COLLAPSE 12/30/2017 ANTHONY GRAVES MD Ot Z79.82 FITNESS AND WELLNESS COORDINATOR (CURRENT) USE OF ASPIRIN 12/30/2017 ANTHONY GRAVES MD Ot Z86.718 PERSONAL HISTORY OF OTHER VENOUS THROMBO 12/30/2017 ELY RANGEL, ANTHONY Barksdale Ot Z86.73 PRSNL HX OF TIA (TIA), AND CEREB INFRC W 01/01/2018 JESSIE SANTILLAN MD, Ot M75.02 ADHESIVE CAPSULITIS OF LEFT SHOULDER 01/01/2018 JESSIE SANTILLAN MD, Ot M75.82 OTHER SHOULDER LESIONS, LEFT SHOULDER 01/06/2018 ALFREDO SU MD Ot E78.2 MIXED HYPERLIPIDEMIA 01/06/2018 ALFREDO SU MD Ot I10 ESSENTIAL (PRIMARY) HYPERTENSION 01/06/2018 ALFREDO SU MD Ot I49.5 SICK SINUS SYNDROME 01/06/2018 ALFREDO SU MD Ot I69.354 HEMIPLGA FOLLOWING CEREBRAL INFRC AFFECT 01/06/2018 ALFREDO SU MD, Ot K21.9 GASTRO-ESOPHAGEAL REFLUX DISEASE WITHOUT 01/06/2018 ALFREDO SU MD Ot R00.1 BRADYCARDIA, UNSPECIFIED 01/06/2018 ALFREDO US MD Ot R55 SYNCOPE AND COLLAPSE 01/06/2018 ALFREDO SU MD Ot Z79.899 OTHER [facility] (CURRENT) DRUG THERAPY 01/06/2018 ALFREDO SU MD, Ot Z86.718 PERSONAL HISTORY OF OTHER VENOUS THROMBO 01/14/2018 JESSIE SANTILLAN MD, Ot M75.02 ADHESIVE CAPSULITIS OF LEFT SHOULDER 01/14/2018 JESSIE SANTILLAN MD, Ot M75.82 OTHER SHOULDER LESIONS, LEFT SHOULDER 01/15/2018 JESSIE SANTILLAN MD, Ot M75.02 ADHESIVE CAPSULITIS OF LEFT SHOULDER 01/15/2018 JESSIE SANITLLAN MD, Ot M75.82 OTHER SHOULDER LESIONS, LEFT SHOULDER Procedures There is no data. Results Test [...] urinalysis with reflex to culture NO NRG Automated blood complete blood count (hemogram) panel - 12/31/17 13:07 Blood leukocytes automated count (number/volume) 9.1 10*3/uL 4.3-11.0 Blood erythrocytes automated count (number/volume) 5.01 10*6/uL 4.35-5.85 Venous blood hemoglobin measurement (mass/volume) 16.3 g/dL 13.3-17.7 Blood hematocrit (volume fraction) 46 % 40-54 Automated erythrocyte mean corpuscular volume 91 [foz_us] 80-99 Automated erythrocyte mean corpuscular hemoglobin (mass per erythrocyte) 33 pg 25-34 Automated erythrocyte mean corpuscular hemoglobin concentration measurement ( mass/volume) 36 g/dL 32-36 Automated erythrocyte distribution width ratio 12.6 % 10.0-14.5 Automated blood platelet count (count/volume) 284 10*3/uL 130-400 Automated blood platelet mean volume measurement 9.9 [foz_us] 7.4-10.4 PT panel in platelet poor plasma by coagulation assay - 12/31/17 13:07 Prothrombin time (PT) in platelet poor plasma by coagulation assay 13.9 s 12.2-14.7 INR in platelet poor plasma or blood by coagulation assay 1.1 0.8-1.4 Activated partial thromboplastin time (aPTT) in platelet poor plasma bycoagulation assay - 12/31/17 13:07 Activated partial thromboplastin time (aPTT) in platelet poor plasma bycoagulation assay 28 s 24-35 Comprehensive metabolic panel - 12/31/17 13:07 Serum or plasma sodium measurement (moles/volume) 140 mmol/L 135-145 Serum or plasma potassium measurement (moles/volume) 4.3 mmol/L 3.6-5.0 Serum or plasma chloride measurement (moles/volume) 106 mmol/L 98-107 Carbon dioxide 29 mmol/L 21-32 Serum or plasma anion gap determination (moles/volume) 5 mmol/L 5-14 Serum or plasma urea nitrogen measurement (mass/volume) 16 mg/dL 7-18 Serum or plasma creatinine measurement (mass/volume) 0.91 mg/dL 0.60-1.30 Serum or plasma urea nitrogen/creatinine mass ratio 18 NRG Serum or plasma creatinine measurement with calculation of estimated glomerular filtration rate > NRG Serum or plasma glucose measurement (mass/volume) 79 mg/dL 70-105 Serum or plasma calcium measurement (mass/volume) 9.3 mg/dL 8.5-10.1 Serum or plasma total bilirubin measurement (mass/volume) 1.0 mg/dL 0.1-1.0 Serum or plasma alkaline phosphatase measurement (enzymatic activity/volume) 64 U/L 40-136 Serum or plasma aspartate aminotransferase measurement (enzymatic activity/ volume) 28 U/L 5-34 Serum or plasma alanine aminotransferase measurement (enzymatic activity/volume ) 57 U/L 0-55 Serum or plasma protein measurement (mass/volume) 7.6 g/dL 6.4-8.2 Serum or plasma albumin measurement (mass/volume) 4.3 g/dL 3.2-4.5 CALCIUM CORRECTED 9.1 mg/dL 8.5-10.1 Lipid 1996 panel - 12/31/17 13:07 Serum or plasma triglyceride measurement (mass/volume) 108 mg/dL <150 Serum or plasma cholesterol measurement (mass/volume) 121 mg/dL < 200 Serum or plasma cholesterol in HDL measurement (mass/volume) 38 mg/ dL 40-60 Cholesterol in LDL [mass/volume] in serum or plasma by direct assay 62 mg/dL 1-129 Serum or plasma cholesterol in VLDL measurement (mass/volume) 22 mg/ dL 5-40 Methicillin resistant Staphylococcus aureus (MRSA) screening culture - 13:07 Methicillin resistant Staphylococcus aureus (MRSA) screening culture NEG NRG Encounters ACCT No. Visit Date/Time Discharge Status Pt. Type Provider Facility Loc./Unit Complaint [id number] 10/11/2016 12:01:17 10/11/2016 23:59:59 CLS Outpatient Raina Foley [id number] 07/31/2016 09:24:08 07/31/2016 23:59:59 CLS Outpatient Nathan Childers [id number] 12/31/2017 12:40:00 01/01/2018 09:53:00 DIS Outpatient GEORGES RANGEL, ALFREDO [facility] CATH SSS,CVA,HLP [id number] 12/31/2017 11:07:00 12/31/2017 23:59:59 CLS Outpatient TYRELL RANGEL, JESSIE Holder [facility] RAD CHRONIC LT SHOULDER PAIN [id number] 12/26/2017 17:19:00 12/26/2017 20:00:00 DIS Emergency ELY RANGEL, ANTHONY Barksdale [facility] ER LOSS OF CONSCIOUSNESS, POSS SEIZURE,HX OF STROKE [id number] 07/24/2017 14:55:00 07/24/2017 23:59:59 CLS Outpatient GEORGES RANGEL, ALFREDO Solis [facility] CATH CVA [id number] 04/25/2017 15:20:00 04/25/2017 23:59:59 CLS Preadmit OTHER, UNLISTED [facility] REHAB CVA [id number] 03/20/2017 07:13:00 03/20/2017 09:28:00 DIS Emergency ELY RANGEL, ANTHONY Barksdale [facility] ER POSS STROKE [id number] 11/11/2013 14:18:00 11/11/2013 23:59:59 CLS Outpatient ISH CRAWFORD APRN [facility] RAD ABD PAIN [id number] 11/11/2013 06:51:00 11/11/2013 23:59:59 CLS Outpatient ISH CRAWFORD APRN [facility] RAD ABD PAIN
[2018-01-24] MEDS ORDERED: NS IV 1000 ML 1,000 ML IV ONE (13:36)
[2018-01-24 14:44] LABS: BILIRUBIN,URINE NEGATIVE (NEGATIVE); CLARITY,URINE CLEAR; COLOR,URINE YELLOW; GLUCOSE, URINE (UA) NEGATIVE (NEGATIVE); KETONES,URINE 1+ (NEGATIVE); LEUKOCYTE ESTERASE ,URINE NEGATIVE (NEGATIVE); NITRITE,URINE NEGATIVE (NEGATIVE); PH,URINE 6.5 (5-9); PROTEIN,URINE 2+ (NEGATIVE); UROBILINOGEN,URINE NORMAL (NORMAL)
[2018-01-24 14:53] LABS: BASOPHILS % (AUTO) 0 % (0-10); EOSINOPHILS # (AUTO) 0.1 10^3/uL (0.0-0.3); EOSINOPHILS % (AUTO) 1 % (0-10); HEMATOCRIT 51 % (40-54); HEMOGLOBIN 18.8 G/DL (13.3-17.7); LYMPHOCYTES # (AUTO) 1.8 X 10^3 (1.0-4.0); LYMPHOCYTES % (AUTO) 11 % (12-44); MEAN CORPUSCULAR HEMOGLOBIN 33 PG (25-34); MEAN CORPUSCULAR HGB CONC 37 G/DL (32-36); MEAN CORPUSCULAR VOLUME 89 FL (80-99); MEAN PLATELET VOLUME 10.3 FL (7.4-10.4); MONOCYTES # (AUTO) 0.7 X 10^3 (0.0-1.0); MONOCYTES % (AUTO) 4 % (0-12); NEUTROPHILS # (AUTO) 13.7 X 10^3 (1.8-7.8); NEUTROPHILS % (AUTO) 84 % (42-75); PLATELET COUNT 182 10^3/uL (130-400); RED BLOOD COUNT 5.67 10^6/uL (4.35-5.85); RED CELL DISTRIBUTION WIDTH 12.3 % (10.0-14.5); WHITE BLOOD COUNT 16.3 10^3/uL (4.3-11.0)
[2018-01-24 14:56] LABS: BACTERIA,URINE NEGATIVE /HPF; URINE OTHER MOD SPERM /HPF
[2018-01-24 15:11] LABS: ALANINE AMINOTRANSFERASE 65 U/L (0-55); ALBUMIN 4.6 GM/DL (3.2-4.5); ALKALINE PHOSPHATASE 72 U/L (40-136); BILIRUBIN,TOTAL 0.8 MG/DL (0.1-1.0); BUN/CREATININE RATIO 18; CALCIUM 9.8 MG/DL (8.5-10.1); CARBON DIOXIDE 24 MMOL/L (21-32); CHLORIDE 102 MMOL/L (98-107); CREATININE SERUM 0.96 MG/DL (0.60-1.30); GFR ESTIMATED > 60; GLUCOSE 93 MG/DL (70-105); MAGNESIUM 2.4 MG/DL (1.8-2.4); POTASSIUM 4.3 MMOL/L (3.6-5.0); SODIUM 138 MMOL/L (135-145); TOTAL PROTEIN 8.4 GM/DL (6.4-8.2)
[2018-01-24 15:13] LABS: BAND NEUTROPHILS 0 %; BASOPHILS % (MANUAL) 0 %; EOSINOPHILS % (MANUAL) 0 %; LYMPHOCYTES % (MANUAL) 13 %; MONOCYTES % (MANUAL) 0 %; NEUTROPHILS % (MANUAL) 87 %; RBC MORPH NORMAL
--- NOTE | 2018-01-24 16:13 | Diagnostic Imaging Report ---
INDICATION: Clinical concern for infection. Pacemaker.. TECHNIQUE: Two view chest 4:05 PM CORRELATION STUDY: 12/31/2017 FINDINGS: Left-sided dual-chamber pacemaker stable. Heart size, mediastinum and vasculature appear unchanged and unremarkable. The lungs are clear with no consolidating infiltrate. There is no significant pleural effusion or pneumothorax. Visualized osseous structures are unremarkable. IMPRESSION: 1. Stable, negative appearing chest. Dictated by: Dictated on workstation # [id number]
[2018-01-24] MEDS ORDERED: LEVETIRACETAM 500 MG (KEPPRA) TAB PO ONE (16:30)
--- NOTE | 2018-01-24 16:59 | ED Syncope ---
General Chief Complaint: General Problems/Pain Stated Complaint: LOSS OF CONCIOUSNESS Nursing Triage Note: PT STATED HE HAD AN "EPISODE" SIMILAR TO ONE HE HAD LAST MONTH WHEN HE WAS DIAGNOSED WITH SEIZURES. [employer] PACEMAKER ADVISED DR OFFICE THAT HE HAD PAUSE AROUND SAME TIME. PT HAD SHORT LOC. Source of Information: Patient, Old Records Exam Limitations: No Limitations History of Present Illness Date Seen by Provider: Jan 24, 2018 Time Seen by Provider: 13:36 Initial Comments This 42-year-old gentleman presents to the emergency room after having a syncopal episode at home. He contact his at 10:48 in the episode happened at some point prior to that. Patient has history of stroke last March leaving him with deficits on the left side. About one month ago he had an episode of unusual tremoring activity of the left arm which is his arm affected by the stroke. This episode was immediately followed by syncope. 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 He was started on Keppra. Cardiac monitoring via loop recorder revealed episodes of bradycardia. He then elected to discontinue Keppra thinking his episode was caused by bradycardia. Patient's monitor was interrogated by [employer]. He was noted to have an episode of SVT or atrial flutter lasting 11 seconds at 09: 39 per loop recorder. It is uncertain if this episode is related to his syncope. It does not seem to correlate perfectly with the timing. Patient stated he had tremoring of the left arm again prior to his syncopal episode today. Patient is at his baseline function and neurologic status at this time. Patient recently discovered he has family history of ARVD. He has had a pacemaker implanted. Allergies and Home Medications Allergies Coded Allergies: No Known Drug Allergies (Unverified , 12/28/09) Home Medications Cefuroxime Axetil 500 Mg Tablet, 500 MG PO BID Prescribed by: ALFREDO SU on 01/01/18 9636 Oxycodone HCl/Acetaminophen 1 Each Tablet, 1 EACH PO Q4H PRN for PAIN-MODERATE Prescribed by: ALFREDO SU on 01/01/18 8445 Patient Home Medication List Home Medication List Reviewed: Yes Review of Systems Constitutional: no symptoms reported EENTM: no symptoms reported Respiratory: no symptoms reported Cardiovascular: see HPI Gastrointestinal: no symptoms reported Genitourinary: no symptoms reported Musculoskeletal: no symptoms reported Skin: no symptoms reported Psychiatric/Neurological: See HPI Past Tlsejrn-Zengft-Extwti Hx Past Med/Social Hx: Reviewed and Corrections made Patient Social History Alcohol Use: Denies Use Recreational Drug Use: No Recent Foreign Travel: No Contact w/Someone Who Travel: No Recent Infectious Disease Expo: No Recent Hopitalizations: No Physical Abuse: No Sexual Abuse: No Immunizations Up To Date Tetanus Booster (TDap): Unknown PED Vaccines UTD: Yes Seasonal Allergies Seasonal Allergies: No Past Medical History Surgeries: Yes (cyst removed from chest, LOOP IMPLANT, UMBILICAL HERNIA) Abdominal, Pacemaker Respiratory: No Cardiac: Yes (stroke 2017, dvt right leg, sick sinus syndrome) Deep Vein Thrombosis (After leg fracture) Neurological: Yes Seizure Disorder, Stroke Reproductive Disorders: No Genitourinary: No Gastrointestinal: No Musculoskeletal: No Endocrine: Yes (hypo-testosterone) HEENT: No Cancer: No Psychosocial: No Integumentary: No Blood Disorders: No Family Medical History Reviewed and Corrections made Heart Disease (ARVD) Physical Exam Vital Signs Vital Signs - First Documented 01/24/18 13:13 Temp 98.0 Pulse 88 Resp 17 B/P (MAP) 129/86 (100) Pulse Ox 98 Capillary Refill : Less Than 3 Seconds Height, Weight, BMI Height: 6'2.00" Weight: 165lbs. 0.0oz. 74.927025gk; 20.5 BMI Method:Stated General Appearance: No Apparent Distress, WD/WN HEENT: PERRL/EOMI, Normal ENT Inspection Neck: Normal Inspection Cardiovascular: Regular Rate, Rhythm, No Edema, No Murmur, Normal Peripheral Pulses Respiratory: Lungs Clear, Normal Breath Sounds, No Accessory Muscle Use, No Respiratory Distress Gastrointestinal: Non Tender, Soft Extremities: Normal Inspection, No Pedal Edema Neurologic/Psychiatric: Alert, Oriented x3, Normal Mood/Affect, Facial Droop ( Left), Motor Weakness (Left extremities) Cranial Nerves: Normal Hearing, Normal Speech, PERRL Skin: Normal Color, Warm/Dry Progress/Results/Core Measures Results/Orders Lab Results Laboratory Tests Test 01/24/18 14:30 01/24/18 14:45 Range/Units Urine Color YELLOW Urine Clarity CLEAR Urine pH 6.5 5-9 Urine Specific Tiro 1.020 1.016-1.022 Urine Protein 2+ H NEGATIVE Urine Glucose (UA) NEGATIVE NEGATIVE Urine Ketones 1+ H NEGATIVE Urine Nitrite NEGATIVE NEGATIVE Urine Bilirubin NEGATIVE NEGATIVE Urine Urobilinogen NORMAL NORMAL MG/DL Urine Leukocyte Esterase NEGATIVE NEGATIVE Urine RBC (Auto) NEGATIVE NEGATIVE Urine RBC NONE /HPF Urine WBC NONE /HPF Urine Squamous Epithelial Cells NONE /HPF Urine Crystals NONE /LPF Urine Bacteria NEGATIVE /HPF Urine Casts NONE /LPF Urine Mucus NEGATIVE /LPF Urine Other MOD SPERM H /HPF Urine Culture Indicated NO White Blood Count 16.3 H 4.3-11.0 10^3/uL Red Blood Count 5.67 4.35-5.85 10^6/uL Hemoglobin 18.8 H 13.3-17.7 G/DL Hematocrit 51 40-54 % Mean Corpuscular Volume 89 80-99 FL Mean Corpuscular Hemoglobin 33 25-34 PG Mean Corpuscular Hemoglobin Concent 37 H 32-36 G/DL Red Cell Distribution Width 12.3 10.0-14.5 % Platelet Count 182 130-400 10^3/uL Mean Platelet Volume 10.3 7.4-10.4 FL Neutrophils (%) (Auto) 84 H 42-75 % Lymphocytes (%) (Auto) 11 L 12-44 % Monocytes (%) (Auto) 4 0-12 % Eosinophils (%) (Auto) 1 0-10 % Basophils (%) (Auto) 0 0-10 % Neutrophils # (Auto) 13.7 H 1.8-7.8 X 10^3 Lymphocytes # (Auto) 1.8 1.0-4.0 X 10^3 Monocytes # (Auto) 0.7 0.0-1.0 X 10^3 Eosinophils # (Auto) 0.1 0.0-0.3 10^3/uL Basophils # (Auto) 0.0 0.0-0.1 10^3/uL Neutrophils % (Manual) 87 % Lymphocytes % (Manual) 13 % Monocytes % (Manual) 0 % Eosinophils % (Manual) 0 % Basophils % (Manual) 0 % Band Neutrophils 0 % Blood Morphology Comment NORMAL Sodium Level 138 135-145 MMOL/L Potassium Level 4.3 3.6-5.0 MMOL/L Chloride Level 102 98-107 MMOL/L Carbon Dioxide Level 24 21-32 MMOL/L Anion Gap 12 5-14 MMOL/L Blood Urea Nitrogen 17 7-18 MG/DL Creatinine 0.96 0.60-1.30 MG/DL Estimat Glomerular Filtration Rate > 60 BUN/Creatinine Ratio 18 Glucose Level 93 70-105 MG/DL Calcium Level 9.8 8.5-10.1 MG/DL Corrected Calcium 8.5-10.1 MG/DL Magnesium Level 2.4 1.8-2.4 MG/DL Total Bilirubin 0.8 0.1-1.0 MG/DL Aspartate Amino Transf (AST/SGOT) 28 5-34 U/L Alanine Aminotransferase (ALT/SGPT) 65 H 0-55 U/L Alkaline Phosphatase 72 40-136 U/L Total Protein 8.4 H 6.4-8.2 GM/DL Albumin 4.6 H 3.2-4.5 GM/DL My Orders Orders - ANTHONY GRAVES MD Cbc With Automated Diff (01/24/18 13:36) Comprehensive Metabolic Panel (01/24/18 13:36) Magnesium (01/24/18 13:36) Ua Culture If Indicated (01/24/18 13:36) Saline Lock/Iv-Start (01/24/18 13:36) Ns Iv 1000 Ml (Sodium Chloride 0.9%) (01/24/18 13:36) Ekg Tracing (01/24/18 14:04) Monitor-Rhythm Ecg Trace Only (01/24/18 14:04) Manual Differential (01/24/18 14:45) Chest Pa/Lat (2 View) (01/24/18 14:59) Levetiracetam Tablet (Keppra Tablet) (01/24/18 16:30) Medications Given in ED Current Medications Medications Dose Ordered Sig/Troy Route Start Time Stop Time Status Last Admin Dose Admin Levetiracetam 500 mg ONCE ONCE PO 01/24/18 16:30 01/24/18 16:31 DC 01/24/18 17:08 500 MG Sodium Chloride 1,000 ml @ 0 mls/hr Q0M ONCE IV 01/24/18 13:36 01/24/18 13:38 DC 01/24/18 14:50 1,000 MLS/HR Vital Signs/I&O 01/24/18 01/24/18 13:13 16:23 Temp 98.0 Pulse 88 73 Resp 17 14 B/P (MAP) 129/86 (100) 129/85 (100) Pulse Ox 98 100 Blood Pressure Mean: 100 Progress Progress Note : Progress Note Case was reviewed with Dr. Wing who presented to the ER to evaluate the patient personally. Dr. Wing requested admission for observation. Per CHADS scoring, patient did not require anticoagulation. He'll be treated with aspirin alone for stroke prevention. Due to multiple episodes of seizure-like behavior with syncope, it is presumed that patient is having "anniversary seizures". I discussed the case with Dr. Mauro and Dr. Izaguirre, stroke neurologists at [facility]. Resuming treatment with Keppra was recommended. Patient did have some side effects with Keppra including agitation and loss of appetite. We discussed alternatives which might include Topamax 25 mg twice a day. However, Topamax may cause appetite suppression as well and also carries risk of renal stones. Oral hydration is important with Topamax and patient does sometimes struggles to drink well. Lamictal with a starting dose of 25 mg twice a day and increasing to 50 mg twice a day after 2 weeks was also considered. This medication has a frequent occurrence of severe rash. After discussing options with the patient, he elects to try Keppra again. 500 mg was given orally in the ER. Patient also received a liter of IV fluids. Leukocytosis was noted on the labs. No source of infection was identified. Patient was afebrile and denied any symptoms of acute infectious illness. Leukocytosis was felt to be secondary to seizure activity. Initial ECG Impression Date: Jan 24, 2018 Initial ECG Impression Time: 15:02 Initial ECG Rate: 67 Comment Atrial paced rhythm with no ST elevation or depression. No abnormal intervals or axis deviation. Diagnostic Imaging Diagonstic Imaging: Xray Plain Films/CT/US/NM/MRI: chest Comments NAME: SVEN MICHELE MED REC#: [id number] PT STATUS: REG ER : 1975 PHYSICIAN: ANTHONY GRAVES MD ADMIT DATE: 01/24/18/ER Signed Date of Exam: 01/24/18 CHEST PA/LAT (2 VIEW) INDICATION: Clinical concern for infection. Pacemaker.. TECHNIQUE: Two view chest 4:05 PM CORRELATION STUDY: 12/31/2017 FINDINGS: Left-sided dual-chamber pacemaker stable. Heart size, mediastinum and vasculature appear unchanged and unremarkable. The lungs are clear with no consolidating infiltrate. There is no significant pleural effusion or pneumothorax. Visualized osseous structures are unremarkable. IMPRESSION: 1. Stable, negative appearing chest. Dictated by: Dictated on workstation # [id number] Dict: 01/24/18 1609 Trans: 01/24/18 1611 Interpreted by: MAXWELL GUADARRAMA DO Electronically signed by: MAXWELL GUADARRAMA DO 01/24/18 1611 Departure Communication (Admissions) Time/Spoke to Admitting Phy: 16:30 Dr. Jo Time/Spoke to Consulting Phy: 15:30 Dr. Wing Impression Primary Impression: Syncopal episodes Qualified Codes: R55 - Syncope and collapse Additional Impressions: Seizure-like activity Paroxysmal atrial flutter Leukocytosis Qualified Codes: D72.829 - Elevated white blood cell count, unspecified Disposition: 09 ADMITTED INPATIENT Condition: Improved Admissions Decision to Admit Reason: Admit from ER (General) Decision to Admit/Date: Jan 24, 2018 Time/Decision to Admit Time: 15:30 Departure-Patient Inst. Referrals: EUSEBIA DEAL MD (PCP/Family) Primary Care Physician ANTHONY GRAVES MD Jan 24, 2018 16:59
--- OUTSIDE RECORDS SUMMARY | 2018-01-24 17:12 | XMS REPORT | Encounter Summary ---
Author Author [facility] Organization [facility] Address Unknown Phone Unavailable Care Team Providers Care Parachute Line Tier Name Role Phone Nathan Lee MD PCP Encounter Details Date Type Department Care Team Description 01/15/2018 Ancillary Rad Outpatient, Radiologist Diagnosis unknown Orders [address] [place] [address] Social History Tobacco Use Types Packs/Day Years [...]
--- OUTSIDE RECORDS SUMMARY | 2018-01-24 17:12 | XMS REPORT | Encounter Summary ---
Author Author [facility] Organization [facility] Address Unknown Phone Unavailable Care Team Providers Care Sample Mounter Name Role Phone Nathan Lee MD PCP Reason for Visit * Reason Comments Shoulder Pain Lt * Pain Authorization (Routine) Status Reason Specialty Diagnoses / Referred By Referred To Procedures Contact Contact No Auth Needed Rehabilitation Diagnoses Cameron Ruffin [facility] Rehab Med Medicine Adhesive [facility] capsulitis of [address] [place], [place] Chronic left [place] [phone] shoulder pain [place], [place] Phone: P [phone] rocedures Phone: AMB SPINE [phone] [facility] Fax: DRAIN/INJECT [phone] Encounter Details Date Type Department Care Team Description 01/09/2018 Procedure visit [facility] Cameron Ruffin MD Chronic left shoulder Physicians - Rehab [address] pain (Primary Dx); Medicine [place] [address] Adhes[address] capsulitis [place] [address] left shoulder [address] [phone] [place] [address] [phone] Social History Tobacco Use Types Packs/Day Years [...] History: Diagnosis Date DVT (deep venous thrombosis) ([facility]) following traumatic leg fracture. completed [...] has decided to proceed with treatment/ procedure. [facility] Protocol: Relevant documents: relevant documents present and [...] to verify the correct patient, procedure, equipment, administrative support assoc and site/side marked as required Procedures Details: [...] Procedure Name Priority Date/Time Associated Diagnosis Comments ND ARTHROCENTESIS Routine 01/09/2018 Chronic left shoulder Results [...] Patient has decided to proceed with treatment/procedure. [facility] Protocol: Relevant documents: relevant documents present and [...] to verify the correct patient, procedure, equipment, administrative support assoc and site/side marked as required Procedures Details: [...]
--- OUTSIDE RECORDS SUMMARY | 2018-01-24 17:12 | XMS REPORT | Clinical Summary ---
Author Author [facility] Organization [facility] Address Unknown Phone Unavailable Care Team Providers Care Chain Machine Operator Name Role Phone Nathan Lee MD PCP Source Comments Some departments are not documenting in the electronic medical record. 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 - Hematology was consulted while inpatient and performed thrombophilia workup - Activated Protein C, PNH flow, JAK2, BCRABL, Prothrombin gene mutation, [id number], anti cardiolipin, and lupus anticoagulant all negative [...] capsulitis of MD Jewel left shoulder (Primary Cmaeron Ruffin MD Dx); Chronic left shoulder pain; [...] Dx) MD Jewel 11/28/2017 Refill Rehabilitation Medicine Alania Vazquez MD 11/13/2017 Telephone Rehabilitation Medicine Alaina [...] INFLUENZA VACCINE 11/06/2017 Implants Implanted Type Area Compounding Assistant Device Expiration Model / Identifier Date Serial / Lot Device Closure 70cm 8fr .038in Right: TERUMO:TERUMO [id number] 2017 [id number] / Angio-Seal Vip [employer]dek-Plus - Sn/A Femoral MED 1813 N/A / Implanted: Qty: 1 on 03/20/2017 by Artery [id number] Arben Diaz MD Procedures Procedure Name Priority Date/Time Associated Diagnosis Comments PA ARTHROCENTESIS Routine 01/09/2018 Chronic left shoulder Results [...] the Chronic left shoulder results section. pain PA CHEMODENERVATION 1 Routine 12/02/2017 Left spastic hemiparesis Results for this EXTREMITY EA ADDL 1-4 2:00 PM CDT ([facility]) procedure are in the MUSCLE Spasticity results section. PA CHEMODENERVATION 1 Routine 12/02/2017 Left spastic hemiparesis Results for this EXTREMITY 5 OR MORE 2:00 PM CDT ([facility]) procedure are in the MUSCLES Spasticity results section. PA NEEDLE EMG GUID Routine 12/02/2017 Left spastic hemiparesis Results for this W/CHEMODENERVATION 2:00 PM CDT ([facility]) procedure are in the Spasticity results section. [...] Patient has decided to proceed with treatment/procedure. [place] Protocol: Relevant documents: relevant documents present and [...] to verify the correct patient, procedure, equipment, field support representative and site/side marked as required Procedures Details: [...] Procedure Visit Physical Medicine & Rehabilitation [facility] Date of Service: 12/02/2017 Date of [...] the patient. Medication: Onabotulinumtoxin A Lot Number: [id number] Expiration Date: 06/2020 Total Amount Reconstituted: 300 Units Dilution: 1:1 The botulinum toxin was reconstituted in 3 mL of preservative free saline (Lot # [id number], Exp 06/2019) in a 100 Units to [...]
--- OUTSIDE RECORDS SUMMARY | 2018-01-24 17:12 | XMS REPORT | Encounter Summary ---
Author Author [facility] Organization [facility] Address Unknown Phone Unavailable Care Team Providers Care Timber Cutter Name Role Phone Nathan Lee MD PCP Reason for Visit * Reason Comments Care Coordination Encounter Details Date Type Department Care Team Description 01/02/2018 Telephone [place] MD Care Coordination Rehabilitative Medicine [address] [place] [address] [place] [address] [phone] Social History Tobacco Use Types Packs/Day Years [...] Ruffin reviewed his shoulder MRI done at [facility] & said he is OK to proceed with POC, left shoulder injection 01/09/18 at [facility]. Patient said he is doing OK, recovering [...]
--- OUTSIDE RECORDS SUMMARY | 2018-01-24 17:13 | XMS REPORT | Encounter Summary ---
Author Author [facility] Organization [facility] Address Unknown Phone Unavailable Care Team Providers Care Emery Grinder Name Role Phone Nathan Lee MD PCP Encounter Details Date Type Department Care Team Description 12/31/2017 Documentation Cameron Felder MD Rehabilitative Medicine [address] [place] [address] [place] [address] [phone] Social History Tobacco Use Types Packs/Day Years [...] for Dr. An - cardiology clinic at [facility] in [place]. This patient had 14.5 second cardiac pause & they are planning to implant pacemaker today. Patient was concerned about shoulder MRI ordered by Dr. Ruffin as he will be unable to have this post op for at least [address] Ruffin spoke with Dr. An - agreed if PA was obtained for shoulder MRI today they would perform this US at [facility] prior to pacemaker implant. RN checked with precert, authorization was obtained - the PA & the order were faxed to [phone] nadine Arnold RN. in this encounter Plan of Treatment Not on fileas of this encounter Visit Diagnoses Not on filein this encounter
--- OUTSIDE RECORDS SUMMARY | 2018-01-24 17:13 | XMS REPORT | Encounter Summary ---
Author Author [facility] Organization [facility] Address Unknown Phone Unavailable Care Team Providers Care Director Federal Name Role Phone Nathan Lee MD PCP Encounter Details Date Type Department Care Team Description 01/01/2018 Documentation Cameron Felder MD Rehabilitative Medicine [address] [place] [address] [place] [address] [phone] Social History Tobacco Use Types Packs/Day Years [...] for imaging Left Shoulder MRI to [facility] , requested images be clouded or mailed by disc and report be faxed to [phone], confirmation fax received. in this encounter Plan of Treatment Not on fileas of this encounter Visit Diagnoses Not on filein this encounter
--- OUTSIDE RECORDS SUMMARY | 2018-01-24 17:13 | XMS REPORT | Encounter Summary ---
Author Author [facility] Organization [facility] Address Unknown Phone Unavailable Care Team Providers Care Shipping Specialist Name Role Phone Nathan Lee MD PCP Reason for Referral * Pain Authorization (Routine) Status Reason Specialty Diagnoses / Referred By Referred To Procedures Contact Contact No Auth Needed Rehabilitation Diagnoses Cameron Ruffin [facility] Rehab Med Medicine Adhesive MD [place] [facility] capsulitis of [address] [place], [place] Chronic left [place] [address] [phone] shoulder pain [place], [place] Phone: P [phone] rocedures Phone: [facility] [phone] LARGE JOINT Fax: DRAIN/INJECT [phone] Reason for Visit * Reason Comments Pain * Consult, Test & Treat (Routine) Status Reason Specialty Diagnoses / Referred By Referred To Procedures Contact Contact No Auth Needed Specialty Rehabilitation Diagnoses Israel Vazquez Spn Rehab Med Services Medicine Chronic left Alaina Cl Required shoulder pain MD Jewel [address] [place] [address] Phone: Encounter Details Date Type Department Care Team Description 12/25/2017 Office Visit Les Gannon Alaina Vazquez Adhesive capsulitis of Rehabilitative Medicine MD Jewel left shoulder (Primary [address] Dx); [place] [address] [place] [address] Chronic left shoulder [phone] pain; Spastic hemiplegia S affecting left Cameron fitch MD nondominant side, [address] unspecified etiology [address] ([facility]); [place] [address] Decreased range of motion [phone] of left shoulder Social History Tobacco Use [...] under ultrasound guidance. I will schedule a [facility]. 5. Follow. Patient to follow-up for procedure. [...]
--- OUTSIDE RECORDS SUMMARY | 2018-01-24 17:13 | XMS REPORT | Encounter Summary ---
Author Author [facility] Organization [facility] Address Unknown Phone Unavailable Care Team Providers Care Sweatband Cutting Machine Operator Name Role Phone Nathan Lee MD PCP Encounter Details Date Type Department Care Team Description 12/31/2017 Hospital The [facility] Encounter Hospital Radiology [facility] [address] [place] [address] Social History Tobacco Use Types Packs/Day Years [...]
--- OUTSIDE RECORDS SUMMARY | 2018-01-24 17:13 | XMS REPORT | Encounter Summary ---
Author Author [facility] Organization [facility] Address Unknown Phone Unavailable Care Team Providers Care Hhas Name Role Phone No Pcp, Na PCP Unavailable Encounter Details Date Type Department Care Team Description 12/02/2017 Orders Only [facility]aina Vazquez Spasticity (Primary Dx) Rehabilitation Medicine MD Jewel Ortho [facility] Medical [address] [place] [address] [phone] [place] [address] Social History Tobacco Use Types [...]
--- OUTSIDE RECORDS SUMMARY | 2018-01-24 17:13 | XMS REPORT | Encounter Summary ---
Author Author [facility] Organization [facility] Address Unknown Phone Unavailable Care Team Providers Care Instruments Sales Representative Name Role Phone Nathan Lee MD PCP Reason for Visit * Reason Comments Care Coordination Encounter Details Date Type Department Care Team Description 12/27/2017 Telephone [place]Cameron Bhatia MD Care Coordination Rehabilitative Medicine [address] [place] [address] [place] [address] [phone] Social History Tobacco Use Types Packs/Day Years [...] MRI prior to injection scheduled 01/02 at [facility]. Patient is agreeable to this plan, [...] would like to have the MRI at [facility] in [place]). in this encounter Plan of Treatment Not on fileas of this encounter Visit Diagnoses Not on filein this encounter
--- OUTSIDE RECORDS SUMMARY | 2018-01-24 17:13 | XMS REPORT | Encounter Summary ---
Author Author [facility] Organization [facility] Address Unknown Phone Unavailable Care Team Providers Care Ssis Architect Name Role Phone No Pcp, Na PCP Unavailable Nathan Lee MD PCP Reason for Visit * Reason Comments Medication Refill Encounter Details Date Type Department Care Team Description 11/28/2017 Refill [facility] - Alaina Vazquez Rehabilitation Medicine MD Jewel Ortho [facility] [address] [place] [address] [phone] [place] [address] Social History Tobacco Use Types [...]
--- OUTSIDE RECORDS SUMMARY | 2018-01-24 17:13 | XMS REPORT | Encounter Summary ---
Author Author [facility] Organization [facility] Address Unknown Phone Unavailable Care Team Providers Care Paper Conservator Name Role Phone Nathan Lee MD PCP Encounter Details Date Type Department Care Team Description 12/25/2017 [facility] Cameron Ruffin MD Encounter [place] [facility] [address] [place] [address] [place] [address] [phone] Social History Tobacco Use Types Packs/Day Years [...]
--- OUTSIDE RECORDS SUMMARY | 2018-01-24 17:13 | XMS REPORT | Encounter Summary ---
Author Author [facility] Organization [facility] Address Unknown Phone Unavailable Care Team Providers Care Purchase Price Analyst Name Role Phone No Pcp, Na PCP Unavailable Reason for Referral * Consult, Test & Treat (Routine) Status Reason Specialty Diagnoses / Referred By Referred To Procedures Contact Contact No Auth Needed Specialty Rehabilitation Diagnoses Israel Vazquez Spn Rehab Med Services Medicine Chronic left Alaina Cl Required shoulder pain MD Jewel [address] [place] [address] Phone: * Consult, Test & Treat (Routine) Status Reason Specialty Diagnoses / Referred By Referred To Procedures Contact Contact Closed Specialty Sports Medicine Diagnoses Abril Vazquez, Nathan Wiley, DO Services Chronic left Alaina [address] Required shoulder pain MD Jewel [place], [place] [address] [address] [address] Phone: [place], [place] [phone] Reason for Visit * Reason Comments Follow Up botulinum toxin injections; left shoulder pain Encounter Details Date Type Department Care Team Description 12/02/2017 Procedure visit [facility] - Alaina Vazquez Spasticity (Primary Dx); Rehabilitation Medicine MD Jewel Left spastic hemiparesis Ortho and Medical [address] (HCC); [address] [place] [address] Cerebrovascular accident [address] [phone] (CVA) due to thrombosis [place], [place] of right middle cerebral [phone] artery (HCC); [phone] Chronic left shoulder pain Social History Tobacco [...] Procedure Visit Physical Medicine & Rehabilitation [facility] Date of Service: 12/02/2017 Date [...] the patient. Medication: Onabotulinumtoxin A Lot Number: [id number] Expiration Date: 06/2020 Total Amount Reconstituted: 300 Units Dilution: 1:1 The botulinum toxin was reconstituted in 3 mL of preservative free saline (Lot # [id number], Exp 06/2019) in a 100 Units to [...] EXTREMITY EA ADDL 1-4 2:00 PM CDT ([facility]) procedure are in the MUSCLE Spasticity results section. IA CHEMODENERVATION 1 Routine 12/02/2017 Left spastic hemiparesis Results for this EXTREMITY 5 OR MORE 2:00 PM CDT ([facility]) procedure are in the MUSCLES Spasticity results section. [place] NEEDLE EMG GUID Routine 12/02/2017 Left spastic hemiparesis Results for this W/CHEMODENERVATION 2:00 PM CDT ([facility]) procedure are in the Spasticity results section. in this encounter Results * CHEMODENERVATION (12/02/2017 2:00 PM) Narrative Performed At Alaina Vazquez MD 12/02/20173:40 PM IN CLINIC Neurorehabilitation Medicine - Procedure Visit Physical Medicine & Rehabilitation [facility] Date of Service: 12/02/2017 Date [...] the patient. Medication: Onabotulinumtoxin A Lot Number: [id number] Expiration Date: 06/2020 Total Amount Reconstituted: 300 Units Dilution: 1:1 The botulinum toxin was reconstituted in 3 mL of preservative free saline (Lot # [id number], Exp 06/2019) in a 100 Units to [...]
--- OUTSIDE RECORDS SUMMARY | 2018-01-24 17:13 | XMS REPORT | Encounter Summary ---
Author Author [facility] Organization [facility] Address Unknown Phone Unavailable Care Team Providers Care Dairy Specialist Name Role Phone No Pcp, Na PCP Unavailable Reason for Visit * Reason Comments Letter return to driving Encounter Details Date Type Department Care Team Description 11/13/2017 Telephone [facility] - Alaina Vazquez Letter ( return to Rehabilitation Medicine MD Jewel driving) Ortho and Medical [address] [place] [address] [phone] [place] [address] Social History Tobacco Use Types [...]
--- OUTSIDE RECORDS SUMMARY | 2018-01-24 17:13 | XMS REPORT | Encounter Summary ---
Author Author [facility] Organization [facility] Address Unknown Phone Unavailable Care Team Providers Care Rheostat Assembler Name Role Phone Nathan Lee MD PCP Reason for Referral * Radiology Services (Routine) Status Reason Specialty Diagnoses / Referred By Referred To Procedures Contact Contact Authorized Radiology Diagnoses Cameron Ruffin, Princess left MD shoulder pain [address] capsulitis of [place] [address] [place] P [address] rocedures Phone: MRI UPPER EXTREM [phone] WO CONT LEFT Encounter Details Date Type Department Care Team Description 12/27/2017 Orders Only Cameron Felder MD Chronic left shoulder Rehabilitative Medicine [address] pain (Primary Dx); [address] [place] [address] [place] [address] left shoulder [phone] Social History Tobacco Use Types Packs/Day Years [...]
--- OUTSIDE RECORDS SUMMARY | 2018-01-24 17:13 | XMS REPORT | Encounter Summary ---
Author Author [facility] Organization [facility] Address Unknown Phone Unavailable Care Team Providers Care Nuclear Weapons Mechanical Specialist Name Role Phone Nathan Lee MD PCP Encounter Details Date Type Department Care Team Description 12/31/2017 Hospital [facility] Encounter Hospital Radiology [facility] [address] in [address] [place] [address] Social History Tobacco Use Types Packs/Day Years [...]
--- OUTSIDE RECORDS SUMMARY | 2018-01-24 17:14 | XMS REPORT | Continuity of Care Document ---
Author Author [facility] Organization [facility] Address Unknown Phone Unavailable Allergies Active Description Code Type Severity Reaction Onset Reported/Identified Relationship to Patient Clinical Status Yes No Known Drug Allergies [id number] Drug Allergy Unknown N/A 12/28/2009 Medications There [...] GRAVES MD Ot M54.2 CERVICALGIA 12/26/2017 ANTHONY GRAVSE MD Ot R25.8 OTHER ABNORMAL INVOLUNTARY MOVEMENTS 12/26/2017 ANTHONY GRAVES MD Ot R55 SYNCOPE AND COLLAPSE 12/26/2017 ANTHONY GRAVES MD Ot Z79.82 ASSISTED (CURRENT) USE OF ASPIRIN 12/26/2017 ANTHONY GRAVES MD Ot Z86.718 PERSONAL HISTORY OF OTHER VENOUS THROMBO 12/26/2017 ANTHONY GRAVES MD Ot Z86.73 PRSNL HX OF TIA (TIA), AND CEREB INFRC W 12/30/2017 ANTHONY GRAVES MD Ot D72.829 ELEVATED WHITE BLOOD CELL COUNT, UNSPECI 12/30/2017 ANTHONY RGAVES MD Ot M54.2 CERVICALGIA 12/30/2017 ANTHONY GRAVES MD Ot R25.8 OTHER ABNORMAL INVOLUNTARY MOVEMENTS 12/30/2017 ANTHONY GRAVES MD Ot R55 SYNCOPE AND COLLAPSE 12/30/2017 ANTHONY GRAVES MD Ot Z79.82 DRUG REGULATORY AFFAIRS SPECIALIST (CURRENT) USE OF ASPIRIN 12/30/2017 ANTHONY GRAVES [...] Ot I49.5 SICK SINUS SYNDROME 01/06/2018 ALFREDO US MD Ot I69.354 HEMIPLGA FOLLOWING CEREBRAL INFRC AFFECT 01/06/2018 ALFREDO SU MD, Ot K21.9 GASTRO-ESOPHAGEAL REFLUX DISEASE WITHOUT 01/06/2018 ALFREDO SU MD Ot R00.1 BRADYCARDIA, UNSPECIFIED 01/06/2018 ALFREDO SU MD Ot R55 SYNCOPE AND COLLAPSE 01/06/2018 ALFREDO SU MD Ot Z79.899 OTHER ASSISTED (CURRENT) DRUG THERAPY 01/06/2018 ALFREDO SU MD, Ot Z86.718 PERSONAL HISTORY OF OTHER VENOUS THROMBO 01/14/2018 JESSIE SANTILLAN MD, Ot M75.02 ADHESIVE CAPSULITIS OF LEFT SHOULDER 01/14/2018 JESSIE SANTILLAN MD, Ot M75.82 OTHER SHOULDER LESIONS, LEFT SHOULDER 01/15/2018 JESSIE SANTILLAN MD, Ot M75.02 ADHESIVE CAPSULITIS OF LEFT SHOULDER 01/15/2018 JESSIE SANTILLAN MD, Ot M75.82 OTHER SHOULDER [...] Status Pt. Type Provider Facility Loc./Unit Complaint [id number] 10/11/2016 12:01:17 10/11/2016 23:59:59 CLS Outpatient Raina Foley [id number] 07/31/2016 09:24:08 07/31/2016 23:59:59 CLS Outpatient Nathan Childers [id number] 12/31/2017 12:40:00 01/01/2018 09:53:00 DIS Outpatient GEORGES RANGEL, ALFREDO Sol[facility] CATH SSS,CVA,HLP [id number] 12/31/2017 11:07:00 12/31/2017 23:59:59 CLS Outpatient TYRELL RANGEL, JESSIE Holder [facility] RAD CHRONIC LT SHOULDER PAIN [id number] 12/26/2017 17:19:00 12/26/2017 20:00:00 DIS Emergency ELY RANGEL, ANTHONY [place] [facility] ER LOSS OF CONSCIOUSNESS, POSS SEIZURE,HX OF STROKE [id number] 07/24/2017 14:55:00 07/24/2017 23:59:59 CLS Outpatient GEORGES RANGEL, ALFREDO [facility] CATH CVA [id number] 04/25/2017 15:20:00 04/25/2017 23:59:59 CLS Preadmit OTHER, UNLISTED [facility] REHAB CVA [id number] 03/20/2017 07:13:00 03/20/2017 09:28:00 DIS Emergency ELY RANGEL, ANTHONY [place] [facility] ER POSS STROKE [id number] 11/11/2013 14:18:00 11/11/2013 23:59:59 CLS Outpatient ISH CRAWFORD APRN [facility] RAD ABD PAIN [id number] 11/11/2013 06:51:00 11/11/2013 23:59:59 CLS Outpatient ISH CRAWFORD APRN [facility] RAD ABD PAIN
[2018-01-24 17:30] VITALS: BP 145/90
[2018-01-24] MEDS ORDERED: ANTACID SUSP 30 ML UDC (MYLANTA) PO ONE (18:15)
[2018-01-24] MEDS ORDERED: PANTOPRAZOLE 40 MG (PROTONIX) TAB PO ONE (18:15)
[2018-01-24] MEDS ORDERED: ANTACID SUSP 30 ML UDC (MYLANTA) PO PRN (18:15)
[2018-01-24] MEDS ORDERED: FLU QUADRIvalent (5+ YOA) 2018-2019 (AFLURIA) 0.5 ML IM ONE (19:45)
[2018-01-24 20:15] VITALS: BP 132/82
--- NOTE | 2018-01-24 21:04 | Consultation-Cardiology ---
HPI-Cardiology Cardiology Consultation: Date of Consultation 01/24/18 Date of Admission Attending Physician Vik Jo MD Admitting Physician Nathan Lee MD Consulting Physician Joann WING MD HPI: Time Seen by a Provider: 15:00 Chief Complaint: Syncope This is a 42 year old male with history of stroke last year, family history of sudden cardiac and ARVD in two uncles, severe sinus node dysfunction requiring permanent pacemaker implantation by Dr An three weeks ago. He presents with episode of syncope. He denies any other cardiac complaints. Review of Systems-Cardiology Review of Systems Constitutional: As described under HPI; No As described under HPI, No no symptoms reported, No chills, No fever, No lightheadedness Eyes: No As described under HPI, No no symptoms reported, No blindness, No blurred vision, No contact lenses, No drainage, No decreased acuity, No foreign body sensation, No pain, No vision change Ears/Nose/Throat: No As described under HPI, No no symptoms reported, No chronic hearing loss, No ear discharge, No ear pain, No nasal drainage, No ulcerations Respiratory: No no symptoms reported; As described under HPI; No As described under HPI, No cough, No orthopnea, No shortness of breath, No SOB with excertion Cardiovascular: No no symptoms reported; As described under HPI; No As described under HPI, No chest pain, No edema, No irregular heart rate, No lightheadedness, No palpitations; syncope Gastrointestinal: No no symptoms reported, No As described under HPI, No abdomen distended, No abdominal pain, No blood streaked bowels, No constipation , No diarrhea, No nausea, No vomiting, No stool coloration changes Genitourinary: No As described under HPI, No burning, No dysuria, No discharge , No frequency, No flank pain, No hematuria, No urgency Musculoskeletal: No no symptoms reported, No As describe under HPI, No back pain, No gout, No joint pain, No joint swelling, No muscle pain, No muscle stiffness, No neck pain, No other Skin: No rash, No skin related problems, No ulcerations Psychiatric/Neurological: No anxiety, No depression, No seizure, No focal weakness, No syncope Hematologic: No bleeding abnormalities QEU-Scwvmc-Peksmb Hx Patient Social History Alcohol Use: Denies Use Recreational Drug Use: No Smoking Status: Never a Smoker Recent Foreign Travel: No Recent Infectious Disease Expo: No Physical Abuse Screen: No Sexual Abuse: No Immunizations Up To Date Tetanus Booster (TDap): Unknown Past Medical History PMH As described under Assessment. Family Medical History Family History: Patient reports no known family medical history. Allergies and Home Medications Allergies Coded Allergies: No Known Drug Allergies (Unverified , 12/28/09) Home Medications Cefuroxime Axetil 500 Mg Tablet, 500 MG PO BID Prescribed by: ALFREDO AN on 01/01/18 0740 Oxycodone HCl/Acetaminophen 1 Each Tablet, 1 EACH PO Q4H PRN for PAIN-MODERATE Prescribed by: ALFREDO AN on 01/01/18 0933 Patient Home Medication List Home Medication List Reviewed: Yes Physical Exam-Cardiology Physical Exam Vital Signs/I&O 01/24/18 01/24/18 01/24/18 01/24/18 13:13 16:23 17:30 18:51 Temp 98.0 96.8 Pulse 88 73 73 Resp 17 14 18 B/P (MAP) 129/86 (100) 129/85 (100) 145/90 (108) Pulse Ox 98 100 97 O2 Delivery Room Air Room Air Capillary Refill : Less Than 3 Seconds Constitutional: appears stated age, AAO x 3; No apparent distress; well- developed, well-nourished HEENT: PERRL; No normal ENT inspection, No TMs normal, No pharynx normal, No scleral icterus (R), No scleral icterus (L), No pale conjunctivae (R), No pale conjunctivae (L), No photophobia, No TM abnormal (R), No TM abnormal (L), No pharyngeal erythema, No tonsillar exudate, No other, No discharge, No EOMI; hearing is well preserved; No hard of hearing; oral hygience is good; No ulceration, No xanthelasmas are seen Neck: No non-tender, No full range of motion, No supple, No normal inspection, No carotid bruit, No limited range of motion, No lymphadenopathy (R), No lymphadenopathy (L), No tender lateral, No tender midline, No thyromegaly, No other; carotid pulses are 2 + bilaterally; No with good upstrokes Respiratory: chest is bilaterally symmetric, lungs clear to auscultation Cardiovascular: regular rate-rhythm, S1 and S2 Gastrointestinal: No tender, No soft, No round, No distended, No pulsatile mass , No organomegaly, No guarding, No rebound, No tenderness, No hernia, No mass, No audible bowel sounds, No abnormal bowel sounds, No abdominal bruits, No spleenomegaly, No other Rectal: deferred Extremities: No normal range of motion, No non-tender, No normal inspection, No pedal edema, No calf tenderness, No normal capillary refill, No pelvis stable , No calf tenderness, No inflammation, No pedal edema, No slow capillary refill , No swelling, No other, No abrasion, No clubbing, No cyanosis, No ecchymosis, No laceration, No no lower extremity edema bilateral, No significant edema, No tenderness, No wound Neurologic/Psychiatric: no motor/sensory deficits, alert, normal mood/affect, oriented x 3, power is 5/5 both on sides Skin: No normal color, No warm/dry, No cyanosis, No cool, No diaphoresis, No damp, No ecchymosis, No jaundice, No mottled, No pallor, No rash, No tattoos/ piercings, No ulcerations, No rash on exposed areas, No ulcerations on exposed areas, No other Data Review Labs Laboratory Tests 01/24/18 14:30: Urine Color YELLOW, Urine Clarity CLEAR, Urine pH 6.5, Urine Specific [place] 1.020, Urine Protein 2+H, Urine Glucose (UA) NEGATIVE, Urine Ketones 1+H, Urine Nitrite NEGATIVE, Urine Bilirubin NEGATIVE, Urine Urobilinogen NORMAL, Urine Leukocyte Esterase NEGATIVE, Urine RBC (Auto) NEGATIVE, Urine RBC NONE, Urine WBC NONE, Urine Squamous Epithelial Cells NONE, Urine Crystals NONE, Urine Bacteria NEGATIVE, Urine Casts NONE, Urine Mucus NEGATIVE, Urine Other MOD SPERMH, Urine Culture Indicated NO 01/24/18 14:45: White Blood Count 16.3H, Red Blood Count 5.67, Hemoglobin 18.8H, Hematocrit 51, Mean Corpuscular Volume 89, Mean Corpuscular Hemoglobin 33, Mean Corpuscular Hemoglobin Concent 37H, Red Cell Distribution Width 12.3, Platelet Count 182, Mean Platelet Volume 10.3, Neutrophils (%) (Auto) 84H, Lymphocytes (%) (Auto) 11L, Monocytes (%) (Auto) 4, Eosinophils (%) (Auto) 1, Basophils (%) (Auto) 0, Neutrophils # (Auto) 13.7H, Lymphocytes # (Auto) 1.8, Monocytes # (Auto) 0.7, Eosinophils # (Auto) 0.1, Basophils # (Auto) 0.0, Neutrophils % (Manual) 87, Lymphocytes % (Manual) 13, Monocytes % (Manual) 0, Eosinophils % (Manual) 0, Basophils % (Manual) 0, Band Neutrophils 0, Blood Morphology Comment NORMAL, Sodium Level 138, Potassium Level 4.3, Chloride Level 102, Carbon Dioxide Level 24, Anion Gap 12, Blood Urea Nitrogen 17, Creatinine 0.96, Estimat Glomerular Filtration Rate > 60, BUN/Creatinine Ratio 18, Glucose Level 93, Calcium Level 9.8, Corrected Calcium , Magnesium Level 2.4, Total Bilirubin 0.8, Aspartate Amino Transf (AST/SGOT) 28, Alanine Aminotransferase (ALT/SGPT) 65H, Alkaline Phosphatase 72, Total Protein 8.4H, Albumin 4.6H ECG Impression ECG Initial ECG Rhythm: Normal Sinus A/P-Cardiology Assessment/Admission Diagnosis Possible Syncope, History of Stroke, Recent PPM for severe sinus node dysfunction, Family history of ARVD and SCD in the family, Atrial Flutter on PPM Interrogation. Plan Unclear etiology for Syncope - Neurological vs Cardiac. Device Interrogation did not reveal any Asystole, VT, VF, Bradycardia. 11 second episode of narrow complex tachycardia at 400 ms cycle length, likely atrial flutter. I doubt that his cause of syncope is cardiac considering that we have telemetry via the device. Admit for observation. Atrial Flutter: only on aspirin. If CVA last year was because of atrial flutter/ AF then his CHADSVASC score will be 2 and he will be candidate for oral anticoagulation therapy with NOACs. H/o ARVD in family: EKG does not reveal ARVD in patient, however EKG has poor sensitivity for ARVD. Will review previous Echo. However, that patient told me that he has had numerous echos and NICKO at which were all normal and he took part in numerous high endurance sports including swimming without any issues. Thank you for your consultation. Please call me if you have any questions. Odalys Wing MD, FACP, FACC, FSCAI, FHRS, CCDS Interventional Cardiology Cardiac Electrophysiology Vascular Medicine and Endovascular Interventions Clinical Quality Measures DVT/VTE Risk/Contraindication: Risk Factor Score Per Nursin RFS Level Per Nursing on Admit: 4+=Very High Joann WING MD Jan 24, 2018 9:04 pm
[2018-01-24] MEDS ORDERED: BACLOFEN 10 MG (LIORESAL) TAB PO PRN (22:45)
[2018-01-24] MEDS ORDERED: LORazepam INJ 2 MG/ML (ATIVAN) VIAL ONE (22:47)
[2018-01-24] MEDS: LEVETIRACETAM 500 MG (KEPPRA) TAB PO SCH (22:53)
[2018-01-24] MEDS ORDERED: LORazepam INJ 2 MG/ML (ATIVAN) VIAL IVP PRN (23:00)
[2018-01-25] VITALS: BP 122/76
[2018-01-25 04:00] VITALS: BP 128/82
[2018-01-25 06:15] LABS: BASOPHILS % (AUTO) 0 % (0-10); EOSINOPHILS # (AUTO) 0.1 10^3/uL (0.0-0.3); EOSINOPHILS % (AUTO) 1 % (0-10); HEMATOCRIT 46 % (40-54); HEMOGLOBIN 16.1 G/DL (13.3-17.7); LYMPHOCYTES # (AUTO) 1.7 X 10^3 (1.0-4.0); LYMPHOCYTES % (AUTO) 18 % (12-44); MEAN CORPUSCULAR HEMOGLOBIN 32 PG (25-34); MEAN CORPUSCULAR HGB CONC 35 G/DL (32-36); MEAN CORPUSCULAR VOLUME 91 FL (80-99); MEAN PLATELET VOLUME 9.5 FL (7.4-10.4); MONOCYTES # (AUTO) 0.9 X 10^3 (0.0-1.0); MONOCYTES % (AUTO) 9 % (0-12); NEUTROPHILS # (AUTO) 6.7 X 10^3 (1.8-7.8); NEUTROPHILS % (AUTO) 71 % (42-75); PLATELET COUNT 257 10^3/uL (130-400); RED BLOOD COUNT 5.09 10^6/uL (4.35-5.85); RED CELL DISTRIBUTION WIDTH 12.4 % (10.0-14.5); WHITE BLOOD COUNT 9.4 10^3/uL (4.3-11.0)
[2018-01-25 06:34] LABS: ALANINE AMINOTRANSFERASE 45 U/L (0-55); ALBUMIN 3.9 GM/DL (3.2-4.5); ALKALINE PHOSPHATASE 62 U/L (40-136); BILIRUBIN,TOTAL 1.1 MG/DL (0.1-1.0); BUN/CREATININE RATIO 16; CALCIUM 9.1 MG/DL (8.5-10.1); CARBON DIOXIDE 21 MMOL/L (21-32); CHLORIDE 107 MMOL/L (98-107); CREATININE SERUM 0.96 MG/DL (0.60-1.30); GFR ESTIMATED > 60; GLUCOSE 105 MG/DL (70-105); SODIUM 139 MMOL/L (135-145)
[2018-01-25] MEDS ORDERED: PANTOPRAZOLE 40 MG (PROTONIX) TAB PO SCH (07:00)
[2018-01-25 08:07] VITALS: BP 126/77
[2018-01-25] MEDS ORDERED: ASPIRIN 325 MG (5 GR) TABLET PO SCH (09:00)
[2018-01-25] MEDS: LEVETIRACETAM 500 MG (KEPPRA) TAB PO SCH (09:03)
[2018-01-25] MEDS ORDERED: LEVE500T99 PO (09:32)
--- NOTE | 2018-01-25 09:43 | Short Stay Summary-Hospitalist ---
History of Present Illness HPI/Chief Complaint Mr. 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 He had a rather extensive workup with no definitive cause being identified. Since that time he does describe myoclonic activity involving the stroke side and had been on baclofen since that time. It is helped out spasm related pain but hasn't done much for myoclonic spells the 10 to be triggered by movement and can be suppressed. One month ago he had an episode of myoclonic activity on the left side that he could not suppressed was followed by syncope. At that time he was started on Keppra but shortly thereafter he was noted to have significant bradycardia arrhythmias for which she underwent pacemaker placement [address] Saini. He attributed his syncope due to cardiac issues so of his own accord he discontinued Keppra. He reports while sitting in his recliner several hours before his admission to the emergency room he developed left sided myoclonic activity that he could not suppress and then again suffered syncope within a minute or 2 of the onset of this left-sided myoclonus. This was unwitnessed. He reported feeling fatigued but did not recall being overly confused following this syncope and there was no reported loss of bowel or bladder control nor did he report any soreness in his mouth or tongue. His pacemaker was interrogated in the emergency room and loop recording revealed one reported 11 beat run of atrial tachycardia around 140-150 range thought by her fisheries officer to likely be a short run of atrial flutter there were no significant bradycardia arrhythmias or tachycardia arrhythmias. There is a family history in 2 first-degree relatives of AVRD. The patient has had no reported evidence for this however. He's had multiple echoes including a NICKO that were unremarkable [facility] per his report. He essentially admitted for observation of this recent syncopal episode and Keppra has been resumed at 500 mg twice a day. By mouth. Source: patient Date Seen 01/25/18 Time Seen by a Provider: 08:00 Attending Physician Vik Jo MD PCP Eusebia Deal MD Referring Physician Date of Admission Jan 24, 2018 at 17:07 Home Medications & Allergies Home Medications Reviewed patient Home Medication Reconciliation performed by pharmacy medication reconciliations solar fabrication technician and/or nursing. Patients Allergies have been reviewed. Allergies Allergies Coded Allergies No Known Drug Allergies (Unverified12/28/09) Past Dnancbj-Lanelv-Xafdnn Hx Past Med/Social Hx: Reviewed and Corrections made Patient Social History Alcohol Use: Denies Use Recreational Drug Use: No Smoking Status: Never a Smoker Physical Abuse Screen: No Sexual Abuse: No Recent Foreign Travel: No Contact w/other who traveled: No Recent Hopitalizations: No Recent Infectious Disease Expo: No Immunizations Up To Date Tetanus Booster (TDap): Unknown Pediatric: Yes Seasonal Allergies Seasonal Allergies: No Past Medical History Surgeries: Abdominal, Pacemaker Cardiac: Deep Vein Thrombosis (After leg fracture) Neurological: Seizure Disorder, Stroke Reproductive: No Gastrointestinal: Gastroesophageal Reflux History of Blood Disorders: No Family History Reviewed and Corrections made Patient reports no known family medical history. Heart Disease (ARVD) Review of Systems Constitutional: see HPI; No chills, No diaphoresis, No dizziness, No fever, No malaise; weakness; No weight gain, No weight loss, No other Cardiovascular: No chest pain, No edema, No Hx of Intervention, No palpitations ; syncope; No vascular heart diseas, No other Musculoskeletal: see HPI Physical Exam Physical Exam Vital Signs Vital Signs - First Documented 01/24/18 01/24/18 13:13 17:30 Temp 98.0 Pulse 88 Resp 17 B/P (MAP) 129/86 (100) Pulse Ox 98 O2 Delivery Room Air Capillary Refill : Less Than 3 Seconds Height, Weight, BMI Height: 6'2.00" Weight: 165lbs. 0.0oz. 74.053483by; 21.2 BMI Method:Stated General Appearance: No Apparent Distress, Thin HEENT: PERRL/EOMI, Pharynx Normal Neck: Full Range of Motion, Normal Inspection, Non Tender, Supple, Carotid Bruit Respiratory: Chest Non Tender, Lungs Clear, Normal Breath Sounds, No Accessory Muscle Use, No Respiratory Distress Cardiovascular: Regular Rate, Rhythm, No Edema, No Gallop, No JVD, No Murmur, Normal Peripheral Pulses Gastrointestinal: Normal Bowel Sounds, No Organomegaly, No Pulsatile Mass, Non Tender, Soft Neurologic/Psychiatric: Alert, Oriented x3, Motor Weakness (Left hemiparesis with muscle atrophy. Mild clonus noted with movement of the left upper extremity that the patient can suppress quickly with his right hand.) Skin: Warm/Dry, Pallor Results Results/Procedures Labs Laboratory Tests 01/24/18 14:45 01/25/18 05:39 Patient resulted labs reviewed. Short Stay Diagnosis Discharge Diagnosis-Short Stay Admission Diagnosis 1. Syncope possibly due to focal seizure with secondary generalization versus mild clonus induced hypotensive event without evidence for cardiac arrhythmic etiology. 2. Reported 11 beat run of possible atrial flutter unlikely to have been the cause of syncope. 3. Right-sided CVA with left-sided hemiparesis old Final Discharge Diagnosis As for admission diagnosis Conclusion Plan The patient was admitted to the floor on telemetry and overnight will be exhibited intermittent mild clonus that he could suppress there was no loss of consciousness. Unfortunately both of his episodes of syncope have not been witnessed per his report. While he clearly has myoclonus unrelated to seizure activity considering recent right-sided CVA and certainly concerned about focal seizure disorder with secondary generalization. Patient was told to continue Keppra 500 mg twice a day and he believes that he is in the process of neurology referral with likely EEG to follow. He is unable to drive secondary to hemiparesis from his left strokes that this is not an issue. We did discuss that he is having mild clonus that he cannot control he needs to lay down and if possible notify someone. Other possibility involves myoclonus triggering a hypotensive event. He was discharged stable vital signs voicing no complaints and advised to call Dr. Deal's office Saturday morning for follow-up. He reports that he has Keppra at home which she will continue at 500 mg twice a day. There are no other medication changes. The patient did have a chest x- ray that was unremarkable emergency room but did not undergo any form of neuro imaging. As he was back to baseline level of neurologic functioning upon arrival to the emergency room and remained that way during his hospital stay with no headache or other red flag symptoms neuro imaging deferred at this time but will likely need consideration for MRI of the brain as an outpatient. Will defer to his PCP or neurologist. Clinical Quality Measures DVT/VTE Risk/Contraindication: Risk Factor Score Per Nursin RFS Level Per Nursing on Admit: 4+=Very High Copy Copies To 1: EUSEBIA DEAL MD, MARK D MD Jan 25, 2018 09:43
[2018-01-25 11:51] VITALS: BP 124/72
[2018-01-25] MEDS ORDERED: APIXABAN 5 MG (ELIQUIS) TABLET PO SCH (13:00)
--- NOTE | 2018-01-25 14:08 | Cardiology Progress Note ---
Cardiology SOAP Progress Note Subjective: No further cardiac symptoms. Objective: I&O/Vital Signs 01/25/18 01/25/18 01/25/18 01/25/18 04:00 07:00 08:07 11:51 Temp 99.5 98.6 98.9 Pulse 67 75 73 80 Resp 20 20 20 B/P (MAP) 128/82 (97) 126/77 (93) 124/72 (89) Pulse Ox 95 95 96 O2 Delivery Room Air Room Air Room Air 01/25/18 00:00 Intake Total 1420 ml Balance 1420 ml Weight (Pounds): 165 Weight (Ounces): 0.0 Weight (Calculated Kilograms): 74.369558 Constitutional: appears stated age, AAO x 3; No apparent distress; well- developed, well-nourished Respiratory: chest is bilaterally symmetric, lungs clear to auscultation Cardiovascular: regular rate-rhythm, S1 and S2 Gastrointestional: No tender, No soft, No round, No distended, No pulsatile mass, No organomegaly, No guarding, No rebound, No tenderness, No hernia, No mass, No audible bowel sounds, No abnormal bowel sounds, No abdominal bruits, No spleenomegaly, No other Extremities: No normal range of motion, No non-tender, No normal inspection, No pedal edema, No calf tenderness, No normal capillary refill, No pelvis stable , No calf tenderness, No inflammation, No pedal edema, No slow capillary refill , No swelling, No other, No abrasion, No clubbing, No cyanosis, No ecchymosis, No laceration, No no lower extremity edema bilateral, No significant edema, No tenderness, No wound Neurologic/Psychiatric: no motor/sensory deficits, alert, normal mood/affect, oriented x 3, power is 5/5 both on sides Skin: No normal color, No warm/dry, No cyanosis, No cool, No diaphoresis, No damp, No ecchymosis, No jaundice, No mottled, No pallor, No rash, No tattoos/ piercings, No ulcerations, No rash on exposed areas, No ulcerations on exposed areas, No other Results/Procedures: Labs Laboratory Tests 01/24/18 14:30: Urine Color YELLOW, Urine Clarity CLEAR, Urine pH 6.5, Urine Specific [place] 1.020, Urine Protein 2+H, Urine Glucose (UA) NEGATIVE, Urine Ketones 1+H, Urine Nitrite NEGATIVE, Urine Bilirubin NEGATIVE, Urine Urobilinogen NORMAL, Urine Leukocyte Esterase NEGATIVE, Urine RBC (Auto) NEGATIVE, Urine RBC NONE, Urine WBC NONE, Urine Squamous Epithelial Cells NONE, Urine Crystals NONE, Urine Bacteria NEGATIVE, Urine Casts NONE, Urine Mucus NEGATIVE, Urine Other MOD SPERMH, Urine Culture Indicated NO 01/24/18 14:45: White Blood Count 16.3H, Red Blood Count 5.67, Hemoglobin 18.8H, Hematocrit 51, Mean Corpuscular Volume 89, Mean Corpuscular Hemoglobin 33, Mean Corpuscular Hemoglobin Concent 37H, Red Cell Distribution Width 12.3, Platelet Count 182, Mean Platelet Volume 10.3, Neutrophils (%) (Auto) 84H, Lymphocytes (%) (Auto) 11L, Monocytes (%) (Auto) 4, Eosinophils (%) (Auto) 1, Basophils (%) (Auto) 0, Neutrophils # (Auto) 13.7H, Lymphocytes # (Auto) 1.8, Monocytes # (Auto) 0.7, Eosinophils # (Auto) 0.1, Basophils # (Auto) 0.0, Neutrophils % (Manual) 87, Lymphocytes % (Manual) 13, Monocytes % (Manual) 0, Eosinophils % (Manual) 0, Basophils % (Manual) 0, Band Neutrophils 0, Blood Morphology Comment NORMAL, Sodium Level 138, Potassium Level 4.3, Chloride Level 102, Carbon Dioxide Level 24, Anion Gap 12, Blood Urea Nitrogen 17, Creatinine 0.96, Estimat Glomerular Filtration Rate > 60, BUN/Creatinine Ratio 18, Glucose Level 93, Calcium Level 9.8, Corrected Calcium , Magnesium Level 2.4, Total Bilirubin 0.8, Aspartate Amino Transf (AST/SGOT) 28, Alanine Aminotransferase (ALT/SGPT) 65H, Alkaline Phosphatase 72, Total Protein 8.4H, Albumin 4.6H 01/25/18 05:39: White Blood Count 9.4, Red Blood Count 5.09, Hemoglobin 16.1, Hematocrit 46, Mean Corpuscular Volume 91, Mean Corpuscular Hemoglobin 32, Mean Corpuscular Hemoglobin Concent 35, Red Cell Distribution Width 12.4, Platelet Count 257, Mean Platelet Volume 9.5, Neutrophils (%) (Auto) 71, Lymphocytes (%) (Auto) 18, Monocytes (%) (Auto) 9, Eosinophils (%) (Auto) 1, Basophils (%) (Auto) 0, Neutrophils # (Auto) 6.7, Lymphocytes # (Auto) 1.7, Monocytes # (Auto) 0.9, Eosinophils # (Auto) 0.1, Basophils # (Auto) 0.0, Sodium Level 139, Potassium Level 4.0, Chloride Level 107, Carbon Dioxide Level 21, Anion Gap 11, Blood Urea Nitrogen 15, Creatinine 0.96, Estimat Glomerular Filtration Rate > 60, BUN/ Creatinine Ratio 16, Glucose Level 105, Calcium Level 9.1, Corrected Calcium 9.2 , Total Bilirubin 1.1H, Aspartate Amino Transf (AST/SGOT) 19, Alanine Aminotransferase (ALT/SGPT) 45, Alkaline Phosphatase 62, Total Protein 7.0, Albumin 3.9 A/P: Assessment/Dx: Possible Syncope, History of Stroke, Recent PPM for severe sinus node dysfunction, Family history of ARVD and SCD in the family, Atrial Flutter on PPM Interrogation. Plan: Unclear etiology for Syncope - Neurological vs Cardiac. Device Interrogation did not reveal any Asystole, VT, VF, Bradycardia. 11 second episode of narrow complex tachycardia at 400 ms cycle length, likely atrial flutter. I doubt that his cause of syncope is cardiac considering that we have telemetry via the device. Can be discharged to follow-up with neurology and cardiology. Atrial Flutter: only on aspirin. If CVA last year was because of atrial flutter/ AF then his CHADSVASC score will be 2 and he will be candidate for oral anticoagulation therapy with NOACs. We'll start Eliquis therapy 5 mg twice a day. H/o ARVD in family: EKG does not reveal ARVD in patient, however EKG has poor sensitivity for ARVD. However, that patient told me that he has had numerous echos and NICKO at which were all normal and he took part in numerous high endurance sports including swimming without any issues. Preliminary echocardiogram in our facility shows normal RV function. Thank you for your consultation. Please call me if you have any questions. Odalys Wing MD, FACP, FACC, FSCAI, FHRS, CCDS Interventional Cardiology Cardiac Electrophysiology Vascular Medicine and Endovascular Interventions Joann WING MD Jan 25, 2018 2:08 pm
[2018-01-25] MEDS ORDERED: APIX5TAB PO ×2 (14:26→15:06)
== END 2018-01-25 15:30 | disposition home or self-care (01) ==
LOC: EDUNIT# 12:24 → ER 12:25 → 4TH 17:07
PROVIDERS: ADMIT Internal Medicine; ATTEND Internal Medicine
DX: R55 Syncope and collapse (principal); I48.92 Unspecified atrial flutter; I69.354 Hemiplegia and hemiparesis following cerebral infarction affecting left non-dominant side; G40.909 Epilepsy, unspecified, not intractable, without status epilepticus; K21.9 Gastro-esophageal reflux disease without esophagitis; D72.829 Elevated white blood cell count, unspecified; Z82.49 Family history of ischemic heart disease and other diseases of the circulatory system; Z79.82 Long term (current) use of aspirin; Z86.718 Personal history of other venous thrombosis and embolism; Z95.0 Presence of cardiac pacemaker
CPT/HCPCS: 36415; 71046; 80053; 81000; 83735; 85007; 85025; 85027; 93005; 93041; 93306; G0378

== ENCOUNTER 2018-02-13 05:38 | Outpatient (CLI) | payer BC ==
[~2018-02-13] VITALS: Ht 188 cm; Wt 74.8 kg
[~2018-02-13 05:38] MED LIST changes: +APIX5TAB PO; -BACL20TA; +BACL20TA PO; -GABA-488; +GABA-488 PO; -PANT40TA3; +PANT40TA3 PO; -TRAZ-189; +TRAZ-189 PO
[2018-02-13] MEDS ORDERED: UBID300C PO (10:17)
[2018-02-13] MEDS ORDERED: FLUO40CA12 PO (10:17)
[2018-02-13] MEDS ORDERED: ATOR40TA PO (10:17)
[2018-02-13] MEDS ORDERED: OMEG-35 PO (10:17)
[2018-02-13] MEDS ORDERED: MELA5CAP PO (10:17)
== END 2018-02-13 13:11 | disposition home or self-care (01) ==
LOC: PREOP 05:38
PROVIDERS: ATTEND Internal Medicine Interventional Cardiology
DX: Z01.818 Encounter for other preprocedural examination (principal)

== ENCOUNTER 2018-02-24 06:08 | Day surgery (SDC) | payer BC ==
[2018-02-24] VITALS (21 sets, daily range): BP systolic 104–142; BP diastolic 61–94
[~2018-02-24] VITALS: Ht 188 cm; Wt 74.8 kg
[~2018-02-24 06:08] MED LIST changes: +ATOR40TA PO; +FLUO40CA12 PO; +MELA5CAP PO; +OMEG-35 PO; +UBID300C PO
[2018-02-24] MEDS ORDERED: NS IV 1000 ML 1,000 ML IV SCH (06:46)
[2018-02-24] MEDS ORDERED: NS IV 1000 ML 1,000 ML ONE (06:49)
[2018-02-24] MEDS ORDERED: HEParin (CATH LAB) 2,000 ML IV ONE (06:49)
[2018-02-24] MEDS ORDERED: LIDOCAINE 1% INJ 20 ML 20 ML VIAL ONE (06:49)
[2018-02-24] MEDS ORDERED: ISOPROTERENOL 0.2 MG/100 ML D5W IV ONE (07:00)
[2018-02-24] MEDS ORDERED: proPOfol 200 MG/20 ML (DIPRIVAN) VIAL IV ONE (07:05)
[2018-02-24] MEDS ORDERED: MIDAZOLAM 2 MG/2 ML (VERSED) VIAL ONE (07:05)
[2018-02-24] MEDS ORDERED: fentaNYL INJECTION 100 MCG/2 ML AMP ONE (07:06)
[2018-02-24] MEDS ORDERED: LIDOCAINE PF 1% 2 ML AMP ONE (07:06)
[2018-02-24] MEDS ORDERED: FAMOTIDINE 20MG/2ML IV (PEPCID) ONE (07:35)
[2018-02-24 07:36] LABS: HEMOGLOBIN 16.8 G/DL (13.3-17.7); MEAN PLATELET VOLUME 10.1 FL (7.4-10.4); RED BLOOD COUNT 5.2 10^6/uL (4.35-5.85); RED CELL DISTRIBUTION WIDTH 12.1 % (10.0-14.5)
[2018-02-24 07:51] LABS: INR 1.4 (0.8-1.4); PROTHROMBIN TIME PATIENT 16.9 SEC (12.2-14.7)
[2018-02-24] MEDS ORDERED: SEVOFLURANE (ULTANE) 15 ML INHAL SOLN ONE ×3 (07:51→11:58)
[2018-02-24 07:57] LABS: ALANINE AMINOTRANSFERASE 56 U/L (0-55); ALBUMIN 4.2 GM/DL (3.2-4.5); ALKALINE PHOSPHATASE 57 U/L (40-136); BILIRUBIN,TOTAL 1.1 MG/DL (0.1-1.0); BUN/CREATININE RATIO 17; CALCIUM 9.2 MG/DL (8.5-10.1); CARBON DIOXIDE 25 MMOL/L (21-32); CHLORIDE 104 MMOL/L (98-107); CREATININE SERUM 0.87 MG/DL (0.60-1.30); GFR ESTIMATED > 60; GLUCOSE 103 MG/DL (70-105); POTASSIUM 3.5 MMOL/L (3.6-5.0); SODIUM 138 MMOL/L (135-145); TOTAL PROTEIN 7.2 GM/DL (6.4-8.2)
[2018-02-24] MEDS ORDERED: FAMOTIDINE 20MG/2ML IV (PEPCID) IVP ONE (08:00)
--- NOTE | 2018-02-24 10:49 | Cardiology Post Procedure Note ---
Post-Procedure Note Physician (s)/Fittings Tightener (s) Physician Joann AMAYA MD Pre-Procedure Diagnosis Pre-Procedure Diagnosis: Typical atrial flutter Post-Procedure Note Procedure Start Date: Feb 24, 2018 Procedure Start Time: 08:30 Name of Procedure: EP study with induction, typical atrial flutter ablation. Findings/Procedure Note Typical atrial flutter ablation Estimated blood loss (mL): 10 Contrast Amount: 0 Post-Procedure Diagnosis Post-operative diagnosis: Successful typical atrial flutter ablation. Joann AMAYA MD Feb 24, 2018 10:48 am
[2018-02-24] MEDS ORDERED: PATIENT MAY USE OWN MEDS, ALL PO SCH (11:00)
[2018-02-24] MEDS ORDERED: ONDANSETRON 4 MG/2 ML (SDV) Z0FRAN IVP PRN (11:30)
[2018-02-24] MEDS ORDERED: HYDROmorphone 2 MG/ML VIAL (DILAUDID) IV ONE (11:30)
[2018-02-24] MEDS: NS IV 1000 ML 1,000 ML IV SCH (13:25)
[2018-02-24] MEDS ORDERED: ACETAMINOPHEN 500 MG TAB (TYLENOL) PO PRN (18:30)
[2018-02-24] MEDS ORDERED: NON-FORMULARY MEDICATION 1 EA EA (Levetiracetam (Keppra) 500 MG) PO SCH (21:00)
[2018-02-24] MEDS ORDERED: NON-FORMULARY MEDICATION 1 EA EA (Baclofen 20 MG) PO SCH (21:00)
[2018-02-24] MEDS: APIXABAN 5 MG (ELIQUIS) TABLET PO SCH (21:19)
[2018-02-24] MEDS: BACLOFEN 10 MG (LIORESAL) TAB PO SCH (21:19)
[2018-02-24] MEDS: LEVETIRACETAM 500 MG (KEPPRA) TAB PO SCH (21:20)
[2018-02-25] VITALS (11 sets, daily range): BP systolic 109–132; BP diastolic 71–87
[2018-02-25 03:42] LABS: HEMOGLOBIN 15.5 G/DL (13.3-17.7); MEAN PLATELET VOLUME 10.1 FL (7.4-10.4); RED BLOOD COUNT 4.83 10^6/uL (4.35-5.85); WHITE BLOOD COUNT 8.8 10^3/uL (4.3-11.0)
[2018-02-25 03:59] LABS: BUN/CREATININE RATIO 18; CALCIUM 8.9 MG/DL (8.5-10.1); CARBON DIOXIDE 23 MMOL/L (21-32); CHLORIDE 107 MMOL/L (98-107); CREATININE SERUM 0.79 MG/DL (0.60-1.30); GFR ESTIMATED > 60; GLUCOSE 95 MG/DL (70-105); POTASSIUM 3.6 MMOL/L (3.6-5.0); SODIUM 139 MMOL/L (135-145)
[2018-02-25] MEDS: NS IV 1000 ML 1,000 ML IV SCH ×2 (07:20→07:48)
--- NOTE | 2018-02-25 08:11 | Anesthesia-General Post-Op ---
MAC Patient Condition Mental Status/LOC: Same as Preop Cardiovascular: Satisfactory Nausea/Vomiting: Absent Respiratory: Satisfactory Pain: Controlled Complications: Absent Post Op Complications Complications None Follow Up Care/Instructions Patient Instructions None needed. Anesthesiology Discharge Order Discharge Order Patient is doing well, no complaints, stable vital signs, no apparent adverse anesthesia problems. No complications reported per nursing. JN BUITRAGO CRNA Feb 25, 2018 08:11
[2018-02-25] MEDS: LEVETIRACETAM 500 MG (KEPPRA) TAB PO SCH (08:32)
[2018-02-25] MEDS: BACLOFEN 10 MG (LIORESAL) TAB PO SCH (08:33)
[2018-02-25] MEDS: APIXABAN 5 MG (ELIQUIS) TABLET PO SCH (08:33)
[2018-02-25] MEDS ORDERED: GABAPENTIN 300 MG (NEURONTIN) CAP PO SCH (09:00)
[2018-02-25] MEDS ORDERED: DILT60TA30 PO (09:31)
--- NOTE | 2018-02-25 10:01 | Cardiology Discharge Summary ---
Diagnosis/Chief Complaint Date of Admission 02/24/2018 Date of Discharge 02/25/2018 Admission Diagnosis Typical atrial flutter Final/Discharge Diagnosis Typical atrial flutter ablation Chief Complaint/HPI Chief Complaint/HPI This is a 42-year-old gentleman with history of stroke. Severe symptomatic sinus node dysfunction, asystole requiring dual-chamber permanent pacemaker implantation. Pacemaker interrogation demonstrated likely typical atrial flutter. EP study and ablation was recommended. Discharge Summary Procedures Comprehensive EP study was performed with inducible atrial flutter demonstrating CTI dependence. 3-D mapping performed and typical atrial flutter ablation performed. Short runs of atrial fibrillation also noted. Discharge Physical Examination Normal cardiovascular and respiratory examination. Hospital Course Unremarkable. Pending Labs Discussion & Recommendations Discussion Discussed at length with the and the patient. Successful atrial flutter ablation with success rate of 90 percent. However brief runs of atrial fibrillation was noted. Therefore I cautioned the patient that he could develop atrial fibrillation in the future. That could require antiarrhythmic therapy. I also wanted him to continue Cardizem and Eliquis therapy. He complains of fatigue which could be due to his seizure medications. Discharge took over 30 minutes to complete. Follow up appt.: Dr. Wing in a month Dicharge Diet: Regular Diet Activity as Tolerated: Yes Home Medications Reviewed patient Home Medication Reconciliation performed by pharmacy medication reconciliations soldering technician and/or nursing. Patients Allergies have been reviewed. Discharge Home Medications: Reviewed and agree with Discharge Medication list on patient's Discharge Instruction sheet Condition at discharge Stable. Instructions to patient/family Discussed at length with the and patient. Joann WING MD Feb 25, 2018 10:01
--- NOTE | 2018-02-27 03:25 | OPERATIVE REPORT ---
DATE OF SERVICE: 02/24/2018 EP STUDY AND TYPICAL ATRIAL FLUTTER ABLATION CARDIAC PAYMENT SPECIALIST: Odalys Wing MD INDICATION: Typical atrial flutter -- CTI dependent. PREOPERATIVE DIAGNOSIS: Typical atrial flutter -- CTI dependent. POSTOPERATIVE DIAGNOSES: Typical atrial flutter, status post cavotricuspid isthmus ablation. HISTORY: This is a 42-year-old gentleman with a history of severe sinus node dysfunction, for which a dual chamber permanent pacemaker was implanted. The patient had implantable loop recorder after a stroke. An event of asystole was then observed on the implantable loop recorder resulting in a dual chamber permanent pacemaker implantation. The patient also has history of seizures requiring antiepileptic medication. The patient's pacemaker interrogation revealed regular narrow complex tachycardia at cycle length of 400 milliseconds, very likely typical atrial flutter. This was associated with possible near syncope. The patient was started on oral anticoagulation and rate controlling medication. The patient is planned for comprehensive EP study and CTI ablation. PROCEDURE PERFORMED: 1. Comprehensive EP study with induction. 2. Fluoroscopy. 3. CS pacing. 4. Ablation of typical atrial flutter. 5. Comprehensive 3D mapping with the carto system. COMPLICATION: None. ESTIMATED BLOOD LOSS: 10 mL. CONTRAST USED: None. FLUOROSCOPY TIME: 13 minutes. FLUOROSCOPY DOSE: SPECIMENS: None. ANESTHESIA: Done by our anesthesia colleagues. ANTICOAGULATION: On oral anticoagulation therapy. PROCEDURE IN DETAIL: After informed consent was taken, the patient was brought to the EP lab. Anesthesia was provided by our anesthesia colleagues. The patient was draped and prepped in the usual sterile fashion. The patient presented to the EP lab in sinus rhythm. Access was gained in the right femoral vein with a 6-[place] and an 8-[place] sheath. Left access in left femoral vein was gained with 5-[place] and 6-[place] sheath respectively. High right atrial catheter was an ablation catheter, right ventricular catheter was placed, His catheter and the CS catheter were also placed. A comprehensive EP study was done including a CS pacing. Typical atrial flutter was induced without Isuprel with atrial pacing. Cycle length of the tachycardia was 240 milliseconds. The tachycardia was entrained from the cavotricuspid isthmus. Post-pacing interval was less than 20 milliseconds suggesting that this atrial flutter was CTI dependent. A 3D electroanatomic mapping was done with the carto system. Ablation was performed in the cavotricuspid isthmus. Atrial flutter converted during ablation of the cavotricuspid isthmus. CS pacing and pacing from the ablation catheter at different positions on the lateral side of the ablation line were used to verify bidirectional block. We then waited for 30 minutes and rechecked and confirmed bidirectional block. The patient also had short runs of atrial fibrillation, which spontaneously converted to sinus rhythm. The patient tolerated the procedure well and did not have any complication. The patient left the lab in sinus rhythm. Total ablation time was 9 minutes and 46 seconds. Isuprel was given post-procedure, however, we could not induce atrial flutter. MEASUREMENTS/EP STUDY: AV Wenckebach was 360 milliseconds, retrograde Wenckebach was 490 milliseconds. AV node ERP was 600, less than 200 milliseconds since induction of AFib. Ventricular ERP was 600/220 milliseconds. Atrial flutter was induced at 200/50 milliseconds with cycle length of 240 milliseconds. SNRT was 1550 milliseconds. Corrected SNRT was 791 milliseconds. PLAN: The patient will be observed overnight and will be discharged home tomorrow with precise followup instructions. Job ID: [id number] DocumentID: [id number] Dictated Date: 02/26/2018 17:32:00 Logistics Coordinator Date: 02/27/2018 03:24:51 Dictated By: MD FRANCHESKA NANCE
== END 2018-02-25 10:30 | disposition home or self-care (01) ==
LOC: CATH 06:08 → ICU 12:24 → CATH 02-25 10:30
PROVIDERS: ATTEND Internal Medicine Interventional Cardiology
DX: I48.3 Typical atrial flutter (principal); I49.5 Sick sinus syndrome; Z82.41 Family history of sudden cardiac death; Z86.73 Personal history of transient ischemic attack (TIA), and cerebral infarction without residual deficits; Z95.0 Presence of cardiac pacemaker; E78.5 Hyperlipidemia, unspecified; Z86.718 Personal history of other venous thrombosis and embolism; G40.909 Epilepsy, unspecified, not intractable, without status epilepticus; K21.9 Gastro-esophageal reflux disease without esophagitis; Z79.01 Long term (current) use of anticoagulants; Z79.899 Other long term (current) drug therapy
CPT/HCPCS: 36415; 80048; 80053; 85027; 85610; 85730; 87081; 93005; 93613; 93623; 93653

== ENCOUNTER → 2018-07-23 | Outpatient (CLI) | payer BC ==
[~2018-07-23] MED LIST changes: +DILT60TA30 PO
== END ==
LOC: CARD 11:03
PROVIDERS: ATTEND Internal Medicine Interventional Cardiology
DX: I49.5 Sick sinus syndrome (principal); I47.2 Ventricular tachycardia; I48.92 Unspecified atrial flutter; I63.9 Cerebral infarction, unspecified
CPT/HCPCS: 93306

== ENCOUNTER 2018-08-07 07:16 | Day surgery (SDC) | payer BC ==
[~2018-08-07] VITALS: Ht 188 cm; Wt 74.8 kg
[2018-08-07] VITALS (11 sets, daily range): BP systolic 106–128; BP diastolic 61–84
[~2018-08-07 07:16] MED LIST changes: +HEParin (CATH LAB) 2,000 ML IV ONE; +LIDOCAINE 1% INJ 20 ML 20 ML VIAL ONE; +NS IV 1000 ML 1,000 ML ONE
[2018-08-07] MEDS ORDERED: NS IV 1000 ML 1,000 ML IV SCH ×2 (07:30→09:43)
[2018-08-07 07:52] LABS: HEMOGLOBIN 16.1 G/DL (13.3-17.7); MEAN PLATELET VOLUME 9.8 FL (7.4-10.4); RED CELL DISTRIBUTION WIDTH 12.2 % (10.0-14.5); WHITE BLOOD COUNT 5.8 10^3/uL (4.3-11.0)
[2018-08-07] MEDS ORDERED: METO-387 PO (07:58)
[2018-08-07 08:07] LABS: INR 1.3 (0.8-1.4); PROTHROMBIN TIME PATIENT 16.4 SEC (12.2-14.7)
[2018-08-07 08:12] LABS: ALANINE AMINOTRANSFERASE 92 U/L (0-55); ALKALINE PHOSPHATASE 57 U/L (40-136); BILIRUBIN,TOTAL 0.9 MG/DL (0.1-1.0); BUN/CREATININE RATIO 19; CALCIUM 9.2 MG/DL (8.5-10.1); CARBON DIOXIDE 25 MMOL/L (21-32); CHLORIDE 105 MMOL/L (98-107); CREATININE SERUM 0.86 MG/DL (0.60-1.30); GFR ESTIMATED > 60; GLUCOSE 95 MG/DL (70-105); POTASSIUM 3.7 MMOL/L (3.6-5.0); SODIUM 142 MMOL/L (135-145)
[2018-08-07] MEDS ORDERED: fentaNYL INJECTION 100 MCG/2 ML AMP ONE (08:17)
[2018-08-07] MEDS ORDERED: MIDAZOLAM 5 MG/5 ML (VERSED) VIAL ONE (08:17)
[2018-08-07] MEDS ORDERED: PATIENT MAY USE OWN MEDS, ALL PO SCH (09:45)
--- NOTE | 2018-08-07 09:45 | Coronary Angiography Report ---
Coronary Angiography Report DATE OF PROCEDURE: 08/07/18 INDICATION: New onset cardiomyopathy. PREOPERATIVE DIAGNOSIS: New onset cardiomyopathy. POSTOPERATIVE DIAGNOSIS: Patent epicardial coronary arteries. HISTORY: A 42-year-old gentleman who has history of possible seizure disorder. However he had possible CVA, cryptogenic stroke requiring implantable loop recorder which showed long pauses. Dual-chamber permanent pacemaker was done. He was found to have typical atrial flutter which required typical atrial flutter ablation which was successful. He continued to undergo treatment for epilepsy with side effects due to anti-epileptic medications. He also complained of shortness of breath for which echocardiogram was done which showed moderate LV systolic dysfunction. Therefore, the patient was scheduled for coronary angiography. PROCEDURES PERFORMED: 1.Coronary angiography. 2.Left heart catheterization. COMPLICATIONS: None. SPECIMENS: None. ESTIMATED BLOOD LOSS: 10 mL ANESTHESIA: Conscious sedation ANTICOAGULATION: None. CONTRAST: 80 mL. FLUOROSCOPY: 3.4 minutes. FLOUROSCOPY DOSE: 327 mgy. PROCEDURE DETAILS: The patient is a 42 male and was brought to the cathead operator after informed consent was taken. All the risks and complications were explained in detail; this included the risk of bleeding, vascular damage, stroke , SC and even . The patient was draped and prepped in the usual sterile fashion. Access was gained in the left femoral artery with a 6 [place] sheath. Coronary angiography and left heart catheterization was performed with a JR4, JL4 and pigtail catheter. FINDINGS: 1.Left main: Patent. 2.LAD: Patent. 3.Left circumflex artery: Patent. 4.RCA: Patent. 5.Left heart catheterization: LV pressure 97/0 mmHg. LVEDP 7 mmHg. Aortic pressure 97/52 mmHg. Global hypokinesis with mild LV systolic dysfunction. EF 45 percent. Suspicion for apical akinesis. No gradient across the aortic valve. CONCLUSIONS: 1. Patent epicardial coronary arteries. 2. Nonischemic cardiomyopathy. I will arrange an appointment with cardiomyopathy specialist in to rule out infiltrative cardiac disease. 3. Continue aggressive medical therapy. Odalys Wing MD, FACP, FACC, [facility] Interventional Cardiology Joann WING MD August 07, 2018 09:45
--- NOTE | 2018-08-07 09:45 | Cardiac Procedure Note-CS/ASA ---
Pre-Procedure Note Pre-Op Procedure Note H&P Reviewed The H&P was reviewed, patient examined and no changes noted. Date H&P Reviewed: August 07, 2018 Time H&P Reviewed: 08:00 Conscious Sedation Pre-Proced Time 08:00 ASA Score 3 For ASA 3 and 4: Consider anesthesia and medical clearance. Also, for patients with a history of failed moderate sedation consider anesthesia. Airway Lungs Heart ASA score ASA 1: a normal healthy patient ASA 2: a patient with a mild systemic disease (mid diabetes, controlled hypertension, obesity ASA 3: a patient with a severe systemic disease that limits activity (angina , COPD, prior Myocardial infarction) ASA 4: a patient with an incapacitating disease that is a constant threat to life (CHF, renal failure) ASA 5: a moribund patient not expected to survive 24 hrs. (ruptured aneurysm) ASA 6: a declared brain- patient whose organs are being harvested. For emergent operations, add the letter E after the classification Mallampati Classification Grade 1 Sedation Plan Analgesia, Amnesia, Plan communicated to team members, Discussed options with patient/fam, Discussed risks with patient/fam The patient is an appropriate candidate to undergo the planned procedure, sedation, and anesthesia. The patient immediately re-assessed prior to indication. Joann AMAYA MD August 07, 2018 09:45
--- NOTE | 2018-08-07 10:01 | Discharge Inst-Post CATH ---
Discharge Inst-CATH/EP Post Cardiac Cath/EP D/C Inst Follow Up/Plan Dr. Wing in 10 weeks. <b>CARDIAC CATH/EP PROCEDURE DISCHARGE INSTRUCTIONS</b> Cardiac Rehab Please be expecting a follow up call from Cardiac Rehab within in one week. ACTIVITY * Go Home directly and rest. * Limit activity of the leg (or wrist if it was used) for 7 days including aerobics, swimming, jogging, bicycling, etc. * Restrict stair-climbing for 7 days if possible, if not, climb up with your non -cath leg, then bring together on the same step. * Avoid lifting, pushing, pulling or excessive movement of the affected extremity for 7 days. * Customary sexual activity may be resumed after 2 days-use caution not to use a position that strains or causes pain to the affected extremity. * No driving for 24 hours. * NO SMOKING. * Avoid straining for bowel movements for 7 days. * Gentle walking on level ground is allowed. * Returning to work will depend on the type of procedure and the results. Your doctor will discuss this with you. CALL YOUR DOCTOR FOR ANY OF THE FOLLOWING: *If bleeding from the puncture site occurs- Apply gentle pressure to site with clean cloth and call your doctor or EMS. * If a knot or lump forms under the skin, increases in size, or causes pain. * If bruising appears to be worsening or moving further down your leg instead of disappearing. * Temperature above 101 F. CARE OF YOUR GROIN INCISION; * Bruising or purple discoloration of the skin near the puncture site is common. * You may shower only, no bathtub bathing for 5 days. Be careful to avoid slipping as your leg may feel stiff. * If a closure device was used on your femoral artery, please see the attached guide regarding care of the device and your leg. * Leave dressing on FOR 24 hours. CARE OF YOUR WRIST INCISION; * Bruising or purple discoloration of the skin near the puncture site is common. * You may shower. * DO NOT submerge wrist. * Leave dressing on FOR 24 hours. Joann WING MD August 07, 2018 10:01
--- NOTE | 2018-08-07 10:09 | Cardiology Discharge Summary ---
Diagnosis/Chief Complaint Date of Admission 08/07/2018 Date of Discharge 08/07/2018 Admission Diagnosis New onset cardiomyopathy Final/Discharge Diagnosis Patent epicardial coronary arteries, nonischemic cardiomyopathy Chief Complaint/HPI Chief Complaint/HPI A 42-year-old gentleman who has history of possible seizure disorder. However he had possible CVA, cryptogenic stroke requiring implantable loop recorder which showed long pauses. Dual-chamber permanent pacemaker was done. He was found to have typical atrial flutter which required typical atrial flutter ablation which was successful. He continued to undergo treatment for epilepsy with side effects due to anti-epileptic medications. He also complained of shortness of breath for which echocardiogram was done which showed moderate LV systolic dysfunction. Therefore, the patient was scheduled for coronary angiography. Discharge Summary Procedures Coronary angiography revealed patent epicardial cornea arteries. Mild LV systolic dysfunction with likely apical akinesis noted. Discharge Physical Examination Unremarkable. Hospital Course Was the Problem List Reviewed?: Yes Stable. Pending Labs Laboratory Tests 08/07/18 07:44: White Blood Count 5.8, Red Blood Count 4.98, Hemoglobin 16.1, Hematocrit 45, Mean Corpuscular Volume 90, Mean Corpuscular Hemoglobin 32, Mean Corpuscular Hemoglobin Concent 36, Red Cell Distribution Width 12.2, Platelet Count 232, Mean Platelet Volume 9.8, Prothrombin Time 16.4, INR Comment 1.3, Activated Partial Thromboplast Time 37, Sodium Level 142, Potassium Level 3.7, Chloride Level 105, Carbon Dioxide Level 25, Anion Gap 12, Blood Urea Nitrogen 16, Creatinine 0.86, Estimat Glomerular Filtration Rate > 60, BUN/Creatinine Ratio 19, Glucose Level 95, Calcium Level 9.2, Corrected Calcium 9.2, Total Bilirubin 0.9, Aspartate Amino Transf (AST/SGOT) 40, Alanine Aminotransferase (ALT/SGPT) 92, Alkaline Phosphatase 57, Total Protein 7.0, Albumin 4.0 Discussion & Recommendations Discussion Discharge instructions discussed at length with the patient and family. Nonischemic cardiomyopathy. I will arrange for consultation with a cardiomyopathy farm supervisor at . Continue rest of the medications. Patient is already on a beta eh, MURRAY inhibitor could not be given due to hypotension. Follow up appt.: Dr. Wing in 10 weeks. Dicharge Diet: Low Sodium Diet Activity as Tolerated: Yes Home Medications Reviewed patient Home Medication Reconciliation performed by pharmacy medication reconciliations mixing technician and/or nursing. Patients Allergies have been reviewed. Discharge Home Medications: Reviewed and agree with Discharge Medication list on patient's Discharge Instruction sheet Condition at discharge Stable. Instructions to patient/family Dr. Wing in 10 weeks. Joann WING MD August 07, 2018 10:09
== END 2018-08-07 14:52 | disposition home or self-care (01) ==
LOC: CATH 07:16 → SDC 09:45 → CATH 14:52
PROVIDERS: ATTEND Internal Medicine Interventional Cardiology
DX: I42.9 Cardiomyopathy, unspecified (principal); I49.5 Sick sinus syndrome; E78.5 Hyperlipidemia, unspecified; G40.909 Epilepsy, unspecified, not intractable, without status epilepticus; Z82.49 Family history of ischemic heart disease and other diseases of the circulatory system; Z95.0 Presence of cardiac pacemaker; Z86.73 Personal history of transient ischemic attack (TIA), and cerebral infarction without residual deficits; Z79.01 Long term (current) use of anticoagulants; Z79.899 Other long term (current) drug therapy
CPT/HCPCS: 36415; 80053; 85027; 85610; 85730; 87081; 93458

== ENCOUNTER 2019-01-01 12:33 | Outpatient (RCR) | payer BC ==
[~2019-01-01 12:33] MED LIST changes: -HEParin (CATH LAB) 2,000 ML IV ONE; -LIDOCAINE 1% INJ 20 ML 20 ML VIAL ONE; +METO-387 PO; -NS IV 1000 ML 1,000 ML ONE; -TRAZ-189 PO; +TRAZ-222 PO
== END 2019-01-09 10:00 | disposition home or self-care (01) ==
PROVIDERS: ATTEND Internal Medicine
DX: I69.351 Hemiplegia and hemiparesis following cerebral infarction affecting right dominant side (principal)

== ENCOUNTER 2019-02-06 13:44 | Outpatient (RCR) | payer BC | END 2019-02-06 16:00 | disposition home or self-care (01) | PROVIDERS: ATTEND Internal Medicine | DX: I69.351 Hemiplegia and hemiparesis following cerebral infarction affecting right dominant side (principal) ==

== ENCOUNTER → 2019-04-07 | Outpatient (CLI) | payer BC ==
--- NOTE | 2019-04-07 14:43 | Diagnostic Imaging Report ---
INDICATION: Dyspnea. TIME OF EXAM: 1:56 p.m. COMPARISON: Correlation is made with prior chest from 01/24/2018. FINDINGS: Cardiac pacemaker remains in place. The heart size is normal. The lungs are clear. No infiltrates are detected. There is no effusion or pneumothorax. IMPRESSION: No acute cardiopulmonary process is identified. Dictated by: Dictated on workstation # [id number]
== END ==
LOC: RAD 13:34
PROVIDERS: ATTEND Internal Medicine
DX: R06.00 Dyspnea, unspecified (principal); Z95.0 Presence of cardiac pacemaker
CPT/HCPCS: 71046

== ENCOUNTER → 2019-04-28 | Outpatient (CLI) | payer BC ==
[~2019-04-28] MED LIST changes: +HOLD METFORMIN - RECEIVED CONTRAST 20 ML VIAL IV SCH; +IOHEXOL 350 MG/ML 100 ML (OMNIPAQUE 350) VIAL IV ONE; -METO-387 PO; +MTP25TSR PO; +NS 100 ML (IVPB) BAG IV ONE; -TRAZ-222 PO; +TRZ50T PO
--- NOTE | 2019-04-28 12:38 | Diagnostic Imaging Report ---
PROCEDURE: CT angiography of the chest with contrast. TECHNIQUE: Multiple contiguous axial images were obtained through the chest after uneventful bolus administration of intravenous contrast. 3D reconstructed CTA MIP acquisitions were also performed. Auto Exposure Controls were utilized during the CT exam to meet ALARA standards for radiation dose reduction. INDICATION: Shortness of breath. No prior studies are available for comparison. Evaluation of the pulmonary arterial system is without evidence of thromboembolism. No filling defects are seen within central, lobar or segmental branches. The thoracic aorta is of normal caliber. No dissection is identified. No pericardial or pleural fluid is identified. No axillary, hilar or mediastinal lymphadenopathy is detected. There is some linear atelectasis or scarring in the right middle lobe. Otherwise lungs appear to be fairly clear. No infiltrates are seen. Upper abdomen is unremarkable. IMPRESSION: 1. No evidence of pulmonary embolism or thoracic aortic dissection. 2. Right middle lobe subsegmental atelectasis or scarring. Dictated by: Dictated on workstation # [id number]
== END ==
LOC: RAD 11:55
PROVIDERS: ATTEND Internal Medicine
DX: R06.00 Dyspnea, unspecified (principal)
CPT/HCPCS: 71275

== ENCOUNTER → 2020-08-01 | Outpatient (CLI) | payer BC, MEDICARE ==
[~2020-08-01] MED LIST changes: -HOLD METFORMIN - RECEIVED CONTRAST 20 ML VIAL IV SCH; -IOHEXOL 350 MG/ML 100 ML (OMNIPAQUE 350) VIAL IV ONE; +METH-732; -METH750T3; -NS 100 ML (IVPB) BAG IV ONE; -PANT40TA3 PO; +PANT40TA52 PO
--- NOTE | 2020-08-01 16:36 | Diagnostic Imaging Report ---
INDICATION: Fall. Injury. COMPARISON: None. FINDINGS: Three views of the left elbow show no fractures, dislocations, or other acute bony abnormalities identified. Joint spaces are well maintained throughout. The soft tissues appear unremarkable. No radiopaque foreign bodies are identified. IMPRESSION: No acute fractures or dislocations of the left elbow. Dictated by: Dictated on workstation # [id number]
== END ==
LOC: RAD 15:53
PROVIDERS: ATTEND Internal Medicine
DX: S59.902A Unspecified injury of left elbow, initial encounter (principal); W19.XXXA Unspecified fall, initial encounter
CPT/HCPCS: 73080

== ENCOUNTER → 2020-09-09 | Outpatient (CLI) | payer MEDICARE, OTHER | LOC: CARD 12:00 | PROVIDERS: ATTEND Internal Medicine Cardiovascular Disease | DX: I42.0 Dilated cardiomyopathy (principal) | CPT/HCPCS: 93306 ==

== ENCOUNTER 2020-11-10 14:03 | Outpatient (RCR) | payer MEDICARE, OTHER | END 2020-11-15 | disposition home or self-care (01) | PROVIDERS: ATTEND Internal Medicine | DX: I69.354 Hemiplegia and hemiparesis following cerebral infarction affecting left non-dominant side (principal); G40.909 Epilepsy, unspecified, not intractable, without status epilepticus; Z95.0 Presence of cardiac pacemaker ==

== ENCOUNTER → 2020-11-10 | Outpatient (CLI) | payer MEDICARE, OTHER ==
--- NOTE | 2020-11-10 14:13 | Diagnostic Imaging Report ---
INDICATION: Left nipple pain. Patient has prior history of lump removal approximately 8 years ago. FINDINGS: Sonographic interrogation of the periareolar and retroareolar left breast was performed. No solid or cystic mass is detected. No sonographic abnormality is detected. IMPRESSION: No sonographic abnormality is detected. ACR BI-RADS Category 1: Negative. Dictated by: Dictated on workstation # [id number]
== END ==
LOC: RAD 12:30
PROVIDERS: ATTEND Internal Medicine
DX: N64.4 Mastodynia (principal); Z98.890 Other specified postprocedural states
CPT/HCPCS: 76642

== ENCOUNTER → 2020-11-18 | Outpatient (CLI) | payer MEDICARE, OTHER ==
[~2020-11-18] MED LIST changes: +REGADENOSON 0.4 MG/5 ML SYR (LEXISCAN) IV ONE
[2020-11-18] MEDS: CATHETER FLUSH 10 ML SYR IV PRN ×2 (08:15→09:51)
[2020-11-18 09:50] VITALS: BP 146/101
--- NOTE | 2020-11-23 09:19 | STRESS TEST ---
DATE OF SERVICE: 11/18/2020 RESTING AND POST REGADENOSON TECHNETIUM-99M TETROFOSMIN SPECT CT IMAGING CLINICAL DIAGNOSIS: Wide complex tachycardia. Baseline images were carried out after injection of 10.46 mCi of technetium-99m Tetrofosmin. This was followed by 0.4 mg regadenoson and 28.2 mCi of technetium-99m Tetrofosmin for stress imaging. The electrocardiogram showed sinus rhythm at baseline. It did not change significantly with the regadenoson infusion. The patient tolerated the procedure well. Review of images at rest and following stress indicates a localized inferoapical perfusion defect that appears relatively small in size and is predominantly fixed. Gated images showed localized inferoapical akinesis. Left ventricular ejection fraction is calculated to be 49%. CONCLUSIONS: 1. This study is indicative of a small inferoapical infarction with minimal jun-infarct ischemia. 2. Localized inferoapical akinesis. 3. Left ventricular ejection fraction is calculated to be 49%. Job ID: [id number] DocumentID: [id number] Dictated Date: 11/23/2020 09:08:19 Automotive Airconditioning Mechanic Date: 11/23/2020 09:18:32 Dictated By: JOSEFINA VICTOR MD, MA, FACP, FACC,
== END ==
LOC: CARD 07:45
PROVIDERS: ATTEND Internal Medicine Cardiovascular Disease
DX: I47.2 Ventricular tachycardia (principal)
CPT/HCPCS: 78452; 93017; A9502

== ENCOUNTER 2020-11-29 13:08 | Outpatient (RCR) | payer MEDICARE, OTHER ==
[~2020-11-29 13:08] MED LIST changes: -REGADENOSON 0.4 MG/5 ML SYR (LEXISCAN) IV ONE
[2020-12-02] MEDS ORDERED: APIX5TAB PO (08:21)
[2020-12-02] MEDS ORDERED: MAGNESIUM L-THREONAT PO (08:21)
[2020-12-02] MEDS ORDERED: METH10TA3 PO (08:21)
[2020-12-02] MEDS ORDERED: FLUO20CA46 PO (08:21)
[2020-12-02] MEDS ORDERED: DIVA500T PO (08:21)
[2020-12-02] MEDS ORDERED: DIVA250T2 PO (08:21)
[2020-12-02] MEDS ORDERED: MTP100TCR PO (08:21)
[2020-12-02] MEDS ORDERED: LEVE500T95 PO (08:21)
== END 2021-02-14 | disposition home or self-care (01) ==
PROVIDERS: ATTEND Internal Medicine
DX: I69.354 Hemiplegia and hemiparesis following cerebral infarction affecting left non-dominant side (principal); M79.605 Pain in left leg; G40.909 Epilepsy, unspecified, not intractable, without status epilepticus

== ENCOUNTER 2020-12-02 08:30 | Day surgery (SDC) | payer MEDICARE, OTHER ==
[~2020-12-02] VITALS: Ht 188 cm; Wt 86.3 kg
[2020-12-02] VITALS (11 sets, daily range): BP systolic 111–139; BP diastolic 68–97
[2020-12-02 08:00] LABS: HEMATOCRIT 48 % (40-54); HEMOGLOBIN 16.4 g/dL (13.3-17.7); MEAN CORPUSCULAR HEMOGLOBIN 30 pg (25-34); MEAN CORPUSCULAR HGB CONC 34 g/dL (32-36); MEAN CORPUSCULAR VOLUME 89 fL (80-99); MEAN PLATELET VOLUME 9.4 fL (9.0-12.2); PLATELET COUNT 219 10^3/uL (130-400); WHITE BLOOD COUNT 6.7 10^3/uL (4.3-11.0)
[2020-12-02 08:19] LABS: PROTHROMBIN TIME PATIENT 13.7 SEC (12.2-14.7)
[2020-12-02 08:20] LABS: ALBUMIN 3.9 GM/DL (3.2-4.5); BILIRUBIN,TOTAL 0.4 MG/DL (0.1-1.0); CREATININE SERUM 0.85 MG/DL (0.60-1.30); POTASSIUM 4.2 MMOL/L (3.6-5.0); TOTAL PROTEIN 7.7 GM/DL (6.4-8.2)
[~2020-12-02 08:30] MED LIST changes: +DIVA250T2 PO; +DIVA500T PO; +FLUO20CA46 PO; +HEParin (CATH LAB) 2,000 ML IV ONE; +LEVE500T95 PO; +LIDOCAINE 1% INJ 20 ML 20 ML VIAL ONE; +MAGNESIUM L-THREONAT PO; +METH10TA3 PO; +MTP100TCR PO; +NS IV 1000 ML 1,000 ML IV SCH; +NS IV 1000 ML 1,000 ML ONE
--- NOTE | 2020-12-02 09:20 | Cardiac Procedure Note-CS/ASA ---
Pre-Procedure Note Pre-Op Procedure Note H&P Reviewed The H&P was reviewed, patient examined and no changes noted. Date H&P Reviewed: Dec 02, 2020 Time H&P Reviewed: 08:20 Conscious Sedation Pre-Proced Time 08:20 ASA Score 3 For ASA 3 and 4: Consider anesthesia and medical clearance. Also, for patients with a history of failed moderate sedation consider anesthesia. Airway Lungs Heart ASA score ASA 1: a normal healthy patient ASA 2: a patient with a mild systemic disease (mid diabetes, controlled hypertension, obesity ASA 3: a patient with a severe systemic disease that limits activity (angina, COPD, prior Myocardial infarction) ASA 4: a patient with an incapacitating disease that is a constant threat to life (CHF, renal failure) ASA 5: a moribund patient not expected to survive 24 hrs. (ruptured aneurysm) ASA 6: a declared brain- patient whose organs are being harvested. For emergent operations, add the letter E after the classification Mallampati Classification Grade 2 Sedation Plan Analgesia, Amnesia, Plan communicated to team members, Discussed options with patient/fam, Discussed risks with patient/fam The patient is an appropriate candidate to undergo the planned procedure, sedation, and anesthesia. The patient immediately re-assessed prior to indication. JOSEFINA VICTOR MD FACP [facility]AC [facility] Dec 02, 2020 09:20
--- NOTE | 2020-12-02 09:28 | Discharge Inst-Post CATH ---
Discharge Inst-CATH/EP Post Cardiac Cath/EP D/C Inst Follow Up/Plan F/u with Dr Osorio in 2 weeks ACTIVITY * Go Home directly and rest. * Limit activity of the leg (or wrist if it was used) for 7 days including aerobics, swimming, jogging, bicycling, etc. * Restrict stair-climbing for 7 days if possible, if not, climb up with your n on-cath leg, then bring together on the same step. * Avoid lifting, pushing, pulling or excessive movement of the affected ex tremity for 7 days. * Customary sexual activity may be resumed after 2 days-use caution not to use a position that strains or causes pain to the affected extremity. * No driving for 24 hours. * NO SMOKING. * Avoid straining for bowel movements for 7 days. * Gentle walking on level ground is allowed. * Returning to work will depend on the type of procedure and the results. Your doctor will discuss this with you. CALL YOUR DOCTOR FOR ANY OF THE FOLLOWING: *If bleeding from the puncture site occurs- Apply gentle pressure to site with clean cloth and call your doctor or EMS. * If a knot or lump forms under the skin, increases in size, or causes pain. * If bruising appears to be worsening or moving further down your leg instead of disappearing. * Temperature above 101 F. CARE OF YOUR GROIN INCISION; * Bruising or purple discoloration of the skin near the puncture site is common. * You may shower only, no bathtub bathing for 5 days. Be careful to avoid slipping as your leg may feel stiff. * If a closure device was used on your femoral artery, please see the attached guide regarding care of the device and your leg. * Leave dressing on FOR 24 hours. CARE OF YOUR WRIST INCISION; * Bruising or purple discoloration of the skin near the puncture site is common. * You may shower. * DO NOT submerge wrist. * Leave dressing on FOR 24 hours. JOSEFINA OSORIO [facility] Dec 02, 2020 09:28
--- NOTE | 2020-12-02 09:28 | Discharge Inst-Cardiology ---
Discharge Inst-Cardiac Discharge Medications Continued Medications: Apixaban (Eliquis) 5 Mg Tablet 5 MG PO BID, TAB Divalproex Sodium (Depakote) 250 Mg Tablet.dr 250 MG PO BID, TAB TAKES 250MG+500MG TO EQUAL 750MG Divalproex Sodium (Depakote) 500 Mg Tablet.dr 500 MG PO BID, TAB TAKES 250MG+500MG TO EQUAL 750MG Fluoxetine HCl (Prozac) 40 Mg Capsule 40 MG PO DAILY, CAP TAKES 20MG +40MG TO EQUAL 60MG DAILY Fluoxetine HCl (Fluoxetine HCl) 20 Mg Capsule 20 MG PO DAILY, CAP TAKES 20MG +40MG TO EQUAL 60MG DAILY Levetiracetam (Levetiracetam ER) 500 Mg Tab.er.24h 1000 MG PO HS, TAB TAKES 2 (500MG) TABS [Magnesium L-Threonat] () 2 EA PO BID Metoprolol Succinate (Metoprolol Succinate) 100 Mg Tab.er.24h 100 MG PO HS, TAB Pantoprazole Sodium (Pantoprazole Sodium) 40 Mg Tablet.dr 40 MG PO Q48H, TAB Discontinued Medications: Methylphenidate HCl (Ritalin) 10 Mg Tablet 5 MG PO 0800,1200, TAB TAKES OF A 10MG TAB JOSEFINA VICTOR MD [facility] Dec 02, 2020 09:28
[2020-12-02] MEDS ORDERED: PATIENT MAY USE OWN MEDS, ALL PO SCH (09:30)
[2020-12-02] MEDS ORDERED: NS IV 1000 ML 1,000 ML IV SCH ×2 (09:30→10:00)
--- NOTE | 2020-12-02 12:27 | CARDIAC CATHETERIZATION ---
DATE OF SERVICE: 12/02/2020 CARDIAC CATHETERIZATION REPORT The patient is a 44-year-old gentleman who has a history of cardiomyopathy. Noninvasive imaging has indicated anteroapical akinesis suggestive of previous infarction. He has recently had a 9-beat run of nonsustained ventricular tachycardia recorded on his pacemaker. Beta blockers have been initiated and he has not had any recurrence. Further investigation is being pursued. Cardiac catheterization was carried out today after having obtained an informed consent. DESCRIPTION OF PROCEDURE: He was brought to the cardiac catheterization laboratory in a fasting state. Right groin was prepared and draped in the usual sterile fashion. Lidocaine 1% was used for local anesthesia. Modified Seldinger technique was used to advance a 5-Syrian sheath in the right femoral artery, 5-Syrian JL4 catheter for left coronary angiography, 5-Syrian JR4 catheter for right coronary angiography, 5-Syrian pigtail catheter was used for left heart catheterization and for aortic root angiography. He tolerated the procedure well. Angiography of the right femoral artery was carried out through the sheath and Mynx was used to achieve hemostasis. HEMODYNAMICS: Left ventricular end-diastolic pressure following coronary angiography was 20 mmHg. There is no significant pressure gradient on pullback across the aortic valve. Ascending aortic pressure was 96/66 with a mean of 83 mmHg. LEFT VENTRICULAR ANGIOGRAPHY: Left ventricular angiography was carried out in the right anterior oblique projection. Global left ventricular systolic function is impaired because of anteroapical dyskinesis. Left ventricular ejection fraction is approximately 40%. CORONARY ANGIOGRAPHY: Left main coronary artery does not exhibit significant disease. Left anterior descending, left circumflex arteries have somewhat sluggish flow, but do not exhibit significant disease. Right coronary artery is dominant and has mild plaques. 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 There is also considerable backflow from the coronary sinus into the right atrium and thus, the presence of fistula cannot be fully confirmed. AORTIC ROOT ANGIOGRAPHY: Aortic root angiography was carried out to see if there is any evidence of arteriovenous fistula. The aortic root and the ascending aorta did not show aneurysmal dilatation. Aortic valve leaflets show good leaflet excursion. There does not appear to be any significant aortic regurgitation. Right coronary artery is identified. On this view, we were not able to identify any arteriovenous fistula. CONCLUSIONS: 1. Mild coronary artery disease. 2. Apical dyskinesis. 3. Impairment of global left ventricular systolic function with ejection fraction approximately 40%. 4. Elevated left ventricular end-diastolic pressure. 5. The presence of a small fistula (right coronary to left atrium) cannot be excluded. DISCUSSION AND RECOMMENDATIONS: Beta eh therapy is being continued. He is also on anticoagulation, which has been continued. He has been referred to electrophysiology (Dr. Berger) and is due to see him in the near future. Job ID: [id number] DocumentID: [id number] Dictated Date: 12/02/2020 09:57:49 Nut Packer Date: 12/02/2020 12:26:46 Dictated By: JOSEFINA VICTOR MD, MA, FACP, FACC,
== END 2020-12-02 12:25 | disposition home or self-care (01) ==
LOC: CATH 08:30 → SDC 09:17 → CATH 12:25
PROVIDERS: ATTEND Internal Medicine Cardiovascular Disease
DX: I25.10 Atherosclerotic heart disease of native coronary artery without angina pectoris (principal); I21.9 Acute myocardial infarction, unspecified; I42.0 Dilated cardiomyopathy; I51.89 Other ill-defined heart diseases; M79.89 Other specified soft tissue disorders; I48.3 Typical atrial flutter; I69.354 Hemiplegia and hemiparesis following cerebral infarction affecting left non-dominant side; F90.9 Attention-deficit hyperactivity disorder, unspecified type; I47.2 Ventricular tachycardia; R53.83 Other fatigue; Z79.899 Other long term (current) drug therapy; Z79.01 Long term (current) use of anticoagulants; Z95.0 Presence of cardiac pacemaker; Z98.890 Other specified postprocedural states
CPT/HCPCS: 36221; 80053; 80061; 85027; 85610; 85730; 87081; 93458; C1760; C1894; 36415

== ENCOUNTER → 2020-12-15 | Outpatient (CLI) | payer MEDICARE, OTHER ==
[~2020-12-15] MED LIST changes: -HEParin (CATH LAB) 2,000 ML IV ONE; -LIDOCAINE 1% INJ 20 ML 20 ML VIAL ONE; -NS IV 1000 ML 1,000 ML IV SCH; -NS IV 1000 ML 1,000 ML ONE
== END ==
LOC: CARD 13:16
PROVIDERS: ATTEND Internal Medicine Cardiovascular Disease
DX: I47.2 Ventricular tachycardia (principal)
CPT/HCPCS: 93306

== ENCOUNTER → 2021-06-05 | Outpatient (RCR) | payer MEDICARE, OTHER ==
[~2021-06-05] MED LIST changes: -FLUO20CA46 PO; +FLUO20CA48 PO
== END | disposition home or self-care (01) ==
PROVIDERS: ATTEND Physical Medicine & Rehabilitation
DX: G81.14 Spastic hemiplegia affecting left nondominant side (principal); R25.2 Cramp and spasm

== ENCOUNTER 2021-07-03 09:33 | Outpatient (RCR) | payer MEDICARE, OTHER | END 2021-07-06 | disposition home or self-care (01) | PROVIDERS: ATTEND Physical Medicine & Rehabilitation | DX: I69.354 Hemiplegia and hemiparesis following cerebral infarction affecting left non-dominant side (principal); R25.2 Cramp and spasm ==

== ENCOUNTER 2021-08-03 10:09 | Outpatient (RCR) | payer MEDICARE, OTHER | END 2021-08-05 | disposition home or self-care (01) | PROVIDERS: ATTEND Physical Medicine & Rehabilitation | DX: I69.354 Hemiplegia and hemiparesis following cerebral infarction affecting left non-dominant side (principal); Z95.0 Presence of cardiac pacemaker ==

== ENCOUNTER 2021-09-01 10:01 | Outpatient (RCR) | payer MEDICARE, OTHER | END 2021-09-01 12:33 | disposition home or self-care (01) | PROVIDERS: ATTEND Physical Medicine & Rehabilitation | DX: I69.354 Hemiplegia and hemiparesis following cerebral infarction affecting left non-dominant side (principal) ==

== ENCOUNTER 2021-12-18 11:14 | Emergency (ER) | payer MEDICARE, OTHER ==
--- NOTE | 2021-12-18 11:59 | ED Abdominal Pain ---
General Chief Complaint: Abdominal/GI Problems Stated Complaint: N/V Nursing Triage Note: PT TO RM 2 BY EMS WITH C/O N/V SINCE SATURDAY EVENING AND NOT BEING ABLE TO TAKE MEDICATIONS IN 2 DAYS. PT CONCERENED DUE TO SEIZURES AND NOT TAKING HIS MEDICINE Source of Information: Patient Exam Limitations: No Limitations History of Present Illness Date Seen by Provider: Dec 18, 2021 Time Seen by Provider: 11:25 Initial Comments This is a 45 yo male who presented to the ER via [facility] with c/o nausea and vomiting since Saturday evening (3 days). States he is unable to eat or drink anything without vomiting. Today he also has dizziness and feels "drunk". No new foods. No ill contacts. He has not been able to take his home medications due to persistent vomiting. He take Keppra and Depakote daily for seizures, last doses were Saturday. He denies fever, chills, cough, shortness of breath, chest pain, abdominal pain, dysuria, hematuria, diarrhea, or constipation. Had COVID last month. No known ill contacts. Allergies and Home Medications Allergies Coded Allergies: No Known Drug Allergies (Unverified , 12/28/09) Patient Home Medication List Home Medication List Reviewed: Yes Apixaban (Eliquis) 5 Mg Tablet, 5 MG PO BID, (Reported) Entered as Reported by: JOHN LARSEN on 12/02/20820 Divalproex Sodium (Depakote) 250 Mg Tablet.dr, 250 MG PO BID, (Reported) Entered as Reported by: JOHN LARSEN on 12/02/20820 Divalproex Sodium (Depakote) 500 Mg Tablet.dr, 500 MG PO BID, (Reported) Entered as Reported by: JOHN LARSEN on 12/02/20820 Fluoxetine HCl (Prozac) 40 Mg Capsule, 40 MG PO DAILY, (Reported) Entered as Reported by: BEV DOBSON on 02/13/18 1017 Fluoxetine HCl (Fluoxetine HCl) 20 Mg Capsule, 20 MG PO DAILY, (Reported) Entered as Reported by: JOHN LARSEN on 12/02/20820 Levetiracetam (Levetiracetam ER) 500 Mg Tab.er.24h, 1,000 MG PO HS, (Reported) Entered as Reported by: JOHN LARSEN on 12/02/20820 Metoprolol Succinate (Metoprolol Succinate) 100 Mg Tab.er.24h, 100 MG PO HS, (Reported) Entered as Reported by: JOHN LARSEN on 12/02/20820 Ondansetron HCl (Ondansetron HCl) 4 Mg Tablet, 4 MG PO Q6H PRN for NAUSEA-1ST LINE Prescribed by: STEVE HOWELL on 12/18/21 1415 Pantoprazole Sodium (Pantoprazole Sodium) 40 Mg Tablet.dr, 40 MG PO Q48H, (Reported) Entered as Reported by: SALVADOR MOYA on 12/26/17 1803 [Magnesium L-Threonat] , 2 EA PO BID, (Reported) Entered as Reported by: JOHN LARSEN on 12/02/20820 Review of Systems Review of Systems Constitutional: no symptoms reported EENTM: No Symptoms Reported Respiratory: No Symptoms Reported Cardiovascular: No Symptoms Reported Gastrointestinal: See HPI Genitourinary: Denies Burning, Denies Discharge; Other (dark urine ) Musculoskeletal: no symptoms reported Skin: no symptoms reported Psychiatric/Neurological: Pre-Existing Deficit (left hand contracture ), Tremors (chronic ) Endocrine: No Symptoms Reported Hematologic/Lymphatic: No Symptoms Reported Past Nsesqeg-Ljebtn-Dechzr Hx Patient Social History Tobacco Use?: No Use of E-Cig and/or Vaping dev: No Substance use?: No Alcohol Use?: No Pt feels they are or have been: No Immunizations Up To Date Tetanus Booster (TDap): Unknown PED Vaccines UTD: Yes Influenza Vaccine Up-to-Date: No; Not Current First/Initial COVID19 Vaccinat: 2020 Second COVID19 Vaccination Marcio: 2020 COVID19 Vaccine Hand Salter: [place] Seasonal Allergies Seasonal Allergies: No Past Medical History Surgery/Hospitalization HX: SEIZURES, SVT, AFIB, TACHYCARDIA, BRADYCARDIA ICD, HEART CATH, ABLASION, DEFIB Surgeries: Yes (cyst removed from chest, LOOP IMPLANT, UMBILICAL HERNIA) Abdominal, Pacemaker Respiratory: No Currently Using CPAP: No Cardiac: Yes (stroke 2017, dvt right leg, sick sinus syndrome) Deep Vein Thrombosis Neurological: Yes Seizure Disorder, Stroke Reproductive Disorders: No Sexually Transmitted Disease: No HIV/AIDS: No Genitourinary: No Gastrointestinal: Yes Gastroesophageal Reflux Musculoskeletal: No Endocrine: Yes (hypo-testosterone) HEENT: No Loss of Vision: Bilateral Hearing Impairment: Denies Cancer: No Psychosocial: No Integumentary: No Blood Disorders: No Adverse Reaction/Blood Tranf: No (N/A) Family Medical History Patient reports no known family medical history. Heart Disease Physical Exam Vital Signs Vital Signs - First Documented 12/18/21 11:16 Temp 36.4 Pulse 72 Resp 18 B/P (MAP) 135/79 (97) Capillary Refill : Height/Weight/BMI Height: 6'2.00" Weight: 165lbs. 0.0oz. 74.508169ov; 24.41 BMI Method:Stated General Appearance: WD/WN, no apparent distress HEENT: PERRL/EOMI, normal ENT inspection Neck: supple, normal inspection Respiratory: lungs clear, normal breath sounds, no respiratory distress, no accessory muscle use Cardiovascular: regular rate, rhythm, systolic murmur Gastrointestinal: normal bowel sounds, non tender, soft Extremities: normal range of motion, non-tender, normal inspection Neurologic/Psychiatric: alert, normal mood/affect, oriented x 3, other (contracture of left hand ) Skin: normal color, warm/dry Progress/Results/Core Measures Results/Orders Lab Results Laboratory Tests Test 12/18/21 11:27 12/18/21 13:00 Range/Units White Blood Count 10.9 4.3-11.0 10^3/uL Red Blood Count 5.19 4.30-5.52 10^6/uL Hemoglobin 16.6 13.3-17.7 g/dL Hematocrit 47 40-54 % Mean Corpuscular Volume 90 80-99 fL Mean Corpuscular Hemoglobin 32 25-34 pg Mean Corpuscular Hemoglobin Concent 36 32-36 g/dL Red Cell Distribution Width 12.4 10.0-14.5 % Platelet Count 191 130-400 10^3/uL Mean Platelet Volume 9.8 9.0-12.2 fL Immature Granulocyte % (Auto) 0 % Neutrophils (%) (Auto) 69 42-75 % Lymphocytes (%) (Auto) 24 12-44 % Monocytes (%) (Auto) 7 0-12 % Eosinophils (%) (Auto) 0 0-10 % Basophils (%) (Auto) 0 0-10 % Neutrophils # (Auto) 7.5 1.8-7.8 10^3/uL Lymphocytes # (Auto) 2.6 1.0-4.0 10^3/uL Monocytes # (Auto) 0.8 0.0-1.0 10^3/uL Eosinophils # (Auto) 0.0 0.0-0.3 10^3/uL Basophils # (Auto) 0.0 0.0-0.1 10^3/uL Immature Granulocyte # (Auto) 0.0 0.0-0.1 10^3/uL Prothrombin Time 14.4 12.2-14.7 SEC INR Comment 1.1 0.8-1.4 Activated Partial Thromboplast Time 27 24-35 SEC Sodium Level 142 135-145 MMOL/L Potassium Level 3.8 3.6-5.0 MMOL/L Chloride Level 106 98-107 MMOL/L Carbon Dioxide Level 23 21-32 MMOL/L Anion Gap 13 5-14 MMOL/L Blood Urea Nitrogen 25 H 7-18 MG/DL Creatinine 0.82 0.60-1.30 MG/DL Estimat Glomerular Filtration Rate 112 BUN/Creatinine Ratio 30 Glucose Level 143 H 70-105 MG/DL Calcium Level 9.2 8.5-10.1 MG/DL Corrected Calcium 9.3 8.5-10.1 MG/DL Magnesium Level 1.7 1.6-2.4 MG/DL Total Bilirubin 0.8 0.1-1.0 MG/DL Aspartate Amino Transf (AST/SGOT) 17 5-34 U/L Alanine Aminotransferase (ALT/SGPT) 18 0-55 U/L Alkaline Phosphatase 41 40-136 U/L Total Creatine Kinase 53 30-200 U/L Creatine Kinase MB 1.0 <6.6 NG/ML Myoglobin 48.5 10.0-92.0 NG/ML Troponin I < 0.028 <0.028 NG/ML B-Type Natriuretic Peptide 43.1 <100.0 PG/ML Total Protein 7.3 6.4-8.2 GM/DL Albumin 3.9 3.2-4.5 GM/DL Urine Color YELLOW Urine Clarity CLEAR Urine pH 6.5 5-9 Urine Specific [place] 1.025 H 1.016-1.022 Urine Protein TRACE H NEGATIVE Urine Glucose (UA) NEGATIVE NEGATIVE Urine Ketones NEGATIVE NEGATIVE Urine Nitrite NEGATIVE NEGATIVE Urine Bilirubin NEGATIVE NEGATIVE Urine Urobilinogen 2.0 < = 1.0 MG/DL Urine Leukocyte Esterase NEGATIVE NEGATIVE Urine RBC (Auto) NEGATIVE NEGATIVE Urine RBC NONE /HPF Urine WBC 0-2 /HPF Urine Crystals NONE /LPF Urine Bacteria NEGATIVE /HPF Urine Casts NONE /LPF Urine Mucus LARGE H /LPF Urine Culture Indicated NO My Orders Orders - STEVE HOWELL APRN Ekg Tracing (12/18/21 11:30) Ondansetron Injection (Zofran Injectio (12/18/21 12:00) Cbc With Automated Diff (12/18/21 11:56) Magnesium (12/18/21 11:56) Chest 1 View, Ap/Pa Only (12/18/21 11:56) Comprehensive Metabolic Panel (12/18/21 11:56) Myoglobin Serum (12/18/21 11:56) Protime With Inr (12/18/21 11:56) Partial Thromboplastin Time (12/18/21 11:56) O2 (12/18/21 11:56) Monitor-Rhythm Ecg Trace Only (12/18/21 11:56) Ed Iv/Invasive Line Start (12/18/21 11:56) Creatine Kinase (12/18/21 11:56) Creatine Kinase Mb (12/18/21 11:56) Bnp Payne (12/18/21 11:56) Troponin I Payne (12/18/21 11:56) Levetiracetam Injection (Keppra Injectio (12/18/21 12:15) Ua Culture If Indicated (12/18/21 12:43) Ekg Tracing (12/18/21 12:43) Ct Abdomen/Pelvis Wo (12/18/21 12:55) Ns Iv 1000 Ml (Sodium Chloride 0.9%) (12/18/21 13:15) Medications Given in ED Current Medications Medications Dose Ordered Sig/[place] Route Start Time Stop Time Status Last Admin Dose Admin Sodium Chloride 1,000 ml @ 0 mls/hr Q0M ONCE IV 12/18/21 13:15 12/18/21 13:16 DC 12/18/21 13:18 1,000 MLS/HR Vital Signs/I&O 12/18/21 12/18/21 11:16 14:26 Temp 36.4 36.4 Pulse 72 75 Resp 18 18 B/P (MAP) 135/79 (97) 124/74 9/12/22 23:59 Intake Total 1100 ml Balance 1100 ml Blood Pressure Mean: 97 Progress Progress Note : Progress Note Patient examined and no acute distress. Given Zofran 4mg IV per EMS, nausea controlled. Basic labs, cardiac enzymes, and UA ordered. Orders placed for IV Keppra. Labs reviewed, CBC unremarkable. Slight elevation in BUN-25, creatinine at baseline 0.8. Neg UA for UTI. EKG unchanged from previous. Cardiac enzymes WNL. CT abd/pelvis negative. [place] much improved after IVF and Zofran, attempted to chug glass of water and he vomited back up. Instructed to take small frequent sips, verbalized understanding. States he felt much improved and felt comfortable discharging. Discharge POC reviewed and he is agreeable with plan. Initial ECG Impression Date: Dec 18, 2021 Initial ECG Impression Time: 13:36 Initial ECG Rate: 74 Initial ECG Rhythm: Normal Sinus Initial ECG Intervals Atrial Paced. Initial ECG Impression: Normal Initial ECG Comparisson: Unchanged Diagnostic Imaging Diagonstic Imaging: Xray Comments [facility] [place] NAME: SVEN MICHELE [facility] REC#: [id number] PT STATUS: DEP ER : 1975 PHYSICIAN: STEVE HOWELL SCAFFOLDER ADMIT DATE: 12/18/21/ER Signed Date of Exam:12/18/21 CHEST 1 VIEW, AP/PA ONLY INDICATION: Chest pain. TIME OF EXAM: 12:09 p.m. COMPARISON: Correlation is made with prior chest from 12/31/2017. FINDINGS: Heart size is stable. Cardiac defibrillator is in place. Lungs are clear. No infiltrates are seen. There is no effusion or pneumothorax. IMPRESSION: No acute cardiopulmonary process is detected. Dictated by: Dictated on workstation # [id number] Dict: 12/18/21 1212 Trans: 12/18/21 1631 AS6 [id number] Interpreted by: KEVIN TORRES MD Electronically signed by: KEVIN TORRES MD 12/18/21 1631 Diagonstic Imaging: CT Plain Films/CT/US/NM/MRI: abdomen, pelvis Comments [facility] [place] NAME: SVEN MICHELE [facility] REC#: [id number] PT STATUS: REG ER : 1975 PHYSICIAN: STEVE HOWELL APRN ADMIT DATE: 12/18/21/ER Signed Date of Exam:12/18/21 CT ABDOMEN/PELVIS WO PROCEDURE: CT abdomen and pelvis without contrast. TECHNIQUE: Multiple contiguous axial images were obtained through the abdomen and pelvis without the use of intravenous contrast. Auto Exposure Controls were utilized during the CT exam to meet ALARA standards for radiation dose reduction. INDICATION: Nausea and vomiting. Abdominal pain. COMPARISON: None. FINDINGS: The heart is unremarkable. The lung bases are clear. The liver, spleen, pancreas, adrenal glands, and kidneys have a normal noncontrast CT appearance. The gallbladder is unremarkable. There is no pathologically enlarged mesenteric or retroperitoneal adenopathy. The bowel loops are nondilated. The appendix is visualized in the right lower quadrant and has a normal appearance. There is no free fluid or free air. No acute osseous abnormalities. Ureters and bladder are normal. There is no free air, loculated collection, or adenopathy in the pelvis. IMPRESSION: 1. No acute abnormalities in the abdomen and pelvis. No bowel obstruction, free fluid, or free air. Normal appendix. Dictated by: Dictated on workstation # [id number] Dict: 12/18/21 1328 Trans: 12/18/21 1335 AS6 [id number] Interpreted by: KENTON RAY DO Electronically signed by: KENTON RAY DO 12/18/21 1335 Reviewed: Reviewed by Me Departure Impression Primary Impression: Nausea and vomiting Additional Impression: Dehydration Disposition: 01 HOME, SELF-CARE Condition: Improved Departure-Patient Inst. Decision time for Depature: 14:12 Patient Instructions: Nausea and Vomiting, Adult ED Add. Discharge Instructions: Plan: 1. Drink plenty of fluids to keep your urine pale yellow. 2. May take Zofran every 4 hours as needed for nausea and vomiting. 3. Start with clear liquids and advance slowly as tolerated. 4. Return to ER for any new, concerning, or worsening symptoms. All discharge instructions reviewed with patient and/or family. Voiced understanding. Scripts Ondansetron HCl (Ondansetron HCl) 4 Mg Tablet 4 MG PO Q6H PRN for NAUSEA-1ST LINE, #20 TAB 0 Refills Prov: STEVE HOWELL APRN 12/18/21 STEVE HOWELL APRN Dec 18, 2021 11:59
[2021-12-18] MEDS ORDERED: ONDANSETRON 4 MG/2 ML (SDV) Z0FRAN IVP ONE (12:00)
[2021-12-18 12:02] LABS: BASOPHILS % (AUTO) 0 % (0-10); EOSINOPHILS % (AUTO) 0 % (0-10); HEMATOCRIT 47 % (40-54); HEMOGLOBIN 16.6 g/dL (13.3-17.7); LYMPHOCYTES # (AUTO) 2.6 10^3/uL (1.0-4.0); LYMPHOCYTES % (AUTO) 24 % (12-44); MEAN CORPUSCULAR HEMOGLOBIN 32 pg (25-34); MEAN CORPUSCULAR HGB CONC 36 g/dL (32-36); MEAN CORPUSCULAR VOLUME 90 fL (80-99); MEAN PLATELET VOLUME 9.8 fL (9.0-12.2); MONOCYTES # (AUTO) 0.8 10^3/uL (0.0-1.0); MONOCYTES % (AUTO) 7 % (0-12); NEUTROPHILS # (AUTO) 7.5 10^3/uL (1.8-7.8); NEUTROPHILS % (AUTO) 69 % (42-75); PLATELET COUNT 191 10^3/uL (130-400); WHITE BLOOD COUNT 10.9 10^3/uL (4.3-11.0)
[2021-12-18 12:08] LABS: ALBUMIN 3.9 GM/DL (3.2-4.5); INR 1.1 (0.8-1.4); POTASSIUM 3.8 MMOL/L (3.6-5.0); PROTHROMBIN TIME PATIENT 14.4 SEC (12.2-14.7)
[2021-12-18 12:09] LABS: CALCIUM 9.2 MG/DL (8.5-10.1)
[2021-12-18 12:11] LABS: TOTAL PROTEIN 7.3 GM/DL (6.4-8.2)
[2021-12-18 12:13] LABS: BILIRUBIN,TOTAL 0.8 MG/DL (0.1-1.0)
[2021-12-18 12:14] LABS: CREATININE SERUM 0.82 MG/DL (0.60-1.30)
[2021-12-18 12:17] LABS: MAGNESIUM 1.7 MG/DL (1.6-2.4)
--- NOTE | 2021-12-18 12:17 | Diagnostic Imaging Report ---
INDICATION: Chest pain. TIME OF EXAM: 12:09 p.m. COMPARISON: Correlation is made with prior chest from 12/31/2017. FINDINGS: Heart size is stable. Cardiac defibrillator is in place. Lungs are clear. No infiltrates are seen. There is no effusion or pneumothorax. IMPRESSION: No acute cardiopulmonary process is detected. Dictated by: Dictated on workstation # [id number]
[2021-12-18 13:15] LABS: CLARITY,URINE CLEAR; COLOR,URINE YELLOW; GLUCOSE, URINE (UA) NEGATIVE (NEGATIVE); KETONES,URINE NEGATIVE (NEGATIVE); LEUKOCYTE ESTERASE ,URINE NEGATIVE (NEGATIVE); NITRITE,URINE NEGATIVE (NEGATIVE); PH,URINE 6.5 (5-9); PROTEIN,URINE TRACE (NEGATIVE)
[2021-12-18] MEDS ORDERED: NS IV 1000 ML 1,000 ML IV ONE (13:15)
[2021-12-18 13:24] LABS: BACTERIA,URINE NEGATIVE /HPF; BILIRUBIN,URINE NEGATIVE (NEGATIVE); WBC,URINE 0-2 /HPF
--- NOTE | 2021-12-18 13:33 | Diagnostic Imaging Report ---
PROCEDURE: CT abdomen and pelvis without contrast. TECHNIQUE: Multiple contiguous axial images were obtained through the abdomen and pelvis without the use of intravenous contrast. Auto Exposure Controls were utilized during the CT exam to meet ALARA standards for radiation dose reduction. INDICATION: Nausea and vomiting. Abdominal pain. COMPARISON: None. FINDINGS: The heart is unremarkable. The lung bases are clear. The liver, spleen, pancreas, adrenal glands, and kidneys have a normal noncontrast CT appearance. The gallbladder is unremarkable. There is no pathologically enlarged mesenteric or retroperitoneal adenopathy. The bowel loops are nondilated. The appendix is visualized in the right lower quadrant and has a normal appearance. There is no free fluid or free air. No acute osseous abnormalities. Ureters and bladder are normal. There is no free air, loculated collection, or adenopathy in the pelvis. IMPRESSION: 1. No acute abnormalities in the abdomen and pelvis. No bowel obstruction, free fluid, or free air. Normal appendix. Dictated by: Dictated on workstation # [id number]
[2021-12-18] MEDS ORDERED: ONDA-105 PO (14:15)
[2021-12-18 14:26] VITALS: BP 124/74
== END 2021-12-18 14:27 | disposition home or self-care (01) ==
LOC: EDUNIT# 11:14 → ER 11:15
DX: E86.0 Dehydration (principal); R11.2 Nausea with vomiting, unspecified; R79.89 Other specified abnormal findings of blood chemistry; G40.909 Epilepsy, unspecified, not intractable, without status epilepticus; Z86.16 Personal history of COVID-19; Z79.899 Other long term (current) drug therapy
CPT/HCPCS: 36415; 71045; 74176; 80053; 81000; 82550; 82553; 83735; 83874; 83880; 84484; 85025; 85610; 85730; 93005; 93041

== ENCOUNTER 2022-10-30 18:53 | Emergency (ER) | payer MEDICARE, OTHER ==
[~2022-10-30] VITALS: Ht 188 cm; Wt 90.7 kg
[~2022-10-30 18:53] MED LIST changes: +ONDA-105 PO; -UBID300C PO; +UBID300C2 PO
[2022-10-30 20:08] LABS: HEMATOCRIT 47 % (40-54); HEMOGLOBIN 16.2 g/dL (13.3-17.7); MEAN CORPUSCULAR HGB CONC 35 g/dL (32-36); MEAN CORPUSCULAR VOLUME 91 fL (80-99); WHITE BLOOD COUNT 7.7 10^3/uL (4.3-11.0)
[2022-10-30 20:09] LABS: MEAN PLATELET VOLUME 9.5 fL (9.0-12.2); PLATELET COUNT 174 10^3/uL (130-400)
--- NOTE | 2022-10-30 21:02 | ED General ---
General Chief Complaint: Head/Cervical Problems Stated Complaint: HEADACHE Nursing Triage Note: PT TO ROOM 05 VIA W/C WITH C/O ANTERIOR HEADACHE, N/V, X2 DAYS. Source of Information: Patient Exam Limitations: No Limitations History of Present Illness Date Seen by Provider: Oct 30, 2022 Time Seen by Provider: 19:35 Initial Comments Here with report of headache on the left side and frontal as well as nausea and vomiting over the last 2 days. Notes fever yesterday. Did note left-sided neck pain prior to onset of headache a few days ago and sometimes gets that. Denies cough, runny nose, sore throat, breathing problems, dysuria or diarrhea. Does have history of bladder incontinence and is due to follow-up with urology. Does have history of stroke affecting the left side and he is on anticoagulation. He does have a pacemaker defibrillator placed for that and has had previous ablation. Here with his . 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 He is vaccinated for COVID but not influenza. No family members are sick. Denies any wounds. Denies recent falls or injuries. Timing/Duration: 2-3 Days Severity: Moderate Associated Systoms: No Chest Pain, No Cough; Fever/Chills, Headaches; No Nausea/Vomiting, No Shortness of Air, No Weakness Allergies and Home Medications Allergies Coded Allergies: No Known Drug Allergies (Unverified , 12/28/09) Patient Home Medication List Home Medication List Reviewed: Yes Apixaban (Eliquis) 5 Mg Tablet, 5 MG PO BID, (Reported) Entered as Reported by: JOHN LARSEN on 12/02/20820 Divalproex Sodium (Depakote) 250 Mg Tablet.dr, 250 MG PO BID, (Reported) Entered as Reported by: JOHN LARSEN on 12/02/20820 Divalproex Sodium (Depakote) 500 Mg Tablet.dr, 500 MG PO BID, (Reported) Entered as Reported by: JOHN LARSEN on 12/02/20820 Fluoxetine HCl (Prozac) 40 Mg Capsule, 40 MG PO DAILY, (Reported) Entered as Reported by: BEV DOBSON on 02/13/18 1017 Fluoxetine HCl (Fluoxetine HCl) 20 Mg Capsule, 20 MG PO DAILY, (Reported) Entered as Reported by: JOHN LARSEN on 12/02/20820 Levetiracetam (Levetiracetam ER) 500 Mg Tab.er.24h, 1,000 MG PO HS, (Reported) Entered as Reported by: JOHN LARSEN on 12/02/20820 Metoprolol Succinate (Metoprolol Succinate) 100 Mg Tab.er.24h, 100 MG PO HS, (Reported) Entered as Reported by: JOHN LARSEN on 12/02/20820 Ondansetron HCl (Ondansetron HCl) 4 Mg Tablet, 4 MG PO Q6H PRN for NAUSEA-1ST LINE Prescribed by: STEVE HOWELL on 12/18/21 1415 Pantoprazole Sodium (Pantoprazole Sodium) 40 Mg Tablet.dr, 40 MG PO Q48H, (Reported) Entered as Reported by: SALVADOR MOYA on 12/26/17 1803 [Magnesium L-Threonat] , 2 EA PO BID, (Reported) Entered as Reported by: JOHN LARSEN on 12/02/20820 Review of Systems Review of Systems Constitutional: see HPI; No chills; fever EENTM: No nose congestion, No throat pain Respiratory: No cough, No short of breath Cardiovascular: No chest pain, No edema Gastrointestinal: No abdominal pain; nausea; No vomiting Genitourinary: No dysuria, No frequency Musculoskeletal: muscle pain, neck pain Skin: no symptoms reported Psychiatric/Neurological: Headache; Denies Numbness, Denies Weakness Past Pcfuepz-Ogadlk-Eywuyt Hx Patient Social History Tobacco Use?: No Smoking Status: Never a Smoker Smokeless Tobacco Frequency: Never a User Use of E-Cig and/or Vaping dev: No Use of E-Cig and/or Vaping [place]: Never a User Substance use?: No Alcohol Use?: No Pt feels they are or have been: No Immunizations Up To Date Tetanus Booster (TDap): Unknown PED Vaccines UTD: Yes First/Initial COVID19 Vaccinat: 2020 Second COVID19 Vaccination Marcio: 2020 Seasonal Allergies Seasonal Allergies: No Past Medical History Surgery/Hospitalization HX: SEIZURES, SVT, AFIB, TACHYCARDIA, BRADYCARDIA ICD, HEART CATH, ABLASION, DEFIB Surgeries: Yes (cyst removed from chest, LOOP IMPLANT, UMBILICAL HERNIA) Abdominal, Pacemaker Respiratory: No Currently Using CPAP: No Cardiac: Yes (stroke 2017, dvt right leg, sick sinus syndrome) Deep Vein Thrombosis Neurological: Yes Seizure Disorder, Stroke Reproductive Disorders: No Sexually Transmitted Disease: No HIV/AIDS: No Genitourinary: No Gastrointestinal: Yes Gastroesophageal Reflux Musculoskeletal: No Endocrine: Yes (hypo-testosterone) HEENT: No Loss of Vision: Bilateral Hearing Impairment: Denies Cancer: No Psychosocial: No Integumentary: No Blood Disorders: No Adverse Reaction/Blood Tranf: No (N/A) Family Medical History Reviewed Nursing Family Hx Patient reports no known family medical history. Heart Disease Physical Exam Vital Signs Vital Signs - First Documented 10/30/22 19:16 Temp 37.7 Pulse 78 Resp 15 B/P (MAP) 136/97 (110) O2 Delivery Room Air Capillary Refill : Less Than 3 Seconds Height, Weight, BMI Height: 6'2.00" Weight: 165lbs. 0.0oz. 74.330991on; 25.00 BMI Method:Stated General Appearance: No Apparent Distress, WD/WN HEENT: PERRL/EOMI, Pharynx Normal Neck: Non Tender, Supple Respiratory: Lungs Clear, Normal Breath Sounds Cardiovascular: Regular Rate, Rhythm, No Murmur Gastrointestinal: Non Tender, Soft Back: Normal Inspection, No CVA Tenderness, No Vertebral Tenderness Extremity: Non Tender, Other (Chronic left-sided weakness from stroke but at baseline) Neurologic/Psychiatric: Alert, Oriented x3 Skin: Normal Color, Warm/Dry Progress/Results/Core Measures Suspected Sepsis SIRS Temperature: Pulse: 78 Respiratory Rate: 15 Laboratory Tests 10/30/22 19:43: White Blood Count 7.7 Blood Pressure 136 /97 Mean: 110 Laboratory Tests 10/30/22 19:43: Creatinine 0.92, Platelet Count 174, Total Bilirubin 0.7 Results/Orders Lab Results Laboratory Tests Test 10/30/22 19:43 10/30/22 21:29 Range/Units White Blood Count 7.7 4.3-11.0 10^3/uL Red Blood Count 5.15 4.30-5.52 10^6/uL Hemoglobin 16.2 13.3-17.7 g/dL Hematocrit 47 40-54 % Mean Corpuscular Volume 91 80-99 fL Mean Corpuscular Hemoglobin 32 25-34 pg Mean Corpuscular Hemoglobin Concent 35 32-36 g/dL Red Cell Distribution Width 11.9 10.0-14.5 % Platelet Count 174 130-400 10^3/uL Mean Platelet Volume 9.5 9.0-12.2 fL Immature Granulocyte % (Auto) 1 % Neutrophils (%) (Auto) 52 42-75 % Lymphocytes (%) (Auto) 35 12-44 % Monocytes (%) (Auto) 11 0-12 % Eosinophils (%) (Auto) 1 0-10 % Basophils (%) (Auto) 1 0-10 % Neutrophils # (Auto) 4.0 1.8-7.8 10^3/uL Lymphocytes # (Auto) 2.7 1.0-4.0 10^3/uL Monocytes # (Auto) 0.8 0.0-1.0 10^3/uL Eosinophils # (Auto) 0.0 0.0-0.3 10^3/uL Basophils # (Auto) 0.1 0.0-0.1 10^3/uL Immature Granulocyte # (Auto) 0.1 0.0-0.1 10^3/uL Sodium Level 136 135-145 MMOL/L Potassium Level 3.9 3.6-5.0 MMOL/L Chloride Level 98 98-107 MMOL/L Carbon Dioxide Level 26 21-32 MMOL/L Anion Gap 12 5-14 MMOL/L Blood Urea Nitrogen 14 7-18 MG/DL Creatinine 0.92 0.60-1.30 MG/DL Estimat Glomerular Filtration Rate 105 BUN/Creatinine Ratio 15 Glucose Level 110 H 70-105 MG/DL Calcium Level 9.7 8.5-10.1 MG/DL Corrected Calcium 9.4 8.5-10.1 MG/DL Total Bilirubin 0.7 0.1-1.0 MG/DL Aspartate Amino Transf (AST/SGOT) 19 5-34 U/L Alanine Aminotransferase (ALT/SGPT) 30 0-55 U/L Alkaline Phosphatase 50 40-136 U/L C-Reactive Protein High Sensitivity 0.30 0.00-0.50 MG/DL Total Protein 8.1 6.4-8.2 GM/DL Albumin 4.4 3.2-4.5 GM/DL SARS-CoV-2 RNA (RT-PCR) Not Detected Not Detecte My Orders Orders - DARSHAN MORTENSEN MD Comprehensive Metabolic Panel (10/30/22 19:43) Hs C Reactive Protein (10/30/22 19:43) Covid 19 Inhouse Test (10/30/22 19:43) Urinalysis (10/30/22 19:51) Ns Iv 1000 Ml (Sodium Chloride 0.9%) (10/30/22 21:17) Ed Iv/Invasive Line Start (10/30/22 21:17) Ketorolac Injection (Toradol Injection) (10/30/22 21:17) Orphenadrine Inj (Ed Only) (Norflex Inje (10/30/22 21:17) Ct Head Wo (10/30/22 ) Acetaminophen Tablet (Tylenol Tablet) (10/30/22 21:29) Ed Iv/Invasive Line Start (10/30/22 21:29) Ns Iv 500 Ml (Sodium Chloride 0.9%) (10/30/22 21:30) Cbc With Automated Diff (10/30/22 19:43) Medications Given in ED Current Medications Medications Dose Ordered Sig/Troy Route Start Time Stop Time Status Last Admin Dose Admin Sodium Chloride 500 ml @ 0 mls/hr Q0M ONCE IV 10/30/22 21:30 10/30/22 21:31 DC 10/30/22 21:36 999 MLS/HR Vital Signs/I&O 10/30/22 19:16 Temp 37.7 Pulse 78 Resp 15 B/P (MAP) 136/97 (110) O2 Delivery Room Air Capillary Refill : Less Than 3 Seconds Blood Pressure Mean: 110 Progress Note : Progress Note Seen and evaluated. Patient has complex history. We will go ahead and get CT of the head due to history of stroke and on anticoagulation with new headache. I will check basic labs including CBC and CMP due to vomiting and fever. We will check UA due to chronic intermittent incontinence and fever. Monitor patient. Differential diagnosis Viral syndrome, UTI, dehydration, electrolyte abnormality, intracranial hemorrhage Patient was given Norflex 60 mg IM for pain. 2030: Patient to CT. Images will need to be sent to stat rad as servers ago currently. I will review images when complete. 2037: CT of the head reviewed by me in the department. No obvious intracranial hemorrhage on my interpretation. Likely old stroke findings on right. Toradol 30 mg IV ordered for neck pain and body aches. CBC resulted and reviewed by me and shows no significant abnormality and is grossly normal overall. CMP reviewed and is grossly normal with normal electrolytes and only slightly elevated glucose at 110. Creatinine is normal. 2200: COVID is negative and CRP is negative. We are still pending UA. I have repeat dose normal saline at 500 mL bolus. He is overall feeling better. Monitor patient. 2314: Patient is actually doing better currently. He is still not able to provide UA but he is feeling better and headache has improved some. We did give acetaminophen 1 g p.o. and he tolerated that well. I did discuss with him about continuing to wait for UA versus going home and following up with PCP. At this point, he feels comfortable going home and his does too. I did recommend they do follow-up with his neurologist regarding headaches especially since he h as had complex course with stroke in early life and seizures as well as the cardiac conditions. Discharged home with return precautions. Patient verbalized understanding of instructions and agreement with plan. Diagnostic Imaging Diagonstic Imaging: CT Plain Films/CT/US/NM/MRI: head Comments No acute intracranial hemorrhage, midline shift, or mass effect. Encephalomalacia in the right MCA territory consistent with old infarct. [facility] [place] NAME: [facility] REC#: [id number] PT STATUS: REG ER : 1975 PHYSICIAN: DARSHAN MORTENSEN MD ADMIT DATE: 10/30/22/ER Draft Date of Exam:10/30/22 CT HEAD WO PROCEDURE: CT head without contrast. TECHNIQUE: Multiple contiguous axial images were obtained through the brain without the use of intravenous contrast. Auto Exposure Controls were utilized during the CT exam to meet ALARA standards for radiation dose reduction. INDICATION: Acute mental status change, prior history of stroke EXAMINATION: CT brain without contrast from 10/30/2022 COMPARISON: 12/26/2017 FINDINGS: There is a large area of encephalomalacia in the right parietal lobe. Secondary ex-vacuo dilatation of the right lateral ventricle stable. Other areas of chronic ischemic disease noted with no superimposed acute hemorrhage or infarct. There is no mass, mass effect or midline shift with no hydrocephalus. There is no acute sinus disease. IMPRESSION: 1. Chronic findings with no acute intracranial process. Dictated on workstation # [id number] Dict: 10/30/222134 Trans: 10/30/222143 REMY [id number] Interpreted by: TERRI RASHID MD Electronically signed by: Reviewed: Reviewed Night Hawk Study, Reviewed by Me Departure Impression Primary Impression: Headache Qualified Codes: R51.9 - Headache, unspecified Additional Impression: Nausea and vomiting Qualified Codes: R11.2 - Nausea with vomiting, unspecified Disposition: 01 HOME, SELF-CARE Condition: Stable Departure-Patient Inst. Decision time for Depature: 23:16 Referrals: EUSEBIA DEAL MD (PCP/Family) Primary Care Physician Patient Instructions: Headache, Adult (DC), Cervical Muscle Strain (DC), Nausea and Vomiting, Adult (DC) Add. Discharge Instructions: All discharge instructions reviewed with patient and/or family. Voiced understanding. You may continue Tylenol/acetaminophen 1000 mg every 6 hours as needed for headache. For the neck muscle pain, you may use topical agents such as IcyHot with lidocaine cream, Aspercreme with lidocaine cream or similar agents to area of concern per package directions. Follow-up with Dr. Deal for recheck and further evaluation. You should also follow-up with your neurologist to discuss the headaches. Return for worse pain, fever, vomiting, weakness, breathing problems, worsening or increasing headache or other concerns as needed. Copy Copies To 1: EUSEBIA DEAL MD, TIMOTHY D MD Oct 30, 2022 21:02
[2022-10-30] MEDS ORDERED: NS IV 1000 ML 1,000 ML IV STA (21:17)
[2022-10-30] MEDS ORDERED: ORPHENADRINE 60 MG/2 ML (NORFLEX) AMP (ED ONLY) IV STA (21:17)
[2022-10-30] MEDS ORDERED: KETOROLAC 30 MG/ML VIAL IVP STA (21:17)
[2022-10-30] MEDS ORDERED: ACETAMINOPHEN 500 MG TABLET PO STA (21:29)
[2022-10-30] MEDS ORDERED: NS IV 500 ML 500 ML IV ONE (21:30)
[2022-10-30 21:32] LABS: BASOPHILS # (AUTO) 0.1 10^3/uL (0.0-0.1); BASOPHILS % (AUTO) 1 % (0-10); EOSINOPHILS % (AUTO) 1 % (0-10); LYMPHOCYTES # (AUTO) 2.7 10^3/uL (1.0-4.0); LYMPHOCYTES % (AUTO) 35 % (12-44); MEAN CORPUSCULAR HEMOGLOBIN 32 pg (25-34); MONOCYTES # (AUTO) 0.8 10^3/uL (0.0-1.0); MONOCYTES % (AUTO) 11 % (0-12); NEUTROPHILS % (AUTO) 52 % (42-75)
[2022-10-30 21:41] LABS: ALBUMIN 4.4 GM/DL (3.2-4.5); BILIRUBIN,TOTAL 0.7 MG/DL (0.1-1.0); CALCIUM 9.7 MG/DL (8.5-10.1); CREATININE SERUM 0.92 MG/DL (0.60-1.30); POTASSIUM 3.9 MMOL/L (3.6-5.0); TOTAL PROTEIN 8.1 GM/DL (6.4-8.2)
--- NOTE | 2022-10-30 21:45 | Diagnostic Imaging Report ---
PROCEDURE: CT head without contrast. TECHNIQUE: Multiple contiguous axial images were obtained through the brain without the use of intravenous contrast. Auto Exposure Controls were utilized during the CT exam to meet ALARA standards for radiation dose reduction. INDICATION: Acute mental status change, prior history of stroke EXAMINATION: CT brain without contrast from 10/30/2022 COMPARISON: 12/26/2017 FINDINGS: There is a large area of encephalomalacia in the right parietal lobe. Secondary ex-vacuo dilatation of the right lateral ventricle stable. Other areas of chronic ischemic disease noted with no superimposed acute hemorrhage or infarct. There is no mass, mass effect or midline shift with no hydrocephalus. There is no acute sinus disease. IMPRESSION: 1. Chronic findings with no acute intracranial process. Dictated by: Dictated on workstation # [id number]
[2022-10-30 23:21] VITALS: BP 132/89
== END 2022-10-30 23:24 | disposition home or self-care (01) ==
LOC: EDUNIT# 18:53 → ER 18:53
DX: R51.9 Headache, unspecified (principal); R11.2 Nausea with vomiting, unspecified; I48.91 Unspecified atrial fibrillation; Z86.73 Personal history of transient ischemic attack (TIA), and cerebral infarction without residual deficits; Z86.718 Personal history of other venous thrombosis and embolism; Z20.822 Contact with and (suspected) exposure to COVID-19; Z79.01 Long term (current) use of anticoagulants
CPT/HCPCS: 36415; 70450; 80053; 85025; 85027; 86141; 87636

== ENCOUNTER → 2023-02-26 | Outpatient (CLI) | payer MEDICARE | LOC: CARD 13:44 | PROVIDERS: ATTEND Internal Medicine Cardiovascular Disease | DX: I42.0 Dilated cardiomyopathy (principal) | CPT/HCPCS: 93306 ==